=== PATIENT | female | born 1975 | race Caucasian/White ===

== ENCOUNTER 2021-12-26 15:14 | Emergency (ER) | payer OTHER, SELFPAY ==
--- NOTE | ~2021-12-26 | XR_ITS ---
EXAMINATION: XR CHEST CLINICAL INFORMATION: Cough/asthma. COMPARISON: None TECHNIQUE: Frontal view of the chest was obtained. FINDINGS: No significant abnormality is noted involving the heart, lungs, mediastinum, bony thorax or soft tissues. XR/XR chest 1V IMPRESSION: Unremarkable chest examination.
[2021-12-26 15:48] VITALS: BP 158/97; PULSE 112; RESP 20; TEMP 36.3; O2SAT 96; BMI 21.2
[2021-12-26 16:19] LABS: COVID-19 Test Negative (Negative); IDNOW Serial# 16C4AD1C
--- NOTE | 2021-12-26 17:12 | ED_ITS ---
HPI - Asthma General Chief Complaint: Asthma Stated Complaint: asthma Time Seen by Provider: 12/26/21 17:12 Source: patient Mode of arrival: ambulatory Limitations: no limitations History of Present Illness HPI Narrative: 46-year-old female presents to the emergency department with complaints of cough, shortness of breath times a week. Patient tells me that this feels like her typical asthma attack however it has been going on for much longer than her usual asthma. Patient tells me she is coughing up yellow sputum. She also reports shortness of breath worse with exertion better at rest. Patient tells me she was seen by her primary care provider who prescribed her special inhaler, Tessalon Perles with little to no relief. Patient tells me that she has not been feeling good over the past week. Denies any recent sick contacts. Denies chest pain, nausea, vomiting, abdominal pain, headache, vision changes, dizziness. MD complaint: asthma attack Onset (ago): week(s) (1) Severity: moderate Context: none known Associated symptoms: none Treatments Prior to Arrival: inhaled bronchodilator and inhaled steroid Related Data Previous Rx's Medication Instructions Recorded albuterol sulfate 90 mcg/actuation 2 inh INHALATION Q4-6H PRN #1 ea 12/26/21 breath activated powder inhaler azithromycin 250 mg tablet See Rx Instructions .ROUTE 12/26/21 .COMPLEX #6 tab prednisone 20 mg tablet 20 mg PO DAILY 5 Days #5 tab 12/26/21 Allergies Allergy/AdvReac Type Severity Reaction Status Date / Time No Known Allergies Allergy Verified 12/26/21 15:48 Review of Systems Review of Systems: Constitutional : No Weight loss, No Fever, No Chills, No Fatigue, No Malaise ENT/Mouth : No sore throat, No Rhinorrhea Eyes: No Eye Pain, No Swelling, No Redness Cardiovascular : No Chest Pain, + SOB, No Dyspnea on Exertion, No Orthopnea, No Edema, No Palpitations Respiratory : No Cough, No Sputum, + Wheezing Gastrointestinal : No Nausea, No Vomiting, No Diarrhea, No Constipation, No abdominal Pain, No Hematochezia, No Melena Genitourinary : No Dysuria, No Urinary Frequency, No Hematuria, Musculoskeletal : No joint pain, No Myalgias, No Joint Swelling Skin : No Skin Lesions, No rash Neuro : No Weakness, No Numbness, No Dizziness, No Headache Psych : No Anxiety/Panic, No Depression All other systems reviewed and are negative Yes all other systems are reviewed and are negative [facility] Past Medical History Attestation statement: The following information was validated with the patient. Source: old records reviewed and nursing notes reviewed Social History Social History Advance Directives: No Advance Directives Information Provided: No Physical Exam Vital Signs: Vital Signs: Last Vital Signs Temp 99.2 F 12/26/21 20:37 Pulse 112 H 12/26/21 20:37 Resp 16 12/26/21 20:37 BP 127/66 12/26/21 20:37 Pulse Ox 98 12/26/21 20:37 BMI result Body Mass Index 21.2 VSS slightly tachycardic likely secondary to albuterol treatments. Appearance: Alert.? Oriented X3.? No acute distress.? Head: Normocephalic, atraumatic, no step-offs or deformities Eyes: Pupils equal, round and reactive to light.? ENT: Pharynx normal.? Neck: Normal inspection.? Neck supple.? CVS: Normal heart rate and rhythm.? Pulses normal.? Respiratory: No respiratory distress.? Breath sounds normal.? Abdomen: Soft and nontender.? Skin: Skin warm and dry.? Normal skin color.? Normal skin turgor.? Extremities: No lower extremity edema.? No calf ttp. 5/5 strength to bilateral upper and lower extremities Back: No midline tenderness, no C-spine tenderness, full range of motion, no CVA tenderness bilaterally Neuro: Oriented X 3.? No motor deficit.? No sensory deficit. CN 2-12 intact Course Reevaluation(s) Reevaluation #1: CBC with a slight microcytic anemia, however patient not complaining of any bleeding at this time. Chemistry with no acute findings. D-dimer negative unlikely. COVID, flu, RSV negative. Upon re-evaluation after Solu-Medrol and magnesium patient sounds much better, moving air bilaterally, no wheezing appreciated. Patient is saturating well on room air, patient is slightly tachycardic likely secondary to albuterol treatments. Chest x-ray unremarkable. A DuoNeb has been ordered at this time which will be given to patient prior to her discharge. Patient will be discharged home on a Z-Bob, albuterol, predniso ne. Advised her to return with new or worsening symptoms. Patient's history and physical examination consistent with bronchitis. Unlikely PE. Comfortable with discharge home with PCP follow-up. Prior to patient discharge he was ambulating around the emergency department, post ambulatory O2 set and a 2 said during ambulation steadily 98% on room air. At this time patient will be discharged home Time: 21:06 MDM - Asthma MDM Narrative Medical decision making narrative: [id number] 46-year-old female presents with ?asthma attack ?x1 week. Patient also reports productive cough which has been bothering her. Physical examination with diminished breath sounds bilaterally, expiratory wheezing, regular rate and rhythm, negative Abdi bilaterally, abdomen soft nontender nondistended. Neuro exam nonfocal. PERC score of 1 due to tachycardia however tachycardia likely secondary to albuterol treatments at home. Plan at this time is imaging, albuterol treatment, re-evaluation afterwards. Medical Records Attestation: I reviewed the patient's medical records. Lab Data Attestation: I reviewed the patient's lab results. Result diagrams: 12/26/21 17:38 12/26/21 17:38 Labs: Lab Results 12/26/21 12/26/21 12/26/21 Range/Units 15:53 17:38 17:38 WBC 6.9 (4.8-10.8) X10*3/uL RBC 4.74 (4.20-5.50) X10*6/uL Hgb 10.9 L (12.0-16.0) g/dl Hct 35.1 L (37.0-47.0) % MCV 74.1 L (80.0-98.0) fL MCH 23.0 L (27.0-33.0) pg MCHC 31.1 (31.0-35.0) g/dl RDW 17.2 H (11.0-16.0) % Plt Count 345 (160-400) X10*3/uL MPV 8.8 L (9.4-12.3) fL Immature Gran % (Auto) 0.4 (0.0-0.4) % Neut % (Auto) 63.0 (45-73) % Lymph % (Auto) 23.2 (20-40) % [place] % (Auto) 11.1 H (2-11) % Eos % (Auto) 1.9 (0-4) % Baso % (Auto) 0.4 (0-2) % Lymph # (Auto) 1.6 (1.2-4.9) X10*3/uL [place] # (Auto) 0.8 (0.1-1.2) X10*3/uL Eos # (Auto) 0.1 (0.0-0.4) X10*3/uL Baso # (Auto) 0.0 (0.0-0.2) X10*3/uL Abs Immat Gran (auto) 0.03 (0.00-0.03) X10*3/uL Absolute Neuts (auto) 4.3 (2.0-8.3) x10*3/uL Absolute Nucleated RBC 0.000 (0.0-0.012) X10*3/uL Nucleated RBC % (auto) 0.0 (0.0-0.2) /100WBC D-Dimer High Sensitivty < 150 NG/ML Sodium (135-145) mmol/L Potassium (3.3-5.1) mmol/L Chloride (96-108) mmol/L Carbon Dioxide (22-29) mmol/L Anion Gap (12-20) BUN (9-16) mg/dL Creatinine (0.5-1.4) mg/dL Estim Creat Clear Calc Estimated GFR Random Glucose (60-115) mg/dL Calcium (8.4-10.2) mg/dL Magnesium (1.6-2.6) mg/dL Total Bilirubin (0.0-1.0) mg/dL AST (5-31) U/L ALT (0-31) U/L Alkaline Phosphatase (39-117) U/L Total Protein (6.5-8.0) g/dL Albumin (3.5-5.0) g/dL COVID-19 (CROW) Negative (Negative) COVID-19 Clin Com See Note Influenza Type A (PCR) (Negative) Influenza Type B (PCR) (Negative) RSV RNA Qual (PCR) (Negative) SARS-CoV-2 RNA (RT-PCR) (Negative) 12/26/21 12/26/21 Range/Units 17:38 19:19 WBC (4.8-10.8) X10*3/uL RBC (4.20-5.50) X10*6/uL Hgb (12.0-16.0) g/dl Hct (37.0-47.0) % MCV (80.0-98.0) fL MCH (27.0-33.0) pg MCHC (31.0-35.0) g/dl RDW (11.0-16.0) % Plt Count (160-400) X10*3/uL MPV (9.4-12.3) fL Immature Gran % (Auto) (0.0-0.4) % Neut % (Auto) (45-73) % Lymph % (Auto) (20-40) % [place] % (Auto) (2-11) % Eos % (Auto) (0-4) % Baso % (Auto) (0-2) % Lymph # (Auto) (1.2-4.9) X10*3/uL [place] # (Auto) (0.1-1.2) X10*3/uL Eos # (Auto) (0.0-0.4) X10*3/uL Baso # (Auto) (0.0-0.2) X10*3/uL Abs Immat Gran (auto) (0.00-0.03) X10*3/uL Absolute Neuts (auto) (2.0-8.3) x10*3/uL Absolute Nucleated RBC (0.0-0.012) X10*3/uL Nucleated RBC % (auto) (0.0-0.2) /100WBC D-Dimer High Sensitivty NG/ML Sodium 139 (135-145) mmol/L Potassium 4.0 (3.3-5.1) mmol/L Chloride 104 (96-108) mmol/L Carbon Dioxide 24 (22-29) mmol/L Anion Gap 15 (12-20) BUN 13 (9-16) mg/dL Creatinine 0.85 (0.5-1.4) mg/dL Estim Creat Clear Calc 69.8 Estimated GFR > 60 Random Glucose 143 H (60-115) mg/dL Calcium 9.4 (8.4-10.2) mg/dL Magnesium 2.0 (1.6-2.6) mg/dL Total Bilirubin < 0.2 (0.0-1.0) mg/dL AST 27 (5-31) U/L ALT 29 (0-31) U/L Alkaline Phosphatase 67 (39-117) U/L Total Protein 7.0 (6.5-8.0) g/dL Albumin 4.2 (3.5-5.0) g/dL COVID-19 (CROW) (Negative) COVID-19 Clin Com Influenza Type A (PCR) NEGATIVE (Negative) Influenza Type B (PCR) NEGATIVE (Negative) RSV RNA Qual (PCR) NEGATIVE (Negative) SARS-CoV-2 RNA (RT-PCR) NEGATIVE (Negative) Critical Care Time Critical Care Time Critical Care Time: No Discharge Plan Discharge Clinical Impression: Asthma with acute exacerbation, Acute bronchitis Patient Disposition: Home, Self-Care Instructions: Asthma (ED), Acute Bronchitis (ED) Additional Instructions: Take your medications as prescribed. If you were prescribed antibiotics today, it is important that you take your medication to their entirety, do not skip any doses, do not finish them early. Follow-up with your primary care provider this week. Return to the emergency department with new or worsening symptoms. Such as fevers, chills, chest pain, shortness of breath, nausea, vomiting, dizziness, headache, vision changes, lethargy, weakness, leg swelling or calf tenderness In case of emergency call 911 Prescriptions: New azithromycin 250 mg tablet See Rx Instructions .ROUTE .COMPLEX Qty: 6 0RF Rx Instructions: For 250 mg dose pack: take 500 mg today (day 1), then 250 mg for 4 days (days 2-5) albuterol sulfate 90 mcg/actuation aerosol powdr breath activated 2 inh inhalation Q4-6H PRN (Reason: shortness of breath or wheezing) Qty: 1 0RF prednisone 20 mg tablet 20 mg PO DAILY 5 Days Qty: 5 0RF Referrals: Physician,Unknown J [Primary Care Provider] - 2 days Stand Alone Forms: Work/School Release
[2021-12-26 17:18] VITALS: BP 143/59; PULSE 104; RESP 18; O2SAT 98
[2021-12-26 17:43] LABS: MANUAL DIFF FLAG NO
[2021-12-26 17:45] LABS: Basophils Percent Auto 0.4 % (0-2); Eosinophils Absolute Auto 0.1 X10*3/uL (0.0-0.4); Eosinophils Percent Auto 1.9 % (0-4); Hematocrit 35.1 % (37.0-47.0); Hemoglobin 10.9 g/dl (12.0-16.0); Imm Gran Abs Auto 0.03 X10*3/uL (0.00-0.03); Imm Gran Pct Auto 0.4 % (0.0-0.4); Lymphocytes Absolute Auto 1.6 X10*3/uL (1.2-4.9); Lymphocytes Percent Auto 23.2 % (20-40); Mean Corpuscular HGB Conc 31.1 g/dl (31.0-35.0); Mean Corpuscular Volume 74.1 fL (80.0-98.0); Mean Platelet Volume 8.8 fL (9.4-12.3); Monocytes Absolute Auto 0.8 X10*3/uL (0.1-1.2); Monocytes Percent Auto 11.1 % (2-11); Neutrophils Absolute Auto 4.3 x10*3/uL (2.0-8.3); Platelet Count 345 X10*3/uL (160-400); Red Blood Count 4.74 X10*6/uL (4.20-5.50); Red Cell Distribution Width 17.2 % (11.0-16.0); White Blood Count 6.9 X10*3/uL (4.8-10.8)
[2021-12-26 17:50] VITALS: PULSE 102; RESP 18; O2SAT 99
[2021-12-26] MEDS: Albuterol Sulfate (0.083%) 2.5 MG/3 ML VIAL.NEB 10 MG INHALE (17:50)
[2021-12-26 18:03] LABS: D Dimer High Sensitivity < 150 NG/ML
[2021-12-26 18:39] LABS: Alanine Aminotransferase 29 U/L (0-31); Albumin Level 4.2 g/dL (3.5-5.0); Alkaline Phosphatase 67 U/L (39-117); Anion Gap 15 (12-20); Aspartate Amino Transferase 27 U/L (5-31); Bilirubin Total < 0.2 mg/dL (0.0-1.0); Blood Urea Nitrogen 13 mg/dL (9-16); Calcium 9.4 mg/dL (8.4-10.2); Carbon Dioxide 24 mmol/L (22-29); Chloride 104 mmol/L (96-108); Creatinine Clr Calc Pharmacy 69.8; Estimated Glomerular Filt Rate > 60; Glucose Random 143 mg/dL (60-115); Sodium 139 mmol/L (135-145)
[2021-12-26] MEDS: Magnesium Sulfate/H2O 2 GM/50 ML PIGGYBACK IV (19:14)
[2021-12-26] MEDS: methylPREDNISolone Sod Succ 125 MG/2 ML VIAL IVPUSH (19:14)
[2021-12-26 20:05] LABS: Influenza A PCR NEGATIVE (Negative); Influenza B PCR NEGATIVE (Negative); Resp Syncy Virus RNA Qual PCR NEGATIVE (Negative); SARS COV2 PCR INHOUSE NEGATIVE (Negative)
[2021-12-26 20:37] VITALS: BP 127/66; PULSE 112; RESP 16; TEMP 37.3; O2SAT 98
[2021-12-26] MEDS: Ketorolac Tromethamine 15 MG/ML VIAL IVPUSH (21:23)
== END 2021-12-26 21:28 | disposition home or self-care (01) ==
PROVIDERS: Physician Assistant; Emergency Provider Internal Medicine
DX: J45.901 Unspecified asthma with (acute) exacerbation (principal); J20.9 Acute bronchitis, unspecified; Z20.822 Contact with and (suspected) exposure to COVID-19
CPT/HCPCS: 0241U; 36415; 71045; 80053; 83735; 85025; 85379; 87635; 94640; 94644; 96365; 96366; 96375; 99284; J1885; J2930; J3475

== ENCOUNTER 2022-07-18 22:29 | Emergency (ER) | payer OTHER, SELFPAY ==
[2022-07-18 22:34] VITALS: BP 146/92; PULSE 115; RESP 18; TEMP 37.1; O2SAT 96; BMI 45.4
--- NOTE | 2022-07-18 23:17 | ED.WOUNDLAC ---
HPI - Wound/Laceration General Chief Complaint: Wound/Laceration Stated Complaint: Finger lac Time Seen by Provider: 07/18/22 22:47 Source: patient Mode of arrival: ambulatory Limitations: no limitations History of Present Illness HPI narrative: 47-year-old female presents with a laceration to the left index finger. Patient cut her finger while making dinner. Unknown when her last Tdap was updated. Patient also reports upper respiratory symptoms for 3 days. Onset (ago): hour(s) Place: home Patient tetanus UTD: No Context: accidental Associated symptoms: pain Treatments prior to arrival: bandage Related Data Previous Rx's Medication Instructions Recorded albuterol sulfate 90 mcg/actuation 2 inh inhalation Q4-6H PRN 12/26/21 breath activated powder inhaler shortness of breath or wheezing #1 ea azithromycin 250 mg tablet See Rx Instructions PO .COMPLEX #6 12/26/21 tabs prednisone 20 mg tablet 20 mg PO DAILY 5 days #5 tabs 12/26/21 Allergies Allergy/AdvReac Type Severity Reaction Status Date / Time No Known Allergies Allergy Verified 12/26/21 15:48 Review of Systems Review of Systems: Constitutional: Phos Fever, pus Chills ENT/Mouth: No Ear Pain, No Hoarseness, positive sore throat Eyes: No Eye Pain, No Swelling, No Redness, No Foreign Body Cardiovascular: No Chest Pain, No SOB Respiratory: Phos Cough, No Dyspnea Gastrointestinal: No Nausea, No Vomiting, No Diarrhea, No abdominal Pain Genitourinary: No Dysuria, No Hematuria Musculoskeletal: positive left index finger pain, No Myalgias, No Joint Swelling Skin: Positive left index finger laceration, No rash Neuro: No Weakness, No Numbness, No Paresthesias, No Loss of Consciousness, No Dizziness, positive Headache Yes all other systems are reviewed and are negative ON LICENSE OF [facility] Past Medical History Attestation statement: The following information was validated with the patient. Source: old records reviewed Social History Social History Advance Directives: No Advance Directives Information Provided: No Physical Exam Vital Signs: Vital Signs: Last Vital Signs Temp 98.7 F 07/18/22 22:34 Pulse 115 H 07/18/22 22:34 Resp 18 07/18/22 22:34 BP 146/92 H 07/18/22 22:34 Pulse Ox 96 07/18/22 23:45 O2 Del Method 07/18/22 22:34 BMI result Body Mass Index 45.4 Appearance: Alert. Oriented X3. No acute distress. Eyes: Pupils equal, round and reactive to light. ENT: Pharynx normal. Positive rhinorrhea. Neck: Normal inspection. Neck supple. CVS: Tachycardic heart rate and rhythm. Pulses normal. Respiratory: No respiratory distress. Breath sounds normal. Abdomen: Soft and nontender. Skin: 0.5 cm laceration across the left index finger nail. Extremities: Gait well balanced well coordinated. Neuro: No motor deficit. No sensory deficit. Cranial nerves 2-12 intact. Course Course Course Narrative: 47-year-old female presents for multiple concerns. First concern is her upper respiratory symptoms that she has had for about 2-3 days. Has a dry scratchy throat, intermittent fevers and chills, and cough. She presents tachycardic at 115, I do suspect that this is viral syndrome. Second concern is the superficial laceration across her nailbed to the left index finger. Patient does have full range of motion. Nail is not avulsed from the tip of the finger. Plan is for Steri-Strips. Will update Tdap vaccine at this time. Patient understands viral syndrome and supportive measures, most likely the flu. Patient also understands wound care, verbalized understanding of and agrees to plan of care discharge home. I will call her with her results. 04:00 flu positive. I did call this patient to update on positive influenza results. Medications Administered Discontinued Medications Generic Name Dose Route Start Last Admin Trade Name Freq PRN Reason Stop Dose Admin Diphtheria/Tetanus/Acell Pertussis 0.5 ml 07/18/22 22:58 07/18/22 23:05 Diphth,Pertus(Acell),Tet Adult 0.5 Ml Syringe IM 07/18/22 22:59 0.5 ml .ONCE ONE Administration Medical Decision Making Differential Diagnosis Differential Diagnoses: The differential diagnosis associated with the presentation includes Laceration, influenza, COVID, RSV Lab Data [facility] Lab Attestation statement: I reviewed the patient's lab results. Labs: Lab Results 07/18/22 Range/Units 22:43 Influenza Type A (PCR) POSITIVE A (Negative) Influenza Type B (PCR) NEGATIVE (Negative) RSV RNA Qual (PCR) NEGATIVE (Negative) SARS-CoV-2 RNA (RT-PCR) NEGATIVE (Negative) External Record Review External record reviewed: Inpatient record Discharge Plan Discharge Clinical Impression: Laceration, Acute viral syndrome Patient Disposition: Home, Self-Care Instructions: Finger Laceration (ED), Viral Syndrome (ED), Skin Adhesive Care (ED) Additional Instructions: You were evaluated for laceration to the finger. I placed Steri-Strips. Please keep this clean and dry. You may wash her hands as needed. Do not soak the finger. Steri-Strips to fall off on own. We updated your Tdap vaccine today. For upper respiratory symptoms, this is a viral syndrome. Her influenza RSV COVID test is pending. I will call you with your results. Alternate Tylenol 650 mg every 6 hours as needed and Motrin 600 mg every 6 hours as needed for pain and fever management. Write down what time you give the medications to prevent accidental overdose. drink plenty of fluids. Thank you for choosing this emergency department for evaluation. Please follow-up with primary care physician as needed. Return to the emergency department for any new, concerning, or worsening symptoms. Prescriptions: No Action azithromycin 250 mg tablet See Rx Instructions .ROUTE .COMPLEX Qty: 6 0RF Rx Instructions: For 250 mg dose pack: take 500 mg today (day 1), then 250 mg for 4 days (days 2-5) albuterol sulfate 90 mcg/actuation aerosol powdr breath activated 2 inh inhalation Q4-6H PRN (Reason: shortness of breath or wheezing) Qty: 1 0RF prednisone 20 mg tablet 20 mg PO DAILY 5 Days Qty: 5 0RF Interventions: ED Discharge Assessment Last Done: 07/19/22 00:19 Discharge Date/Time: 07/19/22 00:23
[2022-07-18 23:27] LABS: Influenza A PCR POSITIVE (Negative); Influenza B PCR NEGATIVE (Negative); Resp Syncy Virus RNA Qual PCR NEGATIVE (Negative); SARS COV2 PCR INHOUSE NEGATIVE (Negative)
[2022-07-18 23:45] VITALS: O2SAT 96
== END 2022-07-19 00:23 | disposition home or self-care (01) ==
PROVIDERS: Emergency Provider Emergency Medicine; PCP Physician Assistant Medical
DX: J11.1 Influenza due to unidentified influenza virus with other respiratory manifestations (principal); R00.0 Tachycardia, unspecified; S61.211A Laceration without foreign body of left index finger without damage to nail, initial encounter; W45.8XXA Other foreign body or object entering through skin, initial encounter; Y93.G1 Activity, food preparation and clean up; Y92.030 Kitchen in apartment as the place of occurrence of the external cause; Y99.9 Unspecified external cause status; Z20.822 Contact with and (suspected) exposure to COVID-19
CPT/HCPCS: 0241U; 90471; 90715; 99282; 99284

== ENCOUNTER → 2023-04-13 12:48 | Outpatient (BNVA) | payer OTHER, SELFPAY | PROVIDERS: PCP Physician Assistant Medical; Visit Provider Physician Assistant ==

== ENCOUNTER 2023-05-04 12:21 | Outpatient (AMB) | payer OTHER, SELFPAY ==
--- NOTE | 2023-05-04 12:45 | MHC.OFFVISWM ---
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 SWL Relationship Executive Required: Yes Relationship Executive Name: cmi Allergies No Known Allergies Allergy (Verified 05/04/23 12:55) Medication List - Last Reconciled 05/04/23 by ANIL Russo albuterol sulfate 90 mcg/actuation 2 inhalations inhalation Q4-6H PRN amitriptyline 75 mg PO BEDTIME baclofen 20 mg PO BID bupropion HCl 150 mg PO QAM cetirizine 10 mg PO DAILY cyclobenzaprine 5 mg PO TID PRN fluocinonide 0.05% appl topical BID fluticasone propionate 50 mcg/actuation 2 sprays intranasal QAM metformin ER 750 mg PO QPM montelukast 10 mg PO DAILY pantoprazole 40 mg PO DAILY tizanidine 4 mg PO TID triamcinolone acetonide 0.025% topical BID HPI HPI Comments History of Present Illness Details Pt is here to start the [facility] surgical weight loss program. She was here about 3 years ago starting the SWL program w Dr Bocanegra but did not have surgery as she did not have the emotional support at home and she left the program. This issue has been resolved. Her goal is to lose weight and achieve a healthy lifestyle as well as to improve, if not resolve, obesity related medical conditions, including DM and MONICA. She reports first being concerned about her weight 8 years ago, highest weight to date was 268. Her initial presentation to the SWL clinic at [facility] was on 04/13/23 and her weight at that time was 246.2 pounds with a BMI of 42.3. She made the effort to reduce sugars and carbs in her diet. Current weight is 240.2 pounds with a BMI of 40.6. She has tried multiple methods of weight loss including fad diets and previous SWL program without permanent results. She lives with her kids. She does not currently work She states that she has a significant history of bilateral knee osteoarthritis. She is scheduled for a left total knee replacement at [facility] on 06/22/2023 and is planning to have her right total knee replacement done approximately 4-6 months later. She would like to have bariatric surgery between her knee replacement surgeries if possible and this was discussed with her that it is likely going to be possible if she is able to complete the pre-surgical requirements. She wakes at:?8 am, and goes to bed at?10 pm. Dinner is at 6 pm. Breakfast: coffee, eggs toast AM snack: skip or fruit Lunch: leftovers PM snack: fruit Dinner: pasta, rice, meat, salad After dinner: skip Other snacks: celebration time cakes Liquids: 64 oz water daily, no juice, no soda Alcohol/marijuana/tobacco intake: none Exercise: no gym membership, no cardio equipment at home. willing to join gym [employer] or [employer] or [facility]. GERD score: 16 LIONEL score: 4 ESS score: 18 QOL score: 124 [facility] Surgical History History of Ritchie colposuspension H/O knee surgery Family History Mother Diabetes Father Leukemia Daughter Asthma Son No problems noted. Son No problems noted. Daughter No problems noted. Social History Household Members: Children Housing: Apartment Alcohol intake: current Alcohol intake frequency: holidays/special occasions only Patient Tobacco Use Status: Never used Tobacco Current occupational status: unemployed Review of Systems Const All systems reviewed & are unremarkable except as noted in HPI and below Physical Exam Vital Signs: Last Vital Signs Temp 97.4 F 05/04/23 12:59 Pulse 96 05/04/23 12:59 BP 153/87 H 05/04/23 12:59 Pulse Ox 96 05/04/23 12:59 Oxygen Delivery Method Room Air 05/04/23 12:59 BMI result Body Mass Index 40.6 Const General: cooperative, healthy appearing and no acute distress Orientation/consciousness: patient oriented x3 HEENT Head: Yes normal to inspection Ears: hearing grossly normal bilaterally General nose exam: Normal external nose present Face and sinus: Yes normal facial exam Eyes General: appearance normal, both eyes and all related structures Resp Effort & Inspection: normal respiratory effort Auscultation: clear to auscultation bilaterally Cardio Rate: regular rate Rhythm: regular rhythm Heart sounds: S1 normal heart sound present and S2 normal heart sound present GI Inspection: Yes normal to inspection, No distended and Yes obesity Palpation (GI): Soft to palpation, nontender and no guarding Auscultation: normal bowel sounds Skin General skin exam: no rashes or lesions noted Neuro General: patient oriented x3 Extrem General: No edema Psych Appearance: grossly normal Mental Status: mental status grossly normal Speech and movement: Normal speech and movement present Affect: normal affect Attitude: cooperative Assessment & Plan Assessment & Plan (1) Morbid obesity: Code(s): E66.01 - Morbid (severe) obesity due to excess calories Plan: This is a?48 yo female who will start our SWL program to prepare for bariatric surgery.? Blood work, h pylori , CXR, ECG, Abd US and UGI have been ordered. She is being scheduled for RD and BH initial consultations. She will start SWL classes and watch the first three videos before her next appointment. ? Adequate sleep of 7-8 hours per night discussed, awakening at 8 am and going to bed at 10 pm ? Purchase body composition analyzer scale (Sachi lim or Raman recommended) and check weight weekly. The best time to do this is first thing in the morning after going to the bathroom. 1. Nutritional counseling: Be sure to careful read the number of scoops per shake Start with 2 Celebrate Rebuild shakes ([facility] [employer], [employer], [place]) First shake (1.5 scoops in 15 oz low fat unsweetened almond milk) at 9am-11am, Second shake (1.5 scoops in 15 oz low fat unsweetened almond milk) at 11am-1pm 1 protein bar ([employer] bars at [facility] [employer], [employer], [place]) at 1pm-3pm. Dinner at 5-6pm (8 forks of protein and 8 forks of salad/vegetables). Meal to include lean meat (beef, fish, pork, turkey, chicken), cooked vegetables or a salad with olive oil and/or fruits (berries, pears, apples, kiwi). Avoid salt, breads, potatoes, rice, pasta, desserts. Another protein bar at 7pm-9pm. Try to drink 64 oz of water daily and avoid soda and juices. ?2. Each shake would be drunk slowly, like coffee in a period of 2 hours. ?3. Cut each bar in 4 pieces and eat each piece in 30 min ?to make each bar last 2 hours. ?4. I emphasized the importance of measuring accurately the food portion and measure it carefully when serving the food on the plate ?5. The meal portions include 8 full-size forks of meat and 8 full-size forks of salad. You always eat the meat portion but you can replace up to half of the forks of salad/vegetables with rice, potatoes or pasta, or a fruit ?if you like. The less you do it the better weight loss will be. ?6. One full-size fork is what can be scooped on the fork without falling aside and not what can be bit with the fork. Use regular forks like those you find in a typical restaurant. ?7.? Please send me weight measurements as soon as possible and then once a week. Always include your diet and exercise plan. Alternatively come weekly at the office for weight checks and send me the measurements. ?8. Exercise counseling: Begin by watching a stretching for beginners video. Start slowly and begin to stretch your muscles. You should do this before and after each exercise session to prevent injury. Please join [employer] or [employer] or [employer] gym near your home. Ask the analytics senior manager or one of the trainers how to use the machines if you are unfamiliar with them. Start elliptical with a resistance of 2. Increase resistance by 1 every 3 min to your most comfortable resistance with a max resistance of 8. Reduce the resistance by 1 every 3 minutes back down to 2 and repeat cycles for 300 calories. Alternatively, start treadmill with a speed of 3.0 and incline of 0, increasing incline by 1 every 3 minutes to the highest comfortable level (max 6 for now) then decrease in the same fashion. Repeat process to a goal of 300 calories. Goal of 2000 calories burned or more weekly. You may also consider use of the stationary bike. The easiest would be to chose the fat-burn or interval training program on the machine and do this until you reach the 300 calorie goal. Alternatively, you can manually adjust the resistance in a similar fashion as mentioned above, (resistance of 2-8 with a goal speed of 12 mph). Tracking calories is essential. 9. Alternatively start walking outside daily, tracking calories with a goal of 300 calories per day, daily. You can download the breanne [employer] which can track your time, distance and calories while walking outside. You press start in the breanne when you start and then stop when you are finished. 10.? It is important to avoid for at least 18 months postoperatively and it has been discussed at the information session 11. Please get labs, EKG and chest X-Ray within 1 week. 12. Discussed and answered all questions regarding?obtained consent to participate in the [place] [facility]?Registry. 13. Please follow the diet plan exactly, without any change. If you do not like something about the plan or you feel hungry, you need to communicate with me so I can help you revise the plan. You should not change the plan yourself. Text me at [phone] 14. Goal is to lose at least 12 pounds in the first month 15. Goal is to lose 10% of your weight before surgery, which is about 24 lbs. Ultimate weight goal: 216 lbs before surgery Patient is morbidly obese and is not considered stable at this time.?I spent a total of 70 minutes reviewing/updating records, examining the patient and counseling the patient on weight management as detailed above. Orders: Orders Insulin Today E11.9 - Type 2 diabetes mellitus without complications, E66.01 - Morbid (severe) obesity due to excess calories Lipid Panel Today E11.9 - Type 2 diabetes mellitus without complications, E66.01 - Morbid (severe) obesity due to excess calories Vitamin B12 and Folate Today E11.9 - Type 2 diabetes mellitus without complications, E66.01 - Morbid (severe) obesity due to excess calories Vitamin A Today E11.9 - Type 2 diabetes mellitus without complications, E66.01 - Morbid (severe) obesity due to excess calories C Reactive Protein Today E11.9 - Type 2 diabetes mellitus without complications, E66.01 - Morbid (severe) obesity due to excess calories PTHI Today E11.9 - Type 2 diabetes mellitus without complications, E66.01 - Morbid (severe) obesity due to excess calories TSH reflex Free T4 Today E11.9 - Type 2 diabetes mellitus without complications, E66.01 - Morbid (severe) obesity due to excess calories H Pylori Breath Test Today E11.9 - Type 2 diabetes mellitus without complications, E66.01 - Morbid (severe) obesity due to excess calories Vitamin D 25-OH Total Today E11.9 - Type 2 diabetes mellitus without complications, E66.01 - Morbid (severe) obesity due to excess calories US abdomen comp w elastography Today E11.9 - Type 2 diabetes mellitus without complications, E66.01 - Morbid (severe) obesity due to excess calories ECG 12 lead EKG Today E11.9 - Type 2 diabetes mellitus without complications, E66.01 - Morbid (severe) obesity due to excess calories FL upper GI w air Today E11.9 - Type 2 diabetes mellitus without complications, E66.01 - Morbid (severe) obesity due to excess calories IRON PROFILE Today E11.9 - Type 2 diabetes mellitus without complications, E66.01 - Morbid (severe) obesity due to excess calories Complete Blood Count Auto Diff Today E11.9 - Type 2 diabetes mellitus without complications, E66.01 - Morbid (severe) obesity due to excess calories Zinc Today E11.9 - Type 2 diabetes mellitus without complications, E66.01 - Morbid (severe) obesity due to excess calories Comprehensive Met. Panel Today E11.9 - Type 2 diabetes mellitus without complications, E66.01 - Morbid (severe) obesity due to excess calories Vitamin B1 Today E11.9 - Type 2 diabetes mellitus without complications, E66.01 - Morbid (severe) obesity due to excess calories Ferritin Today E11.9 - Type 2 diabetes mellitus without complications, E66.01 - Morbid (severe) obesity due to excess calories Hemoglobin A1c Today E11.9 - Type 2 diabetes mellitus without complications, E66.01 - Morbid (severe) obesity due to excess calories XR chest 2V Today E11.9 - Type 2 diabetes mellitus without complications, E66.01 - Morbid (severe) obesity due to excess calories Referrals Nutrition/Dietitian Referral E11.9 - Type 2 diabetes mellitus without complications, E66.01 - Morbid (severe) obesity due to excess calories Behavioral Health Referral E11.9 - Type 2 diabetes mellitus without complications, E66.01 - Morbid (severe) obesity due to excess calories Coding Level of Care Code New Pt Level 5 (07701) Diagnoses Morbid obesity E66.01 Time Spent (min) 70
[2023-05-04 12:59] VITALS: BP 153/87; PULSE 96; TEMP 36.3; O2SAT 96; BMI 41.2
== END 2023-05-04 14:27 | disposition home or self-care (01) ==
PROVIDERS: PCP Physician Assistant Medical; Visit Provider Physician Assistant Surgical
DX: E66.01 Morbid (severe) obesity due to excess calories (principal); Z68.41 Body mass index [BMI] 40.0-44.9, adult
CPT/HCPCS: 99205

== ENCOUNTER → 2023-05-04 12:21 | Outpatient (BNVA) | payer OTHER, SELFPAY | PROVIDERS: PCP Physician Assistant Medical; Visit Provider Physician Assistant Surgical ==

== ENCOUNTER 2023-05-25 10:52 | Outpatient (REF) | payer OTHER, SELFPAY ==
--- NOTE | ~2023-05-25 | XR_ITS ---
EXAMINATION: XR CHEST CLINICAL INFORMATION: Morbid (severe) obesity due to excess calories COMPARISON: Chest 12/26/2021 TECHNIQUE: 2 views of the chest were obtained. FINDINGS: No significant abnormality is noted involving the heart, lungs, mediastinum, bony thorax or soft tissues. XR/XR chest 2V IMPRESSION: Unremarkable examination.
--- NOTE | 2023-05-25 10:57 | ECG_ITS ---
Test Reason : OBESITY Blood Pressure : / mmHG Vent. Rate : 103 BPM Atrial Rate : 103 BPM P-R Int : 124 ms QRS Dur : 078 ms QT Int : 322 ms P-R-T Axes : 039 046 024 degrees QTc Int : 421 ms Sinus tachycardia Otherwise normal ECG When compared with ECG of 17-JUN-2018 13:39, No significant change was found Referred By: Aleksey Darby Electronically Signed By:ATA CORBETT MD
[2023-05-25 11:19] LABS: MANUAL DIFF FLAG NO
[2023-05-25 11:46] LABS: Basophils Absolute Auto 0.1 X10*3/uL (0.0-0.2); Basophils Percent Auto 0.5 % (0-2); Eosinophils Absolute Auto 0.4 X10*3/uL (0.0-0.4); Hematocrit 35.5 % (37.0-47.0); Imm Gran Abs Auto 0.03 X10*3/uL (0.00-0.03); Imm Gran Pct Auto 0.3 % (0.0-0.4); Lymphocytes Absolute Auto 2.3 X10*3/uL (1.2-4.9); Lymphocytes Percent Auto 21.9 % (20-40); Mean Corpuscular Hemoglobin 21.7 pg (27.0-33.0); Mean Corpuscular Volume 69.9 fL (80.0-98.0); Mean Platelet Volume 8.8 fL (9.4-12.3); Monocytes Absolute Auto 0.7 X10*3/uL (0.1-1.2); Monocytes Percent Auto 6.8 % (2-11); Neutrophils Absolute Auto 6.9 x10*3/uL (2.0-8.3); Neutrophils Percent Auto 66.5 % (45-73); Platelet Count 462 X10*3/uL (160-400); Red Blood Count 5.08 X10*6/uL (4.20-5.50); Red Cell Distribution Width 17.3 % (11.0-16.0); White Blood Count 10.4 X10*3/uL (4.8-10.8)
[2023-05-25 11:50] LABS: Estimated Average Glucose 154 mg/dL
[2023-05-25 12:42] LABS: Alanine Aminotransferase 35 U/L (0-31); Albumin Level 4.3 g/dL (3.5-5.0); Alkaline Phosphatase 101 U/L (39-117); Anion Gap 12 (12-20); Aspartate Amino Transferase 31 U/L (5-31); Bilirubin Total 0.3 mg/dL (0.0-1.0); Blood Urea Nitrogen 11 mg/dL (9-16); C Reactive Protein 5.57 mg/dL (< or = 0.50); Calcium 9.9 mg/dL (8.4-10.2); Carbon Dioxide 28 mmol/L (22-29); Chloride 103 mmol/L (96-108); Cholesterol 207 mg/dL (<200); Estimated Glomerular Filt Rate > 60; Glucose Random 131 mg/dL (60-115); HDL Cholesterol 28 mg/dL (>40); Iron 18 mcg/dL (30-160); LDL Cholesterol Calculated 154 mg/dL (<100); Percent Iron Saturation 5 % (15-50); Potassium 3.9 mmol/L (3.3-5.1); Sodium 139 mmol/L (135-145); Total Iron Binding Capacity 362 mcg/dL (228-428); Total Protein 7.8 g/dL (6.5-8.0); Triglycerides 129 mg/dL (<150); Unsaturated Iron Binding 344 ug/dL
[2023-05-25 12:50] LABS: Ferritin 44 ng/mL (10-250); Insulin 17 uU/mL (2-29); TSH reflex Free T4 1.03 uIU/mL (0.32-4.0); Vitamin D 25-OH Total 26.7 ng/mL (>30)
[2023-05-25 13:07] LABS: Folate 13.8 ng/mL (> or = 4.0); Vitamin B12 975 pg/mL (200-900)
[2023-05-28 23:24] LABS: Zinc 66 mcg/dL (60-130)
[2023-05-30 00:48] LABS: Vitamin B1 19 nmol/L (8-30)
[2023-05-30 08:54] LABS: Vitamin A 27 mcg/dL (38-98)
[2023-06-01 09:54] LABS: Calcium (PTHI) 9.5 mg/dL (8.6-10.2); PTHI 54 pg/mL (16-77)
== END 2023-05-25 10:53 | disposition home or self-care (01) ==
LOC: HO.XRAY 10:52
PROVIDERS: Visit Provider Physician Assistant Surgical
DX: E66.01 Morbid (severe) obesity due to excess calories (principal); E11.9 Type 2 diabetes mellitus without complications
CPT/HCPCS: 36415; 71046; 80053; 80061; 82306; 82607; 82728; 82746; 83036; 83525; 83540; 83970; 84425; 84443; 84590; 84630; 85025; 86140; 93005

== ENCOUNTER 2023-05-26 10:12 | Outpatient (AMB) | payer OTHER, SELFPAY ==
--- NOTE | 2023-05-26 10:16 | MHC.OFFVISWM ---
Intake VS Expanded 05/26/23 10:26 BP 142/72 H Blood Pressure Location Lt brachial Blood Pressure Position Sitting Pulse 116 H Pulse Source Pulse Oximeter Temp 97.7 F Temperature Source Tympanic Pulse Oximetry 98 Oxygen Delivery Method Room Air Height 5 ft 4.5 in Weight 236 lb 3.2 oz BMI 39.9 Body Fat % 45.2 Body Fat Mass 106.8 Fat Free Mass 129.4 Visceral Fat Rating 13.0 Body Water % 39.1 Body Water Mass 92.4 Muscle Mass/Score 122.8 Basal Metabolic Rate/Score 1,819 Intake Visit Reasons: (OV) F/U SWL + H.Pylori Bar Examiner Required: Yes Bar Examiner Name: office cmi Allergies No Known Allergies Allergy (Verified 05/26/23 10:35) Medication List - Last Reconciled 05/26/23 by ANIL Russo albuterol sulfate 90 mcg/actuation 2 inhalations inhalation Q4-6H PRN amitriptyline 75 mg PO BEDTIME baclofen 20 mg PO BID bupropion HCl 150 mg PO QAM cetirizine 10 mg PO DAILY cholecalciferol (vitamin D3) 125 mcg PO DAILY 90 days cyclobenzaprine 5 mg PO TID PRN fluocinonide 0.05% appl topical BID fluticasone propionate 50 mcg/actuation 2 sprays intranasal QAM iron,carbonyl-vitamin C 65 mg iron- 125 mg (Vitron-C) 1 tab PO DAILY 90 days metformin ER 750 mg PO QPM montelukast 10 mg PO DAILY pantoprazole 40 mg PO DAILY tizanidine 4 mg PO TID triamcinolone acetonide 0.025% topical BID HPI HPI Comments History of Present Illness Details The patient is a pleasant 48 year old female who returns to the clinic for pre-operative surgical weight loss management. They were last seen in the office on 05/04/23, recorded weight at that time was 240.2 pounds, with a BMI of 41.2. Today's weight is 236.2 pounds and BMI is 40.6. There has been a weight loss of 10 pounds since initiating the surgical weight loss program on 04/13/23 with a total body weight loss of 4 %. Pre op work up completed as follows: SWL classes:? []/8 BH appts: 06/14/23 ? ? RD appts: 06/01/23 Labs: 05/25/23 A1c:7, mild anemia H. pylori: 05/26/23 CXR: not yet done EKG: not yet done ABD U/S: 06/19/23 UGI: 07/21/23 The patient reports she woke 2 days ago with significant low back pain. This is nonradiating, no significant bowel bladder changes. She saw a chiropractor yesterday although no manipulation was a double D done because of increased swelling. She has not sought any other medical care at this time. She is still scheduled for left total knee replacement on 06/22/2023. She states she is scheduled to go to [place] next week for approximately 2 weeks.. She is having coffee in the morning and having meal at lunch and dinner and apple for snack. She has not been able to purchase the protein products yet due to financial reasons. The patient does not have a body composition scale. They also have not been communicating weekly. Discussed the importance of following the plan, communicating and getting a scale. Current meal plan includes: 2 Celebrate Rebuild shakes ([facility] [employer], [employer], [employer]) First shake (1.5 scoops in 15 oz low fat unsweetened almond milk) at 9am-11am, Second shake (1.5 scoops in 15 oz low fat unsweetened almond milk) at 11am-1pm 1 protein bar ([employer] bars at [facility] [employer], [employer], [employer]) at 1pm-3pm. Dinner at 5-6pm (8 forks of protein and 8 forks of salad/vegetables). Meal to include lean meat (beef, fish, pork, turkey, chicken), cooked vegetables or a salad with olive oil and/or fruits (berries, pears, apples, kiwi). Avoid salt, breads, potatoes, rice, pasta, desserts. Another protein bar at 7pm-9pm. Drinking 64 oz of water Current exercise plan includes: cardio videos at home until back injury. [facility] Surgical History History of Ritchie colposuspension H/O knee surgery Family History Mother Diabetes Father Leukemia Daughter Asthma Son No problems noted. Son No problems noted. Daughter No problems noted. Social History Household Members: Children Housing: Apartment Alcohol intake: current Alcohol intake frequency: holidays/special occasions only Patient Tobacco Use Status: Never used Tobacco Current occupational status: unemployed Review of Systems Const All systems reviewed & are unremarkable except as noted in HPI and below Physical Exam Const General: healthy appearing and no acute distress Limitations: other limitations (back pain) Resp Effort & Inspection: normal respiratory effort Auscultation: clear to auscultation bilaterally Cardio Rate: regular rate Rhythm: regular rhythm GI Auscultation: normal bowel sounds Extrem General: Yes normal to inspection Assessment & Plan Assessment & Plan (1) Morbid obesity: Code(s): E66.01 - Morbid (severe) obesity due to excess calories Plan: She states that she will follow the meal plan, she will follow-up in the office after her left total knee replacement. She will text with any questions as well as her weekly weight. She will of attempt to get the body composition skill and protein products and start the meal plan. Coding Level of Care Code Est Pt Level 3 (91310) Diagnoses Morbid obesity E66.01
[2023-05-26 10:26] VITALS: BP 142/72; PULSE 116; TEMP 36.5; O2SAT 98; BMI 39.9
== END 2023-05-26 11:02 | disposition home or self-care (01) ==
PROVIDERS: PCP Physician Assistant Medical; Visit Provider Physician Assistant Surgical
DX: E66.01 Morbid (severe) obesity due to excess calories (principal); Z68.41 Body mass index [BMI] 40.0-44.9, adult
CPT/HCPCS: 99213

== ENCOUNTER → 2023-05-26 10:12 | Outpatient (BNVA) | payer OTHER, SELFPAY | PROVIDERS: PCP Physician Assistant Medical; Visit Provider Physician Assistant Surgical | DX: E66.01 Morbid (severe) obesity due to excess calories (principal); Z68.39 Body mass index [BMI] 39.0-39.9, adult | CPT/HCPCS: 99212 ==

== ENCOUNTER → 2023-06-20 13:06 | Outpatient (BNVA) | payer OTHER, SELFPAY | PROVIDERS: PCP Physician Assistant Medical; Visit Provider Dietitian, Registered | DX: E66.9 Obesity, unspecified (principal) | CPT/HCPCS: 97802 ==

== ENCOUNTER 2023-06-29 11:30 | Outpatient (AMB) | payer OTHER, SELFPAY ==
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
== END 2023-07-19 15:00 | disposition home or self-care (01) ==
LOC: HO.HBST 11:52
PROVIDERS: PCP Physician Assistant Medical; Visit Provider Counselor Mental Health
DX: F43.10 Post-traumatic stress disorder, unspecified (principal); F33.9 Major depressive disorder, recurrent, unspecified; F41.9 Anxiety disorder, unspecified
CPT/HCPCS: 90791

== ENCOUNTER → 2023-06-29 11:30 | Outpatient (BNVA) | payer OTHER, SELFPAY | PROVIDERS: PCP Physician Assistant Medical; Visit Provider Counselor Mental Health ==

== ENCOUNTER 2023-08-09 10:00 | Outpatient (AMB) | payer OTHER, SELFPAY ==
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
--- OUTSIDE RECORDS SUMMARY | 2023-08-09 10:39 | XMS_ITS | Continuity of Care Document ---
Author Name Unknown Organization [facility] Address Unknown Care Team Providers Care Physician Support Coordinator Name Role Phone Passer Regina MA Primary Care Physician Encounter [facility] Date(s): 02/11/21 - 03/14/21 [facility] Attending Physician: Kumar Mittal MD Admitting Physician: Kumar Mittal MD Allergies, Adverse Reactions, Alerts Substance Reaction Severity Status NKA Active Immunizations Given and Recorded Vaccine Date Status Refusal Reason SARS-CoV-2 (COVID-19) Ad26 vaccine 12/16/20 Given influenza virus vaccine, inactivated 05/28/20 Give n influenza virus vaccine, inactivated 06/22/18 Give n influenza virus vaccine, inactivated 06/26/17 Give n influenza virus vaccine, inactivated 08/30/16 Give n influenza virus vaccine, inactivated 05/20/15 Give n tetanus/diphtheria/pertussis, acel(Tdap) 10/17/18 Given pneumococcal 23-valent vaccine 10/17/18 Given Medications Advair HFA 115 mcg / 21 mcg 2 puffs, Inhalation, 2 times a day, for asthma rinse mouth and throat after use label in cuban, #60 each, 11 Refills, Maintenance, 12/05/19 11:01:00 EDT, Aerosol, [id number], 2 puffs Inhalation 2 times a day,Instr:for asthma; rinse mouth... Start Date: 12/05/19 Status: Ordered Aerochamber w/Mask (Large) See Instructions, # 1 each, Maintenance, dx asthma use as needed, 06/28/17 15:17:40, Compound Start Date: 06/28/17 Status: Ordered albuterol 0.083% inhalation solution 3 mL = 2.5 mg, Inhalation, Every 4 hours, PRN for wheezing, # 75 each, 4 Refills, Maintenance, 12/05/19 11:01:00 EDT, Solution, [facility]/pharmacy #[id number], 160.02, cm, 06/14/19 11:58:00 EST, Height, 107.2, kg, 06/14/19 11:02:00 EST, Dry Weight Start Date: 12/05/19 Status: Ordered albuterol CFC free 90 mcg/inh inhalation aerosol 2, puffs, Inhalation, 4 times a day, PRN, cuban label, # 25 Gm, Refills 11, Tot. Refills 11, Maintenance, 12/05/19 11:01:00 EDT, Aerosol, Route to Pharmacy Electronically, [id number], [facility]/pharmacy #[id number], 160.02, cm, ... Start Date: 12/05/19 Status: Ordered Back seat cushion for Manual wheel chair Back seat cushion for Manual wheel chair, See Instructions, # 1 each, Refills 0, Tot. Refills 0, Maintenance, Dx:Critical illness Myopathy, 09/29/20 14:26:00 EST, Supply Start Date: 09/29/20 Status: Ordered baclofen 20 mg oral tablet 1, tablet, By Mouth, 2 times a day, FOR MUSCLE PAIN., # 60 tablet, Refills 3, Tot. Refills 3, Maintenance, 11/13/20 13:57:00 EDT, Route to Pharmacy Electronically, [facility]/pharmacy #[id number], 160.02, cm, 11/13/20 13:37:00 EDT, Height, 113.18, kg, 04/20/20 14:... Start Date: 11/13/20 Status: Ordered Blood Pressure Monitor See Instructions, # 1 each, Maintenance, check daily dx elevated BP, 06/28/17 15:17:41, Compound Start Date: 06/28/17 Status: Ordered buPROPion 150 mg/24 hours (XL) oral tablet, extended release 1 tablet = 150 mg, By Mouth, Every 24 hours, # 30 tablet, 0 Refills, Maintenance, 10/17/18 8:37:45 EDT, ER Tablet Start Date: 10/17/18 Status: Ordered Cane See Instructions, # 1 each, Maintenance, dx knee pain, 08/19/15 16:38:57, Compound Start Date: 08/19/15 Status: Ordered cetirizine 10 mg oral tablet 1 tablet = 10 mg, By Mouth, Daily, for allergies cuban label, # 90 tablet, 1 Refills, Maintenance, 12/01/20 18:55:00 EDT, Tablet, [facility]/pharmacy #[id number], 160.02, cm, 11/13/20 13:37:00 EDT, Height, 113.18, kg, 04/20/20 14:58:00 EDT, Dry Weight Start Date: 12/01/20 Status: Ordered clonazePAM 1 mg oral tablet TOME BONIFACIO TABLETA DOS VECES AL D A CUANDO SEA NECESARIO Start Date: 12/05/19 Status: Ordered Compression Stockings See Instructions, # 1 pair, Maintenance, 15-20mmHg knee length wear daily dx varicose veins, 06/10/15 10:47:06, Compound Start Date: 06/10/15 Status: Ordered escitalopram 20 mg oral tablet 0 Refills, Maintenance, 10/17/18 8:58:12 EDT Start Date: 10/17/18 Status: Ordered Flonase 50 mcg/inh nasal spray 2 sprays, Nares, Both, Daily in AM, for allergies label in cuban, # 16 Gm, 5 Refills, Maintenance, 12/14/20 10:44:00 EDT, [place], [facility]/pharmacy #[id number], 2 sprays Nares, Both Daily in AM,Instr:for allergies; label in cuban, 160.02, cm, 11/13/20 13:37:... Start Date: 12/14/20 Status: Ordered Folding Front wheel Walker Folding Front wheel Walker, See Instructions, # 1 each, Refills 0, Tot. Refills 0, Maintenance, Dx:Critical Illness Myopathy, Fall risk, 10/23/20 12:30:00 EDT, Supply Start Date: 10/23/20 Status: Ordered gabapentin 600 mg oral tablet 0 Refills, Maintenance, 09/28/20 11:31:00 EST, Partial fill upon patient request if the prescription is for a schedule II opioid drug. Start Date: 09/28/20 Status: Ordered hydrochlorothiazide 25 mg oral tablet 25 mg, 1, tablet, By Mouth, Daily, for swelling in legs label in cuban, # 30 tablet, Refills 0, Tot. Refills 0, Maintenance, 10/29/20 17:53:00 EDT, Route to Pharmacy Electronically, [facility]/pharmacy #[id number], Partial fill upon patient request if the presc... Start Date: 10/29/20 Status: Ordered knee brace knee brace, See Instructions, # 1 pair, Refills 0, Tot. Refills 0, Maintenance, dx Osteoarthritis wear daily as needed, 12/20/17 11:19:05 EDT, Compound Start Date: 12/20/17 Status: Ordered knee brace knee brace, See Instructions, # 1 pair, Refills 0, Tot. Refills 0, Maintenance, wear daily dx knee pain b/l, 02/09/16 11:54:12, Compound Start Date: 02/09/16 Status: Ordered Manual wheel chair Manual wheel chair, See Instructions, # 1 each, Refills 0, Tot. Refills 0, Maintenance, Dx:Criticalillness Myopathy, 09/29/20 14:26:00 EST, Supply Start Date: 09/29/20 Status: Ordered metFORMIN 500 mg oral tablet, extended release 1 tablet = 500 mg, By Mouth, Daily, for blood sugar label in cuban with evening meal, # 30 tablet, 3 Refills, Maintenance, 12/16/20 18:22:00 EDT, ER Tablet, [facility]/pharmacy #[id number], Partial fill upon patient request if the prescription is for a schedul... Start Date: 12/16/20 Status: Ordered montelukast 10 mg oral tablet See Instructions, GINO FELIPE TODOS [place], # 90 tablet, Refills 1, Maintenance, Instructions Replace Required Details, Route to Pharmacy Electronically, [facility] STORE [id number], 160.02, cm, 01/27/21 17:35:00 EDT, Height, 113.18, kg, 04/20/20 14:58:00... Start Date: 01/28/21 Status: Ordered nabumetone 750 mg oral tablet 1 tablet = 750 mg, By Mouth, 2 times a day, for pain with food label in cuban, # 60 tablet, 3 Refills, Maintenance, 11/13/20 13:58:00 EDT, Tablet, [facility]/pharmacy #[id number], Partial fill upon patient request if the prescription is for a schedule II opioi... Start Date: 11/13/20 Status: Ordered Nebulizer/Compressor See Instructions, # 1 each, Maintenance, use as needed dx asthma, 06/06/17 17:41:21, Compound Start Date: 06/06/17 Status: Ordered norethindrone 5 mg oral tablet 15 mg, 3, tablet, By Mouth, Daily, # 90 tablet, Refills 11, Tot. Refills 11, Maintenance, 02/06/20 10:08:00 EDT, Route to Pharmacy Electronically, [facility]/pharmacy #[id number], 160.02, cm, 06/14/19 11:58:00 EST, Height, 107.2, kg, 06/14/19 11:02:00 EST, Dry Weight Start Date: 02/06/20 Stop Date: 01/31/21 Status: Ordered omeprazole 40 mg oral enteric coated capsule See Instructions, TOME BONIFACIO CAPSULA POR VIA ORAL TODOS [place], # 30 capsule, 11 Refills, 11/13/20 13:57:00 EDT, [facility]/pharmacy #[id number], 160.02, cm, 11/13/20 13:37:00 EDT, Height, 113.18, kg, 04/20/20 14:58:00 EDT, Dry Weight Start Date: 11/13/20 Status: Ordered propranolol 120 mg oral capsule, extended release TOME BONIFACIO C PSULA TODOS LOS D EN LA MA DAVID Start Date: 12/05/19 Status: Ordered Pulse Ox Pulse Ox, See Instructions, # 1 each, Refills 0, Tot. Refills 0, Maintenance, Dx: asthma Check O2 level daily and as needed., 10/07/20 13:29:00 EDT, Supply Start Date: 10/07/20 Status: Ordered Seat cushion for manual wheel chair Seat cushion for manual wheel chair, See Instructions, # 1 each, Refills 0, Tot. Refills 0, Maintenance, Dx:Critical illness Myopathy, 09/29/20 14:26:00 EST, Supply Start Date: 09/29/20 Status: Ordered Splint See Instructions, # 2 each, Maintenance, wear as needed dx CTS, 04/21/15 9:55:57, Compound Start Date: 04/21/15 Status: Ordered traZODone 100 mg oral tablet 100 mg, 1, tablet, By Mouth, 2 times a day, # 180 tablet, Refills 0, Maintenance, 10/17/18 8:38:05 EDT Start Date: 10/17/18 Status: Ordered visco heel cups visco heel cups, See Instructions, # 1 pair, Refills 0, Tot. Refills 0, Maintenance, cuban. wear daily in tennis shoes for plantar fasciitis, 12/13/18 13:20:31 EDT, Compound Start Date: 12/13/18 Status: Ordered zolpidem 10 mg oral tablet 1 tablet = 10 mg, By Mouth, Daily at bedtime, PRN as needed for insomnia, 0 Refills, Maintenance, 10/17/18 8:58:05 EDT, Tablet Start Date: 10/17/18 Status: Ordered Problem List Condition Effective Dates Status Health Status Inform ant Asthma(Confirmed) Active Binge eating disorder, mild, in partial remission(Confirmed) Active Obesity (BMI 30-39.9)(Confirmed) Active Depression(Confirmed) Active Nipple discharge in female(Confirmed) Active Glucose intolerance(Confirmed) Active Endometriosis(Confirmed) Active GERD (gastroesophageal reflu x disease)(Confirmed) Active H/O vaginal delivery(Confirmed) 1 Active History of ectopic (Confirmed) Active HLD (hyperlipidemia)(Confirmed) Active Hyperlipidemia(Confirmed) Active Knee pain(Confirmed) Active Low back pain(Confirmed) Active Migraines(Confirmed) Active MONICA on CPAP(Confirmed) 06/09/16 Active Breast pain, right(Confirmed) Active 08/01/95 - ANA MARÍA Santiago , 04/30/99 ANA MARÍA Almanzar , 07/16/2000, Cesar , 02/22/04 Ciera Social History Social History Type Response Smoking Status Never (less than 100 in lifetime);Never entered on: 04/20/20 Sex
--- OUTSIDE RECORDS SUMMARY | 2023-08-09 10:39 | XMS_ITS | Continuity of Care Document ---
Author Name Unknown Organization [facility] Address [address] [place] [address]- Care Team Providers Care Magician/Illusionist Name Role Phone Passer Regina MA Primary Care Physician [place] [facility] [place] 10/[place]/20 [facility]/[address] [address]- Allergies, Adverse Reactions, Alerts Substance Reaction Severity Status NKA Active Immunizations Given and Recorded Vaccine Date Status Refusal Reason influenza virus vaccine, inactivated 05/28/20 Give n [...] mouth and throat after use label in paraguayan, #60 each, 11 Refills, Maintenance, 12/05/19 11:01:00 EDT, [facility], [id number], 2 puffs Inhalation 2 times a day,Instr:for asthma; rinse mouth... Start Date: 12/05/19 Status: Ordered Aerochamber w/Mask (Large) See Instructions, # 1 each, Maintenance, dx asthma use as needed, 06/28/17 15:17:40, Compound Start Date: 06/28/17 Status: Ordered albuterol 0.083% inhalation solution 3 mL = 2.5 mg, Inhalation, Every 4 hours, PRN for wheezing, # 75 each, 4 Refills, Maintenance, 12/05/19 11:01:00 EDT, Solution, [facility]/pharmacy #[id number], 160.02, cm, 06/14/19 11:58:00 EST, Height, 107.2, kg, 06/14/19 11:02:00 EST, Dry Weight Start Date: 12/05/19 Status: Ordered albuterol CFC free 90 mcg/inh inhalation aerosol 2, puffs, Inhalation, 4 times a day, PRN, paraguayan label, # 25 Gm, Refills 11, Tot. Refills 11, Maintenance, 12/05/19 11:01:00 EDT, Aerosol, Route to Pharmacy Electronically, [id number], [facility]/pharmacy #[id number], 160.02, cm, ... Start Date: 12/05/19 [...] FOR MUSCLE PAIN., # 60 tablet, Refills 2, Tot. Refills 0, Maintenance, 08/31/20 8:49:00 EST, Route to Pharmacy Electronically, [facility] STORE [id number], 160.02, cm, 08/27/20 8:49:00 EST, Height, 113.18, kg, 04/20/20 14:58:00... Start Date: 08/31/20 Status: Ordered Blood Pressure Monitor See Instructions, [...] 16:38:57, Compound Start Date: 08/19/15 Status: Ordered CeleBREX 200 mg oral capsule 1 capsule = 200 mg, By Mouth, 2 times a day, for back and joint pains with food label in paraguayan, #60 capsule, 2 Refills, Maintenance, 05/28/20 11:58:00 EST, Capsule, [facility]/pharmacy #[id number], 160.02, cm,05/28/20 11:02:00 EST, Height, 113.18, kg, ... Start Date: 05/28/20 Status: Ordered cetirizine 10 mg oral tablet 1 tablet = 10 mg, By Mouth, Daily, for allergies paraguayan label, # 90 tablet, 1 Refills, Maintenance, 10/09/20 11:23:00 EDT, Tablet, [facility]/pharmacy #[id number], 160.02, cm, 09/21/20 14:20:00 EST, Height, 113.18, kg, 04/20/20 14:58:00 EDT, Dry Weight Start Date: 10/09/20 Status: Ordered clonazePAM 1 mg oral tablet [...] Daily in AM, for allergies label in paraguayan, # 16 Gm, 11 Refills, Maintenance, 12/05/19 11:01:00 EDT, [place], [facility]/pharmacy #[id number], 2 sprays Nares, Both Daily in AM,Instr:for allergies; label in paraguayan, 160.02, cm, 06/14/19 11:58... Start Date: 12/05/19 Status: Ordered gabapentin 600 mg oral tablet 0 Refills, Maintenance, 09/28/20 11:31:00 EST, Partial fill upon patient request if the prescription is for a schedule II opioid drug. Start Date: 09/28/20 Status: Ordered hydrochlorothiazide 25 mg oral tablet 25 mg, 1, tablet, By Mouth, Daily, for swelling in legs label in paraguayan, # 30 tablet, Refills 0, Tot. Refills 0, Maintenance, 10/09/20 14:23:00 EDT, Route to Pharmacy Electronically, [facility]/pharmacy #[id number], Partial fill upon patient request if the presc... Start Date: 10/09/20 Status: Ordered knee brace knee brace, See [...] EST, Supply Start Date: 09/29/20 Status: Ordered Nebulizer/Compressor See Instructions, # 1 each, Maintenance, use as needed dx asthma, 06/06/17 17:41:21, Compound Start Date: 06/06/17 Status: Ordered norethindrone 5 mg oral tablet 15 mg, 3, tablet, By Mouth, Daily, # 90 tablet, Refills 11, Tot. Refills 11, Maintenance, 02/06/20 10:08:00 EDT, Route to Pharmacy Electronically, [facility]/pharmacy #[id number], 160.02, cm, 06/14/19 11:58:00 EST, Height, 107.2, kg, 06/14/19 11:02:00 EST, Dry Weight Start Date: 02/06/20 Stop Date: 01/31/21 Status: Ordered omeprazole 40 mg oral enteric coated capsule See Instructions, TOME BONIFACIO CAPSULA POR VIA ORAL TODOS [place], # 30 capsule, 3 Refills, Maintenance, [facility] STORE [id number], 160.02, cm, 05/28/20 11:02:00 EST, Height, 113.18, kg, 04/20/20 14:58:00 EDT, Dry Weight Start Date: 07/23/20 Status: Ordered propranolol 120 mg oral capsule, extended release TOME BONIFACIO C PSULA TODOS LOS D EN LA [place] DAVID Start Date: 12/05/19 Status: Ordered Pulse [...] EST, Supply Start Date: 09/29/20 Status: Ordered Singulair 10 mg oral tablet 10 mg, 1, tablet, By Mouth, Daily, for allergy and asthma label in paraguayan, # 90 tablet, Refills 3,Tot. Refills 3, Maintenance, 12/05/19 11:01:00 EDT, Route to Pharmacy Electronically, [facility]/pharmacy #[id number], 160.02, cm, 06/14/19 11:58:00 EST, Height, 1... Start Date: 12/05/19 Status: Ordered Splint See Instructions, # 2 [...] pair, Refills 0, Tot. Refills 0, Maintenance, paraguayan. wear daily in tennis shoes for plantar [...] Depression(Confirmed) Active Nipple discharge in female(Confirmed) Active Endometriosis(Confirmed) Active GERD (gastroesophageal reflu x disease)(Confirmed) Active H/O vaginal delivery(Confirmed) 1 Active History of ectopic (Confirmed) Active HLD (hyperlipidemia)(Confirmed) Active Knee pain(Confirmed) Active Low back pain(Confirmed) Active Migraines(Confirmed) Active MONICA on CPAP(Confirmed) 06/09/16 Active Breast pain, right(Confirmed) Active 08/01/95 - ANA MARÍA Santiago , 04/30/99 David Almanzar , 07/16/2000, Cesar , 02/22/04 Ciera Social History Social History Type Response Smoking Status Never (less than 100 in lifetime);Never entered on: 04/20/20 Sex
--- OUTSIDE RECORDS SUMMARY | 2023-08-09 10:39 | XMS_ITS | Continuity of Care Document ---
Author Name Unknown Organization [facility] Address [address] [place] [id number]- Care Team Providers Care Adult Protective Caseworker Name Role Phone Passer Regina MA Primary Care Physician [place] [facility] [place] 12[place]/[address] [address] Attending Physician: AdmSara storm Admitting Physician: AdmtrSara Referring Physician: Admtr, Ar8 Allergies, Adverse Reactions, Alerts Substance Reaction Severity [...] mouth and throat after use label in somali, #60 each, 11 Refills, Maintenance, 12/05/19 11:01:00 EDT, [facility], [id number], 2 puffs Inhalation 2 times a day,Instr:for asthma; rinse mouth... Start Date: 12/05/19 Status: Ordered Aerochamber w/Mask (Large) See Instructions, # 1 each, Maintenance, dx asthma use as needed, 06/28/17 15:17:40, Compound Start Date: 06/28/17 Status: Ordered albuterol 0.083% inhalation solution 3 mL = 2.5 mg, Inhalation, Every 4 hours, PRN for wheezing, # 75 each, 4 Refills, Maintenance, 12/05/19 11:01:00 EDT, Solution, [facility]/pharmacy #[id number], 160.02, cm, 06/14/19 11:58:00 EST, Height, 107.2, kg, 06/14/19 11:02:00 EST, Dry Weight Start Date: 12/05/19 Status: Ordered albuterol CFC free 90 mcg/inh inhalation aerosol 2, puffs, Inhalation, 4 times a day, PRN, somali label, # 25 Gm, Refills 11, Tot. Refills 11, Maintenance, 12/05/19 11:01:00 EDT, Aerosol, Route to Pharmacy Electronically, [id number], [facility]/pharmacy #[id number], 160.02, cm, ... Start Date: 12/05/19 [...] 11/13/20 13:57:00 EDT, Route to Pharmacy Electronically, [facility]/pharmacy #[id number], 160.02, cm, 11/13/20 13:37:00 EDT, Height, [...] 10 mg, By Mouth, Daily, for allergies somali label, # 90 tablet, 1 Refills, Maintenance, 12/01/20 18:55:00 EDT, Tablet, [facility]/pharmacy #[id number], 160.02, cm, 11/13/20 13:37:00 EDT, Height, [...] Daily in AM, for allergies label in somali, # 16 Gm, 11 Refills, Maintenance, 12/05/19 11:01:00 EDT, [place], [facility]/pharmacy #[id number], 2 sprays Nares, Both Daily in AM,Instr:for allergies; label in somali, 160.02, cm, 06/14/19 11:58... Start Date: 12/05/19 Status: Ordered Folding Front wheel Walker Folding [...] Daily, for swelling in legs label in somali, # 30 tablet, Refills 0, Tot. Refills 0, Maintenance, 10/29/20 17:53:00 EDT, Route to Pharmacy Electronically, [facility]/pharmacy #[id number], Partial fill upon patient request if [...] EST, Supply Start Date: 09/29/20 Status: Ordered nabumetone 750 mg oral tablet 1 tablet = 750 mg, By Mouth, 2 times a day, for pain with food label in somali, # 60 tablet, 3 Refills, Maintenance, 11/13/20 13:58:00 EDT, Tablet, [facility]/pharmacy #[id number], Partial fill upon patient request if [...] 02/06/20 10:08:00 EDT, Route to Pharmacy Electronically, [facility]/pharmacy #[id number], 160.02, cm, 06/14/19 11:58:00 EST, Height, 107.2, kg, 06/14/19 11:02:00 EST, Dry Weight Start Date: 02/06/20 Stop Date: 01/31/21 Status: Ordered omeprazole 40 mg oral enteric coated capsule See Instructions, TOME BONIFACIO CAPSULA POR VIA ORAL TODOS [place], # 30 capsule, 11 Refills, 11/13/20 13:57:00 EDT, [facility]/pharmacy #[id number], 160.02, cm, 11/13/20 13:37:00 EDT, Height, [...] Daily, for allergy and asthma label in somali, # 90 tablet, Refills 3,Tot. Refills 3, Maintenance, 12/05/19 11:01:00 EDT, Route to Pharmacy Electronically, [facility]/pharmacy #[id number], 160.02, cm, 06/14/19 11:58:00 EST, Height, [...] pair, Refills 0, Tot. Refills 0, Maintenance, somali. wear daily in tennis shoes for plantar [...] Active Breast pain, right(Confirmed) Active 08/01/95 - Pamela , 04/30/99 David Almanzar , 07/16/2000, Cesar , 02/22/04 Ciera Social History Social History Type Response Smoking Status Never (less than 100 in lifetime);Never entered on: 04/20/20 Sex
--- OUTSIDE RECORDS SUMMARY | 2023-08-09 10:39 | XMS_ITS | Continuity of Care Document ---
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 Start Date: 12/05/19 Status: Ordered Aerochamber w/Mask (Large) See Instructions, # 1 each, Maintenance, dx asthma use as needed, 06/28/17 15:17:40, Compound Start Date: 06/28/17 Status: Ordered albuterol 0.083% inhalation solution 3 mL = 2.5 mg, Inhalation, Every 4 hours, PRN for wheezing, # 75 each, 4 Refills, Maintenance, 12/05/19 11:01:00 EDT, Solution, [facility]/pharmacy #[id number], 160.02, cm, 06/14/19 11:58:00 EST, Height, 107.2, kg, 06/14/19 11:02:00 EST, Dry Weight Start Date: 12/05/19 Status: Ordered albuterol CFC free 90 mcg/inh inhalation aerosol 2, puffs, Inhalation, 4 times a day, PRN, burundian label, # 25 Gm, Refills 11, Tot. Refills 11, Maintenance, 12/05/19 11:01:00 EDT, Aerosol, Route to Pharmacy Electronically, [id number], [facility]/pharmacy #[id number], 160.02, cm, ... Start Date: 12/05/19 Status: Ordered amitriptyline 25 mg oral tablet 25 mg, 1, tablet, By Mouth, Daily at bedtime, for FERRERA and Fibromyalgia label in burundian, # 90 tablet, Refills 0, Tot. Refills 0, Maintenance, 02/04/19 14:21:26 EDT, Route to Pharmacy Electronically, [id number], [facility]/pharmacy #... Start Date: 02/04/19 Status: Ordered baclofen 20 mg oral tablet 20 mg, 1, tablet, By Mouth, 2 times a day, for muscle pain label in burundian, # 60 tablet, Refills 2, Tot. Refills 2, Maintenance, 05/28/20 11:58:00 EST, Route to Pharmacy Electronically, [facility]/pharmacy#[id number], 160.02, cm, 05/28/20 11:02:00 EST, Height,... Start Date: 05/28/20 Status: Ordered Blood Pressure Monitor See Instructions, [...] and joint pains with food label in burundian, #60 capsule, 2 Refills, Maintenance, 05/28/20 11:58:00 EST, Capsule, [id number], 160.02, cm,05/28/20 11:02:00 EST, Height, 113.18, kg, 04/20/... Start Date: 05/28/20 Status: Ordered cetirizine 10 mg oral tablet 1 tablet = 10 mg, By Mouth, Daily, for allergies burundian label, # 90 tablet, 1 Refills, Maintenance, 03/23/20 9:46:00 EDT, Tablet, [id number], 160.02, cm, 06/14/19 11:58:00 EST, Height, 107.2, kg, 06/14/19 11:02:00 EST, Dry Weight Start Date: 03/23/20 Status: Ordered clonazePAM 1 mg oral tablet [...] Daily in AM, for allergies label in burundian, # 16 Gm, 11 Refills, Maintenance, 12/05/19 11:01:00 EDT, Mathis, [id number], 2 sprays Nares, Both Daily in AM,Instr:for allergies; label in burundian, 160.02, cm, 06/14/19 11:58... Start Date: 12/05/19 Status: Ordered ipratropium nasal 42 mcg/inh spray 2 sprays, Nares, Both, Daily at bedtime, AMERICAN., # 1 each, 5 Refills, Maintenance, 01/22/18 11:32:47 EDT, 2 sprays Nares, Both Daily at bedtime,x30 days,Instr:AMERICAN. Start Date: 01/22/18 Stop Date: 07/21/18 Status: Ordered ketoconazole 1% topical shampoo See Instructions, wash hair with 2-3 times per week label in burundian, # 125 mL, 6 Refills, Maintenance, 05/28/20 11:59:00 EST, [facility]/pharmacy #[id number], wash hair with 2-3 times per week; label in burundian,160.02, cm, 05/28/20 11:02:00 EST, Height, 113.18,... Start Date: 05/28/20 Status: Ordered knee brace knee brace, See Instructions, # 1 pair, Refills 0, Tot. Refills 0, Maintenance, dx Osteoarthritis wear daily as needed, 12/20/17 11:19:05 EDT, Compound Start Date: 12/20/17 Status: Ordered knee brace knee brace, See Instructions, # 1 pair, Refills 0, Tot. Refills 0, Maintenance, wear daily dx knee pain b/l, 02/09/16 11:54:12, Compound Start Date: 02/09/16 Status: Ordered lidocaine 5% topical ointment 1 applicator, Topically, 3 times a day, for shoulder and knee pain wash hands thoroughly after application label in burundian, # 50 Gm, 3 Refills, Maintenance, 10/17/18 8:56:11 EDT, 1 applicator Topically 3 times a day,Instr:for shoulder and knee pain... Start Date: 10/17/18 Status: Ordered Nebulizer/Compressor See Instructions, # 1 each, Maintenance, use as needed dx asthma, 06/06/17 17:41:21, Compound Start Date: 06/06/17 Status: Ordered norethindrone 5 mg oral tablet 15 mg, 3, tablet, By Mouth, Daily, # 90 tablet, Refills 11, Tot. Refills 11, Maintenance, 02/06/20 10:08:00 EDT, Route to Pharmacy Electronically, [facility]/pharmacy #[id number], 160.02, cm, 06/14/19 11:58:00 EST, Height, 107.2, kg, 06/14/19 11:02:00 EST, Dry Weight Start Date: 02/06/20 Stop Date: 01/31/21 Status: Ordered omeprazole 40 mg oral enteric coated capsule See Instructions, TOME BONIFACIO CAPSULA POR VIA ORAL TODOS [place], # 30 capsule, 3 Refills, Maintenance, [facility] STORE [id number], 160.02, cm, 05/28/20 11:02:00 EST, Height, 113.18, kg, 04/20/20 14:58:00 EDT, Dry Weight Start Date: 07/23/20 Status: Ordered pregabalin 100 mg oral capsule TOME BONIFACIO C PSULA TODOS LOS D AL ACOSTARSE Start Date: 12/05/19 Status: Ordered propranolol 120 mg oral capsule, extended release TOME BONIFACIO C PSULA TODOS LOS D EN LA MA DAVID Start Date: 12/05/19 Status: Ordered propranolol 80 mg oral capsule, extended release 80 mg, 1, capsule, By Mouth, Daily, # 30 capsule, Refills 0, Maintenance, 10/17/18 8:38:00 EDT Start Date: 10/17/18 Status: Ordered Singulair 10 mg oral tablet 10 mg, 1, tablet, By Mouth, Daily, for allergy and asthma label in burundian, # 90 tablet, Refills 3,Tot. Refills 3, Maintenance, 12/05/19 11:01:00 EDT, Route to Pharmacy Electronically, [facility]/pharmacy #[id number], 160.02, cm, 06/14/19 11:58:00 EST, Height, 1... Start Date: 12/05/19 Status: Ordered Splint See Instructions, # 2 each, Maintenance, wear as needed dx CTS, 04/21/15 9:55:57, Compound Start Date: 04/21/15 Status: Ordered traZODone 100 mg oral tablet 100 mg, 1, tablet, By Mouth, 2 times a day, # 180 tablet, Refills 0, Maintenance, 10/17/18 8:38:05 EDT Start Date: 10/17/18 Status: Ordered triamcinolone 0.025% topical cream 1 application, Topically, 3 times a day, apply a thin film to affected area label in burundian, # 60 Gm, 1 Refills, Maintenance, 05/28/20 11:59:00 EST, Cream, [facility]/pharmacy #[id number], 1 application Topically 3 times a day,Instr:apply a thin film; to affect... Start Date: 05/28/20 Status: Ordered triamcinolone 0.025% topical lotion 1 application, Topically, 2 times a day, for itchy scalp apply a thin film label in burundian, # 60 mL, 1 Refills, Maintenance, 12/05/19 11:03:00 EDT, Lotion, [facility]/pharmacy #[id number], 1 application Topically 2 times a day,Instr:for itchy scalp; apply a thi... Start Date: 12/05/19 Status: Ordered visco heel cups visco heel cups, See Instructions, # 1 pair, Refills 0, Tot. Refills 0, Maintenance, burundian. wear daily in tennis shoes for plantar [...] right(Confirmed) Active 08/01/95 - Pamela , 04/30/99 Yhoan , 07/16/2000, Cesar , 02/22/04 Ciera Social History Social History Type Response Smoking Status Never (less than 100 in lifetime);Never entered on: 04/20/20 Sex
--- OUTSIDE RECORDS SUMMARY | 2023-08-09 10:39 | XMS_ITS | Continuity of Care Document ---
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 Role Phone Passer Regina MA Primary Care Physician [place] [facility] [place] [facility] [id number] Date(s): 01/09/23 - 02/08/23 [facility]/[address] [address]- Attending Physician: Sara Zaldivar Admitting Physician: Sara Zaldivar Referring Physician: AdmtrSara Allergies, Adverse Reactions, Alerts No Known Allergies Immunizations Given and Recorded Vaccine Date Status Refusal Reason [id number] 12y+ bivalent booster vax 06/23/22 Given influenza virus vaccine, inactivated 05/27/22 Give n influenza virus vaccine, inactivated 05/28/20 Give n influenza virus vaccine, inactivated 06/22/18 Give n influenza virus vaccine, inactivated 06/26/17 Give n influenza virus vaccine, inactivated 08/30/16 Give n influenza virus vaccine, inactivated 05/20/15 Give n SARS-CoV-2 mRNA ([id number]) vax 11/02/21 Recorded SARS-CoV-2 (COVID-19) mRNA BNT-162b2 vac 07/10/21 Given SARS-CoV-2 (COVID-19) Ad26 vaccine 12/16/20 Given tetanus/diphtheria/pertussis, acel(Tdap) 10/17/18 Given pneumococcal 23-valent vaccine 10/17/18 Given Medications Aerochamber w/Mask (Large) See Instructions, # 1 each, Maintenance, dx asthma use as needed, 06/28/17 15:17:40, Compound Start Date: 06/28/17 Status: Ordered albuterol 0.083% inhalation solution 3 mL = 2.5 mg, Inhalation, Every 4 hours, PRN for wheezing, # 75 each, 6 Refills, Maintenance, 01/11/22 11:04:00 EDT, Solution, [facility]/pharmacy #[id number], 160.02, cm, 11/10/21 8:41:00 EDT, Height, 113.18, kg, 04/20/20 14:58:00 EDT, Dry Weight Start Date: 01/11/22 Status: Ordered albuterol CFC free 90 mcg/inh inhalation aerosol 2, puffs, Inhalation, 4 times a day, PRN, somali label, # 25 Gm, Refills 11, Tot. Refills 11, Maintenance, 12/23/21 12:20:00 EDT, Aerosol, Route to Pharmacy Electronically, [id number], [facility]/pharmacy #[id number], 160.02, cm, ... Start Date: 12/23/21 Status: Ordered Alcohol pads Alcohol pads, See Instructions, # 100 each, Refills 6, Tot. Refills 6, Maintenance, Dx: T2DM, checkBS 1-2 times daily, 08/11/22 15:47:00 EST, Supply, 160.02, cm, 08/09/22 10:52:00 EST, Height Start Date: 08/11/22 Status: Ordered atorvastatin 20 mg oral tablet 1 tablet = 20 mg, By Mouth, Daily, for cholesterol label in somali, # 90 tablet, 1 Refills, Maintenance, 10/07/22 8:45:00 EDT, Tablet, [facility]/pharmacy #[id number], Partial fill upon patient request if the prescription is for a schedule II opioid drug., 160.0... Start Date: 10/07/22 Status: Ordered Back seat cushion for Manual wheel chair Back seat cushion for Manual wheel chair, See Instructions, # 1 each, Refills 0, Tot. Refills 0, Maintenance, Dx:Critical illness Myopathy, 09/29/20 14:26:00 EST, Supply Start Date: 09/29/20 Status: Ordered benzonatate 100 mg oral capsule 2 capsule = 200 mg, By Mouth, 3 times a day, PRN as needed for cough, # 30 capsule, 0 Refills, Maintenance, 07/20/22 15:16:00 EST, Capsule, [facility]/pharmacy #[id number], Partial fill upon patient request if the prescription is for a schedule II opioid drug., 16... Start Date: 07/20/22 Status: Ordered Blood Pressure Monitor See Instructions, [...] Mouth, 2 times a day, for pain and inflammation with food label in somali, # 60 capsule, 3 Refills, Maintenance, 10/07/22 8:44:00 EDT, Capsule, [facility]/pharmacy #[id number], DiscontinueNabumetone, 160.02, cm, 10/07/22 8:16:00 EDT, Height Start Date: 10/07/22 Status: Ordered cetirizine 10 mg oral tablet 1 tablet, By Mouth, Daily, FOR ALLERGIES., # 30 tablet, 11 Refills, 04/14/22 14:32:00 EDT, [facility]/pharmacy #[id number], 160.02, cm, 04/14/22 14:24:00 EDT, Height, 113.18, kg, 04/20/20 14:58:00 EDT, Dry Weight Start Date: 04/14/22 Status: Ordered cloNIDine 0.1 mg oral tablet 0.1 mg, 1, tablet, By Mouth, 2 times a day, # 60 tablet, Refills 5, Tot. Refills 5, Maintenance, 01/05/23 10:05:00 EDT, Route to Pharmacy Electronically, [facility]/pharmacy #[id number], Partial fill upon patientrequest if the prescription is for a schedule II op... Start Date: 01/05/23 Status: Ordered Compression Stockings See Instructions, # 1 pair, Maintenance, 15-20mmHg knee length wear daily dx varicose veins, 06/10/15 10:47:06, Compound Start Date: 06/10/15 Status: Ordered cyclobenzaprine 5 mg oral tablet 1 tablet, By Mouth, 3 times a day, FOR MUSCLE PAIN., # 90 tablet, 2 Refills, Maintenance, 01/04/23 10:54:00 EDT, [id number], 160.02, cm, 10/14/22 11:16:00 EDT, Height Start Date: 01/04/23 Status: Ordered escitalopram 20 mg oral tablet 0 Refills, Maintenance, 10/17/18 8:58:12 EDT Start Date: 10/17/18 Status: Ordered ferrous sulfate 325 mg oral enteric coated tablet 325 mg, 1, tablet, By Mouth, Daily, with food for anemia label in somali, # 30 tablet, Refills 2, Tot. Refills 2, Maintenance, 08/11/22 15:48:00 EST, Route to Pharmacy Electronically, [facility]/pharmacy #[id number], Partial fill upon patient request if the pres... Start Date: 08/11/22 Status: Ordered Folding Front wheel Walker Folding Front wheel Walker, See Instructions, # 1 each, Refills 0, Tot. Refills 0, Maintenance, Dx:Critical Illness Myopathy, Fall risk, 10/23/20 12:30:00 EDT, Supply Start Date: 10/23/20 Status: Ordered Free Styl Lite Test Stips Free Styl Lite Test Stips, See Instructions, # 50 each, Refills 11, Tot. Refills 11, Maintenance, Dx: T2DM, check BS 1-2 times daily, 08/11/22 15:47:00 EST, Supply, 160.02, cm, 08/09/22 10:52:00 EST,Height Start Date: 08/11/22 Status: Ordered Free Style Lite Glucometer Free Style Lite Glucometer, See Instructions, # 1 each, Refills 0, Tot. Refills 0, Maintenance, Dx:T2DM, check BS 1-2 times daily, 08/11/22 15:47:00 EST, Supply, 160.02, cm, 08/09/22 10:52:00 EST, Height Start Date: 08/11/22 Status: Ordered Free Style Lite Lancets. Free Style Lite Lancets., See Instructions, # 50 each, Refills 11, Tot. Refills 11, Maintenance, Dx: T2DM, check BS 1-2 times daily, 08/11/22 15:47:00 EST, Supply, 160.02, cm, 08/09/22 10:52:00 EST, Height Start Date: 08/11/22 Status: Ordered gabapentin 600 mg oral tablet 1 tablet = 600 mg, By Mouth, Daily at bedtime, for nerve pain label in somali, # 90 tablet, 1 Refills, Maintenance, 10/07/22 8:48:00 EDT, Tablet, [facility]/pharmacy #[id number], Partial fill upon patient request if the prescription is for a schedule II opioid d... Start Date: 10/07/22 Status: Ordered knee brace knee brace, See Instructions, # 1 pair, Refills 0, Tot. Refills 0, Maintenance, dx Osteoarthritis wear daily as needed, 12/20/17 11:19:05 EDT, Compound Start Date: 12/20/17 Status: Ordered knee brace knee brace, See Instructions, # 1 pair, Refills 0, Tot. Refills 0, Maintenance, wear daily dx knee pain b/l, 02/09/16 11:54:12, Compound Start Date: 02/09/16 Status: Ordered Lupron Depot 3.75 mg intramuscular kit = 3.75 mg, Intramuscular, Every 28 days, # 1 each, 11 Refills, Maintenance, 10/13/22 11:43:00 EDT, [facility], Partial fill upon patient request if the prescription is for a schedule II opioid drug., 160.02, cm, 10/13/22 11:23:00 E... Start Date: 10/13/22 Status: Ordered Manual wheel chair Manual wheel chair, See Instructions, # 1 each, Refills 0, Tot. Refills 0, Maintenance, Dx:Criticalillness Myopathy, 09/29/20 14:26:00 EST, Supply Start Date: 09/29/20 Status: Ordered Maxalt 10 mg oral tablet 1 tablet = 10 mg, By Mouth, Once, PRN as needed for migraine headache, may repeat in 2 hours if response unsatisfactory label in somali, # 12 tablet, 2 Refills, Soft Stop, 05/27/22 17:10:00 EDT, Tablet, [facility]/pharmacy #[id number], Partial fill upon patient... Start Date: 05/27/22 Status: Ordered metFORMIN 750 mg oral tablet, extended release 1 tablet = 750 mg, By Mouth, Daily, for diabetes with evening meal label in somali dosage adjustment, # 90 tablet, 1 Refills, Maintenance, 10/07/22 8:44:00 EDT, ER Tablet, [facility]/pharmacy #[id number], Partial fill upon patient request if the prescription i... Start Date: 10/07/22 Status: Ordered Nebulizer/Compressor See Instructions, # 1 each, Maintenance, use as needed dx asthma, 06/06/17 17:41:21, Compound Start Date: 06/06/17 Status: Ordered pantoprazole 40 mg oral delayed release tablet See Instructions, [facility] GRAJ[facility] [place], # 90 tablet, 1 Refills, Maintenance, 02/05/23 23:55:00 EDT, 160.02, cm, 01/05/23 10:47:00 EDT, Height Start Date: 02/05/23 Status: Ordered Pulse Ox Pulse Ox, See [...] Date: 10/17/18 Status: Ordered triamcinolone 0.025% topical lotion 1 application, Topically, 2 times a day, for itchy scalp apply a thin film label in somali, # 60 mL, 1 Refills, Maintenance, 04/14/22 14:42:00 EDT, Lotion, [id number], 1 application Topically 2 times a day,Instr:for itchy scalp; apply a thi... Start Date: 04/14/22 Status: Ordered visco heel cups visco heel [...] Date: 10/17/18 Status: Ordered Problem List Condition Confirmation Course Effective Dates Status H ealth Status Informant DUB (dysfunctional uterine bleeding) Confirmed Active Asthma Confirmed Active Binge eating disorder, mild, in partial remission Confirmed Active Obesity (BMI 30-39.9) Confirmed Active Chronic neck pain Confirmed Active Depression Confirmed Active Diabetes Confirmed Active Nipple discharge in female Confirmed Active Glucose intolerance Confirmed Active Endometriosis Confirmed Active GERD (gastroesophageal reflux disease) Confirmed Active H/O vaginal delivery 1 Confirmed Active History of ectopic Confirmed Active HLD (hyperlipidemia) Confirmed Active Hyperlipidemia Confirmed Active Knee pain Confirmed Active Low back pain Confirmed Active Migraines Confirmed Active Multiple joint pain Confirmed Active MONICA on CPAP Confirmed 06/09/16 Active Breast pain, right Confirmed Active Severe obesity Confirmed Active 08/01/95 - Pamela , 04/30/99 Yohan , 07/16/2000, Cesar , 02/22/04 Ciera Social History Social History Type Response Smoking Status Never (less than 100 in lifetime);Never entered on: 04/20/20 Sex Laboratory * Event Display: Non BH Lab Results Authored Date: * Event Display: Non BH Lab Results Authored Date: * Event Display: Non BH Lab Results Authored Date: Patient Care team information Care Team Personnel Name: Regina Worrell Position: S PCO Associate Professional Member Role: PCP Address: Address: [address] [place] [address] Care Team Related Persons Name: PAMELA CHAVEZ Address: home [address] [address] Name: NIK PÉREZ Address: home [address] [address]
--- OUTSIDE RECORDS SUMMARY | 2023-08-09 10:39 | XMS_ITS | Continuity of Care Document ---
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 Name Role Phone Passer Regina MA Primary Care Physician Encounter [facility] [place] Date(s): 10/17/22 - 11/16/22 [facility]astro[facility] [address] [place] [address]- Allergies, Adverse Reactions, Alerts No Known Allergies Immunizations Given and Recorded Vaccine Date Status Refusal Reason [id number] 12y+ bivalent booster vax 06/23/22 Given influenza virus vaccine, inactivated 05/27/22 Give n influenza virus vaccine, inactivated 05/28/20 Give n influenza virus vaccine, inactivated 06/22/18 Give n influenza virus vaccine, inactivated 06/26/17 Give n influenza virus vaccine, inactivated 08/30/16 Give n influenza virus vaccine, inactivated 05/20/15 Give n SARS-CoV-2 mRNA ([id number]) vax 11/02/21 Recorded SARS-CoV-2 (COVID-19) mRNA BNT-162b2 [...] 6 Refills, Maintenance, 01/11/22 11:04:00 EDT, Solution, [id number], 160.02, cm, 11/10/21 8:41:00 EDT, Height, 113.18, kg, 04/20/20 14:58:00 EDT, Dry Weight Start Date: 01/11/22 Status: Ordered albuterol CFC free 90 mcg/inh inhalation aerosol 2, puffs, Inhalation, 4 times a day, PRN, v[place] citizen label, # 25 Gm, Refills 11, Tot. Refills 11, Maintenance, 12/23/21 12:20:00 EDT, Aerosol, Route to Pharmacy Electronically, [id number], [facility]/pharmacy #[id number], 160.02, cm, ... Start Date: 12/23/21 Status: Ordered Alcohol pads Alcohol pads, See Instructions, # 100 each, Refills 6, Tot. Refills 6, Maintenance, Dx: T2DM, checkBS 1-2 times daily, 08/11/22 15:47:00 EST, Supply, 160.02, cm, 08/09/22 10:52:00 EST, Height Start Date: 08/11/22 Status: Ordered atorvastatin 20 mg oral tablet 1 tablet = 20 mg, By Mouth, Daily, for cholesterol label in vatican citizen, # 90 tablet, 1 Refills, Maintenance, 10/07/22 8:45:00 EDT, Tablet, [id number], Partial fill upon patient request if [...] 0 Refills, Maintenance, 07/20/22 15:16:00 EST, Capsule, [id number], Partial fill upon patient request if [...] pain and inflammation with food label in vatican citizen, # 60 capsule, 3 Refills, Maintenance, 10/07/22 8:44:00 EDT, Capsule, [facility]/pharmacy #[id number], DiscontinueNabumetone, 160.02, cm, 10/07/22 8:16:00 EDT, Height Start Date: 10/07/22 Status: Ordered cetirizine 10 mg oral tablet 1 tablet, By Mouth, Daily, FOR ALLERGIES., # 30 tablet, 11 Refills, 04/14/22 14:32:00 EDT, [id number], 160.02, cm, 04/14/22 14:24:00 EDT, Height, 113.18, kg, 04/20/20 14:58:00 EDT, Dry Weight Start Date: 04/14/22 Status: Ordered Compression Stockings See Instructions, # 1 pair, Maintenance, 15-20mmHg knee length wear daily dx varicose veins, 06/10/15 10:47:06, Compound Start Date: 06/10/15 Status: Ordered cyclobenzaprine 5 mg oral tablet 1 tablet = 5 mg, By Mouth, 3 times a day, for muscle pain label in vatican citizen, # 90 tablet, 2 Refills,Maintenance, 10/07/22 8:45:00 EDT, [id number], Discontinue Tizanidine, 160.02, cm, 03/17/238:16:00 EDT, Height Start Date: 10/07/22 Status: Ordered escitalopram 20 mg oral tablet 0 Refills, Maintenance, 10/17/18 8:58:12 EDT Start Date: 10/17/18 Status: Ordered ferrous sulfate 325 mg oral enteric coated tablet 325 mg, 1, tablet, By Mouth, Daily, with food for anemia label in vatican citizen, # 30 tablet, Refills 2, Tot. Refills 2, Maintenance, 08/11/22 15:48:00 EST, Route to Pharmacy Electronically, [facility]/pharmacy #[id number], Partial fill upon patient request if the [...] at bedtime, for nerve pain label in vatican citizen, # 90 tablet, 1 Refills, Maintenance, 10/07/22 8:48:00 EDT, Tablet, [facility]/pharmacy #[id number], Partial fill upon patient request if [...] each, 11 Refills, Maintenance, 10/13/22 11:43:00 EDT, [facility], Partial fill upon patient request if [...] 2 hours if response unsatisfactory label in vatican citizen, # 12 tablet, 2 Refills, Soft Stop, 05/27/22 17:10:00 EDT, Tablet, [facility]/pharmacy #[id number], Partial fill upon patient... Start Date: 05/27/22 Status: Ordered metFORMIN 750 mg oral tablet, extended release 1 tablet = 750 mg, By Mouth, Daily, for diabetes with evening meal label in vatican citizen dosage adjustment, # 90 tablet, 1 Refills, Maintenance, 10/07/22 8:44:00 EDT, ER Tablet, [id number], Partial fill upon patient request if the prescription i... Start Date: 10/07/22 Status: Ordered Nebulizer/Compressor See Instructions, # 1 each, Maintenance, use as needed dx asthma, 06/06/17 17:41:21, Compound Start Date: 06/06/17 Status: Ordered pantoprazole 40 mg oral delayed release tablet See Instructions, GINO BONIFACIO TABLETA POR VIA ORAL TODOS [place], # 90 tablet, 0 Refills, Maintenance, 11/08/22 9:15:00 EDT, 160.02, cm, 10/14/22 11:16:00 EDT, Height Start Date: 11/08/22 Status: Ordered Pulse Ox Pulse Ox, See [...] scalp apply a thin film label in vatican citizen, # 60 mL, 1 Refills, Maintenance, 04/14/22 14:42:00 EDT, Lotion, [facility]/pharmacy #[id number], 1 application Topically 2 times a day,Instr:for itchy scalp; apply a thi... Start Date: 04/14/22 Status: Ordered visco heel cups visco heel cups, See Instructions, # 1 pair, Refills 0, Tot. Refills 0, Maintenance, v[place] citizen. wear daily in tennis shoes for plantar [...] Confirmed Active Obesity (BMI 30-39.9) Confirmed Active Depression Confirmed Active Nipple discharge in female Confirmed [...] Active Severe obesity Confirmed Active 08/01/95 - ANA MARÍA Santiago , 04/30/99 Yohan , 07/16/2000, Cesar , 02/22/04 Ciera Social History Social History Type Response Smoking Status Never (less than 100 in lifetime);Never entered on: 04/20/20 Sex Patient Care team information Care Team Personnel Name: Regina Worrell Position: S PCO Associate Professional Member Role: PCP Address: Address: [address] [place] [address]- Care Team Related Persons Name: SHARAD CHAVEZ Address: home [address] [address] Name: NIK PÉREZ Address: home [address] [place] [id number]
--- OUTSIDE RECORDS SUMMARY | 2023-08-09 10:39 | XMS_ITS | Continuity of Care Document ---
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 [place] Date(s): 06/30/21 - 07/30/21 [facility] Allergies, Adverse Reactions, Alerts Substance Reaction Severity Status NKA Active Immunizations Given and Recorded Vaccine Date Status Refusal Reason SARS-CoV-2 (COVID-19) mRNA BNT-162b2 vac 07/10/21 Given SARS-CoV-2 (COVID-19) Ad26 vaccine 12/16/20 Given influenza [...] mouth and throat after use label in mauritian, #60 each, 11 Refills, Maintenance, 12/05/19 11:01:00 EDT, [facility]erosol, [id number], 2 puffs Inhalation 2 times a day,Instr:for asthma; rinse mouth... Start Date: 12/05/19 Status: Ordered Aerochamber w/Mask (Large) See Instructions, # 1 each, Maintenance, dx asthma use as needed, 06/28/17 15:17:40, Compound Start Date: 06/28/17 Status: Ordered albuterol 0.083% inhalation solution 3 mL = 2.5 mg, Inhalation, Every 4 hours, PRN for wheezing, # 75 each, 4 Refills, Maintenance, 12/05/19 11:01:00 EDT, Solution, [facility]/pharmacy #[id number], 160.02, cm, 06/14/19 11:58:00 EST, Height, 107.2, kg, 06/14/19 11:02:00 EST, Dry Weight Start Date: 12/05/19 Status: Ordered albuterol CFC free 90 mcg/inh inhalation aerosol 2, puffs, Inhalation, 4 times a day, PRN, mauritian label, # 25 Gm, Refills 11, Tot. Refills 11, Maintenance, 12/05/19 11:01:00 EDT, Aerosol, Route to Pharmacy Electronically, [id number], [facility]/pharmacy #[id number], 160.02, cm, ... Start Date: [...] 11/13/20 13:57:00 EDT, Route to Pharmacy Electronically, [facility]/pharmacy #[id number], 160.02, cm, 11/13/20 13:37:00 EDT, Height, [...] Mouth, Daily, FOR ALLERGIES., # 30 tablet, 5 Refills, [id number], 160.02, cm, 01/27/21 17:35:00 EDT, Height, 113.18, kg, 04/20/20 14:58:00 EDT, Dry Weight Start Date: 05/26/21 Status: Ordered clonazePAM 1 mg oral tablet TOME BONIFACIO TABLETA DOS VECES AL D A CUANDO SEA NECESARIO Start Date: 12/05/19 Status: Ordered Compression Stockings See Instructions, # 1 pair, Maintenance, 15-20mmHg knee length wear daily dx varicose veins, 06/10/15 10:47:06, Compound Start Date: 06/10/15 Status: Ordered escitalopram 20 mg oral tablet 0 Refills, Maintenance, 10/17/18 8:58:12 EDT Start Date: 10/17/18 Status: Ordered fluticasone 50 mcg/inh nasal spray See Instructions, USE 2 SPRAYS IN EACH NOSTRIL IN THE MORNING FOR ALLERGIES, # 16 mL, 5 Refills, [id number] [id number], 30, USE 2 SPRAYS IN EACH NOSTRIL IN THE MORNING FOR ALLERGIES, 160.02, cm, 01/27/21 17:35:00 EDT, Height, 113.18, kg, 04/20/20 14:58:00 E... Start Date: 05/26/21 Status: Ordered Folding Front wheel Walker Folding [...] Daily, for swelling in legs label in mauritian, # 30 tablet, Refills 0, Tot. Refills 0, Maintenance, 10/29/20 17:53:00 EDT, Route to Pharmacy Electronically, [facility]/pharmacy #[id number], Partial fill upon patient request [...] EST, Supply Start Date: 09/29/20 Status: Ordered MetFORMIN (Eqv-Glucophage XR) 500 mg oral tablet, extended release See Instructions, TAKE 1 TABLET BY MOUTH EVERY EVENING WITH MEALS, # 30 tablet, 1 Refills, [facility] STORE [id number], 160.02, cm, 01/27/21 17:35:00 EDT, Height, 113.18, kg, 04/20/20 14:58:00 EDT, Dry Weight Start Date: 06/08/21 Status: Ordered montelukast 10 mg oral tablet See Instructions, GINO SOSAA TODOS [place], # 90 tablet, Refills 1, Instructions Replace Required Details, Route to Pharmacy Electronically, [facility] STORE [id number], 160.02, cm, 01/27/21 17:35:00 EDT,Height, 113.18, kg, 04/20/20 14:58:00 EDT, Dry Weight Start Date: 05/28/21 Status: Ordered nabumetone 750 mg oral tablet 1 tablet = 750 mg, By Mouth, 2 times a day, for pain with food label in mauritian, # 60 tablet, 3 Refills, Maintenance, 11/13/20 13:58:00 EDT, Tablet, [facility]/pharmacy #[id number], Partial fill upon patient request [...] 02/06/20 10:08:00 EDT, Route to Pharmacy Electronically, [facility]/pharmacy #[id number], 160.02, cm, 06/14/19 11:58:00 EST, Height, 107.2, kg, 06/14/19 11:02:00 EST, Dry Weight Start Date: 02/06/20 Stop Date: 01/31/21 Status: Ordered omeprazole 40 mg oral enteric coated capsule See Instructions, TOME BONIFACIO CAPSULA POR VIA ORAL TODOS [place], # 30 capsule, 11 Refills, 11/13/20 13:57:00 EDT, [facility]/pharmacy #[id number], 160.02, cm, 11/13/20 13:37:00 EDT, Height, [...] pair, Refills 0, Tot. Refills 0, Maintenance, mauritian. wear daily in tennis shoes for plantar [...] right(Confirmed) Active 08/01/95 - Pamela , 04/30/99 Yohan , 07/16/2000, Cesar , 02/22/04 Ciera Social History Social History Type Response Smoking Status Never (less than 100 in lifetime);Never entered on: 04/20/20 Sex
--- OUTSIDE RECORDS SUMMARY | 2023-08-09 10:39 | XMS_ITS | Continuity of Care Document ---
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 Name Role Phone Passer Regina MA Primary Care Physician [place] [facility](s[place] 09/11/19 - 11/13/19 [facility]/[address] [address]- [facility] Attending Physician: Not on Staff, Attending MD Admitting Physician: Chelsie Emanuel CNM Allergies, Adverse Reactions, Alerts Substance Reaction Severity Status NKA Active Immunizations Given and Recorded Vaccine Date Status Refusal Reason tetanus/diphtheria/pertussis, acel(Tdap) 10/17/18 Given pneumococcal 23-valent vaccine 10/17/18 Given influenza virus vaccine, inactivated 06/22/18 Give n influenza virus vaccine, inactivated 06/26/17 Give n influenza virus vaccine, inactivated 08/30/16 Give n influenza virus vaccine, inactivated 05/20/15 Give n Medications Advair HFA 115 mcg / 21 mcg 2 puffs, Inhalation, 2 times a day, for asthma rinse mouth and throat after use label in guatemalan, #60 each, 6 Refills, Maintenance, 10/17/18 8:50:36 EDT, Aerosol, 2 puffs Inhalation 2 times a day,Instr:for asthma; rinse mouth and throat after use;... Start Date: 10/17/18 Status: Ordered Aerochamber w/Mask (Large) See Instructions, # 1 each, Maintenance, dx asthma use as needed, 06/28/17 15:17:40, Compound Start Date: 06/28/17 Status: Ordered albuterol 0.083% inhalation solution 3 mL = 2.5 mg, Inhalation, Every 4 hours, PRN for wheezing, # 75 each, 1 Refills, Maintenance, 02/13/19 13:53:07 EDT, Solution Start Date: 02/13/19 Status: Ordered albuterol CFC free 90 mcg/inh inhalation aerosol 2, puffs, Inhalation, 4 times a day, PRN, guatemalan label, # 25 Gm, Refills 11, Tot. Refills 11, Maintenance, 10/17/18 8:52:13 EDT, Aerosol, Route to Pharmacy Electronically, [id number], [facility]/pharmacy #[id number], Compound Start Date: 10/17/18 Status: Ordered amitriptyline 25 mg oral tablet 25 mg, 1, tablet, By Mouth, Daily at bedtime, for FERRERA and Fibromyalgia label in guatemalan, # 90 tablet, Refills 0, Tot. Refills 0, Maintenance, 02/04/19 14:21:26 EDT, Route to Pharmacy Electronically, [id number], [facility] Start Date: 02/04/19 Status: Ordered baclofen 20 mg oral tablet 20 mg, 1, tablet, By Mouth, 2 times a day, for muscle tightness and FERRERA label in guatemalan, # 60 tablet, Refills 4, Tot. Refills 4, Maintenance, 10/17/18 8:52:12 EDT, Route to Pharmacy Electronically, [id number], [facility]/pharmacy #... Start Date: 10/17/18 Status: Ordered Blood Pressure Monitor See Instructions, [...] By Mouth, 2 times a day, for shoulder and knee pain label in guatem[place] labs needed, # 60 capsule, 0 Refills, Maintenance, 11/05/19 8:24:00 EDT, Capsule, [facility]/pharmacy #[id number], 160.02, cm, 06/14/19 11:58:00 EST, Height, 107.2, kg, 05/25... Start Date: 11/05/19 Status: Ordered cetirizine 10 mg oral tablet 1 tablet = 10 mg, By Mouth, Daily, for allergies guatemalan label, # 90 tablet, 0 Refills, Maintenance, 11/05/19 8:25:00 EDT, Tablet, [facility]/pharmacy #[id number], 160.02, cm, 06/14/19 11:58:00 EST, Height, 107.2, kg, 06/14/19 11:02:00 EST, Dry Weight Start Date: 11/05/19 Status: Ordered Compression Stockings See Instructions, # 1 pair, Maintenance, 15-20mmHg knee length wear daily dx varicose veins, 06/10/15 10:47:06, Compound Start Date: 06/10/15 Status: Ordered escitalopram 20 mg oral tablet 0 Refills, Maintenance, 10/17/18 8:58:12 EDT Start Date: 10/17/18 Status: Ordered Flonase 50 mcg/inh nasal spray 2 sprays, Nares, Both, Daily in AM, for allergies label in guatemalan, # 16 Gm, 11 Refills, Maintenance, 10/17/18 8:50:36 EDT, [place], 2 sprays Nares, Both Daily in AM,Instr:for allergies; label in guatemalan Start Date: 10/17/18 Status: Ordered ipratropium nasal 42 mcg/inh spray 2 sprays, Nares, Both, Daily at bedtime, MAC[place]ONIAN., # 1 each, 5 Refills, Maintenance, 01/22/18 11:32:47 EDT, 2 sprays Nares, Both Daily at bedtime,x30 days,Instr:MACEDONIAN. Start Date: 01/22/18 Stop Date: 07/21/18 Status: Ordered ketoconazole 2% topical shampoo 1 applicator, Topically, Every Monday, Monday and Monday, label in guatemalan, # 240 mL, 6 Refills,Soft Stop, 10/17/18 8:49:04 EDT, 1 applicator Topically Every Monday, Monday and Monday,Instr:label in guatemalan Start Date: 10/17/18 Status: Ordered knee brace knee brace, See [...] wash hands thoroughly after application label in guatemalan, # 50 Gm, 3 Refills, Maintenance, 10/17/18 8:56:11 EDT, 1 applicator Topically 3 times a day,Instr:for shoulder and knee pain... Start Date: 10/17/18 Status: Ordered Nebulizer/Compressor See Instructions, # 1 each, Maintenance, use as needed dx asthma, 06/06/17 17:41:21, Compound Start Date: 06/06/17 Status: Ordered norethindrone 5 mg oral tablet 10 mg, 2, tablet, By Mouth, Daily, # 60 tablet, Refills 8, Tot. Refills 8, Maintenance, 10/29/19 10:55:00 EDT, Route to Pharmacy Electronically, [facility]/pharmacy #[id number], 160.02, cm, 06/14/19 11:58:00 EST,Height, 107.2, kg, 06/14/19 11:02:00 EST, Dry Weight Start Date: 10/29/19 Stop Date: 07/25/20 Status: Ordered omeprazole 40 mg oral enteric coated capsule 1 capsule = 40 mg, By Mouth, Daily, for reflux label in guatemalan, # 90 capsule, 1 Refills, Maintenance, 10/17/18 8:49:03 EDT, EC Capsule Start Date: 10/17/18 Status: Ordered propranolol 80 mg oral capsule, extended release 80 mg, 1, capsule, By Mouth, Daily, # 30 capsule, Refills 0, Maintenance, 10/17/18 8:38:00 EDT Start Date: 10/17/18 Status: Ordered Singulair 10 mg oral tablet 10 mg, 1, tablet, By Mouth, Daily, for allergy and asthma label in guatemalan, # 90 tablet, Refills 0,Tot. Refills 0, Maintenance, 11/05/19 8:24:00 EDT, Route to Pharmacy Electronically, [facility]/pharmacy #[id number], 160.02, cm, 06/14/19 11:58:00 EST, Height, 10... Start Date: 11/05/19 Status: Ordered Splint See Instructions, # 2 [...] pair, Refills 0, Tot. Refills 0, Maintenance, guatemalan. wear daily in tennis shoes for plantar [...] Social History Type Response Smoking Status Never entered on: 12/13/18 Sex
--- OUTSIDE RECORDS SUMMARY | 2023-08-09 10:39 | XMS_ITS | Continuity of Care Document ---
Author Name Unknown Organization [facility] ter Address [address] [place] [id number]- Care Team Providers Care Paper Sorter Name Role Phone Passer Regina MA Primary Care Physician [place] [facility] [place] 07/[place]/23 [facility] [address] [place] [id number]- Attending Physician: Sara Zaldivar Admitting Physician: Sara Zaldivar Referring Physician: AdmtrSara Allergies, Adverse Reactions, Alerts No Known Allergies Immunizations Given and Recorded Vaccine Date Status Refusal Reason [id number] 12y+ bivalent booster vax 06/23/22 Given influenza virus vaccine, inactivated 05/27/22 Give n influenza virus vaccine, inactivated 05/28/20 Give n influenza virus vaccine, inactivated 06/22/18 Give n influenza virus vaccine, inactivated 06/26/17 Give n influenza virus vaccine, inactivated 08/30/16 Give n influenza virus vaccine, inactivated 05/20/15 Give n SARS-CoV-2 mRNA ([id number]) vax 11/02/21 Recorded SARS-CoV-2 (COVID-19) mRNA BNT-162b2 [...] wheezing, # 75 each, 6 Refills, Maintenance, 04/21/23 13:33:00 EDT, Solution, [facility]/pharmacy #[id number], 160.02, cm, 04/21/23 8:18:00 EDT, Height, 114.36, kg, 04/21/23 8:18:00 EDT, Dry Weight Start Date: 04/21/23 Status: Ordered albuterol CFC free 90 mcg/inh inhalation aerosol 2, puffs, Inhalation, 4 times a day, PRN, nigerien label, # 25 Gm, Refills 11, Tot. Refills 11, Maintenance, 04/21/23 13:33:00 EDT, Aerosol, Route to Pharmacy Electronically, [id number], [facility]/pharmacy #[id number], 160.02, cm, ... Start Date: 04/21/23 Status: Ordered Alcohol pads Alcohol pads, See Instructions, # 100 each, Refills 6, Tot. Refills 6, Maintenance, Dx: T2DM, checkBS 1-2 times daily, 08/11/22 15:47:00 EST, Supply, 160.02, cm, 08/09/22 10:52:00 EST, Height Start Date: 08/11/22 Status: Ordered amitriptyline 50 mg oral tablet 1 tablet = 50 mg, TOME BONIFACIO TABLETA TODOSelin LOS D AL ACOSTARSE Start Date: 02/10/23 Status: Ordered atorvastatin 20 mg oral tablet 1 tablet = 20 mg, By Mouth, Daily, for cholesterol label in nigerien, # 90 tablet, 1 Refills, Maintenance, 04/21/23 13:33:00 EDT, Tablet, [facility]/pharmacy #[id number], Partial fill upon patient request if the prescription is for a schedule II opioid drug., 160.... Start Date: 04/21/23 Status: Ordered Back seat cushion for Manual [...] 0 Refills, Maintenance, 07/20/22 15:16:00 EST, Capsule, [facility]/pharmacy #[id number], Partial fill upon patient request [...] FOR ALLERGIES., # 30 tablet, 11 Refills, 04/21/23 13:33:00 EDT, [facility]/pharmacy #[id number], 160.02, cm, 04/21/23 8:18:00 EDT, Height, 114.36, kg, 04/21/23 8:18:00 EDT, Dry Weight Start Date: 04/21/23 Status: Ordered cloNIDine 0.1 mg oral tablet 0.1 mg, 1, tablet, By Mouth, 2 times a day, # 60 tablet, Refills 5, Tot. Refills 5, Maintenance, 01/05/23 10:05:00 EDT, Route to Pharmacy Electronically, [facility]/pharmacy #[id number], Partial fill upon patientrequest if the [...] PAIN., # 90 tablet, 2 Refills, Maintenance, 04/21/23 13:33:00 EDT, [facility]/pharmacy #[id number], 160.02, cm, 04/21/23 8:18:00 EDT, Height, 114.36, kg, 04/21/23 8:18:00 EDT, Dry Weight Start Date: 04/21/23 Status: Ordered escitalopram 20 mg oral tablet 0 Refills, Maintenance, 10/17/18 8:58:12 EDT Start Date: 10/17/18 Status: Ordered ferrous sulfate 325 mg oral enteric coated tablet 325 mg, 1, tablet, By Mouth, Daily, with food for anemia label in nigerien, # 30 tablet, Refills 2, Tot. Refills 2, Maintenance, 08/11/22 15:48:00 EST, Route to Pharmacy Electronically, [facility]/pharmacy #[id number], Partial fill upon patient request if the pres... Start Date: 08/11/22 Status: Ordered Flovent HFA 110 mcg/inh inhalation aerosol 2 puffs, Inhalation, 2 times a day, for asthma control. rinse mouth and throat after use lable in nigerien, # 12 Gm, 11 Refills, Maintenance, 04/21/23 13:34:00 EDT, Aerosol, [facility]/pharmacy #[id number], Partial fill upon patient request if the prescription i... Start Date: 04/21/23 Status: Ordered Folding Front wheel Walker Folding [...] at bedtime, for nerve pain label in nigerien, # 90 tablet, 1 Refills, Maintenance, 04/21/23 13:33:00 EDT, Tablet, [facility]/pharmacy #[id number], Partial fill upon patient request if the prescription is for a schedule II opioid... Start Date: 04/21/23 Status: Ordered knee brace knee brace, See [...] each, 11 Refills, Maintenance, 10/13/22 11:43:00 EDT, [facility], Partial fill upon patient request if [...] 2 hours if response unsatisfactory label in nigerien, # 12 tablet, 2 Refills, Soft Stop, 04/21/23 13:33:00 EDT, Tablet, [facility]/pharmacy #[id number], Partial fill upon patient... Start Date: 04/21/23 Status: Ordered metFORMIN 500 mg oral tablet, extended release 2 tablet = 1,000 mg, By Mouth, 2 times a day, for blood sugar dosage adjustment label in nigerien, #360 tablet, 0 Refills, Maintenance, 05/09/23 22:48:00 EDT, ER Tablet, [facility]/pharmacy #[id number], Partial fill upon patient request if the prescription is fo... Start Date: 05/09/23 Status: Ordered nabumetone 750 mg oral tablet 1 tablet = 750 mg, By Mouth, 2 times a day, # 28 tablet, 0 Refills, Maintenance, 02/23/23 18:16:00 EDT, Tablet, [facility]/pharmacy #[id number], Partial fill upon patient request if the prescription is for a schedule II opioid drug., 160.02, cm, 01/05/23 10:47:00... Start Date: 02/23/23 Stop Date: 03/09/23 Status: Ordered Nebulizer/Compressor See Instructions, # 1 each, Maintenance, use as needed dx asthma, 06/06/17 17:41:21, Compound Start Date: 06/06/17 Status: Ordered pantoprazole 40 mg oral delayed release tablet See Instructions, GINO FELIPE TODOS [place], # 90 tablet, 1 Refills, Maintenance, 04/21/23 13:33:00 EDT, 160.02, cm, 04/21/23 8:18:00 EDT, Height, 114.36, kg, 04/21/23 8:18:00 EDT, Dry Weight Start Date: 04/21/23 Status: Ordered Pulse Ox Pulse Ox, See [...] scalp apply a thin film label in nigerien, # 60 mL, 1 Refills, Maintenance, 04/14/22 14:42:00 EDT, Lotion, [id number], 1 application Topically 2 times a day,Instr:for itchy scalp; apply a thi... Start Date: 04/14/22 Status: Ordered visco heel cups visco heel cups, See Instructions, # 1 pair, Refills 0, Tot. Refills 0, Maintenance, nigerien. wear daily in tennis shoes for plantar [...] 06/09/16 Active Breast pain, right Confirmed Active MDD (major depressive disorder), recurrent, in partial remission Confirmed Active Severe obesity Confirmed Active 08/01/95 - ANA MARÍA Santiago , 04/30/99 Yohan , 07/16/2000, Cesar , 02/22/04 Ciera Social History Social History Type Response Smoking Status Never (less than 100 in lifetime);Never entered on: 04/20/20 Sex Patient Care team information Care Team Personnel Name: Regina Worrell Position: [facility] PCO Associate Professional Member Role: PCP Address: Address: [address] [place] [address]- Care Team Related Persons Name: SHARAD CHAVEZ Address: home [address] [address] Name: NIK PÉREZ Address: home [address] [address]
--- OUTSIDE RECORDS SUMMARY | 2023-08-09 10:39 | XMS_ITS | Continuity of Care Document ---
Author Name Unknown Organization [facility] ter Address [address] [place] [address]- Care Team Providers Care Vp Lab Name Role Phone Regina Worrell Primary Care Physician Encounter [facility] [place] Date(s): 07/08/22 - 08/20/22 [facility] [address] [place] [id number]- Attending Physician: Jarad Odell MD Admitting Physician: Jarad Odell MD Referring Physician: Regina Worrell Allergies, Adverse Reactions, Alerts No Known Allergies Immunizations Given and Recorded Vaccine Date Status Refusal Reason [id number] 12y+ bivalent booster vax 06/23/22 Given influenza virus vaccine, inactivated 05/27/22 Give n influenza virus vaccine, inactivated 05/28/20 Give n influenza virus vaccine, inactivated 06/22/18 Give n influenza virus vaccine, inactivated 06/26/17 Give n influenza virus vaccine, inactivated 08/30/16 Give n influenza virus vaccine, inactivated 05/20/15 Give n SARS-CoV-2 mRNA ([id number]) vax 11/02/21 Recorded SARS-CoV-2 (COVID-19) mRNA BNT-162b2 vac 07/10/21 Given SARS-CoV-2 (COVID-19) Ad26 vaccine 12/16/20 Given tetanus/diphtheria/pertussis, acel(Tdap) 10/17/18 Given pneumococcal 23-valent vaccine 10/17/18 Given Medications Aerochamber w/Mask (Large) See Instructions, # 1 each, Maintenance, dx asthma use as needed, 06/28/17 15:17:40, Compound Start Date: 12/6/17 Status: Ordered albuterol 0.083% inhalation solution 3 mL = 2.5 mg, Inhalation, Every 4 hours, PRN for wheezing, # 75 each, 6 Refills, Maintenance, 01/11/22 11:04:00 EDT, Solution, [facility]/pharmacy #[id number], 160.02, cm, 11/10/21 8:41:00 EDT, Height, 113.18, kg, 04/20/20 14:58:00 EDT, Dry Weight Start Date: 01/11/22 Status: Ordered albuterol CFC free 90 mcg/inh inhalation aerosol 2, puffs, Inhalation, 4 times a day, PRN, estonian label, # 25 Gm, Refills 11, Tot. Refills 11, Maintenance, 12/23/21 12:20:00 EDT, Aerosol, Route to Pharmacy Electronically, [id number], [facility]/pharmacy #[id number], 160.02, cm, ... Start Date: 12/23/21 Status: Ordered Alcohol pads Alcohol pads, See Instructions, # 100 each, Refills 6, Tot. Refills 6, Maintenance, Dx: T2DM, checkBS 1-2 times daily, 08/11/22 15:47:00 EST, Supply, 160.02, cm, 08/09/22 10:52:00 EST, Height Start Date: 08/11/22 Status: Ordered Back seat cushion for Manual [...] 0 Refills, Maintenance, 07/20/22 15:16:00 EST, Capsule, [facility]/pharmacy #[id number], Partial fill upon patient request [...] 30 tablet, 11 Refills, 04/14/22 14:32:00 EDT, [facility]/pharmacy #[id number], 160.02, cm, 04/14/22 14:24:00 EDT, Height, [...] Daily, with food for anemia label in estonian, # 30 tablet, Refills 2, Tot. Refills 2, Maintenance, 08/11/22 15:48:00 EST, Route to Pharmacy Electronically, [facility]/pharmacy #[id number], Partial fill upon patient request [...] opioid drug. Start Date: 09/28/20 Status: Ordered knee brace knee brace, See [...] 2 hours if response unsatisfactory label in estonian, # 12 tablet, 2 Refills, Soft Stop, 05/27/22 17:10:00 EDT, Tablet, [facility]/pharmacy #[id number], Partial fill upon patient... Start Date: 05/27/22 Status: Ordered metFORMIN 500 mg oral tablet, extended release 1 tablet = 500 mg, By Mouth, Daily, for Diabetes with evening meal label in estonian, # 30 tablet, 2Refills, Maintenance, 08/11/22 15:47:00 EST, ER Tablet, [facility]/pharmacy #[id number], Partial fill upon patient request if the prescription is for a schedule I... Start Date: 08/11/22 Status: Ordered nabumetone 750 mg oral tablet 1 tablet = 750 mg, By Mouth, 2 times a day, for pain with food label in estonian, # 60 tablet, 6 Refills, Maintenance, 05/27/22 17:09:00 EDT, Tablet, [facility]/pharmacy #[id number], Partial fill upon patient request if the prescription is for a schedule II opioi... Start Date: 05/27/22 Status: Ordered Nebulizer/Compressor See Instructions, # 1 each, Maintenance, use as needed dx asthma, 06/06/17 17:41:21, Compound Start Date: 06/06/17 Status: Ordered pantoprazole 40 mg oral delayed release tablet See Instructions, GINO BONIFACIO TABLETA POR VIA ORAL TODOS [place], # 30 tablet, 2 Refills, Maintenance, 06/27/22 10:16:00 EST, 160.02, cm, 05/27/22 17:15:00 EDT, Height Start Date: 06/27/22 Status: Ordered Pulse Ox Pulse Ox, See [...] 9:55:57, Compound Start Date: 04/21/15 Status: Ordered tiZANidine 4 mg oral capsule See Instructions, TOME 1 CAPSULA POR VIA ORAL JHON VECES AL SHAREE PARA MUSCLE PAIN, # 90 capsule, 1 Refills, Maintenance, 06/27/22 10:16:00 EST, [id number], 160.02, cm, 05/27/22 17:15:00 EDT, Height Start Date: 06/27/22 Status: Ordered traZODone 100 mg oral tablet 100 mg, 1, tablet, By Mouth, 2 times a day, # 180 tablet, Refills 0, Maintenance, 10/17/18 8:38:05 EDT Start Date: 10/17/18 Status: Ordered triamcinolone 0.025% topical lotion 1 application, Topically, 2 times a day, for itchy scalp apply a thin film label in estonian, # 60 mL, 1 Refills, Maintenance, 04/14/22 14:42:00 EDT, Lotion, [facility]/pharmacy #[id number], 1 application Topically 2 times a day,Instr:for itchy scalp; apply a thi... Start Date: 04/14/22 Status: Ordered visco heel cups visco heel cups, See Instructions, # 1 pair, Refills 0, Tot. Refills 0, Maintenance, estonian. wear daily in tennis shoes for plantar [...] right Confirmed Active Severe obesity Confirmed Active 18/6/95 - Pamela , 04/30/99 Yohan , 07/16/2000, Cesar , 02/22/04 Ciera Social History Social History Type Response Smoking Status Never (less than 100 in lifetime);Never entered on: 04/20/20 Sex Patient Care team information Care Team Personnel Name: Regina Worrell Position: [facility] PCO Associate Professional Member Role: PCP Address: Address: [address] [place] [address] Care Team Related Persons Name: PAMELA CHAVEZ Address: home [address] [address] Name: NIK PÉREZ Address: home [address] [place] [address]
--- OUTSIDE RECORDS SUMMARY | 2023-08-09 10:39 | XMS_ITS | Continuity of Care Document ---
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 Refills 11, Maintenance, 10/17/18 8:52:13 EDT, Aerosol, Route to Pharmacy Electronically, [id number], [facility]/pharmacy #[id number], Compound Start Date: 10/17/18 Status: Ordered amitriptyline 25 mg oral tablet 25 mg, 1, tablet, By Mouth, Daily at bedtime, for FERRERA and Fibromyalgia label in emirati, # 90 tablet, Refills 0, Tot. Refills 0, Maintenance, 02/04/19 14:21:26 EDT, Route to Pharmacy Electronically, [id number], [facility]/pharmacy #... Start Date: 02/04/19 Status: Ordered baclofen 20 mg oral tablet 20 mg, 1, tablet, By Mouth, 2 times a day, for muscle tightness and FERRERA label in emirati, # 60 tablet, Refills 4, Tot. Refills 4, Maintenance, 10/17/18 8:52:12 EDT, Route to Pharmacy Electronically, [id number], [facility]/pharmacy #... Start Date: 10/17/18 Status: Ordered Blood [...] for shoulder and knee pain label in emirati, # 60 capsule, 5 Refills, Maintenance, 10/17/18 8:54:59 EDT, Capsule Start Date: 10/17/18 Status: Ordered cetirizine 10 mg oral tablet 1 tablet = 10 mg, By Mouth, Daily, for allergies emirati label, # 90 tablet, 3 Refills, Maintenance, 10/17/18 8:49:04 EDT, Tablet Start Date: 10/17/18 Status: Ordered Compression Stockings See Instructions, # 1 pair, Maintenance, 15-20mmHg knee length wear daily dx varicose veins, 06/10/15 10:47:06, Compound Start Date: 06/10/15 Status: Ordered escitalopram 20 mg oral tablet 0 Refills, Maintenance, 10/17/18 8:58:12 EDT Start Date: 10/17/18 Status: Ordered Flonase 50 mcg/inh nasal spray 2 sprays, Nares, Both, Daily in AM, for allergies label in emirati, # 16 Gm, 11 Refills, Maintenance, 10/17/18 8:50:36 EDT, [place], 2 sprays Nares, Both Daily in AM,Instr:for allergies; label in emirati Start Date: 10/17/18 Status: Ordered ipratropium nasal 42 mcg/inh spray 2 sprays, Nares, Both, Daily at bedtime, UPPER SORBIAN., # 1 each, 5 Refills, Maintenance, 01/22/18 11:32:47 EDT, 2 sprays Nares, Both Daily at bedtime,x30 days,Instr:UPPER SORBIAN. Start Date: 01/22/18 Stop Date: 07/21/18 Status: Ordered ketoconazole 2% topical shampoo 1 applicator, Topically, Every Monday, Monday and Monday, label in emirati, # 240 mL, 6 Refills,Soft Stop, 10/17/18 8:49:04 EDT, 1 applicator Topically Every Monday, Monday and Monday,Instr:label in emirati Start Date: 10/17/18 Status: Ordered knee brace [...] wash hands thoroughly after application label in emirati, # 50 Gm, 3 Refills, Maintenance, 10/17/18 8:56:11 EDT, 1 applicator Topically 3 times a day,Instr:for shoulder and knee pain... Start Date: 10/17/18 Status: Ordered Nebulizer/Compressor See Instructions, # 1 each, Maintenance, use as needed dx asthma, 06/06/17 17:41:21, Compound Start Date: 06/06/17 Status: Ordered omeprazole 40 mg oral enteric coated capsule 1 capsule = 40 mg, By Mouth, Daily, for reflux label in emirati, # 90 capsule, 1 Refills, Maintenance, 10/17/18 8:49:03 EDT, EC Capsule Start Date: 10/17/18 Status: Ordered propranolol 80 mg oral capsule, extended release 80 mg, 1, capsule, By Mouth, Daily, # 30 capsule, Refills 0, Maintenance, 10/17/18 8:38:00 EDT Start Date: 10/17/18 Status: Ordered Singulair 10 mg oral tablet 10 mg, 1, tablet, By Mouth, Daily, for allergy and asthma label in emirati, # 90 tablet, Refills 1,Tot. Refills 1, Maintenance, 10/17/18 8:50:35 EDT, Route to Pharmacy Electronically, [id number], [facility]/pharmacy #[id number] Start Date: 10/17/18 Status: Ordered Splint See Instructions, # 2 [...] pair, Refills 0, Tot. Refills 0, Maintenance, emirati. wear daily in tennis shoes for plantar [...] MARÍA Almanzar , 07/16/2000, Cesar , 02/22/04 David Vang Social History Social History Type Response Smoking Status Never entered on: 12/13/18 Sex
--- OUTSIDE RECORDS SUMMARY | 2023-08-09 10:39 | XMS_ITS | Continuity of Care Document ---
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 Start Date: 12/05/19 Status: Ordered Aerochamber w/Mask (Large) See Instructions, # 1 each, Maintenance, dx asthma use as needed, 06/28/17 15:17:40, Compound Start Date: 06/28/17 Status: Ordered albuterol 0.083% inhalation solution 3 mL = 2.5 mg, Inhalation, Every 4 hours, PRN for wheezing, # 75 each, 4 Refills, Maintenance, 12/05/19 11:01:00 EDT, Solution, [facility]/pharmacy #[id number], 160.02, cm, 06/14/19 11:58:00 EST, Height, 107.2, kg, 06/14/19 11:02:00 EST, Dry Weight Start Date: 12/05/19 Status: Ordered albuterol CFC free 90 mcg/inh inhalation aerosol 2, puffs, Inhalation, 4 times a day, PRN, yemeni label, # 25 Gm, Refills 11, Tot. Refills 11, Maintenance, 12/05/19 11:01:00 EDT, Aerosol, Route to Pharmacy Electronically, [id number], [facility]/pharmacy #[id number], 160.02, cm, ... Start Date: 12/05/19 Status: Ordered amitriptyline 25 mg oral tablet 25 mg, 1, tablet, By Mouth, Daily at bedtime, for FERRERA and Fibromyalgia label in yemeni, # 90 tablet, Refills 0, Tot. Refills 0, Maintenance, 02/04/19 14:21:26 EDT, Route to Pharmacy Electronically, [id number], [facility]/pharmacy #... Start Date: 02/04/19 Status: Ordered baclofen 20 mg oral tablet 20 mg, 1, tablet, By Mouth, 2 times a day, for muscle pain label in yemeni, # 60 tablet, Refills 2, Tot. Refills 2, Maintenance, 05/28/20 11:58:00 EST, Route to Pharmacy Electronically, [facility]/pharmacy#[id number], 160.02, cm, 05/28/20 11:02:00 EST, Height,... Start [...] and joint pains with food label in yemeni, #60 capsule, 2 Refills, Maintenance, 05/28/20 11:58:00 EST, Capsule, [facility]/pharmacy #[id number], 160.02, cm,05/28/20 11:02:00 EST, Height, 113.18, kg, ... Start Date: 05/28/20 Status: Ordered cetirizine 10 mg oral tablet 1 tablet = 10 mg, By Mouth, Daily, for allergies yemeni label, # 90 tablet, 1 Refills, Maintenance, 03/23/20 9:46:00 EDT, Tablet, [facility]/pharmacy #[id number], 160.02, cm, 06/14/19 11:58:00 EST, [...] Daily in AM, for allergies label in yemeni, # 16 Gm, 11 Refills, Maintenance, 12/05/19 11:01:00 EDT, [place], [facility]/pharmacy #[id number], 2 sprays Nares, Both Daily in AM,Instr:for allergies; label in yemeni, 160.02, cm, 06/14/19 11:58... Start Date: 12/05/19 Status: Ordered ipratropium nasal 42 mcg/inh spray 2 sprays, Nares, Both, Daily at bedtime, BOTSWANAN., # 1 each, 5 Refills, Maintenance, 01/22/18 11:32:47 EDT, 2 sprays Nares, Both Daily at bedtime,x30 days,Instr:BOTSWANAN. Start Date: 01/22/18 Stop Date: 07/21/18 Status: Ordered ketoconazole 1% topical shampoo See Instructions, wash hair with 2-3 times per week label in yemeni, # 125 mL, 6 Refills, Maintenance, 05/28/20 11:59:00 EST, [facility]/pharmacy #[id number], wash hair with 2-3 times per week; label in yemeni,160.02, cm, 05/28/20 11:02:00 EST, Height, 113.18,... Start [...] wash hands thoroughly after application label in yemeni, # 50 Gm, 3 Refills, Maintenance, 10/17/18 [...] 02/06/20 10:08:00 EDT, Route to Pharmacy Electronically, [facility]/pharmacy #[id number], 160.02, cm, 06/14/19 11:58:00 EST, Height, 107.2, kg, 06/14/19 11:02:00 EST, Dry Weight Start Date: 02/06/20 Stop Date: 01/31/21 Status: Ordered omeprazole 40 mg oral enteric coated capsule See Instructions, TOME BONIFACIO CAPSULA POR VIA ORAL TODOS [place], # 30 capsule, 3 Refills, Maintenance, [id number], 160.02, cm, 06/14/19 11:58:00 EST, Height, 107.2, kg, 06/14/19 11:02:00 EST, DryWeight Start Date: 11/18/19 Status: Ordered pregabalin 100 mg oral capsule [...] Daily, for allergy and asthma label in yemeni, # 90 tablet, Refills 3,Tot. Refills 3, Maintenance, 12/05/19 11:01:00 EDT, Route to Pharmacy Electronically, [facility]/pharmacy #[id number], 160.02, cm, 06/14/19 11:58:00 EST, [...] thin film to affected area label in yemeni, # 60 Gm, 1 Refills, Maintenance, 05/28/20 11:59:00 EST, Cream, [facility]/pharmacy #[id number], 1 application Topically 3 times a day,Instr:apply a thin film; to affect... Start Date: 05/28/20 Status: Ordered triamcinolone 0.025% topical lotion 1 application, Topically, 2 times a day, for itchy scalp apply a thin film label in yemeni, # 60 mL, 1 Refills, Maintenance, 12/05/19 11:03:00 EDT, Lotion, [facility]/pharmacy #[id number], 1 application Topically 2 times a day,Instr:for itchy scalp; apply a thi... Start Date: 12/05/19 Status: Ordered visco heel cups visco heel cups, See Instructions, # 1 pair, Refills 0, Tot. Refills 0, Maintenance, yemeni. wear daily in tennis shoes for plantar [...] 04/30/99 Yohan , 07/16/2000, Cesar , 02/22/04 Iscindy Social History Social History Type Response Smoking Status Never (less than 100 in lifetime);Never entered on: 04/20/20 Sex
--- OUTSIDE RECORDS SUMMARY | 2023-08-09 10:40 | XMS_ITS | Continuity of Care Document ---
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 Name Role Phone Passer Regina MA Primary Care Physician En[place] [facility] [place] [facility] [place](s): 05/23/23 - 07/07/23 [facility] [address] [place] [id number]- Attending Physician: Aleksey Vann MD Admitting Physician: Aleksey Vann MD Referring Physician: Aleksey Vann MD Allergies, Adverse Reactions, Alerts No Known Allergies Immunizations Given and Recorded Vaccine Date Status Refusal Reason [id number] 12y+ bivalent booster vax 06/23/22 Given influenza virus vaccine, inactivated 05/27/22 Give n influenza virus vaccine, inactivated 05/28/20 Give n influenza virus vaccine, inactivated 06/22/18 Give n influenza virus vaccine, inactivated 06/26/17 Give n influenza virus vaccine, inactivated 08/30/16 Give n influenza virus vaccine, inactivated 05/20/15 Give n SARS-CoV-2 mRNA ([id number]-[id number]-[id number]) vax 11/02/21 Recorded SARS-CoV-2 (COVID-19) mRNA BNT-162b2 [...] 6 Refills, Maintenance, 04/21/23 13:33:00 EDT, Solution, [facility]/pharmacy #[id number], 160.02, cm, 04/21/23 8:18:00 EDT, Height, 114.36, kg, 04/21/23 8:18:00 EDT, Dry Weight Start Date: 04/21/23 Status: Ordered albuterol CFC free 90 mcg/inh inhalation aerosol 2, puffs, Inhalation, 4 times a day, PRN, palauan label, # 25 Gm, Refills 11, Tot. Refills 11, Maintenance, 04/21/23 13:33:00 EDT, Aerosol, Route to Pharmacy Electronically, [id number], [facility]/pharmacy #[id number], 160.02, cm, 2... Start Date: 04/21/23 Status: Ordered Alcohol pads Alcohol pads, See Instructions, # 100 each, Refills 6, Tot. Refills 6, Maintenance, Dx: T2DM, checkBS 1-2 times daily, 08/11/22 15:47:00 EST, Supply, 160.02, cm, 08/09/22 10:52:00 EST, Height Start Date: 08/11/22 Status: Ordered amitriptyline 50 mg oral tablet 1 tablet = 50 mg, TOME BONIFACIO TABLETA TODOS LOS D AL ACOSTARSE Start Date: 02/10/23 Status: Ordered atorvastatin 20 mg oral tablet 1 tablet = 20 mg, By Mouth, Daily, for cholesterol label in palauan, # 90 tablet, 1 Refills, Maintenance, 04/21/23 13:33:00 EDT, Tablet, [facility]/pharmacy #[id number], Partial fill upon patient request if the prescription is for a schedule II opioid drug., 160.... Start Date: 04/21/23 Status: Ordered Back seat cushion for Manual wheel chair Back seat cushion for Manual wheel chair, See Instructions, # 1 each, Refills 0, Tot. Refills 0, Maintenance, Dx:Critical illness Myopathy, 09/29/20 14:26:00 EST, Supply Start Date: 3/9/21 Status: Ordered benzonatate 100 mg oral capsule 2 capsule = 200 mg, By Mouth, 3 times a day, PRN as needed for cough, # 30 capsule, 0 Refills, Maintenance, 07/20/22 15:16:00 EST, Capsule, [facility]/pharmacy #[id number], Partial fill upon patient [...] 30 tablet, 11 Refills, 04/21/23 13:33:00 EDT, [facility]/pharmacy #[id number], 160.02, cm, 04/21/23 8:18:00 EDT, Height, 114.36, kg, 04/21/23 8:18:00 EDT, Dry Weight Start Date: 04/21/23 Status: Ordered cloNIDine 0.1 mg oral tablet 0.1 mg, 1, tablet, By Mouth, 2 times a day, # 60 tablet, Refills 5, Tot. Refills 5, Maintenance, 01/05/23 10:05:00 EDT, Route to Pharmacy Electronically, [facility]/pharmacy #[id number], Partial fill upon patientrequest if the [...] tablet, 2 Refills, Maintenance, 04/21/23 13:33:00 EDT, [facility]/pharmacy #[id number], 160.02, cm, 04/21/23 8:18:00 EDT, Height, 114.36, kg, 04/21/23 8:18:00 EDT, Dry Weight Start Date: 04/21/23 Status: Ordered escitalopram 20 mg oral tablet 0 Refills, Maintenance, 10/17/18 8:58:12 EDT Start Date: 10/17/18 Status: Ordered ferrous sulfate 325 mg oral enteric coated tablet 325 mg, 1, tablet, By Mouth, Daily, with food for anemia label in palauan, # 30 tablet, Refills 2, Tot. Refills 2, Maintenance, 08/11/22 15:48:00 EST, Route to Pharmacy Electronically, [facility]/pharmacy #[id number], Partial fill upon patient request if the pres... Start Date: 08/11/22 Status: Ordered Flovent HFA 110 mcg/inh inhalation aerosol 2 puffs, Inhalation, 2 times a day, for asthma control. rinse mouth and throat after use lable in palauan, # 12 Gm, 11 Refills, Maintenance, 04/21/23 13:34:00 EDT, Aerosol, [facility]/pharmacy #[id number], Partial fill upon patient [...] at bedtime, for nerve pain label in palauan, # 90 tablet, 1 Refills, Maintenance, 04/21/23 13:33:00 EDT, Tablet, [facility]/pharmacy #[id number], Partial fill upon patient request if the [...] each, 11 Refills, Maintenance, 10/13/22 11:43:00 EDT, [facility], Partial fill upon patient request [...] 2 hours if response unsatisfactory label in palauan, # 12 tablet, 2 Refills, Soft Stop, 04/21/23 13:33:00 EDT, Tablet, [facility]/pharmacy #[id number], Partial fill upon patient... Start Date: 04/21/23 Status: Ordered metFORMIN 500 mg oral tablet, extended release 2 tablet = 1,000 mg, By Mouth, 2 times a day, for blood sugar dosage adjustment label in palauan, #360 tablet, 0 Refills, Maintenance, 05/09/23 22:48:00 EDT, ER Tablet, [facility]/pharmacy #[id number], Partial fill upon patient request if the prescription is fo... Start Date: 05/09/23 Status: Ordered nabumetone 750 mg oral tablet 1 tablet = 750 mg, By Mouth, 2 times a day, # 28 tablet, 0 Refills, Maintenance, 02/23/23 18:16:00 EDT, Tablet, [facility]/pharmacy #[id number], Partial fill upon patient [...] scalp apply a thin film label in palauan, # 60 mL, 1 Refills, Maintenance, 04/14/22 14:42:00 EDT, Lotion, [facility]/pharmacy #[id number], 1 application Topically 2 times a day,Instr:for itchy scalp; apply a thi... Start Date: 04/14/22 Status: Ordered visco heel cups visco heel cups, See Instructions, # 1 pair, Refills 0, Tot. Refills 0, Maintenance, palauan. wear daily in tennis shoes for plantar [...] Care Team Personnel Name: Regina Worrell Position: [facility] PCO Associate Professional Member Role: PCP Address: Address: [address] [place] [address]- Care Team Related Persons Name: PAMELA CHAVEZ Address: home [address] [address] Name: NIK PÉREZ Address: home [address] [address]
--- OUTSIDE RECORDS SUMMARY | 2023-08-09 10:40 | XMS_ITS | Continuity of Care Document ---
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 Name Role Phone Passer Regina MA Primary Care Physician Encounter [facility] Date(s): 06/30/20 - 07/30/20 [facility] [address] [place] [id number]- Attending Physician: Admdotty, Leonard8 Admitting Physician: AdmtrSara Referring Physician: Admtr, Ar8 [...] mouth and throat after use label in pakistani, #60 each, 11 Refills, Maintenance, 12/05/19 11:01:00 EDT, Aerosol, [id number], 2 puffs Inhalation 2 times a day,Instr:for [...] Refills, Maintenance, 12/05/19 11:01:00 EDT, Solution, [facility]/pharmacy #[id number], 160.02, cm, 06/14/19 11:58:00 EST, Height, 107.2, kg, 06/14/19 11:02:00 EST, Dry Weight Start Date: 12/05/19 Status: Ordered albuterol CFC free 90 mcg/inh inhalation aerosol 2, puffs, Inhalation, 4 times a day, PRN, pakistani label, # 25 Gm, Refills 11, Tot. Refills 11, Maintenance, 12/05/19 11:01:00 EDT, Aerosol, Route to Pharmacy Electronically, [id number], [facility]/pharmacy #[id number], 160.02, cm, ... Start Date: 12/05/19 Status: Ordered amitriptyline 25 mg oral tablet 25 mg, 1, tablet, By Mouth, Daily at bedtime, for FERRERA and Fibromyalgia label in pakistani, # 90 tablet, Refills 0, Tot. Refills 0, Maintenance, 02/04/19 14:21:26 EDT, Route to Pharmacy Electronically, [id number], [facility]/pharmacy #... Start Date: 02/04/19 Status: Ordered baclofen 20 mg oral tablet 20 mg, 1, tablet, By Mouth, 2 times a day, for muscle pain label in pakistani, # 60 tablet, Refills 2, Tot. Refills 2, Maintenance, 05/28/20 11:58:00 EST, Route to Pharmacy Electronically, [facility]/pharmacy#[id number], 160.02, cm, 05/28/20 11:02:00 EST, Height,... [...] and joint pains with food label in pakistani, #60 capsule, 2 Refills, Maintenance, 05/28/20 11:58:00 EST, Capsule, [id number], 160.02, cm,05/28/20 11:02:00 EST, Height, 113.18, kg, 04/20/... Start Date: 05/28/20 Status: Ordered cetirizine 10 mg oral tablet 1 tablet = 10 mg, By Mouth, Daily, for allergies pakistani label, # 90 tablet, 1 Refills, Maintenance, [...] Daily in AM, for allergies label in pakistani, # 16 Gm, 11 Refills, Maintenance, 12/05/19 11:01:00 EDT, [place], [id number], 2 sprays Nares, Both Daily in AM,Instr:for allergies; label in pakistani, 160.02, cm, 06/14/19 11:58... Start Date: 12/05/19 Status: Ordered ipratropium nasal 42 mcg/inh spray 2 sprays, Nares, Both, Daily at bedtime, ANGUILLAN., # 1 each, 5 Refills, Maintenance, 01/22/18 11:32:47 EDT, 2 sprays Nares, Both Daily at bedtime,x30 days,Instr:ANGUILLAN. Start Date: 01/22/18 Stop Date: 07/21/18 Status: Ordered ketoconazole 1% topical shampoo See Instructions, wash hair with 2-3 times per week label in pakistani, # 125 mL, 6 Refills, Maintenance, 05/28/20 11:59:00 EST, [facility]/pharmacy #[id number], wash hair with 2-3 times per week; label in pakistani,160.02, cm, 05/28/20 11:02:00 EST, Height, 113.18,... Start [...] wash hands thoroughly after application label in pakistani, # 50 Gm, 3 Refills, Maintenance, 10/17/18 [...] 10:08:00 EDT, Route to Pharmacy Electronically, [facility]/pharmacy #[id number], 160.02, cm, 06/14/19 11:58:00 EST, Height, 107.2, kg, 06/14/19 11:02:00 EST, Dry Weight Start Date: 02/06/20 Stop Date: 01/31/21 Status: Ordered omeprazole 40 mg oral enteric coated capsule See Instructions, TOME BONIFACIO CAPSULA POR VIA ORAL TODOS [place], # 30 capsule, 3 Refills, Maintenance, [facility] STORE [id number], 160.02, cm, 05/28/20 11:02:00 EST, Height, 113.18, [...] Daily, for allergy and asthma label in pakistani, # 90 tablet, Refills 3,Tot. Refills 3, Maintenance, 12/05/19 11:01:00 EDT, Route to Pharmacy Electronically, [facility]/pharmacy #[id number], 160.02, cm, 06/14/19 11:58:00 EST, [...] thin film to affected area label in pakistani, # 60 Gm, 1 Refills, Maintenance, 05/28/20 11:59:00 EST, Cream, [facility]/pharmacy #[id number], 1 application Topically 3 times a day,Instr:apply a thin film; to affect... Start Date: 05/28/20 Status: Ordered triamcinolone 0.025% topical lotion 1 application, Topically, 2 times a day, for itchy scalp apply a thin film label in pakistani, # 60 mL, 1 Refills, Maintenance, 12/05/19 11:03:00 EDT, Lotion, [id number], 1 application Topically 2 times a day,Instr:for itchy scalp; apply a thi... Start Date: 12/05/19 Status: Ordered visco heel cups visco heel cups, See Instructions, # 1 pair, Refills 0, Tot. Refills 0, Maintenance, pakistani. wear daily in tennis shoes for plantar [...]
--- OUTSIDE RECORDS SUMMARY | 2023-08-09 10:40 | XMS_ITS | Continuity of Care Document ---
Author Name Unknown Organization [facility] Address [address] [place] [id number]- Care Team Providers Care Triage Technician Name Role Phone Passer Regina MA Primary Care Physician [place] [facility] [place] 04/23/23 [facility]/[place] [address]- Attending Physician: Not on Staff, Attending MD Allergies, Adverse Reactions, Alerts No Known Allergies Immunizations Given and Recorded Vaccine Date Status Refusal Reason [id number] 12y+ bivalent booster vax 06/23/22 Given influenza virus vaccine, inactivated 05/27/22 Give n influenza virus vaccine, inactivated 05/28/20 Give n influenza virus vaccine, inactivated 06/22/18 Give n influenza virus vaccine, inactivated 06/26/17 Give n influenza virus vaccine, inactivated 08/30/16 Give n influenza virus vaccine, inactivated 05/20/15 Give n SARS-CoV-2 mRNA ([id number]-apho-[id number]) vax 11/02/21 Recorded SARS-CoV-2 (COVID-19) mRNA BNT-162b2 [...] 6 Refills, Maintenance, 04/21/23 13:33:00 EDT, Solution, [facility]/pharmacy #[id number], 160.02, cm, 04/21/23 8:18:00 EDT, Height, 114.36, kg, 04/21/23 8:18:00 EDT, Dry Weight Start Date: 04/21/23 Status: Ordered albuterol CFC free 90 mcg/inh inhalation aerosol 2, puffs, Inhalation, 4 times a day, PRN, bulgarian label, # 25 Gm, Refills 11, Tot. Refills 11, Maintenance, 04/21/23 13:33:00 EDT, Aerosol, Route to Pharmacy Electronically, [id number], [facility]/pharmacy #[id number], 160.02, cm, ... Start Date: 04/21/23 Status: Ordered Alcohol pads Alcohol pads, See Instructions, # 100 each, Refills 6, Tot. Refills 6, Maintenance, Dx: T2DM, checkBS 1-2 times daily, 08/11/22 15:47:00 EST, Supply, 160.02, cm, 08/09/22 10:52:00 EST, Height Start Date: 08/11/22 Status: Ordered amitriptyline 50 mg oral tablet 1 tablet = 50 mg, TOME BONIFACIO Hernandez AL ACOSTARSE Start Date: 02/10/23 Status: Ordered atorvastatin 20 mg oral tablet 1 tablet = 20 mg, By Mouth, Daily, for cholesterol label in bulgarian, # 90 tablet, 1 Refills, Maintenance, 04/21/23 13:33:00 EDT, Tablet, [facility]/pharmacy #[id number], Partial fill upon patient request [...] 0 Refills, Maintenance, 07/20/22 15:16:00 EST, Capsule, [facility]/pharmacy #[id number], Partial fill upon patient request [...] 30 tablet, 11 Refills, 04/21/23 13:33:00 EDT, [facility]/pharmacy #[id number], 160.02, cm, 04/21/23 8:18:00 EDT, Height, 114.36, kg, 04/21/23 8:18:00 EDT, Dry Weight Start Date: 04/21/23 Status: Ordered cloNIDine 0.1 mg oral tablet 0.1 mg, 1, tablet, By Mouth, 2 times a day, # 60 tablet, Refills 5, Tot. Refills 5, Maintenance, 01/05/23 10:05:00 EDT, Route to Pharmacy Electronically, [facility]/pharmacy #[id number], Partial fill upon patientrequest if [...] tablet, 2 Refills, Maintenance, 04/21/23 13:33:00 EDT, [facility]/pharmacy #[id number], 160.02, cm, 04/21/23 8:18:00 EDT, Height, 114.36, kg, 04/21/23 8:18:00 EDT, Dry Weight Start Date: 04/21/23 Status: Ordered escitalopram 20 mg oral tablet 0 Refills, Maintenance, 10/17/18 8:58:12 EDT Start Date: 10/17/18 Status: Ordered ferrous sulfate 325 mg oral enteric coated tablet 325 mg, 1, tablet, By Mouth, Daily, with food for anemia label in bulgarian, # 30 tablet, Refills 2, Tot. Refills 2, Maintenance, 08/11/22 15:48:00 EST, [id number] fill upon patient request if the pres... Start Date: 08/11/22 Status: Ordered Flovent HFA 110 mcg/inh inhalation aerosol 2 puffs, Inhalation, 2 times a day, for asthma control. rinse mouth and throat after use lable in bulgarian, # 12 Gm, 11 Refills, Maintenance, 04/21/23 13:34:00 EDT, Aerosol, [facility]/pharmacy #[id number], Partial fill upon patient request [...] at bedtime, for nerve pain label in bulgarian, # 90 tablet, 1 Refills, Maintenance, 04/21/23 13:33:00 EDT, Tablet, [facility]/pharmacy #[id number], Partial fill upon patient request if the [...] each, 11 Refills, Maintenance, 10/13/22 11:43:00 EDT, [facility], Partial fill upon patient request if the [...] 2 hours if response unsatisfactory label in bulgarian, # 12 tablet, 2 Refills, Soft Stop, 04/21/23 13:33:00 EDT, Tablet, [id number], Partial fill upon patient... Start Date: 04/21/23 Status: Ordered metFORMIN 750 mg oral tablet, extended release See Instructions, TAKE 1 TABLET BY MOUTH DAILY FOR DIABETES WITH EVENING MEAL, # 90 tablet, 1 Refills, Maintenance, 03/17/23 21:58:00 EDT, [id number], 160.02, cm, 01/05/23 10:47:00 EDT, Height Start Date: 03/17/23 Status: Ordered nabumetone 750 mg oral tablet 1 tablet = 750 mg, By Mouth, 2 times a day, # 28 tablet, 0 Refills, Maintenance, 02/23/23 18:16:00 EDT, Tablet, [facility]/pharmacy #[id number], Partial fill upon patient request if the prescription is for a schedule II opioid drug., 160.02, cm, 01/05/23 10:47:00... Start Date: 02/23/23 Stop Date: 03/09/23 Status: Ordered Nebulizer/Compressor See Instructions, # 1 each, Maintenance, use as needed dx asthma, 06/06/17 17:41:21, Compound Start Date: 06/06/17 Status: Ordered pantoprazole 40 mg oral delayed release tablet See Instructions, GINO SOSAA TODOS [place], # 90 tablet, 1 [...] scalp apply a thin film label in bulgarian, # 60 mL, 1 Refills, Maintenance, 04/14/22 14:42:00 EDT, Lotion, [id number], 1 application Topically 2 times a day,Instr:for itchy scalp; apply a thi... Start Date: 04/14/22 Status: Ordered visco heel cups visco heel cups, See Instructions, # 1 pair, Refills 0, Tot. Refills 0, Maintenance, bulgarian. wear daily in tennis shoes for plantar [...] Care Team Personnel Name: Regina Worrell Position: [facility] PCO Associate Professional Member Role: PCP Address: Address: [address] [place] [address] Care Team Related Persons Name: PAMELA CHAVEZ Address: home [address] [place] [phone] Name: NIK PÉREZ Address: home [address] [place] [address]
--- OUTSIDE RECORDS SUMMARY | 2023-08-09 10:40 | XMS_ITS | Continuity of Care Document ---
Author Name Unknown Organization [facility] Address [address] [place] [address]- Care Team Providers Care Dough Sheeter Name Role Phone Passer Regina MA Primary Care Physician Encounter [facility] [place] [facility] [id number] Date(s): 02/24/23 - 03/26/23 [facility]/[address] [address]- Attending Physician: Sara Zaldivar Admitting Physician: Sara Zaldivar Referring Physician: Sara Zaldivar Allergies, Adverse Reactions, Alerts No Known Allergies Immunizations Given and Recorded Vaccine Date Status Refusal Reason [id number] 12y+ bivalent booster vax 06/23/22 Given influenza virus vaccine, inactivated 05/27/22 Give n influenza virus vaccine, inactivated 05/28/20 Give n influenza virus vaccine, inactivated 06/22/18 Give n influenza virus vaccine, inactivated 06/26/17 Give n influenza virus vaccine, inactivated 08/30/16 Give n influenza virus vaccine, inactivated 05/20/15 Give n SARS-CoV-2 mRNA ([id number]-tral-[id number]) vax 11/02/21 Recorded SARS-CoV-2 (COVID-19) mRNA BNT-162b2 [...] 6 Refills, Maintenance, 01/11/22 11:04:00 EDT, Solution, [facility]/pharmacy #[id number], 160.02, cm, 11/10/21 8:41:00 EDT, Height, 113.18, kg, 04/20/20 14:58:00 EDT, Dry Weight Start Date: 01/11/22 Status: Ordered albuterol CFC free 90 mcg/inh inhalation aerosol 2, puffs, Inhalation, 4 times a day, PRN, mexican label, # 25 Gm, Refills 11, Tot. Refills 11, Maintenance, 12/23/21 12:20:00 EDT, Aerosol, Route to Pharmacy Electronically, [id number], [facility]/pharmacy #[id number], 160.02, cm, ... Start Date: 12/23/21 [...] By Mouth, Daily, for cholesterol label in mexican, # 90 tablet, 1 Refills, Maintenance, 10/07/22 8:45:00 EDT, Tablet, [facility]/pharmacy #[id number], Partial fill upon patient request if [...] 0 Refills, Maintenance, 07/20/22 15:16:00 EST, Capsule, [facility]/pharmacy #[id number], Partial fill upon patient request if [...] 30 tablet, 11 Refills, 04/14/22 14:32:00 EDT, [facility]/pharmacy #[id number], 160.02, cm, 04/14/22 14:24:00 EDT, Height, 113.18, kg, 04/20/20 14:58:00 EDT, Dry Weight Start Date: 04/14/22 Status: Ordered cloNIDine 0.1 mg oral tablet 0.1 mg, 1, tablet, By Mouth, 2 times a day, # 60 tablet, Refills 5, Tot. Refills 5, Maintenance, 01/05/23 10:05:00 EDT, Route to Pharmacy Electronically, [facility]/pharmacy #[id number], Partial fill upon patientrequest if the [...] tablet, 2 Refills, Maintenance, 01/04/23 10:54:00 EDT, [facility] STORE [id number], 160.02, cm, 10/14/22 11:16:00 EDT, Height Start Date: 01/04/23 Status: Ordered escitalopram 20 mg oral tablet 0 Refills, Maintenance, 10/17/18 8:58:12 EDT Start Date: 10/17/18 Status: Ordered ferrous sulfate 325 mg oral enteric coated tablet 325 mg, 1, tablet, By Mouth, Daily, with food for anemia label in mexican, # 30 tablet, Refills 2, Tot. Refills 2, Maintenance, 08/11/22 15:48:00 EST, Route to Pharmacy Electronically, [facility]/pharmacy #[id number], Partial fill upon patient request if the [...] at bedtime, for nerve pain label in mexican, # 90 tablet, 1 Refills, Maintenance, 10/07/22 8:48:00 EDT, Tablet, [facility]/pharmacy #[id number], Partial fill upon patient request if [...] each, 11 Refills, Maintenance, 10/13/22 11:43:00 EDT, [facility], Partial fill upon patient request if [...] 2 hours if response unsatisfactory label in mexican, # 12 tablet, 2 Refills, Soft Stop, 05/27/22 17:10:00 EDT, Tablet, [facility]/pharmacy #[id number], Partial fill upon patient... Start Date: 05/27/22 Status: Ordered metFORMIN 750 mg oral tablet, extended release See Instructions, TAKE 1 TABLET BY MOUTH DAILY FOR DIABETES WITH EVENING MEAL, # 90 tablet, 1 Refills, Maintenance, 03/17/23 21:58:00 EDT, [facility], 160.02, cm, 01/05/23 10:47:00 EDT, Height Start Date: 03/17/23 Status: Ordered nabumetone 750 mg oral tablet 1 tablet = 750 mg, By Mouth, 2 times a day, # 28 tablet, 0 Refills, Maintenance, 02/23/23 18:16:00 EDT, Tablet, [facility]/pharmacy #[id number], Partial fill upon patient request if the prescription is for a schedule II opioid drug., 160.02, cm, 01/05/23 10:47:00... Start Date: 02/23/23 Stop Date: 03/09/23 Status: Ordered Nebulizer/Compressor See Instructions, # 1 each, Maintenance, use as needed dx asthma, 06/06/17 17:41:21, Compound Start Date: 06/06/17 Status: Ordered pantoprazole 40 mg oral delayed release tablet See InstructionsGINODOSelin [place], # 90 tablet, 1 Refills, [...] scalp apply a thin film label in mexican, # 60 mL, 1 Refills, Maintenance, 04/14/22 14:42:00 EDT, Lotion, [id number], 1 application Topically 2 times a day,Instr:for itchy scalp; apply a thi... Start Date: 04/14/22 Status: Ordered visco heel cups visco heel cups, See Instructions, # 1 pair, Refills 0, Tot. Refills 0, Maintenance, mexican. wear daily in tennis shoes for plantar [...] Personnel Name: Regina Worrell Position: [facility] PCO Associate Professional Member Role: PCP Address: Address: [address] [place] [address] Care Team Related Persons Name: PAMELA CHAVEZ Address: home [address] [address] Name: NIK PÉREZ Address: home [address] [address]
--- OUTSIDE RECORDS SUMMARY | 2023-08-09 10:40 | XMS_ITS | Continuity of Care Document ---
Author Name Unknown Organization [facility] Address [address] [place] [address]- Care Team Providers Care Denture Contour Wire Specialist Name Role Phone Regina Worrell Primary Care Physician Encounter [facility] [place] Date(s): 12/05/19 - 12/12/19 [facility]/[address] [address]- [facility] Attending Physician: Regina Worrell Admitting Physician: Regina Worrell Allergies, Adverse Reactions, Alerts [...] mouth and throat after use label in american, #60 each, 11 Refills, Maintenance, 12/05/19 11:01:00 EDT, Aerosol, [id number], 2 puffs Inhalation 2 times a day,Instr:for asthma; rinse mouth... Start Date: 12/05/19 Status: Ordered Aerochamber w/Mask (Large) See Instructions, # 1 each, Maintenance, dx asthma use as needed, 06/28/17 15:17:40, Compound Start Date: 06/28/17 Status: Ordered albuterol 0.083% inhalation solution 3 mL = 2.5 mg, Inhalation, Every 4 hours, PRN for wheezing, # 75 each, 4 Refills, Maintenance, 12/05/19 11:01:00 EDT, Solution, [facility]/pharmacy #[id number], 160.02, cm, 06/14/19 11:58:00 EST, Height, 107.2, kg, 06/14/19 11:02:00 EST, Dry Weight Start Date: 12/05/19 Status: Ordered albuterol CFC free 90 mcg/inh inhalation aerosol 2, puffs, Inhalation, 4 times a day, PRN, american label, # 25 Gm, Refills 11, Tot. Refills 11, Maintenance, 12/05/19 11:01:00 EDT, Aerosol, Route to Pharmacy Electronically, [id number], [facility]/pharmacy #[id number], 160.02, cm, ... Start Date: 12/05/19 Status: Ordered amitriptyline 25 mg oral tablet 25 mg, 1, tablet, By Mouth, Daily at bedtime, for FERRERA and Fibromyalgia label in american, # 90 tablet, Refills 0, Tot. Refills 0, Maintenance, 02/04/19 14:21:26 EDT, Route to Pharmacy Electronically, [id number], [facility]/pharmacy #... Start Date: 02/04/19 Status: Ordered Blood Pressure Monitor See Instructions, [...] 10 mg, By Mouth, Daily, for allergies american label, # 90 tablet, 0 Refills, Maintenance, 11/05/19 8:25:00 EDT, Tablet, [facility]/pharmacy #[id number], 160.02, cm, 06/14/19 11:58:00 EST, Height, 107.2, kg, 06/14/19 11:02:00 EST, Dry Weight Start Date: 11/05/19 Status: Ordered clonazePAM 1 mg oral tablet [...] By Mouth, 3 times a day, for back, hip and knee pain take with food label in american, # 60 tablet, 2 Refills, Maintenance, 12/05/19 10:58:00 EDT, Tablet, [facility]/pharmacy #[id number], 160.02, cm, 06/14/19 11:58:00 EST, Height, 107.2, kg, 05/25... Start Date: 12/05/19 Status: Ordered escitalopram 20 mg oral tablet 0 Refills, Maintenance, 10/17/18 8:58:12 EDT Start Date: 10/17/18 Status: Ordered Flonase 50 mcg/inh nasal spray 2 sprays, Nares, Both, Daily in AM, for allergies label in american, # 16 Gm, 11 Refills, Maintenance, 12/05/19 11:01:00 EDT, [place], [facility]/pharmacy #[id number], 2 sprays Nares, Both Daily in AM,Instr:for allergies; label in american, 160.02, cm, 06/14/19 11:58... Start Date: 12/05/19 Status: Ordered hydrocortisone 1% topical cream 1 application, Topically, 2 times a day, for 14 days, for rash on neck label in american, # 30 Gm, 0Refills, Acute 12/19/19 11:02:00 EDT, 12/05/19 11:02:00 EDT, Cream, [facility]/pharmacy #[id number], 1 application Topically 2 times a day,x14 days,Instr:for rash... Start Date: 12/05/19 Stop Date: 12/19/19 Status: Ordered ipratropium nasal 42 mcg/inh spray 2 sprays, Nares, Both, Daily at bedtime, [place]UD[place]AB[place]., # 1 each, 5 Refills, Maintenance, 01/22/18 11:32:47 EDT, 2 sprays Nares, Both Daily at bedtime,x30 days,Instr:SAUD[place] ARABIAN. Start Date: 01/22/18 Stop Date: 07/21/18 Status: Ordered knee brace knee brace, See [...] wash hands thoroughly after application label in american, # 50 Gm, 3 Refills, Maintenance, 10/17/18 8:56:11 EDT, 1 applicator Topically 3 times a day,Instr:for shoulder and knee pain... Start Date: 10/17/18 Status: Ordered nabumetone 750 mg oral tablet 1 tablet = 750 mg, By Mouth, 2 times a day, for back, hip and knee pain take with food label in american, # 60 tablet, 2 Refills, Maintenance, 12/05/19 10:58:00 EDT, Tablet, [facility]/pharmacy #[id number], 160.02, cm, 06/14/19 11:58:00 EST, Height, 107.2, kg, 11... Start Date: 12/05/19 Status: Ordered Nebulizer/Compressor See Instructions, # 1 each, Maintenance, use as needed dx asthma, 06/06/17 17:41:21, Compound Start Date: 06/06/17 Status: Ordered norethindrone 5 mg oral tablet 10 mg, 2, tablet, By Mouth, Daily, # 60 tablet, Refills 8, Tot. Refills 8, Maintenance, 10/29/19 10:55:00 EDT, Route to Pharmacy Electronically, [facility]/pharmacy #[id number], 160.02, cm, 06/14/19 11:58:00 EST,Height, 107.2, kg, 06/14/19 11:02:00 EST, Dry Weight Start Date: 10/29/19 Stop Date: 07/25/20 Status: Ordered omeprazole 40 mg oral enteric coated capsule See Instructions, DEANNAE BONIFACIO CAPSULA POR VIA ORAL TODOS [place], # 30 capsule, 3 Refills, Maintenance, [facility] STORE [id number], 160.02, cm, 06/14/19 11:58:00 EST, Height, 107.2, kg, 06/14/19 11:02:00 EST, DryWeight Start Date: 11/18/19 Status: Ordered pregabalin 100 mg oral capsule TOME BONIFACIO C PSULA TOCHRISTINA D AL ACOSTARSE Start Date: 12/05/19 Status: Ordered propranolol 120 mg oral capsule, extended release TOME BONIFACIO C PSULA TODOS MEGHNA D EN LA MA DAVID Start Date: 12/05/19 Status: Ordered propranolol 80 mg oral capsule, extended release 80 mg, 1, capsule, By Mouth, Daily, # 30 capsule, Refills 0, Maintenance, 10/17/18 8:38:00 EDT Start Date: 10/17/18 Status: Ordered Singulair 10 mg oral tablet 10 mg, 1, tablet, By Mouth, Daily, for allergy and asthma label in american, # 90 tablet, Refills 3,Tot. Refills 3, Maintenance, 12/05/19 11:01:00 EDT, Route to Pharmacy Electronically, [facility]/pharmacy #[id number], 160.02, cm, 06/14/19 11:58:00 EST, Height, [...] scalp apply a thin film label in american, # 60 mL, 1 Refills, Maintenance, 12/05/19 11:03:00 EDT, Lotion, [id number], 1 application Topically 2 times a day,Instr:for itchy scalp; apply a thi... Start Date: 12/05/19 Status: Ordered visco heel cups visco heel cups, See Instructions, # 1 pair, Refills 0, Tot. Refills 0, Maintenance, american. wear daily in tennis shoes for plantar [...]
--- OUTSIDE RECORDS SUMMARY | 2023-08-09 10:40 | XMS_ITS | Continuity of Care Document ---
Author Name Unknown Organization [facility] Address [address] [place] [address]- Care Team Providers Care Evp Strategy Name Role Phone Passer Regina MA Primary Care Physician Encounter [facility] [place] [place] Date(s): 05/09/23 - 06/08/23 [facility]/[address] [address]- [place] Allergies, Adverse Reactions, Alerts No Known Allergies Immunizations Given and Recorded Vaccine Date Status Refusal Reason [id number] 12y+ bivalent booster vax 06/23/22 Given influenza virus vaccine, inactivated 05/27/22 Give n influenza virus vaccine, inactivated 05/28/20 Give n influenza virus vaccine, inactivated 06/22/18 Give n influenza virus vaccine, inactivated 06/26/17 Give n influenza virus vaccine, inactivated 08/30/16 Give n influenza virus vaccine, inactivated 05/20/15 Give n SARS-CoV-2 mRNA ([id number]) vax 11/02/21 Recorded SARS-CoV-2 (COVID-19) mRNA BNT-162b2 [...] 6 Refills, Maintenance, 04/21/23 13:33:00 EDT, Solution, [facility]/pharmacy #[id number], 160.02, cm, 04/21/23 8:18:00 EDT, Height, 114.36, kg, 04/21/23 8:18:00 EDT, Dry Weight Start Date: 04/21/23 Status: Ordered albuterol CFC free 90 mcg/inh inhalation aerosol 2, puffs, Inhalation, 4 times a day, PRN, citizen [place] label, # 25 Gm, Refills 11, Tot. Refills 11, Maintenance, 04/21/23 13:33:00 EDT, Aerosol, Route to Pharmacy Electronically, [id number], [facility]/pharmacy #[id number], 160.02, cm, ... Start Date: 04/21/23 Status: Ordered Alcohol pads Alcohol pads, See Instructions, # 100 each, Refills 6, Tot. Refills 6, Maintenance, Dx: T2DM, checkBS 1-2 times daily, 08/11/22 15:47:00 EST, Supply, 160.02, cm, 08/09/22 10:52:00 EST, Height Start Date: 08/11/22 Status: Ordered amitriptyline 50 mg oral tablet 1 tablet = 50 mg, TOME BONIFACIO DESTINEE Hernandez AL ACOSTARSE Start Date: 02/10/23 Status: Ordered atorvastatin 20 mg oral tablet 1 tablet = 20 mg, By Mouth, Daily, for cholesterol label in citizen of [place], # 90 tablet, 1 Refills, Maintenance, 04/21/23 13:33:00 EDT, Tablet, [facility]/pharmacy #[id number], Partial fill upon patient [...] 0 Refills, Maintenance, 07/20/22 15:16:00 EST, Capsule, [facility]/pharmacy #[id number], Partial fill upon patient [...] 30 tablet, 11 Refills, 04/21/23 13:33:00 EDT, [facility]/pharmacy #[id number], 160.02, cm, 04/21/23 8:18:00 EDT, Height, 114.36, kg, 04/21/23 8:18:00 EDT, Dry Weight Start Date: 04/21/23 Status: Ordered cloNIDine 0.1 mg oral tablet 0.1 mg, 1, tablet, By Mouth, 2 times a day, # 60 tablet, Refills 5, Tot. Refills 5, Maintenance, 01/05/23 10:05:00 EDT, Route to Pharmacy Electronically, [facility]/pharmacy #[id number], Partial fill upon patientrequest [...] tablet, 2 Refills, Maintenance, 04/21/23 13:33:00 EDT, [facility]/pharmacy #[id number], 160.02, cm, 04/21/23 8:18:00 EDT, Height, 114.36, kg, 04/21/23 8:18:00 EDT, Dry Weight Start Date: 04/21/23 Status: Ordered escitalopram 20 mg oral tablet 0 Refills, Maintenance, 10/17/18 8:58:12 EDT Start Date: 10/17/18 Status: Ordered ferrous sulfate 325 mg oral enteric coated tablet 325 mg, 1, tablet, By Mouth, Daily, with food for anemia label in citizen of [place], # 30 tablet, Refills 2, Tot. Refills 2, Maintenance, 08/11/22 15:48:00 EST, Route to Pharmacy Electronically, [facility]/pharmacy #[id number], Partial fill upon patient request if the pres... Start Date: 08/11/22 Status: Ordered Flovent HFA 110 mcg/inh inhalation aerosol 2 puffs, Inhalation, 2 times a day, for asthma control. rinse mouth and throat after use lable in citizen of [place], # 12 Gm, 11 Refills, Maintenance, 04/21/23 13:34:00 EDT, Aerosol, [facility]/pharmacy #[id number], Partial fill upon patient [...] at bedtime, for nerve pain label in citizen of [place], # 90 tablet, 1 Refills, Maintenance, 04/21/23 13:33:00 EDT, Tablet, [facility]/pharmacy #[id number], Partial fill upon patient request if the [...] each, 11 Refills, Maintenance, 10/13/22 11:43:00 EDT, [facility], Partial fill upon patient request if [...] 2 hours if response unsatisfactory label in citizen of [place], # 12 tablet, 2 Refills, Soft Stop, 04/21/23 13:33:00 EDT, Tablet, [facility]/pharmacy #[id number], Partial fill upon patient... Start Date: 04/21/23 Status: Ordered metFORMIN 500 mg oral tablet, extended release 2 tablet = 1,000 mg, By Mouth, 2 times a day, for blood sugar dosage adjustment label in citizen of [place], #360 tablet, 0 Refills, Maintenance, 05/09/23 22:48:00 EDT, ER Tablet, [facility]/pharmacy #[id number], Partial fill upon patient request if the prescription is fo... Start Date: 05/09/23 Status: Ordered nabumetone 750 mg oral tablet 1 tablet = 750 mg, By Mouth, 2 times a day, # 28 tablet, 0 Refills, Maintenance, 02/23/23 18:16:00 EDT, Tablet, [facility]/pharmacy #[id number], Partial fill upon patient [...] scalp apply a thin film label in citizen of [place], # 60 mL, 1 Refills, Maintenance, 04/14/22 14:42:00 EDT, Lotion, [id number], 1 application Topically 2 times a day,Instr:for itchy scalp; apply a thi... Start Date: 04/14/22 Status: Ordered visco heel cups visco heel cups, See Instructions, # 1 pair, Refills 0, Tot. Refills 0, Maintenance, citizen of [place]. wear daily in tennis shoes for plantar [...] Care Team Personnel Name: Regina Worrell Position: [facility] PCO Associate Professional Member Role: PCP Address: Address: [address] [place] [address] Care Team Related Persons Name: PAMELA CHAVEZ Address: home [address] [address] Name: NIK PÉREZ Address: home [address] [place] [id number]
--- OUTSIDE RECORDS SUMMARY | 2023-08-09 10:40 | XMS_ITS | Continuity of Care Document ---
Author Name Unknown Organization [facility] Address [address] [place] [address]- Care Team Providers Care Repairer Controller Tester Name Role Phone Passer Regina MA Primary Care Physician [place] [facility] [place] [facility] [place]s): 08/26/20 - 09/25/20 [facility]/[address] [address]- Allergies, Adverse Reactions, Alerts Substance Reaction Severity [...] mouth and throat after use label in qatari, #60 each, 11 Refills, Maintenance, 12/05/19 11:01:00 EDT, [facility]erosol, [id number], 2 puffs Inhalation 2 times a day,Instr:for asthma; rinse mouth... Start Date: 12/05/19 Status: Ordered Aerochamber w/Mask (Large) See Instructions, # 1 each, Maintenance, dx asthma use as needed, 06/28/17 15:17:40, Compound Start Date: 06/28/17 Status: Ordered albuterol 0.083% inhalation solution 3 mL = 2.5 mg, Inhalation, Every 4 hours, PRN for wheezing, # 75 each, 4 Refills, Maintenance, 12/05/19 11:01:00 EDT, Solution, [facility]/pharmacy #[id number], 160.02, cm, 06/14/19 11:58:00 EST, Height, 107.2, kg, 06/14/19 11:02:00 EST, Dry Weight Start Date: 12/05/19 Status: Ordered albuterol CFC free 90 mcg/inh inhalation aerosol 2, puffs, Inhalation, 4 times a day, PRN, qatari label, # 25 Gm, Refills 11, Tot. Refills 11, Maintenance, 12/05/19 11:01:00 EDT, Aerosol, Route to Pharmacy Electronically, [id number], [facility]/pharmacy #[id number], 160.02, cm, ... Start Date: 12/05/19 Status: Ordered amitriptyline 25 mg oral tablet 25 mg, 1, tablet, By Mouth, Daily at bedtime, for FERRERA and Fibromyalgia label in qatari, # 90 tablet, Refills 0, Tot. Refills 0, Maintenance, 02/04/19 14:21:26 EDT, Route to Pharmacy Electronically, [id number], [facility]/pharmacy #... Start Date: 02/04/19 Status: Ordered baclofen 20 mg oral tablet 1, tablet, By Mouth, 2 times a day, FOR MUSCLE PAIN., # 60 tablet, Refills 2, Tot. Refills 0, Maintenance, 08/31/20 8:49:00 EST, Route to Pharmacy Electronically, [id number], 160.02, cm, 08/27/20 8:49:00 EST, Height, 113.18, [...] and joint pains with food label in qatari, #60 capsule, 2 Refills, Maintenance, 05/28/20 11:58:00 EST, Capsule, [facility]/pharmacy #[id number], 160.02, cm,05/28/20 11:02:00 EST, Height, 113.18, kg, ... Start Date: 05/28/20 Status: Ordered cetirizine 10 mg oral tablet 1 tablet = 10 mg, By Mouth, Daily, for allergies qatari label, # 90 tablet, 1 Refills, Maintenance, 03/23/20 9:46:00 EDT, Tablet, [facility]/pharmacy #[id number], 160.02, cm, 06/14/19 11:58:00 EST, Height, [...] Daily in AM, for allergies label in qatari, # 16 Gm, 11 Refills, Maintenance, 12/05/19 11:01:00 EDT, [place], [facility]/pharmacy #[id number], 2 sprays Nares, Both Daily in AM,Instr:for allergies; label in qatari, 160.02, cm, 06/14/19 11:58... Start Date: 12/05/19 Status: Ordered ipratropium nasal 42 mcg/inh spray 2 sprays, Nares, Both, Daily at bedtime, [place]., # 1 each, 5 Refills, Maintenance, 01/22/18 11:32:47 EDT, 2 sprays Nares, Both Daily at bedtime,x30 days,Instr:[place]. Start Date: 01/22/18 Stop Date: 07/21/18 Status: Ordered ketoconazole 1% topical shampoo See Instructions, wash hair with 2-3 times per week label in qatari, # 125 mL, 6 Refills, Maintenance, 05/28/20 11:59:00 EST, [facility]/pharmacy #[id number], wash hair with 2-3 times per week; label in qatari,160.02, cm, 05/28/20 11:02:00 EST, Height, 113.18,... Start [...] wash hands thoroughly after application label in qatari, # 50 Gm, 3 Refills, Maintenance, 10/17/18 [...] 02/06/20 10:08:00 EDT, Route to Pharmacy Electronically, [facility]/pharmacy #[id number], 160.02, cm, 06/14/19 11:58:00 EST, Height, 107.2, kg, 06/14/19 11:02:00 EST, Dry Weight Start Date: 02/06/20 Stop Date: 01/31/21 Status: Ordered omeprazole 40 mg oral enteric coated capsule See Instructions, TOME BONIFACIO CAPSULA POR VIA ORAL [place], # 30 capsule, 3 Refills, Maintenance, [facility], 160.02, cm, 05/28/20 11:02:00 EST, Height, 113.18, kg, 04/20/20 14:58:00 EDT, Dry Weight Start Date: 07/23/20 Status: Ordered pregabalin 100 mg oral capsule TOME BONIFACIO C PSULA TODOS MEGHNA D AL ACOSTARSE Start Date: 12/05/19 Status: [...] Daily, for allergy and asthma label in qatari, # 90 tablet, Refills 3,Tot. Refills 3, Maintenance, 12/05/19 11:01:00 EDT, Route to Pharmacy Electronically, [facility]/pharmacy #[id number], 160.02, cm, 06/14/19 11:58:00 EST, Height, [...] thin film to affected area label in qatari, # 60 Gm, 1 Refills, Maintenance, 05/28/20 11:59:00 EST, Cream, [facility]/pharmacy #[id number], 1 application Topically 3 times a day,Instr:apply a thin film; to affect... Start Date: 05/28/20 Status: Ordered triamcinolone 0.025% topical lotion 1 application, Topically, 2 times a day, for itchy scalp apply a thin film label in qatari, # 60 mL, 1 Refills, Maintenance, 12/05/19 11:03:00 EDT, Lotion, [id number], 1 application Topically 2 times a day,Instr:for itchy scalp; apply a thi... Start Date: 12/05/19 Status: Ordered visco heel cups visco heel cups, See Instructions, # 1 pair, Refills 0, Tot. Refills 0, Maintenance, qatari. wear daily in tennis shoes for plantar [...] 04/30/99 Yohan , 07/16/1998, Cesar , [birth year] Isanieliz Social History Social History Type Response Smoking Status Never (less than 100 in lifetime);Never entered on: 04/20/20 Sex
--- OUTSIDE RECORDS SUMMARY | 2023-08-09 10:40 | XMS_ITS | Continuity of Care Document ---
Author Name Unknown Organization [facility] Address [address] [place] [address]- Care Team Providers Care Hearing Instrument Specialist Name Role Phone Regina Worrell Primary Care Physician Encounter [facility] [place] Date(s): 12/05/19 - 04/03/20 [facility] [address] [address]- [facility] Attending Physician: Regina Worrell Admitting Physician: Regina [...] mouth and throat after use label in irish, #60 each, 11 Refills, Maintenance, 12/05/19 11:01:00 EDT, [facility]erosol, [id number], 2 puffs Inhalation 2 times a day,Instr:for asthma; rinse mouth... Start Date: 12/05/19 Status: Ordered Aerochamber w/Mask (Large) See Instructions, # 1 each, Maintenance, dx asthma use as needed, 06/28/17 15:17:40, Compound Start Date: 06/28/17 Status: Ordered albuterol 0.083% inhalation solution 3 mL = 2.5 mg, Inhalation, Every 4 hours, PRN for wheezing, # 75 each, 4 Refills, Maintenance, 12/05/19 11:01:00 EDT, Solution, [facility]/pharmacy #[id number], 160.02, cm, 06/14/19 11:58:00 EST, Height, 107.2, kg, 06/14/19 11:02:00 EST, Dry Weight Start Date: 12/05/19 Status: Ordered albuterol CFC free 90 mcg/inh inhalation aerosol 2, puffs, Inhalation, 4 times a day, PRN, irish label, # 25 Gm, Refills 11, Tot. Refills 11, Maintenance, 12/05/19 11:01:00 EDT, Aerosol, Route to Pharmacy Electronically, [id number], [facility]/pharmacy #[id number], 160.02, cm, ... Start Date: 12/05/19 Status: Ordered amitriptyline 25 mg oral tablet 25 mg, 1, tablet, By Mouth, Daily at bedtime, for FERRERA and Fibromyalgia label in irish, # 90 tablet, Refills 0, Tot. Refills 0, Maintenance, 02/04/19 14:21:26 EDT, Route to Pharmacy Electronically, [id number], [facility]/pharmacy #... Start Date: 02/04/19 Status: Ordered Blood [...] 10 mg, By Mouth, Daily, for allergies irish label, # 90 tablet, 1 Refills, Maintenance, 03/23/20 9:46:00 EDT, Tablet, [facility]/pharmacy #[id number], 160.02, cm, 06/14/19 11:58:00 EST, [...] knee pain take with food label in irish, # 60 tablet, 2 Refills, Maintenance, 12/05/19 10:58:00 EDT, Tablet, [facility]/pharmacy #[id number], 160.02, cm, 06/14/19 11:58:00 EST, Height, 107.2, kg, 05/25... Start Date: 12/05/19 Status: Ordered escitalopram 20 mg oral tablet 0 Refills, Maintenance, 10/17/18 8:58:12 EDT Start Date: 10/17/18 Status: Ordered Flonase 50 mcg/inh nasal spray 2 sprays, Nares, Both, Daily in AM, for allergies label in irish, # 16 Gm, 11 Refills, Maintenance, 12/05/19 11:01:00 EDT, [place], [facility]/pharmacy #[id number], 2 sprays Nares, Both Daily in AM,Instr:for allergies; label in irish, 160.02, cm, 06/14/19 11:58... Start Date: 12/05/19 Status: Ordered ipratropium nasal 42 mcg/inh spray 2 sprays, Nares, Both, Daily at bedtime, [place]., # 1 each, 5 Refills, Maintenance, 01/22/18 11:32:47 EDT, 2 sprays Nares, Both Daily at bedtime,x30 days,Instr:[place]. Start Date: 01/22/18 Stop Date: 07/21/18 Status: [...] wash hands thoroughly after application label in irish, # 50 Gm, 3 Refills, Maintenance, 10/17/18 8:56:11 EDT, 1 applicator Topically 3 times a day,Instr:for shoulder and knee pain... Start Date: 10/17/18 Status: Ordered nabumetone 750 mg oral tablet 1 tablet = 750 mg, By Mouth, 2 times a day, for back, hip and knee pain take with food label in irish, # 60 tablet, 2 Refills, Maintenance, 12/05/19 10:58:00 EDT, Tablet, [facility]/pharmacy #[id number], 160.02, cm, 06/14/19 11:58:00 EST, [...] 02/06/20 10:08:00 EDT, Route to Pharmacy Electronically, [facility]/pharmacy #[id number], 160.02, cm, 06/14/19 11:58:00 EST, Height, 107.2, kg, 06/14/19 11:02:00 EST, Dry Weight Start Date: 02/06/20 Stop Date: 01/31/21 Status: Ordered omeprazole 40 mg oral enteric coated capsule See Instructions, TOME BONIFACIO CAPSULA POR VIA ORAL [place], # 30 capsule, 3 Refills, Maintenance, [facility] [id number], 160.02, cm, 06/14/19 11:58:00 EST, Height, 107.2, [...] Daily, for allergy and asthma label in irish, # 90 tablet, Refills 3,Tot. Refills 3, Maintenance, 12/05/19 11:01:00 EDT, Route to Pharmacy Electronically, [facility]/pharmacy #[id number], 160.02, cm, 06/14/19 11:58:00 EST, [...] scalp apply a thin film label in irish, # 60 mL, 1 Refills, Maintenance, 12/05/19 11:03:00 EDT, Lotion, [facility]/pharmacy #[id number], 1 application Topically 2 times a day,Instr:for itchy scalp; apply a thi... Start Date: 12/05/19 Status: Ordered visco heel cups visco heel cups, See Instructions, # 1 pair, Refills 0, Tot. Refills 0, Maintenance, irish. wear daily in tennis shoes for plantar [...] David Almanzar , 07/16/1998, Cesar , [birth year]04 David Vang Social History Social History Type Response Smoking Status Never entered on: 12/13/18 Sex
--- OUTSIDE RECORDS SUMMARY | 2023-08-09 10:40 | XMS_ITS | Continuity of Care Document ---
Author Name Unknown Organization [facility] Address [address] [place] [id number]- Care Team Providers Care Database Report Writer Name Role Phone Regina Worrell Primary Care Physician [place] [facility] [place] 11/02/20 - 12/25/[address] [address] Discharge Disposition: A-D/C Home Attending Physician: Regina Worrell Admitting Physician: Regina Worrell Referring Physician: Regina Worrell Allergies, Adverse Reactions, [...] mouth and throat after use label in haitian, #60 each, 11 Refills, Maintenance, 12/05/19 11:01:00 EDT, Aerosol, [id number], 2 puffs Inhalation 2 times a day,Instr:for asthma; rinse mouth... Start Date: 12/05/19 Status: Ordered Aerochamber w/Mask (Large) See Instructions, # 1 each, Maintenance, dx asthma use as needed, 06/28/17 15:17:40, Compound Start Date: 06/28/17 Status: Ordered albuterol 0.083% inhalation solution 3 mL = 2.5 mg, Inhalation, Every 4 hours, PRN for wheezing, # 75 each, 4 Refills, Maintenance, 12/05/19 11:01:00 EDT, Solution, [facility]/pharmacy #[id number], 160.02, cm, 06/14/19 11:58:00 EST, Height, 107.2, kg, 06/14/19 11:02:00 EST, Dry Weight Start Date: 12/05/19 Status: Ordered albuterol CFC free 90 mcg/inh inhalation aerosol 2, puffs, Inhalation, 4 times a day, PRN, haitian label, # 25 Gm, Refills 11, Tot. Refills 11, Maintenance, 12/05/19 11:01:00 EDT, Aerosol, Route to Pharmacy Electronically, [id number], [facility]/pharmacy #[id number], 160.02, cm, ... [...] 11/13/20 13:57:00 EDT, Route to Pharmacy Electronically, [facility]/pharmacy #[id number], 160.02, cm, 11/13/20 13:37:00 EDT, [...] 10 mg, By Mouth, Daily, for allergies haitian label, # 90 tablet, 1 Refills, Maintenance, 12/01/20 18:55:00 EDT, Tablet, [facility]/pharmacy #[id number], 160.02, cm, 11/13/20 13:37:00 EDT, [...] Daily in AM, for allergies label in haitian, # 16 Gm, 5 Refills, Maintenance, 12/14/20 10:44:00 EDT, [place], [facility]/pharmacy #[id number], 2 sprays Nares, Both Daily in AM,Instr:for allergies; label in haitian, 160.02, cm, 11/13/20 13:37:... Start Date: 12/14/20 [...] Daily, for swelling in legs label in haitian, # 30 tablet, Refills 0, Tot. Refills 0, Maintenance, 10/29/20 17:53:00 EDT, Route to Pharmacy Electronically, [facility]/pharmacy #[id number], Partial fill upon [...] Mouth, Daily, for blood sugar label in haitian with evening meal, # 30 tablet, 3 Refills, Maintenance, 12/16/20 18:22:00 EDT, ER Tablet, [id number], Partial fill upon patient request if the prescription is for a schedul... Start Date: 12/16/20 Status: Ordered nabumetone 750 mg oral tablet 1 tablet = 750 mg, By Mouth, 2 times a day, for pain with food label in haitian, # 60 tablet, 3 Refills, Maintenance, 11/13/20 13:58:00 EDT, Tablet, [id number], Partial fill upon [...] 02/06/20 10:08:00 EDT, Route to Pharmacy Electronically, [facility]/pharmacy #[id number], 160.02, cm, 06/14/19 11:58:00 EST, Height, 107.2, kg, 06/14/19 11:02:00 EST, Dry Weight Start Date: 02/06/20 Stop Date: 01/31/21 Status: Ordered omeprazole 40 mg oral enteric coated capsule See Instructions, TOME BONIFACIO CAPSULA POR VIA ORAL TODOS [place] HOOPER, # 30 capsule, 11 Refills, 11/13/20 13:57:00 EDT, [facility]/pharmacy #[id number], 160.02, cm, 11/13/20 13:37:00 EDT, [...] Daily, for allergy and asthma label in haitian, # 90 tablet, Refills 3,Tot. Refills 3, Maintenance, 12/05/19 11:01:00 EDT, Route to Pharmacy Electronically, [facility]/pharmacy #[id number], 160.02, cm, 06/14/19 [...] pair, Refills 0, Tot. Refills 0, Maintenance, haitian. wear daily in tennis shoes for plantar [...]
--- OUTSIDE RECORDS SUMMARY | 2023-08-09 10:40 | XMS_ITS | Continuity of Care Document ---
Author Name Unknown Organization [facility] Address [address] [place] [address]- Care Team Providers Care Loan Specialist Name Role Phone Regina Worrell Primary Care Physician [place] [facility] [id number] Date(s): 06/05/23 - 07/19/23 [facility] [address] [place] [address]- Attending Physician: Not on Staff, Attending MD Referring Physician: Regina Worrell Allergies, Adverse Reactions, Alerts No Known Allergies Immunizations Given and Recorded Vaccine Date Status Refusal Reason [id number] 12y+ bivalent booster vax 06/23/22 Given influenza virus vaccine, inactivated 05/27/22 Give n influenza virus vaccine, inactivated 05/28/20 Give n influenza virus vaccine, inactivated 06/22/18 Give n influenza virus vaccine, inactivated 06/26/17 Give n influenza virus vaccine, inactivated 08/30/16 Give n influenza virus vaccine, inactivated 05/20/15 Give n SARS-CoV-2 mRNA ([id number]) vax 11/02/21 Recorded SARS-CoV-2 (COVID-19) mRNA BNT-162b2 [...] Refills, Maintenance, 04/21/23 13:33:00 EDT, Solution, [facility]/pharmacy #[id number], 160.02, cm, 04/21/23 8:18:00 EDT, Height, 114.36, kg, 04/21/23 8:18:00 EDT, Dry Weight Start Date: 04/21/23 Status: Ordered albuterol CFC free 90 mcg/inh inhalation aerosol 2, puffs, Inhalation, 4 times a day, PRN, fijian label, # 25 Gm, Refills 11, Tot. Refills 11, Maintenance, 04/21/23 13:33:00 EDT, Aerosol, Route to Pharmacy Electronically, [id number], [facility]/pharmacy #[id number], [...] By Mouth, Daily, for cholesterol label in fijian, # 90 tablet, 1 Refills, Maintenance, 04/21/23 13:33:00 EDT, Tablet, [facility]/pharmacy #[id number], Partial fill upon patient request [...] Refills, Maintenance, 07/20/22 15:16:00 EST, Capsule, [facility]/pharmacy #[id number], Partial fill upon patient request [...] tablet, 11 Refills, 04/21/23 13:33:00 EDT, [facility]/pharmacy #[id number], 160.02, cm, 04/21/23 8:18:00 EDT, Height, 114.36, kg, 04/21/23 8:18:00 EDT, Dry Weight Start Date: 04/21/23 Status: Ordered cloNIDine 0.1 mg oral tablet 0.1 mg, 1, tablet, By Mouth, 2 times a day, # 60 tablet, Refills 5, Tot. Refills 5, Maintenance, 01/05/23 10:05:00 EDT, Route to Pharmacy Electronically, [facility]/pharmacy #[id number], Partial fill upon patientrequest if [...] 2 Refills, Maintenance, 04/21/23 13:33:00 EDT, [facility]/pharmacy #[id number], 160.02, cm, 04/21/23 8:18:00 EDT, Height, 114.36, kg, 04/21/23 8:18:00 EDT, Dry Weight Start Date: 04/21/23 Status: Ordered escitalopram 20 mg oral tablet 0 Refills, Maintenance, 10/17/18 8:58:12 EDT Start Date: 10/17/18 Status: Ordered ferrous sulfate 325 mg oral enteric coated tablet 325 mg, 1, tablet, By Mouth, Daily, with food for anemia label in fijian, # 30 tablet, Refills 2, Tot. Refills 2, Maintenance, 08/11/22 15:48:00 EST, Route to Pharmacy Electronically, [facility]/pharmacy #[id number], Partial fill upon patient request if the pres... Start Date: 08/11/22 Status: Ordered Flovent HFA 110 mcg/inh inhalation aerosol 2 puffs, Inhalation, 2 times a day, for asthma control. rinse mouth and throat after use lable in fijian, # 12 Gm, 11 Refills, Maintenance, 04/21/23 13:34:00 EDT, Aerosol, [facility]/pharmacy #[id number], Partial fill upon patient request [...] at bedtime, for nerve pain label in fijian, # 90 tablet, 1 Refills, Maintenance, 04/21/23 13:33:00 EDT, Tablet, [facility]/pharmacy #[id number], Partial fill upon patient request if the [...] each, 11 Refills, Maintenance, 10/13/22 11:43:00 EDT, [facility], Partial fill upon patient request if [...] 2 hours if response unsatisfactory label in fijian, # 12 tablet, 2 Refills, Soft Stop, 04/21/23 13:33:00 EDT, Tablet, [facility]/pharmacy #[id number], Partial fill upon patient... Start Date: 04/21/23 Status: Ordered metFORMIN 500 mg oral tablet, extended release 2 tablet = 1,000 mg, By Mouth, 2 times a day, for blood sugar dosage adjustment label in fijian, #360 tablet, 0 Refills, Maintenance, 05/09/23 22:48:00 EDT, ER Tablet, [facility]/pharmacy #[id number], Partial fill upon patient request if the prescription is fo... Start Date: 05/09/23 Status: Ordered nabumetone 750 mg oral tablet 1 tablet = 750 mg, By Mouth, 2 times a day, # 28 tablet, 0 Refills, Maintenance, 02/23/23 18:16:00 EDT, Tablet, [facility]/pharmacy #[id number], Partial fill upon patient request if the prescription is for a schedule II opioid drug., 160.02, cm, 01/05/23 10:47:00... Start Date: 02/23/23 Stop Date: 03/09/23 Status: Ordered Nebulizer/Compressor See Instructions, # 1 each, Maintenance, use as needed dx asthma, 06/06/17 17:41:21, Compound Start Date: 06/06/17 Status: Ordered pantoprazole 40 mg oral delayed release tablet See InstructionsGINO TODOS LOS HOOPER, # 90 tablet, 1 [...] scalp apply a thin film label in fijian, # 60 mL, 1 Refills, Maintenance, 04/14/22 14:42:00 EDT, Lotion, [id number], 1 application Topically 2 times a day,Instr:for itchy scalp; apply a thi... Start Date: 04/14/22 Status: Ordered visco heel cups visco heel cups, See Instructions, # 1 pair, Refills 0, Tot. Refills 0, Maintenance, fijian. wear daily in tennis shoes for plantar [...] Care Team Personnel Name: Regina Worrell Position: [facility] PCO Associate Professional Member Role: PCP Address: Address: [address] [place] [address] Care Team Related Persons Name: SHARAD CHAVEZ Address: home [address] [address] Name: NIK PÉREZ Address: home [address] [address]
--- OUTSIDE RECORDS SUMMARY | 2023-08-09 10:40 | XMS_ITS | Continuity of Care Document ---
Author Name Unknown Organization [facility] Address [address] [place] [address]- Care Team Providers Care Archaeology Professor Name Role Phone Passer Regina MA Primary Care Physician Encounter [facility] [place] Date(s): 10/29/19 - 11/05/19 [facility]/[address] [address]- [facility] Attending Physician: Marylou Regalado CNM Allergies, Adverse Reactions, Alerts Substance Reaction [...] mouth and throat after use label in nicaraguan, #60 each, 6 Refills, Maintenance, 10/17/18 8:50:36 [...] puffs, Inhalation, 4 times a day, PRN, nicaraguan label, # 25 Gm, Refills 11, Tot. Refills 11, Maintenance, 10/17/18 8:52:13 EDT, Aerosol, Route to Pharmacy Electronically, [id number], [facility]/pharmacy #[id number], Compound Start Date: 10/17/18 Status: Ordered amitriptyline 25 mg oral tablet 25 mg, 1, tablet, By Mouth, Daily at bedtime, for FERRERA and Fibromyalgia label in nicaraguan, # 90 tablet, Refills 0, Tot. Refills 0, Maintenance, 02/04/19 14:21:26 EDT, Route to Pharmacy Electronically, [id number], [facility]/pharmacy #... Start Date: 02/04/19 Status: Ordered baclofen 20 mg oral tablet 20 mg, 1, tablet, By Mouth, 2 times a day, for muscle tightness and FERRERA label in nicaraguan, # 60 tablet, Refills 4, Tot. Refills 4, Maintenance, 10/17/18 8:52:12 EDT, Route to Pharmacy Electronically, [id number], [facility]/pharmacy #... Start Date: 10/17/18 Status: Ordered [...] for shoulder and knee pain label in nicaraguan labs needed, # 60 capsule, 0 Refills, Maintenance, 11/05/19 8:24:00 EDT, Capsule, [facility]/pharmacy #[id number], 160.02, cm, 06/14/19 11:58:00 EST, Height, 107.2, kg, 05/25... Start Date: 11/05/19 Status: Ordered cetirizine 10 mg oral tablet 1 tablet = 10 mg, By Mouth, Daily, for allergies nicaraguan label, # 90 tablet, 0 Refills, Maintenance, 11/05/19 8:25:00 EDT, Tablet, [facility]/pharmacy #[id number], 160.02, cm, 06/14/19 11:58:00 [...] Daily in AM, for allergies label in nicaraguan, # 16 Gm, 11 Refills, Maintenance, 10/17/18 8:50:36 EDT, [place], 2 sprays Nares, Both Daily in AM,Instr:for allergies; label in nicaraguan Start Date: 10/17/18 Status: Ordered ipratropium nasal 42 mcg/inh spray 2 sprays, Nares, Both, Daily at bedtime, DANISH., # 1 each, 5 Refills, Maintenance, 01/22/18 11:32:47 EDT, 2 sprays Nares, Both Daily at bedtime,x30 days,Instr:DANISH. Start Date: 01/22/18 Stop Date: 07/21/18 Status: Ordered ketoconazole 2% topical shampoo 1 applicator, Topically, Every Monday, Monday and Monday, label in nicaraguan, # 240 mL, 6 Refills,Soft Stop, 10/17/18 8:49:04 EDT, 1 applicator Topically Every Monday, Monday and Monday,Instr:label in nicaraguan Start Date: 10/17/18 Status: Ordered knee brace [...] wash hands thoroughly after application label in nicaraguan, # 50 Gm, 3 Refills, Maintenance, 10/17/18 [...] 10/29/19 10:55:00 EDT, Route to Pharmacy Electronically, [facility]/pharmacy #[id number], 160.02, cm, 06/14/19 11:58:00 EST,Height, 107.2, kg, 06/14/19 11:02:00 EST, Dry Weight Start Date: 10/29/19 Stop Date: 07/25/20 Status: Ordered omeprazole 40 mg oral enteric coated capsule 1 capsule = 40 mg, By Mouth, Daily, for reflux label in nicaraguan, # 90 capsule, 1 Refills, Maintenance, 10/17/18 8:49:03 EDT, EC Capsule Start Date: 10/17/18 Status: Ordered propranolol 80 mg oral capsule, extended release 80 mg, 1, capsule, By Mouth, Daily, # 30 capsule, Refills 0, Maintenance, 10/17/18 8:38:00 EDT Start Date: 10/17/18 Status: Ordered Singulair 10 mg oral tablet 10 mg, 1, tablet, By Mouth, Daily, for allergy and asthma label in nicaraguan, # 90 tablet, Refills 0,Tot. Refills 0, Maintenance, 11/05/19 8:24:00 EDT, Route to Pharmacy Electronically, [facility]/pharmacy #[id number], 160.02, cm, 06/14/19 11:58:00 [...] pair, Refills 0, Tot. Refills 0, Maintenance, nicaraguan. wear daily in tennis shoes for plantar [...]
--- OUTSIDE RECORDS SUMMARY | 2023-08-09 10:40 | XMS_ITS | Continuity of Care Document ---
Author Name Unknown Organization [facility] ter Address [address] [place] [address]- Care Team Providers Care Repairer Kiln Car Name Role Phone Regina Worrell Primary Care Physician [place] [facility] [place] - 05/13/[address] [address] Attending Physician: Regina Worrell Admitting Physician: Regina [...] mouth and throat after use label in malawian, #60 each, 11 Refills, Maintenance, 12/05/19 11:01:00 EDT, [facility]erosol, [id number], 2 puffs Inhalation 2 times a day,Instr:for asthma; rinse mouth... Start Date: 12/05/19 Status: Ordered Aerochamber w/Mask (Large) See Instructions, # 1 each, Maintenance, dx asthma use as needed, 06/28/17 15:17:40, Compound Start Date: 06/28/17 Status: Ordered albuterol 0.083% inhalation solution 3 mL = 2.5 mg, Inhalation, Every 4 hours, PRN for wheezing, # 75 each, 4 Refills, Maintenance, 12/05/19 11:01:00 EDT, Solution, [facility]/pharmacy #[id number], 160.02, cm, 06/14/19 11:58:00 EST, Height, 107.2, kg, 06/14/19 11:02:00 EST, Dry Weight Start Date: 12/05/19 Status: Ordered albuterol CFC free 90 mcg/inh inhalation aerosol 2, puffs, Inhalation, 4 times a day, PRN, malawian label, # 25 Gm, Refills 11, Tot. Refills 11, Maintenance, 12/05/19 11:01:00 EDT, Aerosol, Route to Pharmacy Electronically, [id number], [facility]/pharmacy #[id number], 160.02, cm, ... Start Date: 12/05/19 [...] 11/13/20 13:57:00 EDT, Route to Pharmacy Electronically, [facility]/pharmacy #[id number], 160.02, cm, 11/13/20 13:37:00 EDT, Height, [...] 10 mg, By Mouth, Daily, for allergies malawian label, # 90 tablet, 1 Refills, Maintenance, 12/01/20 18:55:00 EDT, Tablet, [facility]/pharmacy #[id number], 160.02, cm, 11/13/20 13:37:00 EDT, Height, [...] Daily in AM, for allergies label in malawian, # 16 Gm, 5 Refills, Maintenance, 12/14/20 10:44:00 EDT, [place], [facility]/pharmacy #[id number], 2 sprays Nares, Both Daily in AM,Instr:for allergies; label in malawian, 160.02, cm, 11/13/20 13:37:... Start Date: 12/14/20 [...] Daily, for swelling in legs label in malawian, # 30 tablet, Refills 0, Tot. Refills 0, Maintenance, 10/29/20 17:53:00 EDT, Route to Pharmacy Electronically, [facility]/pharmacy #[id number], Partial fill upon patient request if [...] Mouth, Daily, for blood sugar label in malawian with evening meal, # 30 tablet, 1 Refills, Maintenance, 04/02/21 8:58:00 EDT, ER Tablet, [facility]/pharmacy #[id number], Partial fill upon patient request if the prescription is for a schedule... Start Date: 04/02/21 Status: Ordered montelukast 10 mg oral tablet See Instructions, GINO FELIPE TODOS [place], # 90 tablet, Refills 1, Maintenance, Instructions Replace Required Details, Route to Pharmacy Electronically, [facility] STORE [id number], 160.02, cm, 01/27/21 17:35:00 EDT, Height, 113.18, kg, 04/20/20 14:58:00... Start Date: 01/28/21 Status: Ordered nabumetone 750 mg oral tablet 1 tablet = 750 mg, By Mouth, 2 times a day, for pain with food label in malawian, # 60 tablet, 3 Refills, Maintenance, 11/13/20 13:58:00 EDT, Tablet, [facility]/pharmacy #[id number], Partial fill upon patient request if [...] 02/06/20 10:08:00 EDT, Route to Pharmacy Electronically, [facility]/pharmacy #[id number], 160.02, cm, 06/14/19 11:58:00 EST, Height, 107.2, kg, 06/14/19 11:02:00 EST, Dry Weight Start Date: 02/06/20 Stop Date: 01/31/21 Status: Ordered omeprazole 40 mg oral enteric coated capsule See Instructions, TOME BONIFACIO CAPSULA POR VIA ORAL TODOS [place] HOOPER, # 30 capsule, 11 Refills, 11/13/20 13:57:00 EDT, [facility]/pharmacy #[id number], 160.02, cm, 11/13/20 13:37:00 EDT, Height, [...] pair, Refills 0, Tot. Refills 0, Maintenance, malawian. wear daily in tennis shoes for plantar [...]
--- OUTSIDE RECORDS SUMMARY | 2023-08-09 10:40 | XMS_ITS | Continuity of Care Document ---
Author Name Unknown Organization [facility] ter Address [address] [place] [address]- Care Team Providers Care Supervisor Purification Name Role Phone Regina Worrell Primary Care Physician Encounter [facility] [place] Date(s): 10/20/22 - 12/07/[address] [address]- Attending Physician: Regina Worrell Admitting Physician: Regina Worrell Referring Physician: Regina Worrell Allergies, Adverse Reactions, Alerts No Known Allergies Immunizations Given and Recorded Vaccine Date Status Refusal Reason [id number] 12y+ bivalent booster vax 06/23/22 Given influenza virus vaccine, inactivated 05/27/22 Give n influenza virus vaccine, inactivated 05/28/20 Give n influenza virus vaccine, inactivated 06/22/18 Give n influenza virus vaccine, inactivated 06/26/17 Give n influenza virus vaccine, inactivated 08/30/16 Give n influenza virus vaccine, inactivated 05/20/15 Give n SARS-CoV-2 mRNA ([id number]) vax 11/02/21 Recorded SARS-CoV-2 (COVID-19) mRNA BNT-162b2 [...] 6 Refills, Maintenance, 01/11/22 11:04:00 EDT, Solution, [facility]/pharmacy #[id number], 160.02, cm, 11/10/21 8:41:00 EDT, Height, 113.18, kg, 04/20/20 14:58:00 EDT, Dry Weight Start Date: 01/11/22 Status: Ordered albuterol CFC free 90 mcg/inh inhalation aerosol 2, puffs, Inhalation, 4 times a day, PRN, zambian label, # 25 Gm, Refills 11, Tot. Refills 11, Maintenance, 12/23/21 12:20:00 EDT, Aerosol, Route to Pharmacy Electronically, [id number], [facility]/pharmacy #[id number], 160.02, cm, ... Start Date: 12/23/21 Status: Ordered Alcohol pads Alcohol pads, See Instructions, # 100 each, Refills 6, Tot. Refills 6, Maintenance, Dx: T2DM, checkBS 1-2 times daily, 08/11/22 15:47:00 EST, Supply, 160.02, cm, 08/09/22 10:52:00 EST, Height Start Date: 08/11/22 Status: Ordered atorvastatin 20 mg oral tablet 1 tablet = 20 mg, By Mouth, Daily, for cholesterol label in zambian, # 90 tablet, 1 Refills, Maintenance, 10/07/22 8:45:00 EDT, Tablet, [facility]/pharmacy #[id number], Partial fill upon patient request [...] 0 Refills, Maintenance, 07/20/22 15:16:00 EST, Capsule, [facility]/pharmacy #[id number], Partial fill upon patient request [...] pain and inflammation with food label in zambian, # 60 capsule, 3 Refills, Maintenance, 10/07/22 8:44:00 EDT, Capsule, [facility]/pharmacy #[id number], DiscontinueNabumetone, 160.02, cm, 10/07/22 8:16:00 EDT, Height Start Date: 10/07/22 Status: Ordered cetirizine 10 mg oral tablet 1 tablet, By Mouth, Daily, FOR ALLERGIES., # 30 tablet, 11 Refills, 04/14/22 14:32:00 EDT, [facility]/pharmacy #[id number], 160.02, cm, 04/14/22 14:24:00 EDT, [...] a day, for muscle pain label in zambian, # 90 tablet, 2 Refills,Maintenance, 10/07/22 8:45:00 EDT, [facility]/pharmacy #[id number], Discontinue Tizanidine, 160.02, cm, :16:00 EDT, Height Start Date: 10/07/22 Status: Ordered escitalopram 20 mg oral tablet 0 Refills, Maintenance, 10/17/18 8:58:12 EDT Start Date: 10/17/18 Status: Ordered ferrous sulfate 325 mg oral enteric coated tablet 325 mg, 1, tablet, By Mouth, Daily, with food for anemia label in zambian, # 30 tablet, Refills 2, Tot. Refills 2, Maintenance, 08/11/22 15:48:00 EST, Route to Pharmacy Electronically, [facility]/pharmacy #[id number], Partial fill upon patient request [...] at bedtime, for nerve pain label in zambian, # 90 tablet, 1 Refills, Maintenance, 10/07/22 8:48:00 EDT, Tablet, [facility]/pharmacy #[id number], Partial fill upon patient request [...] each, 11 Refills, Maintenance, 10/13/22 11:43:00 EDT, [facility], Partial fill upon patient request if [...] 2 hours if response unsatisfactory label in zambian, # 12 tablet, 2 Refills, Soft Stop, 05/27/22 17:10:00 EDT, Tablet, [facility]/pharmacy #[id number], Partial fill upon patient... Start Date: 05/27/22 Status: Ordered metFORMIN 750 mg oral tablet, extended release 1 tablet = 750 mg, By Mouth, Daily, for diabetes with evening meal label in zambian dosage adjustment, # 90 tablet, 1 Refills, Maintenance, 10/07/22 8:44:00 EDT, ER Tablet, [facility]/pharmacy #[id number], Partial fill upon patient request [...] scalp apply a thin film label in zambian, # 60 mL, 1 Refills, Maintenance, 04/14/22 14:42:00 EDT, Lotion, [facility]/pharmacy #[id number], 1 application Topically 2 times a day,Instr:for itchy scalp; apply a thi... Start Date: 04/14/22 Status: Ordered visco heel cups visco heel cups, See Instructions, # 1 pair, Refills 0, Tot. Refills 0, Maintenance, zambian. wear daily in tennis shoes for plantar [...] Associate Professional Member Role: PCP Address: Address: [address] [place] [id number] Care Team Related Persons Name: PAMELA CHAVEZ Address: home [address] [place] [id number] Name: NIK PÉREZ Address: home [address] [place] [id number]
--- OUTSIDE RECORDS SUMMARY | 2023-08-09 10:40 | XMS_ITS | Continuity of Care Document ---
Author Name Unknown Organization [facility] Address [address] [place] [address]- Care Team Providers Care Hardware Assembler Name Role Phone Passer Regina MA Primary Care Physician Encounter [facility] [place] [facility] [place] [id number] Date(s): 02/23/22 - 03/25/22 [facility]/[address] [address]- Attending Physician: Sara Zaldivar Admitting Physician: Sara [...] mouth and throat after use label in bahamian, #60 each, 11 Refills, Maintenance, 12/23/21 12:20:00 EDT, [facility]erosol, [id number], 2 puffs Inhalation 2 times a day,Instr:for asthma; rinse mouth... Start Date: 12/23/21 Status: Ordered Aerochamber w/Mask (Large) See Instructions, # 1 each, Maintenance, dx asthma use as needed, 06/28/17 15:17:40, Compound Start Date: 06/28/17 Status: Ordered albuterol 0.083% inhalation solution 3 mL = 2.5 mg, Inhalation, Every 4 hours, PRN for wheezing, # 75 each, 6 Refills, Maintenance, 01/11/22 11:04:00 EDT, Solution, [facility]/pharmacy #[id number], 160.02, cm, 11/10/21 8:41:00 EDT, Height, 113.18, kg, 04/20/20 14:58:00 EDT, Dry Weight Start Date: 01/11/22 Status: Ordered albuterol CFC free 90 mcg/inh inhalation aerosol 2, puffs, Inhalation, 4 times a day, PRN, bahamian label, # 25 Gm, Refills 11, Tot. Refills 11, Maintenance, 12/23/21 12:20:00 EDT, Aerosol, Route to Pharmacy Electronically, [id number], [facility]/pharmacy #[id number], 160.02, cm, ... Start Date: 12/23/21 Status: Ordered amitriptyline 100 mg oral tablet TAKE 1 TABLET BY MOUTH EVERYDAY AT BEDTIME Start Date: 11/10/21 Status: Ordered Back seat cushion for Manual [...] 11/13/20 13:57:00 EDT, Route to Pharmacy Electronically, [facility]/pharmacy #[id number], 160.02, cm, 11/13/20 13:37:00 EDT, [...] FOR ALLERGIES., # 30 tablet, 11 Refills, 12/23/21 12:20:00 EDT, [facility]/pharmacy #[id number], 160.02, cm, 11/10/21 8:41:00 EDT, Height, 113.18, kg, 04/20/20 14:58:00 EDT, Dry Weight Start Date: 12/23/21 Status: Ordered Compression Stockings See Instructions, # 1 pair, Maintenance, 15-20mmHg knee length wear daily dx varicose veins, 06/10/15 10:47:06, Compound Start Date: 06/10/15 Status: Ordered escitalopram 20 mg oral tablet 0 Refills, Maintenance, 10/17/18 8:58:12 EDT Start Date: 10/17/18 Status: Ordered fluticasone 50 mcg/inh nasal spray See Instructions, USE 2 SPRAYS IN EACH NOSTRIL IN THE MORNING FOR ALLERGIES, # 16 mL, 11 Refills, 12/23/21 12:20:00 EDT, [facility]/pharmacy #[id number], 30, USE 2 SPRAYS IN EACH NOSTRIL IN THE MORNING FOR ALLERGIES, 160.02, cm, 11/10/21 8:41:00 EDT, Height, 113.1... Start Date: 12/23/21 Status: Ordered Folding Front wheel Walker Folding [...] Daily, for swelling in legs label in bahamian, # 30 tablet, Refills 0, Tot. Refills 0, Maintenance, 10/29/20 17:53:00 EDT, Route to Pharmacy Electronically, [facility]/pharmacy #[id number], Partial fill upon patient [...] WITH MEALS, # 30 tablet, 1 Refills, [facility] STORE [id number], 160.02, cm, 01/27/21 17:35:00 EDT, Height, 113.18, kg, 04/20/20 14:58:00 EDT, Dry Weight Start Date: 06/08/21 Status: Ordered montelukast 10 mg oral tablet See Instructions, GINO FELIPE TODOS [place], # 90 tablet, Refills 1, Tot. Refills 1, 12/24/2211:20:00 EDT, Instructions Replace Required Details, Route to Pharmacy Electronically, [facility]/pharmacy#[id number], 160.02, cm, 11/10/21 8:41:00 EDT, Height, 11... Start Date: 12/23/21 Status: Ordered nabumetone 750 mg oral tablet 1 tablet = 750 mg, By Mouth, 2 times a day, for pain with food label in bahamian, # 60 tablet, 3 Refills, Maintenance, 11/13/20 13:58:00 EDT, Tablet, [facility]/pharmacy #[id number], Partial fill upon patient [...] 02/06/20 10:08:00 EDT, Route to Pharmacy Electronically, [facility]/pharmacy #[id number], 160.02, cm, 06/14/19 11:58:00 EST, Height, 107.2, kg, 06/14/19 11:02:00 EST, Dry Weight Start Date: 02/06/20 Stop Date: 01/31/21 Status: Ordered omeprazole 40 mg oral enteric coated capsule 1 capsule, By Mouth, Daily, # 30 capsule, 2 Refills, [facility] STORE [id number], 160.02, cm, 01/27/21 17:35:00EDT, Height, 113.18, kg, 04/20/20 14:58:00 EDT, Dry Weight Start Date: 10/05/21 Status: Ordered propranolol 120 mg oral capsule, extended release TOME BONIFACIO Cortney KASPER TODOS LOS D EN LA MITCHELL DAVID [...] 9:55:57, Compound Start Date: 04/21/15 Status: Ordered Tessalon Perles 100 mg oral capsule 2 capsule = 200 mg, By Mouth, 3 times a day, PRN Cough, label in bahamian, # 60 capsule, 0 Refills, Maintenance, 12/23/21 12:22:00 EDT, Capsule, [id number], Partial fill upon patient request if the prescription is for a schedule II opioid drug.... Start Date: 12/23/21 Status: Ordered traZODone 100 mg oral tablet 100 mg, 1, tablet, By Mouth, 2 times a day, # 180 tablet, Refills 0, Maintenance, 10/17/18 8:38:05 EDT Start Date: 10/17/18 Status: Ordered visco heel cups visco heel cups, See Instructions, # 1 pair, Refills 0, Tot. Refills 0, Maintenance, bahamian. wear daily in tennis shoes for plantar [...] 04/30/99 Yohan , 07/16/2000, Cesar , 02/22/04 ANA MARÍA Vang Social History Social History Type Response Smoking Status Never (less than 100 in lifetime);Never entered on: 04/20/20 Sex Care Team Personnel Name: Regina Worrell Address: [address] [place] [address]
--- OUTSIDE RECORDS SUMMARY | 2023-08-09 10:40 | XMS_ITS | Continuity of Care Document ---
Author Name Unknown Organization [facility] ter Address [address] [place] [address]- Care Team Providers Care Housekeeper Nanny Name Role Phone Passer Regina MA Primary Care Physician [place] [facility] [place]23 - 07/20/23 [facility] [address] [place] [id number]- Attending Physician: Aleksey Vann MD Admitting Physician: Aleksey Vann MD Allergies, Adverse Reactions, Alerts No Known Allergies Immunizations Given and Recorded Vaccine Date Status Refusal Reason [id number] 12y+ bivalent booster vax 06/23/22 Given influenza virus vaccine, inactivated 05/27/22 Give n influenza virus vaccine, inactivated 05/28/20 Give n influenza virus vaccine, inactivated 06/22/18 Give n influenza virus vaccine, inactivated 06/26/17 Give n influenza virus vaccine, inactivated 08/30/16 Give n influenza virus vaccine, inactivated 05/20/15 Give n SARS-CoV-2 mRNA ([id number]) vax 11/02/21 Recorded SARS-CoV-2 (COVID-19) mRNA BNT-162b2 [...] 6 Refills, Maintenance, 04/21/23 13:33:00 EDT, Solution, [facility]/pharmacy #[id number], 160.02, cm, 04/21/23 8:18:00 EDT, Height, 114.36, kg, 04/21/23 8:18:00 EDT, Dry Weight Start Date: 04/21/23 Status: Ordered albuterol CFC free 90 mcg/inh inhalation aerosol 2, puffs, Inhalation, 4 times a day, PRN, cook islander label, # 25 Gm, Refills 11, Tot. Refills 11, Maintenance, 04/21/23 13:33:00 EDT, Aerosol, Route to Pharmacy Electronically, [id number], [facility]/pharmacy #[id number], 160.02, cm, ... Start Date: 04/21/23 [...] By Mouth, Daily, for cholesterol label in cook islander, # 90 tablet, 1 Refills, Maintenance, 04/21/23 13:33:00 EDT, Tablet, [facility]/pharmacy #[id number], Partial fill upon patient request if [...] 0 Refills, Maintenance, 07/20/22 15:16:00 EST, Capsule, [facility]/pharmacy #[id number], Partial fill upon patient request if [...] 30 tablet, 11 Refills, 04/21/23 13:33:00 EDT, [facility]/pharmacy #[id number], 160.02, cm, 04/21/23 8:18:00 EDT, Height, 114.36, kg, 04/21/23 8:18:00 EDT, Dry Weight Start Date: 04/21/23 Status: Ordered cloNIDine 0.1 mg oral tablet 0.1 mg, 1, tablet, By Mouth, 2 times a day, # 60 tablet, Refills 5, Tot. Refills 5, Maintenance, 01/05/23 10:05:00 EDT, Route to Pharmacy Electronically, [facility]/pharmacy #[id number], Partial fill upon patientrequest if the [...] tablet, 2 Refills, Maintenance, 04/21/23 13:33:00 EDT, [facility]/pharmacy #[id number], 160.02, cm, 04/21/23 8:18:00 EDT, Height, 114.36, kg, 04/21/23 8:18:00 EDT, Dry Weight Start Date: 04/21/23 Status: Ordered escitalopram 20 mg oral tablet 0 Refills, Maintenance, 10/17/18 8:58:12 EDT Start Date: 10/17/18 Status: Ordered ferrous sulfate 325 mg oral enteric coated tablet 325 mg, 1, tablet, By Mouth, Daily, with food for anemia label in cook islander, # 30 tablet, Refills 2, Tot. Refills 2, Maintenance, 08/11/22 15:48:00 EST, Route to Pharmacy Electronically, [facility]/pharmacy #[id number], Partial fill upon patient request if the pres... Start Date: 08/11/22 Status: Ordered Flovent HFA 110 mcg/inh inhalation aerosol 2 puffs, Inhalation, 2 times a day, for asthma control. rinse mouth and throat after use lable in cook islander, # 12 Gm, 11 Refills, Maintenance, 04/21/23 13:34:00 EDT, Aerosol, [facility]/pharmacy #[id number], Partial fill upon patient request if [...] at bedtime, for nerve pain label in cook islander, # 90 tablet, 1 Refills, Maintenance, 04/21/23 13:33:00 EDT, Tablet, [facility]/pharmacy #[id number], Partial fill upon patient request if the [...] each, 11 Refills, Maintenance, 10/13/22 11:43:00 EDT, [facility], Partial fill upon patient request if [...] 2 hours if response unsatisfactory label in cook islander, # 12 tablet, 2 Refills, Soft Stop, 04/21/23 13:33:00 EDT, Tablet, [facility]/pharmacy #[id number], Partial fill upon patient... Start Date: 04/21/23 Status: Ordered metFORMIN 500 mg oral tablet, extended release 2 tablet = 1,000 mg, By Mouth, 2 times a day, for blood sugar dosage adjustment label in cook islander, #360 tablet, 0 Refills, Maintenance, 05/09/23 22:48:00 EDT, ER Tablet, [facility]/pharmacy #[id number], Partial fill upon patient request if the prescription is fo... Start Date: 05/09/23 Status: Ordered nabumetone 750 mg oral tablet 1 tablet = 750 mg, By Mouth, 2 times a day, # 28 tablet, 0 Refills, Maintenance, 02/23/23 18:16:00 EDT, Tablet, [facility]/pharmacy #[id number], Partial fill upon patient request if [...] scalp apply a thin film label in cook islander, # 60 mL, 1 Refills, Maintenance, 04/14/22 14:42:00 EDT, Lotion, [id number], 1 application Topically 2 times a day,Instr:for itchy scalp; apply a thi... Start Date: 04/14/22 Status: Ordered visco heel cups visco heel cups, See Instructions, # 1 pair, Refills 0, Tot. Refills 0, Maintenance, cook islander. wear daily in tennis shoes for plantar [...] Care Team Personnel Name: Regina Worrell Position: [facility] PCO Associate Professional Member Role: PCP Address: Address: [address] [place] [address] Care Team Related Persons Name: SHARAD CHAVEZ Address: home [address] [address] Name: NIK PÉREZ Address: home [address] [address]
--- OUTSIDE RECORDS SUMMARY | 2023-08-09 10:41 | XMS_ITS | Continuity of Care Document ---
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 Start Date: 12/05/19 Status: Ordered Aerochamber w/Mask (Large) See Instructions, # 1 each, Maintenance, dx asthma use as needed, 06/28/17 15:17:40, Compound Start Date: 06/28/17 Status: Ordered albuterol 0.083% inhalation solution 3 mL = 2.5 mg, Inhalation, Every 4 hours, PRN for wheezing, # 75 each, 4 Refills, Maintenance, 12/05/19 11:01:00 EDT, Solution, [facility]/pharmacy #[id number], 160.02, cm, 06/14/19 11:58:00 EST, Height, 107.2, kg, 06/14/19 11:02:00 EST, Dry Weight Start Date: 12/05/19 Status: Ordered albuterol CFC free 90 mcg/inh inhalation aerosol 2, puffs, Inhalation, 4 times a day, PRN, chadian label, # 25 Gm, Refills 11, Tot. Refills 11, Maintenance, 12/05/19 11:01:00 EDT, Aerosol, Route to Pharmacy Electronically, [id number], [facility]/pharmacy #[id number], 160.02, cm, ... Start Date: [...] 08/31/20 8:49:00 EST, Route to Pharmacy Electronically, [facility] STORE [id number], 160.02, cm, 08/27/20 8:49:00 EST, Height, 113.18, [...] and joint pains with food label in chadian, #60 capsule, 2 Refills, Maintenance, 05/28/20 11:58:00 EST, Capsule, [facility]/pharmacy #[id number], 160.02, cm,05/28/20 11:02:00 EST, Height, 113.18, kg, ... Start Date: 05/28/20 Status: Ordered cetirizine 10 mg oral tablet 1 tablet = 10 mg, By Mouth, Daily, for allergies chadian label, # 90 tablet, 1 Refills, Maintenance, 10/09/20 11:23:00 EDT, Tablet, [facility]/pharmacy #[id number], 160.02, cm, 09/21/20 14:20:00 EST, Height, [...] Daily in AM, for allergies label in chadian, # 16 Gm, 11 Refills, Maintenance, 12/05/19 11:01:00 EDT, [place], [facility]/pharmacy #[id number], 2 sprays Nares, Both Daily in AM,Instr:for allergies; label in chadian, 160.02, cm, 06/14/19 11:58... Start Date: 12/05/19 [...] Daily, for swelling in legs label in chadian, # 30 tablet, Refills 0, Tot. Refills 0, Maintenance, 10/29/20 17:53:00 EDT, Route to Pharmacy Electronically, [facility]/pharmacy #[id number], Partial fill upon patient request [...] 02/06/20 10:08:00 EDT, Route to Pharmacy Electronically, [facility]/pharmacy #[id number], 160.02, cm, 06/14/19 11:58:00 EST, Height, 107.2, kg, 06/14/19 11:02:00 EST, Dry Weight Start Date: 02/06/20 Stop Date: 01/31/21 Status: Ordered omeprazole 40 mg oral enteric coated capsule See Instructions, GINO BONIFACIO CAPSULA POR VIA ORAL TODOS [place], # 30 capsule, 3 Refills, Maintenance, [id number], 160.02, cm, 05/28/20 11:02:00 EST, Height, 113.18, [...] Daily, for allergy and asthma label in chadian, # 90 tablet, Refills 3,Tot. Refills 3, Maintenance, 12/05/19 11:01:00 EDT, Route to Pharmacy Electronically, [facility]/pharmacy #[id number], 160.02, cm, 06/14/19 11:58:00 EST, [...] pair, Refills 0, Tot. Refills 0, Maintenance, chadian. wear daily in tennis shoes for plantar [...]
--- OUTSIDE RECORDS SUMMARY | 2023-08-09 10:41 | XMS_ITS | Continuity of Care Document ---
Author Name Unknown Organization [facility] Address [address] [place] [address]- Care Team Providers Care Dough Sheeter Name Role Phone Passer Regina MA Primary Care Physician [place] [facility] [place] 06/07/23 - 07/07/23 [facility] [address]- [place] Allergies, Adverse Reactions, Alerts No Known Allergies Immunizations Given and Recorded Vaccine Date Status Refusal Reason [id number] 12y+ bivalent booster vax 06/23/22 Given influenza virus vaccine, inactivated 05/27/22 Give n influenza virus vaccine, inactivated 05/28/20 Give n influenza virus vaccine, inactivated 06/22/18 Give n influenza virus vaccine, inactivated 06/26/17 Give n influenza virus vaccine, inactivated 08/30/16 Give n influenza virus vaccine, inactivated 05/20/15 Give n SARS-CoV-2 mRNA ([id number]-brmn-[id number]) vax 11/02/21 Recorded SARS-CoV-2 (COVID-19) mRNA BNT-162b2 [...] 6 Refills, Maintenance, 04/21/23 13:33:00 EDT, Solution, [facility]/pharmacy #[id number], 160.02, cm, 04/21/23 8:18:00 EDT, Height, 114.36, kg, 04/21/23 8:18:00 EDT, Dry Weight Start Date: 04/21/23 Status: Ordered albuterol CFC free 90 mcg/inh inhalation aerosol 2, puffs, Inhalation, 4 times a day, PRN, sudanese label, # 25 Gm, Refills 11, Tot. Refills 11, Maintenance, 04/21/23 13:33:00 EDT, Aerosol, Route to Pharmacy Electronically, [id number], [facility]/pharmacy #[id number], 160.02, cm, ... Start Date: 04/21/23 Status: Ordered Alcohol pads Alcohol pads, See Instructions, # 100 each, Refills 6, Tot. Refills 6, Maintenance, Dx: T2DM, checkBS 1-2 times daily, 08/11/22 15:47:00 EST, Supply, 160.02, cm, 08/09/22 10:52:00 EST, Height Start Date: 08/11/22 Status: Ordered amitriptyline 50 mg oral tablet 1 tablet = 50 mg, TOME BONIFACIO [facility] Start Date: 02/10/23 Status: Ordered atorvastatin 20 mg oral tablet 1 tablet = 20 mg, By Mouth, Daily, for cholesterol label in sudanese, # 90 tablet, 1 Refills, Maintenance, 04/21/23 13:33:00 EDT, Tablet, [facility]/pharmacy #[id number], Partial [...] 0 Refills, Maintenance, 07/20/22 15:16:00 EST, Capsule, [facility]/pharmacy #[id number], Partial fill upon [...] 30 tablet, 11 Refills, 04/21/23 13:33:00 EDT, [facility]/pharmacy #[id number], 160.02, cm, 04/21/23 8:18:00 EDT, Height, 114.36, kg, 04/21/23 8:18:00 EDT, Dry Weight Start Date: 04/21/23 Status: Ordered cloNIDine 0.1 mg oral tablet 0.1 mg, 1, tablet, By Mouth, 2 times a day, # 60 tablet, Refills 5, Tot. Refills 5, Maintenance, 01/05/23 10:05:00 EDT, Route to Pharmacy Electronically, [facility]/pharmacy #[id number], Partial fill upon patientrequest if the [...] tablet, 2 Refills, Maintenance, 04/21/23 13:33:00 EDT, [facility]/pharmacy #[id number], 160.02, cm, 04/21/23 8:18:00 EDT, Height, 114.36, kg, 04/21/23 8:18:00 EDT, Dry Weight Start Date: 04/21/23 Status: Ordered escitalopram 20 mg oral tablet 0 Refills, Maintenance, 10/17/18 8:58:12 EDT Start Date: 10/17/18 Status: Ordered ferrous sulfate 325 mg oral enteric coated tablet 325 mg, 1, tablet, By Mouth, Daily, with food for anemia label in sudanese, # 30 tablet, Refills 2, Tot. Refills 2, Maintenance, 08/11/22 15:48:00 EST, Route to Pharmacy Electronically, [facility]/pharmacy #[id number], Partial fill upon patient request if the pres... Start Date: 08/11/22 Status: Ordered Flovent HFA 110 mcg/inh inhalation aerosol 2 puffs, Inhalation, 2 times a day, for asthma control. rinse mouth and throat after use lable in sudanese, # 12 Gm, 11 Refills, Maintenance, 04/21/23 13:34:00 EDT, Aerosol, [facility]/pharmacy #[id number], Partial fill upon [...] at bedtime, for nerve pain label in sudanese, # 90 tablet, 1 Refills, Maintenance, 04/21/23 13:33:00 EDT, Tablet, [facility]/pharmacy #[id number], Partial [...] each, 11 Refills, Maintenance, 10/13/22 11:43:00 EDT, [facility], Partial fill upon patient request if [...] 2 hours if response unsatisfactory label in sudanese, # 12 tablet, 2 Refills, Soft Stop, 04/21/23 13:33:00 EDT, Tablet, [facility]/pharmacy #[id number], Partial fill upon patient... Start Date: 04/21/23 Status: Ordered metFORMIN 500 mg oral tablet, extended release 2 tablet = 1,000 mg, By Mouth, 2 times a day, for blood sugar dosage adjustment label in sudanese, #360 tablet, 0 Refills, Maintenance, 05/09/23 22:48:00 EDT, ER Tablet, [facility]/pharmacy #[id number], Partial fill upon patient request if the prescription is fo... Start Date: 05/09/23 Status: Ordered nabumetone 750 mg oral tablet 1 tablet = 750 mg, By Mouth, 2 times a day, # 28 tablet, 0 Refills, Maintenance, 02/23/23 18:16:00 EDT, Tablet, [facility]/pharmacy #[id number], Partial [...] scalp apply a thin film label in sudanese, # 60 mL, 1 Refills, Maintenance, 04/14/22 14:42:00 EDT, Lotion, [id number], 1 application Topically 2 times a day,Instr:for itchy scalp; apply a thi... Start Date: 04/14/22 Status: Ordered visco heel cups visco heel cups, See Instructions, # 1 pair, Refills 0, Tot. Refills 0, Maintenance, sudanese. wear daily in tennis shoes for plantar [...] Associate Professional Member Role: PCP Address: Address: [address] [place] [address]- Care Team Related Persons Name: PAMELA CHAVEZ Address: home [address] [address] Name: NIK PÉREZ Address: home [address] [address]
--- OUTSIDE RECORDS SUMMARY | 2023-08-09 10:41 | XMS_ITS | Continuity of Care Document ---
Author Name Unknown Organization [facility] Address [address] [place] [id number]- Care Team Providers Care Fixture Maker Name Role Phone Regina Worrell Primary Care Physician Encounter [facility] [place] Date(s): 10/16/20 - 11/21/[address] [address] Attending Physician: Regina Worrell Admitting Physician: Regina [...] mouth and throat after use label in afghan, #60 each, 11 Refills, Maintenance, 12/05/19 11:01:00 EDT, [facility]erosol, [id number], 2 puffs Inhalation 2 times a day,Instr:for asthma; rinse mouth... Start Date: 12/05/19 Status: Ordered Aerochamber w/Mask (Large) See Instructions, # 1 each, Maintenance, dx asthma use as needed, 06/28/17 15:17:40, Compound Start Date: 06/28/17 Status: Ordered albuterol 0.083% inhalation solution 3 mL = 2.5 mg, Inhalation, Every 4 hours, PRN for wheezing, # 75 each, 4 Refills, Maintenance, 12/05/19 11:01:00 EDT, Solution, [facility]/pharmacy #[id number], 160.02, cm, 06/14/19 11:58:00 EST, Height, 107.2, kg, 06/14/19 11:02:00 EST, Dry Weight Start Date: 12/05/19 Status: Ordered albuterol CFC free 90 mcg/inh inhalation aerosol 2, puffs, Inhalation, 4 times a day, PRN, afghan label, # 25 Gm, Refills 11, Tot. Refills 11, Maintenance, 12/05/19 11:01:00 EDT, Aerosol, Route to Pharmacy Electronically, [id number], [facility]/pharmacy #[id number], 160.02, cm, ... [...] 11/13/20 13:57:00 EDT, Route to Pharmacy Electronically, [facility]/pharmacy #[id number], 160.02, cm, 11/13/20 [...] 10 mg, By Mouth, Daily, for allergies afghan label, # 90 tablet, 1 Refills, Maintenance, 10/09/20 11:23:00 EDT, Tablet, [facility]/pharmacy #[id number], 160.02, cm, 09/21/20 14:20:00 EST, Height, [...] Daily in AM, for allergies label in afghan, # 16 Gm, 11 Refills, Maintenance, 12/05/19 11:01:00 EDT, [place], [facility]/pharmacy #[id number], 2 sprays Nares, Both Daily in AM,Instr:for allergies; label in afghan, 160.02, cm, 06/14/19 11:58... Start Date: 12/05/19 [...] Daily, for swelling in legs label in afghan, # 30 tablet, Refills 0, Tot. Refills 0, Maintenance, 10/29/20 17:53:00 EDT, Route to Pharmacy Electronically, [facility]/pharmacy #[id number], Partial fill upon [...] day, for pain with food label in afghan, # 60 tablet, 3 Refills, Maintenance, 11/13/20 13:58:00 EDT, Tablet, [facility]/pharmacy #[id number], Partial fill upon [...] 02/06/20 10:08:00 EDT, Route to Pharmacy Electronically, [facility]/pharmacy #[id number], 160.02, cm, 06/14/19 11:58:00 EST, Height, 107.2, kg, 06/14/19 11:02:00 EST, Dry Weight Start Date: 02/06/20 Stop Date: 01/31/21 Status: Ordered omeprazole 40 mg oral enteric coated capsule See Instructions, TOME BONIFACIO CAPSULA POR VIA ORAL TODOS [place], # 30 capsule, 11 Refills, 11/13/20 13:57:00 EDT, [facility]/pharmacy #[id number], 160.02, cm, 11/13/20 [...] Daily, for allergy and asthma label in afghan, # 90 tablet, Refills 3,Tot. Refills 3, Maintenance, 12/05/19 11:01:00 EDT, Route to Pharmacy Electronically, [facility]/pharmacy #[id number], 160.02, cm, 06/14/19 [...] pair, Refills 0, Tot. Refills 0, Maintenance, afghan. wear daily in tennis shoes for plantar [...]
--- OUTSIDE RECORDS SUMMARY | 2023-08-09 10:41 | XMS_ITS | Continuity of Care Document ---
Author Name Unknown Organization 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/[address] [address]- Allergies, Adverse Reactions, Alerts Substance Reaction Severity [...] mouth and throat after use label in finnish, #60 each, 11 Refills, Maintenance, 12/05/19 11:01:00 EDT, [facility]erosol, [id number], 2 puffs Inhalation 2 times a day,Instr:for asthma; rinse mouth... Start Date: 12/05/19 Status: Ordered Aerochamber w/Mask (Large) See Instructions, # 1 each, Maintenance, dx asthma use as needed, 06/28/17 15:17:40, Compound Start Date: 06/28/17 Status: Ordered albuterol 0.083% inhalation solution 3 mL = 2.5 mg, Inhalation, Every 4 hours, PRN for wheezing, # 75 each, 4 Refills, Maintenance, 12/05/19 11:01:00 EDT, Solution, [facility]/pharmacy #[id number], 160.02, cm, 06/14/19 11:58:00 EST, Height, 107.2, kg, 06/14/19 11:02:00 EST, Dry Weight Start Date: 12/05/19 Status: Ordered albuterol CFC free 90 mcg/inh inhalation aerosol 2, puffs, Inhalation, 4 times a day, PRN, finnish label, # 25 Gm, Refills 11, Tot. Refills 11, Maintenance, 12/05/19 11:01:00 EDT, Aerosol, Route to Pharmacy Electronically, [id number], [facility]/pharmacy #[id number], 160.02, cm, ... Start Date: [...] 08/31/20 8:49:00 EST, Route to Pharmacy Electronically, [facility] STORE [id number], 160.02, cm, 08/27/20 8:49:00 EST, Height, 113.18, [...] and joint pains with food label in finnish, #60 capsule, 2 Refills, Maintenance, 05/28/20 11:58:00 EST, Capsule, [facility]/pharmacy #[id number], 160.02, cm,05/28/20 11:02:00 EST, Height, 113.18, kg, ... Start Date: 05/28/20 Status: Ordered cetirizine 10 mg oral tablet 1 tablet = 10 mg, By Mouth, Daily, for allergies finnish label, # 90 tablet, 1 Refills, Maintenance, 10/09/20 11:23:00 EDT, Tablet, [facility]/pharmacy #[id number], 160.02, cm, 09/21/20 14:20:00 EST, [...] Daily in AM, for allergies label in finnish, # 16 Gm, 11 Refills, Maintenance, 12/05/19 11:01:00 EDT, [place], [facility]/pharmacy #[id number], 2 sprays Nares, Both Daily in AM,Instr:for allergies; label in finnish, 160.02, cm, 06/14/19 11:58... Start Date: 12/05/19 [...] Daily, for swelling in legs label in finnish, # 30 tablet, Refills 0, Tot. Refills 0, Maintenance, 10/09/20 14:23:00 EDT, Route to Pharmacy Electronically, [facility]/pharmacy #[id number], Partial fill upon patient request [...] 02/06/20 10:08:00 EDT, Route to Pharmacy Electronically, [facility]/pharmacy #[id number], 160.02, cm, 06/14/19 11:58:00 EST, Height, 107.2, kg, 06/14/19 11:02:00 EST, Dry Weight Start Date: 02/06/20 Stop Date: 01/31/21 Status: Ordered omeprazole 40 mg oral enteric coated capsule See Instructions, GINO BONIFACIO CAPSULA POR VIA ORAL TODOS [place], # 30 capsule, 3 Refills, Maintenance, [facility], 160.02, cm, 05/28/20 11:02:00 EST, Height, 113.18, [...] Daily, for allergy and asthma label in finnish, # 90 tablet, Refills 3,Tot. Refills 3, Maintenance, 12/05/19 11:01:00 EDT, Route to Pharmacy Electronically, [facility]/pharmacy #[id number], 160.02, cm, 06/14/19 11:58:00 EST, [...] pair, Refills 0, Tot. Refills 0, Maintenance, finnish. wear daily in tennis shoes for plantar [...]
--- OUTSIDE RECORDS SUMMARY | 2023-08-09 10:41 | XMS_ITS | Continuity of Care Document ---
Author Name Unknown Organization [facility] Address [address] [place] [id number]- Care Team Providers Care Database Administration Manager Name Role Phone Regina Worrell Primary Care Physician Encounter [facility] [place] Date(s): 10/18/22 - 11/26/[address] [address] Attending Physician: Regina Worrell Admitting Physician: Regina Worrell Referring Physician: Regina Worrell Allergies, Adverse Reactions, Alerts No Known Allergies Immunizations Given and Recorded Vaccine Date Status Refusal Reason [id number] 12y+ bivalent booster vax 06/23/22 Given influenza virus vaccine, inactivated 05/27/22 Give n influenza virus vaccine, inactivated 05/28/20 Give n influenza virus vaccine, inactivated 06/22/18 Give n influenza virus vaccine, inactivated 06/26/17 Give n influenza virus vaccine, inactivated 08/30/16 Give n influenza virus vaccine, inactivated 05/20/15 Give n SARS-CoV-2 mRNA ([id number]) vax 11/02/21 Recorded SARS-CoV-2 (COVID-19) mRNA [id number] [...] 6 Refills, Maintenance, 01/11/22 11:04:00 EDT, Solution, [facility]/pharmacy #[id number], 160.02, cm, 11/10/21 8:41:00 EDT, Height, 113.18, kg, 04/20/20 14:58:00 EDT, Dry Weight Start Date: 01/11/22 Status: Ordered albuterol CFC free 90 mcg/inh inhalation aerosol 2, puffs, Inhalation, 4 times a day, PRN, gambian label, # 25 Gm, Refills 11, Tot. Refills 11, Maintenance, 12/23/21 12:20:00 EDT, Aerosol, Route to Pharmacy Electronically, [id number], [facility]/pharmacy #[id number], 160.02, cm, ... Start Date: 12/23/21 Status: Ordered Alcohol pads Alcohol pads, See Instructions, # 100 each, Refills 6, Tot. Refills 6, Maintenance, Dx: T2DM, checkBS 1-2 times daily, 08/11/22 15:47:00 EST, Supply, 160.02, cm, 08/09/22 10:52:00 EST, Height Start Date: 08/11/22 Status: Ordered atorvastatin 20 mg oral tablet 1 tablet = 20 mg, By Mouth, Daily, for cholesterol label in gambian, # 90 tablet, 1 Refills, Maintenance, 10/07/22 8:45:00 EDT, Tablet, [facility]/pharmacy #[id number], Partial fill upon patient request [...] 0 Refills, Maintenance, 07/20/22 15:16:00 EST, Capsule, [facility]/pharmacy #[id number], Partial fill upon patient request [...] pain and inflammation with food label in gambian, # 60 capsule, 3 Refills, Maintenance, 10/07/22 8:44:00 EDT, Capsule, [facility]/pharmacy #[id number], DiscontinueNabumetone, 160.02, cm, 10/07/22 8:16:00 EDT, Height Start Date: 10/07/22 Status: Ordered cetirizine 10 mg oral tablet 1 tablet, By Mouth, Daily, FOR ALLERGIES., # 30 tablet, 11 Refills, 04/14/22 14:32:00 EDT, [facility]/pharmacy #[id number], 160.02, cm, 04/14/22 14:24:00 EDT, Height, [...] a day, for muscle pain label in gambian, # 90 tablet, 2 Refills,Maintenance, 10/07/22 8:45:00 EDT, [facility]/pharmacy #[id number], Discontinue Tizanidine, 160.02, cm, 238:16:00 EDT, Height Start Date: 10/07/22 Status: Ordered escitalopram 20 mg oral tablet 0 Refills, Maintenance, 10/17/18 8:58:12 EDT Start Date: 10/17/18 Status: Ordered ferrous sulfate 325 mg oral enteric coated tablet 325 mg, 1, tablet, By Mouth, Daily, with food for anemia label in gambian, # 30 tablet, Refills 2, Tot. Refills 2, Maintenance, 08/11/22 15:48:00 EST, Route to Pharmacy Electronically, [facility]/pharmacy #[id number], Partial fill upon patient request [...] at bedtime, for nerve pain label in gambian, # 90 tablet, 1 Refills, Maintenance, 10/07/22 8:48:00 EDT, Tablet, [facility]/pharmacy #[id number], Partial fill upon patient request [...] each, 11 Refills, Maintenance, 10/13/22 11:43:00 EDT, [facility], Partial fill upon patient request if [...] 2 hours if response unsatisfactory label in gambian, # 12 tablet, 2 Refills, Soft Stop, 05/27/22 17:10:00 EDT, Tablet, [facility]/pharmacy #[id number], Partial fill upon patient... Start Date: 05/27/22 Status: Ordered metFORMIN 750 mg oral tablet, extended release 1 tablet = 750 mg, By Mouth, Daily, for diabetes with evening meal label in gambian dosage adjustment, # 90 tablet, 1 Refills, Maintenance, 10/07/22 8:44:00 EDT, ER Tablet, [facility]/pharmacy #[id number], Partial fill upon patient request [...] scalp apply a thin film label in gambian, # 60 mL, 1 Refills, Maintenance, 04/14/22 14:42:00 EDT, Lotion, [facility]/pharmacy #[id number], 1 application Topically 2 times a day,Instr:for itchy scalp; apply a thi... Start Date: 04/14/22 Status: Ordered visco heel cups visco heel cups, See Instructions, # 1 pair, Refills 0, Tot. Refills 0, Maintenance, gambian. wear daily in tennis shoes for plantar [...] Associate Professional Member Role: PCP Address: Address: [address] [place] [id number] Care Team Related Persons Name: PAMELA CHAVEZ Address: home [address] [place] [id number] Name: NIK PÉREZ Address: home [address] [place] [address]
--- OUTSIDE RECORDS SUMMARY | 2023-08-09 10:41 | XMS_ITS | Continuity of Care Document ---
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 Start Date: 12/05/19 Status: Ordered Aerochamber w/Mask (Large) See Instructions, # 1 each, Maintenance, dx asthma use as needed, 06/28/17 15:17:40, Compound Start Date: 06/28/17 Status: Ordered albuterol 0.083% inhalation solution 3 mL = 2.5 mg, Inhalation, Every 4 hours, PRN for wheezing, # 75 each, 4 Refills, Maintenance, 12/05/19 11:01:00 EDT, Solution, [facility]/pharmacy #[id number], 160.02, cm, 06/14/19 11:58:00 EST, Height, 107.2, kg, 06/14/19 11:02:00 EST, Dry Weight Start Date: 12/05/19 Status: Ordered albuterol CFC free 90 mcg/inh inhalation aerosol 2, puffs, Inhalation, 4 times a day, PRN, malaysian label, # 25 Gm, Refills 11, Tot. Refills 11, Maintenance, 12/05/19 11:01:00 EDT, Aerosol, Route to Pharmacy Electronically, [id number], [facility]/pharmacy #[id number], 160.02, cm, ... Start Date: 12/05/19 Status: Ordered amitriptyline 25 mg oral tablet 25 mg, 1, tablet, By Mouth, Daily at bedtime, for FERRERA and Fibromyalgia label in malaysian, # 90 tablet, Refills 0, Tot. Refills 0, Maintenance, 02/04/19 14:21:26 EDT, Route to Pharmacy Electronically, [id number], [facility]/pharmacy #... Start Date: 02/04/19 Status: Ordered [...] 10 mg, By Mouth, Daily, for allergies malaysian label, # 90 tablet, 1 Refills, Maintenance, 03/23/20 9:46:00 EDT, Tablet, [facility]/pharmacy #[id number], 160.02, cm, 06/14/19 11:58:00 EST, [...] knee pain take with food label in malaysian, # 60 tablet, 2 Refills, Maintenance, 12/05/19 10:58:00 EDT, Tablet, [facility]/pharmacy #[id number], 160.02, cm, 06/14/19 11:58:00 EST, Height, 107.2, kg, 05/25... Start Date: 12/05/19 Status: Ordered escitalopram 20 mg oral tablet 0 Refills, Maintenance, 10/17/18 8:58:12 EDT Start Date: 10/17/18 Status: Ordered Flonase 50 mcg/inh nasal spray 2 sprays, Nares, Both, Daily in AM, for allergies label in malaysian, # 16 Gm, 11 Refills, Maintenance, 12/05/19 11:01:00 EDT, [place], [facility]/pharmacy #[id number], 2 sprays Nares, Both Daily in AM,Instr:for allergies; label in malaysian, 160.02, cm, 06/14/19 11:58... Start Date: 12/05/19 Status: Ordered ipratropium nasal 42 mcg/inh spray 2 sprays, Nares, Both, Daily at bedtime, IVORIAN., # 1 each, 5 Refills, Maintenance, 01/22/18 11:32:47 EDT, 2 sprays Nares, Both Daily at bedtime,x30 days,Instr:IVORIAN. Start Date: 01/22/18 Stop Date: 07/21/18 Status: [...] wash hands thoroughly after application label in malaysian, # 50 Gm, 3 Refills, Maintenance, 10/17/18 8:56:11 EDT, 1 applicator Topically 3 times a day,Instr:for shoulder and knee pain... Start Date: 10/17/18 Status: Ordered nabumetone 750 mg oral tablet 1 tablet = 750 mg, By Mouth, 2 times a day, for back, hip and knee pain take with food label in malaysian, # 60 tablet, 2 Refills, Maintenance, 12/05/19 10:58:00 EDT, Tablet, [facility]/pharmacy #[id number], 160.02, cm, 06/14/19 11:58:00 EST, [...] 02/06/20 10:08:00 EDT, Route to Pharmacy Electronically, [facility]/pharmacy #[id number], 160.02, cm, 06/14/19 11:58:00 EST, Height, 107.2, kg, 06/14/19 11:02:00 EST, Dry Weight Start Date: 02/06/20 Stop Date: 01/31/21 Status: Ordered omeprazole 40 mg oral enteric coated capsule See Instructions, TOME BONIFACIO CAPSULA POR VIA ORAL TODOS [place], # 30 capsule, 3 Refills, Maintenance, [facility] ST[facility] [id number], 160.02, cm, 06/14/19 11:58:00 EST, Height, 107.2, kg, 06/14/19 11:02:00 EST, DryWeight Start Date: 11/18/19 Status: Ordered pregabalin 100 mg oral capsule TOME BONIFACIO C PSULA TOS LOS D AL ACOSTARSE Start Date: 12/05/19 [...] Daily, for allergy and asthma label in malaysian, # 90 tablet, Refills 3,Tot. Refills 3, Maintenance, 12/05/19 11:01:00 EDT, Route to Pharmacy Electronically, [facility]/pharmacy #[id number], 160.02, cm, 06/14/19 11:58:00 EST, [...] scalp apply a thin film label in malaysian, # 60 mL, 1 Refills, Maintenance, 12/05/19 11:03:00 EDT, Lotion, [facility]/pharmacy #[id number], 1 application Topically 2 times a day,Instr:for itchy scalp; apply a thi... Start Date: 12/05/19 Status: Ordered visco heel cups visco heel cups, See Instructions, # 1 pair, Refills 0, Tot. Refills 0, Maintenance, malaysian. wear daily in tennis shoes for plantar [...]
--- OUTSIDE RECORDS SUMMARY | 2023-08-09 10:41 | XMS_ITS | Continuity of Care Document ---
Author Name Unknown Organization [facility] Address Unknown Care Team Providers Care Environmental Professional Name Role Phone Regina Worrell Primary [facility] Phys[id number] - [facility]08[facility] Attending Physician: Regina Worrell Admitting [...] Refills, Maintenance, 12/05/19 11:01:00 EDT, [facility], [id number], 2 puffs Inhalation 2 times a day,Instr:for asthma; rinse mouth... Start Date: 12/05/19 Status: Ordered Aerochamber w/Mask (Large) See Instructions, # 1 each, Maintenance, dx asthma use as needed, 06/28/17 15:17:40, Compound Start Date: 06/28/17 Status: Ordered albuterol 0.083% inhalation solution 3 mL = 2.5 mg, Inhalation, Every 4 hours, PRN for wheezing, # 75 each, 4 Refills, Maintenance, 12/05/19 11:01:00 EDT, Solution, [facility]/pharmacy #[id number], 160.02, cm, 06/14/19 11:58:00 EST, Height, 107.2, kg, 06/14/19 11:02:00 EST, Dry Weight Start Date: 12/05/19 Status: Ordered albuterol CFC free 90 mcg/inh inhalation aerosol 2, puffs, Inhalation, 4 times a day, PRN, malawian label, # 25 Gm, Refills 11, Tot. Refills 11, Maintenance, 12/05/19 11:01:00 EDT, Aerosol, Route to Pharmacy Electronically, [id number], [facility]/pharmacy #[id number], 160.02, cm, ... Start [...] 11/13/20 13:57:00 EDT, Route to Pharmacy Electronically, [facility]/pharmacy #[id number], 160.02, cm, 11/13/20 13:37:00 [...] 10/17/18 8:37:45 EDT, ER Tablet Start Date: 3/27/19 Status: Ordered Cane See Instructions, # 1 each, Maintenance, dx knee pain, 08/19/15 16:38:57, Compound Start Date: 08/19/15 Status: Ordered cetirizine 10 mg oral tablet 1 tablet = 10 mg, By Mouth, Daily, for allergies malawian label, # 90 tablet, 1 Refills, Maintenance, 12/01/20 18:55:00 EDT, Tablet, [facility]/pharmacy #[id number], 160.02, cm, 11/13/20 13:37:00 [...] Gm, 5 Refills, Maintenance, 12/14/20 10:44:00 EDT, [place], [facility]/pharmacy #[id number], 2 sprays Nares, Both Daily [...] 10/29/20 17:53:00 EDT, Route to Pharmacy Electronically, [facility]/pharmacy #[id number], Partial fill upon patient [...] Refills, Maintenance, 04/02/21 8:58:00 EDT, ER Tablet, [facility]/pharmacy #[id number], Partial fill upon patient request if the prescription is for a schedule... Start Date: 04/02/21 Status: Ordered montelukast 10 mg oral tablet See Instructions, GINO FELIPE TODOS [place], # 90 tablet, Refills 1, Maintenance, Instructions Replace Required Details, Route to Pharmacy Electronically, [facility] STORE 22456, 160.02, cm, 01/27/21 17:35:00 EDT, Height, 113.18, kg, 04/20/20 14:58:00... Start Date: 01/28/21 Status: Ordered nabumetone 750 mg oral tablet 1 tablet = 750 mg, By Mouth, 2 times a day, for pain with food label in malawian, # 60 tablet, 3 Refills, Maintenance, 11/13/20 13:58:00 EDT, Tablet, [facility]/pharmacy #[id number], Partial fill upon patient [...] 02/06/20 10:08:00 EDT, Route to Pharmacy Electronically, [facility]/pharmacy #[id number], 160.02, cm, 06/14/19 11:58:00 EST, Height, 107.2, kg, 06/14/19 11:02:00 EST, Dry Weight Start Date: 02/06/20 Stop Date: 01/31/21 Status: Ordered omeprazole 40 mg oral enteric coated capsule See Instructions, TOME BONIFACIO CAPSULA POR VIA ORAL TODOS [place], # 30 capsule, 11 Refills, 11/13/20 13:57:00 EDT, [facility]/pharmacy #[id number], 160.02, cm, 11/13/20 13:37:00 [...]
--- OUTSIDE RECORDS SUMMARY | 2023-08-09 10:41 | XMS_ITS | Continuity of Care Document ---
Author Name Unknown Organization [facility] Address [address] [place] [address]- Care Team Providers Care Author Agent Name Role Phone Passer Rgeina MA Primary Care Physician [place] [facility] [place] 11[place]06/20 [facility]/[address] [address]- Allergies, Adverse Reactions, Alerts Substance Reaction Severity [...] mouth and throat after use label in bolivian, #60 each, 11 Refills, Maintenance, 12/05/19 11:01:00 EDT, [facility], [id number], 2 puffs Inhalation 2 times a day,Instr:for asthma; rinse mouth... Start Date: 12/05/19 Status: Ordered Aerochamber w/Mask (Large) See Instructions, # 1 each, Maintenance, dx asthma use as needed, 06/28/17 15:17:40, Compound Start Date: 06/28/17 Status: Ordered albuterol 0.083% inhalation solution 3 mL = 2.5 mg, Inhalation, Every 4 hours, PRN for wheezing, # 75 each, 4 Refills, Maintenance, 12/05/19 11:01:00 EDT, Solution, [facility]/pharmacy #[id number], 160.02, cm, 06/14/19 11:58:00 EST, Height, 107.2, kg, 06/14/19 11:02:00 EST, Dry Weight Start Date: 12/05/19 Status: Ordered albuterol CFC free 90 mcg/inh inhalation aerosol 2, puffs, Inhalation, 4 times a day, PRN, bolivian label, # 25 Gm, Refills 11, Tot. Refills 11, Maintenance, 12/05/19 11:01:00 EDT, Aerosol, Route to Pharmacy Electronically, [id number], [facility]/pharmacy #[id number], 160.02, cm, ... Start [...] 08/31/20 8:49:00 EST, Route to Pharmacy Electronically, [facility] STORE [id number], 160.02, cm, 08/27/20 8:49:00 EST, Height, 113.18, [...] and joint pains with food label in bolivian, #60 capsule, 2 Refills, Maintenance, 05/28/20 11:58:00 EST, Capsule, [facility]/pharmacy #[id number], 160.02, cm,05/28/20 11:02:00 EST, Height, 113.18, kg, ... Start Date: 05/28/20 Status: Ordered cetirizine 10 mg oral tablet 1 tablet = 10 mg, By Mouth, Daily, for allergies bolivian label, # 90 tablet, 1 Refills, Maintenance, 10/09/20 11:23:00 EDT, Tablet, [facility]/pharmacy #[id number], 160.02, cm, 09/21/20 14:20:00 EST, [...] Daily in AM, for allergies label in bolivian, # 16 Gm, 11 Refills, Maintenance, 12/05/19 11:01:00 EDT, [place], [facility]/pharmacy #[id number], 2 sprays Nares, Both Daily in AM,Instr:for allergies; label in bolivian, 160.02, cm, 06/14/19 11:58... Start Date: 12/05/19 [...] Daily, for swelling in legs label in bolivian, # 30 tablet, Refills 0, Tot. Refills 0, Maintenance, 10/29/20 17:53:00 EDT, Route to Pharmacy Electronically, [facility]/pharmacy #[id number], Partial fill upon patient [...] 02/06/20 10:08:00 EDT, Route to Pharmacy Electronically, [facility]/pharmacy #[id number], 160.02, cm, 06/14/19 11:58:00 EST, Height, 107.2, kg, 06/14/19 11:02:00 EST, Dry Weight Start Date: 02/06/20 Stop Date: 01/31/21 Status: Ordered omeprazole 40 mg oral enteric coated capsule See Instructions, GINO BONIFACIO CAPSULA POR VIA ORAL TODOS [place], # 30 capsule, 3 Refills, Maintenance, [facility], 160.02, cm, 05/28/20 11:02:00 EST, Height, 113.18, [...] Daily, for allergy and asthma label in bolivian, # 90 tablet, Refills 3,Tot. Refills 3, Maintenance, 12/05/19 11:01:00 EDT, Route to Pharmacy Electronically, [facility]/pharmacy #[id number], 160.02, cm, 06/14/19 11:58:00 [...] pair, Refills 0, Tot. Refills 0, Maintenance, bolivian. wear daily in tennis shoes for plantar [...]
--- OUTSIDE RECORDS SUMMARY | 2023-08-09 10:41 | XMS_ITS | Continuity of Care Document ---
Author Name Unknown Organization [facility] Address [address] [place] [address]- Care Team Providers Care Link Trainer Maintenance Worker Name Role Phone Passer Regina MA Primary Care Physician En[place] [facility] [place] Date(s): 09/17/20 - 10/17/20 [facility]/[address] [address]- Allergies, Adverse Reactions, Alerts Substance Reaction Severity [...] mouth and throat after use label in libyan, #60 each, 11 Refills, Maintenance, 12/05/19 11:01:00 EDT, [facility], [id number], 2 puffs Inhalation 2 times a day,Instr:for [...] puffs, Inhalation, 4 times a day, PRN, libyan label, # 25 Gm, Refills 11, Tot. Refills 11, Maintenance, 12/05/19 11:01:00 EDT, Aerosol, Route to Pharmacy Electronically, [id number], [facility]/pharmacy #[id number], 160.02, cm, ... [...] to Pharmacy Electronically, [facility] STORE [address], 160.02, cm, 08/27/20 8:49:00 EST, Height, 113.18, [...] and joint pains with food label in libyan, #60 capsule, 2 Refills, Maintenance, 05/28/20 11:58:00 EST, Capsule, [facility]/pharmacy #[id number], 160.02, cm,05/28/20 11:02:00 EST, Height, 113.18, kg, ... Start Date: 05/28/20 Status: Ordered cetirizine 10 mg oral tablet 1 tablet = 10 mg, By Mouth, Daily, for allergies libyan label, # 90 tablet, 1 Refills, Maintenance, [...] Daily in AM, for allergies label in libyan, # 16 Gm, 11 Refills, Maintenance, 12/05/19 11:01:00 EDT, [place], [facility]/pharmacy #[id number], 2 sprays Nares, Both Daily in AM,Instr:for allergies; label in libyan, 160.02, cm, 06/14/19 11:58... Start Date: 12/05/19 Status: Ordered gabapentin 600 mg oral tablet 0 Refills, Maintenance, 09/28/20 11:31:00 EST, Partial fill upon patient request if the prescription is for a schedule II opioid drug. Start Date: 09/28/20 Status: Ordered hydrochlorothiazide 25 mg oral tablet 25 mg, 1, tablet, By Mouth, Daily, for swelling in legs label in libyan, # 30 tablet, Refills 0, Tot. Refills [...] HOOPER, # 30 capsule, 3 Refills, Maintenance, [facility] 21556, 160.02, cm, 05/28/20 11:02:00 EST, Height, 113.18, [...] Daily, for allergy and asthma label in libyan, # 90 tablet, Refills 3,Tot. Refills 3, [...] pair, Refills 0, Tot. Refills 0, Maintenance, libyan. wear daily in tennis shoes for plantar [...]
--- OUTSIDE RECORDS SUMMARY | 2023-08-09 10:41 | XMS_ITS | Continuity of Care Document ---
Author Name Unknown Organization [facility] Address [address] [place] [address]- Care Team Providers Care Supervisor Cooler Service Name Role Phone Passer Regina MA Primary Care Physician Encounter [facility] [place] R [id number] Date(s): 08/12/22 - 09/21/22 [facility]/[place] [address]- Attending Physician: Not on Staff, Attending MD Allergies, Adverse Reactions, Alerts No Known Allergies Immunizations Given and Recorded Vaccine Date Status Refusal Reason [id number] 12y+ bivalent booster vax 06/23/22 Given influenza virus vaccine, inactivated 05/27/22 Give n influenza virus vaccine, inactivated 05/28/20 Give n influenza virus vaccine, inactivated 06/22/18 Give n influenza virus vaccine, inactivated 06/26/17 Give n influenza virus vaccine, inactivated 08/30/16 Give n influenza virus vaccine, inactivated 05/20/15 Give n SARS-CoV-2 mRNA ([id number]-[id number]-vqlkx) vax 11/02/21 Recorded SARS-CoV-2 (COVID-19) mRNA BNT-162b2 [...] 6 Refills, Maintenance, 01/11/22 11:04:00 EDT, Solution, [facility]/pharmacy #[id number], 160.02, cm, 11/10/21 8:41:00 EDT, Height, 113.18, kg, 04/20/20 14:58:00 EDT, Dry Weight Start Date: 01/11/22 Status: Ordered albuterol CFC free 90 mcg/inh inhalation aerosol 2, puffs, Inhalation, 4 times a day, PRN, central african label, # 25 Gm, Refills 11, Tot. Refills 11, Maintenance, 12/23/21 12:20:00 EDT, Aerosol, Route to Pharmacy Electronically, [id number], [facility]/pharmacy #[id number], 160.02, cm, ... Start Date: [...] 0 Refills, Maintenance, 07/20/22 15:16:00 EST, Capsule, [facility]/pharmacy #[id number], Partial fill upon patient request [...] 30 tablet, 11 Refills, 04/14/22 14:32:00 EDT, [facility]/pharmacy #[id number], 160.02, cm, 04/14/22 14:24:00 EDT, [...] Daily, with food for anemia label in central african, # 30 tablet, Refills 2, Tot. Refills 2, Maintenance, 08/11/22 15:48:00 EST, Route to Pharmacy Electronically, [facility]/pharmacy #[id number], Partial fill upon patient request [...] 2 hours if response unsatisfactory label in central african, # 12 tablet, 2 Refills, Soft Stop, 05/27/22 17:10:00 EDT, Tablet, [facility]/pharmacy #[id number], Partial fill upon patient... Start Date: 05/27/22 Status: Ordered metFORMIN 500 mg oral tablet, extended release 1 tablet = 500 mg, By Mouth, Daily, for Diabetes with evening meal label in central african, # 30 tablet, 2Refills, Maintenance, 08/11/22 15:47:00 EST, ER Tablet, [facility]/pharmacy #[id number], Partial fill upon patient request if the prescription is for a schedule I... Start Date: 08/11/22 Status: Ordered nabumetone 750 mg oral tablet 1 tablet = 750 mg, By Mouth, 2 times a day, for pain with food label in central african, # 60 tablet, 6 Refills, Maintenance, 05/27/22 17:09:00 EDT, Tablet, [facility]/pharmacy #[id number], Partial fill upon patient request if the prescription is for a schedule II opioi... Start Date: 05/27/22 Status: Ordered Nebulizer/Compressor See Instructions, # 1 each, Maintenance, use as needed dx asthma, 06/06/17 17:41:21, Compound Start Date: 06/06/17 Status: Ordered pantoprazole 40 mg oral delayed release tablet See Instructions, TOME BONIFACIO TABLETA POR VIA ORAL TODOS [place], # 30 tablet, 2 Refills, Maintenance, 09/13/22 14:05:00 EST, 160.02, cm, 08/09/22 10:52:00 EST, Height Start Date: 09/13/22 Status: Ordered Pulse Ox Pulse Ox, See [...] PAIN, # 90 capsule, 1 Refills, Maintenance, 08/30/22 9:01:00 EST, [id number], 160.02, cm, 08/09/22 10:52:00 EST, Height Start Date: 08/30/22 Status: Ordered traZODone 100 mg oral tablet 100 mg, 1, tablet, By Mouth, 2 times a day, # 180 tablet, Refills 0, Maintenance, 10/17/18 8:38:05 EDT Start Date: 10/17/18 Status: Ordered triamcinolone 0.025% topical lotion 1 application, Topically, 2 times a day, for itchy scalp apply a thin film label in central african, # 60 mL, 1 Refills, Maintenance, 04/14/22 14:42:00 EDT, Lotion, [facility]/pharmacy #[id number], 1 application Topically 2 times a day,Instr:for itchy scalp; apply a thi... Start Date: 04/14/22 Status: Ordered visco heel cups visco heel cups, See Instructions, # 1 pair, Refills 0, Tot. Refills 0, Maintenance, central african. wear daily in tennis shoes for plantar [...] Associate Professional Member Role: PCP Address: Address: [address] [place] [address]- Care Team Related Persons Name: SHARAD CHAVEZ Address: home [address] [place] [address] Name: NIK PÉREZ Address: home [address] [place] [address]
--- OUTSIDE RECORDS SUMMARY | 2023-08-09 10:41 | XMS_ITS | Continuity of Care Document ---
Author Name Unknown Organization [facility] Address [address] [place] [address]- Care Team Providers Care Divorce Mediator Name Role Phone Passer Regina MA Primary Care Physician [place] [facility] [facility] [id number] Date(s): 08/22/22 - 09/21/22 [facility]/[address] [address]- Attending Physician: Sara Zaldivar Admitting Physician: Sara Zaldivar Referring Physician: AdmSara storm Allergies, Adverse Reactions, Alerts No Known Allergies Immunizations Given and Recorded Vaccine Date Status Refusal Reason [id number] 12y+ bivalent booster vax 06/23/22 Given influenza virus vaccine, inactivated 05/27/22 Give n influenza virus vaccine, inactivated 05/28/20 Give n influenza virus vaccine, inactivated 06/22/18 Give n influenza virus vaccine, inactivated 06/26/17 Give n influenza virus vaccine, inactivated 08/30/16 Give n influenza virus vaccine, inactivated 05/20/15 Give n SARS-CoV-2 mRNA ([id number]-rzuf-ebcwr) vax 11/02/21 Recorded SARS-CoV-2 (COVID-19) mRNA BNT-162b2 [...] 6 Refills, Maintenance, 01/11/22 11:04:00 EDT, Solution, [facility]/pharmacy #[id number], 160.02, cm, 11/10/21 8:41:00 EDT, Height, 113.18, kg, 04/20/20 14:58:00 EDT, Dry Weight Start Date: 01/11/22 Status: Ordered albuterol CFC free 90 mcg/inh inhalation aerosol 2, puffs, Inhalation, 4 times a day, PRN, burmese label, # 25 Gm, Refills 11, Tot. Refills 11, Maintenance, 12/23/21 12:20:00 EDT, Aerosol, Route to Pharmacy Electronically, [id number], [facility]/pharmacy #[id number], 160.02, cm, ... Start Date: 12/23/21 [...] 0 Refills, Maintenance, 07/20/22 15:16:00 EST, Capsule, [facility]/pharmacy #[id number], Partial fill upon patient request if [...] 30 tablet, 11 Refills, 04/14/22 14:32:00 EDT, [facility]/pharmacy #[id number], 160.02, cm, 04/14/22 14:24:00 EDT, Height, [...] Daily, with food for anemia label in burmese, # 30 tablet, Refills 2, Tot. Refills 2, Maintenance, 08/11/22 15:48:00 EST, Route to Pharmacy Electronically, [facility]/pharmacy #[id number], Partial fill upon patient request if [...] 2 hours if response unsatisfactory label in burmese, # 12 tablet, 2 Refills, Soft Stop, 05/27/22 17:10:00 EDT, Tablet, [id number], Partial fill upon patient... Start Date: 05/27/22 Status: Ordered metFORMIN 500 mg oral tablet, extended release 1 tablet = 500 mg, By Mouth, Daily, for Diabetes with evening meal label in burmese, # 30 tablet, 2Refills, Maintenance, 08/11/22 15:47:00 EST, ER Tablet, [facility]/pharmacy #[id number], Partial fill upon patient request if the prescription is for a schedule I... Start Date: 08/11/22 Status: Ordered nabumetone 750 mg oral tablet 1 tablet = 750 mg, By Mouth, 2 times a day, for pain with food label in burmese, # 60 tablet, 6 Refills, Maintenance, 05/27/22 17:09:00 EDT, Tablet, [facility]/pharmacy #[id number], Partial fill upon patient request if the prescription is for a schedule II opioi... Start Date: 05/27/22 Status: Ordered Nebulizer/Compressor See Instructions, # 1 each, Maintenance, use as needed dx asthma, 06/06/17 17:41:21, Compound Start Date: 06/06/17 Status: Ordered pantoprazole 40 mg oral delayed release tablet See Instructions, GINO VALDOVINOS TABLETA POR VIA ORAL TOD[place], [...] Refills, Maintenance, 08/30/22 9:01:00 EST, [id number], 160.02, cm, 08/09/22 10:52:00 EST, Height Start Date: 08/30/22 Status: Ordered traZODone 100 mg oral tablet 100 mg, 1, tablet, By Mouth, 2 times a day, # 180 tablet, Refills 0, Maintenance, 10/17/18 8:38:05 EDT Start Date: 10/17/18 Status: Ordered triamcinolone 0.025% topical lotion 1 application, Topically, 2 times a day, for itchy scalp apply a thin film label in burmese, # 60 mL, 1 Refills, Maintenance, 04/14/22 14:42:00 EDT, Lotion, [facility]/pharmacy #[id number], 1 application Topically 2 times a day,Instr:for itchy scalp; apply a thi... Start Date: 04/14/22 Status: Ordered visco heel cups visco heel cups, See Instructions, # 1 pair, Refills 0, Tot. Refills 0, Maintenance, burmese. wear daily in tennis shoes for plantar [...] Severe obesity Confirmed Active 08/01/95 - Pamela 04/30/99 Yohan , 07/16/2000, Cesar , 02/22/04 Ciera Social History Social History Type Response Smoking Status Never (less than 100 in lifetime);Never entered on: 04/20/20 Sex Note * Event Display: Non BH Lab Results Authored Date: * Event Display: Non BH Lab Results Authored Date: * Event Display: Non BH Lab Results Authored Date: Patient Care team information Care Team Personnel Name: Regina Worrell Position: S PCO Associate Professional Member Role: PCP Address: Address: [address] [place] [address]- Care Team Related Persons Name: PAMELA CHAVEZ Address: home [address] [address] Name: NIK PÉREZ Address: home [address] [address]
--- OUTSIDE RECORDS SUMMARY | 2023-08-09 10:41 | XMS_ITS | Continuity of Care Document ---
Author Name Unknown Organization [facility] [place] [address] [facility] [place] [address]- Care Team Providers Care Virtual Assistant Name Role Phone Passer Regina MA Primary Care Physician Encounter 01/19/23 - 01/26/23 [facility] [address], [address] [place] [address]- Attending Physician: Cherelle Ponce DO Admitting Physician: Cherelle Ponce DO Referring Physician: Cherelle Ponce DO Allergies, Adverse Reactions, Alerts No Known Allergies Immunizations Given and Recorded Vaccine Date Status Refusal Reason [id number] 12y+ bivalent booster vax 06/23/22 Given influenza virus vaccine, inactivated 05/27/22 Give n influenza virus vaccine, inactivated 05/28/20 Give n influenza virus vaccine, inactivated 06/22/18 Give n influenza virus vaccine, inactivated 06/26/17 Give n influenza virus vaccine, inactivated 08/30/16 Give n influenza virus vaccine, inactivated 05/20/15 Give n SARS-CoV-2 mRNA (vrxeuto-qiex-fwwxd) vax 11/02/21 Recorded SARS-CoV-2 (COVID-19) mRNA BNT-162b2 vac 07/10/21 Given SARS-CoV-2 (COVID-19) Ad26 vaccine 12/16/20 Given tetanus/diphtheria/pertussis, acel(Tdap) 10/17/18 Given pneumococcal 23-valent vaccine 10/17/18 Given Medications acetaminophen 500 mg oral tablet 2 tablet = 1,000 mg, By Mouth, Every 6 hours, for 7 days, # 56 tablet, 3 Refills, Acute 02/02/23 10:21:00 EDT, 01/05/23 10:21:00 EDT, [facility]/pharmacy #[id number], Partial fill upon patient request if the prescription is for a schedule II opioid drug., 160.02,... Start Date: 01/05/23 Stop Date: 02/02/23 Status: Ordered Aerochamber w/Mask (Large) See Instructions, # 1 each, Maintenance, dx asthma use as needed, 06/28/17 15:17:40, Compound Start Date: 06/28/17 Status: Ordered albuterol 0.083% inhalation solution 3 mL = 2.5 mg, Inhalation, Every 4 hours, PRN for wheezing, # 75 each, 6 Refills, Maintenance, 01/11/22 11:04:00 EDT, Solution, [facility]/pharmacy #[id number], 160.02, cm, 11/10/21 8:41:00 EDT, Height, 113.18, kg, 04/20/20 14:58:00 EDT, Dry Weight Start Date: 01/11/22 Status: Ordered albuterol CFC free 90 mcg/inh inhalation aerosol 2, puffs, Inhalation, 4 times a day, PRN, wallisian label, # 25 Gm, Refills 11, Tot. Refills 11, Maintenance, 12/23/21 12:20:00 EDT, Aerosol, Route to Pharmacy Electronically, [id number], [facility]/pharmacy #[id number], 160.02, cm, ... [...] By Mouth, Daily, for cholesterol label in wallisian, # 90 tablet, 1 Refills, Maintenance, 10/07/22 8:45:00 EDT, Tablet, [facility]/pharmacy #[id number], Partial fill upon [...] 0 Refills, Maintenance, 07/20/22 15:16:00 EST, Capsule, [facility]/pharmacy #[id number], Partial fill upon [...] pain and inflammation with food label in wallisian, # 60 capsule, 3 Refills, Maintenance, 10/07/22 8:44:00 EDT, Capsule, [id number], DiscontinueNabumetone, 160.02, cm, 10/07/22 8:16:00 EDT, [...] 01/05/23 10:05:00 EDT, Route to Pharmacy Electronically, [facility]/pharmacy #[id number], Partial fill upon patientrequest [...] Refills, Maintenance, 01/04/23 10:54:00 EDT, [id number], 160.02, cm, 10/14/22 11:16:00 EDT, Height Start Date: 01/04/23 Status: Ordered escitalopram 20 mg oral tablet 0 Refills, Maintenance, 10/17/18 8:58:12 EDT Start Date: 10/17/18 Status: Ordered ferrous sulfate 325 mg oral enteric coated tablet 325 mg, 1, tablet, By Mouth, Daily, with food for anemia label in wallisian, # 30 tablet, Refills 2, Tot. Refills 2, Maintenance, 08/11/22 15:48:00 EST, Route to Pharmacy Electronically, [facility]/pharmacy #[id number], Partial fill upon [...] at bedtime, for nerve pain label in wallisian, # 90 tablet, 1 Refills, Maintenance, 10/07/22 8:48:00 EDT, Tablet, [facility]/pharmacy #[id number], Partial fill upon patient request if the [...] each, 11 Refills, Maintenance, 10/13/22 11:43:00 EDT, [facility], Partial fill upon patient request [...] 2 hours if response unsatisfactory label in wallisian, # 12 tablet, 2 Refills, Soft Stop, 05/27/22 17:10:00 EDT, Tablet, [facility]/pharmacy #[id number], Partial fill upon patient... Start Date: 05/27/22 Status: Ordered metFORMIN 750 mg oral tablet, extended release 1 tablet = 750 mg, By Mouth, Daily, for diabetes with evening meal label in wallisian dosage adjustment, # 90 tablet, 1 Refills, Maintenance, 10/07/22 8:44:00 EDT, ER Tablet, [facility]/pharmacy #[id number], Partial fill upon [...] scalp apply a thin film label in wallisian, # 60 mL, 1 Refills, Maintenance, 04/14/22 14:42:00 EDT, Lotion, [id number], 1 application Topically 2 times a day,Instr:for itchy scalp; apply a thi... Start Date: 04/14/22 Status: Ordered visco heel cups visco heel cups, See Instructions, # 1 pair, Refills 0, Tot. Refills 0, Maintenance, wallisian. wear daily in tennis shoes for plantar [...] Care Team Personnel Name: Regina Worrell Position: [facility] PCO Associate Professional Member Role: PCP Address: Address: [address] [place] [address] Care Team Related Persons Name: PAMELA CHAVEZ Address: home [address] [address] Name: NIK PÉREZ Address: home [address] [address]
--- OUTSIDE RECORDS SUMMARY | 2023-08-09 10:41 | XMS_ITS | Continuity of Care Document ---
Author Name Unknown Organization [facility] Address [address] [place] [address]- Care Team Providers Care Paper Box Cutter Name Role Phone Passer Regina MA Primary Care Physician Encounter [facility] Date(s): 11/03/22 - 12/03/22 [facility] [address]- [place] Allergies, Adverse Reactions, Alerts No Known Allergies Immunizations Given and Recorded Vaccine Date Status Refusal Reason [id number] 12y+ bivalent booster vax 06/23/22 Given influenza virus vaccine, inactivated 05/27/22 Give n influenza virus vaccine, inactivated 05/28/20 Give n influenza virus vaccine, inactivated 06/22/18 Give n influenza virus vaccine, inactivated 06/26/17 Give n influenza virus vaccine, inactivated 08/30/16 Give n influenza virus vaccine, inactivated 05/20/15 Give n SARS-CoV-2 mRNA (qbsflgf-abxo-lrexd) vax 11/02/21 Recorded SARS-CoV-2 (COVID-19) mRNA BNT-162b2 [...] 6 Refills, Maintenance, 01/11/22 11:04:00 EDT, Solution, [facility]/pharmacy #[id number], 160.02, cm, 11/10/21 8:41:00 EDT, Height, 113.18, kg, 04/20/20 14:58:00 EDT, Dry Weight Start Date: 01/11/22 Status: Ordered albuterol CFC free 90 mcg/inh inhalation aerosol 2, puffs, Inhalation, 4 times a day, PRN, cape verdean label, # 25 Gm, Refills 11, Tot. Refills 11, Maintenance, 12/23/21 12:20:00 EDT, Aerosol, Route to Pharmacy Electronically, [id number], [facility]/pharmacy #[id number], 160.02, cm, ... Start Date: 12/23/21 Status: Ordered Alcohol pads Alcohol pads, See Instructions, # 100 each, Refills 6, Tot. Refills 6, Maintenance, Dx: T2DM, checkBS 1-2 times daily, 08/11/22 15:47:00 EST, Supply, 160.02, cm, 08/09/22 10:52:00 EST, Height Start Date: 08/11/22 Status: Ordered atorvastatin 20 mg oral tablet 1 tablet = 20 mg, By Mouth, Daily, for cholesterol label in cape verde[place], # 90 tablet, 1 Refills, Maintenance, 10/07/22 8:45:00 EDT, Tablet, [facility]/pharmacy #[id number], Partial fill upon patient request [...] 0 Refills, Maintenance, 07/20/22 15:16:00 EST, Capsule, [facility]/pharmacy #[id number], Partial fill upon patient request [...] pain and inflammation with food label in cape verdean, # 60 capsule, 3 Refills, Maintenance, 10/07/22 [...] a day, for muscle pain label in cape verdean, # 90 tablet, 2 Refills,Maintenance, 10/07/22 8:45:00 EDT, [id number], Discontinue Tizanidine, 160.02, cm, :16:00 EDT, Height Start Date: 10/07/22 Status: Ordered escitalopram 20 mg oral tablet 0 Refills, Maintenance, 10/17/18 8:58:12 EDT Start Date: 10/17/18 Status: Ordered ferrous sulfate 325 mg oral enteric coated tablet 325 mg, 1, tablet, By Mouth, Daily, with food for anemia label in cape verdean, # 30 tablet, Refills 2, Tot. Refills 2, Maintenance, 08/11/22 15:48:00 EST, Route to Pharmacy Electronically, [facility]/pharmacy #[id number], Partial fill upon patient request if the [...] at bedtime, for nerve pain label in cape verdean, # 90 tablet, 1 Refills, Maintenance, 10/07/22 8:48:00 EDT, Tablet, [facility]/pharmacy #[id number], Partial fill upon patient request [...] each, 11 Refills, Maintenance, 10/13/22 11:43:00 EDT, [facility], Partial fill upon patient request if the [...] 2 hours if response unsatisfactory label in cape verdean, # 12 tablet, 2 Refills, Soft Stop, 05/27/22 17:10:00 EDT, Tablet, [facility]/pharmacy #[id number], Partial fill upon patient... Start Date: 05/27/22 Status: Ordered metFORMIN 750 mg oral tablet, extended release 1 tablet = 750 mg, By Mouth, Daily, for diabetes with evening meal label in cape verdean dosage adjustment, # 90 tablet, 1 Refills, Maintenance, 10/07/22 8:44:00 EDT, ER Tablet, [facility]/pharmacy #[id number], Partial fill upon patient request [...] scalp apply a thin film label in cape verdean, # 60 mL, 1 Refills, Maintenance, 04/14/22 14:42:00 EDT, Lotion, [id number], 1 application Topically 2 times a day,Instr:for itchy scalp; apply a thi... Start Date: 04/14/22 Status: Ordered visco heel cups visco heel cups, See Instructions, # 1 pair, Refills 0, Tot. Refills 0, Maintenance, cape verdean. wear daily in tennis shoes for plantar [...] Associate Professional Member Role: PCP Address: Address: [address] [place] [address]- Care Team Related Persons Name: SHARAD CHAVEZ Address: home [address] [address] Name: NIK PÉREZ Address: home [address] [place] [address]
--- OUTSIDE RECORDS SUMMARY | 2023-08-09 10:41 | XMS_ITS | Continuity of Care Document ---
Author Name Unknown Organization [facility] Address [address] [place] [address]- Care Team Providers Care Chief Projectionist Name Role Phone Passer Regina MA Primary Care Physician Encounter [facility] [place] Date(s): 12/13/22 - 01/12/23 [facility]/[address] [address]- [place] Allergies, Adverse Reactions, Alerts No Known Allergies Immunizations Given and Recorded Vaccine Date Status Refusal Reason [id number] 12y+ bivalent booster vax 06/23/22 Given influenza virus vaccine, inactivated 05/27/22 Give n influenza virus vaccine, inactivated 05/28/20 Give n influenza virus vaccine, inactivated 06/22/18 Give n influenza virus vaccine, inactivated 06/26/17 Give n influenza virus vaccine, inactivated 08/30/16 Give n influenza virus vaccine, inactivated 05/20/15 Give n SARS-CoV-2 mRNA ([id number]) vax 11/02/21 Recorded SARS-CoV-2 (COVID-19) mRNA BNT-162b2 vac 07/10/21 Given SARS-CoV-2 (COVID-19) Ad26 vaccine 12/16/20 Given tetanus/diphtheria/pertussis, acel(Tdap) 10/17/18 Given pneumococcal 23-valent vaccine 10/17/18 Given Medications acetaminophen 500 mg oral tablet 2 tablet = 1,000 mg, By Mouth, Every 6 hours, for 7 days, # 56 tablet, 3 Refills, Acute 02/02/23 10:21:00 EDT, 01/05/23 10:21:00 EDT, [facility]/pharmacy #[id number], Partial fill upon patient request if the [...] 6 Refills, Maintenance, 01/11/22 11:04:00 EDT, Solution, [facility]/pharmacy #[id number], 160.02, cm, 11/10/21 8:41:00 EDT, Height, 113.18, kg, 04/20/20 14:58:00 EDT, Dry Weight Start Date: 01/11/22 Status: Ordered albuterol CFC free 90 mcg/inh inhalation aerosol 2, puffs, Inhalation, 4 times a day, PRN, emirati label, # 25 Gm, Refills 11, Tot. Refills 11, Maintenance, 12/23/21 12:20:00 EDT, Aerosol, Route to Pharmacy Electronically, [id number], [facility]/pharmacy #[id number], 160.02, cm, ... Start Date: 12/23/21 Status: Ordered Alcohol pads Alcohol pads, See Instructions, # 100 each, Refills 6, Tot. Refills 6, Maintenance, Dx: T2DM, checkBS 1-2 times daily, 08/11/22 15:47:00 EST, Supply, 160.02, cm, 08/09/22 10:52:00 EST, Height Start Date: 08/11/22 Status: Ordered atorvastatin 20 mg oral tablet 1 tablet = 20 mg, By Mouth, Daily, for cholesterol label in emirati, # 90 tablet, 1 Refills, Maintenance, 10/07/22 8:45:00 EDT, Tablet, [facility]/pharmacy #[id number], Partial fill upon patient request [...] 0 Refills, Maintenance, 07/20/22 15:16:00 EST, Capsule, [facility]/pharmacy #[id number], Partial fill upon patient request [...] pain and inflammation with food label in emirati, # 60 capsule, 3 Refills, Maintenance, 10/07/22 [...] 01/05/23 10:05:00 EDT, Route to Pharmacy Electronically, [facility]/pharmacy #[id number], Partial fill upon patientrequest if [...] tablet, 2 Refills, Maintenance, 01/04/23 10:54:00 EDT, [facility] STORE 51830, 160.02, cm, 10/14/22 11:16:00 EDT, Height Start Date: 01/04/23 Status: Ordered escitalopram 20 mg oral tablet 0 Refills, Maintenance, 10/17/18 8:58:12 EDT Start Date: 10/17/18 Status: Ordered ferrous sulfate 325 mg oral enteric coated tablet 325 mg, 1, tablet, By Mouth, Daily, with food for anemia label in emirati, # 30 tablet, Refills 2, Tot. Refills 2, Maintenance, 08/11/22 15:48:00 EST, Route to Pharmacy Electronically, [facility]/pharmacy #[id number], Partial fill upon patient request [...] at bedtime, for nerve pain label in emirati, # 90 tablet, 1 Refills, Maintenance, 10/07/22 8:48:00 EDT, Tablet, [facility]/pharmacy #[id number], Partial fill upon patient request if the [...] each, 11 Refills, Maintenance, 10/13/22 11:43:00 EDT, [facility], Partial fill upon patient request [...] 2 hours if response unsatisfactory label in emirati, # 12 tablet, 2 Refills, Soft Stop, 05/27/22 17:10:00 EDT, Tablet, [facility]/pharmacy #[id number], Partial fill upon patient... Start Date: 05/27/22 Status: Ordered metFORMIN 750 mg oral tablet, extended release 1 tablet = 750 mg, By Mouth, Daily, for diabetes with evening meal label in emirati dosage adjustment, # 90 tablet, 1 Refills, Maintenance, 10/07/22 8:44:00 EDT, ER Tablet, [facility]/pharmacy #[id number], Partial fill upon patient request [...] scalp apply a thin film label in emirati, # 60 mL, 1 Refills, Maintenance, 04/14/22 [...] Care Team Personnel Name: Regina Worrell Position: [facility] PCO Associate Professional Member Role: PCP Address: Address: [address] [place] [address]- Care Team Related Persons Name: PAMELA CHAVEZ Address: home [address] [address] Name: NIK PÉREZ Address: home [address] [address]
--- OUTSIDE RECORDS SUMMARY | 2023-08-09 10:42 | XMS_ITS | Continuity of Care Document ---
Author Name Unknown Organization [facility] Address [address] [place] [address]- Care Team Providers Care Project Archivist Name Role Phone Passer Regina MA Primary Care Physician [place] [facility] [place] - 12/25/[address] [address]- Discharge Disposition: A-D/C Walkout Attending Physician: Not on Staff, Attending MD Admitting Physician: Not on Staff, Admitting MD Referring Physician: Not on Staff, Referring MD Allergies, Adverse Reactions, Alerts No Known [...] mouth and throat after use label in ecuadorean, #60 each, 11 Refills, Maintenance, 12/23/21 12:20:00 EDT, Aerosol, [id number], 2 puffs Inhalation 2 times a day,Instr:for asthma; rinse mouth... Start Date: 12/23/21 Status: Ordered Aerochamber w/Mask (Large) See Instructions, # 1 each, Maintenance, dx asthma use as needed, 06/28/17 15:17:40, Compound Start Date: 06/28/17 Status: Ordered albuterol 0.083% inhalation solution 3 mL = 2.5 mg, Inhalation, Every 4 hours, PRN for wheezing, # 75 each, 6 Refills, Maintenance, 12/23/21 12:20:00 EDT, Solution, [facility]/pharmacy #[id number], 160.02, cm, 11/10/21 8:41:00 EDT, Height, 113.18, kg, 04/20/20 14:58:00 EDT, Dry Weight Start Date: 12/23/21 Status: Ordered albuterol CFC free 90 mcg/inh inhalation aerosol 2, puffs, Inhalation, 4 times a day, PRN, ecuadorean label, # 25 Gm, Refills 11, Tot. Refills 11, Maintenance, 12/23/21 12:20:00 EDT, Aerosol, Route to Pharmacy Electronically, [id number], [facility]/pharmacy #[id number], 160.02, cm, ... Start Date: 12/23/21 [...] 11/13/20 13:57:00 EDT, Route to Pharmacy Electronically, [facility]/pharmacy #[id number], 160.02, cm, 11/13/20 13:37:00 EDT, Height, [...] 30 tablet, 11 Refills, 12/23/21 12:20:00 EDT, [facility]/pharmacy #[id number], 160.02, cm, 11/10/21 8:41:00 EDT, Height, [...] 16 mL, 11 Refills, 12/23/21 12:20:00 EDT, [facility]/pharmacy #[id number], 30, USE 2 SPRAYS IN EACH [...] Daily, for swelling in legs label in ecuadorean, # 30 tablet, Refills 0, Tot. Refills 0, Maintenance, 10/29/20 17:53:00 EDT, Route to Pharmacy Electronically, [facility]/pharmacy #[id number], Partial fill upon patient request if [...] WITH MEALS, # 30 tablet, 1 Refills, [facility] STORE [id number], 160.02, cm, 01/27/21 17:35:00 EDT, Height, 113.18, kg, 04/20/20 14:58:00 EDT, Dry Weight Start Date: 06/08/21 Status: Ordered montelukast 10 mg oral tablet See Instructions, GINO GRAJEDA LOS HOOPER, # 90 tablet, Refills 1, Tot. Refills 1, 12/24/2211:20:00 EDT, Instructions Replace Required Details, Route to Pharmacy Electronically, [facility]/pharmacy#[id number], 160.02, cm, 11/10/21 8:41:00 EDT, Height, 11... Start Date: 12/23/21 Status: Ordered nabumetone 750 mg oral tablet 1 tablet = 750 mg, By Mouth, 2 times a day, for pain with food label in ecuadorean, # 60 tablet, 3 Refills, Maintenance, 11/13/20 13:58:00 EDT, Tablet, [facility]/pharmacy #[id number], Partial fill upon patient request if [...] 02/06/20 10:08:00 EDT, Route to Pharmacy Electronically, [facility]/pharmacy #[id number], 160.02, cm, 06/14/19 11:58:00 EST, Height, 107.2, kg, 06/14/19 11:02:00 EST, Dry Weight Start Date: 02/06/20 Stop Date: 01/31/21 Status: Ordered omeprazole 40 mg oral enteric coated capsule 1 capsule, By Mouth, Daily, # 30 capsule, 2 Refills, [facility] STORE [id number], 160.02, cm, 01/27/21 17:35:00EDT, Height, 113.18, kg, 04/20/20 14:58:00 EDT, Dry Weight Start Date: 10/05/21 Status: Ordered propranolol 120 mg oral capsule, extended release GINO FUNKDOS LOS D EN LA MITCHELL HERNANDEZ Start Date: 12/05/19 Status: Ordered Pulse Ox [...] times a day, PRN Cough, label in ecuadorean, # 60 capsule, 0 Refills, Maintenance, 12/23/21 12:22:00 EDT, Capsule, [id number], Partial fill upon patient request if the [...] pair, Refills 0, Tot. Refills 0, Maintenance, ecuadorean. wear daily in tennis shoes for plantar [...]
--- OUTSIDE RECORDS SUMMARY | 2023-08-09 10:42 | XMS_ITS | Continuity of Care Document ---
Author Name Unknown Organization [facility] Address [address] [place] [address]- Care Team Providers Care Residential Installer Name Role Phone Regina Worrell Primary [id number]/[address] [address] Attending Physician: Regina Worrell Admitting Physician: [...] mouth and throat after use label in puerto rican, #60 each, 11 Refills, Maintenance, 12/05/19 11:01:00 EDT, [facility]erosol, [id number], 2 puffs Inhalation 2 times a day,Instr:for asthma; rinse mouth... Start Date: 12/05/19 Status: Ordered Aerochamber w/Mask (Large) See Instructions, # 1 each, Maintenance, dx asthma use as needed, 06/28/17 15:17:40, Compound Start Date: 06/28/17 Status: Ordered albuterol 0.083% inhalation solution 3 mL = 2.5 mg, Inhalation, Every 4 hours, PRN for wheezing, # 75 each, 4 Refills, Maintenance, 12/05/19 11:01:00 EDT, Solution, [facility]/pharmacy #[id number], 160.02, cm, 06/14/19 11:58:00 EST, Height, 107.2, kg, 06/14/19 11:02:00 EST, Dry Weight Start Date: 12/05/19 Status: Ordered albuterol CFC free 90 mcg/inh inhalation aerosol 2, puffs, Inhalation, 4 times a day, PRN, puerto rican label, # 25 Gm, Refills 11, Tot. Refills 11, Maintenance, 12/05/19 11:01:00 EDT, Aerosol, Route to Pharmacy Electronically, [id number], [facility]/pharmacy #[id number], 160.02, cm, ... Start Date: 12/05/19 [...] 11/13/20 13:57:00 EDT, Route to Pharmacy Electronically, [facility]/pharmacy #[id number], 160.02, cm, 11/13/20 13:37:00 EDT, Height, [...] 10 mg, By Mouth, Daily, for allergies puerto rican label, # 90 tablet, 1 Refills, Maintenance, 10/09/20 11:23:00 EDT, Tablet, [facility]/pharmacy #[id number], 160.02, cm, 09/21/20 14:20:00 EST, Height, [...] Daily in AM, for allergies label in puerto rican, # 16 Gm, 11 Refills, Maintenance, 12/05/19 11:01:00 EDT, [place], [facility]/pharmacy #[id number], 2 sprays Nares, Both Daily in AM,Instr:for allergies; label in puerto rican, 160.02, cm, 06/14/19 11:58... Start Date: 12/05/19 [...] Daily, for swelling in legs label in puerto rican, # 30 tablet, Refills 0, Tot. Refills 0, Maintenance, 10/29/20 17:53:00 EDT, Route to Pharmacy Electronically, [facility]/pharmacy #[id number], Partial fill upon patient request if [...] day, for pain with food label in puerto rican, # 60 tablet, 3 Refills, Maintenance, 11/13/20 13:58:00 EDT, Tablet, [facility]/pharmacy #[id number], Partial fill upon patient request if [...] 02/06/20 10:08:00 EDT, Route to Pharmacy Electronically, [facility]/pharmacy #[id number], 160.02, cm, 06/14/19 11:58:00 EST, Height, 107.2, kg, 06/14/19 11:02:00 EST, Dry Weight Start Date: 02/06/20 Stop Date: 01/31/21 Status: Ordered omeprazole 40 mg oral enteric coated capsule See Instructions, DEANNAE BONIFACIO CAPSULA POR VIA ORAL TODOS MEGHNA HOOPER, # 30 capsule, 11 Refills, 11/13/20 13:57:00 EDT, [facility]/pharmacy #[id number], 160.02, cm, 11/13/20 13:37:00 EDT, Height, [...] Daily, for allergy and asthma label in puerto rican, # 90 tablet, Refills 3,Tot. Refills 3, Maintenance, 12/05/19 11:01:00 EDT, Route to Pharmacy Electronically, [facility]/pharmacy #[id number], 160.02, cm, 06/14/19 11:58:00 EST, Height, [...] pair, Refills 0, Tot. Refills 0, Maintenance, puerto rican. wear daily in tennis shoes for plantar [...]
--- OUTSIDE RECORDS SUMMARY | 2023-08-09 10:42 | XMS_ITS | Continuity of Care Document ---
Author Name Unknown Organization [facility] Address [address] [place] [address]- Care Team Providers Care Regional Economic Liaison Name Role Phone Passer Regina MA Primary Care Physician Encounter [facility] [place] Date(s): 08/28/20 - 09/27/20 [facility]/[address] [address]- Allergies, Adverse Reactions, Alerts Substance Reaction Severity [...] mouth and throat after use label in hong konger, #60 each, 11 Refills, Maintenance, 12/05/19 11:01:00 EDT, [facility]erosol, [id number], 2 puffs Inhalation 2 times a day,Instr:for asthma; rinse mouth... Start Date: 12/05/19 Status: Ordered Aerochamber w/Mask (Large) See Instructions, # 1 each, Maintenance, dx asthma use as needed, 06/28/17 15:17:40, Compound Start Date: 06/28/17 Status: Ordered albuterol 0.083% inhalation solution 3 mL = 2.5 mg, Inhalation, Every 4 hours, PRN for wheezing, # 75 each, 4 Refills, Maintenance, 12/05/19 11:01:00 EDT, Solution, [facility]/pharmacy #[id number], 160.02, cm, 06/14/19 11:58:00 EST, Height, 107.2, kg, 06/14/19 11:02:00 EST, Dry Weight Start Date: 12/05/19 Status: Ordered albuterol CFC free 90 mcg/inh inhalation aerosol 2, puffs, Inhalation, 4 times a day, PRN, hong konger label, # 25 Gm, Refills 11, Tot. Refills 11, Maintenance, 12/05/19 11:01:00 EDT, Aerosol, Route to Pharmacy Electronically, [id number], [facility]/pharmacy #[id number], 160.02, cm, ... Start Date: 12/05/19 Status: Ordered amitriptyline 25 mg oral tablet 25 mg, 1, tablet, By Mouth, Daily at bedtime, for FERRERA and Fibromyalgia label in hong konger, # 90 tablet, Refills 0, Tot. Refills 0, Maintenance, 02/04/19 14:21:26 EDT, Route to Pharmacy Electronically, [id number], [facility]/pharmacy #... Start Date: 02/04/19 Status: Ordered baclofen 20 mg oral tablet 1, tablet, By Mouth, 2 times a day, FOR MUSCLE PAIN., # 60 tablet, Refills 2, Tot. Refills 0, Maintenance, 08/31/20 8:49:00 EST, Route to Pharmacy Electronically, [facility] STORE 89731, 160.02, cm, 08/27/20 8:49:00 EST, Height, 113.18, [...] and joint pains with food label in hong konger, #60 capsule, 2 Refills, Maintenance, 05/28/20 11:58:00 EST, Capsule, [facility]/pharmacy #[id number], 160.02, cm,05/28/20 11:02:00 EST, Height, 113.18, kg, ... Start Date: 05/28/20 Status: Ordered cetirizine 10 mg oral tablet 1 tablet = 10 mg, By Mouth, Daily, for allergies hong konger label, # 90 tablet, 1 Refills, Maintenance, 03/23/20 9:46:00 EDT, Tablet, [facility]/pharmacy #[id number], 160.02, cm, 06/14/19 [...] Daily in AM, for allergies label in hong konger, # 16 Gm, 11 Refills, Maintenance, 12/05/19 11:01:00 EDT, [place], [facility]/pharmacy #[id number], 2 sprays Nares, Both Daily in AM,Instr:for allergies; label in hong konger, 160.02, cm, 06/14/19 11:58... Start Date: 12/05/19 Status: Ordered ipratropium nasal 42 mcg/inh spray 2 sprays, Nares, Both, Daily at bedtime, FILIPINO., # 1 each, 5 Refills, Maintenance, 01/22/18 11:32:47 EDT, 2 sprays Nares, Both Daily at bedtime,x30 days,Instr:FILIPINO. Start Date: 01/22/18 Stop Date: 07/21/18 Status: Ordered ketoconazole 1% topical shampoo See Instructions, wash hair with 2-3 times per week label in hong konger, # 125 mL, 6 Refills, Maintenance, 05/28/20 11:59:00 EST, [facility]/pharmacy #[id number], wash hair with 2-3 times per week; label in hong konger,160.02, cm, 05/28/20 11:02:00 EST, Height, 113.18,... Start [...] wash hands thoroughly after application label in hong konger, # 50 Gm, 3 Refills, Maintenance, 10/17/18 [...] 02/06/20 10:08:00 EDT, Route to Pharmacy Electronically, [facility]/pharmacy #[id number], 160.02, cm, 06/14/19 11:58:00 EST, Height, 107.2, kg, 06/14/19 11:02:00 EST, Dry Weight Start Date: 02/06/20 Stop Date: 01/31/21 Status: Ordered omeprazole 40 mg oral enteric coated capsule See Instructions, TOME BONIFACIO CAPSULA POR VIA ORAL TODOS [place]OPER, # 30 capsule, 3 Refills, Maintenance, [facility] STORE 75966, 160.02, cm, 05/28/20 11:02:00 EST, Height, 113.18, [...] Daily, for allergy and asthma label in hong konger, # 90 tablet, Refills 3,Tot. Refills 3, Maintenance, 12/05/19 11:01:00 EDT, Route to Pharmacy Electronically, [facility]/pharmacy #[id number], 160.02, cm, 06/14/19 [...] thin film to affected area label in hong konger, # 60 Gm, 1 Refills, Maintenance, 05/28/20 11:59:00 EST, Cream, [facility]/pharmacy #[id number], 1 application Topically 3 times a day,Instr:apply a thin film; to affect... Start Date: 05/28/20 Status: Ordered triamcinolone 0.025% topical lotion 1 application, Topically, 2 times a day, for itchy scalp apply a thin film label in hong konger, # 60 mL, 1 Refills, Maintenance, 12/05/19 11:03:00 EDT, Lotion, [id number], 1 application Topically 2 times a day,Instr:for itchy scalp; apply a thi... Start Date: 12/05/19 Status: Ordered visco heel cups visco heel cups, See Instructions, # 1 pair, Refills 0, Tot. Refills 0, Maintenance, hong konger. wear daily in tennis shoes for plantar [...]
--- OUTSIDE RECORDS SUMMARY | 2023-08-09 10:42 | XMS_ITS | Continuity of Care Document ---
Author Name Unknown Organization [facility] Address [address] [place] [address]- Care Team Providers Care Training Lead Name Role Phone Passer Regina MA Primary Care Physician Encounter [facility] [place] [facility] [id number] Date(s): 07/02/20 - 08/01/20 [facility]/[address] [address]- Attending Physician: AdmSara storm Admitting Physician: AdmtrSara Referring Physician: Admtr, Leonard8 Allergies, Adverse Reactions, Alerts Substance Reaction Severity [...] mouth and throat after use label in martiniquais, #60 each, 11 Refills, Maintenance, 12/05/19 11:01:00 EDT, [facility], [id number], 2 puffs Inhalation 2 times a day,Instr:for [...] Refills, Maintenance, 12/05/19 11:01:00 EDT, Solution, [facility]/pharmacy #[id number], 160.02, cm, 06/14/19 11:58:00 EST, Height, 107.2, kg, 06/14/19 11:02:00 EST, Dry Weight Start Date: 12/05/19 Status: Ordered albuterol CFC free 90 mcg/inh inhalation aerosol 2, puffs, Inhalation, 4 times a day, PRN, martiniquais label, # 25 Gm, Refills 11, Tot. Refills 11, Maintenance, 12/05/19 11:01:00 EDT, Aerosol, Route to Pharmacy Electronically, [id number], [facility]/pharmacy #[id number], 160.02, cm, ... Start Date: 12/05/19 Status: Ordered amitriptyline 25 mg oral tablet 25 mg, 1, tablet, By Mouth, Daily at bedtime, for FERRERA and Fibromyalgia label in martiniquais, # 90 tablet, Refills 0, Tot. Refills 0, Maintenance, 02/04/19 14:21:26 EDT, Route to Pharmacy Electronically, [id number], [facility]/pharmacy #... Start Date: 02/04/19 Status: Ordered baclofen 20 mg oral tablet 20 mg, 1, tablet, By Mouth, 2 times a day, for muscle pain label in martiniquais, # 60 tablet, Refills 2, Tot. Refills 2, Maintenance, 05/28/20 11:58:00 EST, Route to Pharmacy Electronically, [facility]/pharmacy#4471, 160.02, cm, 05/28/20 11:02:00 EST, Height,... Start [...] and joint pains with food label in martiniquais, #60 capsule, 2 Refills, Maintenance, 05/28/20 11:58:00 EST, Capsule, [facility]/pharmacy #[id number], 160.02, cm,05/28/20 11:02:00 EST, Height, 113.18, kg, 04/20/... Start Date: 05/28/20 Status: Ordered cetirizine 10 mg oral tablet 1 tablet = 10 mg, By Mouth, Daily, for allergies martiniquais label, # 90 tablet, 1 Refills, Maintenance, 03/23/20 9:46:00 EDT, Tablet, [facility]/pharmacy #[id number], 160.02, cm, 06/14/19 11:58:00 EST, Height, [...] Daily in AM, for allergies label in martiniquais, # 16 Gm, 11 Refills, Maintenance, 12/05/19 11:01:00 EDT, [place], [facility]/pharmacy #[id number], 2 sprays Nares, Both Daily in AM,Instr:for allergies; label in martiniquais, 160.02, cm, 06/14/19 11:58... Start Date: 12/05/19 Status: Ordered ipratropium nasal 42 mcg/inh spray 2 sprays, Nares, Both, Daily at bedtime, EMIRATI., # 1 each, 5 Refills, Maintenance, 01/22/18 11:32:47 EDT, 2 sprays Nares, Both Daily at bedtime,x30 days,Instr:EMIRATI. Start Date: 01/22/18 Stop Date: 07/21/18 Status: Ordered ketoconazole 1% topical shampoo See Instructions, wash hair with 2-3 times per week label in martiniquais, # 125 mL, 6 Refills, Maintenance, 05/28/20 11:59:00 EST, [facility]/pharmacy #[id number], wash hair with 2-3 times per week; label in martiniquais,160.02, cm, 05/28/20 11:02:00 EST, Height, 113.18,... Start [...] wash hands thoroughly after application label in martiniquais, # 50 Gm, 3 Refills, Maintenance, 10/17/18 [...] 10:08:00 EDT, Route to Pharmacy Electronically, [facility]/pharmacy #[id number], 160.02, cm, 06/14/19 11:58:00 EST, Height, 107.2, kg, 06/14/19 11:02:00 EST, Dry Weight Start Date: 02/06/20 Stop Date: 01/31/21 Status: Ordered omeprazole 40 mg oral enteric coated capsule See Instructions, TOME BONIFACIO CAPSULA POR VIA ORAL TODOS LOS HOOPER, # 30 capsule, 3 Refills, Maintenance, [facility] STORE [address]91, 160.02, cm, 05/28/20 11:02:00 EST, Height, 113.18, [...] Daily, for allergy and asthma label in martiniquais, # 90 tablet, Refills 3,Tot. Refills 3, Maintenance, 12/05/19 11:01:00 EDT, Route to Pharmacy Electronically, [facility]/pharmacy #[id number], 160.02, cm, 06/14/19 11:58:00 EST, Height, [...] thin film to affected area label in martiniquais, # 60 Gm, 1 Refills, Maintenance, 05/28/20 11:59:00 EST, Cream, [facility]/pharmacy #[id number], 1 application Topically 3 times a day,Instr:apply a thin film; to affect... Start Date: 05/28/20 Status: Ordered triamcinolone 0.025% topical lotion 1 application, Topically, 2 times a day, for itchy scalp apply a thin film label in martiniquais, # 60 mL, 1 Refills, Maintenance, 12/05/19 11:03:00 EDT, Lotion, [facility]/pharmacy #[id number], 1 application Topically 2 times a day,Instr:for itchy scalp; apply a thi... Start Date: 12/05/19 Status: Ordered visco heel cups visco heel cups, See Instructions, # 1 pair, Refills 0, Tot. Refills 0, Maintenance, martiniquais. wear daily in tennis shoes for plantar [...]
--- OUTSIDE RECORDS SUMMARY | 2023-08-09 10:42 | XMS_ITS | Continuity of Care Document ---
Author Name Unknown Organization [facility] Address [address] [place] [address]- Care Team Providers Care Microbiology Technician Name Role Phone Passer Regina MA Primary Care Physician Encounter [facility] [place] Date(s): 10/05/20 - 11/04/20 [facility]/[address] [address]- Allergies, Adverse Reactions, Alerts Substance Reaction Severity [...] mouth and throat after use label in guyanese, #60 each, 11 Refills, Maintenance, 12/05/19 11:01:00 EDT, Aerosol, [id number], 2 puffs Inhalation 2 times a day,Instr:for asthma; rinse mouth... Start Date: 12/05/19 Status: Ordered Aerochamber w/Mask (Large) See Instructions, # 1 each, Maintenance, dx asthma use as needed, 06/28/17 15:17:40, Compound Start Date: 06/28/17 Status: Ordered albuterol 0.083% inhalation solution 3 mL = 2.5 mg, Inhalation, Every 4 hours, PRN for wheezing, # 75 each, 4 Refills, Maintenance, 12/05/19 11:01:00 EDT, Solution, [facility]/pharmacy #[id number], 160.02, cm, 06/14/19 11:58:00 EST, Height, 107.2, kg, 06/14/19 11:02:00 EST, Dry Weight Start Date: 12/05/19 Status: Ordered albuterol CFC free 90 mcg/inh inhalation aerosol 2, puffs, Inhalation, 4 times a day, PRN, guyanese label, # 25 Gm, Refills 11, Tot. Refills 11, Maintenance, 12/05/19 11:01:00 EDT, Aerosol, Route to Pharmacy Electronically, [id number], [facility]/pharmacy #[id number], 160.02, cm, ... [...] 08/31/20 8:49:00 EST, Route to Pharmacy Electronically, [facility] STORE [id number], 160.02, cm, 08/27/20 8:49:00 EST, Height, 113.18, [...] and joint pains with food label in guyanese, #60 capsule, 2 Refills, Maintenance, 05/28/20 11:58:00 EST, Capsule, [facility]/pharmacy #[id number], 160.02, cm,05/28/20 11:02:00 EST, Height, 113.18, kg, ... Start Date: 05/28/20 Status: Ordered cetirizine 10 mg oral tablet 1 tablet = 10 mg, By Mouth, Daily, for allergies guyanese label, # 90 tablet, 1 Refills, Maintenance, 10/09/20 11:23:00 EDT, Tablet, [facility]/pharmacy #[id number], 160.02, cm, 09/21/20 14:20:00 [...] Daily in AM, for allergies label in guyanese, # 16 Gm, 11 Refills, Maintenance, 12/05/19 11:01:00 EDT, [place], [facility]/pharmacy #[id number], 2 sprays Nares, Both Daily in AM,Instr:for allergies; label in guyanese, 160.02, cm, 06/14/19 11:58... Start Date: 12/05/19 [...] Daily, for swelling in legs label in guyanese, # 30 tablet, Refills 0, Tot. Refills 0, Maintenance, 10/29/20 17:53:00 EDT, Route to Pharmacy Electronically, [facility]/pharmacy #[id number], Partial fill upon patient [...] 02/06/20 10:08:00 EDT, Route to Pharmacy Electronically, [facility]/pharmacy #[id number], 160.02, cm, 06/14/19 11:58:00 EST, Height, 107.2, kg, 06/14/19 11:02:00 EST, Dry Weight Start Date: 02/06/20 Stop Date: 01/31/21 Status: Ordered omeprazole 40 mg oral enteric coated capsule See Instructions, GINO BONIFACIO CAPSULA POR VIA ORAL [place]OS [place], # 30 capsule, 3 Refills, Maintenance, [facility], 160.02, cm, 05/28/20 11:02:00 EST, Height, 113.18, [...] Daily, for allergy and asthma label in guyanese, # 90 tablet, Refills 3,Tot. Refills 3, Maintenance, 12/05/19 11:01:00 EDT, Route to Pharmacy Electronically, [facility]/pharmacy #[id number], 160.02, cm, 06/14/19 [...] pair, Refills 0, Tot. Refills 0, Maintenance, guyanese. wear daily in tennis shoes for plantar [...]
--- OUTSIDE RECORDS SUMMARY | 2023-08-09 10:42 | XMS_ITS | Continuity of Care Document ---
Author Name Unknown Organization [facility] Address [address] [place] [address]- Care Team Providers Care Risk Consulting Treasury Director Name Role Phone Passer Regina MA Primary Care Physician [place] [facility] [place]16[place] - 05/09/20 [facility] [address] [address]- [facility] Attending Physician: Cherelle Ponce DO Admitting Physician: Cherelle Ponce DO Allergies, Adverse Reactions, Alerts Substance Reaction Severity [...] mouth and throat after use label in macanese, #60 each, 11 Refills, Maintenance, 12/05/19 11:01:00 EDT, [facility]erosol, [id number], 2 puffs Inhalation 2 times a day,Instr:for asthma; rinse mouth... Start Date: 12/05/19 Status: Ordered Aerochamber w/Mask (Large) See Instructions, # 1 each, Maintenance, dx asthma use as needed, 06/28/17 15:17:40, Compound Start Date: 06/28/17 Status: Ordered albuterol 0.083% inhalation solution 3 mL = 2.5 mg, Inhalation, Every 4 hours, PRN for wheezing, # 75 each, 4 Refills, Maintenance, 12/05/19 11:01:00 EDT, Solution, [facility]/pharmacy #[id number], 160.02, cm, 06/14/19 11:58:00 EST, Height, 107.2, kg, 06/14/19 11:02:00 EST, Dry Weight Start Date: 12/05/19 Status: Ordered albuterol CFC free 90 mcg/inh inhalation aerosol 2, puffs, Inhalation, 4 times a day, PRN, macanese label, # 25 Gm, Refills 11, Tot. Refills 11, Maintenance, 12/05/19 11:01:00 EDT, Aerosol, Route to Pharmacy Electronically, [id number], [facility]/pharmacy #[id number], 160.02, cm, ... Start Date: 12/05/19 Status: Ordered amitriptyline 25 mg oral tablet 25 mg, 1, tablet, By Mouth, Daily at bedtime, for FERRERA and Fibromyalgia label in macanese, # 90 tablet, Refills 0, Tot. Refills 0, Maintenance, 02/04/19 14:21:26 EDT, Route to Pharmacy Electronically, [id number], [facility]/pharmacy #... Start Date: 02/04/19 [...] 10 mg, By Mouth, Daily, for allergies macanese label, # 90 tablet, 1 Refills, Maintenance, 03/23/20 9:46:00 EDT, Tablet, [facility]/pharmacy #[id number], 160.02, cm, 06/14/19 [...] knee pain take with food label in macanese, # 60 tablet, 2 Refills, Maintenance, 12/05/19 10:58:00 EDT, Tablet, [facility]/pharmacy #[id number], 160.02, cm, 06/14/19 11:58:00 EST, Height, 107.2, kg, 05/25... Start Date: 12/05/19 Status: Ordered escitalopram 20 mg oral tablet 0 Refills, Maintenance, 10/17/18 8:58:12 EDT Start Date: 10/17/18 Status: Ordered Flonase 50 mcg/inh nasal spray 2 sprays, Nares, Both, Daily in AM, for allergies label in macanese, # 16 Gm, 11 Refills, Maintenance, 12/05/19 11:01:00 EDT, [place], [facility]/pharmacy #[id number], 2 sprays Nares, Both Daily in AM,Instr:for allergies; label in macanese, 160.02, cm, 06/14/19 11:58... Start Date: 12/05/19 Status: Ordered ipratropium nasal 42 mcg/inh spray 2 sprays, Nares, Both, Daily at bedtime, POLISH., # 1 each, 5 Refills, Maintenance, 01/22/18 11:32:47 EDT, 2 sprays Nares, Both Daily at bedtime,x30 days,Instr:POLISH. Start Date: 01/22/18 Stop Date: 07/21/18 Status: [...] wash hands thoroughly after application label in macanese, # 50 Gm, 3 Refills, Maintenance, 10/17/18 8:56:11 EDT, 1 applicator Topically 3 times a day,Instr:for shoulder and knee pain... Start Date: 10/17/18 Status: Ordered nabumetone 750 mg oral tablet 1 tablet = 750 mg, By Mouth, 2 times a day, for back, hip and knee pain take with food label in macanese, # 60 tablet, 2 Refills, Maintenance, 12/05/19 10:58:00 EDT, Tablet, [facility]/pharmacy #[id number], 160.02, cm, 06/14/19 [...] 02/06/20 10:08:00 EDT, Route to Pharmacy Electronically, [facility]/pharmacy #[id number], 160.02, cm, 06/14/19 11:58:00 EST, Height, 107.2, kg, 06/14/19 11:02:00 EST, Dry Weight Start Date: 02/06/20 Stop Date: 01/31/21 Status: Ordered omeprazole 40 mg oral enteric coated capsule See Instructions, TOME BONIFACIO CAPSULA POR VIA ORAL TOD[place], # 30 capsule, 3 Refills, Maintenance, [facility] STORE 25050, 160.02, cm, 06/14/19 11:58:00 EST, Height, 107.2, [...] Daily, for allergy and asthma label in macanese, # 90 tablet, Refills 3,Tot. Refills 3, Maintenance, 12/05/19 11:01:00 EDT, Route to Pharmacy Electronically, [facility]/pharmacy #[id number], 160.02, cm, 06/14/19 [...] scalp apply a thin film label in macanese, # 60 mL, 1 Refills, Maintenance, 12/05/19 11:03:00 EDT, Lotion, [facility]/pharmacy #[id number], 1 application Topically 2 times a day,Instr:for itchy scalp; apply a thi... Start Date: 12/05/19 Status: Ordered visco heel cups visco heel cups, See Instructions, # 1 pair, Refills 0, Tot. Refills 0, Maintenance, macanese. wear daily in tennis shoes for plantar [...]
--- OUTSIDE RECORDS SUMMARY | 2023-08-09 10:42 | XMS_ITS | Continuity of Care Document ---
Author Name Unknown Organization [facility] Address [address] [place] [id number]- Care Team Providers Care Nurseryperson Name Role Phone Passer Regina MA Primary Care Physician Encounter [facility] [place] Date(s): 07/20/22 - 08/19/22 [facility]/[place] [address]- [place] Allergies, Adverse Reactions, Alerts No Known Allergies Immunizations Given and Recorded Vaccine Date Status Refusal Reason [id number] 12y+ bivalent booster vax 06/23/22 Given influenza virus vaccine, inactivated 05/27/22 Give n influenza virus vaccine, inactivated 05/28/20 Give n influenza virus vaccine, inactivated 06/22/18 Give n influenza virus vaccine, inactivated 06/26/17 Give n influenza virus vaccine, inactivated 08/30/16 Give n influenza virus vaccine, inactivated 05/20/15 Give n SARS-CoV-2 mRNA ([id number]) vax 11/02/21 Recorded SARS-CoV-2 (COVID-19) mRNA [id number] [...] 6 Refills, Maintenance, 01/11/22 11:04:00 EDT, Solution, [facility]/pharmacy #[id number], 160.02, cm, 11/10/21 8:41:00 EDT, Height, 113.18, kg, 04/20/20 14:58:00 EDT, Dry Weight Start Date: 01/11/22 Status: Ordered albuterol CFC free 90 mcg/inh inhalation aerosol 2, puffs, Inhalation, 4 times a day, PRN, azerbaijani label, # 25 Gm, Refills 11, Tot. Refills 11, Maintenance, 12/23/21 12:20:00 EDT, Aerosol, Route to Pharmacy Electronically, [id number], [facility]/pharmacy #[id number], 160.02, cm, ... Start Date: [...] 0 Refills, Maintenance, 07/20/22 15:16:00 EST, Capsule, [facility]/pharmacy #[id number], Partial fill upon patient request [...] 30 tablet, 11 Refills, 04/14/22 14:32:00 EDT, [facility]/pharmacy #[id number], 160.02, cm, 04/14/22 14:24:00 EDT, [...] Daily, with food for anemia label in azerbaijani, # 30 tablet, Refills 2, Tot. Refills 2, Maintenance, 08/11/22 15:48:00 EST, Route to Pharmacy Electronically, [facility]/pharmacy #[id number], Partial fill upon patient request [...] 2 hours if response unsatisfactory label in azerbaijani, # 12 tablet, 2 Refills, Soft Stop, 05/27/22 17:10:00 EDT, Tablet, [facility]/pharmacy #[id number], Partial fill upon patient... Start Date: 05/27/22 Status: Ordered metFORMIN 500 mg oral tablet, extended release 1 tablet = 500 mg, By Mouth, Daily, for Diabetes with evening meal label in azerbaijani, # 30 tablet, 2Refills, Maintenance, 08/11/22 15:47:00 EST, ER Tablet, [facility]/pharmacy #[id number], Partial fill upon patient request if the prescription is for a schedule I... Start Date: 08/11/22 Status: Ordered nabumetone 750 mg oral tablet 1 tablet = 750 mg, By Mouth, 2 times a day, for pain with food label in azerbaijani, # 60 tablet, 6 Refills, Maintenance, 05/27/22 17:09:00 EDT, Tablet, [facility]/pharmacy #[id number], Partial fill upon patient request [...] capsule, 1 Refills, Maintenance, 06/27/22 10:16:00 EST, [facility] STORE [id number], 160.02, cm, 05/27/22 17:15:00 EDT, Height Start Date: 06/27/22 Status: Ordered traZODone 100 mg oral tablet 100 mg, 1, tablet, By Mouth, 2 times a day, # 180 tablet, Refills 0, Maintenance, 10/17/18 8:38:05 EDT Start Date: 10/17/18 Status: Ordered triamcinolone 0.025% topical lotion 1 application, Topically, 2 times a day, for itchy scalp apply a thin film label in azerbaijani, # 60 mL, 1 Refills, Maintenance, 04/14/22 14:42:00 EDT, Lotion, [facility]/pharmacy #[id number], 1 application Topically 2 times a day,Instr:for itchy scalp; apply a thi... Start Date: 04/14/22 Status: Ordered visco heel cups visco heel cups, See Instructions, # 1 pair, Refills 0, Tot. Refills 0, Maintenance, azerbaijani. wear daily in tennis shoes for plantar [...] Confirmed Active 08/01/95 - Pamela , 04/30/99 David Almanzar , 07/16/2000Cesar , 02/22/04 Ciera Social History Social History Type Response Smoking Status Never (less than 100 in lifetime);Never entered on: 04/20/20 Sex Patient Care team information Care Team Personnel Name: Regina Worrell Position: [facility] PCO Associate Professional Member Role: PCP Address: Address: [address] [place] [address]- Care Team Related Persons Name: PAMELA CHAVEZ Address: home [address] [address] Name: NIK PÉREZ Address: home [address] [facility] [address] [place] [id number]
--- OUTSIDE RECORDS SUMMARY | 2023-08-09 10:42 | XMS_ITS | Continuity of Care Document ---
Author Name Unknown Organization [facility] Address [address] [place] [address]- Care Team Providers Care Bartender Name Role Phone Regina Worrell Primary Care Physician Encounter [facility] Date(s): 12/03/20 - 02/02/[address] [address] Attending Physician: Regina Worrell Admitting Physician: Regina [...] Refills, Maintenance, 12/05/19 11:01:00 EDT, [facility], [id number], 2 puffs Inhalation 2 times a day,Instr:for asthma; rinse mouth... Start Date: 12/05/19 Status: Ordered Aerochamber w/Mask (Large) See Instructions, # 1 each, Maintenance, dx asthma use as needed, 06/28/17 15:17:40, Compound Start Date: 06/28/17 Status: Ordered albuterol 0.083% inhalation solution 3 mL = 2.5 mg, Inhalation, Every 4 hours, PRN for wheezing, # 75 each, 4 Refills, Maintenance, 12/05/19 11:01:00 EDT, Solution, [facility]/pharmacy #[id number], 160.02, cm, 06/14/19 11:58:00 EST, Height, 107.2, kg, 06/14/19 11:02:00 EST, Dry Weight Start Date: 12/05/19 Status: Ordered albuterol CFC free 90 mcg/inh inhalation aerosol 2, puffs, Inhalation, 4 times a day, PRN, hong konger label, # 25 Gm, Refills 11, Tot. Refills 11, Maintenance, 12/05/19 11:01:00 EDT, Aerosol, Route to Pharmacy Electronically, [id number], [facility]/pharmacy #[id number], 160.02, cm, ... [...] 11/13/20 13:57:00 EDT, Route to Pharmacy Electronically, [facility]/pharmacy #[id number], 160.02, cm, 11/13/20 [...] 1 Refills, Maintenance, 12/01/20 18:55:00 EDT, Tablet, [facility]/pharmacy #[id number], 160.02, cm, 11/13/20 [...] label in hong konger, # 16 Gm, 5 Refills, Maintenance, 12/14/20 10:44:00 EDT, [place], [facility]/pharmacy #[id number], 2 sprays Nares, Both Daily in AM,Instr:for allergies; label in hong konger, 160.02, cm, 11/13/20 13:37:... Start Date: 12/14/20 [...] Daily, for swelling in legs label in hong konger, # 30 tablet, Refills 0, Tot. Refills 0, Maintenance, 10/29/20 17:53:00 EDT, Route to Pharmacy Electronically, [facility]/pharmacy #[id number], Partial fill upon [...] Mouth, Daily, for blood sugar label in hong konger with evening meal, # 30 tablet, 3 Refills, Maintenance, 12/16/20 18:22:00 EDT, ER Tablet, [facility]/pharmacy #[id number], Partial fill upon patient request if the prescription is for a schedul... Start Date: 12/16/20 Status: Ordered montelukast 10 mg oral tablet See Instructions, GINO SOSAA TODOS [place], # 90 tablet, Refills 1, Maintenance, Instructions Replace Required Details, Route to Pharmacy Electronically, [facility] STORE [id number], 160.02, cm, 01/27/21 17:35:00 EDT, Height, 113.18, kg, 04/20/20 14:58:00... Start Date: 01/28/21 Status: Ordered nabumetone 750 mg oral tablet 1 tablet = 750 mg, By Mouth, 2 times a day, for pain with food label in hong konger, # 60 tablet, 3 Refills, Maintenance, 11/13/20 13:58:00 EDT, Tablet, [facility]/pharmacy #[id number], Partial fill upon [...] 02/06/20 10:08:00 EDT, Route to Pharmacy Electronically, [facility]/pharmacy #[id number], 160.02, cm, 06/14/19 11:58:00 EST, Height, 107.2, kg, 06/14/19 11:02:00 EST, Dry Weight Start Date: 02/06/20 Stop Date: 01/31/21 Status: Ordered omeprazole 40 mg oral enteric coated capsule See Instructions, TOME BONIFACIO CAPSULA POR VIA ORAL TODOS [place], # 30 capsule, 11 Refills, 11/13/20 13:57:00 EDT, [facility]/pharmacy #[id number], 160.02, cm, 11/13/20 [...]
--- OUTSIDE RECORDS SUMMARY | 2023-08-09 10:42 | XMS_ITS | Continuity of Care Document ---
Author Name Unknown Organization [facility] Address [address] [place] [id number]- Care Team Providers Care Aircraft Launch And Recovery Technician Name Role Phone Regina Worrell Primary Care Physician Encounter [facility] [place] Date(s): 11/25/21 - 03/25/22 [facility]/[address] [address]- Attending Physician: Regina Worrell Admitting Physician: Regina [...] mouth and throat after use label in northern irish, #60 each, 11 Refills, Maintenance, 12/23/21 12:20:00 EDT, [facility], [id number], 2 puffs Inhalation 2 times a day,Instr:for [...] Refills, Maintenance, 01/11/22 11:04:00 EDT, Solution, [facility]/pharmacy #[id number], 160.02, cm, 11/10/21 8:41:00 EDT, Height, 113.18, kg, 04/20/20 14:58:00 EDT, Dry Weight Start Date: 01/11/22 Status: Ordered albuterol CFC free 90 mcg/inh inhalation aerosol 2, puffs, Inhalation, 4 times a day, PRN, northern irish label, # 25 Gm, Refills 11, Tot. Refills 11, Maintenance, 12/23/21 12:20:00 EDT, Aerosol, Route to Pharmacy Electronically, [id number], [facility]/pharmacy #[id number], 160.02, cm, ... Start Date: 12/23/21 [...] 11/13/20 13:57:00 EDT, Route to Pharmacy Electronically, [facility]/pharmacy #[id number], 160.02, cm, 11/13/20 13:37:00 EDT, Height, [...] 30 tablet, 11 Refills, 12/23/21 12:20:00 EDT, [facility]/pharmacy #[id number], 160.02, cm, 11/10/21 8:41:00 EDT, Height, [...] 16 mL, 11 Refills, 12/23/21 12:20:00 EDT, [facility]/pharmacy #[id number], 30, USE 2 SPRAYS IN EACH [...] Daily, for swelling in legs label in northern irish, # 30 tablet, Refills 0, Tot. Refills 0, Maintenance, 10/29/20 17:53:00 EDT, Route to Pharmacy Electronically, [facility]/pharmacy #[id number], Partial fill upon patient request if [...] WITH MEALS, # 30 tablet, 1 Refills, [facility] STORE 47715, 160.02, cm, 01/27/21 17:35:00 EDT, Height, 113.18, kg, 04/20/20 14:58:00 EDT, Dry Weight Start Date: 06/08/21 Status: Ordered montelukast 10 mg oral tablet See Instructions, GINO FELIPE TODOS [place], # 90 tablet, Refills 1, Tot. Refills 1, 12/24/2211:20:00 EDT, Instructions Replace Required Details, Route to Pharmacy Electronically, [facility]/pharmacy#[id number], 160.02, cm, 11/10/21 8:41:00 EDT, Height, 11... Start Date: 12/23/21 Status: Ordered nabumetone 750 mg oral tablet 1 tablet = 750 mg, By Mouth, 2 times a day, for pain with food label in northern irish, # 60 tablet, 3 Refills, Maintenance, 11/13/20 13:58:00 EDT, Tablet, [facility]/pharmacy #[id number], Partial fill upon patient request if [...] 10:08:00 EDT, Route to Pharmacy Electronically, [facility]/pharmacy #[id number], 160.02, cm, 06/14/19 11:58:00 EST, Height, 107.2, kg, 06/14/19 11:02:00 EST, Dry Weight Start Date: 02/06/20 Stop Date: 01/31/21 Status: Ordered omeprazole 40 mg oral enteric coated capsule 1 capsule, By Mouth, Daily, # 30 capsule, 2 Refills, [facility] STORE 66193, 160.02, cm, 01/27/21 17:35:00EDT, Height, 113.18, kg, 04/20/20 14:58:00 EDT, Dry Weight Start Date: 10/05/21 Status: Ordered propranolol 120 mg oral capsule, extended release GINO KASPER TODOS LOS D EN LA MITCHELL HERNANDEZ Start [...] times a day, PRN Cough, label in northern irish, # 60 capsule, 0 Refills, Maintenance, 12/23/21 12:22:00 EDT, Capsule, [id number], Partial fill upon patient request if the [...] pair, Refills 0, Tot. Refills 0, Maintenance, northern irish. wear daily in tennis shoes for [...] Care Team Personnel Name: Regina Worrell Address: [address] [place] [address]
--- OUTSIDE RECORDS SUMMARY | 2023-08-09 10:42 | XMS_ITS | Continuity of Care Document ---
Author Name Unknown Organization [facility] Address [address] [place] [phone]- Care Team Providers Care All Purpose Clerk Name Role Phone Passer Regina MA Primary Care Physician En[place] [facility] Date(s): 01/05/23 - 02/04/[address] [address] Attending Physician: Sara Zaldivar Admitting Physician: Sara Zaldivar Referring Physician: AdmtrSara Allergies, Adverse Reactions, Alerts No Known Allergies Immunizations Given and Recorded Vaccine Date Status Refusal Reason [id number] 12y+ bivalent booster vax 06/23/22 Given influenza virus vaccine, inactivated 05/27/22 Give n influenza virus vaccine, inactivated 05/28/20 Give n influenza virus vaccine, inactivated 06/22/18 Give n influenza virus vaccine, inactivated 06/26/17 Give n influenza virus vaccine, inactivated 08/30/16 Give n influenza virus vaccine, inactivated 05/20/15 Give n SARS-CoV-2 mRNA (kshjsam-snvn-aursp) vax 11/02/21 Recorded SARS-CoV-2 (COVID-19) mRNA BNT-162b2 [...] 6 Refills, Maintenance, 01/11/22 11:04:00 EDT, Solution, [facility]/pharmacy #[id number], 160.02, cm, 11/10/21 8:41:00 EDT, Height, 113.18, kg, 04/20/20 14:58:00 EDT, Dry Weight Start Date: 01/11/22 Status: Ordered albuterol CFC free 90 mcg/inh inhalation aerosol 2, puffs, Inhalation, 4 times a day, PRN, croatian label, # 25 Gm, Refills 11, Tot. Refills 11, Maintenance, 12/23/21 12:20:00 EDT, Aerosol, Route to Pharmacy Electronically, [id number], [facility]/pharmacy #[id number], [...] By Mouth, Daily, for cholesterol label in croatian, # 90 tablet, 1 Refills, Maintenance, 10/07/22 8:45:00 EDT, Tablet, [facility] [...] 0 Refills, Maintenance, 07/20/22 15:16:00 EST, Capsule, [facility]/pharmacy [...] pain and inflammation with food label in croatian, # 60 capsule, 3 Refills, Maintenance, 10/07/22 8:44:00 EDT, Capsule, [facility]/pharmacy #[id number], DiscontinueNabumetone, 160.02, cm, 10/07/22 8:16:00 EDT, Height Start Date: 10/07/22 Status: Ordered cetirizine 10 mg oral tablet 1 tablet, By Mouth, Daily, FOR ALLERGIES., # 30 tablet, 11 Refills, 04/14/22 14:32:00 EDT, [facility]/pharmacy #[id number], 160.02, cm, 04/14/22 14:24:00 EDT, Height, 113.18, kg, 04/20/20 14:58:00 EDT, Dry Weight Start Date: 04/14/22 Status: Ordered cloNIDine 0.1 mg oral tablet 0.1 mg, 1, tablet, By Mouth, 2 times a day, # 60 tablet, Refills 5, Tot. Refills 5, Maintenance, 01/05/23 10:05:00 EDT, Route to Pharmacy Electronically, [facility]/pharmacy #[id number], Partial fill upon patientrequest if the [...] Refills, Maintenance, 01/04/23 10:54:00 EDT, [id number], 160.02, cm, 10/14/22 11:16:00 EDT, Height Start Date: 01/04/23 Status: Ordered escitalopram 20 mg oral tablet 0 Refills, Maintenance, 10/17/18 8:58:12 EDT Start Date: 10/17/18 Status: Ordered ferrous sulfate 325 mg oral enteric coated tablet 325 mg, 1, tablet, By Mouth, Daily, with food for anemia label in croatian, # 30 tablet, Refills 2, Tot. Refills 2, Maintenance, 08/11/22 15:48:00 EST, Route to Pharmacy Electronically, [facility]/pharmacy #[id number], Partial fill upon patient request if the [...] at bedtime, for nerve pain label in croatian, # 90 tablet, 1 Refills, Maintenance, 10/07/22 8:48:00 EDT, Tablet, [facility]/pharmacy #[id number], Partial fill upon patient request if the [...] each, 11 Refills, Maintenance, 10/13/22 11:43:00 EDT, [facility], Partial fill upon patient request if the [...] 2 hours if response unsatisfactory label in croatian, # 12 tablet, 2 Refills, Soft Stop, 05/27/22 17:10:00 EDT, Tablet, [facility]/pharmacy #[id number], Partial fill upon patient... Start Date: 05/27/22 Status: Ordered metFORMIN 750 mg oral tablet, extended release 1 tablet = 750 mg, By Mouth, Daily, for diabetes with evening meal label in croatian dosage adjustment, # 90 tablet, 1 Refills, Maintenance, 10/07/22 8:44:00 EDT, ER Tablet, [facility]/pharmacy [...] scalp apply a thin film label in croatian, # 60 mL, 1 Refills, Maintenance, 04/14/22 14:42:00 EDT, Lotion, [id number], 1 application Topically 2 times a day,Instr:for itchy scalp; apply a thi... Start Date: 04/14/22 Status: Ordered visco heel cups visco heel cups, See Instructions, # 1 pair, Refills 0, Tot. Refills 0, Maintenance, croatian. wear daily in tennis shoes for plantar [...] Associate Professional Member Role: PCP Address: Address: [address] [place] [address]- Care Team Related Persons Name: PAMELA CHAVEZ Address: home [address] [place] [address] Name: NIK PÉREZ Address: home [address] [place] [address]
--- OUTSIDE RECORDS SUMMARY | 2023-08-09 10:42 | XMS_ITS | Continuity of Care Document ---
Author Name Unknown Organization [facility] Address [address] [place] [address]- Care Team Providers Care Fruit Grower Name Role Phone Regina Worrell Primary Care Physician Encounter [facility] R [id number] Date(s): 06/03/22 - 07/21/22 [facility] [address] [place] [address]- Attending Physician: Jarad Odell MD Admitting Physician: Jarad Odell MD Referring Physician: Regina Worrell Allergies, Adverse Reactions, Alerts No Known Allergies Immunizations Given and Recorded Vaccine Date Status Refusal Reason [id number] 12y+ bivalent booster vax 06/23/22 Given influenza virus vaccine, inactivated 05/27/22 Give n influenza virus vaccine, inactivated 05/28/20 Give n influenza virus vaccine, inactivated 06/22/18 Give n influenza virus vaccine, inactivated 06/26/17 Give n influenza virus vaccine, inactivated 08/30/16 Give n influenza virus vaccine, inactivated 05/20/15 Give n SARS-CoV-2 mRNA (jlkloxj-gbhg-bevol) vax 11/02/21 Recorded SARS-CoV-2 (COVID-19) mRNA BNT-162b2 [...] Refills, Maintenance, 01/11/22 11:04:00 EDT, Solution, [facility]/pharmacy #[id number], 160.02, cm, 11/10/21 8:41:00 EDT, Height, 113.18, kg, 04/20/20 14:58:00 EDT, Dry Weight Start Date: 01/11/22 Status: Ordered albuterol CFC free 90 mcg/inh inhalation aerosol 2, puffs, Inhalation, 4 times a day, PRN, danish label, # 25 Gm, Refills 11, Tot. Refills 11, Maintenance, 12/23/21 12:20:00 EDT, Aerosol, Route to Pharmacy Electronically, [id number], [facility]/pharmacy #[id number], 160.02, cm, ... Start Date: 12/23/21 Status: Ordered Back seat cushion for Manual [...] Refills, Maintenance, 07/20/22 15:16:00 EST, Capsule, [facility]/pharmacy #[id number], Partial fill upon patient request if [...] tablet, 11 Refills, 04/14/22 14:32:00 EDT, [facility]/pharmacy #[id number], 160.02, cm, 04/14/22 14:24:00 EDT, Height, 113.18, kg, 04/20/20 14:58:00 EDT, Dry Weight Start Date: 04/14/22 Status: Ordered Compression Stockings See Instructions, # 1 pair, Maintenance, 15-20mmHg knee length wear daily dx varicose veins, 06/10/15 10:47:06, Compound Start Date: 06/10/15 Status: Ordered escitalopram 20 mg oral tablet 0 Refills, Maintenance, 10/17/18 8:58:12 EDT Start Date: 10/17/18 Status: Ordered Folding Front wheel Walker Folding [...] opioid drug. Start Date: 09/28/20 Status: Ordered ibuprofen 800 mg oral tablet 800 mg, 1, tablet, By Mouth, 3 times a day, for 14 days, with food for headache and body pain do not take with Nabumetone label in danish, # 42 tablet, Refills 0, Tot. Refills 0, Acute 08/03/22 13:52:00 EST, 07/20/22 13:52:00 EST, Route to Pharmacy... Start Date: 07/20/22 Stop Date: 08/03/22 Status: Ordered knee brace knee brace, See [...] 2 hours if response unsatisfactory label in danish, # 12 tablet, 2 Refills, Soft Stop, 05/27/22 17:10:00 EDT, Tablet, [facility]/pharmacy #[id number], Partial fill upon patient... Start Date: 05/27/22 Status: Ordered nabumetone 750 mg oral tablet 1 tablet = 750 mg, By Mouth, 2 times a day, for pain with food label in danish, # 60 tablet, 6 Refills, Maintenance, 05/27/22 17:09:00 EDT, Tablet, [facility]/pharmacy #[id number], Partial fill upon patient request if [...] capsule, 1 Refills, Maintenance, 06/27/22 10:16:00 EST, [facility] ST[id number], 160.02, cm, 05/27/22 17:15:00 EDT, Height Start Date: 06/27/22 Status: Ordered traZODone 100 mg oral tablet 100 mg, 1, tablet, By Mouth, 2 times a day, # 180 tablet, Refills 0, Maintenance, 10/17/18 8:38:05 EDT Start Date: 10/17/18 Status: Ordered triamcinolone 0.025% topical lotion 1 application, Topically, 2 times a day, for itchy scalp apply a thin film label in danish, # 60 mL, 1 Refills, Maintenance, 04/14/22 14:42:00 EDT, Lotion, [facility]/pharmacy #[id number], 1 application Topically 2 times a day,Instr:for itchy scalp; apply a thi... Start Date: 04/14/22 Status: Ordered visco heel cups visco heel cups, See Instructions, # 1 pair, Refills 0, Tot. Refills 0, Maintenance, danish. wear daily in tennis shoes for plantar fasciitis, 12/13/18 13:20:31 EDT, Compound Start Date: 12/13/18 Status: Ordered zolpidem 10 mg oral tablet 1 tablet = 10 mg, By Mouth, Daily at bedtime, PRN as needed for insomnia, 0 Refills, Maintenance, 10/17/18 8:58:05 EDT, Tablet Start Date: 10/17/18 Status: Ordered Problem List Condition Confirmation Course Effective Dates Status H ealth Status Informant Asthma Confirmed Active Binge eating disorder, mild, [...] back pain Confirmed Active Migraines Confirmed Active MONICA on CPAP Confirmed 06/09/16 Active Breast pain, right Confirmed Active 08/01/95 - Pamela , 04/30/99 Yohan , 07/16/2000, Cesar , 02/22/04 Ciera Social History Social History Type Response Smoking Status Never (less than 100 in lifetime);Never entered on: 04/20/20 Sex Patient Care team information Care Team Personnel Name: Regina Worrell Position: [facility] PCO Associate Professional Member Role: PCP Address: Address: [address] [place] [address] Care Team Related Persons Name: PAMELA CHAVEZ Address: home [address] [address] Name: NIK PÉREZ Address: home [address] [address]
--- OUTSIDE RECORDS SUMMARY | 2023-08-09 10:42 | XMS_ITS | Continuity of Care Document ---
Author Name Unknown Organization [facility] Address [address] [place] [address]- Care Team Providers Care Communicable Disease Specialist Name Role Phone Passer Regina MA Primary Care Physician Encounter [facility] Date(s): 07/04/20 - 09/26/[address] [address] Attending Physician: Cherelle Ponce DO Admitting Physician: [...] mouth and throat after use label in cymro, #60 each, 11 Refills, Maintenance, 12/05/19 11:01:00 EDT, [facility], [id number], 2 puffs Inhalation 2 times a day,Instr:for [...] puffs, Inhalation, 4 times a day, PRN, cymro label, # 25 Gm, Refills 11, Tot. Refills 11, Maintenance, 12/05/19 11:01:00 EDT, Aerosol, Route to Pharmacy Electronically, [id number], [facility]/pharmacy #[id number], 160.02, cm, ... Start Date: 12/05/19 Status: Ordered amitriptyline 25 mg oral tablet 25 mg, 1, tablet, By Mouth, Daily at bedtime, for FERRERA and Fibromyalgia label in cymro, # 90 tablet, Refills 0, Tot. Refills 0, Maintenance, 02/04/19 14:21:26 EDT, Route to Pharmacy Electronically, [id number], [facility]/pharmacy #... Start Date: 02/04/19 Status: Ordered baclofen 20 mg oral tablet 1, tablet, By Mouth, 2 times a day, FOR MUSCLE PAIN., # 60 tablet, Refills 2, Tot. Refills 0, Maintenance, 08/31/20 8:49:00 EST, Route to Pharmacy Electronically, [facility] STORE [id number], 160.02, cm, 08/27/20 8:49:00 EST, Height, 113.18, [...] and joint pains with food label in cymro, #60 capsule, 2 Refills, Maintenance, 05/28/20 11:58:00 EST, [facility]apsule, [id number], 160.02, cm,05/28/20 11:02:00 EST, Height, 113.18, kg, 04/20/... Start Date: 05/28/20 Status: Ordered cetirizine 10 mg oral tablet 1 tablet = 10 mg, By Mouth, Daily, for allergies cymro label, # 90 tablet, 1 Refills, Maintenance, [...] Daily in AM, for allergies label in cymro, # 16 Gm, 11 Refills, Maintenance, 12/05/19 11:01:00 EDT, [place], [id number], 2 sprays Nares, Both Daily in AM,Instr:for allergies; label in cymro, 160.02, cm, 06/14/19 11:58... Start Date: 12/05/19 Status: Ordered ipratropium nasal 42 mcg/inh spray 2 sprays, Nares, Both, Daily at bedtime, SURINAMESE., # 1 each, 5 Refills, Maintenance, 01/22/18 11:32:47 EDT, 2 sprays Nares, Both Daily at bedtime,x30 days,Instr:SURINAMESE. Start Date: 01/22/18 Stop Date: 07/21/18 Status: Ordered ketoconazole 1% topical shampoo See Instructions, wash hair with 2-3 times per week label in cymro, # 125 mL, 6 Refills, Maintenance, 05/28/20 11:59:00 EST, [facility]/pharmacy #[id number], wash hair with 2-3 times per week; label in cymro,160.02, cm, 05/28/20 11:02:00 EST, Height, 113.18,... Start [...] wash hands thoroughly after application label in cymro, # 50 Gm, 3 Refills, Maintenance, 10/17/18 [...] Refills, Maintenance, [facility] STORE [id number], 160.02, cm, 05/28/20 11:02:00 EST, Height, 113.18, [...] Daily, for allergy and asthma label in cymro, # 90 tablet, Refills 3,Tot. Refills 3, [...] thin film to affected area label in cymro, # 60 Gm, 1 Refills, Maintenance, 05/28/20 11:59:00 EST, Cream, [facility]/pharmacy #[id number], 1 application Topically 3 times a day,Instr:apply a thin film; to affect... Start Date: 05/28/20 Status: Ordered triamcinolone 0.025% topical lotion 1 application, Topically, 2 times a day, for itchy scalp apply a thin film label in cymro, # 60 mL, 1 Refills, Maintenance, 12/05/19 11:03:00 EDT, Lotion, [facility]/pharmacy #[id number], 1 application Topically 2 times a day,Instr:for itchy scalp; apply a thi... Start Date: 12/05/19 Status: Ordered visco heel cups visco heel cups, See Instructions, # 1 pair, Refills 0, Tot. Refills 0, Maintenance, cymro. wear daily in tennis shoes for plantar [...]
--- OUTSIDE RECORDS SUMMARY | 2023-08-09 10:42 | XMS_ITS | Continuity of Care Document ---
Author Name Unknown Organization [facility] Address Unknown Care Team Providers Care Branch Coordinator Name Role Phone Regina Worrell Primary Care Physician Encounter [facility] [place] Date(s): 11/02/21 - 12/25/21 [facility] Attending Physician: Regina Worrell Admitting Physician: Regina [...] mouth and throat after use label in bahraini, #60 each, 11 Refills, Maintenance, 12/23/21 12:20:00 EDT, [facility], [id number], 2 puffs Inhalation 2 times a day,Instr:for asthma; rinse mouth... Start Date: 12/23/21 Status: Ordered Aerochamber w/Mask (Large) See Instructions, # 1 each, Maintenance, dx asthma use as needed, 06/28/17 15:17:40, Compound Start Date: 06/28/17 Status: Ordered albuterol 0.083% inhalation solution 3 mL = 2.5 mg, Inhalation, Every 4 hours, PRN for wheezing, # 75 each, 6 Refills, Maintenance, 12/23/21 12:20:00 EDT, Solution, [facility]/pharmacy #[id number], 160.02, cm, 11/10/21 8:41:00 EDT, Height, 113.18, kg, 04/20/20 14:58:00 EDT, Dry Weight Start Date: 12/23/21 Status: Ordered albuterol CFC free 90 mcg/inh inhalation aerosol 2, puffs, Inhalation, 4 times a day, PRN, bahraini label, # 25 Gm, Refills 11, Tot. Refills 11, Maintenance, 12/23/21 12:20:00 EDT, Aerosol, Route to Pharmacy Electronically, [id number], [facility]/pharmacy #[id number], 160.02, cm, ... Start Date: 12/23/21 [...] 11/13/20 13:57:00 EDT, Route to Pharmacy Electronically, [facility]/pharmacy #[id number], 160.02, cm, 11/13/20 13:37:00 EDT, Height, [...] 30 tablet, 11 Refills, 12/23/21 12:20:00 EDT, [facility]/pharmacy #[id number], 160.02, cm, 11/10/21 8:41:00 EDT, Height, [...] 16 mL, 11 Refills, 12/23/21 12:20:00 EDT, [facility]/pharmacy #[id number], 30, USE 2 SPRAYS IN EACH [...] Daily, for swelling in legs label in bahraini, # 30 tablet, Refills 0, Tot. Refills 0, Maintenance, 10/29/20 17:53:00 EDT, Route to Pharmacy Electronically, [facility]/pharmacy #[id number], Partial fill upon patient request if [...] WITH MEALS, # 30 tablet, 1 Refills, [facility] STORE [id number], 160.02, cm, 01/27/21 17:35:00 EDT, Height, 113.18, kg, 04/20/20 14:58:00 EDT, Dry Weight Start Date: 06/08/21 Status: Ordered montelukast 10 mg oral tablet See Instructions, [facility], # 90 tablet, Refills 1, Tot. Refills 1, 12/24/2211:20:00 EDT, Instructions Replace Required Details, Route to Pharmacy Electronically, [facility]/pharmacy#[id number], 160.02, cm, 11/10/21 8:41:00 EDT, Height, 11... Start Date: 12/23/21 Status: Ordered nabumetone 750 mg oral tablet 1 tablet = 750 mg, By Mouth, 2 times a day, for pain with food label in bahraini, # 60 tablet, 3 Refills, Maintenance, 11/13/20 13:58:00 EDT, Tablet, [facility]/pharmacy #[id number], Partial fill upon patient request if [...] 10:08:00 EDT, Route to Pharmacy Electronically, [facility]/pharmacy #[id number], 160.02, cm, 06/14/19 11:58:00 EST, Height, 107.2, kg, 06/14/19 11:02:00 EST, Dry Weight Start Date: 02/06/20 Stop Date: 01/31/21 Status: Ordered omeprazole 40 mg oral enteric coated capsule 1 capsule, By Mouth, Daily, # 30 capsule, 2 Refills, [facility] STORE [id number], 160.02, cm, 01/27/21 17:35:00EDT, Height, 113.18, kg, 04/20/20 14:58:00 EDT, Dry Weight Start Date: 10/05/21 Status: Ordered propranolol 120 mg oral capsule, extended release TOME BONIFACIO Cortney KASPER [facility]OS [facility] DAVID [...] times a day, PRN Cough, label in bahraini, # 60 capsule, 0 Refills, Maintenance, 12/23/21 12:22:00 EDT, Capsule, [id number], Partial fill upon patient request if the [...] pair, Refills 0, Tot. Refills 0, Maintenance, bahraini. wear daily in tennis shoes for plantar [...]
--- OUTSIDE RECORDS SUMMARY | 2023-08-09 10:42 | XMS_ITS | Continuity of Care Document ---
Author Name Unknown Organization [facility] Address [address] [place] [phone]- Care Team Providers Care Sanipractic Physician Name Role Phone Passer Regina MA Primary Care Physician Encounter [facility] Date(s): 04/14/22 - 06/12/22 [facility] [address]- Attending Physician: Not on Staff, Attending MD Allergies, Adverse Reactions, Alerts No Known Allergies Immunizations Given and Recorded Vaccine Date Status Refusal Reason influenza virus vaccine, inactivated 05/27/22 Give n influenza virus vaccine, inactivated 05/28/20 Give n influenza virus vaccine, inactivated 06/22/18 Give n influenza virus vaccine, inactivated 06/26/17 Give n influenza virus vaccine, inactivated 08/30/16 Give n influenza virus vaccine, inactivated 05/20/15 Give n SARS-CoV-2 mRNA (hybfilx-ksap-gnlht) vax 11/02/21 Recorded SARS-CoV-2 (COVID-19) mRNA BNT-162b2 [...] 6 Refills, Maintenance, 01/11/22 11:04:00 EDT, Solution, [facility]/pharmacy #[id number], 160.02, cm, 11/10/21 8:41:00 EDT, Height, 113.18, kg, 04/20/20 14:58:00 EDT, Dry Weight Start Date: 01/11/22 Status: Ordered albuterol CFC free 90 mcg/inh inhalation aerosol 2, puffs, Inhalation, 4 times a day, PRN, georgian label, # 25 Gm, Refills 11, Tot. Refills 11, Maintenance, 12/23/21 12:20:00 EDT, Aerosol, Route to Pharmacy Electronically, [id number], [facility]/pharmacy #[id number], 160.02, cm, ... Start Date: 12/23/21 Status: Ordered Back seat cushion for Manual wheel chair Back seat cushion for Manual wheel chair, See Instructions, # 1 each, Refills 0, Tot. Refills 0, Maintenance, Dx:Critical illness Myopathy, 09/29/20 14:26:00 EST, Supply Start Date: 09/29/20 Status: Ordered Blood Pressure Monitor See Instructions, [...] 30 tablet, 11 Refills, 04/14/22 14:32:00 EDT, [facility]/pharmacy #[id number], 160.02, cm, 04/14/22 14:24:00 EDT, [...] 2 hours if response unsatisfactory label in georgian, # 12 tablet, 2 Refills, Soft Stop, 05/27/22 17:10:00 EDT, Tablet, [facility]/pharmacy #[id number], Partial fill upon patient... Start Date: 05/27/22 Status: Ordered MetFORMIN (Eqv-Glucophage XR) 500 mg oral tablet, extended release See Instructions, TAKE 1 TABLET BY MOUTH EVERY EVENING WITH MEALS, # 30 tablet, 1 Refills, [facility] STORE 83566, 160.02, cm, 01/27/21 17:35:00 EDT, Height, 113.18, kg, 04/20/20 14:58:00 EDT, Dry Weight Start Date: 06/08/21 Status: Ordered nabumetone 750 mg oral tablet 1 tablet = 750 mg, By Mouth, 2 times a day, for pain with food label in georgian, # 60 tablet, 6 Refills, Maintenance, 05/27/22 17:09:00 EDT, Tablet, [facility]/pharmacy #[id number], Partial fill upon [...] 02/06/20 10:08:00 EDT, Route to Pharmacy Electronically, [facility]/pharmacy #[id number], 160.02, cm, 06/14/19 11:58:00 EST, Height, 107.2, kg, 06/14/19 11:02:00 EST, Dry Weight Start Date: 02/06/20 Stop Date: 01/31/21 Status: Ordered pantoprazole 40 mg oral delayed release tablet 1 tablet = 40 mg, By Mouth, Daily, for acid label in georgian, # 30 tablet, 0 Refills, Maintenance, 05/27/22 17:10:00 EDT, [facility] Tablet, 160.02, cm, 05/27/22 16:44:00 EDT, Height Start Date: 05/27/22 Status: Ordered Pulse Ox Pulse Ox, See [...] Status: Ordered tiZANidine 4 mg oral capsule 1 capsule = 4 mg, By Mouth, 3 times a day, for muscle pain label in georgian, # 90 capsule, 0 Refills, Maintenance, 05/27/22 17:09:00 EDT, [facility]apsule, [id number], Discontinue Baclofen, 160.02, cm, 05/27/22 16:44:00 EDT, Height Start Date: 05/27/22 Status: Ordered traZODone 100 mg oral tablet 100 mg, 1, tablet, By Mouth, 2 times a day, # 180 tablet, Refills 0, Maintenance, 10/17/18 8:38:05 EDT Start Date: 10/17/18 Status: Ordered triamcinolone 0.025% topical lotion 1 application, Topically, 2 times a day, for itchy scalp apply a thin film label in georgian, # 60 mL, 1 Refills, Maintenance, 04/14/22 14:42:00 EDT, Lotion, [id number], 1 application Topically 2 times a day,Instr:for itchy scalp; apply a thi... Start Date: 04/14/22 Status: Ordered visco heel cups visco heel cups, See Instructions, # 1 pair, Refills 0, Tot. Refills 0, Maintenance, georgian. wear daily in tennis shoes for plantar [...] Care Team Personnel Name: Regina Worrell Position: [facility] PCO Associate Professional Member Role: PCP Address: Address: [address] [place] [address]- Care Team Related Persons Name: PAMELA CHAVEZ Address: home [address] [address] Name: NIK PÉREZ Address: home [address] [address]
--- OUTSIDE RECORDS SUMMARY | 2023-08-09 10:42 | XMS_ITS | Continuity of Care Document ---
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 Name Role Phone Passer Regina MA Primary Care Physician Encounter [facility] [place] Date(s): 08/11/22 - 09/10/22 [facility] [address] [place] [address]- Allergies, Adverse Reactions, Alerts No Known Allergies Immunizations Given and Recorded Vaccine Date Status Refusal Reason [id number] 12y+ bivalent booster vax 06/23/22 Given influenza virus vaccine, inactivated 05/27/22 Give n influenza virus vaccine, inactivated 05/28/20 Give n influenza virus vaccine, inactivated 06/22/18 Give n influenza virus vaccine, inactivated 06/26/17 Give n influenza virus vaccine, inactivated 08/30/16 Give n influenza virus vaccine, inactivated 05/20/15 Give n SARS-CoV-2 mRNA ([id number]) vax 11/02/21 Recorded SARS-CoV-2 (COVID-19) mRNA BNT-[id number] [...] 6 Refills, Maintenance, 01/11/22 11:04:00 EDT, Solution, [facility]/pharmacy #[id number], 160.02, cm, 11/10/21 8:41:00 EDT, Height, 113.18, kg, 04/20/20 14:58:00 EDT, Dry Weight Start Date: 01/11/22 Status: Ordered albuterol CFC free 90 mcg/inh inhalation aerosol 2, puffs, Inhalation, 4 times a day, PRN, angolan label, # 25 Gm, Refills 11, Tot. Refills 11, Maintenance, 12/23/21 12:20:00 EDT, Aerosol, Route to Pharmacy Electronically, [id number], [facility]/pharmacy #[id number], 160.02, cm, ... Start Date: 12/23/21 [...] 30 tablet, 11 Refills, 04/14/22 14:32:00 EDT, [facility]/pharmacy #[id number], 160.02, cm, 04/14/22 14:24:00 EDT, Height, [...] Daily, with food for anemia label in angolan, # 30 tablet, Refills 2, Tot. Refills [...] 2 hours if response unsatisfactory label in angolan, # 12 tablet, 2 Refills, Soft Stop, 05/27/22 17:10:00 EDT, Tablet, [facility]/pharmacy #[id number], Partial fill upon patient... Start Date: 05/27/22 Status: Ordered metFORMIN 500 mg oral tablet, extended release 1 tablet = 500 mg, By Mouth, Daily, for Diabetes with evening meal label in angolan, # 30 tablet, 2Refills, Maintenance, 08/11/22 15:47:00 EST, ER Tablet, [facility]/pharmacy #[id number], Partial fill upon patient request if the prescription is for a schedule I... Start Date: 08/11/22 Status: Ordered nabumetone 750 mg oral tablet 1 tablet = 750 mg, By Mouth, 2 times a day, for pain with food label in angolan, # 60 tablet, 6 Refills, Maintenance, 05/27/22 17:09:00 EDT, Tablet, [facility]/pharmacy #[id number], Partial [...] Refills, Maintenance, 08/30/22 9:01:00 EST, [facility], 160.02, cm, 08/09/22 10:52:00 EST, Height Start Date: 08/30/22 Status: Ordered traZODone 100 mg oral tablet 100 mg, 1, tablet, By Mouth, 2 times a day, # 180 tablet, Refills 0, Maintenance, 10/17/18 8:38:05 EDT Start Date: 10/17/18 Status: Ordered triamcinolone 0.025% topical lotion 1 application, Topically, 2 times a day, for itchy scalp apply a thin film label in angolan, # 60 mL, 1 Refills, Maintenance, 04/14/22 14:42:00 EDT, Lotion, [facility]/pharmacy #[id number], 1 application Topically 2 times a day,Instr:for itchy scalp; apply a thi... Start Date: 04/14/22 Status: Ordered visco heel cups visco heel cups, See Instructions, # 1 pair, Refills 0, Tot. Refills 0, Maintenance, angolan. wear daily in tennis shoes for plantar [...] Associate Professional Member Role: PCP Address: Address: [address] [place] [address]- Care Team Related Persons Name: PAMELA CHAVEZ Address: home [address] [address] Name: NIK PÉREZ Address: home [address] [address]
--- OUTSIDE RECORDS SUMMARY | 2023-08-09 10:42 | XMS_ITS | Continuity of Care Document ---
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 Start Date: 12/23/21 Status: Ordered Aerochamber w/Mask (Large) See Instructions, # 1 each, Maintenance, dx asthma use as needed, 06/28/17 15:17:40, Compound Start Date: 06/28/17 Status: Ordered albuterol 0.083% inhalation solution 3 mL = 2.5 mg, Inhalation, Every 4 hours, PRN for wheezing, # 75 each, 6 Refills, Maintenance, 01/11/22 11:04:00 EDT, Solution, [facility]/pharmacy #[id number], 160.02, cm, 11/10/21 8:41:00 EDT, Height, 113.18, kg, 04/20/20 14:58:00 EDT, Dry Weight Start Date: 01/11/22 Status: Ordered albuterol CFC free 90 mcg/inh inhalation aerosol 2, puffs, Inhalation, 4 times a day, PRN, iraqi label, # 25 Gm, Refills 11, Tot. Refills 11, Maintenance, 12/23/21 12:20:00 EDT, Aerosol, Route to Pharmacy Electronically, [id number], [facility]/pharmacy #[id number], 160.02, cm, ... Start Date: [...] 11/13/20 13:57:00 EDT, Route to Pharmacy Electronically, [facility]/pharmacy #[id number], 160.02, cm, 11/13/20 13:37:00 EDT, [...] 30 tablet, 11 Refills, 12/23/21 12:20:00 EDT, [facility]/pharmacy #[id number], 160.02, cm, 11/10/21 8:41:00 EDT, [...] 16 mL, 11 Refills, 12/23/21 12:20:00 EDT, [facility]/pharmacy #[id number], 30, USE 2 SPRAYS IN [...] Daily, for swelling in legs label in iraqi, # 30 tablet, Refills 0, Tot. Refills 0, Maintenance, 10/29/20 17:53:00 EDT, Route to Pharmacy Electronically, [facility]/pharmacy #[id number], Partial fill upon patient request if the [...] WITH MEALS, # 30 tablet, 1 Refills, [id number], 160.02, cm, 01/27/21 17:35:00 EDT, Height, 113.18, kg, 04/20/20 14:58:00 EDT, Dry Weight Start Date: 06/08/21 Status: Ordered montelukast 10 mg oral tablet See Instructions, GINO SOSAA [facility], # 90 tablet, Refills 1, Tot. Refills 1, 12/24/2211:20:00 EDT, Instructions Replace Required Details, Route to Pharmacy Electronically, [facility]/pharmacy#[id number], 160.02, cm, 11/10/21 8:41:00 EDT, Height, 11... Start Date: 12/23/21 Status: Ordered nabumetone 750 mg oral tablet 1 tablet = 750 mg, By Mouth, 2 times a day, for pain with food label in iraqi, # 60 tablet, 3 Refills, Maintenance, 11/13/20 13:58:00 EDT, Tablet, [facility]/pharmacy #[id number], Partial fill upon patient request [...] 02/06/20 10:08:00 EDT, Route to Pharmacy Electronically, [facility]/pharmacy #[id number], 160.02, cm, 06/14/19 11:58:00 EST, Height, 107.2, kg, 06/14/19 11:02:00 EST, Dry Weight Start Date: 02/06/20 Stop Date: 01/31/21 Status: Ordered omeprazole 40 mg oral enteric coated capsule 1 capsule, By Mouth, Daily, # 30 capsule, 2 Refills, [facility] [id number], 160.02, cm, 01/27/21 17:35:00EDT, Height, 113.18, kg, 04/20/20 14:58:00 EDT, Dry Weight Start Date: 10/05/21 Status: Ordered propranolol 120 mg oral capsule, extended release TOME BONIFACIO Cortney FUNKDOS LOS D EN LA MITCHELL HERNANDEZ [...] times a day, PRN Cough, label in iraqi, # 60 capsule, 0 Refills, Maintenance, 12/23/21 12:22:00 EDT, Capsule, [facility]/pharmacy #[id number], Partial fill upon patient request if the [...] pair, Refills 0, Tot. Refills 0, Maintenance, iraqi. wear daily in tennis shoes for plantar [...]
--- OUTSIDE RECORDS SUMMARY | 2023-08-09 10:42 | XMS_ITS | Continuity of Care Document ---
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 Refills 11, Maintenance, 10/17/18 8:52:13 EDT, Aerosol, Route to Pharmacy Electronically, [id number], [facility]/pharmacy #[id number], Compound Start Date: 10/17/18 Status: Ordered amitriptyline 25 mg oral tablet 25 mg, 1, tablet, By Mouth, Daily at bedtime, for FERRERA and Fibromyalgia label in italian, # 90 tablet, Refills 0, Tot. Refills 0, Maintenance, 02/04/19 14:21:26 EDT, Route to Pharmacy Electronically, [id number], [facility]/pharmacy #... Start Date: 02/04/19 Status: Ordered baclofen 20 mg oral tablet 20 mg, 1, tablet, By Mouth, 2 times a day, for muscle tightness and FERRERA label in italian, # 60 tablet, Refills 4, Tot. Refills 4, Maintenance, 10/17/18 8:52:12 EDT, Route to Pharmacy Electronically, [id number], [facility]/pharmacy #... Start Date: 10/17/18 Status: Ordered [...] for shoulder and knee pain label in italian, # 60 capsule, 5 Refills, Maintenance, 10/17/18 8:54:59 EDT, Capsule Start Date: 10/17/18 Status: Ordered cetirizine 10 mg oral tablet 1 tablet = 10 mg, By Mouth, Daily, for allergies italian label, # 90 tablet, 3 Refills, Maintenance, [...] Daily in AM, for allergies label in italian, # 16 Gm, 11 Refills, Maintenance, 10/17/18 8:50:36 EDT, [place], 2 sprays Nares, Both Daily in AM,Instr:for allergies; label in italian Start Date: 10/17/18 Status: Ordered ipratropium nasal 42 mcg/inh spray 2 sprays, Nares, Both, Daily at bedtime, MALTESE., # 1 each, 5 Refills, Maintenance, 01/22/18 11:32:47 EDT, 2 sprays Nares, Both Daily at bedtime,x30 days,Instr:MALTESE. Start Date: 01/22/18 Stop Date: 07/21/18 Status: Ordered ketoconazole 2% topical shampoo 1 applicator, Topically, Every Monday, Monday and Monday, label in italian, # 240 mL, 6 Refills,Soft Stop, 10/17/18 8:49:04 EDT, 1 applicator Topically Every Monday, Monday and Monday,Instr:label in italian Start Date: 10/17/18 Status: Ordered knee brace [...] wash hands thoroughly after application label in italian, # 50 Gm, 3 Refills, Maintenance, 10/17/18 [...] 10/29/19 10:55:00 EDT, Route to Pharmacy Electronically, [facility]/pharmacy #[id number], 160.02, cm, 06/14/19 11:58:00 EST,Height, 107.2, kg, 06/14/19 11:02:00 EST, Dry Weight Start Date: 10/29/19 Stop Date: 07/25/20 Status: Ordered omeprazole 40 mg oral enteric coated capsule 1 capsule = 40 mg, By Mouth, Daily, for reflux label in italian, # 90 capsule, 1 Refills, Maintenance, 10/17/18 8:49:03 EDT, EC Capsule Start Date: 10/17/18 Status: Ordered propranolol 80 mg oral capsule, extended release 80 mg, 1, capsule, By Mouth, Daily, # 30 capsule, Refills 0, Maintenance, 10/17/18 8:38:00 EDT Start Date: 10/17/18 Status: Ordered Singulair 10 mg oral tablet 10 mg, 1, tablet, By Mouth, Daily, for allergy and asthma label in italian, # 90 tablet, Refills 1,Tot. Refills 1, Maintenance, 10/17/18 8:50:35 EDT, Route to Pharmacy Electronically, [id number], [facility]/pharmacy #[id number] Start Date: 10/17/18 Status: Ordered Splint See [...] pair, Refills 0, Tot. Refills 0, Maintenance, italian. wear daily in tennis shoes for plantar [...]
--- OUTSIDE RECORDS SUMMARY | 2023-08-09 10:43 | XMS_ITS | Continuity of Care Document ---
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 Start Date: 12/23/21 Status: Ordered Aerochamber w/Mask (Large) See Instructions, # 1 each, Maintenance, dx asthma use as needed, 06/28/17 15:17:40, Compound Start Date: 06/28/17 Status: Ordered albuterol 0.083% inhalation solution 3 mL = 2.5 mg, Inhalation, Every 4 hours, PRN for wheezing, # 75 each, 6 Refills, Maintenance, 01/11/22 11:04:00 EDT, Solution, [facility]/pharmacy #[id number], 160.02, cm, 11/10/21 8:41:00 EDT, Height, 113.18, kg, 04/20/20 14:58:00 EDT, Dry Weight Start Date: 01/11/22 Status: Ordered albuterol CFC free 90 mcg/inh inhalation aerosol 2, puffs, Inhalation, 4 times a day, PRN, armenian label, # 25 Gm, Refills 11, Tot. Refills 11, Maintenance, 12/23/21 12:20:00 EDT, Aerosol, Route to Pharmacy Electronically, [id number], [facility]/pharmacy #[id number], 160.02, [...] tablet, Refills 3, Tot. Refills 3, Maintenance, 04/14/22 14:32:00 EDT, Route to Pharmacy Electronically, [facility]/pharmacy #[id number], 160.02, cm, 04/14/22 14:24:00 EDT, Height, 113.18, kg, 04/20/20 14:... Start Date: 04/14/22 Status: Ordered Blood Pressure Monitor See Instructions, [...] 30 tablet, 11 Refills, 04/14/22 14:32:00 EDT, [facility]/pharmacy #[id number], 160.02, cm, 04/14/22 14:24:00 EDT, Height, 113.18, kg, 04/20/20 14:58:00 EDT, Dry Weight Start Date: 04/14/22 Status: Ordered Compression Stockings See Instructions, # 1 pair, Maintenance, 15-20mmHg knee length wear daily dx varicose veins, 06/10/15 10:47:06, Compound Start Date: 06/10/15 Status: Ordered escitalopram 20 mg oral tablet 0 Refills, Maintenance, 10/17/18 8:58:12 EDT Start Date: 10/17/18 Status: Ordered fluocinonide 0.05% topical cream 1 application, Topically, 2 times a day, # 120 Gm, 1 Refills, Acute 06/03/22 14:34:00 EST, 04/14/2214:33:00 EDT, Cream, [facility]/pharmacy #[id number], Partial fill upon patient request if the prescription is for a schedule II opioid drug., 1 application Topical... Start Date: 04/14/22 Stop Date: 06/03/22 Status: Ordered fluticasone 50 mcg/inh nasal spray See Instructions, USE 2 SPRAYS IN EACH NOSTRIL IN THE MORNING FOR ALLERGIES, # 16 mL, 11 Refills, 12/23/21 12:20:00 EDT, [id number], 30, USE 2 SPRAYS IN EACH [...] Daily, for swelling in legs label in armenian, # 30 tablet, Refills 0, Tot. Refills 0, Maintenance, 10/29/20 17:53:00 EDT, Route to Pharmacy Electronically, [facility]/pharmacy #[id number], Partial fill upon patient request if the [...] WITH MEALS, # 30 tablet, 1 Refills, [facility] ST[facility] 14253, 160.02, cm, 01/27/21 17:35:00 EDT, Height, 113.18, kg, 04/20/20 14:58:00 EDT, Dry Weight Start Date: 06/08/21 Status: Ordered montelukast 10 mg oral tablet See Instructions, GINO FELIPE TODOS [place] [facility], # 90 tablet, Refills 1, Tot. Refills 1, 12/24/2211:20:00 EDT, Instructions Replace Required Details, [id number] 160[facility], cm, 11/10/21 8:41:00 EDT, Height, 11... Start Date: 12/23/21 Status: Ordered nabumetone 750 mg oral tablet 1 tablet = 750 mg, By Mouth, 2 times a day, for pain with food label in armenian, # 60 tablet, 3 Refills, Maintenance, 11/13/20 13:58:00 EDT, Tablet, [facility]/pharmacy #[id number], Partial fill upon [...] EDT, [id number] 160.[facility], cm, 06/14/19 11:58:00 EST, Height, 107.2, kg, 06/14/19 11:02:00 EST, Dry Weight Start Date: 02/06/20 Stop Date: 01/31/21 Status: Ordered omeprazole 40 mg oral enteric coated capsule 1 capsule, By Mouth, Daily, # 30 capsule, 2 Refills, [facility] [id number], 160.02, cm, 01/27/21 17:35:00EDT, Height, 113.18, kg, 04/20/20 14:58:00 EDT, Dry Weight Start Date: 10/05/21 Status: Ordered propranolol 120 mg oral capsule, extended release TOME BONIFACIO Cortney GRAJEDA LOS David EN LA MITCHELL HERNANDEZ Start Date: 12/05/19 [...] times a day, PRN Cough, label in armenian, # 60 capsule, 0 Refills, Maintenance, 12/23/21 12:22:00 EDT, Capsule, [facility]/pharmacy #[id number], Partial fill upon patient request if the prescription is for a schedule II opioid drug.... Start Date: 12/23/21 Status: Ordered tiZANidine 2 mg oral tablet 2 mg, 1, tablet, By Mouth, 3 times a day, # 42 tablet, Refills 0, Tot. Refills 0, Maintenance, 04/14/22 14:37:00 EDT, Route to Pharmacy Electronically, [facility]/pharmacy #[id number], Partial fill upon patient request if the prescription is for a schedule II opio... Start Date: 04/14/22 Status: Ordered traZODone 100 mg oral tablet 100 mg, 1, tablet, By Mouth, 2 times a day, # 180 tablet, Refills 0, Maintenance, 10/17/18 8:38:05 EDT Start Date: 10/17/18 Status: Ordered triamcinolone 0.025% topical lotion 1 application, Topically, 2 times a day, for itchy scalp apply a thin film label in armenian, # 60 mL, 1 Refills, Maintenance, 04/14/22 14:42:00 EDT, Lotion, [facility]/pharmacy #[id number], 1 application Topically 2 times a day,Instr:for itchy scalp; apply a thi... Start Date: 04/14/22 Status: Ordered visco heel cups visco heel cups, See Instructions, # 1 pair, Refills 0, Tot. Refills 0, Maintenance, armenian. wear daily in tennis shoes for plantar [...] on: 04/20/20 Sex Patient Care team information Personnel Name: Regina Worrell Address: Address: [address] [place] [address]
--- OUTSIDE RECORDS SUMMARY | 2023-08-09 10:43 | XMS_ITS | Continuity of Care Document ---
Author Name Unknown Organization 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 Allergies, Adverse Reactions, Alerts No Known [...] mouth and throat after use label in austrian, #60 each, 11 Refills, Maintenance, 12/23/21 12:20:00 EDT, [facility]erosol, [id number], 2 puffs Inhalation 2 times a day,Instr:for asthma; rinse mouth... Start Date: 12/23/21 Status: Ordered Aerochamber w/Mask (Large) See Instructions, # 1 each, Maintenance, dx asthma use as needed, 06/28/17 15:17:40, Compound Start Date: 06/28/17 Status: Ordered albuterol 0.083% inhalation solution 3 mL = 2.5 mg, Inhalation, Every 4 hours, PRN for wheezing, # 75 each, 6 Refills, Maintenance, 01/11/22 11:04:00 EDT, Solution, [facility]/pharmacy #[id number], 160.02, cm, 11/10/21 8:41:00 EDT, Height, 113.18, kg, 04/20/20 14:58:00 EDT, Dry Weight Start Date: 01/11/22 Status: Ordered albuterol CFC free 90 mcg/inh inhalation aerosol 2, puffs, Inhalation, 4 times a day, PRN, austrian label, # 25 Gm, Refills 11, Tot. Refills 11, Maintenance, 12/23/21 12:20:00 EDT, Aerosol, Route to Pharmacy Electronically, [id number], [facility]/pharmacy #[id number], 160.02, cm, ... [...] 13:57:00 EDT, Route to Pharmacy Electronically, [facility]/pharmacy #[id number], 160.02, cm, 11/13/20 [...] tablet, 11 Refills, 12/23/21 12:20:00 EDT, [facility]/pharmacy #[id number], 160.02, cm, 11/10/21 [...] mL, 11 Refills, 12/23/21 12:20:00 EDT, [facility]/pharmacy #[id number], 30, USE 2 SPRAYS IN EACH [...] Daily, for swelling in legs label in austrian, # 30 tablet, Refills 0, Tot. Refills 0, Maintenance, 10/29/20 17:53:00 EDT, [id number] fill upon patient request if the [...] MEALS, # 30 tablet, 1 Refills, [facility] STORE [address]16, 160.02, cm, 01/27/21 17:35:00 EDT, Height, 113.18, kg, 04/20/20 14:58:00 EDT, Dry Weight Start Date: 06/08/21 Status: Ordered montelukast 10 mg oral tablet See Instructions, GINO SOSAA TODOS [place], # 90 tablet, Refills 1, Tot. Refills 1, 12/24/2211:20:00 EDT, Instructions Replace Required Details, Route to Pharmacy Electronically, [facility]/pharmacy#[id number], 160.02, cm, 11/10/21 8:41:00 EDT, Height, 11... Start Date: 12/23/21 Status: Ordered nabumetone 750 mg oral tablet 1 tablet = 750 mg, By Mouth, 2 times a day, for pain with food label in austrian, # 60 tablet, 3 Refills, Maintenance, 11/13/20 13:58:00 EDT, Tablet, [facility]/pharmacy #[id number], Partial fill upon [...] EDT, Route to Pharmacy Electronically, [facility]/pharmacy #[id number], 160.02, cm, 06/14/19 11:58:00 EST, Height, 107.2, kg, 06/14/19 11:02:00 EST, Dry Weight Start Date: 02/06/20 Stop Date: 01/31/21 Status: Ordered omeprazole 40 mg oral enteric coated capsule 1 capsule, By Mouth, Daily, # 30 capsule, 2 Refills, [facility] STORE 58024, 160.02, cm, 01/27/21 17:35:00EDT, Height, 113.18, kg, [...] times a day, PRN Cough, label in austrian, # 60 capsule, 0 Refills, Maintenance, 12/23/21 12:22:00 EDT, Capsule, [facility]/pharmacy #[id number], Partial fill upon patient request if the [...] pair, Refills 0, Tot. Refills 0, Maintenance, austrian. wear daily in tennis shoes for plantar [...]
--- OUTSIDE RECORDS SUMMARY | 2023-08-09 10:43 | XMS_ITS | Continuity of Care Document ---
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 Start Date: 12/05/19 Status: Ordered Aerochamber w/Mask (Large) See Instructions, # 1 each, Maintenance, dx asthma use as needed, 06/28/17 15:17:40, Compound Start Date: 06/28/17 Status: Ordered albuterol 0.083% inhalation solution 3 mL = 2.5 mg, Inhalation, Every 4 hours, PRN for wheezing, # 75 each, 4 Refills, Maintenance, 12/05/19 11:01:00 EDT, Solution, [facility]/pharmacy #[id number], 160.02, cm, 06/14/19 11:58:00 EST, Height, 107.2, kg, 06/14/19 11:02:00 EST, Dry Weight Start Date: 12/05/19 Status: Ordered albuterol CFC free 90 mcg/inh inhalation aerosol 2, puffs, Inhalation, 4 times a day, PRN, ukrainian label, # 25 Gm, Refills 11, Tot. Refills 11, Maintenance, 12/05/19 11:01:00 EDT, Aerosol, Route to Pharmacy Electronically, [id number], [facility]/pharmacy #[id number], 160.02, cm, ... Start [...] 11/13/20 13:57:00 EDT, Route to Pharmacy Electronically, [facility]/pharmacy #[id number], 160.02, cm, 11/13/20 13:37:00 [...] 10 mg, By Mouth, Daily, for allergies ukrainian label, # 90 tablet, 1 Refills, Maintenance, 12/01/20 18:55:00 EDT, Tablet, [facility]/pharmacy #[id number], 160.02, cm, 11/13/20 13:37:00 [...] Daily in AM, for allergies label in ukrainian, # 16 Gm, 5 Refills, Maintenance, 12/14/20 10:44:00 EDT, [place], [facility]/pharmacy #[id number], 2 sprays Nares, Both Daily in AM,Instr:for allergies; label in ukrainian, 160.02, cm, 11/13/20 13:37:... Start Date: 12/14/20 [...] Daily, for swelling in legs label in ukrainian, # 30 tablet, Refills 0, Tot. Refills 0, Maintenance, 10/29/20 17:53:00 EDT, Route to Pharmacy Electronically, [facility]/pharmacy #[id number], Partial fill upon patient [...] Mouth, Daily, for blood sugar label in ukrainian with evening meal, # 30 tablet, 1 Refills, Maintenance, 04/02/21 8:58:00 EDT, ER Tablet, [facility]/pharmacy #[id number], Partial fill upon patient request if the prescription is for a schedule... Start Date: 04/02/21 Status: Ordered montelukast 10 mg oral tablet See Instructions, GINO FELIPE TODOS [place]OPER, # 90 tablet, Refills 1, Maintenance, Instructions Replace Required Details, Route to Pharmacy Electronically, [facility] STORE 65099, 160.02, cm, 01/27/21 17:35:00 EDT, Height, 113.18, kg, 04/20/20 14:58:00... Start Date: 01/28/21 Status: Ordered nabumetone 750 mg oral tablet 1 tablet = 750 mg, By Mouth, 2 times a day, for pain with food label in ukrainian, # 60 tablet, 3 Refills, Maintenance, 11/13/20 13:58:00 EDT, Tablet, [facility]/pharmacy #[id number], Partial fill upon patient [...] 02/06/20 10:08:00 EDT, Route to Pharmacy Electronically, [facility]/pharmacy #[id number], 160.02, cm, 06/14/19 11:58:00 EST, Height, 107.2, kg, 06/14/19 11:02:00 EST, Dry Weight Start Date: 02/06/20 Stop Date: 01/31/21 Status: Ordered omeprazole 40 mg oral enteric coated capsule See Instructions, TOME BONIFACIO CAPSULA POR VIA ORAL TODOS [place] HOOPER, # 30 capsule, 11 Refills, 11/13/20 13:57:00 EDT, [facility]/pharmacy #[id number], 160.02, cm, 11/13/20 13:37:00 [...] pair, Refills 0, Tot. Refills 0, Maintenance, ukrainian. wear daily in tennis shoes for plantar [...]
--- OUTSIDE RECORDS SUMMARY | 2023-08-09 10:43 | XMS_ITS | Continuity of Care Document ---
Author Name Unknown Organization [facility] oenterology Address [address] [place] [address]- Care Team Providers Care Spike Machine Heater Name Role Phone Passer Regina MA Primary Care Physician Encounter [facility] Date(s): 08/19/22 - 09/18/22 [facility] [address] [place] [address]- Allergies, Adverse Reactions, Alerts No Known Allergies Immunizations Given and Recorded Vaccine Date Status Refusal Reason [id number] 12y+ bivalent booster vax 06/23/22 Given influenza virus vaccine, inactivated 05/27/22 Give n influenza virus vaccine, inactivated 05/28/20 Give n influenza virus vaccine, inactivated 06/22/18 Give n influenza virus vaccine, inactivated 06/26/17 Give n influenza virus vaccine, inactivated 08/30/16 Give n influenza virus vaccine, inactivated 05/20/15 Give n SARS-CoV-2 mRNA ([id number]) vax 11/02/21 Recorded SARS-CoV-2 (COVID-19) mRNA BNT-162b2 [...] Maintenance, 01/11/22 11:04:00 EDT, Solution, [facility]/pharmacy #[id number], 160.02, cm, 11/10/21 8:41:00 EDT, Height, 113.18, kg, 04/20/20 14:58:00 EDT, Dry Weight Start Date: 01/11/22 Status: Ordered albuterol CFC free 90 mcg/inh inhalation aerosol 2, puffs, Inhalation, 4 times a day, PRN, tunisian label, # 25 Gm, Refills 11, Tot. Refills 11, Maintenance, 12/23/21 12:20:00 EDT, Aerosol, Route to Pharmacy Electronically, [id number], [facility]/pharmacy #[id number], 160.02, cm, ... Start Date: 12/23/21 [...] Maintenance, 07/20/22 15:16:00 EST, Capsule, [facility]/pharmacy #[id number], Partial fill upon patient request if [...] 11 Refills, 04/14/22 14:32:00 EDT, [facility]/pharmacy #[id number], 160.02, cm, 04/14/22 14:24:00 EDT, Height, [...] Daily, with food for anemia label in tunisian, # 30 tablet, Refills 2, Tot. Refills 2, Maintenance, 08/11/22 15:48:00 EST, Route to Pharmacy Electronically, [facility]/pharmacy #[id number], Partial fill upon patient request if [...] 2 hours if response unsatisfactory label in tunisian, # 12 tablet, 2 Refills, Soft Stop, 05/27/22 17:10:00 EDT, Tablet, [facility]/pharmacy #[id number], Partial fill upon patient... Start Date: 05/27/22 Status: Ordered metFORMIN 500 mg oral tablet, extended release 1 tablet = 500 mg, By Mouth, Daily, for Diabetes with evening meal label in tunisian, # 30 tablet, 2Refills, Maintenance, 08/11/22 15:47:00 EST, ER Tablet, [facility]/pharmacy #[id number], Partial fill upon patient request if the prescription is for a schedule I... Start Date: 08/11/22 Status: Ordered nabumetone 750 mg oral tablet 1 tablet = 750 mg, By Mouth, 2 times a day, for pain with food label in tunisian, # 60 tablet, 6 Refills, Maintenance, 05/27/22 17:09:00 EDT, Tablet, [facility]/pharmacy #[id number], Partial fill upon patient request if [...] Refills, Maintenance, 08/30/22 9:01:00 EST, [id number], 160.02, cm, 08/09/22 10:52:00 EST, Height Start Date: 08/30/22 Status: Ordered traZODone 100 mg oral tablet 100 mg, 1, tablet, By Mouth, 2 times a day, # 180 tablet, Refills 0, Maintenance, 10/17/18 8:38:05 EDT Start Date: 10/17/18 Status: Ordered triamcinolone 0.025% topical lotion 1 application, Topically, 2 times a day, for itchy scalp apply a thin film label in tunisian, # 60 mL, 1 Refills, Maintenance, 04/14/22 14:42:00 EDT, Lotion, [facility]/pharmacy #[id number], 1 application Topically 2 times a day,Instr:for itchy scalp; apply a thi... Start Date: 04/14/22 Status: Ordered visco heel cups visco heel cups, See Instructions, # 1 pair, Refills 0, Tot. Refills 0, Maintenance, tunisian. wear daily in tennis shoes for plantar [...] Confirmed Active 08/01/95 - Pamela , 04/30/99 ANA MARÍA Almanzar , 07/16/2000, Cesar 02/22/04 [place] Social History Social History Type Response Smoking Status Never (less than 100 in lifetime);Never entered on: 04/20/20 Sex Patient Care team information Care Team Personnel Name: Regina Worrell Position: S PCO Associate Professional Member Role: PCP Address: Address: [address] [place] [address]- Care Team Related Persons Name: PAMELA CHAVEZ Address: home [address] [address] Name: NIK PÉREZ Address: home [address] [address]
--- OUTSIDE RECORDS SUMMARY | 2023-08-09 10:43 | XMS_ITS | Continuity of Care Document ---
Author Name Unknown Organization [facility] Address [address] [place] [address]- Care Team Providers Care Residential Recycle Driver Name Role Phone Passer Regina MA Primary Care Physician Encounter [facility] Date(s): 09/02/20 - 10/02/20 [facility]/[address] [address]- Allergies, Adverse Reactions, Alerts Substance Reaction Severity [...] 2 tablet = 1,000 mg, By Mouth, 3 times a day, PRN Pain , Severe, for 14 days, # 75 tablet, 0 Refills, Acute 10/12/20 12:26:00 EDT, 09/28/20 12:26:00 EST, [id number], [facility] fill upon patientrequest if the prescription is for a schedule II op... Start Date: 09/28/20 Stop Date: 10/12/20 Status: Ordered Advair HFA 115 mcg / 21 mcg 2 puffs, Inhalation, 2 times a day, for asthma rinse mouth and throat after use label in turks and caicos islander, #60 each, 11 Refills, Maintenance, 12/05/19 11:01:00 EDT, [facility]erosol, [id number], 2 puffs Inhalation 2 times a day,Instr:for [...] puffs, Inhalation, 4 times a day, PRN, turks and ca[place] islander label, # 25 Gm, Refills 11, Tot. Refills 11, Maintenance, 12/05/19 11:01:00 EDT, Aerosol, Route to Pharmacy Electronically, [id number], [facility]/pharmacy #[id number], 160.02, cm, [...] 08/31/20 8:49:00 EST, Route to Pharmacy Electronically, [facility] STORE [facility]91, 160.02, cm, 08/27/20 8:49:00 EST, Height, 113.18, [...] and joint pains with food label in turks and caicos islander, #60 capsule, 2 Refills, Maintenance, 05/28/20 11:58:00 EST, Capsule, [facility]/pharmacy #[id number], 160.02, cm,05/28/20 11:02:00 EST, Height, 113.18, kg, 04/20/... Start Date: 05/28/20 Status: Ordered cetirizine 10 mg oral tablet 1 tablet = 10 mg, By Mouth, Daily, for allergies turks and caicos islander label, # 90 tablet, 1 Refills, Maintenance, [...] Daily in AM, for allergies label in turks and caicos islander, # 16 Gm, 11 Refills, Maintenance, 12/05/19 11:01:00 EDT, [place], [facility]/pharmacy #[id number], 2 sprays Nares, Both Daily in AM,Instr:for allergies; label in turks and caicos islander, 160.02, cm, 06/14/19 11:58... Start Date: 12/05/19 [...] Refills, Maintenance, [facility] STORE 80397, 160.02, cm, 05/28/20 11:02:00 EST, Height, 113.18, kg, 04/20/20 14:58:00 EDT, Dry Weight Start Date: 07/23/20 Status: Ordered propranolol 120 mg oral capsule, extended release TOME BONIFACIO C PSULA TODOS LOS D EN LA MA DAVID Start Date: 12/05/19 Status: Ordered Seat cushion for manual wheel chair Seat cushion for manual wheel chair, See Instructions, # 1 each, Refills 0, Tot. Refills 0, Maintenance, Dx:Critical illness Myopathy, 09/29/20 14:26:00 EST, Supply Start Date: 09/29/20 Status: Ordered Singulair 10 mg oral tablet 10 mg, 1, tablet, By Mouth, Daily, for allergy and asthma label in turks and caicos islander, # 90 tablet, Refills 3,Tot. Refills 3, [...] pair, Refills 0, Tot. Refills 0, Maintenance, turks and ca[place] islander. wear daily in tennis shoes for [...]
--- OUTSIDE RECORDS SUMMARY | 2023-08-09 10:43 | XMS_ITS | Continuity of Care Document ---
Author Name Unknown Organization [facility] Address [address] [place] [address]- Care Team Providers Care Multi Spindle Operator Name Role Phone Regina Worrell [id number]/[address] [address] Attending Physician: Regina Worrell Admitting Physician: [...] mouth and throat after use label in gabonese, #60 each, 11 Refills, Maintenance, 12/05/19 11:01:00 EDT, [facility], [id number], 2 puffs Inhalation 2 times a day,Instr:for asthma; rinse mouth... Start Date: 12/05/19 Status: Ordered Aerochamber w/Mask (Large) See Instructions, # 1 each, Maintenance, dx asthma use as needed, 06/28/17 15:17:40, Compound Start Date: 06/28/17 Status: Ordered albuterol 0.083% inhalation solution 3 mL = 2.5 mg, Inhalation, Every 4 hours, PRN for wheezing, # 75 each, 4 Refills, Maintenance, 12/05/19 11:01:00 EDT, Solution, [facility]/pharmacy #[id number], 160.02, cm, 06/14/19 11:58:00 EST, Height, 107.2, kg, 06/14/19 11:02:00 EST, Dry Weight Start Date: 12/05/19 Status: Ordered albuterol CFC free 90 mcg/inh inhalation aerosol 2, puffs, Inhalation, 4 times a day, PRN, gabonese label, # 25 Gm, Refills 11, Tot. Refills 11, Maintenance, 12/05/19 11:01:00 EDT, Aerosol, Route to Pharmacy Electronically, [id number], [facility]/pharmacy #[id number], 160.02, cm, ... [...] 08/31/20 8:49:00 EST, Route to Pharmacy Electronically, [facility] STORE 54563, 160.02, cm, 08/27/20 8:49:00 EST, Height, 113.18, [...] and joint pains with food label in gabonese, #60 capsule, 2 Refills, Maintenance, 05/28/20 11:58:00 EST, Capsule, [facility]/pharmacy #[id number], 160.02, cm,05/28/20 11:02:00 EST, Height, 113.18, kg, ... Start Date: 05/28/20 Status: Ordered cetirizine 10 mg oral tablet 1 tablet = 10 mg, By Mouth, Daily, for allergies gabonese label, # 90 tablet, 1 Refills, Maintenance, 10/09/20 11:23:00 EDT, Tablet, [facility]/pharmacy #[id number], 160.02, cm, 09/21/20 14:20:00 EST, [...] Daily in AM, for allergies label in gabonese, # 16 Gm, 11 Refills, Maintenance, 12/05/19 11:01:00 EDT, [place], [facility]/pharmacy #[id number], 2 sprays Nares, Both Daily in AM,Instr:for allergies; label in gabonese, 160.02, cm, 06/14/19 11:58... Start Date: 5/14/20 Status: Ordered Folding Front wheel Walker Folding [...] Daily, for swelling in legs label in gabonese, # 30 tablet, Refills 0, Tot. Refills 0, Maintenance, 10/29/20 17:53:00 EDT, [facility] Electronically, [facility] [...] 02/06/20 10:08:00 EDT, Route to Pharmacy Electronically, [facility]/pharmacy #[id number], 160.02, cm, 06/14/19 11:58:00 EST, Height, 107.2, kg, 06/14/19 11:02:00 EST, Dry Weight Start Date: 02/06/20 Stop Date: 01/31/21 Status: Ordered omeprazole 40 mg oral enteric coated capsule See Instructions, GINO BONIFACIO CAPSULA POR VIA ORAL TODOS MEGHNA HOOPER, # 30 capsule, 3 Refills, Maintenance, [facility] STORE 28187, 160.02, cm, 05/28/20 11:02:00 EST, Height, 113.18, [...] Daily, for allergy and asthma label in gabonese, # 90 tablet, Refills 3,Tot. Refills 3, Maintenance, 12/05/19 11:01:00 EDT, [facility], [facility] pair, Refills 0, Tot. Refills 0, Maintenance, gabonese. wear daily in tennis shoes for plantar [...]
--- OUTSIDE RECORDS SUMMARY | 2023-08-09 10:43 | XMS_ITS | Continuity of Care Document ---
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 Name Role Phone Passer Regina MA Primary Care Physician Encounter [facility] [id number] Date(s): 06/23/22 - 07/23/22 [facility]/[address] [address]- Attending Physician: Sara Zaldivar Admitting Physician: Sara Zaldivar Referring Physician: AdmSara storm Allergies, Adverse Reactions, Alerts No Known Allergies Immunizations Given and Recorded Vaccine Date Status Refusal Reason [id number] 12y+ bivalent booster vax 06/23/22 Given influenza virus vaccine, inactivated 05/27/22 Give n influenza virus vaccine, inactivated 05/28/20 Give n influenza virus vaccine, inactivated 06/22/18 Give n influenza virus vaccine, inactivated 06/26/17 Give n influenza virus vaccine, inactivated 08/30/16 Give n influenza virus vaccine, inactivated 05/20/15 Give n SARS-CoV-2 mRNA (vzilili-lvri-xiofs) vax 11/02/21 Recorded SARS-CoV-2 (COVID-19) mRNA BNT-162b2 [...] Maintenance, 01/11/22 11:04:00 EDT, Solution, [facility]/pharmacy #[id number], 160.02, cm, 11/10/21 8:41:00 EDT, Height, 113.18, kg, 04/20/20 14:58:00 EDT, Dry Weight Start Date: 01/11/22 Status: Ordered albuterol CFC free 90 mcg/inh inhalation aerosol 2, puffs, Inhalation, 4 times a day, PRN, pakistani label, # 25 Gm, Refills 11, Tot. Refills 11, Maintenance, 12/23/21 12:20:00 EDT, Aerosol, Route to Pharmacy Electronically, [id number], [facility]/pharmacy #[id number], 160.02, cm, ... Start Date: [...] Maintenance, 07/20/22 15:16:00 EST, Capsule, [facility]/pharmacy #[id number], Partial fill upon patient request [...] 11 Refills, 04/14/22 14:32:00 EDT, [facility]/pharmacy #[id number], 160.02, cm, 04/14/22 14:24:00 EDT, [...] do not take with Nabumetone label in pakistani, # 42 tablet, Refills 0, Tot. Refills [...] 2 hours if response unsatisfactory label in pakistani, # 12 tablet, 2 Refills, Soft Stop, 05/27/22 17:10:00 EDT, Tablet, [facility]/pharmacy #[id number], Partial fill upon patient... Start Date: 05/27/22 Status: Ordered nabumetone 750 mg oral tablet 1 tablet = 750 mg, By Mouth, 2 times a day, for pain with food label in pakistani, # 60 tablet, 6 Refills, Maintenance, 05/27/22 17:09:00 EDT, Tablet, [facility]/pharmacy #[id number], Partial fill upon patient request [...] capsule, 1 Refills, Maintenance, 06/27/22 10:16:00 EST, [facility] STORE 433[facility], 160.02, cm, 05/27/22 17:15:00 EDT, Height Start [...] pakistani, # 60 mL, 1 Refills, Maintenance, 04/14/22 14:42:00 EDT, Lotion, [facility]/pharmacy #[id number], 1 application Topically 2 times [...] Associate Professional Member Role: PCP Address: Address: [address] [place] [address]- Care Team Related Persons Name: PAMELA CHAVEZ Address: home [address] [place] [id number] Name: NIK PÉREZ Address: home [address] [place] [id number]
--- OUTSIDE RECORDS SUMMARY | 2023-08-09 10:43 | XMS_ITS | Continuity of Care Document ---
Author Name Unknown Organization [facility] Address [address] [place] [address]- Care Team Providers Care Social Work Instructor Name Role Phone Passer Regina MA Primary Care Physician Encounter [facility] Date(s): 04/20/20 - 05/20/20 [facility]/[address] [address]- [facility] Allergies, Adverse Reactions, Alerts Substance Reaction [...] mouth and throat after use label in burkinan, #60 each, 11 Refills, Maintenance, 12/05/19 11:01:00 EDT, [facility], [facility], 2 puffs Inhalation 2 times a day,Instr:for asthma; rinse mouth... Start Date: 12/05/19 Status: Ordered Aerochamber w/Mask (Large) See Instructions, # 1 each, Maintenance, dx asthma use as needed, 06/28/17 15:17:40, Compound Start Date: 06/28/17 Status: Ordered albuterol 0.083% inhalation solution 3 mL = 2.5 mg, Inhalation, Every 4 hours, PRN for wheezing, # 75 each, 4 Refills, Maintenance, 05/14/20 11:01:00 EDT, Solution, [facility]/pharmacy #[id number], 160.02, cm, 06/14/19 11:58:00 EST, Height, 107.2, kg, 06/14/19 11:02:00 EST, Dry Weight Start Date: 12/05/19 Status: Ordered albuterol CFC free 90 mcg/inh inhalation aerosol 2, puffs, Inhalation, 4 times a day, PRN, burkinan label, # 25 Gm, Refills 11, Tot. Refills 11, Maintenance, 12/05/19 11:01:00 EDT, Aerosol, Route to Pharmacy Electronically, [id number], [facility]/pharmacy #[id number], 160.02, cm, ... Start Date: 12/05/19 Status: Ordered amitriptyline 25 mg oral tablet 25 mg, 1, tablet, By Mouth, Daily at bedtime, for FERRERA and Fibromyalgia label in burkinan, # 90 tablet, Refills 0, Tot. Refills 0, Maintenance, 02/04/19 14:21:26 EDT, Route to Pharmacy Electronically, [id number], [facility]/pharmacy #... Start Date: 02/04/19 Status: Ordered Blood [...] 10 mg, By Mouth, Daily, for allergies burkinan label, # 90 tablet, 1 Refills, Maintenance, 03/23/20 9:46:00 EDT, Tablet, [facility]/pharmacy #[id number], 160.02, cm, 06/14/19 11:58:00 EST, Height, [...] knee pain take with food label in burkinan, # 60 tablet, 2 Refills, Maintenance, 12/05/19 10:58:00 EDT, Tablet, [facility]/pharmacy #[id number], 160.02, cm, 06/14/19 11:58:00 EST, Height, 107.2, kg, 05/25... Start Date: 12/05/19 Status: Ordered escitalopram 20 mg oral tablet 0 Refills, Maintenance, 10/17/18 8:58:12 EDT Start Date: 10/17/18 Status: Ordered Flonase 50 mcg/inh nasal spray 2 sprays, Nares, Both, Daily in AM, for allergies label in burkinan, # 16 Gm, 11 Refills, Maintenance, 12/05/19 11:01:00 EDT, [place], [facility]/pharmacy #[id number], 2 sprays Nares, Both Daily in AM,Instr:for allergies; label in burkinan, 160.02, cm, 06/14/19 11:58... Start Date: 12/05/19 Status: Ordered ipratropium nasal 42 mcg/inh spray 2 sprays, Nares, Both, Daily at bedtime, SLOVENIAN., # 1 each, 5 Refills, Maintenance, 01/22/18 11:32:47 EDT, 2 sprays Nares, Both Daily at bedtime,x30 days,Instr:SLOVENIAN. Start Date: 01/22/18 Stop Date: 07/21/18 Status: [...] wash hands thoroughly after application label in burkinan, # 50 Gm, 3 Refills, Maintenance, 10/17/18 8:56:11 EDT, 1 applicator Topically 3 times a day,Instr:for shoulder and knee pain... Start Date: 10/17/18 Status: Ordered nabumetone 750 mg oral tablet 1 tablet = 750 mg, By Mouth, 2 times a day, for back, hip and knee pain take with food label in burkinan, # 60 tablet, 2 Refills, Maintenance, 12/05/19 10:58:00 EDT, Tablet, [facility]/pharmacy #[id number], 160.02, cm, 06/14/19 11:58:00 EST, Height, 107.2, kg, 11... Start Date: 12/05/19 Status: Ordered Nebulizer/Compressor See Instructions, # 1 each, Maintenance, use as needed dx asthma, 06/06/17 17:41:21, Compound Start Date: 06/06/17 Status: Ordered norethindrone 5 mg oral tablet 15 mg, 3, tablet, By Mouth, Daily, # 90 tablet, Refills 11, Tot. Refills 11, Maintenance, 02/06/20 10:08:00 EDT, Route to Pharmacy Electronically, [facility]/pharmacy #[id number], 160.02, cm, 06/14/19 11:58:00 EST, Height, 107.2, kg, 06/14/19 11:02:00 EST, Dry Weight Start Date: 02/06/20 Stop Date: 01/31/21 Status: Ordered omeprazole 40 mg oral enteric coated capsule See Instructions, TOME BONIFACIO CAPSULA POR VIA ORAL TODOS [place], # 30 capsule, 3 Refills, Maintenance, [facility] STORE [address]276, 160.02, cm, 06/14/19 11:58:00 EST, Height, 107.2, [...] Daily, for allergy and asthma label in burkinan, # 90 tablet, Refills 3,Tot. Refills 3, Maintenance, 12/05/19 11:01:00 EDT, Route to Pharmacy Electronically, [facility]/pharmacy #[id number], 160.02, cm, 06/14/19 11:58:00 EST, Height, [...] scalp apply a thin film label in burkinan, # 60 mL, 1 Refills, Maintenance, 12/05/19 11:03:00 EDT, Lotion, [facility]/pharmacy #[id number], 1 application Topically 2 times a day,Instr:for itchy scalp; apply a thi... Start Date: 12/05/19 Status: Ordered visco heel cups visco heel cups, See Instructions, # 1 pair, Refills 0, Tot. Refills 0, Maintenance, burkinan. wear daily in tennis shoes for plantar [...]
--- OUTSIDE RECORDS SUMMARY | 2023-08-09 10:43 | XMS_ITS | Continuity of Care Document ---
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 Role Phone Regina Worrell Primary Care Phys[place] [facility] [place] 02/04/[address] [address] Attending Physician: Regina Worrell Admitting Physician: Regina Worrell Referring Physician: Regina Worrell Allergies, Adverse Reactions, Alerts No Known Allergies Immunizations Given and Recorded Vaccine Date Status Refusal Reason [id number] 12y+ bivalent booster vax 06/23/22 Given influenza virus vaccine, inactivated 05/27/22 Give n influenza virus vaccine, inactivated 05/28/20 Give n influenza virus vaccine, inactivated 06/22/18 Give n influenza virus vaccine, inactivated 06/26/17 Give n influenza virus vaccine, inactivated 08/30/16 Give n influenza virus vaccine, inactivated 05/20/15 Give n SARS-CoV-2 mRNA (wwrxeyb-rhaj-ibylb) vax 11/02/21 Recorded SARS-CoV-2 (COVID-19) mRNA BNT-162b2 [...] puffs, Inhalation, 4 times a day, PRN, dutch label, # 25 Gm, Refills 11, Tot. Refills 11, Maintenance, 12/23/21 12:20:00 EDT, Aerosol, Route to Pharmacy Electronically, [id number], [facility]/pharmacy #[id number], 160.02, cm, ... Start [...] By Mouth, Daily, for cholesterol label in dutch, # 90 tablet, 1 Refills, Maintenance, 10/07/22 8:45:00 EDT, Tablet, [facility]/pharmacy #[id number], Partial fill [...] 0 Refills, Maintenance, 07/20/22 15:16:00 EST, Capsule, [facility]/pharmacy #[id number], Partial fill upon patient [...] pain and inflammation with food label in dutch, # 60 capsule, 3 Refills, Maintenance, 10/07/22 8:44:00 EDT, Capsule, [facility]/pharmacy #[id number], DiscontinueNabumetone, 160.02, cm, 10/07/22 8:16:00 EDT, Height Start Date: 10/07/22 Status: Ordered cetirizine 10 mg oral tablet 1 tablet, By Mouth, Daily, FOR ALLERGIES., # 30 tablet, 11 Refills, 04/14/22 14:32:00 EDT, [facility]/pharmacy #[id number], 160.02, cm, 04/14/22 14:24:00 EDT, Height, 113.18, kg, 04/20/20 14:58:00 EDT, Dry Weight Start Date: 04/14/22 Status: Ordered cloNIDine 0.1 mg oral tablet 0.1 mg, 1, tablet, By Mouth, 2 times a day, # 60 tablet, Refills 5, Tot. Refills 5, Maintenance, 01/05/23 10:05:00 EDT, Route to Pharmacy Electronically, [facility]/pharmacy #[id number], Partial fill upon patientrequest if [...] Refills, Maintenance, 01/04/23 10:54:00 EDT, [id number], 160.02, cm, 10/14/22 11:16:00 EDT, Height Start Date: 01/04/23 Status: Ordered escitalopram 20 mg oral tablet 0 Refills, Maintenance, 10/17/18 8:58:12 EDT Start Date: 10/17/18 Status: Ordered ferrous sulfate 325 mg oral enteric coated tablet 325 mg, 1, tablet, By Mouth, Daily, with food for anemia label in dutch, # 30 tablet, Refills 2, Tot. Refills 2, Maintenance, 08/11/22 15:48:00 EST, Route to Pharmacy Electronically, [facility]/pharmacy #[id number], Partial fill upon patient request if the [...] at bedtime, for nerve pain label in dutch, # 90 tablet, 1 Refills, Maintenance, 10/07/22 8:48:00 EDT, Tablet, [facility]/pharmacy #[id number], Partial fill [...] each, 11 Refills, Maintenance, 10/13/22 11:43:00 EDT, [facility], Partial fill upon patient request if [...] 2 hours if response unsatisfactory label in dutch, # 12 tablet, 2 Refills, Soft Stop, 05/27/22 17:10:00 EDT, Tablet, [facility]/pharmacy #[id number], Partial fill upon patient... Start Date: 05/27/22 Status: Ordered metFORMIN 750 mg oral tablet, extended release 1 tablet = 750 mg, By Mouth, Daily, for diabetes with evening meal label in dutch dosage adjustment, # 90 tablet, 1 Refills, Maintenance, 10/07/22 8:44:00 EDT, ER Tablet, [facility]/pharmacy #[id number], Partial fill upon [...] scalp apply a thin film label in dutch, # 60 mL, 1 Refills, Maintenance, 04/14/22 14:42:00 EDT, Lotion, [id number], 1 application Topically 2 times a day,Instr:for itchy scalp; apply a thi... Start Date: 04/14/22 Status: Ordered visco heel cups visco heel cups, See Instructions, # 1 pair, Refills 0, Tot. Refills 0, Maintenance, dutch. wear daily in tennis shoes for plantar [...] Associate Professional Member Role: PCP Address: Address: [address] [place] [address]- Care Team Related Persons Name: PAMELA CHAVEZ Address: home [address] [place] [id number] Name: NIK PÉREZ Address: home [address] [place] [address]
--- OUTSIDE RECORDS SUMMARY | 2023-08-09 10:43 | XMS_ITS | Continuity of Care Document ---
Author Name Unknown Organization [facility] Address [address] [place] [address]- Care Team Providers Care Extension Course Counselor Name Role Phone Passer Regina MA Primary Care Physician [place] [facility] [place] [facility] [id number] Date(s): 07/10/21 - 08/09/[address] [address]- Attending Physician: Sara Zaldivar Admitting Physician: Sara [...] Refills, Maintenance, 12/05/19 11:01:00 EDT, [facility]erosol, [id number], 2 puffs Inhalation 2 times a day,Instr:for asthma; rinse mouth... Start Date: 12/05/19 Status: Ordered Aerochamber w/Mask (Large) See Instructions, # 1 each, Maintenance, dx asthma use as needed, 06/28/17 15:17:40, Compound Start Date: 06/28/17 Status: Ordered albuterol 0.083% inhalation solution 3 mL = 2.5 mg, Inhalation, Every 4 hours, PRN for wheezing, # 75 each, 4 Refills, Maintenance, 12/05/19 11:01:00 EDT, Solution, [facility]/pharmacy #[id number], 160.02, cm, 06/14/19 11:58:00 EST, Height, 107.2, kg, 06/14/19 11:02:00 EST, Dry Weight Start Date: 12/05/19 Status: Ordered albuterol CFC free 90 mcg/inh inhalation aerosol 2, puffs, Inhalation, 4 times a day, PRN, american label, # 25 Gm, Refills 11, Tot. Refills 11, Maintenance, 12/05/19 11:01:00 EDT, Aerosol, Route to Pharmacy Electronically, [id number], [facility]/pharmacy #[id number], 160.02, cm, ... Start Date: 12/05/19 [...] 11/13/20 13:57:00 EDT, Route to Pharmacy Electronically, [facility]/pharmacy #[id number], 160.02, cm, 11/13/20 13:37:00 EDT, Height, [...] # 30 tablet, 5 Refills, [facility], 160.02, cm, 01/27/21 17:35:00 EDT, Height, 113.18, [...] FOR ALLERGIES, # 16 mL, 5 Refills, [id number], 30, USE 2 SPRAYS IN EACH NOSTRIL [...] Daily, for swelling in legs label in american, # 30 tablet, Refills 0, Tot. Refills 0, Maintenance, 10/29/20 17:53:00 EDT, Route to Pharmacy Electronically, [facility]/pharmacy #[id number], Partial fill upon patient request if the [...] WITH MEALS, # 30 tablet, 1 Refills, [facility], 160.02, cm, 01/27/21 17:35:00 EDT, Height, 113.18, kg, 04/20/20 14:58:00 EDT, Dry Weight Start Date: 06/08/21 Status: Ordered montelukast 10 mg oral tablet See Instructions, [facility], # 90 tablet, Refills 1, Instructions Replace Required Details, Route to Pharmacy Electronically, [facility], 160.02, cm, 01/27/21 17:35:00 EDT,Height, 113.18, kg, 04/20/20 14:58:00 EDT, Dry Weight Start Date: 05/28/21 Status: Ordered nabumetone 750 mg oral tablet 1 tablet = 750 mg, By Mouth, 2 times a day, for pain with food label in american, # 60 tablet, 3 Refills, Maintenance, 11/13/20 13:58:00 EDT, Tablet, [facility]/pharmacy #[id number], Partial fill upon patient request if [...] 02/06/20 10:08:00 EDT, [id number] 160.[facility], cm, 06/14/19 11:58:00 EST, Height, 107.2, kg, 06/14/19 11:02:00 EST, Dry Weight Start Date: 02/06/20 Stop Date: 01/31/21 Status: Ordered omeprazole 40 mg oral enteric coated capsule See Instructions, TOME BONIFACIO CAPSULA POR VIA ORAL [facility] [place], # 30 capsule, 11 Refills, 11/13/20 13:57:00 EDT, [facility]/pharmacy #[id number], 160.02, cm, 11/13/20 13:37:00 EDT, Height, [...]
--- OUTSIDE RECORDS SUMMARY | 2023-08-09 10:43 | XMS_ITS | Continuity of Care Document ---
Author Name Unknown Organization [facility] Address [address] [place] [address]- Care Team Providers Care Bell Cleaner Name Role Phone Passer Regina MA Primary Care Physician Encounter [facility] [place] Date(s): 10/16/20 - 11/15/20 [facility]/[address] [address]- Allergies, Adverse Reactions, Alerts Substance Reaction Severity [...] mouth and throat after use label in equatorial guinean, #60 each, 11 Refills, Maintenance, 12/05/19 11:01:00 EDT, [facility]erosol, [id number], 2 puffs Inhalation 2 times a day,Instr:for [...] puffs, Inhalation, 4 times a day, PRN, equatorial guinean label, # 25 Gm, Refills 11, Tot. Refills 11, Maintenance, 12/05/19 11:01:00 EDT, Aerosol, Route to Pharmacy Electronically, [id number], [facility]/pharmacy #[id number], 160.02, [...] 10 mg, By Mouth, Daily, for allergies equatorial guinean label, # 90 tablet, 1 Refills, Maintenance, 10/09/20 11:23:00 EDT, Tablet, [facility]/pharmacy #[id number], 160.02, cm, 09/21/20 14:20:00 [...] Daily in AM, for allergies label in equatorial guinean, # 16 Gm, 11 Refills, Maintenance, 12/05/19 11:01:00 EDT, [place], [facility]/pharmacy #[id number], 2 sprays Nares, Both Daily in AM,Instr:for allergies; label in equatorial guinean, 160.02, cm, 06/14/19 11:58... Start Date: 12/05/19 [...] Daily, for swelling in legs label in equatorial guinean, # 30 tablet, Refills 0, Tot. Refills [...] day, for pain with food label in equatorial guinean, # 60 tablet, 3 Refills, Maintenance, 11/13/20 [...] Daily, for allergy and asthma label in equatorial guinean, # 90 tablet, Refills 3,Tot. Refills 3, Maintenance, 12/05/19 11:01:00 EDT, [facility] Electronically, [facility] pair, Refills 0, Tot. Refills 0, Maintenance, equatorial guinean. wear daily in tennis shoes for plantar [...]
--- OUTSIDE RECORDS SUMMARY | 2023-08-09 10:43 | XMS_ITS | Continuity of Care Document ---
Author Name Unknown Organization [facility] Address [address] [place] [address]- Care Team Providers Care Custom Motorcycle Painter Name Role Phone Passer Regina MA Primary Care Physician En[place] [facility] [place] Date(s): 05/23/23 - 07/06/23 [facility] [address] [place] [address]- Attending Physician: Kobe Branham MD Referring Physician: Edwar PYLE, Aleksey Armenta Allergies, Adverse Reactions, Alerts No Known Allergies Immunizations Given and Recorded Vaccine Date Status Refusal Reason [id number] 12y+ bivalent booster vax 06/23/22 Given influenza virus vaccine, inactivated 05/27/22 Give n influenza virus vaccine, inactivated 05/28/20 Give n influenza virus vaccine, inactivated 06/22/18 Give n influenza virus vaccine, inactivated 06/26/17 Give n influenza virus vaccine, inactivated 08/30/16 Give n influenza virus vaccine, inactivated 05/20/15 Give n SARS-CoV-2 mRNA (vhripyr-bdda-eczuj) vax 11/02/21 Recorded SARS-CoV-2 (COVID-19) mRNA BNT-162b2 [...] 6 Refills, Maintenance, 04/21/23 13:33:00 EDT, Solution, [facility]/pharmacy #[id number], 160.02, cm, 04/21/23 8:18:00 EDT, Height, 114.36, kg, 04/21/23 8:18:00 EDT, Dry Weight Start Date: 04/21/23 Status: Ordered albuterol CFC free 90 mcg/inh inhalation aerosol 2, puffs, Inhalation, 4 times a day, PRN, tuvaluan label, # 25 Gm, Refills 11, Tot. Refills 11, Maintenance, 04/21/23 13:33:00 EDT, Aerosol, Route to Pharmacy Electronically, [id number], [facility]/pharmacy #[id number], 160.02, cm, [...] By Mouth, Daily, for cholesterol label in tuvaluan, # 90 tablet, 1 Refills, Maintenance, 04/21/23 13:33:00 EDT, Tablet, [facility]/pharmacy #[id number], Partial fill [...] 0 Refills, Maintenance, 07/20/22 15:16:00 EST, Capsule, [facility]/pharmacy #[id number], Partial fill [...] 30 tablet, 11 Refills, 04/21/23 13:33:00 EDT, [facility]/pharmacy #[id number], 160.02, cm, 04/21/23 8:18:00 EDT, Height, 114.36, kg, 04/21/23 8:18:00 EDT, Dry Weight Start Date: 04/21/23 Status: Ordered cloNIDine 0.1 mg oral tablet 0.1 mg, 1, tablet, By Mouth, 2 times a day, # 60 tablet, Refills 5, Tot. Refills 5, Maintenance, 01/05/23 10:05:00 EDT, Route to Pharmacy Electronically, [facility]/pharmacy #[id number], Partial fill upon patientrequest [...] tablet, 2 Refills, Maintenance, 04/21/23 13:33:00 EDT, [facility]/pharmacy #[id number], 160.02, cm, 04/21/23 8:18:00 EDT, Height, 114.36, kg, 04/21/23 8:18:00 EDT, Dry Weight Start Date: 04/21/23 Status: Ordered escitalopram 20 mg oral tablet 0 Refills, Maintenance, 10/17/18 8:58:12 EDT Start Date: 10/17/18 Status: Ordered ferrous sulfate 325 mg oral enteric coated tablet 325 mg, 1, tablet, By Mouth, Daily, with food for anemia label in tuvaluan, # 30 tablet, Refills 2, Tot. Refills 2, Maintenance, 08/11/22 15:48:00 EST, Route to Pharmacy Electronically, [facility]/pharmacy #[id number], Partial fill upon patient request if the pres... Start Date: 08/11/22 Status: Ordered Flovent HFA 110 mcg/inh inhalation aerosol 2 puffs, Inhalation, 2 times a day, for asthma control. rinse mouth and throat after use lable in tuvaluan, # 12 Gm, 11 Refills, Maintenance, 04/21/23 13:34:00 EDT, Aerosol, [facility]/pharmacy #[id number], Partial fill [...] at bedtime, for nerve pain label in tuvaluan, # 90 tablet, 1 Refills, Maintenance, 04/21/23 13:33:00 EDT, Tablet, [facility]/pharmacy #[id number], Partial fill upon patient request if the [...] each, 11 Refills, Maintenance, 10/13/22 11:43:00 EDT, [facility], Partial fill upon patient request if [...] 2 hours if response unsatisfactory label in tuvaluan, # 12 tablet, 2 Refills, Soft Stop, 04/21/23 13:33:00 EDT, Tablet, [facility]/pharmacy #[id number], Partial fill upon patient... Start Date: 04/21/23 Status: Ordered metFORMIN 500 mg oral tablet, extended release 2 tablet = 1,000 mg, By Mouth, 2 times a day, for blood sugar dosage adjustment label in tuvaluan, #360 tablet, 0 Refills, Maintenance, 05/09/23 22:48:00 EDT, ER Tablet, [facility]/pharmacy #[id number], Partial fill upon patient request if the prescription is fo... Start Date: 05/09/23 Status: Ordered nabumetone 750 mg oral tablet 1 tablet = 750 mg, By Mouth, 2 times a day, # 28 tablet, 0 Refills, Maintenance, 02/23/23 18:16:00 EDT, Tablet, [facility]/pharmacy #[id number], Partial fill [...] scalp apply a thin film label in tuvaluan, # 60 mL, 1 Refills, Maintenance, 04/14/22 14:42:00 EDT, Lotion, [id number], 1 application Topically 2 times a day,Instr:for itchy scalp; apply a thi... Start Date: 04/14/22 Status: Ordered visco heel cups visco heel cups, See Instructions, # 1 pair, Refills 0, Tot. Refills 0, Maintenance, tuvaluan. wear daily in tennis shoes for plantar [...] Care Team Personnel Name: Regina Worrell Position: [facility] PCO Associate Professional Member Role: PCP Address: Address: [address] [place] [address] Care Team Related Persons Name: SHARAD CHAVEZ Address: home [address] [address] Name: NIK PÉREZ Address: home [address] [address]
--- OUTSIDE RECORDS SUMMARY | 2023-08-09 10:43 | XMS_ITS | Continuity of Care Document ---
Author Name Unknown Organization [facility] Address [address] [place] [address]- Care Team Providers Care Certified Financial Planner Name Role Phone Passer Regina MA Primary Care Physician [place] [facility] [place] [facility] [place] [id number] Date(s): 05/02/23 - 05/02/23 [facility]/[place] [address]- Discharge Disposition: A-D/C Home Attending Physician: Not on Staff, Attending MD Admitting Physician: Not on Staff, Admitting MD Referring Physician: Not on Staff, Referring MD Allergies, Adverse Reactions, Alerts No Known Allergies Immunizations Given and Recorded Vaccine Date Status Refusal Reason [id number] 12y+ bivalent booster vax 06/23/22 Given influenza virus vaccine, inactivated 05/27/22 Give n influenza virus vaccine, inactivated 05/28/20 Give n influenza virus vaccine, inactivated 06/22/18 Give n influenza virus vaccine, inactivated 06/26/17 Give n influenza virus vaccine, inactivated 08/30/16 Give n influenza virus vaccine, inactivated 05/20/15 Give n SARS-CoV-2 mRNA (aupdsek-afvy-cmmdk) vax 11/02/21 Recorded SARS-CoV-2 (COVID-19) mRNA BNT-162b2 [...] 6 Refills, Maintenance, 04/21/23 13:33:00 EDT, Solution, [facility]/pharmacy #[id number], 160.02, cm, 04/21/23 8:18:00 EDT, Height, 114.36, kg, 04/21/23 8:18:00 EDT, Dry Weight Start Date: 04/21/23 Status: Ordered albuterol CFC free 90 mcg/inh inhalation aerosol 2, puffs, Inhalation, 4 times a day, PRN, icelandic label, # 25 Gm, Refills 11, Tot. Refills 11, Maintenance, 04/21/23 13:33:00 EDT, Aerosol, Route to Pharmacy Electronically, [id number], [facility]/pharmacy #[id number], 160.02, cm, 2... Start Date: 04/21/23 [...] By Mouth, Daily, for cholesterol label in icelandic, # 90 tablet, 1 Refills, Maintenance, 04/21/23 13:33:00 EDT, Tablet, [facility]/pharmacy #[id number], Partial fill upon patient request [...] Refills, Maintenance, 07/20/22 15:16:00 EST, Capsule, [facility]/pharmacy #[id number], Partial fill upon patient request [...] 30 tablet, 11 Refills, 04/21/23 13:33:00 EDT, [facility]/pharmacy #[id number], 160.02, cm, 04/21/23 8:18:00 EDT, Height, 114.36, kg, 04/21/23 8:18:00 EDT, Dry Weight Start Date: 04/21/23 Status: Ordered cloNIDine 0.1 mg oral tablet 0.1 mg, 1, tablet, By Mouth, 2 times a day, # 60 tablet, Refills 5, Tot. Refills 5, Maintenance, 01/05/23 10:05:00 EDT, Route to Pharmacy Electronically, [facility]/pharmacy #[id number], Partial fill upon patientrequest if [...] tablet, 2 Refills, Maintenance, 04/21/23 13:33:00 EDT, [facility]/pharmacy #[id number], 160.02, cm, 04/21/23 8:18:00 EDT, Height, 114.36, kg, 04/21/23 8:18:00 EDT, Dry Weight Start Date: 04/21/23 Status: Ordered escitalopram 20 mg oral tablet 0 Refills, Maintenance, 10/17/18 8:58:12 EDT Start Date: 10/17/18 Status: Ordered ferrous sulfate 325 mg oral enteric coated tablet 325 mg, 1, tablet, By Mouth, Daily, with food for anemia label in icelandic, # 30 tablet, Refills 2, Tot. Refills 2, Maintenance, 08/11/22 15:48:00 EST, Route to Pharmacy Electronically, [facility]/pharmacy #[id number], Partial fill upon patient request if the pres... Start Date: 08/11/22 Status: Ordered Flovent HFA 110 mcg/inh inhalation aerosol 2 puffs, Inhalation, 2 times a day, for asthma control. rinse mouth and throat after use lable in icelandic, # 12 Gm, 11 Refills, Maintenance, 04/21/23 13:34:00 EDT, Aerosol, [facility]/pharmacy #[id number], Partial fill upon patient request [...] at bedtime, for nerve pain label in icelandic, # 90 tablet, 1 Refills, Maintenance, 04/21/23 13:33:00 EDT, Tablet, [facility]/pharmacy #3451, Partial fill upon patient request if the [...] each, 11 Refills, Maintenance, 10/13/22 11:43:00 EDT, [facility], Partial fill upon patient request if [...] 2 hours if response unsatisfactory label in icelandic, # 12 tablet, 2 Refills, Soft Stop, 04/21/23 13:33:00 EDT, Tablet, [facility]/pharmacy #[id number], Partial fill upon patient... Start Date: 04/21/23 Status: Ordered metFORMIN 750 mg oral tablet, extended release See Instructions, TAKE 1 TABLET BY MOUTH DAILY FOR DIABETES WITH EVENING MEAL, # 90 tablet, 1 Refills, Maintenance, 03/17/23 21:58:00 EDT, [facility], 160.02, cm, 01/05/23 10:47:00 EDT, Height Start Date: 03/17/23 Status: Ordered nabumetone 750 mg oral tablet 1 tablet = 750 mg, By Mouth, 2 times a day, # 28 tablet, 0 Refills, Maintenance, 02/23/23 18:16:00 EDT, Tablet, [facility]/pharmacy #[id number], Partial fill upon patient request [...] scalp apply a thin film label in icelandic, # 60 mL, 1 Refills, Maintenance, 04/14/22 14:42:00 EDT, Lotion, [id number], 1 application Topically 2 times a day,Instr:for itchy scalp; apply a thi... Start Date: 04/14/22 Status: Ordered visco heel cups visco heel cups, See Instructions, # 1 pair, Refills 0, Tot. Refills 0, Maintenance, icelandic. wear daily in tennis shoes for plantar [...] Care Team Personnel Name: Regina Worrell Position: [facility] PCO Associate Professional Member Role: PCP Address: Address: [address] [place] [address]- Care Team Related Persons Name: SHARAD CHAVEZ Address: home [address] [address] Name: NIK PÉREZ Address: home [address] [address]
--- OUTSIDE RECORDS SUMMARY | 2023-08-09 10:43 | XMS_ITS | Continuity of Care Document ---
Author Name Unknown Organization [facility] ter Address [address] [place] [id number]- Care Team Providers Care Certified Prosthetist Name Role Phone Regina Worrell Primary Care Physician Encounter [facility] Date(s): 10/12/20 - 11/18/[address] [address] Attending Physician: Regina Worrell Admitting [...] mouth and throat after use label in portuguese, #60 each, 11 Refills, Maintenance, 12/05/19 11:01:00 EDT, [facility]erosol, [id number], 2 puffs Inhalation 2 times a day,Instr:for asthma; rinse mouth... Start Date: 12/05/19 Status: Ordered Aerochamber w/Mask (Large) See Instructions, # 1 each, Maintenance, dx asthma use as needed, 06/28/17 15:17:40, Compound Start Date: 06/28/17 Status: Ordered albuterol 0.083% inhalation solution 3 mL = 2.5 mg, Inhalation, Every 4 hours, PRN for wheezing, # 75 each, 4 Refills, Maintenance, 12/05/19 11:01:00 EDT, Solution, [facility]/pharmacy #[id number], 160.02, cm, 06/14/19 11:58:00 EST, Height, 107.2, kg, 06/14/19 11:02:00 EST, Dry Weight Start Date: 12/05/19 Status: Ordered albuterol CFC free 90 mcg/inh inhalation aerosol 2, puffs, Inhalation, 4 times a day, PRN, portuguese label, # 25 Gm, Refills 11, Tot. Refills 11, Maintenance, 12/05/19 11:01:00 EDT, Aerosol, Route to Pharmacy Electronically, [id number], [facility]/pharmacy #[id number], 160.02, cm, ... Start [...] 11/13/20 13:57:00 EDT, Route to Pharmacy Electronically, [facility]/pharmacy #[id number], 160.02, cm, 11/13/20 13:37:00 EDT, [...] 10 mg, By Mouth, Daily, for allergies portuguese label, # 90 tablet, 1 Refills, Maintenance, 10/09/20 11:23:00 EDT, Tablet, [facility]/pharmacy #[id number], 160.02, cm, 09/21/20 14:20:00 [...] Daily in AM, for allergies label in portuguese, # 16 Gm, 11 Refills, Maintenance, 12/05/19 11:01:00 EDT, [place], [facility]/pharmacy #[id number], 2 sprays Nares, Both Daily in AM,Instr:for allergies; label in portuguese, 160.02, cm, 06/14/19 11:58... Start Date: 12/05/19 [...] Daily, for swelling in legs label in portuguese, # 30 tablet, Refills 0, Tot. Refills 0, Maintenance, 10/29/20 17:53:00 EDT, Route to Pharmacy Electronically, [facility]/pharmacy #[id number], Partial fill upon patient [...] day, for pain with food label in portuguese, # 60 tablet, 3 Refills, Maintenance, 11/13/20 13:58:00 EDT, Tablet, [facility]/pharmacy #[id number], Partial fill upon patient [...] 02/06/20 10:08:00 EDT, Route to Pharmacy Electronically, [facility]/pharmacy #[id number], 160.02, cm, 06/14/19 11:58:00 EST, Height, 107.2, kg, 06/14/19 11:02:00 EST, Dry Weight Start Date: 02/06/20 Stop Date: 01/31/21 Status: Ordered omeprazole 40 mg oral enteric coated capsule See Instructions, TOME BONIFACIO CAPSULA POR VIA ORAL [place], # 30 capsule, 11 Refills, 11/13/20 13:57:00 EDT, [facility]/pharmacy #[id number], 160.02, cm, 11/13/20 13:37:00 EDT, [...] Daily, for allergy and asthma label in portuguese, # 90 tablet, Refills 3,Tot. Refills 3, Maintenance, 12/05/19 11:01:00 EDT, Route to Pharmacy Electronically, [facility]/pharmacy #[id number], 160.02, cm, 06/14/19 11:58:00 [...] pair, Refills 0, Tot. Refills 0, Maintenance, portuguese. wear daily in tennis shoes for plantar [...]
--- OUTSIDE RECORDS SUMMARY | 2023-08-09 10:43 | XMS_ITS | Continuity of Care Document ---
Author Name Unknown Organization [facility] ter Address [address] [place] [address]- Care Team Providers Care Axle Inspector Name Role Phone Passer Regina MA Primary Care Physician Encounter [place] Date(s): 08/24/22 - 09/23/[address] [address]- Allergies, Adverse Reactions, Alerts No Known Allergies Immunizations Given and Recorded Vaccine Date Status Refusal Reason [id number] 12y+ bivalent booster vax 06/23/22 Given influenza virus vaccine, inactivated 05/27/22 Give n influenza virus vaccine, inactivated 05/28/20 Give n influenza virus vaccine, inactivated 06/22/18 Give n influenza virus vaccine, inactivated 06/26/17 Give n influenza virus vaccine, inactivated 08/30/16 Give n influenza virus vaccine, inactivated 05/20/15 Give n SARS-CoV-2 mRNA ([id number]) vax 11/02/21 Recorded SARS-CoV-2 (COVID-19) mRNA BNT-162b2 [...] puffs, Inhalation, 4 times a day, PRN, saudi arabian label, # 25 Gm, Refills 11, Tot. Refills 11, Maintenance, 12/23/21 12:20:00 EDT, Aerosol, Route to Pharmacy Electronically, [id number], [facility]/pharmacy #[id number], 160.02, [...] 0 Refills, Maintenance, 07/20/22 15:16:00 EST, Capsule, [facility]/pharmacy #[id number], [...] Daily, with food for anemia label in saudi arabian, # 30 tablet, Refills 2, Tot. Refills 2, Maintenance, 08/11/22 15:48:00 EST, [facility], [facility] [...] 2 hours if response unsatisfactory label in saudi arabian, # 12 tablet, 2 Refills, Soft Stop, 05/27/22 17:10:00 EDT, Tablet, [facility]/pharmacy #[id number], Partial fill upon patient... Start Date: 05/27/22 Status: Ordered metFORMIN 500 mg oral tablet, extended release 1 tablet = 500 mg, By Mouth, Daily, for Diabetes with evening meal label in saudi arabian, # 30 tablet, 2Refills, Maintenance, 08/11/22 15:47:00 EST, ER Tablet, [facility]/pharmacy #[id number], Partial fill upon patient request if the prescription is for a schedule I... Start Date: 08/11/22 Status: Ordered nabumetone 750 mg oral tablet 1 tablet = 750 mg, By Mouth, 2 times a day, for pain with food label in saudi arabian, # 60 tablet, 6 Refills, Maintenance, 05/27/22 17:09:00 EDT, Tablet, [facility]/pharmacy [...] Refills, Maintenance, 08/30/22 9:01:00 EST, [id number], 160.02, cm, 08/09/22 10:52:00 EST, Height Start Date: 08/30/22 Status: Ordered traZODone 100 mg oral tablet 100 mg, 1, tablet, By Mouth, 2 times a day, # 180 tablet, Refills 0, Maintenance, 10/17/18 8:38:05 EDT Start Date: 10/17/18 Status: Ordered triamcinolone 0.025% topical lotion 1 application, Topically, 2 times a day, for itchy scalp apply a thin film label in saudi arabian, # 60 mL, 1 Refills, Maintenance, 04/14/22 14:42:00 EDT, Lotion, [facility]/pharmacy #[id number], 1 application Topically 2 times a day,Instr:for itchy scalp; apply a thi... Start Date: 04/14/22 Status: Ordered visco heel cups visco heel cups, See Instructions, # 1 pair, Refills 0, Tot. Refills 0, Maintenance, saudi arabian. wear daily in tennis shoes for plantar [...] Care Team Personnel Name: Regina Worrell Position: [facility] PCO Associate Professional Member Role: PCP Address: Address: [address] [place] [address]- Care Team Related Persons Name: PAMELA CHAVEZ Address: home [address] [address] Name: NIK PÉREZ Address: home [address] [place] [id number]
--- OUTSIDE RECORDS SUMMARY | 2023-08-09 10:43 | XMS_ITS | Continuity of Care Document ---
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 Name Role Phone Passer Regina MA Primary Care Physician Encounter [facility] Date(s): 12/26/19 - 03/05/20 [facility] [address] [address]- [facility] Attending Physician: Kaden Booker CNM Admitting Physician: Kaden Booker CNM Allergies, Adverse Reactions, Alerts Substance Reaction [...] mouth and throat after use label in marshallese, #60 each, 11 Refills, Maintenance, 12/05/19 11:01:00 EDT, [facility], [id number], 2 puffs Inhalation 2 times a day,Instr:for [...] puffs, Inhalation, 4 times a day, PRN, marshallese label, # 25 Gm, Refills 11, Tot. Refills 11, Maintenance, 12/05/19 11:01:00 EDT, Aerosol, Route to Pharmacy Electronically, [id number], [facility]/pharmacy #[id number], 160.02, cm, ... Start Date: 12/05/19 Status: Ordered amitriptyline 25 mg oral tablet 25 mg, 1, tablet, By Mouth, Daily at bedtime, for FERRERA and Fibromyalgia label in marshallese, # 90 tablet, Refills 0, Tot. Refills 0, Maintenance, 02/04/19 14:21:26 EDT, Route to Pharmacy Electronically, [id number], [facility]/pharmacy #... Start Date: 02/04/19 Status: Ordered Blood [...] 10 mg, By Mouth, Daily, for allergies marshallese label, # 90 tablet, 0 Refills, Maintenance, 11/05/19 8:25:00 EDT, Tablet, [facility]/pharmacy #[id number], 160.02, cm, [...] knee pain take with food label in marshallese, # 60 tablet, 2 Refills, Maintenance, 12/05/19 10:58:00 EDT, Tablet, [facility]/pharmacy #[id number], 160.02, cm, 06/14/19 11:58:00 EST, Height, 107.2, kg, 05/25... Start Date: 12/05/19 Status: Ordered escitalopram 20 mg oral tablet 0 Refills, Maintenance, 10/17/18 8:58:12 EDT Start Date: 10/17/18 Status: Ordered Flonase 50 mcg/inh nasal spray 2 sprays, Nares, Both, Daily in AM, for allergies label in marshallese, # 16 Gm, 11 Refills, Maintenance, 12/05/19 11:01:00 EDT, [place], [facility]/pharmacy #[id number], 2 sprays Nares, Both Daily in AM,Instr:for allergies; label in marshallese, 160.02, cm, 06/14/19 11:58... Start Date: 12/05/19 Status: Ordered ipratropium nasal 42 mcg/inh spray 2 sprays, Nares, Both, Daily at bedtime, [place]., # 1 each, 5 Refills, Maintenance, 01/22/18 11:32:47 EDT, 2 sprays Nares, Both Daily at bedtime,x30 days,Instr:[place]. Start Date: 7/2/18 Stop Date: 07/21/18 Status: Ordered knee brace [...] wash hands thoroughly after application label in marshallese, # 50 Gm, 3 Refills, Maintenance, 10/17/18 8:56:11 EDT, 1 applicator Topically 3 times a day,Instr:for shoulder and knee pain... Start Date: 10/17/18 Status: Ordered nabumetone 750 mg oral tablet 1 tablet = 750 mg, By Mouth, 2 times a day, for back, hip and knee pain take with food label in marshallese, # 60 tablet, 2 Refills, Maintenance, 12/05/19 10:58:00 EDT, Tablet, [facility]/pharmacy #[id number], 160.02, cm, [...] 30 capsule, 3 Refills, Maintenance, [facility], 160.02, cm, 06/14/19 11:58:00 EST, Height, 107.2, [...] Daily, for allergy and asthma label in marshallese, # 90 tablet, Refills 3,Tot. Refills 3, Maintenance, 12/05/19 11:01:00 EDT, [facility], [facility] scalp apply a thin film label in marshallese, # 60 mL, 1 Refills, Maintenance, 12/05/19 11:03:00 EDT, Lotion, [facility]/pharmacy #[id number], 1 application Topically 2 times a day,Instr:for itchy scalp; apply a thi... Start Date: 12/05/19 Status: Ordered visco heel cups visco heel cups, See Instructions, # 1 pair, Refills 0, Tot. Refills 0, Maintenance, marshallese. wear daily in tennis shoes for plantar [...] David Almanzar , 07/16/1998, Cesar , [birth year] ANA MARÍA Vang Social History Social History Type Response Smoking Status Never entered on: 12/13/18 Sex
--- OUTSIDE RECORDS SUMMARY | 2023-08-09 10:43 | XMS_ITS | Continuity of Care Document ---
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 Start Date: 12/05/19 Status: Ordered Aerochamber w/Mask (Large) See Instructions, # 1 each, Maintenance, dx asthma use as needed, 06/28/17 15:17:40, Compound Start Date: 06/28/17 Status: Ordered albuterol 0.083% inhalation solution 3 mL = 2.5 mg, Inhalation, Every 4 hours, PRN for wheezing, # 75 each, 4 Refills, Maintenance, 05/14/20 11:01:00 EDT, Solution, [facility]/pharmacy #[id number], 160.02, cm, 06/14/19 11:58:00 EST, Height, 107.2, kg, 06/14/19 11:02:00 EST, Dry Weight Start Date: 12/05/19 Status: Ordered albuterol CFC free 90 mcg/inh inhalation aerosol 2, puffs, Inhalation, 4 times a day, PRN, palauan label, # 25 Gm, Refills 11, Tot. Refills 11, Maintenance, 12/05/19 11:01:00 EDT, Aerosol, Route to Pharmacy Electronically, [id number], [facility]/pharmacy #[id number], 160.02, cm, ... Start Date: 12/05/19 [...] 11/13/20 13:57:00 EDT, Route to Pharmacy Electronically, [facility]/pharmacy #[id number], 160.02, cm, 11/13/20 13:37:00 EDT, Height, [...] 10 mg, By Mouth, Daily, for allergies palauan label, # 90 tablet, 1 Refills, Maintenance, 12/01/20 18:55:00 EDT, Tablet, [facility]/pharmacy #[id number], 160.02, cm, 11/13/20 13:37:00 EDT, Height, [...] Daily in AM, for allergies label in palauan, # 16 Gm, 5 Refills, Maintenance, 12/14/20 10:44:00 EDT, [place], [facility]/pharmacy #[id number], 2 sprays Nares, Both Daily in AM,Instr:for allergies; label in palauan, 160.02, cm, 11/13/20 13:37:... Start Date: 12/14/20 [...] Daily, for swelling in legs label in palauan, # 30 tablet, Refills 0, Tot. Refills 0, Maintenance, 10/29/20 17:53:00 EDT, Route to Pharmacy Electronically, [facility]/pharmacy #[id number], Partial fill upon patient request if [...] Mouth, Daily, for blood sugar label in palauan with evening meal, # 30 tablet, 1 Refills, Maintenance, 04/02/21 8:58:00 EDT, ER Tablet, [facility]/pharmacy #[id number], Partial fill upon patient request if the prescription is for a schedule... Start Date: 04/02/21 Status: Ordered montelukast 10 mg oral tablet See Instructions, GINO SOSAA [place], # 90 tablet, Refills 1, Maintenance, Instructions Replace Required Details, Route to Pharmacy Electronically, [facility]ORE [id number], 160.02, cm, 01/27/21 17:35:00 EDT, Height, 113.18, kg, 04/20/20 14:58:00... Start Date: 01/28/21 Status: Ordered nabumetone 750 mg oral tablet 1 tablet = 750 mg, By Mouth, 2 times a day, for pain with food label in palauan, # 60 tablet, 3 Refills, Maintenance, 11/13/20 13:58:00 EDT, Tablet, [facility]/pharmacy #[id number], Partial fill upon patient request if [...] 10:08:00 EDT, Route to Pharmacy Electronically, [facility]/pharmacy #[id number], 160.02, cm, 06/14/19 11:58:00 EST, Height, 107.2, kg, 06/14/19 11:02:00 EST, Dry Weight Start Date: 02/06/20 Stop Date: 01/31/21 Status: Ordered omeprazole 40 mg oral enteric coated capsule See Instructions, TOME BONIFACIO CAPSULA POR VIA ORAL [place], # 30 capsule, 11 Refills, 11/13/20 13:57:00 EDT, [facility]/pharmacy #[id number], 160.02, cm, 11/13/20 13:37:00 EDT, Height, [...]
--- OUTSIDE RECORDS SUMMARY | 2023-08-09 10:44 | XMS_ITS | Continuity of Care Document ---
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 D Tech Name Role Phone Regina Worrell Primary Care Physician Encounter [facility] [place] Date(s): 10/24/22 - 02/08/23 [facility] [address]- Attending Physician: Regina Worrell Admitting Physician: Regina Worrell Allergies, Adverse Reactions, Alerts No Known Allergies Immunizations Given and Recorded Vaccine Date Status Refusal Reason [id number] 12y+ bivalent booster vax 06/23/22 Given influenza virus vaccine, inactivated 05/27/22 Give n influenza virus vaccine, inactivated 05/28/20 Give n influenza virus vaccine, inactivated 06/22/18 Give n influenza virus vaccine, inactivated 06/26/17 Give n influenza virus vaccine, inactivated 08/30/16 Give n influenza virus vaccine, inactivated 05/20/15 Give n SARS-CoV-2 mRNA ([id number]) vax 11/02/21 Recorded SARS-CoV-2 (COVID-19) mRNA BNT-162b2 [...] 6 Refills, Maintenance, 01/11/22 11:04:00 EDT, Solution, [facility]/pharmacy #[id number], 160.02, cm, 11/10/21 8:41:00 EDT, Height, 113.18, kg, 04/20/20 14:58:00 EDT, Dry Weight Start Date: 01/11/22 Status: Ordered albuterol CFC free 90 mcg/inh inhalation aerosol 2, puffs, Inhalation, 4 times a day, PRN, ecuadorean label, # 25 Gm, Refills 11, Tot. Refills 11, Maintenance, 12/23/21 12:20:00 EDT, Aerosol, Route to Pharmacy Electronically, [id number], [facility]/pharmacy #[id number], 160.02, cm, ... Start Date: 12/23/21 Status: Ordered Alcohol pads Alcohol pads, See Instructions, # 100 each, Refills 6, Tot. Refills 6, Maintenance, Dx: T2DM, checkBS 1-2 times daily, 08/11/22 15:47:00 EST, Supply, 160.02, cm, 08/09/22 10:52:00 EST, Height Start Date: 08/11/22 Status: Ordered atorvastatin 20 mg oral tablet 1 tablet = 20 mg, By Mouth, Daily, for cholesterol label in ecuadorean, # 90 tablet, 1 Refills, Maintenance, 10/07/22 8:45:00 EDT, Tablet, [facility]/pharmacy #[id number], Partial fill upon patient request if [...] 0 Refills, Maintenance, 07/20/22 15:16:00 EST, Capsule, [facility]/pharmacy #[id number], Partial fill upon patient request if [...] pain and inflammation with food label in ecuadorean, # 60 capsule, 3 Refills, Maintenance, 10/07/22 8:44:00 EDT, Capsule, [facility]/pharmacy #[id number], DiscontinueNabumetone, 160.02, cm, 10/07/22 8:16:00 EDT, Height Start Date: 10/07/22 Status: Ordered cetirizine 10 mg oral tablet 1 tablet, By Mouth, Daily, FOR ALLERGIES., # 30 tablet, 11 Refills, 04/14/22 14:32:00 EDT, [facility]/pharmacy #[id number], 160.02, cm, 04/14/22 14:24:00 EDT, Height, 113.18, kg, 04/20/20 14:58:00 EDT, Dry Weight Start Date: 04/14/22 Status: Ordered cloNIDine 0.1 mg oral tablet 0.1 mg, 1, tablet, By Mouth, 2 times a day, # 60 tablet, Refills 5, Tot. Refills 5, Maintenance, 01/05/23 10:05:00 EDT, Route to Pharmacy Electronically, [facility]/pharmacy #[id number], Partial fill upon patientrequest if the [...] Refills, Maintenance, 01/04/23 10:54:00 EDT, [id number], 160.02, cm, 10/14/22 11:16:00 EDT, Height Start Date: 01/04/23 Status: Ordered escitalopram 20 mg oral tablet 0 Refills, Maintenance, 10/17/18 8:58:12 EDT Start Date: 10/17/18 Status: Ordered ferrous sulfate 325 mg oral enteric coated tablet 325 mg, 1, tablet, By Mouth, Daily, with food for anemia label in ecuadorean, # 30 tablet, Refills 2, Tot. Refills 2, Maintenance, 08/11/22 15:48:00 EST, Route to Pharmacy Electronically, [facility]/pharmacy #[id number], Partial fill upon patient request if the [...] at bedtime, for nerve pain label in ecuadorean, # 90 tablet, 1 Refills, Maintenance, 10/07/22 8:48:00 EDT, Tablet, [facility]/pharmacy #[id number], Partial fill upon patient request if [...] each, 11 Refills, Maintenance, 10/13/22 11:43:00 EDT, [facility], Partial fill upon patient request if the [...] 2 hours if response unsatisfactory label in ecuadorean, # 12 tablet, 2 Refills, Soft Stop, 05/27/22 17:10:00 EDT, Tablet, [facility]/pharmacy #[id number], Partial fill upon patient... Start Date: 05/27/22 Status: Ordered metFORMIN 750 mg oral tablet, extended release 1 tablet = 750 mg, By Mouth, Daily, for diabetes with evening meal label in ecuadorean dosage adjustment, # 90 tablet, 1 Refills, Maintenance, 10/07/22 8:44:00 EDT, ER Tablet, [facility]/pharmacy #[id number], Partial fill upon patient request if [...] scalp apply a thin film label in ecuadorean, # 60 mL, 1 Refills, Maintenance, 04/14/22 [...] Professional Member Role: PCP Address: Address: [address] [place] [address]- Care Team Related Persons Name: PAMELA CHAVEZ Address: home [address] [place] [id number] Name: NIK PÉREZ Address: home [address] [place] [id number]
== END 2023-08-09 10:45 | disposition home or self-care (01) ==
LOC: HO.HBST 10:38
PROVIDERS: PCP Physician Assistant Medical; Visit Provider Counselor Mental Health
DX: F43.10 Post-traumatic stress disorder, unspecified (principal); F32.A Depression, unspecified; F41.9 Anxiety disorder, unspecified
CPT/HCPCS: 90832

== ENCOUNTER → 2023-08-09 10:00 | Outpatient (BNVA) | payer OTHER, SELFPAY | PROVIDERS: PCP Physician Assistant Medical; Visit Provider Counselor Mental Health ==

== ENCOUNTER 2023-10-19 15:28 | Inpatient (IN) | payer MEDICAID, SELFPAY ==
[2023-10-19] VITALS (11 sets, daily range): BP systolic 87–114; BP diastolic 51–84; PULSE 104–142; RESP 12–26; TEMP 36.4–39; O2SAT 93–97; BMI 39.4
--- NOTE | ~2023-10-19 | XR_ITS ---
EXAMINATION: XR CHEST CLINICAL INFORMATION: Cough. COMPARISON: None available. TECHNIQUE: 2 views of the chest were obtained. FINDINGS: No significant abnormality is noted involving the heart, lungs, mediastinum, bony thorax or soft tissues. XR/XR chest 2V IMPRESSION: Unremarkable chest examination.
--- NOTE | ~2023-10-19 | CT_ITS ---
EXAMINATION: CT ABDOMEN AND PELVIS WITH CONTRAST CLINICAL INFORMATION: Right flank pain. COMPARISON: None available. TECHNIQUE: Multidetector volumetric images were obtained from the superior aspect of the liver through the pubic symphysis following administration 85 mL of Omnipaque 350 intravenous contrast. Sagittal and coronal reformatted images were obtained on the technologist's workstation. Oral contrast: No This CT examination was performed using dose optimization techniques as appropriate, variously including the following: *Automated exposure control *Adjustment of mA and/or kV according to patient size (this includes techniques or standardized protocols for targeted exams where dose is matched to indication/reason for exam; i.e. extremities or head) *Use of iterative reconstruction technique DLP: 888 mGy-cm FINDINGS: LUNG BASES: The heart size is normal. The lung bases are clear. LIVER, GALLBLADDER, AND BILIARY TREE: The liver is enlarged measuring 24 cm in cranial caudal length. Multilobulated infiltrating mass in the left hepatic lobe extending into medial segment. No intrahepatic ductal dilatation seen. The gallbladder is contracted. No radiopaque gallstone seen. PANCREAS: Unremarkable. SPLEEN: Unremarkable. ADRENAL GLANDS: Unremarkable. KIDNEYS AND URETERS: The kidneys are normal in size, shape, and attenuation. No hydronephrosis, hydroureter, or calculi seen. No perinephric stranding. There is a cortical scar in the midpole right kidney with adjacent 1.5 cm hypodensity cyst versus calyceal diverticulum. BLADDER: Unremarkable. GASTROINTESTINAL TRACT: There is scattered stool, diverticuli and gas seen throughout the colon without significant distention. There is mild mural thickening involving the sigmoid colon axial slice 71/3. Lesion is suspected. The small bowel loops are normal caliber. Appendix is normal caliber. No free air or free fluid seen. ABDOMINAL WALL: No significant hernia is appreciated. LYMPH NODES: There is abnormal right internal iliac lymph node measuring 1.7 cm on axial slice 75/3. VASCULAR: Unremarkable. PELVIC VISCERA: The uterus is anteverted and appears unremarkable. No free fluid. No pelvic or inguinal lymph nodes seen. Scattered phleboliths seen in pelvis. OSSEOUS STRUCTURES: There is bilateral L5 pars defect. No aggressive lytic or sclerotic process seen. CT/CT abdomen pelvis w IV con IMPRESSION: Hepatomegaly with multi lobulated infiltrating mass/nodules throughout the left hepatic lobe and caudate lobe. Primary versus metastatic lesion. There is diffuse mural thickening involving a short segment of sigmoid colon suspicious for a primary sigmoid lesion. Recommend colonoscopy. There is abnormal 1.7 cm right internal iliac lymph node on axial slice 75/3. Fleischner guidelines were followed.
--- NOTE | ~2023-10-19 | CT_ITS ---
EXAMINATION: CTA CHEST PE STUDY CLINICAL INFORMATION: elevated ddimer COMPARISON: 10/19/2023 chest x-ray and 10/11/[address] scan TECHNIQUE: Prior to contrast administration, noncontrast localization images were obtained. After the administration of 65 mL of Omnipaque nonionic IV contrast, contiguous thin slice helical images were obtained through the thorax. Reformatted MIP images in the coronal and sagittal planes were obtained at the acquisition workstation. This CT examination was performed using dose optimization techniques as appropriate, variously including the following: *Automated exposure control *Adjustment of mA and/or kV according to patient size (this includes techniques or standardized protocols for targeted exams where dose is matched to indication/reason for exam; i.e. extremities or head) *Use of iterative reconstruction technique DLP: 405 mGy-cm. FINDINGS: There is suboptimal opacification of the pulmonary arterial tree. There are however no central intraluminal pulmonary arterial filling defects present to suggest central pulmonary embolism. The peripheral branch vessels are less well delineated on this examination Minimal dependent basilar atelectasis right greater than left. No abnormal pulmonary nodules or masses are appreciated. No significant hilar or mediastinal adenopathy. There is no evidence of pleural effusion or pneumothorax. The heart is normal in size. No evidence of ventricular septal bowing or right heart strain. Great vessels are normal. Otherwise the mediastinum is unremarkable. There is no pericardial effusion or pericardial thickening. Limited evaluation of the upper abdominal viscera demonstrates the abnormal mass lesions within the visualized liver better delineated on the recent dedicated abdominal CT scan. CT/CT angio chest PE protocol IMPRESSION: 1. Suboptimal opacification of the pulmonary arterial tree. There is however no evidence for central pulmonary emboli. The peripheral branch vessels are less well delineated on this examination. 2. VTE: Negative.
--- NOTE | 2023-10-19 15:58 | ED_ITS ---
HPI - General Adult General Chief complaint: Fever Stated complaint: loss of blood, dehydrated Time Seen by Provider: 10/19/23 16:39 Source: patient, RN notes reviewed and old records reviewed Mode of arrival: ambulatory Limitations: language barrier (Patient declined interpreting services) History of Present Illness HPI narrative: 48-year-old female with past medical history significant for type 2 diabetes, obesity, sleep apnea, arthritis, fibromyalgia presents for evaluation of general malaise. She reports subjective fevers for last few days She reports increasing fatigue for about 1 month She reports that she has seen her primary doctor and was told that her hemoglobin is around 9.2 and usually low. She has since started iron supplementation Patient endorses burning with urination, right flank pain that has also been present last few days She has a dry cough Denies any sick contacts She reports subjective fevers and chills Patient was brought back to room 20 after she was triaged with her heart rate being found to be 142 and a temp of a 100.9?. Related Data Home Medications Medication Instructions Recorded Confirmed bupropion HCl 150 mg 24 hr tablet, 150 mg PO QAM 04/13/23 10/19/23 extended release cetirizine 10 mg tablet 10 mg PO DAILY allergies 04/13/23 10/19/23 cyclobenzaprine 5 mg tablet 5 mg PO BID@0900,1300 PRN Muscle 04/13/23 10/19/23 Spasm fluticasone propionate 50 2 spray intranasal BEDTIME 04/13/23 10/19/23 mcg/actuation nasal spray,suspension montelukast 10 mg tablet 10 mg PO DAILY 04/13/23 10/19/23 pantoprazole 40 mg tablet,delayed 40 mg PO DAILY 04/13/23 10/19/23 release triamcinolone acetonide 0.025 % 1 appl topical BID PRN itch 04/13/23 10/19/23 lotion albuterol sulfate 2.5 mg/3 mL 3 mg inhalation Q4H PRN breathing 10/19/23 10/19/23 (0.083 %) solution for nebulization amitriptyline 50 mg tablet 50 mg PO BEDTIME 10/19/23 10/19/23 atorvastatin 40 mg tablet 40 mg PO DAILY 10/19/23 10/19/23 bupropion HCl 300 mg 24 hr tablet, 300 mg PO QAM 10/19/23 10/19/23 extended release buspirone 10 mg tablet 10 mg PO BID PRN Anxiety 10/19/23 10/19/23 cyclobenzaprine 5 mg tablet 5 mg PO BEDTIME muscle pain 10/19/23 10/19/23 ferrous sulfate 325 mg (65 mg 325 mg PO DAILY 10/19/23 10/19/23 iron) tablet,delayed release gabapentin 600 mg tablet 600 mg PO BEDTIME neuropathic pain 10/19/23 10/19/23 metformin 500 mg tablet,extended 1,000 mg PO BID diabetes mellitus 10/19/23 10/19/23 release 24 hr rizatriptan 10 mg tablet 10 mg PO DAILY [id number] PRN migraine 10/19/23 10/19/23 Previous Rx's Medication Instructions Recorded albuterol sulfate 90 mcg/actuation 2 inh inhalation Q4-6H PRN 12/26/21 breath activated powder inhaler shortness of breath or wheezing #1 ea cholecalciferol (vitamin D3) 125 125 mcg PO DAILY 90 days #90 caps 05/25/23 mcg (5,000 unit) capsule iron,carbonyl 65 mg-vitamin C 125 1 tab PO DAILY 90 days #90 tabs 05/25/23 mg tablet,delayed release (Vitron-C) Allergies Allergy/AdvReac Type Severity Reaction Status Date / Time No Known Allergies Allergy Verified 10/19/23 15:57 Review of Systems 2 Constitutional: Constitutional: Reports body ache(s), Reports chills, Reports fever(s), Denies headache(s), Reports lethargy, Reports malaise and Reports weakness ENT: Denies headache(s) and Denies sore throat Cardiovascular: Cardiovascular: Denies chest pain and Denies dyspnea Respiratory: Respiratory: Reports cough and Denies dyspnea Gastrointestinal: Gastrointestinal: Reports abdominal pain, Denies nausea and Denies vomiting Genitourinary: Genitourinary: Reports flank pain Comments: Reports burning with urination Musculoskeletal: Musculoskeletal: Denies back pain Integumentary/Breasts: Skin/Breast: Denies rash Neurologic: Denies headache(s) and Reports weakness PMFSH Past Medical History Medical History (Updated 10/19/23 @ 21:12 by Ramos Vigil) Non-insulin dependent type 2 diabetes mellitus Migraines Fibromyalgia Mild intermittent asthma HLD (hyperlipidemia) Surgical History History of Ritchie colposuspension H/O knee surgery Family History Family History Mother Diabetes Father Leukemia Daughter Asthma Son No problems noted. Son No problems noted. Daughter No problems noted. Social History Social History Household Members: Children Housing: Apartment Alcohol intake: current Alcohol intake frequency: holidays/special occasions only Patient Tobacco Use Status: Never used Tobacco Smoked in Last 30 Days: No Use of substances other than those prescribed or required for medical reasons: No Advance Directives: No Advance Directives Information Provided: No Current occupational status: unemployed Physical Exam ED Vital Signs: Vital Signs - 24 hr 10/19/23 15:57 10/19/23 16:50 10/19/23 17:20 Temperature 100.9 F H 102.2 F H 102.2 F H Pulse Rate 142 H 138 H Respiratory Rate 18 20 Blood Pressure 105/73 103/84 Pulse Oximetry 94 97 Oxygen Delivery Method Room Air Room Air 10/19/23 17:49 10/19/23 18:05 10/19/23 18:20 Temperature 98.7 F 98.3 F Pulse Rate 114 H 110 H 107 H Respiratory Rate 20 19 23 H Blood Pressure 93/54 L 95/57 L 96/58 L Pulse Oximetry 95 93 93 Oxygen Delivery Method Room Air Room Air Room Air 10/19/23 18:35 10/19/23 19:05 Temperature 98.3 F Pulse Rate 106 H 104 H Respiratory Rate 19 12 Blood Pressure 87/66 L 97/51 L Pulse Oximetry 94 93 Oxygen Delivery Method Room Air Room Air BMI result Body Mass Index 39.4 Const General: healthy appearing, comfortable, no acute distress, alert and awake Nutritional Appearance: well nourished Orientation/consciousness: patient oriented x3 HENMT Head: Yes normocephalic and Yes atraumatic Eyes Eyelids: Yes eyelids normal Conjunctivae: conjunctivae normal Sclerae: sclerae normal Corneas: corneas normal Pupils: Equal, round and reactive pupils present EOM: EOMs intact bilaterally Neck Neck: Yes full ROM Resp Effort & Inspection: normal respiratory effort, able to speak in complete sentences, no audible wheezes and not labored Auscultation: clear to auscultation bilaterally Cardio Rhythm: regular rhythm GI Other: Soft, obese abdomen Inspection: No distended Palpation (GI): Soft to palpation, not firm, Tenderness to palpation present (GI) in the RLQ and in the RUQ, no guarding and not rigid Auscultation: normoactive bowel sounds Skin General skin exam: elasticity normal Neuro General: patient oriented x3 Cranial nerves: Yes CN's II-XII intact bilaterally, Yes Equal, round and reactive pupils present and Yes Bilaterally intact EOM present Cognition (Neuro): normal cognition Extrem Other: Moving all extremities well without any obvious deformities Course Course Course Narrative: RME:?48 yo female w/ history of anemia, MONICA, DM, obesity presents to the ED today for eval of subjective fevers, dysuria, and right flank pain radiating to groin. taking tylenol at home- last dose 2 days ago. no hx of renal stones. no sick contacts. denies cough, n/v/d, abd pain. labs, viral serology, UA ordered. tylenol given. Full HPI, ROS and PE to be performed by the primary ED provider. Reevaluation(s) Reevaluation #1: Patient is febrile with a leukocytosis of 19.8 K, a left shift, she is tachycardic, hypotensive, she meets sepsis criteria in a sepsis alert was called at this point. She appears to have a UTI so she was given ceftriaxone. Plan for CT scan of the abdomen pelvis to further evaluate. The patient was noted to be anemic with a hemoglobin 7.7 hematocrit 25.3. She denies any black or bloody stool or active bleeding. Time: 17:50 Reevaluation #2: Patient's CT scan finally resulted, this shows a likely primary sigmoid lesion with Mets to the liver. The patient was admitted at the time. I discussed with the admitting team, karen who discussed CT results with the patient and informed her of her cancer diagnosis Time: 21:07 Medications Administered Discontinued Medications Generic Name Dose Route Start Last Admin Trade Name Freq PRN Reason Stop Dose Admin Acetaminophen 975 mg 10/19/23 16:01 10/19/23 16:05 Acetaminophen 325 Mg Tablet PO 10/19/23 16:02 975 mg ONCE ONE Administration Sodium Chloride 1,000 mls @ 999 mls/hr 10/19/23 17:00 10/19/23 18:38 Ns IV 10/19/23 18:00 Infused .Q1H1M ROXIE Infusion Ceftriaxone Sodium 1 gm/ 50 mls @ 100 mls/hr 10/19/23 17:34 10/19/23 18:14 Sodium Chloride IV 10/19/23 18:03 Infused ONCE ONE Infusion Sodium Chloride 1,000 mls @ 999 mls/hr 10/19/23 18:00 10/19/23 20:25 Ns IV 10/19/23 19:00 Infused .Q1H1M ROXIE Infusion Sodium Chloride 3,027 mls @ 3,027 mls/hr 10/19/23 18:12 10/19/23 20:25 Ns 30 ml/kg infuse over 1 hr (3027 ml) 10/19/23 19:11 Infused IV Infusion .Q1H STA Iohexol 85 ml 10/19/23 19:18 10/19/23 19:18 Iohexol 350 Mg/Ml 100 Ml Infus..Btl IV 10/19/23 19:19 85 ml ONCE ONE Administration Medical Decision Making Medical Decision Making [facility] Narrative: 48-year-old female presents for evaluation of multiple complaints including fevers, body aches, cough, abdominal pain, burning with urination. Plan for broad workup including blood cultures, labs, chest x-ray, urinalysis. Chest x- ray will be ordered. Will have low suspicion to order CT scan of the abdomen pelvis. Given the burning with urination, right flank pain and fevers, pyelonephritis is favored to be most likely diagnosis at this time. We will treat with IV fluids, acetaminophen. Differential Diagnosis Differential Diagnoses: The differential diagnosis associated with the presentation includes Pyelonephritis Obstructive uropathy Acute appendicitis Cholecystitis Pancreatitis UTI Sepsis Consult Healthcare Provider Management of the patient was discussed with: Hospitalist Lab Data [facility] Lab Attestation statement: I reviewed the patient's lab results. Leukocytosis 19.8 K. The patient was anemic at 7.7 hemoglobin and hematocrit 25.3. Guaiac was negative. Patient has a thrombocytosis with a platelet count of 838 K. patient's lactic acid is elevated to 3.5 it with mild elevation of AST to 52, alk-phos to 347. 10/19/23 16:28 10/19/23 16:28 Labs: Lab Results 10/19/23 10/19/23 10/19/23 Range/Units 16:28 17:27 18:25 WBC 19.8 H (4.8-10.8) X10*3/uL RBC 3.87 L D (4.20-5.50) X10*6/uL Hgb 7.7 L D (12.0-16.0) g/dl Hct 25.3 L D (37.0-47.0) % MCV 65.4 L (80.0-98.0) fL MCH 19.9 L (27.0-33.0) pg MCHC 30.4 L (31.0-35.0) g/dl RDW 19.3 H (11.0-16.0) % Plt Count 838 H D (160-400) X10*3/uL MPV 8.5 L (9.4-12.3) fL Immature Gran % (Auto) 0.7 H (0.0-0.4) % Neut % (Auto) 77.9 H (45-73) % Lymph % (Auto) 14.4 L (20-40) % [place] % (Auto) 6.5 (2-11) % Eos % (Auto) 0.2 (0-4) % Baso % (Auto) 0.3 (0-2) % Lymph # (Auto) 2.8 (1.2-4.9) X10*3/uL [place] # (Auto) 1.3 H (0.1-1.2) X10*3/uL Eos # (Auto) 0.0 (0.0-0.4) X10*3/uL Baso # (Auto) 0.1 (0.0-0.2) X10*3/uL Abs Immat Gran (auto) 0.14 H (0.00-0.03) X10*3/uL Absolute Neuts (auto) 15.4 H (2.0-8.3) x10*3/uL Absolute Nucleated RBC 0.000 (0.0-0.012) X10*3/uL Nucleated RBC % (auto) 0.0 (0.0-0.2) /100WBC Sodium 136 (135-145) mmol/L Potassium 3.4 (3.3-5.1) mmol/L Chloride 97 (96-108) mmol/L Carbon Dioxide 27 (22-29) mmol/L Anion Gap 15 (12-20) BUN 6 L (9-16) mg/dL Creatinine 0.74 (0.5-1.4) mg/dL Estim Creat Clear Calc 107.6 Estimated GFR > 60 Random Glucose 114 (60-115) mg/dL Lactic Acid 3.5 H* (0.5-2.0) mmol/L Calcium 9.0 D (8.4-10.2) mg/dL Magnesium 1.9 (1.6-2.6) mg/dL Total Bilirubin 0.7 (0.0-1.0) mg/dL Direct Bilirubin 0.5 (0.0-0.5) mg/dL AST 52 H (5-31) U/L ALT 27 (0-31) U/L Alkaline Phosphatase 347 H (39-117) U/L Total Protein 6.9 (6.5-8.0) g/dL Albumin 2.9 L (3.5-5.0) g/dL Lipase 8 (8-78) U/L Urine Color Yellow Urine Appearance Cloudy Urine pH 6.0 (5.0-9.0) Ur Specific [place] 1.015 (1.005-1.025) Urine Protein 30 (1+) H (Neg-Trace) mg/dL Urine Glucose (UA) Negative (Negative) mg/dL Urine Ketones Negative (Negative) mg/dL Urine Blood Negative (Negative) Urine Nitrite Negative (Negative) Ur Leukocyte Esterase Moderate (2+) H (Negative) Urine RBC 0-2 (0-2) /HPF Urine WBC 21-50 H (0-5) /HPF Ur Squamous Epith Cells 11-20 (0-2) /HPF Urine Bacteria 4+ (None Seen) Hyaline Casts 3-5 (0-2) /LPF Urine Test NEGATIVE (NEGATIVE) Stool Occult Blood NEGATIVE (NEGATIVE) Influenza Type A (PCR) NEGATIVE (Negative) Influenza Type B (PCR) NEGATIVE (Negative) RSV RNA Qual (PCR) NEGATIVE (Negative) SARS-CoV-2 RNA (RT-PCR) NEGATIVE (Negative) Blood Type Antibody Screen 10/19/23 Range/Units 18:43 WBC (4.8-10.8) X10*3/uL RBC (4.20-5.50) X10*6/uL Hgb (12.0-16.0) g/dl Hct (37.0-47.0) % MCV (80.0-98.0) fL MCH (27.0-33.0) pg MCHC (31.0-35.0) g/dl RDW (11.0-16.0) % Plt Count (160-400) X10*3/uL MPV (9.4-12.3) fL Immature Gran % (Auto) (0.0-0.4) % Neut % (Auto) (45-73) % Lymph % (Auto) (20-40) % [place] % (Auto) (2-11) % Eos % (Auto) (0-4) % Baso % (Auto) (0-2) % Lymph # (Auto) (1.2-4.9) X10*3/uL [place] # (Auto) (0.1-1.2) X10*3/uL Eos # (Auto) (0.0-0.4) X10*3/uL Baso # (Auto) (0.0-0.2) X10*3/uL Abs Immat Gran (auto) (0.00-0.03) X10*3/uL Absolute Neuts (auto) (2.0-8.3) x10*3/uL Absolute Nucleated RBC (0.0-0.012) X10*3/uL Nucleated RBC % (auto) (0.0-0.2) /100WBC Sodium (135-145) mmol/L Potassium (3.3-5.1) mmol/L Chloride (96-108) mmol/L Carbon Dioxide (22-29) mmol/L Anion Gap (12-20) BUN (9-16) mg/dL Creatinine (0.5-1.4) mg/dL Estim Creat Clear Calc Estimated GFR Random Glucose (60-115) mg/dL Lactic Acid (0.5-2.0) mmol/L Calcium (8.4-10.2) mg/dL Magnesium (1.6-2.6) mg/dL Total Bilirubin (0.0-1.0) mg/dL Direct Bilirubin (0.0-0.5) mg/dL AST (5-31) U/L ALT (0-31) U/L Alkaline Phosphatase (39-117) U/L Total Protein (6.5-8.0) g/dL Albumin (3.5-5.0) g/dL Lipase (8-78) U/L Urine Color Urine Appearance Urine pH (5.0-9.0) Ur Specific [place] (1.005-1.025) Urine Protein (Neg-Trace) mg/dL Urine Glucose (UA) (Negative) mg/dL Urine Ketones (Negative) mg/dL Urine Blood (Negative) Urine Nitrite (Negative) Ur Leukocyte Esterase (Negative) Urine RBC (0-2) /HPF Urine WBC (0-5) /HPF Ur Squamous Epith Cells (0-2) /HPF Urine Bacteria (None Seen) Hyaline Casts (0-2) /LPF Urine Test (NEGATIVE) Stool Occult Blood (NEGATIVE) Influenza Type A (PCR) (Negative) Influenza Type B (PCR) (Negative) RSV RNA Qual (PCR) (Negative) SARS-CoV-2 RNA (RT-PCR) (Negative) Blood Type A Positive Antibody Screen NEGATIVE Independent Interpretation I performed an independent interpretation of an: Plain X-Ray (No focal infiltrates) Radiology Impression Discussion of test interpretation with radiology: I have reviewed the radiologist's reading. Radiologist Impression: Unremarkable chest examination IMPRESSION: Hepatomegaly with multi lobulated infiltrating mass/nodules throughout the left hepatic lobe and caudate lobe. Primary versus metastatic lesion. There is diffuse mural thickening involving a short segment of sigmoid colon suspicious for a primary sigmoid lesion. Recommend colonoscopy. There is abnormal 1.7 cm right internal iliac lymph node on axial slice 75/3. Discharge Plan Discharge Clinical Impression: Sepsis, Urinary tract infection, Anemia, Colonic mass Patient Disposition: Admitted As Inpatient
--- NOTE | 2023-10-19 15:59 | ECG_ITS ---
Test Reason : CHEST PAIN Blood Pressure : / mmHG Vent. Rate : 137 BPM Atrial Rate : 137 BPM P-R Int : 118 ms QRS Dur : 080 ms QT Int : 288 ms P-R-T Axes : 038 027 024 degrees QTc Int : 434 ms Sinus tachycardia Otherwise normal ECG When compared with ECG of 25-MAY-2023 10:56, T wave amplitude has decreased in Anterior leads Referred By: Uyen Minaya Electronically Signed By:Lincoln Holt
[2023-10-19] MEDS: Acetaminophen 325 MG TABLET 975 MG PO (16:05)
[2023-10-19 16:33] LABS: MANUAL DIFF FLAG NO
[2023-10-19 16:39] LABS: Basophils Absolute Auto 0.1 X10*3/uL (0.0-0.2); Basophils Percent Auto 0.3 % (0-2); Eosinophils Percent Auto 0.2 % (0-4); Hematocrit 25.3 % (37.0-47.0); Hemoglobin 7.7 g/dl (12.0-16.0); Imm Gran Abs Auto 0.14 X10*3/uL (0.00-0.03); Imm Gran Pct Auto 0.7 % (0.0-0.4); Lymphocytes Absolute Auto 2.8 X10*3/uL (1.2-4.9); Lymphocytes Percent Auto 14.4 % (20-40); Mean Corpuscular HGB Conc 30.4 g/dl (31.0-35.0); Mean Corpuscular Hemoglobin 19.9 pg (27.0-33.0); Mean Corpuscular Volume 65.4 fL (80.0-98.0); Mean Platelet Volume 8.5 fL (9.4-12.3); Monocytes Absolute Auto 1.3 X10*3/uL (0.1-1.2); Monocytes Percent Auto 6.5 % (2-11); Neutrophils Absolute Auto 15.4 x10*3/uL (2.0-8.3); Neutrophils Percent Auto 77.9 % (45-73); Platelet Count 838 X10*3/uL (160-400); Red Blood Count 3.87 X10*6/uL (4.20-5.50); Red Cell Distribution Width 19.3 % (11.0-16.0); White Blood Count 19.8 X10*3/uL (4.8-10.8)
[2023-10-19 16:42] LABS: Appearance Urine Cloudy; Glucose Urine UA Negative (Negative); Leukocyte Esterase Urine Moderate (2+) (Negative); Nitrite Urine Negative (Negative); Specific Gravity - Urine 1.015 (1.005-1.025); UMIC TRIGGER UACC YES; UPreg QC Valid YES; Urine Blood Negative (Negative); Urine Ketones Negative (Negative); Urine Pregnancy NEGATIVE (NEGATIVE); Urine Protein 30 (1+) mg/dL (Neg-Trace)
[2023-10-19 16:52] LABS: Alanine Aminotransferase 27 U/L (0-31); Albumin Level 2.9 g/dL (3.5-5.0); Alkaline Phosphatase 347 U/L (39-117); Anion Gap 15 (12-20); Aspartate Amino Transferase 52 U/L (5-31); Bilirubin Total 0.7 mg/dL (0.0-1.0); Blood Urea Nitrogen 6 mg/dL (9-16); Carbon Dioxide 27 mmol/L (22-29); Chloride 97 mmol/L (96-108); Creatinine Clr Calc Pharmacy 107.6; Estimated Glomerular Filt Rate > 60; Glucose Random 114 mg/dL (60-115); Lipase 8 U/L (8-78); Magnesium 1.9 mg/dL (1.6-2.6); Potassium 3.4 mmol/L (3.3-5.1); Sodium 136 mmol/L (135-145); Total Protein 6.9 g/dL (6.5-8.0)
[2023-10-19 16:55] LABS: Color Urine Yellow
--- NOTE | 2023-10-19 17:00 | PC.NURSE ---
Pt is coming from home, family member at bedside translating for pt per pt request. Pt reports feeling unwell X1 month, malaise, weakness and fatigue. Pt reports fever X1 week, all symptoms worsening. Pt denied any vomiting, diarrhea, CP, SOB, cough. Pt is alert and oriented, breathing slightly elevated. Skin clammy and hot. Rectal temp assessed and is 102.2 F. Pt noted to be tachycardic, placed on bedside monitoring coordinator and is sinus tachycardia 120-130s. Provider at bedside.
[2023-10-19] MEDS: 0.9 % Sodium Chloride 1,000 ML 999 ML IV ×2 (17:10→18:03)
[2023-10-19 17:15] LABS: Influenza A PCR NEGATIVE (Negative); Influenza B PCR NEGATIVE (Negative); Resp Syncy Virus RNA Qual PCR NEGATIVE (Negative); SARS COV2 PCR INHOUSE NEGATIVE (Negative)
[2023-10-19 17:22] LABS: Bilirubin Direct 0.5 mg/dL (0.0-0.5)
[2023-10-19 17:30] LABS: Bacteria Urine 4+ (None Seen); RBC Urine 0-2 /HPF (0-2); UACC Culture Trigger YES; WBC Urine 21-50 /HPF (0-5)
[2023-10-19] MEDS: cefTRIAXone sodium 1 GM in 0.9 % Sodium Chloride 50 ML IV (17:47)
[2023-10-19 18:12] LABS: Lactic Acid 3.5 mmol/L (0.5-2.0)
[2023-10-19 18:41] LABS: OBS Int Ctl Valid YES; OBS1 NEGATIVE (NEGATIVE)
--- NOTE | 2023-10-19 18:43 | PC.NURSE ---
Pts BP noted to be soft, 80s systolic. Pt remains alert and oriented, reports she overall feels better. Provider aware of BP, no changes at this time.
[2023-10-19] MEDS: iohexoL 350 MG/ML 100 ML INFUS..BTL 85 ML IV (19:18)
--- NOTE | 2023-10-19 19:32 | P.HPHOSP_ITS ---
History of Present Illness Date of Service: 10/19/23 <ANIL Painter - Last Filed: 10/19/23 21:29> Attending physician on admission: Cara Terrazas <ANIL Painter - Last Filed: 10/19/23 21:29> Chief Complaint: Generalized weakness <ANIL Painter - Last Filed: 10/19/23 21:29> Pt is a 48-year-old female with a PMH significant for?mild intermittent asthma, HLD, crp-snyrhon-ualzpkieu diabetes type 2, iron-deficiency anemia, and fibromyalgia who presents to the ED with?generalized weakness, anorexia, and lightheadedness and dizziness x2 weeks. Patient reports that over the past couple of days patient has felt much more weak than normal, and she felt her ?legs could not support? her. He has been having with difficulty walking and standing. Has experienced dizziness and lightheadedness with positional changes. Family is at bedside who also reports she has been pale looking for the past 2+ weeks. Has been to see her PCP for microcytic anemia and started on iron supplementation 1-2 months ago. Also notes approximately 1-2 months ago she noticed some bright red blood in the toilet and with wiping, though resolved after starting iron supplementation. Has had no rectal pain. Denies melena or dark colored stool. Does report burning with urination x1 week as well as subjective fever and chills. Also notes right lower flank pain. Has not been eating or drinking normally well for the past week. Denies chest pain/pressure, palpitations. No shortness of breath. Denies headache. In the ED pt was febrile up to 102.2, tachycardic up to 142, tachypneic up to 23, and soft BP as low as 87/66. Labs were significant for leukocytosis of 19.8, microcytic anemia of H&H 7.7/25.3 with MCV 65.4 (down from 11.0/35.5 on 05/25/2023), lactic acid 3.5, AST 52, alk-phos 347, and albumin 2.9. No significant electrolyte abnormalities. Renal function WNL. UA showing moderate leukocyte esterase with wbc's 25-50, and bacteria 4+. Stool negative for occult blood. Tested negative for influenza type a and B, RSV, and COVID. CXR showed unremarkable chest examination. CT?of abdomen and pelvis showing hepatomegaly with multi lobulated infiltrating mass/nodules throughout the left hepatic lobe and caudate lobe concerning for primary versus metastatic lesion. Also showed diffuse mural thickening involving a short segment of sigmoid colon suspicious for a primary sigmoid lesion; and an abnormal 1.7 cm right internal iliac lymph node. EKG demonstrated sinus tachycardia with no evidence of ST elevations or depressions. Pt was treated with acetaminophen, IVF, and ceftriaxone. Pt will be admitted to the hospital for treatment and further evaluation of UTI with sepsis and microcytic anemia likely secondary to sigmoid colon and liver lesions concerning for malignancy. <ANIL Painter - Last Filed: 10/19/23 21:29> Review of Systems 2 Review of Systems: Generalized weakness, difficulty walking and supporting herself Lightheadedness and dizziness Pallor Right lower abdominal and flank pain Burning with urination Fever and chills Denies nausea, vomiting, diarrhea No chest pain/pressure, palpitations No shortness of breath <ANIL Painter - Last Filed: 10/19/23 21:29> [facility] Medical History: Medical History (Updated 10/19/23 @ 21:12 by Ramos Vigil) Non-insulin dependent type 2 diabetes mellitus Migraines Fibromyalgia Mild intermittent asthma HLD (hyperlipidemia) <ANIL Painter - Last Filed: 10/19/23 21:29> Family History: Family History Mother Diabetes Father Leukemia Daughter Asthma Son No problems noted. Son No problems noted. Daughter No problems noted. <ANIL Painter - Last Filed: 10/19/23 21:29> Surgical History: Surgical History History of Ritchie colposuspension H/O knee surgery <ANIL Painter - Last Filed: 10/19/23 21:29> Social History: Social History Household Members: Children Housing: Apartment Alcohol intake: current Alcohol intake frequency: holidays/special occasions only Patient Tobacco Use Status: Never used Tobacco Smoked in Last 30 Days: No Use of substances other than those prescribed or required for medical reasons: No Advance Directives: No Advance Directives Information Provided: No Current occupational status: unemployed <ANIL Painter - Last Filed: 10/19/23 21:29> Meds Allergies/Adverse reactions: Allergies Allergy/AdvReac Type Severity Reaction Status Date / Time No Known Allergies Allergy Verified 10/19/23 15:57 <ANIL Painter - Last Filed: 10/19/23 21:29> Active Medications: Current Medications Acetaminophen (Acetaminophen 325 Mg Tablet) 650 mg PO Q6H PRN PRN Reason: Pain, Mild (Pain Scale 1-3) Dextrose (Dextrose 50 % 25 Gm/50 Ml Syringe) 25 gm IVPUSH Q15M PRN; Protocol PRN Reason: per Hypoglycemia Standing Ord. Glucose (Glucose Gel 15 Gm Gel..Gram.) 15 gm PO Q15M PRN; Protocol PRN Reason: per Hypoglycemia Standing Ord. Ceftriaxone Sodium 1 gm/ (Sodium Chloride) 50 mls @ 100 mls/hr IV Q24H [facility] Insulin Human Lispro (Insulin Lispro 100 Unit/Ml 3 Ml Vial) 0 unit SUBCUT QIDACHS [facility]; Protocol Melatonin (Melatonin 3 Mg Tablet) 6 mg PO BEDTIME PRN PRN Reason: Insomnia Ondansetron HCl (Ondansetron Hcl 4 Mg/2 Ml Vial) 4 mg IVPUSH Q8H PRN PRN Reason: Nausea and Vomiting Sodium Chloride (0.9 % Sodium Chloride Flush 3 Ml Syringe) 3 ml IVFLUSH [facility] <ANIL Painter - Last Filed: 10/19/23 21:29> Home medications: Home Medications Medication Instructions Recorded Confirmed Last Taken Type bupropion HCl 150 mg 24 hr tablet, 150 mg PO QAM 04/13/23 10/19/23 10/18/23 History extended release cetirizine 10 mg tablet 10 mg PO DAILY allergies 04/13/23 10/19/23 10/18/23 History cyclobenzaprine 5 mg tablet 5 mg PO BID@0900,1300 PRN Muscle 04/13/23 10/19/23 10/18/23 History Spasm fluticasone propionate 50 2 spray intranasal BEDTIME 04/13/23 10/19/23 10/18/23 History mcg/actuation nasal spray,suspension montelukast 10 mg tablet 10 mg PO DAILY 04/13/23 10/19/2310/17/24 History pantoprazole 40 mg tablet,delayed 40 mg PO DAILY 04/13/23 10/19/23 10/18/23 History release triamcinolone acetonide 0.025 % 1 appl topical BID PRN itch 04/13/23 10/19/23 Unknown History lotion albuterol sulfate 2.5 mg/3 mL 3 mg inhalation Q4H PRN breathing 10/19/23 10/19/23 Unknown History (0.083 %) solution for nebulization amitriptyline 50 mg tablet 50 mg PO BEDTIME 10/19/23 10/19/23 10/18/23 History atorvastatin 40 mg tablet 40 mg PO DAILY 10/19/23 10/19/23 10/18/23 History bupropion HCl 300 mg 24 hr tablet, 300 mg PO QAM 10/19/23 10/19/23 10/18/23 History extended release buspirone 10 mg tablet 10 mg PO BID PRN Anxiety 10/19/23 10/19/23 10/18/23 History cyclobenzaprine 5 mg tablet 5 mg PO BEDTIME muscle pain 10/19/23 10/19/23 10/18/23 History ferrous sulfate 325 mg (65 mg 325 mg PO DAILY 10/19/23 10/19/23 10/18/23 History iron) tablet,delayed release gabapentin 600 mg tablet 600 mg PO BEDTIME neuropathic pain 10/19/23 10/19/23 10/18/23 History metformin 500 mg tablet,extended 1,000 mg PO BID diabetes mellitus 10/19/23 10/19/23 10/18/23 History release 24 hr rizatriptan 10 mg tablet 10 mg PO DAILY MRX1 PRN migraine 10/19/23 10/19/23 10/18/23 History <ANIL Painter - Last Filed: 10/19/23 21:29> Physical Exam 2 Vital Signs and Narrative: Vital Signs: Last Vital Signs Temp 98.3 F 10/19/23 19:05 Pulse 104 H 10/19/23 19:05 Resp 12 10/19/23 19:05 BP 97/51 L 10/19/23 19:05 Pulse Ox 93 10/19/23 19:05 O2 Del Method Room Air 10/19/23 19:05 BMI result Body Mass Index 39.4 <ANIL Painter - Last Filed: 10/19/23 21:29> Constitutional: Alert, in no acute distress. Pale-looking. Mental Status: Oriented to person, place and time. Eyes: Pupils are equal, round, and reactive to light. Ear, Nose, and Throat: Oropharynx clear, mucous membranes moist. Ears and nose without deformities. Trachea midline. Respiratory: Clear to auscultation bilaterally. No wheezing, rales, or rhonchi. Cardiovascular: S1, S2, fast. No murmurs, rubs, or gallops. Gastrointestinal: Abdomen soft, non-distended, with RUQ and right flank tenderness. Normal bowel sounds. Back: No CVA tenderness. Neurologic: Cranial nerves II-XII are grossly intact bilaterally. No focal neurological deficits. Moves all extremities spontaneously. Skin: Warm, dry. Musculoskeletal: No cyanosis or clubbing. Extremities: No edema. Psychiatric: Normal mood and affect. <ANIL Painter - Last Filed: 10/19/23 21:29> Results Labs CBC and Chem 7: 10/19/23 16:28 10/19/23 16:28 <ANIL Painter - Last Filed: 10/19/23 21:29> Labs: Laboratory Results - last 24 hr 10/19/23 10/19/23 10/19/23 16:28 17:27 18:25 MCV 65.4 L MCH 19.9 L MCHC 30.4 L RDW 19.3 H Plt Count 838 H D MPV 8.5 L Immature Gran % (Auto) 0.7 H Neut % (Auto) 77.9 H Lymph % (Auto) 14.4 L Garza % (Auto) 6.5 Eos % (Auto) 0.2 Baso % (Auto) 0.3 Lymph # (Auto) 2.8 Garza # (Auto) 1.3 H Eos # (Auto) 0.0 Baso # (Auto) 0.1 Abs Immat Gran (auto) 0.14 H Absolute Neuts (auto) 15.4 H Absolute Nucleated RBC 0.000 Nucleated RBC % (auto) 0.0 Anion Gap 15 Estim Creat Clear Calc 107.6 Estimated GFR > 60 Random Glucose 114 Lactic Acid 3.5 H* Calcium 9.0 D Magnesium 1.9 Total Bilirubin 0.7 Direct Bilirubin 0.5 AST 52 H ALT 27 Alkaline Phosphatase 347 H Total Protein 6.9 Albumin 2.9 L Lipase 8 Urine Color Yellow Urine Appearance Cloudy Urine pH 6.0 Ur Specific Brilliant 1.015 Urine Protein 30 (1+) H Urine Glucose (UA) Negative Urine Ketones Negative Urine Blood Negative Urine Nitrite Negative Ur Leukocyte Esterase Moderate (2+) H Urine RBC 0-2 Urine WBC 21-50 H Ur Squamous Epith Cells 11-20 Urine Bacteria 4+ Hyaline Casts 3-5 Urine Test NEGATIVE Stool Occult Blood NEGATIVE Influenza Type A (PCR) NEGATIVE Influenza Type B (PCR) NEGATIVE RSV RNA Qual (PCR) NEGATIVE SARS-CoV-2 RNA (RT-PCR) NEGATIVE <ANIL Painter - Last Filed: 10/19/23 21:29> Imaging Radiologist's Impressions: Impressions Chest X-Ray 10/19/23 17:05 IMPRESSION: Unremarkable chest examination. <ANIL Painter - Last Filed: 10/19/23 21:29> Assessment and Plan (1) Urinary tract infection: Status: Acute <ANIL Painter - Last Filed: 10/19/23 21:29> (2) Anemia: Status: Acute <ANIL Painter - Last Filed: 10/19/23 21:29> Pt is a 48-year-old female with a PMH significant for?mild intermittent asthma, HLD, qpf-vfitmzm-oihjnwzuh diabetes type 2, iron-deficiency anemia, and fibromyalgia who presents to the ED with?generalized weakness, anorexia, and lightheadedness and dizziness x2 weeks. Pt will be admitted to the hospital for treatment and further evaluation of UTI with sepsis and microcytic anemia likely secondary to sigmoid colon and liver lesions concerning for malignancy. Acute UTI with sepsis UA positive for moderate leukocyte esterase, wbc's 21 through 50, 4+ bacteria; patient with burning with urination x1 week; no CVA tenderness Patient meets sepsis criteria: Fever, tachycardia, tachypnea, leukocytosis; lactic acid 3.5 Patient given IVF and started on broad-spectrum antibiotics in the ED Will treat with ceftriaxone, started 10/19/2023 Follow cultures Microcytic anemia H&H 7.7/25.3 with MCV 65.4, down from 11 0.0/35.5 on 05/25/2023 Patient is started on iron supplementation by PCP two months ago Likely secondary to suspicion for malignancy CT of abdomen and pelvis showing infiltrating mass/nodules throughout left hepatic and lobes, as well as suspicious lesion on sigmoid colon NPO for likely colonoscopy tomorrow GI consult Heme-Onc consult Follow CBC Mild intermittent asthma Not in acute exacerbation Continue home inhalers HLD Continue statin Fibromyalgia Continue amitriptyline, gabapentin Gav-dcabwqn-qonubkcgv diabetes type 2 Hold metformin SSI, diabetic diet once no longer NPO GERD PPI Migraines Rizatriptan Full Code Attending:?Dr. Terrazas DVT Prophylaxis: Pneumatic boots due to anemia close to transfusion threshold Pt will require a hospitalization of at least two nights for treatment of?UTI with sepsis and microcytic anemia likely secondary to sigmoid and liver lesions concerning for malignancy. Patient will require hospitalization for treatment with IV antibiotics, close monitoring of blood levels, transfusion as necessary, and specialist consultation with GI and heme Onc. <ANIL Painter - Last Filed: 10/19/23 21:29> Pt is a 48-year-old female with a PMH significant for?mild intermittent asthma, HLD, svc-revitcd-lzlzfuzlc diabetes type 2, iron-deficiency anemia, and fibromyalgia who presents to the ED with?generalized weakness, anorexia, and lightheadedness and dizziness x2 weeks. Pt will be admitted to the hospital for treatment and further evaluation of UTI with sepsis and microcytic anemia likely secondary to sigmoid colon and liver lesions concerning for malignancy. Acute UTI with sepsis UA positive for moderate leukocyte esterase, wbc's 21 through 50, 4+ bacteria; patient with burning with urination x1 week; no CVA tenderness Patient meets sepsis criteria: Fever, tachycardia, tachypnea, leukocytosis; lactic acid 3.5 Patient given IVF and started on broad-spectrum antibiotics in the ED Will treat with ceftriaxone, started 10/19/2023 Follow cultures Microcytic anemia H&H 7.7/25.3 with MCV 65.4, down from 11 0.0/35.5 on 05/25/2023 Patient is started on iron supplementation by PCP two months ago Likely secondary to suspicion for malignancy CT of abdomen and pelvis showing infiltrating mass/nodules throughout left hepatic and lobes, as well as suspicious lesion on sigmoid colon NPO for likely colonoscopy tomorrow [facility] ordered GI consult Heme-Onc consult Follow CBC Mild intermittent asthma Not in acute exacerbation Continue home inhalers HLD Continue statin Fibromyalgia Continue amitriptyline, gabapentin Kmv-plpaofu-pymhyykgr diabetes type 2 Hold metformin SSI, diabetic diet once no longer NPO GERD PPI Migraines Rizatriptan Full Code Attending:?Dr. Terrazas DVT Prophylaxis: Pneumatic boots due to anemia close to transfusion threshold Pt will require a hospitalization of at least two nights for treatment of?UTI with sepsis and microcytic anemia likely secondary to sigmoid and liver lesions concerning for malignancy. Patient will require hospitalization for treatment with IV antibiotics, close monitoring of blood levels, transfusion as necessary, and specialist consultation with GI and heme Onc. <Cara Terrazas MD - Last Filed: 10/19/23 21:38> Quality Stroke Does the patient have a stroke diagnosis?: No <ANIL Painter - Last Filed: 10/19/23 21:29> VTE Prior VTE?: No <ANIL Painter - Last Filed: 10/19/23 21:29> VTE Risk Level:: Medical - moderate - high <ANIL Painter - Last Filed: 10/19/23 21:29> VTE Device Contraindication: N/A - Device Ordered <ANIL Painter - Last Filed: 10/19/23 21:29> VTE Drug Contraindication: Treatment Not Indicated <ANIL Painter - Last Filed: 10/19/23 21:29>
[2023-10-19 19:34] LABS: Reflex Lactate? Lactic Acid Added
--- NOTE | 2023-10-19 20:40 | PHA.MEDREC ---
Pharmacy Consult ? Medication Reconciliation Pharmacy has completed the medication reconciliation. 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
--- NOTE | 2023-10-19 20:54 | PC.NURSE ---
this rn assumed care of pt @ 1900. pt family at bedside pt admitted regular diet order in place pt provided with sandwich admitting md changed diet order to npo. this rn mad aware that pt was given food to eat. per okay just remain npo going forward
[2023-10-19 21:18] LABS: ~Lactic Acid-LAB USE ONLY 2.9 mmol/L (0.5-2.0)
[2023-10-19 21:36] LABS: Glucose, Whole Blood 113 mg/dL (60-115)
[2023-10-19 21:43] LABS: Cancel Lactic Acid Canceled
[2023-10-19] MEDS: Amitriptyline HCl 50 MG TABLET PO (22:10)
[2023-10-19] MEDS: Fluticasone Propionate Nasal 16 GM SPRAY 2 SPRAY NOSTRIL-B (22:10)
[2023-10-19] MEDS: Gabapentin 600 MG TABLET PO (22:11)
[2023-10-19] MEDS: Cyclobenzaprine HCl 5 MG TABLET PO (22:11)
[2023-10-20] VITALS (13 sets, daily range): BP systolic 110–127; BP diastolic 56–79; PULSE 113–135; RESP 16–20; TEMP 35.8–37.6; O2SAT 92–99; BMI 40.9
[2023-10-20] MEDS: Acetaminophen 325 MG TABLET 650 MG PO ×2 (03:02→10:29)
[2023-10-20] MEDS: 0.9 % Sodium Chloride Flush 3 ML SYRINGE IVFLUSH (03:02)
[2023-10-20] MEDS: Omeprazole 20 MG CAPSULE.DR PO (05:48)
--- NOTE | 2023-10-20 06:25 | PC.NURSE ---
called respiratory therapy for CPAP x2.
[2023-10-20 06:33] LABS: MANUAL DIFF FLAG NO
[2023-10-20 06:56] LABS: Anion Gap 13 (12-20); Blood Urea Nitrogen 6 mg/dL (9-16); Calcium 8.4 mg/dL (8.4-10.2); Carbon Dioxide 27 mmol/L (22-29); Chloride 104 mmol/L (96-108); Creatinine Clr Calc Pharmacy 113.1; Estimated Glomerular Filt Rate > 60; Glucose Random 81 mg/dL (60-115); Iron 26 mcg/dL (30-160); Percent Iron Saturation 15 % (15-50); Potassium 3.3 mmol/L (3.3-5.1); Sodium 141 mmol/L (135-145); Total Iron Binding Capacity 174 mcg/dL (228-428); Unsaturated Iron Binding 148 ug/dL
[2023-10-20 07:05] LABS: Basophils Absolute Auto 0.1 X10*3/uL (0.0-0.2); Basophils Percent Auto 0.3 % (0-2); Eosinophils Absolute Auto 0.1 X10*3/uL (0.0-0.4); Eosinophils Percent Auto 0.7 % (0-4); Hematocrit 22.7 % (37.0-47.0); Imm Gran Abs Auto 0.14 X10*3/uL (0.00-0.03); Imm Gran Pct Auto 0.8 % (0.0-0.4); Lymphocytes Absolute Auto 2.6 X10*3/uL (1.2-4.9); Lymphocytes Percent Auto 14.2 % (20-40); Mean Corpuscular HGB Conc 29.5 g/dl (31.0-35.0); Mean Corpuscular Hemoglobin 19.9 pg (27.0-33.0); Mean Corpuscular Volume 67.6 fL (80.0-98.0); Mean Platelet Volume 8.8 fL (9.4-12.3); Monocytes Absolute Auto 1.4 X10*3/uL (0.1-1.2); Monocytes Percent Auto 7.7 % (2-11); Neutrophils Absolute Auto 13.7 x10*3/uL (2.0-8.3); Neutrophils Percent Auto 76.3 % (45-73); Platelet Count 717 X10*3/uL (160-400); Red Blood Count 3.36 X10*6/uL (4.20-5.50); Red Cell Distribution Width 19.6 % (11.0-16.0); White Blood Count 17.9 X10*3/uL (4.8-10.8)
[2023-10-20 07:05] LABS: Glucose, Whole Blood 80 mg/dL (60-115)
--- NOTE | 2023-10-20 07:53 | PM.GICN ---
History of Present Illness Data of Consult Service Date: 10/20/23 <Jose David Smith MD - Last Filed: 11/11/23 15:41> Requesting physician: Cara Terrazas <Jose David Smith MD - Last Filed: 11/11/23 15:41> Primary Care Provider: ANIL Vega <Jose David Smith MD - Last Filed: 11/11/23 15:41> HPI Reason for consult: anemia, sigmoid mass <Jose David Smith MD - Last Filed: 11/11/23 15:41> 48 year old Telugu-speaking with mild intermittent asthma, HLD, [id number] diabetes type 2, iron-deficiency anemia, and fibromyalgia seen at [facility] ED on 10/19/23 with?generalized weakness, anorexia, and lightheadedness and dizziness x 2 weeks. History obtain with the help of patient's daughter who was at the bedside. Patient reported worsening fatigue over the past few days, felt her ?legs could not support? her and has been having difficulty walking and standing. She complained of dizziness and lightheadedness with positional changes. Family reported pt has been looking pale for the past 2+ weeks. Pt was seen by her PCP for microcytic anemia and was started on iron supplementation 1-2 months ago. Pt notes painless bright red blood in the toilet and with wiping 1-2 months ago, lasted for a month and resolved after starting iron supplementation. She reports intermittent heartburn and denied abdominal pain, melena or dark colored stool and reported rt lower flank pain and burning with urination x1 week as well as subjective fever and chills. Has not been eating or drinking normally well for the past week and has lost 10 lbs Pt denied chest pain/pressure, palpitations, shortness of breath or headaches. Pt denies cardiac or pulmonary problems and uses a CPAP machine for sleep apnea. She denies smoking or ETOH abuse. Daughter reports pt was hospitalized for 2 months at [facility] in with a severe COVID infection. She was intubated for 3 weeks. 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 Patient's dad with leukemia at age 37 years. In the ED pt was febrile up to 102.2, tachycardic up to 142, tachypneic up to 23, and soft BP as low as 87/66. Labs showed leukocytosis of 19.8, microcytic anemia of H&H 7.7/25.3 with MCV 65.4 (down from 11.0/35.5 on 05/25/2023), lactic acid 3.5, AST 52, alk-phos 347, and albumin 2.9. No significant electrolyte abnormalities. Renal function WNL. UA showing moderate leukocyte esterase with wbc's 25-50, and bacteria 4+. Stool negative for occult blood. She tested negative for influenza type a and B, RSV, and COVID. CXR showed unremarkable chest examination. EKG demonstrated sinus tachycardia with no evidence of ST elevations or depressions. Pt was treated with acetaminophen, IVF, and ceftriaxone. She was admitted to [facility] for treatment and further evaluation of UTI with sepsis and microcytic anemia likely secondary to sigmoid colon and liver lesions concerning for malignancy 10/19/[address] SCAN SHOWED: Hepatomegaly with multi lobulated infiltrating mass/nodules throughout the left hepatic lobe and caudate lobe. Primary versus metastatic lesion. There is diffuse mural thickening involving a short segment of sigmoid colon suspicious for a primary sigmoid lesion. Recommend colonoscopy. There is abnormal 1.7 cm right internal iliac lymph node on axial slice 75/3. <Jose David Smith MD - Last Filed: 11/11/23 15:41> Review of Systems Review of Systems: Generalized weakness, difficulty walking and supporting herself Lightheadedness and dizziness Pallor Right lower abdominal and flank pain Burning with urination Fever and chills Denies nausea, vomiting, diarrhea No chest pain/pressure, palpitations No shortness of breath <Jose David Smith MD - Last Filed: 11/11/23 15:41> [facility] Past Medical History Medical History: Medical History Anemia Non-insulin dependent type 2 diabetes mellitus Migraines Fibromyalgia Mild intermittent asthma HLD (hyperlipidemia) <Jose David Smith MD - Last Filed: 11/11/23 15:41> Family History Family History: Family History Mother Diabetes Father Leukemia Daughter Asthma Son No problems noted. Son No problems noted. Daughter No problems noted. Paternal Grandfather Colon cancer Paternal Aunt Breast cancer <Jose David Smith MD - Last Filed: 11/11/23 15:41> Surgical History Surgical History: Surgical History Hx of tubal ligation History of Ritchie colposuspension H/O knee surgery <Jose David Smith MD - Last Filed: 11/11/23 15:41> Social History Social History: Social History Household Members: Family and Children Household Members Other:: 4 Housing: Apartment Do you presently have visiting nurse or other home services: Yes Alcohol intake: current Alcohol intake frequency: does not drink Patient Tobacco Use Status: Never used Tobacco Use of substances other than those prescribed or required for medical reasons: No Do you feel safe in your current relationship?: Yes Do you have a plan to hurt others: No Plan Patient : No service: No Current occupational status: unemployed <Jose David Smith MD - Last Filed: 11/11/23 15:41> Meds Allergies/Adverse reactions: Allergies Allergy/AdvReac Type Severity Reaction Status Date / Time No Known Allergies Allergy Verified 11/10/23 14:21 <Jose David Smith MD - Last Filed: 11/11/23 15:41> Active Medications: Current Medications Acetaminophen (Acetaminophen 325 Mg Tablet) 650 mg PO Q6H PRN PRN Reason: Pain, Mild (Pain Scale 1-3) Last Admin: 10/20/23 03:02 Dose: 650 mg Albuterol Sulfate (Albuterol Sulfate (0.083%) 2.5 Mg/3 Ml Vial.Neb) 3 mg INHALE Q4H PRN PRN Reason: Shortness of Breath/Wheezing Albuterol Sulfate (Albuterol Sulfate 90 Mcg 8 Gm Inhaler) 2 puff INHALE Q4H PRN PRN Reason: shortness of breath or wheezing Amitriptyline HCl (Amitriptyline Hcl 50 Mg Tablet) 50 mg PO BEDTIME [facility] Last Admin: 10/19/23 22:10 Dose: 50 mg Atorvastatin Calcium (Atorvastatin Calcium 40 Mg Tablet) 40 mg PO DAILY [facility] Bupropion HCl (Bupropion Hcl Xl 150 Mg Tab.Er.24h) 150 mg PO DAILY [facility] Bupropion HCl (Bupropion Hcl Xl 300 Mg Tab.Er.24h) 300 mg PO DAILY [facility] Buspirone HCl (Buspirone Hcl 10 Mg Tablet) 10 mg PO BID PRN PRN Reason: Anxiety Cyclobenzaprine HCl (Cyclobenzaprine Hcl 5 Mg Tablet) 5 mg PO BEDTIME [facility] Last Admin: 10/19/23 22:11 Dose: 5 mg Cyclobenzaprine HCl (Cyclobenzaprine Hcl 5 Mg Tablet) 5 mg PO BID@0900,1300 PRN PRN Reason: Muscle Spasm Dextrose (Dextrose 50 % 25 Gm/50 Ml Syringe) 25 gm IVPUSH Q15M PRN; Protocol PRN Reason: per Hypoglycemia Standing Ord. Ferrous Sulfate (Ferrous Sulfate 324 Mg Tablet.) 324 mg PO DAILY [facility] Fluticasone Propionate (Fluticasone Propionate Nasal 16 Gm [place]) 2 spray NOSTRIL-B BEDTIME [facility] Last Admin: 10/19/23 22:10 Dose: 2 spray Gabapentin (Gabapentin 600 Mg Tablet) 600 mg PO BEDTIME [facility] Last Admin: 10/19/23 22:11 Dose: 600 mg Glucose (Glucose Gel 15 Gm Gel..Gram.) 15 gm PO Q15M PRN; Protocol PRN Reason: per Hypoglycemia Standing Ord. Ceftriaxone Sodium 1 gm/ (Sodium Chloride) 50 mls @ 100 mls/hr IV Q24H [facility] Sodium Chloride (Ns) 100 mls @ 100 mls/hr IV ONCE ONE Stop: 10/20/23 08:51 Sodium Chloride (Ns) 100 mls @ 100 mls/hr IV ONCE ONE Stop: 10/20/23 08:51 Insulin Human Lispro (Insulin Lispro 100 Unit/Ml 3 Ml Vial) 0 unit SUBCUT Q6H [facility]; Protocol Last Admin: 10/20/23 04:15 Dose: Not Given Loratadine (Loratadine 10 Mg Tablet) 10 mg PO DAILY [facility] Melatonin (Melatonin 3 Mg Tablet) 6 mg PO BEDTIME PRN PRN Reason: Insomnia Montelukast Sodium (Montelukast Sodium 10 Mg Tablet) 10 mg PO DAILY [facility] Omeprazole (Omeprazole 20 Mg Capsule.) 20 mg PO DAILY@0630 [facility] Last Admin: 10/20/23 05:48 Dose: 20 mg Ondansetron HCl (Ondansetron Hcl 4 Mg/2 Ml Vial) 4 mg IVPUSH Q8H PRN PRN Reason: Nausea and Vomiting Sodium Chloride (0.9 % Sodium Chloride Flush 3 Ml Syringe) 3 ml IVFLUSH QSHIFT [facility] Last Admin: 10/20/23 07:37 Dose: Not Given Vitamin D (Cholecalciferol (Vitamin D3) 25 Mcg Tablet) 125 mcg PO DAILY [facility] <Jose David Smith MD - Last Filed: 11/11/23 15:41> Home medications: Home Medications ?Medication ?Instructions ?Recorded ?Confirmed ?Last Taken ?Type bupropion HCl 150 mg 24 hr tablet, 150 mg PO QAM 04/13/23 11/10/23 10/18/23 History extended release cetirizine 10 mg tablet 10 mg PO DAILY allergies 04/13/23 11/10/23 10/18/23 History cyclobenzaprine 5 mg tablet 5 mg PO BID@0900,1300 PRN Muscle 04/13/23 11/10/23 10/18/23 History Spasm fluticasone propionate 50 2 spray intranasal BEDTIME 04/13/23 11/10/23 10/18/23 History mcg/actuation nasal spray,suspension montelukast 10 mg tablet 10 mg PO DAILY 04/13/23 11/10/23 10/18/23 History pantoprazole 40 mg tablet,delayed 40 mg PO DAILY 04/13/23 11/10/23 10/18/23 History release triamcinolone acetonide 0.025 % 1 appl topical BID PRN itch 04/13/23 11/10/23 Unknown History lotion albuterol sulfate 2.5 mg/3 mL 3 mg inhalation Q4H PRN breathing 10/19/23 11/10/23 Unknown History (0.083 %) solution for nebulization amitriptyline 50 mg tablet 50 mg PO BEDTIME 10/19/23 11/10/23 10/18/23 History atorvastatin 40 mg tablet 40 mg PO DAILY 10/19/23 11/10/23 10/18/23 History bupropion HCl 300 mg 24 hr tablet, 300 mg PO QAM 10/19/23 11/10/23 10/18/23 History extended release buspirone 10 mg tablet 10 mg PO BID PRN Anxiety 10/19/23 11/10/23 10/18/23 History gabapentin 600 mg tablet 600 mg PO BEDTIME neuropathic pain 10/19/23 11/10/23 10/18/23 History metformin 500 mg tablet,extended 1,000 mg PO BID diabetes mellitus 10/19/23 11/10/23 10/18/23 History release 24 hr rizatriptan 10 mg tablet 10 mg PO DAILY MRX1 PRN migraine 10/19/23 11/10/23 10/18/23 History <Jose David Smith MD - Last Filed: 11/11/23 15:41> Physical Exam Vital Signs: Vital Signs: Last Vital Signs Temp 98.7 F 10/20/23 07:39 Pulse 118 H 10/20/23 07:39 Resp 20 10/20/23 07:39 BP 125/63 10/20/23 07:39 Pulse Ox 99 10/20/23 07:39 O2 Del Method CPAP 10/20/23 07:39 BMI result Body Mass Index 40.9 <Jose David Smith MD - Last Filed: 11/11/23 15:41> Const: General: cooperative, comfortable, awake and Physically active <Jose David Smith MD - Last Filed: 11/11/23 15:41> Nutritional Appearance: obese <Jose David Smith MD - Last Filed: 11/11/23 15:41> Orientation/consciousness: patient oriented x3 <Jose David Smith MD - Last Filed: 11/11/23 15:41> Resp: Effort & Inspection: normal respiratory effort, able to speak in complete sentences, no respiratory distress and no use of accessory muscles <Jose David Smith MD - Last Filed: 11/11/23 15:41> Cardio: Rate: tachycardic <Jose David Smith MD - Last Filed: 11/11/23 15:41> GI: Inspection: No distended <Jose David Smith MD - Last Filed: 11/11/23 15:41> Palpation (GI): Soft to palpation, nontender and Hepatomegaly present (Liver palpable in RLQ - firm to hard) <Jose David Smith MD - Last Filed: 11/11/23 15:41> Neuro: General: patient oriented x3, moves all extremities and CN's II-XI intact bilaterally <Jose David Smith MD - Last Filed: 11/11/23 15:41> Extrem: General: Yes no pedal edema <Jose David Smith MD - Last Filed: 11/11/23 15:41> Results Labs CBC & Chem 7: 10/22/23 07:14 10/22/23 07:14 <Jose David Smith MD - Last Filed: 11/11/23 15:41> Labs: Short CBC 10/19/23 Range/Units 16:28 WBC 19.8 H (4.8-10.8) X10*3/uL Hgb 7.7 L D (12.0-16.0) g/dl Hct 25.3 L D (37.0-47.0) % Plt Count 838 H D (160-400) X10*3/uL BMP 10/19/23 10/20/23 16:28 06:24 Sodium 136 141 Potassium 3.4 3.3 Chloride 97 104 Carbon Dioxide 27 27 BUN 6 L 6 L Creatinine 0.74 0.72 Calcium 9.0 D 8.4 D Liver Function 10/19/23 Range/Units 16:28 Total Bilirubin 0.7 (0.0-1.0) mg/dL Direct Bilirubin 0.5 (0.0-0.5) mg/dL AST 52 H (5-31) U/L ALT 27 (0-31) U/L Alkaline Phosphatase 347 H (39-117) U/L Albumin 2.9 L (3.5-5.0) g/dL Urine 10/19/23 Range/Units 16:28 Urine Color Yellow Urine Appearance Cloudy Urine pH 6.0 (5.0-9.0) Ur Specific [place] 1.015 (1.005-1.025) Urine Protein 30 (1+) H (Neg-Trace) mg/dL Urine Glucose (UA) Negative (Negative) mg/dL <Jose David Smith MD - Last Filed: 11/11/23 15:41> Assessment and Plan (1) Colonic mass: Status: Acute <Jose David Smith MD - Last Filed: 11/11/23 15:41> (2) Anemia: Status: Inactive <Jose David Smith MD - Last Filed: 11/11/23 15:41> (3) Abnormal CT scan, liver: Status: Acute <Jose David Smith MD - Last Filed: 11/11/23 15:41> 48 year old Telugu-speaking female admitted to [facility] with?generalized weakness, anorexia, and lightheadedness, dizziness due to anemia and urosepsis. Abd CT scan showed hepatomegaly with multi lobulated infiltrating mass/nodules throughout the left hepatic lobe and caudate lobe. Primary versus metastatic lesion. There is diffuse mural thickening involving a short segment of sigmoid colon suspicious for a primary sigmoid lesion. CEA > 3000 suggestive of primary GI malignancy with multiple liver mets Pt uses a CPAP machine for sleep apnea. RECOMMENDATIONS: 1. Agree with transfusion of 2 units of packed red blood cells, IV antibiotic and antiemetics. 2. Pt scheduled for colonoscopy on 10/23/23 (if urosepsis is controlled) Colonoscopy procedure and potential complications including bleeding, perforation, reaction to medication were reviewed with the patient with the help of her daughter. If fever and leucocytosis resolves, pt can be started on a clear liquid diet and given GoLYTELY prep on 10/22/23 <Jose David Smith MD - Last Filed: 11/11/23 15:41> Procedures Date of Service Date of Service: 11/11/23 <Jose David Smith MD - Last Filed: 11/11/23 15:41> 10/23/23 <Soraida Suh MD - Last Filed: 10/23/23 12:36>
[2023-10-20 07:56] LABS: Hemoglobin 6.7 g/dl (12.0-16.0)
[2023-10-20] MEDS: Loratadine 10 MG TABLET PO (09:20)
[2023-10-20] MEDS: Ferrous Sulfate 324 MG TABLET.DR PO (09:20)
[2023-10-20] MEDS: Cholecalciferol (Vitamin D3) 25 MCG TABLET 125 MCG PO (09:20)
[2023-10-20] MEDS: buPROPion HCl XL 300 MG TAB.ER.24H PO (09:20)
[2023-10-20] MEDS: Atorvastatin Calcium 40 MG TABLET PO (09:21)
[2023-10-20] MEDS: buPROPion HCl XL 150 MG TAB.ER.24H PO (09:21)
[2023-10-20] MEDS: Montelukast Sodium 10 MG TABLET PO (09:21)
[2023-10-20] MEDS: Cyclobenzaprine HCl 5 MG TABLET PO ×2 (09:49→20:18)
--- NOTE | 2023-10-20 10:24 | PM.HEMONCCN ---
Subjective - Subjective Chief complaint: Consult for: Colon carcinoma. Patient: new to practice Consult date: 10/20/23 Requesting Physician: Carole. Primary Care Provider: ANIL Vega Family Provider: Regina Barr. Medical Summary: DIAGNOSIS: COLON CARCINOMA. HPI - Consult Narrative Reason for consult: Consult for: Colon carcinoma. Narrative: Crista Sanchez is a 48 year old lady who presented to the ED with?generalized weakness, anorexia, and lightheadedness and dizziness x 2 1/2 weeks. Over the past couple of days she has felt much more weak than normal, and she felt her ?legs could not support? her. She has been having trouble walking and even standing. Has experienced dizziness and lightheadedness with positional changes. Family is at bedside who also reports she has been pale looking for the past 2+ weeks. Also notes approximately 1-2 months ago she noticed some bright red blood in the toilet and with wiping, though resolved after starting iron supplementation. Has had no rectal pain. Denies melena or dark colored stool. Has was seen by her PCP for microcytic anemia and started on iron supplementation 1 month ago. Does report burning with urination x1 week as well as subjective fever and chills. Also notes right lower flank pain. Has not been eating or drinking normally well for the past week. Denies chest pain/pressure, palpitations. No shortness of breath. Denies headache. Here she was febrile up to 102.2, tachycardic up to 142, tachypneic up to 23, and soft BP as low as 87/66. LABS: Leukocytosis of 19.8, microcytic anemia of H&H 7.7/25.3 with MCV 65.4 (down from 11.0/35.5 on 05/25/2023), lactic acid 3.5, AST 52, alk-phos 347, and albumin 2.9. No significant electrolyte abnormalities. Renal function WNL. UA showing moderate leukocyte esterase with wbc's 25-50, and bacteria 4+. Stool negative for occult blood. Tested negative for influenza type a and B, RSV, and COVID. CXR showed unremarkable chest examination. CT?of abdomen and pelvis showing hepatomegaly with multi lobulated infiltrating mass/nodules throughout the left hepatic lobe and caudate lobe concerning for primary versus metastatic lesion. Also showed diffuse mural thickening involving a short segment of sigmoid colon suspicious for a primary sigmoid lesion; and an abnormal 1.7 cm right internal iliac lymph node. EKG demonstrated sinus tachycardia with no evidence of ST elevations or depressions. Pt was treated with acetaminophen, IVF, and ceftriaxone. Pt was admitted to the hospital for treatment and further evaluation of UTI with sepsis. Microcytic anemia likely secondary to sigmoid colon and liver lesions concerning for malignancy. Review of Systems Review of Systems: Generalized weakness, difficulty walking & standing by herself Lightheadedness and dizziness Fever and chills Pallor Right lower abdominal and flank pain Burning with urination Denies nausea, vomiting, diarrhea No chest pain/pressure, palpitations No shortness of breath [facility] Medical History: Mild intermittent asthma, HLD, [id number] diabetes type 2, iron-deficiency anemia, and fibromyalgia. Non-insulin dependent type 2 diabetes mellitus Migraines Fibromyalgia Mild intermittent asthma HLD (hyperlipidemia) Family History: Mother Diabetes Father Leukemia Daughter Review of Systems - Constitutional Reports system reviewed and no additional complaints, except as documented, Reports anorexia, Reports fatigue, Reports lack of energy, Reports malaise, Reports poor appetite, Reports weakness, Reports weight loss - Eyes Reports system reviewed and no additional complaints, except as documented - ENT Reports system reviewed and no additional complaints, except as documented - Cardiovascular Reports system reviewed and no additional complaints, except as documented - Respiratory Reports no additional respiratory complaints - Gastrointestinal Reports system reviewed and no additional complaints, except as documented - Genitourinary Reports no additional female genitourinary complaints - Musculoskeletal Reports system reviewed and no additional complaints, except as documented - Integumentary/Breasts Skin/Breast: Reports no additional skin complaints - Neurologic Reports weakness, Denies headache(s) - Psychiatric Reports system reviewed and no additional complaints, except as documented - Endocrine Reports no additional endocrine complaints - Hematologic/Lymphatic Reports system reviewed and no additional complaints, except as documented - Allergic/Immunologic Reports system reviewed and no additional complaints, except as documented Oncology Screenings - ECOG Performance Status ECOG Performance Status: 2 [facility] Medical History: Medical History (Last Reviewed 10/23/23 @ 13:16 by Soraida Suh MD) Fibromyalgia HLD (hyperlipidemia) Migraines Mild intermittent asthma Non-insulin dependent type 2 diabetes mellitus Functional capacity: wheelchair bound Patient : No Family History: Family History (Last Reviewed 10/23/23 @ 13:16 by Soraida Suh MD) Mother Diabetes Father Leukemia Daughter Asthma Son No problems noted. Son No problems noted. Daughter No problems noted. Surgical History: Surgical History (Last Reviewed 10/23/23 @ 13:16 by Soraida Suh MD) H/O knee surgery History of Ritchie colposuspension Social History: Social History (Last Reviewed 10/23/23 @ 13:16 by Soraida Suh MD) Living Situation History: Household Members: Children Household Members Other:: 4 Housing: Apartment Do you presently have visiting nurse or other home services: Yes Tobacco History: Patient Tobacco Use Status: Never used Tobacco Occupation Assessmet: service: No Current occupational status: unemployed Home Medications and Allergies Current Medications: Current Medications Acetaminophen (Acetaminophen 325 Mg Tablet) 650 mg PO Q6H PRN PRN Reason: Pain, Mild (Pain Scale 1-3) Last Admin: 10/20/23 03:02 Dose: 650 mg Albuterol Sulfate (Albuterol Sulfate (0.083%) 2.5 Mg/3 Ml Vial.Neb) 3 mg INHALE Q4H PRN PRN Reason: Shortness of Breath/Wheezing Albuterol Sulfate (Albuterol Sulfate 90 Mcg 8 Gm Inhaler) 2 puff INHALE Q4H PRN PRN Reason: shortness of breath or wheezing Amitriptyline HCl (Amitriptyline Hcl 50 Mg Tablet) 50 mg PO BEDTIME [facility] Last Admin: 10/19/23 22:10 Dose: 50 mg Atorvastatin Calcium (Atorvastatin Calcium 40 Mg Tablet) 40 mg PO DAILY [facility] Last Admin: 10/20/23 09:21 Dose: 40 mg Bupropion HCl (Bupropion Hcl Xl 150 Mg Tab.Er.24h) 150 mg PO DAILY [facility] Last Admin: 10/20/23 09:21 Dose: 150 mg Bupropion HCl (Bupropion Hcl Xl 300 Mg Tab.Er.24h) 300 mg PO DAILY [facility] Last Admin: 10/20/23 09:20 Dose: 300 mg Buspirone HCl (Buspirone Hcl 10 Mg Tablet) 10 mg PO BID PRN PRN Reason: Anxiety Cyclobenzaprine HCl (Cyclobenzaprine Hcl 5 Mg Tablet) 5 mg PO BEDTIME [facility] Last Admin: 10/19/23 22:11 Dose: 5 mg Cyclobenzaprine HCl (Cyclobenzaprine Hcl 5 Mg Tablet) 5 mg PO BID@0900,1300 PRN PRN Reason: Muscle Spasm Last Admin: 10/20/23 09:49 Dose: 5 mg Dextrose (Dextrose 50 % 25 Gm/50 Ml Syringe) 25 gm IVPUSH Q15M PRN; Protocol PRN Reason: per Hypoglycemia Standing Ord. Ferrous Sulfate (Ferrous Sulfate 324 Mg Tablet.) 324 mg PO DAILY [facility] Last Admin: 10/20/23 09:20 Dose: 324 mg Fluticasone Propionate (Fluticasone Propionate Nasal 16 Gm Round O) 2 spray NOSTRIL-B BEDTIME [facility] Last Admin: 10/19/23 22:10 Dose: 2 spray Gabapentin (Gabapentin 600 Mg Tablet) 600 mg PO BEDTIME [facility] Last Admin: 10/19/23 22:11 Dose: 600 mg Glucose (Glucose Gel 15 Gm Gel..Gram.) 15 gm PO Q15M PRN; Protocol PRN Reason: per Hypoglycemia Standing Ord. Ceftriaxone Sodium 1 gm/ (Sodium Chloride) 50 mls @ 100 mls/hr IV Q24H [facility] Loratadine (Loratadine 10 Mg Tablet) 10 mg PO DAILY [facility] Last Admin: 10/20/23 09:20 Dose: 10 mg Melatonin (Melatonin 3 Mg Tablet) 6 mg PO BEDTIME PRN PRN Reason: Insomnia Montelukast Sodium (Montelukast Sodium 10 Mg Tablet) 10 mg PO DAILY [facility] Last Admin: 10/20/23 09:21 Dose: 10 mg Omeprazole (Omeprazole 20 Mg Capsule.) 20 mg PO DAILY@0630 [facility] Last Admin: 10/20/23 05:48 Dose: 20 mg Ondansetron HCl (Ondansetron Hcl 4 Mg/2 Ml Vial) 4 mg IVPUSH Q8H PRN PRN Reason: Nausea and Vomiting Sodium Chloride (0.9 % Sodium Chloride Flush 3 Ml Syringe) 3 ml IVFLUSH QSHIFT [facility] Last Admin: 10/20/23 07:37 Dose: Not Given Vitamin D (Cholecalciferol (Vitamin D3) 25 Mcg Tablet) 125 mcg PO DAILY [facility] Last Admin: 10/20/23 09:20 Dose: 125 mcg Home Medications ?Medication ?Instructions ?Recorded ?Confirmed ?Type bupropion HCl 150 mg 24 hr tablet, 150 mg PO QAM 04/13/23 10/19/23 History extended release cetirizine 10 mg tablet 10 mg PO DAILY allergies 04/13/23 10/19/23 History cyclobenzaprine 5 mg tablet 5 mg PO BID@0900,1300 PRN Muscle 04/13/23 10/19/23 History Spasm fluticasone propionate 50 2 spray intranasal BEDTIME 04/13/23 10/19/23 History mcg/actuation nasal spray,suspension montelukast 10 mg tablet 10 mg PO DAILY 04/13/23 10/19/23 History pantoprazole 40 mg tablet,delayed 40 mg PO DAILY 04/13/23 10/19/23 History release triamcinolone acetonide 0.025 % 1 appl topical BID PRN itch 04/13/23 10/19/23 History lotion albuterol sulfate 2.5 mg/3 mL 3 mg inhalation Q4H PRN breathing 10/19/23 10/19/23 History (0.083 %) solution for nebulization amitriptyline 50 mg tablet 50 mg PO BEDTIME 10/19/23 10/19/23 History atorvastatin 40 mg tablet 40 mg PO DAILY 10/19/23 10/19/23 History bupropion HCl 300 mg 24 hr tablet, 300 mg PO QAM 10/19/23 10/19/23 History extended release buspirone 10 mg tablet 10 mg PO BID PRN Anxiety 10/19/23 10/19/23 History cyclobenzaprine 5 mg tablet 5 mg PO BEDTIME muscle pain 10/19/23 10/19/23 History ferrous sulfate 325 mg (65 mg 325 mg PO DAILY 10/19/23 10/19/23 History iron) tablet,delayed release gabapentin 600 mg tablet 600 mg PO BEDTIME neuropathic pain 10/19/23 10/19/23 History metformin 500 mg tablet,extended 1,000 mg PO BID diabetes mellitus 10/19/23 10/19/23 History release 24 hr rizatriptan 10 mg tablet 10 mg PO DAILY MRX1 PRN migraine 10/19/23 10/19/23 History Allergies Allergy/AdvReac Type Severity Reaction Status Date / Time No Known Allergies Allergy Verified 10/19/23 15:57 Physical Exam Vital signs: Vital Signs Temp 97.8 F 10/20/23 10:22 Pulse 126 H 10/20/23 10:22 Resp 20 10/20/23 10:22 BP 123/70 10/20/23 10:22 Pulse Ox 99 10/20/23 07:39 O2 Del Method CPAP 10/20/23 07:39 Intake & Output 10/19/23 10/20/23 10/20/23 18:59 06:59 18:59 Intake Total 1050 / 5077 4027 / 5077 0 / 0 Balance 1050 / 5077 4027 / 5077 0 / 0 Intake: Intake (Blood Product) Amount 0 / 0 Red Blood Cells (E0382) Unit 0 / 0 [id number] Intake, IV Amount 1050 / 5077 4027 / 5077 0.9 % Sodium Chloride 3,027 ml 1000 / 5027 4027 / 5027 @ 3027 mls/hr IV .Q1H STA Rx#: [id number] cefTRIAXone sodium 1 gm In 0.9 50 / 50 % Sodium Chloride 50 ml @ 100 mls/hr IV ONCE ONE Rx#: [id number] Other: NPO Yes Last Bowel Movement 10/18/23 Weight 100.9 kg 104.8 kg [place] Weight in Grams [id number] Weight 104.8 kg - Constitutional Present: mild distress - Routine HEENT Exam Head: Present: normal inspection, normocephalic Eye: Present: normal appearance ENT: Present: mucous membranes moist - Routine Neck Exam Present: supple - Routine Respiratory Exam Present: CTAB - Routine Cardiovascular Exam Cardiovascular: Present: RRR, S1, S2 - Routine Abdominal Exam Present: normal bowel sounds, soft, tenderness - Routine Skin Exam Present: intact, normal turgor - Routine Neurological Exam Present: alert, oriented X3 - Detailed Neurological Exam: Coma Scale Eye Opening: Spontaneous (4) Verbal Response: Oriented (5) Motor Response: Obeys commands (6) Jarrell Coma Scale Total: 15 - Routine Psychiatric Exam Present: depressed Hem/Onc Consult Result - Labs CBC & Chem 7: 10/22/23 07:14 10/22/23 07:14 Labs: Short CBC 10/19/23 10/20/23 Range/Units 16:28 06:24 WBC 19.8 H 17.9 H (4.8-10.8) X10*3/uL Hgb 7.7 L D 6.7 L* (12.0-16.0) g/dl Hct 25.3 L D 22.7 L (37.0-47.0) % Plt Count 838 H D 717 H (160-400) X10*3/uL BMP 10/19/23 10/20/23 16:28 06:24 Sodium 136 141 Potassium 3.4 3.3 Chloride 97 104 Carbon Dioxide 27 27 BUN 6 L 6 L Creatinine 0.74 0.72 Calcium 9.0 D 8.4 D Liver Function 10/19/23 Range/Units 16:28 Total Bilirubin 0.7 (0.0-1.0) mg/dL Direct Bilirubin 0.5 (0.0-0.5) mg/dL AST 52 H (5-31) U/L ALT 27 (0-31) U/L Alkaline Phosphatase 347 H (39-117) U/L Albumin 2.9 L (3.5-5.0) g/dL Urine 10/19/23 Range/Units 16:28 Urine Color Yellow Urine Appearance Cloudy Urine pH 6.0 (5.0-9.0) Ur Specific [place] 1.015 (1.005-1.025) Urine Protein 30 (1+) H (Neg-Trace) mg/dL Urine Glucose (UA) Negative (Negative) mg/dL Assessment and Plan Patient Active problem list reviewed?: Yes (1) Colonic mass Status: Acute Assessment and plan: 48-year-old lady presents with?generalized weakness, anorexia, and lightheadedness and dizziness x2 weeks. Noted to have a leukocytosis and significant anemia. CBC from 10/18 revealed: WBC 19.8, HGB 7.7, HCT 25.3, MCV 65.4, PLT 838. Iron studies: 26/174/15/356. CEA level:3134. CAT scan of the abdomen pelvis from 09/20 revealed: Hepatomegaly with multi lobulated infiltrating mass/nodules throughout the left hepatic lobe and caudate lobe. Primary versus metastatic lesion. There is diffuse mural thickening involving a short segment of sigmoid colon suspicious for a primary sigmoid lesion. Recommend colonoscopy. There is abnormal 1.7 cm right internal iliac lymph node on axial slice 75/3. She has been admitted for further evaluation of microcytic anemia likely secondary to sigmoid colon and liver lesions concerning for malignancy. She needs tissue diagnosis. PLAN: She will be undergoing a colonoscopy, on Monday, for histological diagnosis. The other option is to proceed with biopsy of one of the liver lesions by Interventional Radiology. In the meantime patient is being transfused to help improve oxygen carrying capacity. Will make further plans based upon the biopsy results. She would be a candidate for systemic chemotherapy, FOLFOX plus bevacizumab. She will need a Port-A-Cath to facilitate that however will wait for the urosepsis to clear. Thank you for the consult, I will follow along with you, CC: Momo. Addendum: 10/23/23 Colonoscopy revealed: Sigmoid Colon: A polypoidal, ulcerated circumferential mass at 20 cms with luminal narrowing and partial obstruction. Pediatric colonoscope could not be advanced through the mass. A mid-size upper endoscope was used to traverse the mass into the distal transverse colon. Mass extended from 20 to 25 cms. Multiple biopsies were obtained and uli ink was injected at the proximal marginof the mass. 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 Further molecular testing is in progress. - Time Spent With Patient Time Spent with Patient (in minutes): 30
--- NOTE | 2023-10-20 10:29 | PC.NURSE ---
Addendum entered by Costa Donaldson RN 10/20/23 11:24: pt temp re-checked. Addendum entered by Costa Donaldson RN 10/20/23 10:48: informed MD of pt's increase in temp during blood tx and pt's increased HR since this AM Original Note: per MD administered tylenol d/t blood administratio
[2023-10-20 11:02] LABS: Vitamin B12 1378 pg/mL (200-900)
[2023-10-20 11:10] LABS: Glucose, Whole Blood 111 mg/dL (60-115)
[2023-10-20 11:37] LABS: Ferritin 356 ng/mL (10-250)
--- NOTE | 2023-10-20 12:23 | HO.PM.IMPN ---
Subjective Subjective Date of Service: 10/20/23 Interval History: seen and examined this morning follow up for anemia, colon/liver mass History obtained with the assistance of a language interpreter palpitations and weakness a little better no abdominal pain. She denies any rectal bleeding, hematuria, hematemesis Review of Systems Review of Systems: Yes all other systems are reviewed and are negative Constitutional Constitutional: Denies chills and Denies fever(s) Cardiovascular Cardiovascular: Denies chest pain, Denies palpitations and Denies dyspnea Respiratory Respiratory: Denies cough and Denies dyspnea Gastrointestinal Gastrointestinal: Denies abdominal pain, Denies diarrhea, Denies nausea and Denies vomiting Endocrine Endocrine: Denies palpitations Physical Exam Vital Signs: Vital Signs: Last Vital Signs Temp 98.1 F 10/20/23 11:56 Pulse 128 H 10/20/23 11:56 Resp 20 10/20/23 11:56 BP 119/56 L 10/20/23 11:56 Pulse Ox 93 10/20/23 11:56 O2 Del Method Room Air 10/20/23 11:56 BMI result Body Mass Index 40.9 Const: General: cooperative, comfortable, awake and Physically active Nutritional Appearance: obese Orientation/consciousness: patient oriented x3 Resp: Effort & Inspection: normal respiratory effort, able to speak in complete sentences, no respiratory distress and no use of accessory muscles Cardio: Rate: tachycardic GI: Inspection: No distended Palpation (GI): Soft to palpation and nontender Neuro: General: patient oriented x3, moves all extremities and CN's II-XI intact bilaterally Extrem: General: Yes no pedal edema Objective Data Active Medications Acetaminophen (Acetaminophen 325 Mg Tablet) 650 mg PO Q6H PRN PRN Reason: Pain, Mild (Pain Scale 1-3) Last Admin: 10/20/23 10:29 Dose: 650 mg Documented By: LAYA Albuterol Sulfate (Albuterol Sulfate (0.083%) 2.5 Mg/3 Ml Vial.Neb) 3 mg INHALE Q4H PRN PRN Reason: Shortness of Breath/Wheezing Albuterol Sulfate (Albuterol Sulfate 90 Mcg 8 Gm Inhaler) 2 puff INHALE Q4H PRN PRN Reason: shortness of breath or wheezing Amitriptyline HCl (Amitriptyline Hcl 50 Mg Tablet) 50 mg PO BEDTIME [facility] Last Admin: 10/19/23 22:10 Dose: 50 mg Documented By: MARAL Atorvastatin Calcium (Atorvastatin Calcium 40 Mg Tablet) 40 mg PO DAILY [facility] Last Admin: 10/20/23 09:21 Dose: 40 mg Documented By: LAYA Bupropion HCl (Bupropion Hcl Xl 150 Mg Tab.Er.24h) 150 mg PO DAILY [facility] Last Admin: 10/20/23 09:21 Dose: 150 mg Documented By: LAYA Bupropion HCl (Bupropion Hcl Xl 300 Mg Tab.Er.24h) 300 mg PO DAILY [facility] Last Admin: 10/20/23 09:20 Dose: 300 mg Documented By: LAYA Buspirone HCl (Buspirone Hcl 10 Mg Tablet) 10 mg PO BID PRN PRN Reason: Anxiety Cyclobenzaprine HCl (Cyclobenzaprine Hcl 5 Mg Tablet) 5 mg PO BEDTIME [facility] Last Admin: 10/19/23 22:11 Dose: 5 mg Documented By: MARAL Cyclobenzaprine HCl (Cyclobenzaprine Hcl 5 Mg Tablet) 5 mg PO BID@0900,1300 PRN PRN Reason: Muscle Spasm Last Admin: 10/20/23 09:49 Dose: 5 mg Documented By: LAYA Dextrose (Dextrose 50 % 25 Gm/50 Ml Syringe) 25 gm IVPUSH Q15M PRN; Protocol PRN Reason: per Hypoglycemia Standing Ord. Ferrous Sulfate (Ferrous Sulfate 324 Mg Tablet.) 324 mg PO DAILY [facility] Last Admin: 10/20/23 09:20 Dose: 324 mg Documented By: LAYA Fluticasone Propionate (Fluticasone Propionate Nasal 16 Gm [place]) 2 spray NOSTRIL-B BEDTIME [facility] Last Admin: 10/19/23 22:10 Dose: 2 spray Documented By: MARAL Gabapentin (Gabapentin 600 Mg Tablet) 600 mg PO BEDTIME [facility] Last Admin: 10/19/23 22:11 Dose: 600 mg Documented By: MARAL Glucose (Glucose Gel 15 Gm Gel..Gram.) 15 gm PO Q15M PRN; Protocol PRN Reason: per Hypoglycemia Standing Ord. Ceftriaxone Sodium 1 gm/ (Sodium Chloride) 50 mls @ 100 mls/hr IV Q24H [facility] Insulin Human Lispro (Insulin Lispro 100 Unit/Ml 3 Ml Vial) 0 unit SUBCUT QIDACHS [facility]; Protocol Last Admin: 10/20/23 10:50 Dose: Not Given Documented By: LAYA Non-Admin Reason: See Note Loratadine (Loratadine 10 Mg Tablet) 10 mg PO DAILY [facility] Last Admin: 10/20/23 09:20 Dose: 10 mg Documented By: LAYA Melatonin (Melatonin 3 Mg Tablet) 6 mg PO BEDTIME PRN PRN Reason: Insomnia Montelukast Sodium (Montelukast Sodium 10 Mg Tablet) 10 mg PO DAILY [facility] Last Admin: 10/20/23 09:21 Dose: 10 mg Documented By: LAYA Omeprazole (Omeprazole 20 Mg Capsule.Dr) 20 mg PO DAILY@0630 [facility] Last Admin: 10/20/23 05:48 Dose: 20 mg Documented By: NATA Ondansetron HCl (Ondansetron Hcl 4 Mg/2 Ml Vial) 4 mg IVPUSH Q8H PRN PRN Reason: Nausea and Vomiting Sodium Chloride (0.9 % Sodium Chloride Flush 3 Ml Syringe) 3 ml IVFLUSH QSHIFT [facility] Last Admin: 10/20/23 07:37 Dose: Not Given Documented By: LAYA Non-Admin Reason: See Note Vitamin D (Cholecalciferol (Vitamin D3) 25 Mcg Tablet) 125 mcg PO DAILY [facility] Last Admin: 10/20/23 09:20 Dose: 125 mcg Documented By: LAYA Labs 10/20/23 06:24 10/20/23 06:24 Labs: Laboratory Results - last 24 hr 10/19/23 10/19/23 10/19/23 16:28 17:27 18:25 MCV 65.4 L MCH 19.9 L MCHC 30.4 L RDW 19.3 H Plt Count 838 H D MPV 8.5 L Immature Gran % (Auto) 0.7 H Neut % (Auto) 77.9 H Lymph % (Auto) 14.4 L Coal % (Auto) 6.5 Eos % (Auto) 0.2 Baso % (Auto) 0.3 Lymph # (Auto) 2.8 Coal # (Auto) 1.3 H Eos # (Auto) 0.0 Baso # (Auto) 0.1 Abs Immat Gran (auto) 0.14 H Absolute Neuts (auto) 15.4 H Absolute Nucleated RBC 0.000 Nucleated RBC % (auto) 0.0 Smear Path Review Anion Gap 15 Estim Creat Clear Calc 107.6 Estimated GFR > 60 POC Glucose Random Glucose 114 Lactic Acid 3.5 H* Lactic Acid F/U @ 2Hr Calcium 9.0 D Magnesium 1.9 Iron TIBC % Saturation Unsat Iron Binding Ferritin 356 H Total Bilirubin 0.7 Direct Bilirubin 0.5 AST 52 H ALT 27 Alkaline Phosphatase 347 H Total Protein 6.9 Albumin 2.9 L Lipase 8 Carcinoembryonic Ag 3324.60 Vitamin B12 Urine Color Yellow Urine Appearance Cloudy Urine pH 6.0 Ur Specific [place] 1.015 Urine Protein 30 (1+) H Urine Glucose (UA) Negative Urine Ketones Negative Urine Blood Negative Urine Nitrite Negative Ur Leukocyte Esterase Moderate (2+) H Urine RBC 0-2 Urine WBC 21-50 H Ur Squamous Epith Cells 11-20 Urine Bacteria 4+ Hyaline Casts 3-5 Urine Test NEGATIVE Stool Occult Blood NEGATIVE Influenza Type A (PCR) NEGATIVE Influenza Type B (PCR) NEGATIVE RSV RNA Qual (PCR) NEGATIVE SARS-CoV-2 RNA (RT-PCR) NEGATIVE Blood Type Antibody Screen Crossmatch 10/19/23 10/19/23 10/19/23 18:43 20:55 21:31 MCV MCH MCHC RDW Plt Count MPV Immature Gran % (Auto) Neut % (Auto) Lymph % (Auto) Coal % (Auto) Eos % (Auto) Baso % (Auto) Lymph # (Auto) Coal # (Auto) Eos # (Auto) Baso # (Auto) Abs Immat Gran (auto) Absolute Neuts (auto) Absolute Nucleated RBC Nucleated RBC % (auto) Smear Path Review Anion Gap Estim Creat Clear Calc Estimated GFR POC Glucose 113 Random Glucose Lactic Acid Lactic Acid F/U @ 2Hr 2.9 H* Calcium Magnesium Iron TIBC % Saturation Unsat Iron Binding Ferritin Total Bilirubin Direct Bilirubin AST ALT Alkaline Phosphatase Total Protein Albumin Lipase Carcinoembryonic Ag Vitamin B12 Urine Color Urine Appearance Urine pH Ur Specific [place] Urine Protein Urine Glucose (UA) Urine Ketones Urine Blood Urine Nitrite Ur Leukocyte Esterase Urine RBC Urine WBC Ur Squamous Epith Cells Urine Bacteria Hyaline Casts Urine Test Stool Occult Blood Influenza Type A (PCR) Influenza Type B (PCR) RSV RNA Qual (PCR) SARS-CoV-2 RNA (RT-PCR) Blood Type A Positive Antibody Screen NEGATIVE Crossmatch See Detail 10/20/23 10/20/23 10/20/23 06:24 07:02 09:05 MCV 67.6 L MCH 19.9 L MCHC 29.5 L RDW 19.6 H Plt Count 717 H MPV 8.8 L Immature Gran % (Auto) 0.8 H Neut % (Auto) 76.3 H Lymph % (Auto) 14.2 L Coal % (Auto) 7.7 Eos % (Auto) 0.7 Baso % (Auto) 0.3 Lymph # (Auto) 2.6 Coal # (Auto) 1.4 H Eos # (Auto) 0.1 Baso # (Auto) 0.1 Abs Immat Gran (auto) 0.14 H Absolute Neuts (auto) 13.7 H Absolute Nucleated RBC 0.000 Nucleated RBC % (auto) 0.0 Smear Path Review SEE NOTE Anion Gap 13 Estim Creat Clear Calc 113.1 Estimated GFR > 60 POC Glucose 80 Random Glucose 81 Lactic Acid Lactic Acid F/U @ 2Hr Calcium 8.4 D Magnesium Iron 26 L TIBC 174 L % Saturation 15 Unsat Iron Binding 148 Ferritin Total Bilirubin Direct Bilirubin AST ALT Alkaline Phosphatase Total Protein Albumin Lipase Carcinoembryonic Ag 3134.00 Vitamin B12 1378 H Urine Color Urine Appearance Urine pH Ur Specific [place] Urine Protein Urine Glucose (UA) Urine Ketones Urine Blood Urine Nitrite Ur Leukocyte Esterase Urine RBC Urine WBC Ur Squamous Epith Cells Urine Bacteria Hyaline Casts Urine Test Stool Occult Blood Influenza Type A (PCR) Influenza Type B (PCR) RSV RNA Qual (PCR) SARS-CoV-2 RNA (RT-PCR) Blood Type Antibody Screen Crossmatch 10/20/23 10:42 MCV MCH MCHC RDW Plt Count MPV Immature Gran % (Auto) Neut % (Auto) Lymph % (Auto) Coal % (Auto) Eos % (Auto) Baso % (Auto) Lymph # (Auto) Coal # (Auto) Eos # (Auto) Baso # (Auto) Abs Immat Gran (auto) Absolute Neuts (auto) Absolute Nucleated RBC Nucleated RBC % (auto) Smear Path Review Anion Gap Estim Creat Clear Calc Estimated GFR POC Glucose 111 Random Glucose Lactic Acid Lactic Acid F/U @ 2Hr Calcium Magnesium Iron TIBC % Saturation Unsat Iron Binding Ferritin Total Bilirubin Direct Bilirubin AST ALT Alkaline Phosphatase Total Protein Albumin Lipase Carcinoembryonic Ag Vitamin B12 Urine Color Urine Appearance Urine pH Ur Specific [place] Urine Protein Urine Glucose (UA) Urine Ketones Urine Blood Urine Nitrite Ur Leukocyte Esterase Urine RBC Urine WBC Ur Squamous Epith Cells Urine Bacteria Hyaline Casts Urine Test Stool Occult Blood Influenza Type A (PCR) Influenza Type B (PCR) RSV RNA Qual (PCR) SARS-CoV-2 RNA (RT-PCR) Blood Type Antibody Screen Crossmatch Assessment and Plan (1) Colonic mass: Status: Acute (2) Anemia: Status: Acute Plan This is a 48-year-old female with a PMH significant for?mild intermittent asthma, HLD, add-uygukms-eqaznsezi diabetes type 2, iron-deficiency anemia, and fibromyalgia who presents to the ED with?generalized weakness, anorexia, and lightheadedness and dizziness found to have concern for UTI with sepsis and microcytic anemia likely secondary to sigmoid colon and liver lesions concerning for malignancy. sepsis due to UTI improving, white count trending down, afebrile, tachypnea resolved, remains tachycardic received 33/kg bolus + 2 additional L in ED. BP stable. urine culture growing GNR - follow final culture results continue IV ceftriaxone, started 10/19/2023 Blood cultures pending acute on chronic Microcytic anemia H/H trending down, will transfuse 2U RBC due to probable underlying malignancy CT of abdomen and pelvis showing infiltrating mass/nodules throughout left hepatic and lobes, as well as suspicious lesion on sigmoid colon CEA [id number] GI consult - plan for colonoscopy on Monday Heme-Onc consult pending follow CBC tachycardia, sinus likely due to anemia as fever has resolved ddimer negative, no hypoxia to suspect PE Mild intermittent asthma Not in acute exacerbation Continue home inhalers HLD Continue statin Fibromyalgia/mood Continue amitriptyline, wellbutrin, buspar, gabapentin Pov-[id number] diabetes type 2 Hold metformin ADA diet, SSI, follow POCs GERD PPI migraine rizatriptan is NF Full Code Attending:?Dr. Feliciano DVT Prophylaxis: Pneumatic boots due to anemia close to transfusion threshold Requires ongoing inpatient stay for treatment of?UTI with sepsis and microcytic anemia likely secondary to sigmoid and liver lesions concerning for malignancy. Patient will require hospitalization for treatment with IV antibiotics, close monitoring of blood levels, transfusion as necessary, and specialist consultation with GI and heme Onc. Quality Stroke Does the patient have a stroke diagnosis?: No VTE Prior VTE?: No VTE Risk Level:: Medical - moderate - high VTE Device Contraindication: N/A - Device Ordered VTE Drug Contraindication: Treatment Not Indicated
--- NOTE | 2023-10-20 13:22 | P.CDIM_ITS ---
PROVIDER RESPONSE TEXT: To clarify, the appropriate diagnosis supported by the clinical indicators: Morbid obesity QUERY TEXT: PHYSICIAN'S DOCUMENTATION REQUEST Date of Query: 10/20/2023 12:59 PM EDT Patient Name: Crista Kennedy Admit Date: 10/19/2023 Dear Jyoti Peters, A review of the medical record indicates additional documentation may be needed. Please review below and update the documentation accordingly. Clinical Indicators: Nursing assessment notes for Height and Weight 10/20/23 - Extreme obesity class III BMI 40.9 5ft 3in 104.8 kg If possible, please provide an associated diagnosis related to the abnormal BMI, such as: Morbid obesity Obesity Due to other cause Specify the other cause Severe or Morbid Obesity With alveolar hypoventilation Severe or Morbid Obesity Without alveolar hypoventilation Other (explain) Clinically unable to determine (explain) Thank you, Kayley Blackburn, CCS, CDIS Use of terms such as suspected, likely, concern for, or probable (associated with a specific diagnosi s that is being evaluated, monitored, or treated as if it exists) are acceptable and can be coded in the inpatient se tting, when documented at the time of discharge. Please use your independent medical judgment in providing your response. THIS QUERY IS PART OF THE PERMANENT MEDICAL RECORD
--- NOTE | 2023-10-20 14:50 | MHC.CM.PN ---
Met with pt and city director to complete CM intake assessment. Pt lives at home with her 3 adult children (24, 23, 19), they will transport her home. Pt states she has [facility] services 13/02, and also has [facility] but does not know which agency, pts daughter to verify and will let us know. HCP completed, now on file. PCP: Regina MA
[2023-10-20 16:35] LABS: Glucose, Whole Blood 105 mg/dL (60-115)
[2023-10-20] MEDS: cefTRIAXone sodium 1 GM in 0.9 % Sodium Chloride 50 ML IV (19:18)
[2023-10-20] MEDS: Amitriptyline HCl 50 MG TABLET PO (20:19)
[2023-10-20] MEDS: Gabapentin 600 MG TABLET PO (20:19)
[2023-10-20 20:52] LABS: Glucose, Whole Blood 182 mg/dL (60-115)
[2023-10-20] MEDS: Insulin Lispro 100 UNIT/ML 3 ML VIAL SUBCUT (20:52)
--- NOTE | 2023-10-20 22:51 | PC.NURSE ---
HR 120's 130's at rest and 140's with ambulation . pt denied sob , no cp no palpitation, DR Terrazas was notified .
[2023-10-21] VITALS (7 sets, daily range): BP systolic 102–137; BP diastolic 57–78; PULSE 117–133; RESP 17–20; TEMP 36.1–36.8; O2SAT 92–98
[2023-10-21] MEDS: 0.9 % Sodium Chloride Flush 3 ML SYRINGE IVFLUSH ×3 (00:48→21:00)
[2023-10-21] MEDS: Omeprazole 20 MG CAPSULE.DR PO (05:40)
[2023-10-21 06:32] LABS: MANUAL DIFF FLAG NO
[2023-10-21 06:53] LABS: Basophils Absolute Auto 0.1 X10*3/uL (0.0-0.2); Basophils Percent Auto 0.3 % (0-2); Eosinophils Absolute Auto 0.2 X10*3/uL (0.0-0.4); Eosinophils Percent Auto 1.2 % (0-4); Hematocrit 25.6 % (37.0-47.0); Imm Gran Abs Auto 0.12 X10*3/uL (0.00-0.03); Imm Gran Pct Auto 0.7 % (0.0-0.4); Lymphocytes Absolute Auto 2.5 X10*3/uL (1.2-4.9); Mean Corpuscular HGB Conc 31.3 g/dl (31.0-35.0); Mean Corpuscular Hemoglobin 21.3 pg (27.0-33.0); Mean Corpuscular Volume 68.1 fL (80.0-98.0); Mean Platelet Volume 8.6 fL (9.4-12.3); Monocytes Absolute Auto 0.9 X10*3/uL (0.1-1.2); Monocytes Percent Auto 5.6 % (2-11); Neutrophils Absolute Auto 12.7 x10*3/uL (2.0-8.3); Neutrophils Percent Auto 77.2 % (45-73); Platelet Count 672 X10*3/uL (160-400); Red Blood Count 3.76 X10*6/uL (4.20-5.50); Red Cell Distribution Width 21.2 % (11.0-16.0); White Blood Count 16.5 X10*3/uL (4.8-10.8)
[2023-10-21 06:57] LABS: Anion Gap 13 (12-20); Blood Urea Nitrogen 5 mg/dL (9-16); Calcium 8.4 mg/dL (8.4-10.2); Carbon Dioxide 27 mmol/L (22-29); Chloride 101 mmol/L (96-108); Creatinine Clr Calc Pharmacy 133.5; Estimated Glomerular Filt Rate > 60; Glucose Random 79 mg/dL (60-115); Potassium 3.2 mmol/L (3.3-5.1); Sodium 138 mmol/L (135-145)
[2023-10-21 07:17] LABS: Glucose, Whole Blood 80 mg/dL (60-115)
[2023-10-21 08:15] LABS: D Dimer High Sensitivity 2355 NG/ML
[2023-10-21] MEDS: Montelukast Sodium 10 MG TABLET PO (09:17)
[2023-10-21] MEDS: Cholecalciferol (Vitamin D3) 25 MCG TABLET 125 MCG PO (09:17)
[2023-10-21] MEDS: Ferrous Sulfate 324 MG TABLET.DR PO (09:17)
[2023-10-21] MEDS: buPROPion HCl XL 150 MG TAB.ER.24H PO (09:17)
[2023-10-21] MEDS: buPROPion HCl XL 300 MG TAB.ER.24H PO (09:17)
[2023-10-21] MEDS: Loratadine 10 MG TABLET PO (09:17)
[2023-10-21] MEDS: Potassium Chloride ER 20 MEQ TAB.ER.PRT 40 MEQ PO ×2 (09:17→21:00)
[2023-10-21] MEDS: 0.9 % Sodium Chloride 1,000 ML 125 ML IVCONT (09:18)
[2023-10-21] MEDS: Atorvastatin Calcium 40 MG TABLET PO (09:19)
--- NOTE | 2023-10-21 10:53 | HO.PM.IMPN ---
Subjective Subjective Date of Service: 10/21/23 Interval History: seen and examined this morning follow up for anemia, colon/liver mass no abdominal pain. She denies any rectal bleeding, hematuria, hematemesis Review of Systems Review of Systems: Yes all other systems are reviewed and are negative Constitutional Constitutional: Denies chills and Denies fever(s) Cardiovascular Cardiovascular: Denies chest pain, Denies palpitations and Denies dyspnea Respiratory Respiratory: Denies cough and Denies dyspnea Gastrointestinal Gastrointestinal: Denies abdominal pain, Denies diarrhea, Denies nausea and Denies vomiting Endocrine Endocrine: Denies palpitations Physical Exam Vital Signs: Vital Signs: Last Vital Signs Temp 97.9 F 10/21/23 08:00 Pulse 121 H 10/21/23 08:00 Resp 20 10/21/23 08:00 BP 107/66 10/21/23 08:00 Pulse Ox 92 10/21/23 08:00 O2 Del Method Room Air 10/21/23 08:00 BMI result Body Mass Index 40.9 Appearing in no acute distress lung sounds are clear to auscultation heart regular rate rhythm, clear S1, S2 positive bowel sounds, abdomen is soft, nontender neuro patient is alert x3, no focal deficits Objective Data Active Medications Acetaminophen (Acetaminophen 325 Mg Tablet) 650 mg PO Q6H PRN PRN Reason: Pain, Mild (Pain Scale 1-3) Last Admin: 10/20/23 10:29 Dose: 650 mg Documented By: LAYA Albuterol Sulfate (Albuterol Sulfate (0.083%) 2.5 Mg/3 Ml Vial.Neb) 3 mg INHALE Q4H PRN PRN Reason: Shortness of Breath/Wheezing Albuterol Sulfate (Albuterol Sulfate 90 Mcg 8 Gm Inhaler) 2 puff INHALE Q4H PRN PRN Reason: shortness of breath or wheezing Amitriptyline HCl (Amitriptyline Hcl 50 Mg Tablet) 50 mg PO BEDTIME [facility] Last Admin: 10/20/23 20:19 Dose: 50 mg Documented By: HITESH Atorvastatin Calcium (Atorvastatin Calcium 40 Mg Tablet) 40 mg PO DAILY [facility] Last Admin: 10/21/23 09:19 Dose: 40 mg Documented By: FLORECITA Bupropion HCl (Bupropion Hcl Xl 150 Mg Tab.Er.24h) 150 mg PO DAILY [facility] Last Admin: 10/21/23 09:17 Dose: 150 mg Documented By: FLORECITA Bupropion HCl (Bupropion Hcl Xl 300 Mg Tab.Er.24h) 300 mg PO DAILY [facility] Last Admin: 10/21/23 09:17 Dose: 300 mg Documented By: FLORECITA Buspirone HCl (Buspirone Hcl 10 Mg Tablet) 10 mg PO BID PRN PRN Reason: Anxiety Cyclobenzaprine HCl (Cyclobenzaprine Hcl 5 Mg Tablet) 5 mg PO BEDTIME [facility] Last Admin: 10/20/23 20:18 Dose: 5 mg Documented By: HITESH Cyclobenzaprine HCl (Cyclobenzaprine Hcl 5 Mg Tablet) 5 mg PO BID@0900,1300 PRN PRN Reason: Muscle Spasm Last Admin: 10/20/23 09:49 Dose: 5 mg Documented By: LAYA Dextrose (Dextrose 50 % 25 Gm/50 Ml Syringe) 25 gm IVPUSH Q15M PRN; Protocol PRN Reason: per Hypoglycemia Standing Ord. Ferrous Sulfate (Ferrous Sulfate 324 Mg Tablet.Dr) 324 mg PO DAILY [facility] Last Admin: 10/21/23 09:17 Dose: 324 mg Documented By: FLORECITA Fluticasone Propionate (Fluticasone Propionate Nasal 16 Gm [place]) 2 spray NOSTRIL-B BEDTIME [facility] Last Admin: 10/20/23 20:21 Dose: Not Given Documented By: HITESH Non-Admin Reason: Med Not Available Gabapentin (Gabapentin 600 Mg Tablet) 600 mg PO BEDTIME [facility] Last Admin: 10/20/23 20:19 Dose: 600 mg Documented By: HITESH Glucose (Glucose Gel 15 Gm Gel..Gram.) 15 gm PO Q15M PRN; Protocol PRN Reason: per Hypoglycemia Standing Ord. Ceftriaxone Sodium 1 gm/ (Sodium Chloride) 50 mls @ 100 mls/hr IV Q24H [facility] Last Infusion: 10/20/23 20:18 Dose: Infused Documented By: HITESH Sodium Chloride (Ns) 1,000 mls @ 125 mls/hr IVCONT .Q8H [facility] Stop: 10/21/23 15:44 Last Admin: 10/21/23 09:18 Dose: 125 mls/hr Documented By: FLORECITA Insulin Human Lispro (Insulin Lispro 100 Unit/Ml 3 Ml Vial) 0 unit SUBCUT QIDACHS [facility]; Protocol Last Admin: 10/21/23 08:41 Dose: Not Given Documented By: FLORECITA Non-Admin Reason: No Insulin Coverage Loratadine (Loratadine 10 Mg Tablet) 10 mg PO DAILY [facility] Last Admin: 10/21/23 09:17 Dose: 10 mg Documented By: FLORECITA Melatonin (Melatonin 3 Mg Tablet) 6 mg PO BEDTIME PRN PRN Reason: Insomnia Montelukast Sodium (Montelukast Sodium 10 Mg Tablet) 10 mg PO DAILY [facility] Last Admin: 10/21/23 09:17 Dose: 10 mg Documented By: FLORECITA Omeprazole (Omeprazole 20 Mg Capsule.Dr) 20 mg PO DAILY@0630 [facility] Last Admin: 10/21/23 05:40 Dose: 20 mg Documented By: ERIN Ondansetron HCl (Ondansetron Hcl 4 Mg/2 Ml Vial) 4 mg IVPUSH Q8H PRN PRN Reason: Nausea and Vomiting Potassium Chloride (Potassium Chloride Er 20 Meq Tab.Er.Prt) 40 meq PO BID [facility] Last Admin: 10/21/23 09:17 Dose: 40 meq Documented By: FLORECITA Sodium Chloride (0.9 % Sodium Chloride Flush 3 Ml Syringe) 3 ml IVFLUSH QSHIFT [facility] Last Admin: 10/21/23 09:17 Dose: 3 ml Documented By: FLORECITA Vitamin D (Cholecalciferol (Vitamin D3) 25 Mcg Tablet) 125 mcg PO DAILY [facility] Last Admin: 10/21/23 09:17 Dose: 125 mcg Documented By: FLORECITA Labs 10/21/23 06:27 10/21/23 06:27 Labs: Laboratory Results - last 24 hr 10/19/23 10/19/23 10/20/23 16:28 18:43 06:24 MCV MCH MCHC RDW Plt Count MPV Immature Gran % (Auto) Neut % (Auto) Lymph % (Auto) [place] % (Auto) Eos % (Auto) Baso % (Auto) Lymph # (Auto) [place] # (Auto) Eos # (Auto) Baso # (Auto) Abs Immat Gran (auto) Absolute Neuts (auto) Absolute Nucleated RBC Nucleated RBC % (auto) Smear Path Review SEE NOTE D-Dimer High Sensitivty Anion Gap Estim Creat Clear Calc Estimated GFR POC Glucose Random Glucose Calcium Ferritin 356 H Vitamin B12 Blood Type A Positive Antibody Screen NEGATIVE Crossmatch See Detail 10/20/23 10/20/23 10/20/23 09:05 10:42 16:32 MCV MCH MCHC RDW Plt Count MPV Immature Gran % (Auto) Neut % (Auto) Lymph % (Auto) [place] % (Auto) Eos % (Auto) Baso % (Auto) Lymph # (Auto) [place] # (Auto) Eos # (Auto) Baso # (Auto) Abs Immat Gran (auto) Absolute Neuts (auto) Absolute Nucleated RBC Nucleated RBC % (auto) Smear Path Review D-Dimer High Sensitivty Anion Gap Estim Creat Clear Calc Estimated GFR POC Glucose 111 105 Random Glucose Calcium Ferritin Vitamin B12 1378 H Blood Type Antibody Screen Crossmatch 10/20/23 10/21/23 10/21/23 20:47 06:27 07:09 MCV 68.1 L MCH 21.3 L MCHC 31.3 RDW 21.2 H Plt Count 672 H MPV 8.6 L Immature Gran % (Auto) 0.7 H Neut % (Auto) 77.2 H Lymph % (Auto) 15.0 L [place] % (Auto) 5.6 Eos % (Auto) 1.2 Baso % (Auto) 0.3 Lymph # (Auto) 2.5 [place] # (Auto) 0.9 Eos # (Auto) 0.2 Baso # (Auto) 0.1 Abs Immat Gran (auto) 0.12 H Absolute Neuts (auto) 12.7 H Absolute Nucleated RBC 0.000 Nucleated RBC % (auto) 0.0 Smear Path Review D-Dimer High Sensitivty Anion Gap 13 Estim Creat Clear Calc 133.5 Estimated GFR > 60 POC Glucose 182 H 80 Random Glucose 79 Calcium 8.4 Ferritin Vitamin B12 Blood Type Antibody Screen Crossmatch 10/21/23 07:46 MCV MCH MCHC RDW Plt Count MPV Immature Gran % (Auto) Neut % (Auto) Lymph % (Auto) [place] % (Auto) Eos % (Auto) Baso % (Auto) Lymph # (Auto) [place] # (Auto) Eos # (Auto) Baso # (Auto) Abs Immat Gran (auto) Absolute Neuts (auto) Absolute Nucleated RBC Nucleated RBC % (auto) Smear Path Review D-Dimer High Sensitivty 2355 Anion Gap Estim Creat Clear Calc Estimated GFR POC Glucose Random Glucose Calcium Ferritin Vitamin B12 Blood Type Antibody Screen Crossmatch Microbiology Microbiology Results: Microbiology 10/19/23 16:28 Urine Culture - Final Urine clean catch - Urine tinajero top Escherichia coli 10/19/23 17:27 Blood Culture - Preliminary Blood - Venous No growth after 24 hours. 10/19/23 17:09 Blood Culture - Preliminary Blood - Venous No growth after 24 hours. Assessment and Plan (1) Colonic mass: Status: Acute (2) Anemia: Status: Acute Plan This is a 48-year-old female with a PMH significant for?mild intermittent asthma, HLD, [id number] diabetes type 2, iron-deficiency anemia, and fibromyalgia who presents to the ED with?generalized weakness, anorexia, and lightheadedness and dizziness found to have concern for UTI with sepsis and microcytic anemia likely secondary to sigmoid colon and liver lesions concerning for malignancy. Tachycardia, sinus likely due to anemia as fever has resolved DDimer 2354 chest CTA neg for PE Sepsis due to ecoli UTI improving, white count trending down, afebrile, tachypnea resolved, remains tachycardic received 33/kg bolus + 2 additional L in ED. BP stable. continue IV ceftriaxone, started 10/19/2023 Blood cultures negative Acute on chronic Microcytic anemia s/p 2 units PRBC due to probable underlying malignancy CT of abdomen and pelvis showing infiltrating mass/nodules throughout left hepatic and lobes, as well as suspicious lesion on sigmoid colon CEA 4 GI consult - plan for colonoscopy on Monday Dbbn-Pns-apnn workup done, follow up o/p follow CBC Mild intermittent asthma Not in acute exacerbation Continue home inhalers HLD Continue statin Fibromyalgia/mood Continue amitriptyline, wellbutrin, buspar, gabapentin [id number] diabetes type 2 Hold metformin ADA diet, SSI, follow POCs GERD PPI migraine rizatriptan is NF Full Code Attending:?Dr. Jin DVT Prophylaxis: Pneumatic boots due to anemia close to transfusion threshold Requires ongoing inpatient stay for treatment of?UTI with sepsis and microcytic anemia likely secondary to sigmoid and liver lesions concerning for malignancy. Patient will require hospitalization for treatment with IV antibiotics, close monitoring of blood levels, transfusion as necessary, and specialist consultation with GI and heme Onc. Quality Stroke Does the patient have a stroke diagnosis?: No VTE Prior VTE?: No VTE Risk Level:: Medical - moderate - high VTE Device Contraindication: N/A - Device Ordered VTE Drug Contraindication: Treatment Not Indicated
[2023-10-21 12:13] LABS: Glucose, Whole Blood 96 mg/dL (60-115)
[2023-10-21] MEDS: iohexoL 350 MG/ML 100 ML INFUS..BTL IV (13:06)
[2023-10-21 16:13] LABS: Glucose, Whole Blood 176 mg/dL (60-115)
[2023-10-21] MEDS: Insulin Lispro 100 UNIT/ML 3 ML VIAL SUBCUT (16:44)
[2023-10-21] MEDS: cefTRIAXone sodium 1 GM in 0.9 % Sodium Chloride 50 ML IV (18:24)
[2023-10-21 20:31] LABS: Glucose, Whole Blood 121 mg/dL (60-115)
[2023-10-21] MEDS: Amitriptyline HCl 50 MG TABLET PO (21:00)
[2023-10-21] MEDS: Cyclobenzaprine HCl 5 MG TABLET PO (21:00)
[2023-10-21] MEDS: Gabapentin 600 MG TABLET PO (21:00)
[2023-10-22 03:21] VITALS: BP 90/55; PULSE 120; RESP 20; TEMP 36.4; O2SAT 93
[2023-10-22] MEDS: Omeprazole 20 MG CAPSULE.DR PO (05:32)
[2023-10-22 07:21] LABS: Hematocrit 25.8 % (37.0-47.0); Mean Corpuscular Hemoglobin 21.2 pg (27.0-33.0); Mean Corpuscular Volume 68.3 fL (80.0-98.0); Mean Platelet Volume 8.4 fL (9.4-12.3); Platelet Count 652 X10*3/uL (160-400); Red Blood Count 3.78 X10*6/uL (4.20-5.50); Red Cell Distribution Width 22.3 % (11.0-16.0); White Blood Count 14.4 X10*3/uL (4.8-10.8)
[2023-10-22 07:54] VITALS: BP 121/62; PULSE 111; RESP 18; TEMP 36.6; O2SAT 96
[2023-10-22 08:03] LABS: Glucose, Whole Blood 74 mg/dL (60-115)
--- NOTE | 2023-10-22 09:29 | HO.PM.IMPN ---
Subjective Subjective Date of Service: 10/22/23 Interval History: seen and examined this morning follow up for anemia, colon/liver mass no abdominal pain. She denies any rectal bleeding, hematuria, hematemesis Review of Systems Review of Systems: Yes all other systems are reviewed and are negative Constitutional Constitutional: Denies chills and Denies fever(s) Cardiovascular Cardiovascular: Denies chest pain, Denies palpitations and Denies dyspnea Respiratory Respiratory: Denies cough and Denies dyspnea Gastrointestinal Gastrointestinal: Denies abdominal pain, Denies diarrhea, Denies nausea and Denies vomiting Endocrine Endocrine: Denies palpitations Physical Exam Vital Signs: Vital Signs: Last Vital Signs Temp 97.9 F 10/22/23 07:54 Pulse 111 H 10/22/23 07:54 Resp 18 10/22/23 07:54 BP 121/62 10/22/23 07:54 Pulse Ox 96 10/22/23 07:54 O2 Del Method Room Air 10/22/23 07:54 BMI result Body Mass Index 40.9 Appearing in no acute distress lung sounds are clear to auscultation heart regular rate rhythm, clear S1, S2 positive bowel sounds, abdomen is soft, nontender neuro patient is alert x3, no focal deficits Objective Data Active Medications Acetaminophen (Acetaminophen 325 Mg Tablet) 650 mg PO Q6H PRN PRN Reason: Pain, Mild (Pain Scale 1-3) Last Admin: 10/20/23 10:29 Dose: 650 mg Documented By: LAYA Albuterol Sulfate (Albuterol Sulfate (0.083%) 2.5 Mg/3 Ml Vial.Neb) 3 mg INHALE Q4H PRN PRN Reason: Shortness of Breath/Wheezing Albuterol Sulfate (Albuterol Sulfate 90 Mcg 8 Gm Inhaler) 2 puff INHALE Q4H PRN PRN Reason: shortness of breath or wheezing Amitriptyline HCl (Amitriptyline Hcl 50 Mg Tablet) 50 mg PO BEDTIME [facility] Last Admin: 10/21/23 21:00 Dose: 50 mg Documented By: CARRI Atorvastatin Calcium (Atorvastatin Calcium 40 Mg Tablet) 40 mg PO DAILY [facility] Last Admin: 10/21/23 09:19 Dose: 40 mg Documented By: FLORECITA Bupropion HCl (Bupropion Hcl Xl 150 Mg Tab.Er.24h) 150 mg PO DAILY [facility] Last Admin: 10/21/23 09:17 Dose: 150 mg Documented By: FLORECITA Bupropion HCl (Bupropion Hcl Xl 300 Mg Tab.Er.24h) 300 mg PO DAILY [facility] Last Admin: 10/21/23 09:17 Dose: 300 mg Documented By: FLORECITA Buspirone HCl (Buspirone Hcl 10 Mg Tablet) 10 mg PO BID PRN PRN Reason: Anxiety Cyclobenzaprine HCl (Cyclobenzaprine Hcl 5 Mg Tablet) 5 mg PO BEDTIME [facility] Last Admin: 10/21/23 21:00 Dose: 5 mg Documented By: CARRI Cyclobenzaprine HCl (Cyclobenzaprine Hcl 5 Mg Tablet) 5 mg PO BID@0900,1300 PRN PRN Reason: Muscle Spasm Last Admin: 10/20/23 09:49 Dose: 5 mg Documented By: LAYA Dextrose (Dextrose 50 % 25 Gm/50 Ml Syringe) 25 gm IVPUSH Q15M PRN; Protocol PRN Reason: per Hypoglycemia Standing Ord. Ferrous Sulfate (Ferrous Sulfate 324 Mg Tablet.Dr) 324 mg PO DAILY [facility] Last Admin: 10/21/23 09:17 Dose: 324 mg Documented By: FLORECITA Fluticasone Propionate (Fluticasone Propionate Nasal 16 Gm [place]) 2 spray NOSTRIL-B BEDTIME [facility] Last Admin: 10/21/23 21:05 Dose: Not Given Documented By: CARRI Non-Admin Reason: Med Not Available Gabapentin (Gabapentin 600 Mg Tablet) 600 mg PO BEDTIME [facility] Last Admin: 10/21/23 21:00 Dose: 600 mg Documented By: CARRI Glucose (Glucose Gel 15 Gm Gel..Gram.) 15 gm PO Q15M PRN; Protocol PRN Reason: per Hypoglycemia Standing Ord. Ceftriaxone Sodium 1 gm/ (Sodium Chloride) 50 mls @ 100 mls/hr IV Q24H [facility] Last Infusion: 10/21/23 19:00 Dose: Infused Documented By: CARRI Insulin Human Lispro (Insulin Lispro 100 Unit/Ml 3 Ml Vial) 0 unit SUBCUT QIDACHS [facility]; Protocol Last Admin: 10/22/23 08:24 Dose: Not Given Documented By: DOBROB Non-Admin Reason: No Insulin Coverage Loratadine (Loratadine 10 Mg Tablet) 10 mg PO DAILY [facility] Last Admin: 10/21/23 09:17 Dose: 10 mg Documented By: FLORECITA Melatonin (Melatonin 3 Mg Tablet) 6 mg PO BEDTIME PRN PRN Reason: Insomnia Montelukast Sodium (Montelukast Sodium 10 Mg Tablet) 10 mg PO DAILY [facility] Last Admin: 10/21/23 09:17 Dose: 10 mg Documented By: FLORECITA Omeprazole (Omeprazole 20 Mg Capsule.Dr) 20 mg PO DAILY@0630 [facility] Last Admin: 10/22/23 05:32 Dose: 20 mg Documented By: CARRI Ondansetron HCl (Ondansetron Hcl 4 Mg/2 Ml Vial) 4 mg IVPUSH Q8H PRN PRN Reason: Nausea and Vomiting Polyethylene Glycol/Electrolytes (Peg 3350/Na Sulf,Bicarb,Cl/Kcl 4,000 Ml Soln.Recon) 240 ml PO Q10M [facility] Stop: 10/22/23 16:41 Potassium Chloride (Potassium Chloride Er 20 Meq Tab.Er.Prt) 40 meq PO BID [facility] Last Admin: 10/21/23 21:00 Dose: 40 meq Documented By: CARRI Sodium Chloride (0.9 % Sodium Chloride Flush 3 Ml Syringe) 3 ml IVFLUSH QSHIFT [facility] Last Admin: 10/21/23 21:00 Dose: 3 ml Documented By: CARRI Vitamin D (Cholecalciferol (Vitamin D3) 25 Mcg Tablet) 125 mcg PO DAILY [facility] Last Admin: 10/21/23 09:17 Dose: 125 mcg Documented By: FLORECITA Labs 10/22/23 07:14 10/21/23 06:27 Labs: Laboratory Results - last 24 hr 10/21/23 10/21/23 10/21/23 12:09 16:04 20:21 MCV MCH MCHC RDW Plt Count MPV Absolute Nucleated RBC Nucleated RBC % (auto) POC Glucose 96 176 H 121 H 10/22/23 10/22/23 07:14 07:57 MCV 68.3 L MCH 21.2 L MCHC 31.0 RDW 22.3 H Plt Count 652 H MPV 8.4 L Absolute Nucleated RBC 0.000 Nucleated RBC % (auto) 0.0 POC Glucose 74 Microbiology Microbiology Results: Microbiology 10/19/23 17:27 Blood Culture - Preliminary Blood - Venous No growth after 48 hours. 10/19/23 17:09 Blood Culture - Preliminary Blood - Venous No growth after 48 hours. 10/19/23 16:28 Urine Culture - Final Urine clean catch - Urine tinajero top Escherichia coli Assessment and Plan (1) Colonic mass: Status: Acute (2) Anemia: Status: Acute Plan This is a 48-year-old female with a PMH significant for?mild intermittent asthma, HLD, [id number]-vrzskvgwr diabetes type 2, iron-deficiency anemia, and fibromyalgia who presents to the ED with?generalized weakness, anorexia, and lightheadedness and dizziness found to have concern for UTI with sepsis and microcytic anemia likely secondary to sigmoid colon and liver lesions concerning for malignancy. Acute on chronic Microcytic anemia s/p 2 units PRBC due to probable underlying malignancy CT of abdomen and pelvis showing infiltrating mass/nodules throughout left hepatic and lobes, as well as suspicious lesion on sigmoid colon CEA 3134 Cyor-Rja-rqat workup done, follow up o/p follow CBC GI consult - plan for colonoscopy on Monday, prep today, clear diet Tachycardia, sinus likely due to anemia as fever has resolved DDimer 2354 chest CTA neg for PE Sepsis due to ecoli UTI sepsis resolved s/p received 33/kg bolus + 2 additional L in ED. BP stable. continue IV ceftriaxone, started 10/19/2023 Blood cultures negative Mild intermittent asthma Not in acute exacerbation Continue home inhalers HLD Continue statin Fibromyalgia/mood Continue amitriptyline, wellbutrin, buspar, gabapentin [id number] diabetes type 2 Hold metformin ADA diet, SSI, follow POCs GERD PPI migraine rizatriptan is NF Full Code Attending:?Dr. Jin DVT Prophylaxis: Pneumatic boots due to anemia close to transfusion threshold Requires ongoing inpatient stay for treatment of?UTI with sepsis and microcytic anemia likely secondary to sigmoid and liver lesions concerning for malignancy. Patient will require hospitalization for treatment with IV antibiotics, close monitoring of blood levels, transfusion as necessary, and specialist consultation with GI and heme Onc. Quality Stroke Does the patient have a stroke diagnosis?: No VTE Prior VTE?: No VTE Risk Level:: Medical - moderate - high VTE Device Contraindication: N/A - Device Ordered VTE Drug Contraindication: Treatment Not Indicated
[2023-10-22] MEDS: buPROPion HCl XL 300 MG TAB.ER.24H PO (09:41)
[2023-10-22] MEDS: Atorvastatin Calcium 40 MG TABLET PO (09:41)
[2023-10-22] MEDS: Montelukast Sodium 10 MG TABLET PO (09:41)
[2023-10-22] MEDS: Cholecalciferol (Vitamin D3) 25 MCG TABLET 125 MCG PO (09:42)
[2023-10-22] MEDS: Potassium Chloride ER 20 MEQ TAB.ER.PRT 40 MEQ PO ×2 (09:42→20:45)
[2023-10-22] MEDS: buPROPion HCl XL 150 MG TAB.ER.24H PO (09:42)
[2023-10-22] MEDS: Loratadine 10 MG TABLET PO (09:42)
[2023-10-22] MEDS: Ferrous Sulfate 324 MG TABLET.DR PO (09:42)
[2023-10-22] MEDS: 0.9 % Sodium Chloride Flush 3 ML SYRINGE IVFLUSH ×2 (09:49→17:32)
[2023-10-22 11:16] LABS: Glucose, Whole Blood 96 mg/dL (60-115)
[2023-10-22 11:56] VITALS: BP 125/75; PULSE 115; RESP 20; TEMP 36.4; O2SAT 96
[2023-10-22 12:24] LABS: Anion Gap 15 (12-20); Blood Urea Nitrogen 5 mg/dL (9-16); Calcium 8.1 mg/dL (8.4-10.2); Carbon Dioxide 24 mmol/L (22-29); Chloride 103 mmol/L (96-108); Creatinine Clr Calc Pharmacy 145.4; Estimated Glomerular Filt Rate > 60; Glucose Random 73 mg/dL (60-115); Potassium 4.2 mmol/L (3.3-5.1); Sodium 138 mmol/L (135-145)
[2023-10-22] MEDS: PEG 3350/Na Sulf,Bicarb,Cl/KCL 4,000 ML SOLN.RECON 4000 ML PO (14:53)
[2023-10-22 15:29] VITALS: BP 108/69; PULSE 111; RESP 20; TEMP 36.7; O2SAT 96
[2023-10-22 16:04] LABS: Glucose, Whole Blood 108 mg/dL (60-115)
[2023-10-22 19:01] VITALS: BP 105/69; PULSE 112; RESP 20; TEMP 36.9; O2SAT 96
[2023-10-22 19:45] LABS: Glucose, Whole Blood 72 mg/dL (60-115)
[2023-10-22] MEDS: cefTRIAXone sodium 1 GM in 0.9 % Sodium Chloride 50 ML IV (19:55)
[2023-10-22] MEDS: Gabapentin 600 MG TABLET PO (20:45)
[2023-10-22] MEDS: Amitriptyline HCl 50 MG TABLET PO (20:46)
[2023-10-22] MEDS: Cyclobenzaprine HCl 5 MG TABLET PO (20:46)
[2023-10-22 23:44] VITALS: BP 122/73; PULSE 128; RESP 19; TEMP 37.1; O2SAT 96
[2023-10-23] VITALS (9 sets, daily range): BP systolic 99–131; BP diastolic 55–81; PULSE 100–112; RESP 18–20; TEMP 36–37.1; O2SAT 91–99
[2023-10-23] MEDS: 0.9 % Sodium Chloride Flush 3 ML SYRINGE IVFLUSH ×4 (00:21→21:49)
--- NOTE | 2023-10-23 05:10 | PC.NURSE ---
0000 [facility] [place] procedures rnBarbara utilized when assessing the patient. Pt reports she develops nausea when drinking Gavilyte colon prep, total intake approx 1000mL of 4 liter bottle. Pt does not want to continue to drink even if provided with antiemetic. Dr. Terrazas notified and ok to stop Gavilyte a no alternative to give to the patient. Pt in aggreeance with not drinking the prep. Pt is passing watery diarrhea, brown in color.
[2023-10-23 07:49] LABS: Glucose, Whole Blood 67 mg/dL (60-115)
[2023-10-23 08:22] LABS: Glucose, Whole Blood 94 mg/dL (60-115)
[2023-10-23] MEDS: Atorvastatin Calcium 40 MG TABLET PO (08:40)
[2023-10-23] MEDS: buPROPion HCl XL 300 MG TAB.ER.24H PO (08:40)
[2023-10-23] MEDS: Cholecalciferol (Vitamin D3) 25 MCG TABLET 125 MCG PO (08:40)
[2023-10-23] MEDS: buPROPion HCl XL 150 MG TAB.ER.24H PO (08:40)
[2023-10-23] MEDS: Loratadine 10 MG TABLET PO (08:41)
[2023-10-23] MEDS: Potassium Chloride ER 20 MEQ TAB.ER.PRT 40 MEQ PO ×2 (08:41→21:48)
[2023-10-23] MEDS: Ferrous Sulfate 324 MG TABLET.DR PO (08:41)
[2023-10-23] MEDS: Montelukast Sodium 10 MG TABLET PO (08:41)
[2023-10-23] MEDS: bisacodyL 5 MG TABLET.DR 10 MG PO (09:35)
--- NOTE | 2023-10-23 09:49 | HO.PM.IMPN ---
Subjective Subjective Date of Service: 10/23/23 Interval History: seen and examined this morning follow up for anemia, colon/liver mass no abdominal pain. She denies any rectal bleeding, hematuria, hematemesis Review of Systems Review of Systems: Yes all other systems are reviewed and are negative Constitutional Constitutional: Denies chills and Denies fever(s) Cardiovascular Cardiovascular: Denies chest pain, Denies palpitations and Denies dyspnea Respiratory Respiratory: Denies cough and Denies dyspnea Gastrointestinal Gastrointestinal: Denies abdominal pain, Denies diarrhea, Denies nausea and Denies vomiting Endocrine Endocrine: Denies palpitations Physical Exam Vital Signs: Vital Signs: Last Vital Signs Temp 98.8 F 10/23/23 08:00 Pulse 111 H 10/23/23 08:00 Resp 18 10/23/23 08:00 BP 126/80 10/23/23 08:00 Pulse Ox 95 10/23/23 08:00 O2 Del Method Room Air 10/23/23 08:00 BMI result Body Mass Index 40.9 Appearing in no acute distress lung sounds are clear to auscultation heart regular rate rhythm, clear S1, S2 positive bowel sounds, abdomen is soft, nontender neuro patient is alert x3, no focal deficits Objective Data Active Medications Acetaminophen (Acetaminophen 325 Mg Tablet) 650 mg PO Q6H PRN PRN Reason: Pain, Mild (Pain Scale 1-3) Last Admin: 10/20/23 10:29 Dose: 650 mg Documented By: LAYA Albuterol Sulfate (Albuterol Sulfate (0.083%) 2.5 Mg/3 Ml Vial.Neb) 3 mg INHALE Q4H PRN PRN Reason: Shortness of Breath/Wheezing Albuterol Sulfate (Albuterol Sulfate 90 Mcg 8 Gm Inhaler) 2 puff INHALE Q4H PRN PRN Reason: shortness of breath or wheezing Amitriptyline HCl (Amitriptyline Hcl 50 Mg Tablet) 50 mg PO BEDTIME [facility] Last Admin: 10/22/23 20:46 Dose: 50 mg Documented By: ONIEL Atorvastatin Calcium (Atorvastatin Calcium 40 Mg Tablet) 40 mg PO DAILY [facility] Last Admin: 10/23/23 08:40 Dose: 40 mg Documented By: BECCA Bupropion HCl (Bupropion Hcl Xl 150 Mg Tab.Er.24h) 150 mg PO DAILY [facility] Last Admin: 10/23/23 08:40 Dose: 150 mg Documented By: BECCA Bupropion HCl (Bupropion Hcl Xl 300 Mg Tab.Er.24h) 300 mg PO DAILY [facility] Last Admin: 10/23/23 08:40 Dose: 300 mg Documented By: BECCA Buspirone HCl (Buspirone Hcl 10 Mg Tablet) 10 mg PO BID PRN PRN Reason: Anxiety Cyclobenzaprine HCl (Cyclobenzaprine Hcl 5 Mg Tablet) 5 mg PO BEDTIME [facility] Last Admin: 10/22/23 20:46 Dose: 5 mg Documented By: ONIEL Cyclobenzaprine HCl (Cyclobenzaprine Hcl 5 Mg Tablet) 5 mg PO BID@0900,1300 PRN PRN Reason: Muscle Spasm Last Admin: 10/20/23 09:49 Dose: 5 mg Documented By: LAYA Dextrose (Dextrose 50 % 25 Gm/50 Ml Syringe) 25 gm IVPUSH Q15M PRN; Protocol PRN Reason: per Hypoglycemia Standing Ord. Ferrous Sulfate (Ferrous Sulfate 324 Mg Tablet.Dr) 324 mg PO DAILY [facility] Last Admin: 10/23/23 08:41 Dose: 324 mg Documented By: BECCA Fluticasone Propionate (Fluticasone Propionate Nasal 16 Gm [place]) 2 spray NOSTRIL-B BEDTIME [facility] Last Admin: 10/22/23 20:48 Dose: Not Given Documented By: ONIEL Non-Admin Reason: Med Not Available Gabapentin (Gabapentin 600 Mg Tablet) 600 mg PO BEDTIME [facility] Last Admin: 10/22/23 20:45 Dose: 600 mg Documented By: ONIEL Glucose (Glucose Gel 15 Gm Gel..Gram.) 15 gm PO Q15M PRN; Protocol PRN Reason: per Hypoglycemia Standing Ord. Ceftriaxone Sodium 1 gm/ (Sodium Chloride) 50 mls @ 100 mls/hr IV Q24H [facility] Last Infusion: 10/22/23 20:26 Dose: Infused Documented By: ONIEL Insulin Human Lispro (Insulin Lispro 100 Unit/Ml 3 Ml Vial) 0 unit SUBCUT QIDACHS [facility]; Protocol Last Admin: 10/23/23 07:55 Dose: Not Given Documented By: BECCA Non-Admin Reason: No Insulin Coverage Loratadine (Loratadine 10 Mg Tablet) 10 mg PO DAILY [facility] Last Admin: 10/23/23 08:41 Dose: 10 mg Documented By: BECCA Melatonin (Melatonin 3 Mg Tablet) 6 mg PO BEDTIME PRN PRN Reason: Insomnia Montelukast Sodium (Montelukast Sodium 10 Mg Tablet) 10 mg PO DAILY [facility] Last Admin: 10/23/23 08:41 Dose: 10 mg Documented By: BECCA Omeprazole (Omeprazole 20 Mg Capsule.Dr) 20 mg PO DAILY@0630 [facility] Last Admin: 10/23/23 05:38 Dose: Not Given Documented By: GERMAN Non-Admin Reason: NPO Ondansetron HCl (Ondansetron Hcl 4 Mg/2 Ml Vial) 4 mg IVPUSH Q8H PRN PRN Reason: Nausea and Vomiting Potassium Chloride (Potassium Chloride Er 20 Meq Tab.Er.Prt) 40 meq PO BID [facility] Last Admin: 10/23/23 08:41 Dose: 40 meq Documented By: BECCA Sodium Biphosphate/Sodium Phosphate (Sodium Phosphate,[place]-Dibasic 133 Ml Enema) 133 ml TN ONCE PRN PRN Reason: Poor Colonoscopy Prep Results Sodium Chloride (0.9 % Sodium Chloride Flush 3 Ml Syringe) 3 ml IVFLUSH QSHIFT [facility] Last Admin: 10/23/23 08:39 Dose: 3 ml Documented By: BECCA Vitamin D (Cholecalciferol (Vitamin D3) 25 Mcg Tablet) 125 mcg PO DAILY [facility] Last Admin: 10/23/23 08:40 Dose: 125 mcg Documented By: BECCA Labs 10/22/23 07:14 10/22/23 07:14 Labs: Laboratory Results - last 24 hr 10/22/23 10/22/23 10/22/23 07:14 11:13 16:00 Anion Gap 15 Estim Creat Clear Calc 145.4 Estimated GFR > 60 POC Glucose 96 108 Random Glucose 73 Calcium 8.1 L 10/22/23 10/23/23 10/23/23 19:41 07:33 08:19 Anion Gap Estim Creat Clear Calc Estimated GFR POC Glucose 72 67 94 Random Glucose Calcium Assessment and Plan (1) Colonic mass: Status: Acute (2) Anemia: Status: Acute Plan This is a 48-year-old female with a PMH significant for?mild intermittent asthma, HLD, [id number] diabetes type 2, iron-deficiency anemia, and fibromyalgia who presents to the ED with?generalized weakness, anorexia, and lightheadedness and dizziness found to have concern for UTI with sepsis and microcytic anemia likely secondary to sigmoid colon and liver lesions concerning for malignancy. Acute on chronic Microcytic anemia s/p 2 units PRBC due to probable underlying malignancy CT of abdomen and pelvis showing infiltrating mass/nodules throughout left hepatic and lobes, as well as suspicious lesion on sigmoid colon CEA [id number] [id number] workup done, follow up o/p follow CBC GI consult - plan for colonoscopy today Tachycardia, sinus chronic DDimer 2359 chest CTA neg for PE Sepsis due to ecoli UTI sepsis resolved s/p received 33/kg bolus + 2 additional L in ED. BP stable. continue IV ceftriaxone, started 10/19/2023 Blood cultures negative Mild intermittent asthma Not in acute exacerbation Continue home inhalers HLD Continue statin Fibromyalgia/mood Continue amitriptyline, wellbutrin, buspar, gabapentin Qng-kxscdzz-lizydtego diabetes type 2 Hold metformin ADA diet, SSI GERD PPI migraine rizatriptan is NF Full Code Attending:?Dr. Feliciano DVT Prophylaxis: Pneumatic boots due to anemia close to transfusion threshold Requires ongoing inpatient stay for treatment of?UTI with sepsis and microcytic anemia likely secondary to sigmoid and liver lesions concerning for malignancy. Patient will require hospitalization for treatment with IV antibiotics, close monitoring of blood levels, transfusion as necessary, and specialist consultation with GI and heme Onc. Quality Stroke Does the patient have a stroke diagnosis?: No VTE Prior VTE?: No VTE Risk Level:: Medical - moderate - high VTE Device Contraindication: N/A - Device Ordered VTE Drug Contraindication: Treatment Not Indicated
[2023-10-23] MEDS: Sodium Phosphate,Mono-Dibasic 133 ML ENEMA PR (10:50)
[2023-10-23 11:19] LABS: Glucose, Whole Blood 77 mg/dL (60-115)
--- NOTE | 2023-10-23 12:37 | HO.ANESPROP2 ---
[facility] Active Problems Active Problems: All Active Problems Abnormal CT scan, liver (Acute) Colonic mass (Acute) Anemia (Acute) Urinary tract infection (Acute) Sepsis (Acute) Arthritis (Acute) MONICA (obstructive sleep apnea) (Acute) Diabetes (Acute) Morbid obesity (Acute) Past Medical History Medical History Non-insulin dependent type 2 diabetes mellitus Migraines Fibromyalgia Mild intermittent asthma HLD (hyperlipidemia) Functional capacity: wheelchair bound Family History Family History Mother Diabetes Father Leukemia Daughter Asthma Son No problems noted. Son No problems noted. Daughter No problems noted. Surgical History Surgical History History of Ritchie colposuspension H/O knee surgery History of Problems with Anesthesia: No Social History Social History Household Members: Children Household Members Other:: 4 Housing: Apartment Do you presently have visiting nurse or other home services: Yes Alcohol intake: current Alcohol intake frequency: does not drink Patient Tobacco Use Status: Never used Tobacco service: No Current occupational status: unemployed Meds Allergies Allergy/AdvReac Type Severity Reaction Status Date / Time No Known Allergies Allergy Verified 10/19/23 15:57 Active Medications: Current Medications Acetaminophen (Acetaminophen 325 Mg Tablet) 650 mg PO Q6H PRN PRN Reason: Pain, Mild (Pain Scale 1-3) Last Admin: 10/20/23 10:29 Dose: 650 mg Albuterol Sulfate (Albuterol Sulfate (0.083%) 2.5 Mg/3 Ml Vial.Neb) 3 mg INHALE Q4H PRN PRN Reason: Shortness of Breath/Wheezing Albuterol Sulfate (Albuterol Sulfate 90 Mcg 8 Gm Inhaler) 2 puff INHALE Q4H PRN PRN Reason: shortness of breath or wheezing Amitriptyline HCl (Amitriptyline Hcl 50 Mg Tablet) 50 mg PO BEDTIME [facility]IE Last Admin: 10/22/23 20:46 Dose: 50 mg Atorvastatin Calcium (Atorvastatin Calcium 40 Mg Tablet) 40 mg PO DAILY [facility]IE Last Admin: 10/23/23 08:40 Dose: 40 mg Bupropion HCl (Bupropion Hcl Xl 150 Mg Tab.Er.24h) 150 mg PO DAILY [facility] Last Admin: 10/23/23 08:40 Dose: 150 mg Bupropion HCl (Bupropion Hcl Xl 300 Mg Tab.Er.24h) 300 mg PO DAILY [facility] Last Admin: 10/23/23 08:40 Dose: 300 mg Buspirone HCl (Buspirone Hcl 10 Mg Tablet) 10 mg PO BID PRN PRN Reason: Anxiety Cyclobenzaprine HCl (Cyclobenzaprine Hcl 5 Mg Tablet) 5 mg PO BEDTIME [facility] Last Admin: 10/22/23 20:46 Dose: 5 mg Cyclobenzaprine HCl (Cyclobenzaprine Hcl 5 Mg Tablet) 5 mg PO BID@0900,1300 PRN PRN Reason: Muscle Spasm Last Admin: 10/20/23 09:49 Dose: 5 mg Dextrose (Dextrose 50 % 25 Gm/50 Ml Syringe) 25 gm IVPUSH Q15M PRN; Protocol PRN Reason: per Hypoglycemia Standing Ord. Ferrous Sulfate (Ferrous Sulfate 324 Mg Tablet.Dr) 324 mg PO DAILY [facility] Last Admin: 10/23/23 08:41 Dose: 324 mg Fluticasone Propionate (Fluticasone Propionate Nasal 16 Gm [place]) 2 spray NOSTRIL-B BEDTIME [facility] Last Admin: 10/22/23 20:48 Dose: Not Given Gabapentin (Gabapentin 600 Mg Tablet) 600 mg PO BEDTIME [facility] Last Admin: 10/22/23 20:45 Dose: 600 mg Glucose (Glucose Gel 15 Gm Gel..Gram.) 15 gm PO Q15M PRN; Protocol PRN Reason: per Hypoglycemia Standing Ord. Ceftriaxone Sodium 1 gm/ (Sodium Chloride) 50 mls @ 100 mls/hr IV Q24H [facility] Last Infusion: 10/22/23 20:26 Dose: Infused Insulin Human Lispro (Insulin Lispro 100 Unit/Ml 3 Ml Vial) 0 unit SUBCUT QIDACHS [facility]; Protocol Last Admin: 10/23/23 11:31 Dose: Not Given Loratadine (Loratadine 10 Mg Tablet) 10 mg PO DAILY [facility] Last Admin: 10/23/23 08:41 Dose: 10 mg Melatonin (Melatonin 3 Mg Tablet) 6 mg PO BEDTIME PRN PRN Reason: Insomnia Montelukast Sodium (Montelukast Sodium 10 Mg Tablet) 10 mg PO DAILY [facility] Last Admin: 10/23/23 08:41 Dose: 10 mg Omeprazole (Omeprazole 20 Mg Capsule.Dr) 20 mg PO DAILY@0630 [facility] Last Admin: 10/23/23 05:38 Dose: Not Given Ondansetron HCl (Ondansetron Hcl 4 Mg/2 Ml Vial) 4 mg IVPUSH Q8H PRN PRN Reason: Nausea and Vomiting Potassium Chloride (Potassium Chloride Er 20 Meq Tab.Er.Prt) 40 meq PO BID [facility] Last Admin: 10/23/23 08:41 Dose: 40 meq Sodium Biphosphate/Sodium Phosphate (Sodium Phosphate,Edgar-Dibasic 133 Ml Enema) 133 ml [place] ONCE PRN PRN Reason: Poor Colonoscopy Prep Results Last Admin: 10/23/23 10:50 Dose: 133 ml Sodium Chloride (0.9 % Sodium Chloride Flush 3 Ml Syringe) 3 ml IVFLUSH QSHIFT [facility] Last Admin: 10/23/23 08:39 Dose: 3 ml Vitamin D (Cholecalciferol (Vitamin D3) 25 Mcg Tablet) 125 mcg PO DAILY [facility] Last Admin: 10/23/23 08:40 Dose: 125 mcg Home Medications Medication Instructions Recorded Confirmed Last Taken Type bupropion HCl 150 mg 24 hr tablet, 150 mg PO QAM 04/13/23 10/19/23 10/18/23 History extended release cetirizine 10 mg tablet 10 mg PO DAILY allergies 04/13/23 10/19/23 10/18/23 History cyclobenzaprine 5 mg tablet 5 mg PO BID@0900,1300 PRN Muscle 04/13/23 10/19/23 10/18/23 History Spasm fluticasone propionate 50 2 spray intranasal BEDTIME 04/13/23 10/19/23 10/18/23 History mcg/actuation nasal spray,suspension montelukast 10 mg tablet 10 mg PO DAILY 04/13/23 10/19/23 10/18/23 History pantoprazole 40 mg tablet,delayed 40 mg PO DAILY 04/13/23 10/19/23 10/18/23 History release triamcinolone acetonide 0.025 % 1 appl topical BID PRN itch 04/13/23 10/19/23 Unknown History lotion albuterol sulfate 2.5 mg/3 mL 3 mg inhalation Q4H PRN breathing 10/19/23 10/19/23 Unknown History (0.083 %) solution for nebulization amitriptyline 50 mg tablet 50 mg PO BEDTIME 10/19/23 10/19/23 10/18/23 History atorvastatin 40 mg tablet 40 mg PO DAILY 10/19/23 10/19/23 10/18/23 History bupropion HCl 300 mg 24 hr tablet, 300 mg PO QAM 10/19/23 10/19/23 10/18/23 History extended release buspirone 10 mg tablet 10 mg PO BID PRN Anxiety 10/19/23 10/19/23 10/18/23 History cyclobenzaprine 5 mg tablet 5 mg PO BEDTIME muscle pain 10/19/23 10/19/23 10/18/23 History ferrous sulfate 325 mg (65 mg 325 mg PO DAILY 10/19/23 10/19/23 10/18/23 History iron) tablet,delayed release gabapentin 600 mg tablet 600 mg PO BEDTIME neuropathic pain 10/19/23 10/19/23 10/18/23 History metformin 500 mg tablet,extended 1,000 mg PO BID diabetes mellitus 10/19/23 10/19/23 10/18/23 History release 24 hr rizatriptan 10 mg tablet 10 mg PO DAILY MRX1 PRN migraine 10/19/23 10/19/23 10/18/23 History Exam Height,Weight and Vital Signs: Height 5 ft 3 in Weight 104.8 kg Last Vital Signs Temp 97 F 10/23/23 12:24 Pulse 112 H 10/23/23 12:24 Resp 19 10/23/23 12:24 BP 120/79 10/23/23 12:24 Pulse Ox 92 10/23/23 12:24 O2 Del Method Room Air 10/23/23 12:24 Pertinent Lab Results Pertinent Lab Results: Laboratory Tests 10/19/23 10/19/23 10/19/23 16:28 17:27 18:25 WBC 19.8 H RBC 3.87 L D Hgb 7.7 L D Hct 25.3 L D MCV 65.4 L MCH 19.9 L MCHC 30.4 L RDW 19.3 H Plt Count 838 H D MPV 8.5 L Immature Gran % (Auto) 0.7 H Neut % (Auto) 77.9 H Lymph % (Auto) 14.4 L Edgar % (Auto) 6.5 Eos % (Auto) 0.2 Baso % (Auto) 0.3 Lymph # (Auto) 2.8 Edgar # (Auto) 1.3 H Eos # (Auto) 0.0 Baso # (Auto) 0.1 Abs Immat Gran (auto) 0.14 H Absolute Neuts (auto) 15.4 H Absolute Nucleated RBC 0.000 Nucleated RBC % (auto) 0.0 Smear Path Review D-Dimer High Sensitivty Sodium 136 Potassium 3.4 Chloride 97 Carbon Dioxide 27 Anion Gap 15 BUN 6 L Creatinine 0.74 Estim Creat Clear Calc 107.6 Estimated GFR > 60 POC Glucose Random Glucose 114 Lactic Acid 3.5 H* Lactic Acid F/U @ 2Hr Calcium 9.0 D Magnesium 1.9 Iron TIBC % Saturation Unsat Iron Binding Ferritin 356 H Total Bilirubin 0.7 Direct Bilirubin 0.5 AST 52 H ALT 27 Alkaline Phosphatase 347 H Total Protein 6.9 Albumin 2.9 L Lipase 8 Carcinoembryonic Ag 3324.60 Vitamin B12 Urine Color Yellow Urine Appearance Cloudy Urine pH 6.0 Ur Specific [place] 1.015 Urine Protein 30 (1+) H Urine Glucose (UA) Negative Urine Ketones Negative Urine Blood Negative Urine Nitrite Negative Ur Leukocyte Esterase Moderate (2+) H Urine RBC 0-2 Urine WBC 21-50 H Ur Squamous Epith Cells 11-20 Urine Bacteria 4+ Hyaline Casts 3-5 Urine Test NEGATIVE Stool Occult Blood NEGATIVE Influenza Type A (PCR) NEGATIVE Influenza Type B (PCR) NEGATIVE RSV RNA Qual (PCR) NEGATIVE SARS-CoV-2 RNA (RT-PCR) NEGATIVE Blood Type Antibody Screen Crossmatch 10/19/23 10/19/23 10/19/23 18:43 20:55 21:31 WBC RBC Hgb Hct MCV MCH MCHC RDW Plt Count MPV Immature Gran % (Auto) Neut % (Auto) Lymph % (Auto) Edgar % (Auto) Eos % (Auto) Baso % (Auto) Lymph # (Auto) Edgar # (Auto) Eos # (Auto) Baso # (Auto) Abs Immat Gran (auto) Absolute Neuts (auto) Absolute Nucleated RBC Nucleated RBC % (auto) Smear Path Review D-Dimer High Sensitivty Sodium Potassium Chloride Carbon Dioxide Anion Gap BUN Creatinine Estim Creat Clear Calc Estimated GFR POC Glucose 113 Random Glucose Lactic Acid Lactic Acid F/U @ 2Hr 2.9 H* Calcium Magnesium Iron TIBC % Saturation Unsat Iron Binding Ferritin Total Bilirubin Direct Bilirubin AST ALT Alkaline Phosphatase Total Protein Albumin Lipase Carcinoembryonic Ag Vitamin B12 Urine Color Urine Appearance Urine pH Ur Specific [place] Urine Protein Urine Glucose (UA) Urine Ketones Urine Blood Urine Nitrite Ur Leukocyte Esterase Urine RBC Urine WBC Ur Squamous Epith Cells Urine Bacteria Hyaline Casts Urine Test Stool Occult Blood Influenza Type A (PCR) Influenza Type B (PCR) RSV RNA Qual (PCR) SARS-CoV-2 RNA (RT-PCR) Blood Type A Positive Antibody Screen NEGATIVE Crossmatch See Detail 10/20/23 10/20/23 10/20/23 06:24 07:02 09:05 WBC 17.9 H RBC 3.36 L Hgb 6.7 L* Hct 22.7 L MCV 67.6 L MCH 19.9 L MCHC 29.5 L RDW 19.6 H Plt Count 717 H MPV 8.8 L Immature Gran % (Auto) 0.8 H Neut % (Auto) 76.3 H Lymph % (Auto) 14.2 L Edgar % (Auto) 7.7 Eos % (Auto) 0.7 Baso % (Auto) 0.3 Lymph # (Auto) 2.6 Edgar # (Auto) 1.4 H Eos # (Auto) 0.1 Baso # (Auto) 0.1 Abs Immat Gran (auto) 0.14 H Absolute Neuts (auto) 13.7 H Absolute Nucleated RBC 0.000 Nucleated RBC % (auto) 0.0 Smear Path Review SEE NOTE D-Dimer High Sensitivty Sodium 141 Potassium 3.3 Chloride 104 Carbon Dioxide 27 Anion Gap 13 BUN 6 L Creatinine 0.72 Estim Creat Clear Calc 113.1 Estimated GFR > 60 POC Glucose 80 Random Glucose 81 Lactic Acid Lactic Acid F/U @ 2Hr Calcium 8.4 D Magnesium Iron 26 L TIBC 174 L % Saturation 15 Unsat Iron Binding 148 Ferritin Total Bilirubin Direct Bilirubin AST ALT Alkaline Phosphatase Total Protein Albumin Lipase Carcinoembryonic Ag 3134.00 Vitamin B12 1378 H Urine Color Urine Appearance Urine pH Ur Specific [place] Urine Protein Urine Glucose (UA) Urine Ketones Urine Blood Urine Nitrite Ur Leukocyte Esterase Urine RBC Urine WBC Ur Squamous Epith Cells Urine Bacteria Hyaline Casts Urine Test Stool Occult Blood Influenza Type A (PCR) Influenza Type B (PCR) RSV RNA Qual (PCR) SARS-CoV-2 RNA (RT-PCR) Blood Type Antibody Screen Crossmatch 10/20/23 10/20/23 10/20/23 10:42 16:32 20:47 WBC RBC Hgb Hct MCV MCH MCHC RDW Plt Count MPV Immature Gran % (Auto) Neut % (Auto) Lymph % (Auto) Edgar % (Auto) Eos % (Auto) Baso % (Auto) Lymph # (Auto) Edgar # (Auto) Eos # (Auto) Baso # (Auto) Abs Immat Gran (auto) Absolute Neuts (auto) Absolute Nucleated RBC Nucleated RBC % (auto) Smear Path Review D-Dimer High Sensitivty Sodium Potassium Chloride Carbon Dioxide Anion Gap BUN Creatinine Estim Creat Clear Calc Estimated GFR POC Glucose 111 105 182 H Random Glucose Lactic Acid Lactic Acid F/U @ 2Hr Calcium Magnesium Iron TIBC % Saturation Unsat Iron Binding Ferritin Total Bilirubin Direct Bilirubin AST ALT Alkaline Phosphatase Total Protein Albumin Lipase Carcinoembryonic Ag Vitamin B12 Urine Color Urine Appearance Urine pH Ur Specific [place] Urine Protein Urine Glucose (UA) Urine Ketones Urine Blood Urine Nitrite Ur Leukocyte Esterase Urine RBC Urine WBC Ur Squamous Epith Cells Urine Bacteria Hyaline Casts Urine Test Stool Occult Blood Influenza Type A (PCR) Influenza Type B (PCR) RSV RNA Qual (PCR) SARS-CoV-2 RNA (RT-PCR) Blood Type Antibody Screen Crossmatch 10/21/23 10/21/23 10/21/23 06:27 07:09 07:46 WBC 16.5 H RBC 3.76 L Hgb 8.0 L Hct 25.6 L MCV 68.1 L MCH 21.3 L MCHC 31.3 RDW 21.2 H Plt Count 672 H MPV 8.6 L Immature Gran % (Auto) 0.7 H Neut % (Auto) 77.2 H Lymph % (Auto) 15.0 L Edgar % (Auto) 5.6 Eos % (Auto) 1.2 Baso % (Auto) 0.3 Lymph # (Auto) 2.5 Edgar # (Auto) 0.9 Eos # (Auto) 0.2 Baso # (Auto) 0.1 Abs Immat Gran (auto) 0.12 H Absolute Neuts (auto) 12.7 H Absolute Nucleated RBC 0.000 Nucleated RBC % (auto) 0.0 Smear Path Review D-Dimer High Sensitivty 2355 Sodium 138 Potassium 3.2 L Chloride 101 Carbon Dioxide 27 Anion Gap 13 BUN 5 L Creatinine 0.61 Estim Creat Clear Calc 133.5 Estimated GFR > 60 POC Glucose 80 Random Glucose 79 Lactic Acid Lactic Acid F/U @ 2Hr Calcium 8.4 Magnesium Iron TIBC % Saturation Unsat Iron Binding Ferritin Total Bilirubin Direct Bilirubin AST ALT Alkaline Phosphatase Total Protein Albumin Lipase Carcinoembryonic Ag Vitamin B12 Urine Color Urine Appearance Urine pH Ur Specific [place] Urine Protein Urine Glucose (UA) Urine Ketones Urine Blood Urine Nitrite Ur Leukocyte Esterase Urine RBC Urine WBC Ur Squamous Epith Cells Urine Bacteria Hyaline Casts Urine Test Stool Occult Blood Influenza Type A (PCR) Influenza Type B (PCR) RSV RNA Qual (PCR) SARS-CoV-2 RNA (RT-PCR) Blood Type Antibody Screen Crossmatch 10/21/23 10/21/23 10/21/23 12:09 16:04 20:21 WBC RBC Hgb Hct MCV MCH MCHC RDW Plt Count MPV Immature Gran % (Auto) Neut % (Auto) Lymph % (Auto) Edgar % (Auto) Eos % (Auto) Baso % (Auto) Lymph # (Auto) Edgar # (Auto) Eos # (Auto) Baso # (Auto) Abs Immat Gran (auto) Absolute Neuts (auto) Absolute Nucleated RBC Nucleated RBC % (auto) Smear Path Review D-Dimer High Sensitivty Sodium Potassium Chloride Carbon Dioxide Anion Gap BUN Creatinine Estim Creat Clear Calc Estimated GFR POC Glucose 96 176 H 121 H Random Glucose Lactic Acid Lactic Acid F/U @ 2Hr Calcium Magnesium Iron TIBC % Saturation Unsat Iron Binding Ferritin Total Bilirubin Direct Bilirubin AST ALT Alkaline Phosphatase Total Protein Albumin Lipase Carcinoembryonic Ag Vitamin B12 Urine Color Urine Appearance Urine pH Ur Specific [place] Urine Protein Urine Glucose (UA) Urine Ketones Urine Blood Urine Nitrite Ur Leukocyte Esterase Urine RBC Urine WBC Ur Squamous Epith Cells Urine Bacteria Hyaline Casts Urine Test Stool Occult Blood Influenza Type A (PCR) Influenza Type B (PCR) RSV RNA Qual (PCR) SARS-CoV-2 RNA (RT-PCR) Blood Type Antibody Screen Crossmatch 10/22/23 10/22/23 10/22/23 07:14 07:57 11:13 WBC 14.4 H RBC 3.78 L Hgb 8.0 L Hct 25.8 L MCV 68.3 L MCH 21.2 L MCHC 31.0 RDW 22.3 H Plt Count 652 H MPV 8.4 L Immature Gran % (Auto) Neut % (Auto) Lymph % (Auto) Edgar % (Auto) Eos % (Auto) Baso % (Auto) Lymph # (Auto) Edgar # (Auto) Eos # (Auto) Baso # (Auto) Abs Immat Gran (auto) Absolute Neuts (auto) Absolute Nucleated RBC 0.000 Nucleated RBC % (auto) 0.0 Smear Path Review D-Dimer High Sensitivty Sodium 138 Potassium 4.2 D Chloride 103 Carbon Dioxide 24 Anion Gap 15 BUN 5 L Creatinine 0.56 Estim Creat Clear Calc 145.4 Estimated GFR > 60 POC Glucose 74 96 Random Glucose 73 Lactic Acid Lactic Acid F/U @ 2Hr Calcium 8.1 L Magnesium Iron TIBC % Saturation Unsat Iron Binding Ferritin Total Bilirubin Direct Bilirubin AST ALT Alkaline Phosphatase Total Protein Albumin Lipase Carcinoembryonic Ag Vitamin B12 Urine Color Urine Appearance Urine pH Ur Specific [place] Urine Protein Urine Glucose (UA) Urine Ketones Urine Blood Urine Nitrite Ur Leukocyte Esterase Urine RBC Urine WBC Ur Squamous Epith Cells Urine Bacteria Hyaline Casts Urine Test Stool Occult Blood Influenza Type A (PCR) Influenza Type B (PCR) RSV RNA Qual (PCR) SARS-CoV-2 RNA (RT-PCR) Blood Type Antibody Screen Crossmatch 10/22/23 10/22/23 10/23/23 16:00 19:41 07:33 WBC RBC Hgb Hct MCV MCH MCHC RDW Plt Count MPV Immature Gran % (Auto) Neut % (Auto) Lymph % (Auto) Edgar % (Auto) Eos % (Auto) Baso % (Auto) Lymph # (Auto) Edgar # (Auto) Eos # (Auto) Baso # (Auto) Abs Immat Gran (auto) Absolute Neuts (auto) Absolute Nucleated RBC Nucleated RBC % (auto) Smear Path Review D-Dimer High Sensitivty Sodium Potassium Chloride Carbon Dioxide Anion Gap BUN Creatinine Estim Creat Clear Calc Estimated GFR POC Glucose 108 72 67 Random Glucose Lactic Acid Lactic Acid F/U @ 2Hr Calcium Magnesium Iron TIBC % Saturation Unsat Iron Binding Ferritin Total Bilirubin Direct Bilirubin AST ALT Alkaline Phosphatase Total Protein Albumin Lipase Carcinoembryonic Ag Vitamin B12 Urine Color Urine Appearance Urine pH Ur Specific [place] Urine Protein Urine Glucose (UA) Urine Ketones Urine Blood Urine Nitrite Ur Leukocyte Esterase Urine RBC Urine WBC Ur Squamous Epith Cells Urine Bacteria Hyaline Casts Urine Test Stool Occult Blood Influenza Type A (PCR) Influenza Type B (PCR) RSV RNA Qual (PCR) SARS-CoV-2 RNA (RT-PCR) Blood Type Antibody Screen Crossmatch 10/23/23 10/23/23 08:19 11:14 WBC RBC Hgb Hct MCV MCH MCHC RDW Plt Count MPV Immature Gran % (Auto) Neut % (Auto) Lymph % (Auto) Edgar % (Auto) Eos % (Auto) Baso % (Auto) Lymph # (Auto) Edgar # (Auto) Eos # (Auto) Baso # (Auto) Abs Immat Gran (auto) Absolute Neuts (auto) Absolute Nucleated RBC Nucleated RBC % (auto) Smear Path Review D-Dimer High Sensitivty Sodium Potassium Chloride Carbon Dioxide Anion Gap BUN Creatinine Estim Creat Clear Calc Estimated GFR POC Glucose 94 77 Random Glucose Lactic Acid Lactic Acid F/U @ 2Hr Calcium Magnesium Iron TIBC % Saturation Unsat Iron Binding Ferritin Total Bilirubin Direct Bilirubin AST ALT Alkaline Phosphatase Total Protein Albumin Lipase Carcinoembryonic Ag Vitamin B12 Urine Color Urine Appearance Urine pH Ur Specific [place] Urine Protein Urine Glucose (UA) Urine Ketones Urine Blood Urine Nitrite Ur Leukocyte Esterase Urine RBC Urine WBC Ur Squamous Epith Cells Urine Bacteria Hyaline Casts Urine Test Stool Occult Blood Influenza Type A (PCR) Influenza Type B (PCR) RSV RNA Qual (PCR) SARS-CoV-2 RNA (RT-PCR) Blood Type Antibody Screen Crossmatch Airway Mallampati Class: III TM Dist: >3cm Neck ROM: Full Loose/Missing/Broken Teeth: Yes and No Heart: RRR Lungs: CTA Assessment and Plan Assessment Anesthesia Assessment: Anesthesia Plan Discussed and Chart Reviewed Final Anesthetic Review History of Problems with Anesthesia: No NPO: Yes ASA Class: III Final Preanesthetic Review: Meds/Allgs Chart Reviewed, Consent Obtained/Reviewed and Anes Risks/Benef Reviewed Patient Risk: Intermediate Procedure Risk: Intermediate Anesthetic Plan Anesthetic Plan: MAC: Disposition: Standard PACU
[2023-10-23 12:46] LABS: Glucose, Whole Blood 68 mg/dL (60-115)
[2023-10-23] MEDS: Dextrose 5 % 100 ML IVCONT (12:51)
--- NOTE | 2023-10-23 13:03 | P.HPSUR_ITS ---
Pre-Procedural Eval Section A - 24 Hr Update-Section A only Date of Service: 10/23/23 The patient is an INPATIENT: Yes Changes since office visit: Yes New Medical Problems, Yes Changes in Medication and Yes Patient answered all questions; No Cold of Flu in the past 2 weeks The patient has been examined within 24 hours of the surgical procedure. The History & Physical has been completed within 30 days and I have reviewed it.: Yes Section B - Complete if H&P > 30 days Chief Complaint: Fever Allergies: Allergies Allergy/AdvReac Type Severity Reaction Status Date / Time No Known Allergies Allergy Verified 10/19/23 15:57 Plan Diagnosis/Plan: Change (proceed with colonoscopy, may need EGD if colon is neg ative) I have reviewed the history and physical and performed a pertinent physical examination on my patient. No changes have occurred unless specified. Time Spent With Patient Time: Total time managing care of this patient today ____ minutes.
--- NOTE | 2023-10-23 13:05 | P.OP_ITS ---
Operative Note Operative Note Date of Service: 10/23/23 Narrative: FLEXIBLE TRANSORAL UPPER GASTROINTESTINAL ENDOSCOPY WITH BIOPSIES AND COLONOSCOPY TILL CECUM WITH BIOPSIES AND SNARE POLYPECTOMY Pre-op diagnosis: Colon cancer screening, GERD Post-op diagnosis: Esophagitis, Gastritis, Gastric polyp, Colon Polyps, Diverticulosis, hemorrhoids Endoscopist:? Jose David Smith MD Anesthesia:?MAC COLONOSCOPY PROCEDURE NOTE Instrument: Olympus [PCF H 190 L] [CF H 190 L] variable stiffness [adult] [pediatric] colonoscope Monitoring: Vital signs and clinical assessment, intermittent blood pressure monitoring, continuous EKG monitoring, Pulse oximetry and Carbon Dioxide monitoring were done throughout the procedure. Please see anesthesia flowsheet. Colon withdrawl time was [ ] minutes. Procedure: The patient was placed in the left lateral decubitis position and pre-procedure medications were administered. After a digital rectal examination of the ano-rectum, the video colonoscope was inserted into the rectum and advanced through the colon to the cecum. The colonoscope was slowly withdrawn in a retrograde panoramic fashion and the colon mucosa was carefully examined including a retroflexed view of the rectum. Findings and interventions are described below. Procedure Difficulty: [without difficulty] [LLQ pressure was applied to intubate the cecum/ascending colon] Findings: Terminal Ileum: Not evaluated Cecum: Normal Ascending Colon: Normal Transverse Colon: Normal Descending Colon: Normal Sigmoid Colon: Moderate diverticulosis Rectum: Normal Ano-rectum: Moderate internal hemorrhoids Colon preparation: [Excellent], [Good] [Fair] [Poor] after [some] [copious] irrigation. [place] Bowel Preparation Scale Right colon; [ ] Transverse colon: [ ] Left colon; [ ] (0 = Unprepared colon segment with mucosa not seen due to solid stool that cannot be cleared. 1 = Portion of mucosa of the colon segment seen, but other areas of the colon segment not well seen due to staining, residual stool and/or opaque liquid. 2 = Minor amount of residual staining, small fragments of stool and/or opaque liquid, but mucosa of colon segment seen well. 3 = Entire mucosa of colon segment seen well with no residual staining, small fragments of stool or opaque liquid) UPPER ENDOSCOPY Consent: Indications for the procedure and potential complications of bleeding, perforation, reaction to medications and missed diagnosis were discussed with the patient and informed consent was obtained. Instrument: Olympus GIF H 190 mid size upper endoscope Monitoring: Vital signs and clinical assessment, continuous EKG monitoring, Pulse oximetry, Carbon Dioxide monitoring and blood pressure monitoring were done throughout the procedure. Procedure: The patient was placed in the left lateral decubitis position and pre-procedure medications were administered and a bite block was placed. The endoscope was inserted into the mouth and advanced under direct vision to the third part of duodenum. A careful inspection was made as the upper endoscope was withdrawn including a retroflexed examination of the proximal stomach; Findings and interventions are described below. Findings: Larynx: Normal Esophagus: GE junction at 40 cms. A single 1 cms healing erosion ar GE junction. No Do's. Stomach: Multiple 1-2 cms benign appearing polyps in the gastric fundus - biopsied. Moderate diffuse gastric erythema - biopsies were obtained from the antrum. Grade 2 flap valve on retroflexed examination of the cardia. Duodenum: Normal bulb and descending duodenum Biopsies were obtained from descending duodenum to check for celiac sprue Intervention: Biopsies as noted above Impression and Post Procedure Diagnosis: Endoscopy Findings: ESOPHAGUS: STOMACH: DUODENUM: Colonoscopy Findings: [ ] polyp[s] were [detected] [removed] Moderate diverticulosis seen in the [sigmoid] [left] [entire] colon [Moderate] [small] [large] hemorrhoids on retroflexed exam. Plan: Pt has a FU appointment on [ ] with [Ophelia Barajas NP], [ANIL Edwards], [Denise Nassar], [Dr Smith] Repeat Colonoscopy in 3-5 years if polyps are adenomatous and 10 year if polyps are hyperplastic. Above findings were reviewed with the patient and relevant handouts were given and the discharge area.
--- NOTE | 2023-10-23 13:52 | W.PM.OPN ---
Operative Note Operative Note Date of Service: 10/23/23 Narrative: COLONOSCOPY TILL DISTAL TRANSVERSE COLON WITH BIOPSIES AND SUBMUCOSAL INJECTION Pre-op diagnosis: Abnormal CT scan of the sigmoid, multiple liver lesion (suspected metatsatic disease). Post-op diagnosis:? partially obstructing sigmoid colon mass, hemorrhoids Endoscopist:? Jose David Smith MD Anesthesia:?MAC Consent: Indications for the procedure and potential complications of bleeding, perforation, reaction to medications and missed diagnosis were discussed with the patient and informed consent was obtained. Instrument: Olympus PCF H 190 L variable stiffness pediatric colonoscope and GIF H190 medsize upper endoscope Monitoring: Vital signs and clinical assessment, intermittent blood pressure monitoring, continuous EKG monitoring, Pulse oximetry and Carbon Dioxide monitoring were done throughout the procedure. Please see anesthesia flowsheet. Procedure: The patient was placed in the left lateral decubitis position and pre-procedure medications were administered. After a digital rectal examination of the ano-rectum, the video colonoscope was inserted into the rectum and advanced through the colon to 20 cms into the distal sigmoid colon. It was not possible to advance further due to a circumferential, polypoid and ulcerated mass. The pediatric colonoscope was removed and a mid-size upper endoscope was introduced into the rectum and advanced through the mass to 100 cm into the distal transverse colon. The colonoscope was slowly withdrawn in a retrograde panoramic fashion and the colon mucosa was carefully examined including a retroflexed view of the rectum. Findings and interventions are described below. Procedure Difficulty: The upper endoscope was passed through the mass with some difficulty due to narrowing with partial obstruction. Findings: Terminal Ileum: Not evaluated Cecum: Not evaluated Ascending Colon: Not evaluated Transverse Colon: Partially evaluated due to suboptimal prep Descending Colon: Partially evaluated due to suboptimal prep Sigmoid Colon: A polypoidal, ulcerated circumferential mass at 20 cms with luminal narrowing and partial obstruction. Pediatric colonoscope could not be advanced through the mass. A mid-size upper endoscope was used to traverse the mass into the distal transverse colon. Mass extended from 20 to 25 cms. Multiple biopsies were obtained and uli ink was injected at the proximal margin of the mass Rectum: Normal Ano-rectum: Small non-bleeding internal hemorrhoids Colon preparation: Fair with liquid and semisolid stools despite copious irrigation. [place] Bowel Preparation Scale Right colon; 1 Transverse colon: 1 Left colon; 1 (0 = Unprepared colon segment with mucosa not seen due to solid stool that cannot be cleared. 1 = Portion of mucosa of the colon segment seen, but other areas of the colon segment not well seen due to staining, residual stool and/or opaque liquid. 2 = Minor amount of residual staining, small fragments of stool and/or opaque liquid, but mucosa of colon segment seen well. 3 = Entire mucosa of colon segment seen well with no residual staining, small fragments of stool or opaque liquid) Impression and Post Procedure Diagnosis: Colonoscopy Findings: A polypoidal, ulcerated circumferential mass at 20 cms with luminal narrowing and partial obstruction. Pediatric colonoscope could not be advanced through the mass. A mid-size upper endoscope was used to traverse the mass into the distal transverse colon. Mass extended from 20 to 25 cms. Multiple biopsies were obtained and uli ink was injected at the proximal marginof the mass Small hemorrhoids on retroflexed exam. Plan: Await pathology results If pt develops obstructive symptoms in the future, she would be a candidate for palliative stent placement Resume oral iron and start Miralax daily to prevent constipation - order placed Above findings were reviewed with the hospitalist and patient's daughter, Pamela. Pt is being followed by Oncology. BIOPSIES SHOWED: Addendum #1 CDX2 immunostain is positive consistent with colonic origin. Control stains appropriately. Colon, sigmoid mass, biopsy: Intramucosal adenocarcinoma, at least. Comment: The fragments are superficial and a submucosal or deeper invasive lesion cannot be evaluated on these biopsies.
[2023-10-23 14:04] LABS: Glucose, Whole Blood 83 mg/dL (60-115)
--- NOTE | 2023-10-23 14:45 | MHC.CM.PN ---
EMR reviewed and per MD rounds, pt is not medically cleared for D/C today due to getting a colonoscopy today, anticipating pt will D/C home tomorrow.
[2023-10-23 16:02] LABS: Glucose, Whole Blood 74 mg/dL (60-115)
[2023-10-23] MEDS: cefTRIAXone sodium 1 GM in 0.9 % Sodium Chloride 50 ML IV (19:01)
[2023-10-23 20:54] LABS: Glucose, Whole Blood 145 mg/dL (60-115)
[2023-10-23] MEDS: Cyclobenzaprine HCl 5 MG TABLET PO (21:47)
[2023-10-23] MEDS: Amitriptyline HCl 50 MG TABLET PO (21:47)
[2023-10-23] MEDS: Gabapentin 600 MG TABLET PO (21:48)
[2023-10-24] MEDS: Omeprazole 20 MG CAPSULE.DR PO (05:21)
[2023-10-24 07:05] LABS: Glucose, Whole Blood 76 mg/dL (60-115)
--- NOTE | 2023-10-24 07:25 | PM.DS ---
DS: Providers Provider Date of Service: 10/24/23 Date of admission: 10/19/23 19:11 Primary care physician: ANIL Vega Consults: 10/19/23 20:32 Consult to Gastroenterology Routine Consulting Provider: Jose David Smith Reason for consultation: anemia, sigmoid mass Consult to Hematology / Oncology Routine Consulting Provider: Jese Rasmussen Reason for consultation: ?metastatic sigmoid ca DS: Diagnosis Discharge Diagnosis (1) Colonic mass: Status: Acute (2) Anemia: Status: Acute (3) Abnormal CT scan, liver: Status: Acute DS: Summary Hospital Course Hospital Course: History and physical as per admitting provider. Pt is a 48-year-old female with a PMH significant for?mild intermittent asthma, HLD, [id number]-mumwtwzzk diabetes type 2, iron-deficiency anemia, and fibromyalgia who presents to the ED with?generalized weakness, anorexia, and lightheadedness and dizziness x2 weeks. Patient reports that over the past couple of days patient has felt much more weak than normal, and she felt her ?legs could not support? her. He has been having with difficulty walking and standing. Has experienced dizziness and lightheadedness with positional changes. Family is at bedside who also reports she has been pale looking for the past 2+ weeks. Has been to see her PCP for microcytic anemia and started on iron supplementation 1-2 months ago. Also notes approximately 1-2 months ago she noticed some bright red blood in the toilet and with wiping, though resolved after starting iron supplementation. Has had no rectal pain. Denies melena or dark colored stool. Does report burning with urination x1 week as well as subjective fever and chills. Also notes right lower flank pain. Has not been eating or drinking normally well for the past week. Denies chest pain/pressure, palpitations. No shortness of breath. Denies headache. In the ED pt was febrile up to 102.2, tachycardic up to 142, tachypneic up to 23, and soft BP as low as 87/66. Labs were significant for leukocytosis of 19.8, microcytic anemia of H&H 7.7/25.3 with MCV 65.4 (down from 11.0/35.5 on 05/25/2023), lactic acid 3.5, AST 52, alk-phos 347, and albumin 2.9. No significant electrolyte abnormalities. Renal function WNL. UA showing moderate leukocyte esterase with wbc's 25-50, and bacteria 4+. Stool negative for occult blood. Tested negative for influenza type a and B, RSV, and COVID. CXR showed unremarkable chest examination. CT?of abdomen and pelvis showing hepatomegaly with multi lobulated infiltrating mass/nodules throughout the left hepatic lobe and caudate lobe concerning for primary versus metastatic lesion. Also showed diffuse mural thickening involving a short segment of sigmoid colon suspicious for a primary sigmoid lesion; and an abnormal 1.7 cm right internal iliac lymph node. EKG demonstrated sinus tachycardia with no evidence of ST elevations or depressions. Pt was treated with acetaminophen, IVF, and ceftriaxone. Pt will be admitted to the hospital for treatment and further evaluation of UTI with sepsis and microcytic anemia likely secondary to sigmoid colon and liver lesions concerning for malignancy. 48-year-old woman treated for acute on chronic microcytic anemia. She is status post 2 units packed red blood cells. Abdominal CT showed infiltrating mass throughout the left hepatic lobes as well as suspicious lesion on sigmoid colon. CEA was 3134. She was seen and evaluated by Hematology and will follow-up outpatient see results. She did have colonoscopy to be 10/23/2023. She has a history of sinus tachycardia but due to possible malignancy chest CTA was completed which was negative for PE, her heart rate throughout the admission has improved some. She was also treated for sepsis secondary to E coli UTI. She was treated with IV ceftriaxone and will complete a few more doses at home. Blood cultures have remained negative. Depending on biopsy results, if positive patient will require a Port-A-Cath initiation of chemotherapy treatment as per oncology. Patient will be discharged home in the meantime and she is agreeable with this. Mild intermittent asthma. No exacerbation during hospitalization. Continue home medications Hyperlipidemia. Continue statin History of fibromyalgia. Continue amitriptyline, Wellbutrin, BuSpar and gabapentin Diabetes mellitus type 2. Continue metformin GERD. Continue PPI History of migraine headache continue home medication Time Attestation Discharge Coordination Time (in mins): 45 Quality: Safe Use of Opioids Does Pt have an Active Cancer Diagnosis on the Problem List?: No Quality: Stroke Does the patient have a stroke diagnosis?: No Physical Exam Vital Signs: Vital Signs: Last Vital Signs Temp 97.4 F 10/23/23 20:47 Pulse 100 10/23/23 20:47 Resp 20 10/23/23 20:47 BP 119/66 10/23/23 20:47 Pulse Ox 96 10/23/23 20:47 O2 Del Method Room Air 10/23/23 20:47 BMI result Body Mass Index 40.9 Appearing in no acute distress head is normocephalic atraumatic eyes pupils are PERRLA sclera is anicteric mouth throat mucous membranes are intact and moist neck is supple no lymphadenopathy, no JVD noted lung sounds are clear to auscultation heart regular rate rhythm, clear S1, S2 positive bowel sounds, abdomen is soft, nontender neuro patient is alert x3, no focal deficits DS: Data Data Completed and Pending Pending studies at discharge: Pending at discharge 10/23/23 13:39 Surgical [PTH] Routine Labs on day of discharge: Laboratory Results - last 24 hr 10/23/23 10/23/23 10/23/23 07:33 08:19 11:14 POC Glucose 67 94 77 10/23/23 10/23/23 10/23/23 12:42 14:00 15:57 POC Glucose 68 83 74 10/23/23 10/24/23 20:48 07:01 POC Glucose 145 H 76 Preliminary micro results at discharge 10/19/23 17:27 Blood Culture - Preliminary Blood - Venous No growth after 48 hours. 10/19/23 17:09 Blood Culture - Preliminary Blood - Venous No growth after 48 hours. Discharge Plan Discharge Anticipated Discharge Date/Time: 10/24/23 07:18 Patient Disposition: Home, Self-Care Discharge Diagnosis: Sepsis secondary to E coli UTI Acute on chronic microcytic anemia Chronic sinus tachycardia Liver nodules Referrals: Jese Rasmussen MD [Physician] - None Regina Barr PA [Primary Care Provider] - 1 Week Discharge Medications: New cefuroxime axetil 500 mg tablet 500 mg PO BID Qty: 6 0RF Continued Vitron-C 65 mg iron- 125 mg tablet,delayed release (DR/EC) 1 tab PO DAILY 90 Days Qty: 90 0RF Rx Instructions: swallow whole; do not chew/break/dissolve/open cholecalciferol (vitamin D3) 125 mcg (5,000 unit) capsule 125 mcg PO DAILY 90 Days Qty: 90 0RF albuterol sulfate 90 mcg/actuation aerosol powdr breath activated 2 inh inhalation Q4-6H PRN (Reason: shortness of breath or wheezing) Qty: 1 0RF atorvastatin 40 mg tablet 40 mg PO DAILY gabapentin 600 mg tablet 600 mg PO BEDTIME rizatriptan 10 mg tablet 10 mg PO DAILY MRX1 PRN (Reason: migraine) amitriptyline 50 mg tablet 50 mg PO BEDTIME buspirone 10 mg tablet 10 mg PO BID PRN (Reason: Anxiety) metformin 500 mg tablet extended release 24 hr 1,000 mg PO BID bupropion HCl 300 mg tablet extended release 24 hr 300 mg PO QAM ferrous sulfate 325 mg (65 mg iron) tablet,delayed release (DR/EC) 325 mg PO DAILY albuterol sulfate 2.5 mg /3 mL (0.083 %) solution for nebulization 3 mg inhalation Q4H PRN (Reason: breathing) cyclobenzaprine 5 mg tablet 5 mg PO BEDTIME cetirizine 10 mg tablet 10 mg PO DAILY pantoprazole 40 mg tablet,delayed release (DR/EC) 40 mg PO DAILY bupropion HCl 150 mg tablet extended release 24 hr 150 mg PO QAM fluticasone propionate 50 mcg/actuation spray,suspension 2 spray intranasal BEDTIME montelukast 10 mg tablet 10 mg PO DAILY triamcinolone acetonide 0.025 % lotion 1 appl topical BID PRN (Reason: itch) cyclobenzaprine 5 mg tablet 5 mg PO BID@0900,1300 PRN (Reason: Muscle Spasm) Discharge Orders: Discharge Order (Routine); Ordered 10/24/23 Ordered By: Davina Shannon Diet: Advance to usual diet Activity on Discharge: As tolerated Stand Alone Forms: Patient Portal Discharge page Care Plan Goals: Biopsy results will be followed up by oncology Health Concerns: Sepsis secondary to E coli UTI Acute on chronic microcytic anemia Chronic sinus tachycardia Liver nodules Plan of Treatment: Follow up with oncology for biopsy results Take all medications as prescribed Assessment: See discharge summary
[2023-10-24 08:16] VITALS: BP 101/62; PULSE 115; RESP 20; TEMP 37.7; O2SAT 100
--- NOTE | 2023-10-24 09:12 | MHC.CM.PN ---
Pt has been medically cleared for DC. She will go home via private transport and resume her prior [facility] and [facility] services.
[2023-10-24] MEDS: polyethylene glycoL 3350 17 GM POWD.PACK PO (09:14)
[2023-10-24] MEDS: buPROPion HCl XL 300 MG TAB.ER.24H PO (09:15)
[2023-10-24] MEDS: 0.9 % Sodium Chloride Flush 3 ML SYRINGE IVFLUSH (09:15)
[2023-10-24] MEDS: Potassium Chloride ER 20 MEQ TAB.ER.PRT 40 MEQ PO (09:15)
[2023-10-24] MEDS: Cholecalciferol (Vitamin D3) 25 MCG TABLET 125 MCG PO (09:15)
[2023-10-24] MEDS: Montelukast Sodium 10 MG TABLET PO (09:15)
[2023-10-24] MEDS: Atorvastatin Calcium 40 MG TABLET PO (09:15)
[2023-10-24] MEDS: buPROPion HCl XL 150 MG TAB.ER.24H PO (09:15)
[2023-10-24] MEDS: Loratadine 10 MG TABLET PO (09:15)
--- NOTE | 2023-10-24 11:40 | HO.POSTANES ---
Post Anesthesia Evaluation Post Anesthesia Evaluation Date of Service: 10/24/23 Vital Signs: Vital Signs Temp Pulse Resp BP Pulse Ox O2 Del Method 10/24/23 08:16 99.9 F 115 H 20 101/62 100 Room Air Anesthesia: Monitored Mental Status: Awake Pain Control: Satisfactory Nausea/Vomiting: None Hydration: Adequate Anesthesia-Related Issues: No Anes. Related Issues
== END 2023-10-24 10:30 | disposition home or self-care (01) | DRG 720 ==
LOC: HO.ED 17:01 → HO.EDOVER 20:05 → HO.IMC 10-20 00:28
PROVIDERS: Internal Medicine Gastroenterology; Internal Medicine Medical Oncology; Physician Assistant; Physician Assistant Medical; Student in an Organized Health Care Education/Training Program; Admitting Provider Student in an Organized Health Care Education/Training Program; Emergency Provider Emergency Medicine; PCP Physician Assistant Medical; Visit Provider Nurse Practitioner Acute Care
PROC: 0DJD8ZZ Inspection of Lower Intestinal Tract, Via Natural or Artificial Opening Endoscopic (ICD-10-PCS; CPT 45378; principal; 2023-10-23 12:30)
DX: A41.9 Sepsis, unspecified organism (principal); C22.9 Malignant neoplasm of liver, not specified as primary or secondary; N39.0 Urinary tract infection, site not specified; C18.7 Malignant neoplasm of sigmoid colon; D63.0 Anemia in neoplastic disease; B96.20 Unspecified Escherichia coli [E. coli] as the cause of diseases classified elsewhere; E66.01 Morbid (severe) obesity due to excess calories; E78.5 Hyperlipidemia, unspecified; J45.20 Mild intermittent asthma, uncomplicated; G43.909 Migraine, unspecified, not intractable, without status migrainosus; K64.8 Other hemorrhoids; Z68.41 Body mass index [BMI] 40.0-44.9, adult; E86.0 Dehydration; M79.7 Fibromyalgia; Z20.822 Contact with and (suspected) exposure to COVID-19; Z79.51 Long term (current) use of inhaled steroids; Z79.84 Long term (current) use of oral hypoglycemic drugs; Z79.899 Other long term (current) drug therapy
CPT/HCPCS: 0241U; 36415; 71046; 71275; 74177; 80048; 80053; 81001; 81025; 82248; 82272; 82378; 82607; 82728; 82947; 83540; 83605; 83690; 83735; 85025; 85027; 85379; 86850; 86900; 86901; 86923; 87040; 87086; 87088; 87186; 88304; 88305; 88342; 93005; 94660; 99285; J0696; J2704; P9016; Q9967

== ENCOUNTER → 2023-10-19 15:59 | Outpatient (BNV) | payer MEDICAID, SELFPAY | PROVIDERS: Admitting Provider Student in an Organized Health Care Education/Training Program; Emergency Provider Emergency Medicine; PCP Physician Assistant Medical; Visit Provider Internal Medicine Cardiovascular Disease | DX: R00.0 Tachycardia, unspecified (principal) | CPT/HCPCS: 93010 ==

== ENCOUNTER → 2023-10-19 19:11 | Outpatient (BNV) | payer OTHER, SELFPAY | PROVIDERS: Admitting Provider Student in an Organized Health Care Education/Training Program; Emergency Provider Emergency Medicine; PCP Physician Assistant Medical; Visit Provider Internal Medicine Gastroenterology | DX: R93.3 Abnormal findings on diagnostic imaging of other parts of digestive tract (principal); D12.5 Benign neoplasm of sigmoid colon | CPT/HCPCS: 45380; 45381 ==

== ENCOUNTER → 2023-10-19 19:11 | Outpatient (BNV) | payer OTHER, SELFPAY | PROVIDERS: Admitting Provider Student in an Organized Health Care Education/Training Program; Emergency Provider Emergency Medicine; PCP Physician Assistant Medical; Visit Provider Internal Medicine Medical Oncology | DX: C18.7 Malignant neoplasm of sigmoid colon (principal) | CPT/HCPCS: 99222 ==

== ENCOUNTER → 2023-10-19 19:11 | Outpatient (BNV) | payer MEDICAID, SELFPAY | PROVIDERS: Admitting Provider Student in an Organized Health Care Education/Training Program; Emergency Provider Emergency Medicine; PCP Physician Assistant Medical; Visit Provider Student in an Organized Health Care Education/Training Program | DX: K63.89 Other specified diseases of intestine (principal); D64.9 Anemia, unspecified; R93.2 Abnormal findings on diagnostic imaging of liver and biliary tract | CPT/HCPCS: 99223; 99232; 99233; 99239 ==

== ENCOUNTER → 2023-10-19 19:11 | Outpatient (BNV) | payer MEDICAID, SELFPAY | PROVIDERS: Admitting Provider Student in an Organized Health Care Education/Training Program; Emergency Provider Emergency Medicine; PCP Physician Assistant Medical; Visit Provider Internal Medicine Gastroenterology | DX: K63.89 Other specified diseases of intestine (principal); D64.9 Anemia, unspecified; R93.2 Abnormal findings on diagnostic imaging of liver and biliary tract | CPT/HCPCS: 99499 ==

== ENCOUNTER → 2023-10-31 14:00 | Outpatient (BNV) | payer OTHER, SELFPAY | PROVIDERS: PCP Physician Assistant Medical; Visit Provider Internal Medicine Medical Oncology | DX: C18.7 Malignant neoplasm of sigmoid colon (principal); C78.7 Secondary malignant neoplasm of liver and intrahepatic bile duct | CPT/HCPCS: 99213; 99214 ==

== ENCOUNTER → 2023-11-01 10:01 | Day surgery (SDC) | payer OTHER, SELFPAY ==
[2023-11-01 10:31] VITALS: BMI 38.3
[2023-11-01 10:41] LABS: Glucose, Whole Blood 112 mg/dL (60-115)
[2023-11-01 10:58] LABS: INTERNATIONAL NORM RATIO 1.5 (0.9-1.1); Prothrombin Time 17.9 SEC (11.1-13.3)
--- NOTE | 2023-11-01 11:25 | PM.EVENT ---
Event Note Date of Service: 11/01/23 Event Note: Patient presents [facility] for a percutaneous liver biopsy to confirm metastatic colon cancer. On arrival patient is noted to have a HR of >140, SBP 115, and O2 sat low 90s on RA. [place] was [place] [facility] [place] was treated for sepsis for a UTI and underwent a colonoscopy. She had a CTA of the chest during that admission, however, the exam was very limited. Discussed case with covering oncologist, Dr. Pope. Patient will need evaluation in the ED and likely a repeat CTA to rule in a PE, which would require anticoagulation. This would be a contraindication if a liver biopsy was performed prior to this examination. Discussed case with accepting ED physcian Dr. Kent. SSS and patient updated on plan. Ramos MA Interventional Radiology Time Spent With Patient Time: Total time managing care of this patient today ____ minutes.
--- NOTE | 2023-11-01 11:42 | PC.NURSE ---
pt in for liver bx and hooked up to monitor. hr 140's and o2 sat 90-9% room air. rr=24. feels winded, fatigue. virgilio correia pa alerted and came to eval pt. pt states hr has been up like this a long time even before her cancer dx and no tx. hasn't been sick with any resp issues recently. virgilio correia came back after evaluating pt and spoke with dr senior. concern for P.E. raised with last admission to hospital having a poor ct scan study. pt informed in [place] that she had to be evaluated in er to have another ct done and liver bx cancelled for time being. told if has pe will have to start anticoag's and bx can't be done with those on board. she understands. offered to call her dtr but declined until after eval in er. rn in er told to inform dtr after eval done only. 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
== END ==
PROVIDERS: Physician Assistant Surgical; PCP Physician Assistant Medical; Visit Provider Internal Medicine Medical Oncology
DX: C18.9 Malignant neoplasm of colon, unspecified (principal); Z53.8 Procedure and treatment not carried out for other reasons; R00.9 Unspecified abnormalities of heart beat
CPT/HCPCS: 36415; 82947; 85610; 85730; 86850; 86870; 86900; 86901; J2250; J2310; J3010

== ENCOUNTER 2023-11-01 11:38 | Inpatient (IN) | payer OTHER, SELFPAY ==
--- NOTE | ~2023-11-01 | XR_ITS ---
EXAMINATION: XR CHEST CLINICAL INFORMATION: Hypoxia. COMPARISON: 10/19/2023 TECHNIQUE: Frontal view of the chest was obtained. FINDINGS: Low lung volumes. No focal consolidation. No pleural effusion. Cardiac silhouette is unchanged. XR/XR chest 1V IMPRESSION: No acute abnormality.
--- NOTE | ~2023-11-01 | CT_ITS ---
EXAMINATION: CT ANGIOGRAM OF THE CHEST WITH AND WITHOUT CONTRAST (CT PULMONARY ANGIOGRAM FOR PE) CLINICAL INFORMATION: Reason for Exam metastatic disease with tachycardia and hypoxia COMPARISON: CT pulmonary angiogram on 10/21/2023 TECHNIQUE: Prior to contrast administration, noncontrast localization images were obtained. Subsequently, multidetector volumetric imaging was performed from the thoracic inlet to below the diaphragms following the administration of 65 mL Omnipaque 350 intravenous contrast. No contrast reaction reported Sagittal, coronal, and MIP oblique sagittal reformatted images were obtained on the CT workstation, uploaded to PACS, and reviewed. This CT examination was performed using dose optimization techniques as appropriate, variously including the following: *Automated exposure control *Adjustment of mA and/or kV according to patient size (this includes techniques or standardized protocols for targeted exams where dose is matched to indication/reason for exam; i.e. extremities or head) *Use of iterative reconstruction technique DLP: 1011.29 mGy-cm FINDINGS: PULMONARY ARTERIES: The main pulmonary arteries, lobar and segmental arterial branches show very poor enhancement without filling defects. Main pulmonary trunk measures 84 Hounsfield units in mean attenuation. LUNGS: Oblique platelike atelectasis is seen along the lateral border of right lower lobe. PLEURA: No pleural effusion or pneumothorax is seen. PERICARDIUM: No pericardial effusion is seen. MEDIASTINUM AND HENNY: No abnormally enlarged mediastinal or hilar lymph nodes are seen. TRACHEOBRONCHIAL TREE: Trachea and bilateral mainstem bronchi are patent. THORACIC AORTA: The thoracic aorta is normal in size and smoothly patent. CORONARY ARTERY CALCIFICATIONS: None CHEST WALL AND LOWER NECK: The subcutaneous and muscular chest wall are intact with no focal lesion. No abnormal mass lesion could be seen in the visualized lower neck. BONES: No fracture or dislocation. No focal bone lesion diagnostic of metastatic disease could be seen in the thorax. VISUALIZED UPPER ABDOMEN: Extensive poorly demarcated hypoenhancing metastatic liver tumors are present. There is borderline splenomegaly, measuring 13.8 [address] in AP length. CT/CT angio chest PE protocol IMPRESSION: 1. Even worse contrast filling of the pulmonary arteries than on previous suboptimal examination, rendering the current CT angiogram nondiagnostic for pulmonary embolism. 2. Persistent oblique platelike atelectasis along the lateral border of right lower lobe. 3. Unchanged, No thoracic aortic aneurysm or dissection is seen. 4. Persistent extensive hepatic metastatic tumor infiltration. Fleischner guidelines were followed. VTE: indeterminate
--- NOTE | ~2023-11-01 | US_ITS ---
EXAMINATION: US VENOUS ULTRASOUND WITH DOPPLER LOWER EXTREMITY, BILATERAL CLINICAL INFORMATION: Hypoxia. Nondiagnostic CT angiogram of the chest COMPARISON: None available. TECHNIQUE: Ultrasound of the deep veins is performed from the hip to the calf with compression sonography and color and pulse Doppler assessment. Spectral analysis with color-flow imaging is performed. FINDINGS: RIGHT: There is normal venous compression and respiratory variation and augmented flow. The visualized common femoral vein, superficial femoral vein, profunda femoral vein, popliteal vein, and the trifurcation region shows no evidence of deep venous thrombosis. There is no significant popliteal fossa cyst. LEFT: There is normal venous compression and respiratory variation and augmented flow. The visualized common femoral vein, superficial femoral vein, profunda femoral vein, popliteal vein, and the trifurcation region shows no evidence of deep venous thrombosis. There is no significant popliteal fossa cyst. If the patient's symptoms persist, followup ultrasound in 5 days 7 days might be of value to exclude proximal propagation from a non-visualized calf vein. US/US venous duplex LE BI IMPRESSION: No DVT demonstrated in the bilateral lower extremity.
--- NOTE | ~2023-11-01 | CT_ITS ---
EXAMINATION: CT HEAD WITHOUT CONTRAST CLINICAL INFORMATION: Metastases. COMPARISON: None available. TECHNIQUE: Contiguous axial imaging was performed from the skull base to vertex without intravenous administration of contrast. This CT examination was performed using dose optimization techniques as appropriate, variously including the following: *Automated exposure control. *Adjustment of mA and/or kV according to patient size (this includes techniques or standardized protocols for targeted exams where dose is matched to indication/reason for exam; i.e. extremities or head). *Use of iterative reconstruction technique. DLP: 1011 mGy-cm FINDINGS: Chronic lacunar infarct within the left cerebellar hemisphere with associated volume loss. No additional loss of tinajero-white matter differentiation. No evidence of acute intracranial hemorrhage. No additional parenchymal attenuation abnormalities. The ventricles are normal in morphology and size. No evidence for obstructive hydrocephalus. No abnormal mass effect or midline shift. No extra-axial fluid collections. No acute soft tissue or osseous abnormalities. Mild mucosal thickening of the paranasal sinuses. The mastoid air cells and middle ear cavities are clear. CT/CT head/brain wo IV con IMPRESSION: 1. No evidence of acute intracranial hemorrhage or edematous territorial infarction. 2. Chronic lacunar infarct of the left cerebellar hemisphere. 3. No demonstrated abnormal mass effect on the noncontrast evaluation.
--- NOTE | ~2023-11-01 | NM_ITS ---
PULMONARY PERFUSION ONLY STUDY: CLINICAL INDICATION: Nondiagnostic CTA. Known metastatic disease with tachycardia and hypoxia. PROCEDURE: Following the intravenous administration of 4.0 millicuries technetium 99m MAA, images of the chest were obtained in multiple projections using a gamma scintiphotographic camera. COMPARISON: Nondiagnostic CTA done on 11/01/2023 and chest radiograph also done on 11/01/2023. PERFUSION IMAGES: No large or significant segmental perfusion defects are noted on either side. NM/NM pul perfusion IMPRESSION: Based on perfusion only modified PIOPED 2 criteria, pulmonary thromboembolism is considered absent.
[2023-11-01 11:51] VITALS: BP 104/57; PULSE 135; RESP 24; TEMP 37.6; O2SAT 94; BMI 38.3
--- NOTE | 2023-11-01 12:19 | ECG_ITS ---
Test Reason : TACHYCARDIA Blood Pressure : / mmHG Vent. Rate : 130 BPM Atrial Rate : 130 BPM P-R Int : 146 ms QRS Dur : 084 ms QT Int : 296 ms P-R-T Axes : 045 051 043 degrees QTc Int : 435 ms Sinus tachycardia Otherwise normal ECG When compared with ECG of 19-OCT-2023 16:07, No significant change was found Referred By: Soraida Kent Electronically Signed By:Lincoln Holt
--- NOTE | 2023-11-01 12:29 | ED_ITS ---
HPI - General Adult General Chief complaint: Dyspnea Stated complaint: tachy Time Seen by Provider: 11/01/23 12:19 History of Present Illness HPI narrative: 48 y/o F patient; PMH T2DM, obesity, MONICA, arthritis, fibromyalgia, colon cancer with metastasis to liver; presents from out-patient area here for liver biopsy with report of low oxygen saturation and tachycardia. The patient was noted to have abnormal vitals prior to performance of the examination. Patient last seen in this ED on 10/19/2023 and diagnosed with likely primary colon cancer as well as E. Coli UTI, admitted until 10/24/2023. Discharged to home with further three day course of Cefuroxime which she has completed. Patient states since she has been home she has had a fever on Monday/Monday. She has also had increased lightheadedness, generalized weakness, and fatigue. Associated with minimal PO intake and nausea. Related Data Home Medications ?Medication ?Instructions ?Recorded ?Confirmed bupropion HCl 150 mg 24 hr tablet, 150 mg PO QAM 04/13/23 11/01/23 extended release cetirizine 10 mg tablet 10 mg PO DAILY allergies 04/13/23 11/01/23 cyclobenzaprine 5 mg tablet 5 mg PO BID@0900,1300 PRN Muscle 04/13/23 11/01/23 Spasm fluticasone propionate 50 2 spray intranasal BEDTIME 04/13/23 11/01/23 mcg/actuation nasal spray,suspension montelukast 10 mg tablet 10 mg PO DAILY 04/13/23 11/01/23 pantoprazole 40 mg tablet,delayed 40 mg PO DAILY 04/13/23 11/01/23 release triamcinolone acetonide 0.025 % 1 appl topical BID PRN itch 04/13/23 11/01/23 lotion albuterol sulfate 2.5 mg/3 mL 3 mg inhalation Q4H PRN breathing 10/19/23 11/01/23 (0.083 %) solution for nebulization amitriptyline 50 mg tablet 50 mg PO BEDTIME 10/19/23 11/01/23 atorvastatin 40 mg tablet 40 mg PO DAILY 10/19/23 11/01/23 bupropion HCl 300 mg 24 hr tablet, 300 mg PO QAM 10/19/23 11/01/23 extended release buspirone 10 mg tablet 10 mg PO BID PRN Anxiety 10/19/23 11/01/23 ferrous sulfate 325 mg (65 mg 325 mg PO DAILY 10/19/23 11/01/23 iron) tablet,delayed release gabapentin 600 mg tablet 600 mg PO BEDTIME neuropathic pain 10/19/23 11/01/23 metformin 500 mg tablet,extended 1,000 mg PO BID diabetes mellitus 10/19/23 11/01/23 release 24 hr rizatriptan 10 mg tablet 10 mg PO DAILY MRX1 PRN migraine 10/19/23 11/01/23 Previous Rx's ?Medication ?Instructions ?Recorded albuterol sulfate 90 mcg/actuation 2 inh inhalation Q4-6H PRN 12/26/21 breath activated powder inhaler shortness of breath or wheezing #1 ea cholecalciferol (vitamin D3) 125 125 mcg PO DAILY 90 days #90 caps 05/25/23 mcg (5,000 unit) capsule iron,carbonyl 65 mg-vitamin C 125 1 tab PO DAILY 90 days #90 tabs 05/25/23 mg tablet,delayed release (Vitron-C) Allergies Allergy/AdvReac Type Severity Reaction Status Date / Time No Known Allergies Allergy Verified 11/01/23 11:53 Review of Systems 2 Review of Systems: Yes all other systems are reviewed and are negative Neurologic: Denies Sensory deficit (Neuro) PMFSH Past Medical History Attestation statement: The following information was validated with the patient. Source: old records reviewed Medical History Anemia Non-insulin dependent type 2 diabetes mellitus Migraines Fibromyalgia Mild intermittent asthma HLD (hyperlipidemia) Surgical History Hx of tubal ligation History of Ritchie colposuspension H/O knee surgery Family History Family History Mother Diabetes Father Leukemia Daughter Asthma Son No problems noted. Son No problems noted. Daughter No problems noted. Paternal Grandfather Colon cancer Paternal Aunt Breast cancer Social History Social History Household Members: Children Household Members Other:: 4 Housing: Apartment Do you presently have visiting nurse or other home services: Yes Alcohol intake: current Alcohol intake frequency: does not drink Patient Tobacco Use Status: Never used Tobacco Smoked in Last 30 Days: No Use of substances other than those prescribed or required for medical reasons: No Advance Directives: No Advance Directives Information Provided: Yes Patient : No service: No Current occupational status: unemployed Physical Exam ED Vital Signs: Vital Signs - 24 hr 11/01/23 11:51 11/01/23 14:04 11/01/23 17:26 Temperature 99.6 F 98.5 F 97.8 F Pulse Rate 135 H 128 H 129 H Respiratory Rate 24 H 22 H 18 Blood Pressure 104/57 L 103/49 L 101/53 L Pulse Oximetry 94 95 99 Oxygen Delivery Method Nasal Cannula Room Air Room Air BMI result Body Mass Index 38.3 Patient is tachycardic, with tachypnea, requiring 2L NC for SpO2 94%. Normotensive. Temp 99.6F. Const General: alert and awake Orientation/consciousness: patient oriented x3 HENMT Head: Yes normal to inspection and Yes atraumatic Eyes General: appearance normal, both eyes and all related structures Pupils: Equal, round and reactive pupils present EOM: EOMs intact bilaterally Neck Neck: Yes normal visual inspection and Yes full ROM Chest Chest palpation & inspection: normal inspection of the chest and normal palpation of entire chest wall Resp Effort & Inspection: normal respiratory effort, able to speak in complete sentences, no cough and no use of accessory muscles Auscultation: clear to auscultation bilaterally Cardio Rate: tachycardic Rhythm: regular rhythm Peripheral pulses: Peripheral pulses 2+ throughout GI Palpation (GI): Soft to palpation, nontender, no guarding, not rigid and Other GI palpation findings present (obese) Auscultation: normal bowel sounds Neuro General: patient oriented x3 Cranial nerves: Yes CN's II-XII intact bilaterally and Yes Equal, round and reactive pupils present Motor exam (neuro): 5/5 motor strength present throughout Sensory Exam: No Sensory deficit (Neuro) Course Course Course Narrative: Patient presents from out-patient procedure for liver biopsy with noted tachycardia, hypoxia, and temp 99.6F. Concern for possible infectious etiology in immunocompromised individual with metastatic malignancy. Will obtain CT Head (given dizziness and generalized weakness) as well as CTA Chest (given tachycardia, hypoxia, known metastatic malignancy). Had CTA Chest on 10/21/2023 with suboptimal opacification of the pulmonary arterial tree. Appropriate to repeat at this time given patient's oxygen requirement. Providing 1L IVF. Reevaluation(s) Reevaluation #1: Laboratory studies reviewed. Leukocytosis 18.9. Hgb 7.7 (known anemia). LA 3.1. AST and alk phos elevated. UA negative. Unclear source of infection - reported fever, hypoxic, tachycardia with lactic acidosis and leukocytosis. Recent IV antibiotics - will start Cefepime (as patient has recently been treated with IV Ceftriaxone) and plan for admission to hospitalist. Reevaluation #2: CTA with poor contrast timing - nondiagnostic for pulmonary embolism. CT Head unremarkable for acute abnormalities. Plan: Admit to hospitalist for hypoxia requiring 2L NC, tachycardia, leukocytosis, and lactic acidosis Condition: Stable Medications Administered Discontinued Medications Generic Name Dose Route Start Last Admin Trade Name Freq PRN Reason Stop Dose Admin Sodium Chloride 1,000 mls @ 999 mls/hr 11/01/23 12:30 11/01/23 14:52 Ns IV 11/01/23 13:30 Infused .Q1H1M ROXIE Infusion Cefepime HCl 1 gm/ Sodium 50 mls @ 100 mls/hr 11/01/23 13:40 11/01/23 14:52 Chloride IV 11/01/23 14:09 Infused ONCE ONE Infusion Iohexol 65 ml 11/01/23 15:20 11/01/23 15:20 Iohexol 350 Mg/Ml 100 Ml Infus..Btl IV 11/01/23 15:21 65 ml ONCE ONE Administration Medical Decision Making Lab Data 11/01/23 13:09 11/01/23 13:09 Labs: Lab Results 11/01/23 11/01/23 11/01/23 Range/Units 10:44 13:09 13:15 WBC 18.9 H (4.8-10.8) X10*3/uL RBC 3.68 L (4.20-5.50) X10*6/uL Hgb 7.7 L (12.0-16.0) g/dl Hct 25.5 L (37.0-47.0) % MCV 69.3 L (80.0-98.0) fL MCH 20.9 L (27.0-33.0) pg MCHC 30.2 L (31.0-35.0) g/dl RDW 25.6 H (11.0-16.0) % Plt Count 752 H (160-400) X10*3/uL MPV 8.3 L (9.4-12.3) fL Immature Gran % (Auto) 0.9 H (0.0-0.4) % Neut % (Auto) 80.4 H (45-73) % Lymph % (Auto) 11.6 L (20-40) % [place] % (Auto) 6.8 (2-11) % Eos % (Auto) 0.1 (0-4) % Baso % (Auto) 0.2 (0-2) % Lymph # (Auto) 2.2 (1.2-4.9) X10*3/uL [place] # (Auto) 1.3 H (0.1-1.2) X10*3/uL Eos # (Auto) 0.0 (0.0-0.4) X10*3/uL Baso # (Auto) 0.0 (0.0-0.2) X10*3/uL Abs Immat Gran (auto) 0.17 H (0.00-0.03) X10*3/uL Absolute Neuts (auto) 15.2 H (2.0-8.3) x10*3/uL Absolute Nucleated RBC 0.000 (0.0-0.012) X10*3/uL Nucleated RBC % (auto) 0.0 (0.0-0.2) /100WBC PT 17.9 H (11.1-13.3) SEC INR 1.5 H (0.9-1.1) D-Dimer High Sensitivty 3400 NG/ML VBG pH 7.49 H (7.32-7.43) VBG pCO2 33 mmHg VBG pO2 60 mmHg VBG HCO3 25 (22-26) mmol/L VBG O2 Saturation 88.0 % VBG Base Excess 3.1 mmol/L Sodium 134 L (135-145) mmol/L Potassium 3.2 L (3.3-5.1) mmol/L Chloride 97 (96-108) mmol/L Carbon Dioxide 23 (22-29) mmol/L Anion Gap 17 (12-20) BUN 9 (9-16) mg/dL Creatinine 0.66 (0.5-1.4) mg/dL Estim Creat Clear Calc 118.7 Estimated GFR > 60 Random Glucose 112 (60-115) mg/dL Lactic Acid 3.1 H* (0.5-2.0) mmol/L Lactic Acid F/U @ 2Hr (0.5-2.0) mmol/L Lactic Acid F/U @ 4Hr (0.5-2.0) mmol/L Calcium 8.4 D (8.4-10.2) mg/dL Total Bilirubin 0.9 (0.0-1.0) mg/dL AST 76 H (5-31) U/L ALT 25 (0-31) U/L Alkaline Phosphatase 348 H (39-117) U/L Total Protein 7.7 (6.5-8.0) g/dL Albumin 2.8 L (3.5-5.0) g/dL Lipase 10 (8-78) U/L Beta HCG, Quant < 2 mIU/mL Urine Color Urine Appearance Urine pH (5.0-9.0) Ur Specific [place] (1.005-1.025) Urine Protein (Neg-Trace) mg/dL Urine Glucose (UA) (Negative) mg/dL Urine Ketones (Negative) mg/dL Urine Blood (Negative) Urine Nitrite (Negative) Ur Leukocyte Esterase (Negative) Urine RBC (0-2) /HPF Urine WBC (0-5) /HPF Ur Squamous Epith Cells (0-2) /HPF Urine Bacteria (None Seen) Hyaline Casts (0-2) /LPF Influenza Type A (PCR) NEGATIVE (Negative) Influenza Type B (PCR) NEGATIVE (Negative) RSV RNA Qual (PCR) NEGATIVE (Negative) SARS-CoV-2 RNA (RT-PCR) NEGATIVE (Negative) Blood Type A Positive Antibody Screen POSITIVE Antibody Identification Negative 11/01/23 11/01/23 Range/Units 15:22 17:41 WBC (4.8-10.8) X10*3/uL RBC (4.20-5.50) X10*6/uL Hgb (12.0-16.0) g/dl Hct (37.0-47.0) % MCV (80.0-98.0) fL MCH (27.0-33.0) pg MCHC (31.0-35.0) g/dl RDW (11.0-16.0) % Plt Count (160-400) X10*3/uL MPV (9.4-12.3) fL Immature Gran % (Auto) (0.0-0.4) % Neut % (Auto) (45-73) % Lymph % (Auto) (20-40) % [place]barger % (Auto) (2-11) % Eos % (Auto) (0-4) % Baso % (Auto) (0-2) % Lymph # (Auto) (1.2-4.9) X10*3/uL [place] # (Auto) (0.1-1.2) X10*3/uL Eos # (Auto) (0.0-0.4) X10*3/uL Baso # (Auto) (0.0-0.2) X10*3/uL Abs Immat Gran (auto) (0.00-0.03) X10*3/uL Absolute Neuts (auto) (2.0-8.3) x10*3/uL Absolute Nucleated RBC (0.0-0.012) X10*3/uL Nucleated RBC % (auto) (0.0-0.2) /100WBC PT (11.1-13.3) SEC INR (0.9-1.1) D-Dimer High Sensitivty NG/ML VBG pH (7.32-7.43) VBG pCO2 mmHg VBG pO2 mmHg VBG HCO3 (22-26) mmol/L VBG O2 Saturation % VBG Base Excess mmol/L Sodium (135-145) mmol/L Potassium (3.3-5.1) mmol/L Chloride (96-108) mmol/L Carbon Dioxide (22-29) mmol/L Anion Gap (12-20) BUN (9-16) mg/dL Creatinine (0.5-1.4) mg/dL Estim Creat Clear Calc Estimated GFR Random Glucose (60-115) mg/dL Lactic Acid (0.5-2.0) mmol/L Lactic Acid F/U @ 2Hr 2.5 H* (0.5-2.0) mmol/L Lactic Acid F/U @ 4Hr 2.1 H* (0.5-2.0) mmol/L Calcium (8.4-10.2) mg/dL Total Bilirubin (0.0-1.0) mg/dL AST (5-31) U/L ALT (0-31) U/L Alkaline Phosphatase (39-117) U/L Total Protein (6.5-8.0) g/dL Albumin (3.5-5.0) g/dL Lipase (8-78) U/L Beta HCG, Quant mIU/mL Urine Color Dark Yellow Urine Appearance Cloudy Urine pH 5.5 (5.0-9.0) Ur Specific [place] 1.015 (1.005-1.025) Urine Protein 30 (1+) H (Neg-Trace) mg/dL Urine Glucose (UA) Negative (Negative) mg/dL Urine Ketones Negative (Negative) mg/dL Urine Blood Negative (Negative) Urine Nitrite Negative (Negative) Ur Leukocyte Esterase Trace H (Negative) Urine RBC 0-2 (0-2) /HPF Urine WBC 0-5 (0-5) /HPF Ur Squamous Epith Cells >20 (0-2) /HPF Urine Bacteria 3+ (None Seen) Hyaline Casts >20 (0-2) /LPF Influenza Type A (PCR) (Negative) Influenza Type B (PCR) (Negative) RSV RNA Qual (PCR) (Negative) SARS-CoV-2 RNA (RT-PCR) (Negative) Blood Type Antibody Screen Antibody Identification Radiology Impression Discussion of test interpretation with radiology: I have reviewed the radiologist's reading. Radiologist Impression: EXAMINATION: CT ANGIOGRAM OF THE CHEST WITH AND WITHOUT CONTRAST (CT PULMONARY ANGIOGRAM FOR PE) CLINICAL INFORMATION: Reason for Exam metastatic disease with tachycardia and hypoxia COMPARISON: CT pulmonary angiogram on 10/21/2023 TECHNIQUE: Prior to contrast administration, noncontrast localization images were obtained. Subsequently, multidetector volumetric imaging was performed from the thoracic inlet to below the diaphragms following the administration of 65 mL Omnipaque 350 intravenous contrast. No contrast reaction reported Sagittal, coronal, and MIP oblique sagittal reformatted images were obtained on the CT workstation, uploaded to PACS, and reviewed. This CT examination was performed using dose optimization techniques as appropriate, variously including the following: *Automated exposure control *Adjustment of mA and/or kV according to patient size (this includes techniques or standardized protocols for targeted exams where dose is matched to indication/reason for exam; i.e. extremities or head) *Use of iterative reconstruction technique DLP: 1011.29 mGy-cm FINDINGS: PULMONARY ARTERIES: The main pulmonary arteries, lobar and segmental arterial branches show very poor enhancement without filling defects. Main pulmonary trunk measures 84 Hounsfield units in mean attenuation. LUNGS: Oblique platelike atelectasis is seen along the lateral border of right lower lobe. PLEURA: No pleural effusion or pneumothorax is seen. PERICARDIUM: No pericardial effusion is seen. MEDIASTINUM AND HENNY: No abnormally enlarged mediastinal or hilar lymph nodes are seen. TRACHEOBRONCHIAL TREE: Trachea and bilateral mainstem bronchi are patent. THORACIC AORTA: The thoracic aorta is normal in size and smoothly patent. CORONARY ARTERY CALCIFICATIONS: None CHEST WALL AND LOWER NECK: The subcutaneous and muscular chest wall are intact with no focal lesion. No abnormal mass lesion could be seen in the visualized lower neck. BONES: No fracture or dislocation. No focal bone lesion diagnostic of metastatic disease could be seen in the thorax. VISUALIZED UPPER ABDOMEN: Extensive poorly demarcated hypoenhancing metastatic liver tumors are present. There is borderline splenomegaly, measuring 13.[address] length[address] CT/CT angio chest PE protocol IMPRESSION: 1. Even worse contrast filling of the pulmonary arteries than on previous suboptimal examination, rendering the current CT angiogram nondiagnostic for pulmonary embolism. 2. Persistent oblique platelike atelectasis along the lateral border of right lower lobe. 3. Unchanged, No thoracic aortic aneurysm or dissection is seen. 4. Persistent extensive hepatic metastatic tumor infiltration. Fleischner guidelines were followed. VTE: indeterminate EXAMINATION: CT HEAD WITHOUT CONTRAST CLINICAL INFORMATION: Metastases. COMPARISON: None available. TECHNIQUE: Contiguous axial imaging was performed from the skull base to vertex without intravenous administration of contrast. This CT examination was performed using dose optimization techniques as appropriate, variously including the following: *Automated exposure control. *Adjustment of mA and/or kV according to patient size (this includes techniques or standardized protocols for targeted exams where dose is matched to indication/reason for exam; i.e. extremities or head). *Use of iterative reconstruction technique. DLP: 1011 mGy-cm FINDINGS: Chronic lacunar infarct within the left cerebellar hemisphere with associated volume loss. No additional loss of tinajero-white matter differentiation. No evidence of acute intracranial hemorrhage. No additional parenchymal attenuation abnormalities. The ventricles are normal in morphology and size. No evidence for obstructive hydrocephalus. No abnormal mass effect or midline shift. No extra-axial fluid collections. No acute soft tissue or osseous abnormalities. Mild mucosal thickening of the paranasal sinuses. The mastoid air cells and middle ear cavities are clear. CT/CT head/brain wo IV con IMPRESSION: 1. No evidence of acute intracranial hemorrhage or edematous territorial infarction. 2. Chronic lacunar infarct of the left cerebellar hemisphere. 3. No demonstrated abnormal mass effect on the noncontrast evaluation. Discharge Plan Discharge Clinical Impression: Hypoxia, Leukocytosis, Acidosis, lactic, Tachycardia, Colon cancer Patient Disposition: Admitted As Inpatient
[2023-11-01] MEDS: 0.9 % Sodium Chloride 1,000 ML 999 ML IV (12:33)
--- NOTE | 2023-11-01 12:35 | PC.NURSE ---
20gIV placed in the right hand by short stay - access patent/intact. IVF administered per provider order.
[2023-11-01 13:17] LABS: MANUAL DIFF FLAG NO
[2023-11-01 13:18] LABS: Basophils Percent Auto 0.2 % (0-2); Eosinophils Percent Auto 0.1 % (0-4); Hematocrit 25.5 % (37.0-47.0); Hemoglobin 7.7 g/dl (12.0-16.0); Imm Gran Abs Auto 0.17 X10*3/uL (0.00-0.03); Imm Gran Pct Auto 0.9 % (0.0-0.4); Lymphocytes Absolute Auto 2.2 X10*3/uL (1.2-4.9); Lymphocytes Percent Auto 11.6 % (20-40); Mean Corpuscular HGB Conc 30.2 g/dl (31.0-35.0); Mean Corpuscular Hemoglobin 20.9 pg (27.0-33.0); Mean Corpuscular Volume 69.3 fL (80.0-98.0); Mean Platelet Volume 8.3 fL (9.4-12.3); Monocytes Absolute Auto 1.3 X10*3/uL (0.1-1.2); Monocytes Percent Auto 6.8 % (2-11); Neutrophils Absolute Auto 15.2 x10*3/uL (2.0-8.3); Neutrophils Percent Auto 80.4 % (45-73); Platelet Count 752 X10*3/uL (160-400); Red Blood Count 3.68 X10*6/uL (4.20-5.50); Red Cell Distribution Width 25.6 % (11.0-16.0); White Blood Count 18.9 X10*3/uL (4.8-10.8)
[2023-11-01 13:20] LABS: Venous Blood Gas Refer to POC result
[2023-11-01 13:20] LABS: VBG Base Excess 3.1 mmol/L; VBG HCO3 25 mmol/L (22-26); VBG pCO2 33 mmHg; VBG pH 7.49 (7.32-7.43); VBG pO2 60 mmHg
[2023-11-01 13:30] LABS: INTERNATIONAL NORM RATIO 1.5 (0.9-1.1); Prothrombin Time 17.9 SEC (11.1-13.3)
[2023-11-01 13:32] LABS: D Dimer High Sensitivity 3400 NG/ML
[2023-11-01 13:38] LABS: Alanine Aminotransferase 25 U/L (0-31); Albumin Level 2.8 g/dL (3.5-5.0); Alkaline Phosphatase 348 U/L (39-117); Anion Gap 17 (12-20); Aspartate Amino Transferase 76 U/L (5-31); Bilirubin Total 0.9 mg/dL (0.0-1.0); Blood Urea Nitrogen 9 mg/dL (9-16); Calcium 8.4 mg/dL (8.4-10.2); Carbon Dioxide 23 mmol/L (22-29); Chloride 97 mmol/L (96-108); Creatinine Clr Calc Pharmacy 118.7; Estimated Glomerular Filt Rate > 60; Glucose Random 112 mg/dL (60-115); Lactic Acid 3.1 mmol/L (0.5-2.0); Potassium 3.2 mmol/L (3.3-5.1); Sodium 134 mmol/L (135-145); Total Protein 7.7 g/dL (6.5-8.0)
--- NOTE | 2023-11-01 13:41 | PC.NURSE ---
labs obtained/sent to lab. ekg performed by tech. pt waiting for results of chest xray at this time. no sob/wob noted. respirations even and unlabored. plan of care ongoing at this time.
[2023-11-01 13:44] LABS: Lipase 10 U/L (8-78)
[2023-11-01 13:53] LABS: HCG Quantitative < 2 mIU/mL
[2023-11-01 13:57] LABS: Influenza A PCR NEGATIVE (Negative); Influenza B PCR NEGATIVE (Negative); Resp Syncy Virus RNA Qual PCR NEGATIVE (Negative); SARS COV2 PCR INHOUSE NEGATIVE (Negative)
[2023-11-01 14:04] VITALS: BP 103/49; PULSE 128; RESP 22; TEMP 36.9; O2SAT 95
--- NOTE | 2023-11-01 14:04 | PC.NURSE ---
pt moved from 6H to 7 at this time so continuous cardiac monitoring can be displayed. pt sinus tachy on the lithopone charger - HR between 125-135bpm. pt hypotensive. otherwise vss and up to date. 95% on RA - no difficulty while conversating. pt able to speak in full/clear sentences w/o difficulty. no sob/wob noted. respirations even and unlabored. IVF continues to infuse at this time. pt family member bedside for support. plan of care ongoing. call bernard placed within reach.
[2023-11-01] MEDS: cefEPime HCl 1 GM in 0.9 % Sodium Chloride 50 ML IV (14:22)
--- NOTE | 2023-11-01 14:23 | PC.NURSE ---
abx administered per provider order.
[2023-11-01 15:15] LABS: Reflex Lactate? Lactic Acid Added
[2023-11-01] MEDS: iohexoL 350 MG/ML 100 ML INFUS..BTL 65 ML IV (15:20)
--- NOTE | 2023-11-01 15:25 | PC.NURSE ---
pt returned from CT at this time. repeat lactic/urine obtained and sent to lab. plan of care ongoing. family bedside. call bernard placed within reach.
[2023-11-01 15:35] LABS: Appearance Urine Cloudy; Color Urine Dark Yellow; Glucose Urine UA Negative (Negative); Leukocyte Esterase Urine Trace (Negative); Nitrite Urine Negative (Negative); PH 5.5 (5.0-9.0); Specific Gravity - Urine 1.015 (1.005-1.025); UMIC TRIGGER UACC YES; Urine Blood Negative (Negative); Urine Ketones Negative (Negative); Urine Protein 30 (1+) mg/dL (Neg-Trace)
[2023-11-01 15:46] LABS: Bacteria Urine 3+ (None Seen); Hyaline Casts Urine >20 /LPF (0-2); Squamous Epithelial Cell Urine >20 /HPF (0-2); WBC Urine 0-5 /HPF (0-5)
[2023-11-01 15:47] LABS: RBC Urine 0-2 /HPF (0-2)
[2023-11-01 15:53] LABS: ~Lactic Acid-LAB USE ONLY 2.5 mmol/L (0.5-2.0)
[2023-11-01 17:26] VITALS: BP 101/53; PULSE 129; RESP 18; TEMP 36.6; O2SAT 99
--- NOTE | 2023-11-01 17:27 | PC.NURSE ---
pt remains hypotensive/sinus tachy on the wardrobe specialist. pt denies pain. pt resting comfortably in no apparent distress. no sob/wob noted. respirations even and unlabored. pt requesting food since she has been NPO since 1999 last night. at this time - CTA results are still pending - pt educated on importance of not consuming PO intake until results are finalized. pt ok w/ p0lan of car eat this time. family bedside. plan of care ongoing. call bernard placed within reach.
[2023-11-01 17:29] LABS: Reflex Lactate? 2 Y
--- NOTE | 2023-11-01 17:53 | PHA.MEDREC ---
Pharmacy Consult ? Medication Reconciliation Pharmacy has completed the medication reconciliation. Patient just discharged 10/24/23
--- NOTE | 2023-11-01 17:56 | PM.IMHP ---
History of Present Illness Date of Service: 11/01/23 Attending physician on admission: Saran Ware Chief Complaint: Fever, tachycardia Pt is a 48-year-old female with a PMH significant for?mild intermittent asthma, HLD, [id number] diabetes type 2, iron-deficiency anemia, fibromyalgia, and recently diagnosed colon cancer metastasized to liver who presents to the ED from short stay surgery for evaluation of hypoxia and tachycardia. Patient was recently admitted to the hospital on 10/18-10/23 where imaging was concerning for colon cancer metastasized to liver. Patient was treated for acute UTI with sepsis and treated with ceftriaxone while in the hospital and discharged on cefuroxime which was finished on 10/27/2023. Pt presented to [facility] for percutaneous liver biopsy to confirm metastatic colon cancer but patient was noted to have a HR of >140, SBP 115, and O2 sat low 90s on RA. Due to concern for possible PE pt was sent to the ED for further evaluation. Patient reports increased fatigue and weakness especially with walking since discharge. Measured fever at home up to 101.4 yesterday and on Monday. Reports chronic tachycardia that has been ongoing ?for years?. Denies shortness of breath, cough, or any swelling or pain in lower extremities. No nausea, vomiting, abdominal pain. No dysuria or polyuria. No hematochezia, melena. In the ED pt with elevated temperature 99.6 degrees, tachycardia of 135, tachypnea up to 24, and soft BP as low as 103/49. Patient currently satting 9% on RA. Labs were significant for leukocytosis 18.9, H&H 7.7/25.5, sodium 134, potassium 3.2, lactic acid 3.1 with repeat 2.5 and 2.1, AST 76, alk-phos 348, albumin 2.8. UA negative for UTI. Tested negative for flu, RSV, COVID. CXR showed no acute abnormality. CTA of chest nondiagnostic for PE, but showed persistent oblique platelike atelectasis in right lower lobe. CT of head showed no evidence of acute intracranial hemorrhage or edematous territorial infarction, but showed chronic lacunar infarct in left cerebral hemisphere. EKG demonstrated sinus tachycardia of 130 with no evidence of significant ST elevations or depressions. Pt was treated with IVF and cefepime. Pt will be admitted to the hospital for treatment and further evaluation of patient meeting SIRS criteria but with unclear infectious source: Differential includes UTI versus GI infection versus PE versus secondary to malignancy. Review of Systems Review of Systems: Increased fatigue/weakness Fever measured at home Chronic tachycardia Chronic shortness of breath, at baseline Denies SOB, cough No increased LLE Denies nausea, vomiting, diarrhea, abdominal pain Denies chest pain/pressure, palpitations [facility] Medical History Anemia Non-insulin dependent type 2 diabetes mellitus Migraines Fibromyalgia Mild intermittent asthma HLD (hyperlipidemia) Family History Mother Diabetes Father Leukemia Daughter Asthma Son No problems noted. Son No problems noted. Daughter No problems noted. Paternal Grandfather Colon cancer Paternal Aunt Breast cancer Surgical History Hx of tubal ligation History of Ritchie colposuspension H/O knee surgery Social History Household Members: Children Household Members Other:: 4 Housing: Apartment Do you presently have visiting nurse or other home services: Yes Alcohol intake: current Alcohol intake frequency: does not drink Patient Tobacco Use Status: Never used Tobacco service: No Current occupational status: unemployed Meds Allergies Allergy/AdvReac Type Severity Reaction Status Date / Time No Known Allergies Allergy Verified 11/01/23 11:53 Home Medications ?Medication ?Instructions ?Recorded ?Confirmed ?Last Taken ?Type bupropion HCl 150 mg 24 hr tablet, 150 mg PO QAM 04/13/23 11/01/23 10/18/23 History extended release cetirizine 10 mg tablet 10 mg PO DAILY allergies 04/13/23 11/01/23 10/18/23 History cyclobenzaprine 5 mg tablet 5 mg PO BID@0900,1300 PRN Muscle 04/13/23 11/01/23 10/18/23 History Spasm fluticasone propionate 50 2 spray intranasal BEDTIME 04/13/23 11/01/23 10/18/23 History mcg/actuation nasal spray,suspension montelukast 10 mg tablet 10 mg PO DAILY 04/13/23 11/01/23 10/18/23 History pantoprazole 40 mg tablet,delayed 40 mg PO DAILY 04/13/23 11/01/23 10/18/23 History release triamcinolone acetonide 0.025 % 1 appl topical BID PRN itch 04/13/23 11/01/23 Unknown History lotion albuterol sulfate 2.5 mg/3 mL 3 mg inhalation Q4H PRN breathing 10/19/23 11/01/23 Unknown History (0.083 %) solution for nebulization amitriptyline 50 mg tablet 50 mg PO BEDTIME 10/19/23 11/01/23 10/18/23 History atorvastatin 40 mg tablet 40 mg PO DAILY 10/19/23 11/01/23 10/18/23 History bupropion HCl 300 mg 24 hr tablet, 300 mg PO QAM 10/19/23 11/01/23 10/18/23 History extended release buspirone 10 mg tablet 10 mg PO BID PRN Anxiety 10/19/23 11/01/23 10/18/23 History ferrous sulfate 325 mg (65 mg 325 mg PO DAILY 10/19/23 11/01/23 10/18/23 History iron) tablet,delayed release gabapentin 600 mg tablet 600 mg PO BEDTIME neuropathic pain 10/19/23 11/01/23 10/18/23 History metformin 500 mg tablet,extended 1,000 mg PO BID diabetes mellitus 10/19/23 11/01/23 10/18/23 History release 24 hr rizatriptan 10 mg tablet 10 mg PO DAILY MRX1 PRN migraine 10/19/23 11/01/23 10/18/23 History Physical Exam Vital Signs and Narrative: Vital Signs: Last Vital Signs Temp 97.8 F 11/01/23 17:26 Pulse 129 H 11/01/23 17:26 Resp 18 11/01/23 17:26 BP 101/53 L 11/01/23 17:26 Pulse Ox 99 11/01/23 17:26 O2 Del Method Room Air 11/01/23 17:26 Oxygen Flow Rate 2 11/01/23 11:51 BMI result Body Mass Index 38.3 Constitutional: Alert, in no acute distress. Mental Status: Oriented to person, place and time. Eyes: Pupils are equal, round, and reactive to light. Ear, Nose, and Throat: Oropharynx clear, mucous membranes moist. Ears and nose without deformities. Trachea midline. Respiratory: Clear to auscultation bilaterally. No wheezing, rales, or rhonchi. Cardiovascular: S1, S2, tachy. No murmurs, rubs, or gallops. Gastrointestinal: Abdomen soft, non-tender, non-distended. Normal bowel sounds. Neurologic: Cranial nerves II-XII are grossly intact bilaterally. No focal neurological deficits. Moves all extremities spontaneously. Skin: Warm, dry. Extremities: No edema. Psychiatric: Normal mood and affect. Results Labs 11/01/23 13:09 11/01/23 13:09 Labs: Laboratory Results - last 24 hr 11/01/23 11/01/23 11/01/23 10:44 13:09 13:15 MCV 69.3 L MCH 20.9 L MCHC 30.2 L RDW 25.6 H Plt Count 752 H MPV 8.3 L Immature Gran % (Auto) 0.9 H Neut % (Auto) 80.4 H Lymph % (Auto) 11.6 L [place] % (Auto) 6.8 Eos % (Auto) 0.1 Baso % (Auto) 0.2 Lymph # (Auto) 2.2 [place] # (Auto) 1.3 H Eos # (Auto) 0.0 Baso # (Auto) 0.0 Abs Immat Gran (auto) 0.17 H Absolute Neuts (auto) 15.2 H Absolute Nucleated RBC 0.000 Nucleated RBC % (auto) 0.0 PT 17.9 H INR 1.5 H D-Dimer High Sensitivty 3400 VBG pH 7.49 H VBG pCO2 33 VBG pO2 60 VBG HCO3 25 VBG O2 Saturation 88.0 VBG Base Excess 3.1 Anion Gap 17 Estim Creat Clear Calc 118.7 Estimated GFR > 60 Random Glucose 112 Lactic Acid 3.1 H* Lactic Acid F/U @ 2Hr Calcium 8.4 D Total Bilirubin 0.9 AST 76 H ALT 25 Alkaline Phosphatase 348 H Total Protein 7.7 Albumin 2.8 L Lipase 10 Beta HCG, Quant < 2 Urine Color Urine Appearance Urine pH Ur Specific [place] Urine Protein Urine Glucose (UA) Urine Ketones Urine Blood Urine Nitrite Ur Leukocyte Esterase Urine RBC Urine WBC Ur Squamous Epith Cells Urine Bacteria Hyaline Casts Influenza Type A (PCR) NEGATIVE Influenza Type B (PCR) NEGATIVE RSV RNA Qual (PCR) NEGATIVE SARS-CoV-2 RNA (RT-PCR) NEGATIVE Blood Type A Positive Antibody Screen POSITIVE Antibody Identification Negative 11/01/23 15:22 MCV MCH MCHC RDW Plt Count MPV Immature Gran % (Auto) Neut % (Auto) Lymph % (Auto) [place] % (Auto) Eos % (Auto) Baso % (Auto) Lymph # (Auto) [place] # (Auto) Eos # (Auto) Baso # (Auto) Abs Immat Gran (auto) Absolute Neuts (auto) Absolute Nucleated RBC Nucleated RBC % (auto) PT INR D-Dimer High Sensitivty VBG pH VBG pCO2 VBG pO2 VBG HCO3 VBG O2 Saturation VBG Base Excess Anion Gap Estim Creat Clear Calc Estimated GFR Random Glucose Lactic Acid Lactic Acid F/U @ 2Hr 2.5 H* Calcium Total Bilirubin AST ALT Alkaline Phosphatase Total Protein Albumin Lipase Beta HCG, Quant Urine Color Dark Yellow Urine Appearance Cloudy Urine pH 5.5 Ur Specific [place] 1.015 Urine Protein 30 (1+) H Urine Glucose (UA) Negative Urine Ketones Negative Urine Blood Negative Urine Nitrite Negative Ur Leukocyte Esterase Trace H Urine RBC 0-2 Urine WBC 0-5 Ur Squamous Epith Cells >20 Urine Bacteria 3+ Hyaline Casts >20 Influenza Type A (PCR) Influenza Type B (PCR) RSV RNA Qual (PCR) SARS-CoV-2 RNA (RT-PCR) Blood Type Antibody Screen Antibody Identification Imaging Radiologist's Impressions: Impressions Chest X-Ray 11/01/23 12:30 IMPRESSION: No acute abnormality. Chest CTA 11/01/23 15:33 IMPRESSION: 1. Even worse contrast filling of the pulmonary arteries than on previous suboptimal examination, rendering the current CT angiogram nondiagnostic for pulmonary embolism. 2. Persistent oblique platelike atelectasis along the lateral border of right lower lobe. 3. Unchanged, No thoracic aortic aneurysm or dissection is seen. 4. Persistent extensive hepatic metastatic tumor infiltration. Fleischner guidelines were followed. VTE: indeterminate Assessment and Plan (1) Leukocytosis: Status: Acute Plan Pt is a 48-year-old female with a PMH significant for?mild intermittent asthma, HLD, [id number] diabetes type 2, iron-deficiency anemia, fibromyalgia, and recently diagnosed colon cancer metastasized to liver who presents to the ED with?from outpatient clinic for evaluation of hypoxia and tachycardia. Pt will be admitted to the hospital for treatment and further evaluation of patient meeting SIRS criteria but with unclear infectious source: Differential includes UTI versus GI infection versus PE versus secondary to malignancy. SIRS Pt with tachycardia, tachypnea, leukocytosis; lactic acid 3.1 with repeat 2.5 and 2.1 Unclear etiology: Differential includes UTI, GI infection, PE, or secondary to malignancy Pt received IVF and started on broad-spectrum antibiotics in the ED Will treat with ceftriaxone, started 11/01/2023 Follow cultures Question of PE Patient with tachypnea, satting in low 90s on RA in SSS CTA nondiagnostic for pulmonary embolism Will check V/Q scan, ultrasound of bilateral lower extremities Lactic acidosis Likely secondary to metformin use Patient received IVF and started broad-spectrum antibiotics in the ED Treat as above Colonic and liver masses Suspicious for malignancy with metastisis Liver biopsy postponed earlier today Oncology consult Microcytic anemia H&H 7.7/25.5 with MCV 69.3 Likely secondary to suspicion for malignancy Pt required transfusion on last admission Continue iron supplementation Follow CBC, transfuse as necessary Mild intermittent asthma Not in acute exacerbation Continue home inhalers HLD Continue statin Fibromyalgia Continue amitriptyline, gabapentin Bxp-umzubxv-farmikchu diabetes type 2 Hold metformin SSI, diabetic diet GERD PPI Migraines Rizatriptan Full Code Attending:?Dr. Ware DVT Prophylaxis: Pneumatic boots due to anemia close to transfusion threshold Quality Stroke Does the patient have a stroke diagnosis?: No VTE Prior VTE?: No VTE Risk Level:: Medical - moderate - high VTE Device Contraindication: N/A - Device Ordered VTE Drug Contraindication: Treatment Not Indicated
[2023-11-01 18:02] LABS: ~Lactic Acid-LAB USE ONLY 2.1 mmol/L (0.5-2.0)
[2023-11-01 19:11] LABS: Cancel Lactic Acid Canceled
[2023-11-01 19:34] VITALS: BP 104/68; PULSE 130; RESP 20; TEMP 36.8; O2SAT 98
--- NOTE | 2023-11-01 19:35 | MHC.EDTECH ---
This tech took over care of patient at 1900,hourly rounds and vitals completed,HR is elevated at 130,RN made aware. Patient ambulated to bathroom with a steady gait. Call bernard in reach
[2023-11-01] MEDS: buPROPion HCl XL 300 MG TAB.ER.24H PO (20:02)
[2023-11-01] MEDS: Gabapentin 600 MG TABLET PO (20:02)
[2023-11-01] MEDS: buPROPion HCl XL 150 MG TAB.ER.24H PO (20:02)
--- NOTE | 2023-11-01 20:12 | MHC.EDTECH ---
Belongings list completed and copy placed in chart, family brought fast food in for patient,patient is sitting up eating, patient's HR is elevated at 145 RN made aware
--- NOTE | 2023-11-01 20:27 | PC.NURSE ---
PT tachycardic, hanging at 145 for the last 15 minutes however completely asymptomatic. ANIL Acosta made aware. NO further orders @ this time.
[2023-11-01] MEDS: cefTRIAXone sodium 1 GM in 0.9 % Sodium Chloride 50 ML IV (21:09)
--- NOTE | 2023-11-01 21:17 | MHC.EDTECH ---
POC taken and is 127,RN is aware,hourly rounds and vitals completed,patient's HR is 138 RN aware.
[2023-11-01 21:18] VITALS: BP 120/63; PULSE 138; RESP 18; TEMP 36.7; O2SAT 98
[2023-11-01 21:20] LABS: Glucose, Whole Blood 127 mg/dL (60-115)
[2023-11-01] MEDS: Amitriptyline HCl 50 MG TABLET PO (21:43)
[2023-11-01] MEDS: Fluticasone Propionate Nasal 16 GM SPRAY 2 SPRAY NOSTRIL-B (21:43)
[2023-11-01 23:25] VITALS: BP 126/63; PULSE 147; RESP 30; TEMP 38.1; O2SAT 93
--- NOTE | 2023-11-01 23:28 | MHC.EDTECH ---
Hourly rounds and vitals completed,HR is 147,oral temp 100.5,resp.30 RN is aware.
[2023-11-01] MEDS: Potassium Chloride Packet 20 MEQ PACKET PO (23:35)
[2023-11-02] VITALS (12 sets, daily range): BP systolic 92–116; BP diastolic 46–84; PULSE 103–142; RESP 16–24; TEMP 36.3–38.1; O2SAT 93–98; BMI 38.3
[2023-11-02] MEDS: Acetaminophen 1,000 MG/100 ML PIGGYBACK 400 MG IV (01:27)
[2023-11-02] MEDS: Albumin Human 25 % 100 ML IV ×2 (01:51→03:07)
[2023-11-02] MEDS: 0.9 % Sodium Chloride Flush 3 ML SYRINGE IVFLUSH ×2 (01:54→21:05)
--- NOTE | 2023-11-02 02:15 | MHC.EDTECH ---
Hourly rounds and vitals completed,HR 132,BP 98/46,oral temp 100.6 RN is aware. Patient is resting comfortably call bernard in reach
--- NOTE | 2023-11-02 03:18 | PC.NURSE ---
Assumed care of pt at 2200. Updated on pts 2315 vitals. IV acetaminophen and Albumin ordered;administered but delayed d/t care of other emergent pt. Pt assisted OOB to use the bathroom independently. Pt denies any pain, in bed resting, Call bernard within reach and pt verbalized understanding of use.
--- NOTE | 2023-11-02 04:03 | MHC.EDTECH ---
Hourly rounds and vitals completed,patient is resting at this time,call bernard in reach
[2023-11-02 05:12] LABS: Hematocrit 21.9 % (37.0-47.0); Mean Corpuscular HGB Conc 30.1 g/dl (31.0-35.0); Mean Corpuscular Volume 69.7 fL (80.0-98.0); Mean Platelet Volume 8.4 fL (9.4-12.3); Platelet Count 630 X10*3/uL (160-400); Red Blood Count 3.14 X10*6/uL (4.20-5.50); Red Cell Distribution Width 25.3 % (11.0-16.0); White Blood Count 15.9 X10*3/uL (4.8-10.8)
[2023-11-02 05:20] LABS: Hemoglobin 6.6 g/dl (12.0-16.0)
[2023-11-02 05:22] LABS: Anion Gap 16 (12-20); Blood Urea Nitrogen 11 mg/dL (9-16); Calcium 8.4 mg/dL (8.4-10.2); Carbon Dioxide 22 mmol/L (22-29); Chloride 101 mmol/L (96-108); Creatinine Clr Calc Pharmacy 111.9; Estimated Glomerular Filt Rate > 60; Glucose Random 98 mg/dL (60-115); Potassium 3.3 mmol/L (3.3-5.1); Sodium 136 mmol/L (135-145)
--- NOTE | 2023-11-02 06:18 | MHC.EDTECH ---
Patient ambulated to bathroom,hourly rounds and vitals completed,call bernard in reach
[2023-11-02] MEDS: Ferrous Sulfate 324 MG TABLET.DR PO (07:24)
[2023-11-02] MEDS: Atorvastatin Calcium 40 MG TABLET PO (07:24)
[2023-11-02] MEDS: Loratadine 10 MG TABLET PO (07:24)
[2023-11-02] MEDS: buPROPion HCl XL 300 MG TAB.ER.24H PO (07:24)
[2023-11-02] MEDS: Omeprazole 20 MG CAPSULE.DR PO (07:24)
[2023-11-02] MEDS: Montelukast Sodium 10 MG TABLET PO (07:24)
[2023-11-02] MEDS: buPROPion HCl XL 150 MG TAB.ER.24H PO (07:24)
[2023-11-02 07:34] LABS: Glucose, Whole Blood 113 mg/dL (60-115)
--- NOTE | 2023-11-02 07:45 | PC.NURSE ---
patient resting quietly in bed, respirations equal and unlabored, skin dry and intact. patient VSS, medicated per SEP, .
--- NOTE | 2023-11-02 08:35 | MHC.CM.PN ---
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 Home/resume said services is the goal and CM has initiated and will follow for dc planning. Patient required no DME [employer] and her PCP/PA is Regina Barr.
--- NOTE | 2023-11-02 10:51 | P.PNIM_ITS ---
Subjective Subjective Date of Service: 11/02/23 Interval History: no sob, no further fevers Physical Exam 2 Vital Signs: Vital Signs: Last Vital Signs Temp 97.9 F 11/02/23 10:24 Pulse 112 H 11/02/23 10:24 Resp 20 11/02/23 10:24 BP 106/57 L 11/02/23 10:24 Pulse Ox 95 11/02/23 09:21 O2 Del Method Room Air 11/02/23 09:21 Oxygen Flow Rate 2 11/01/23 11:51 BMI result Body Mass Index 38.3 General: AO X 3, no acute distress Resp: CTA bilateral, no accessory muscles used CVS: S1,S2,RRR GI: soft, non tender, non distended Neuro: motor grossly intact, alert Psych: appropriate affect, appropriate insight Objective Data Active Medications Acetaminophen (Acetaminophen 325 Mg Tablet) 650 mg PO Q6H PRN PRN Reason: Pain, Mild (Pain Scale 1-3) Albuterol Sulfate (Albuterol Sulfate (0.083%) 2.5 Mg/3 Ml Vial.Neb) 3 mg INHALE Q4H PRN PRN Reason: breathing Albuterol Sulfate (Albuterol Sulfate 90 Mcg 8 Gm Inhaler) 2 puff INHALE Q4H PRN PRN Reason: shortness of breath or wheezing Amitriptyline HCl (Amitriptyline Hcl 50 Mg Tablet) 50 mg PO BEDTIME [facility] Last Admin: 11/01/23 21:43 Dose: 50 mg Documented By: SHAKIRA Atorvastatin Calcium (Atorvastatin Calcium 40 Mg Tablet) 40 mg PO DAILY [facility] Last Admin: 11/02/23 07:24 Dose: 40 mg Documented By: RELL Benzonatate (Benzonatate 100 Mg Capsule) 100 mg PO TID PRN PRN Reason: Cough Bupropion HCl (Bupropion Hcl Xl 150 Mg Tab.Er.24h) 150 mg PO DAILY@0900 [facility] Last Admin: 11/02/23 07:24 Dose: 150 mg Documented By: RELL Bupropion HCl (Bupropion Hcl Xl 300 Mg Tab.Er.24h) 300 mg PO DAILY@0900 [facility] Last Admin: 11/02/23 07:24 Dose: 300 mg Documented By: RELL Buspirone HCl (Buspirone Hcl 10 Mg Tablet) 10 mg PO BID PRN PRN Reason: Anxiety Cyclobenzaprine HCl (Cyclobenzaprine Hcl 5 Mg Tablet) 5 mg PO BID@0900,1300 PRN PRN Reason: Muscle Spasm Docusate Sodium (Docusate Sodium 100 Mg Capsule) 100 mg PO DAILY PRN PRN Reason: Constipation Ferrous Sulfate (Ferrous Sulfate 324 Mg Tablet.) 324 mg PO DAILY [facility] Last Admin: 11/02/23 07:24 Dose: 324 mg Documented By: RELL Fluticasone Propionate (Fluticasone Propionate Nasal 16 Gm [place]) 2 spray NOSTRIL-B BEDTIME [facility] Last Admin: 11/01/23 21:43 Dose: 2 spray Documented By: SHAKIRA Gabapentin (Gabapentin 600 Mg Tablet) 600 mg PO BEDTIME [facility] Last Admin: 11/01/23 20:02 Dose: 600 mg Documented By: BENYINJ Glucose (Glucose Gel 15 Gm Gel..Gram.) 15 gm PO Q15M PRN; Protocol PRN Reason: per Hypoglycemia Standing Ord. Ceftriaxone Sodium 1 gm/ (Sodium Chloride) 50 mls @ 100 mls/hr IV Q24H [facility] Last Infusion: 11/01/23 21:42 Dose: Infused Documented By: SHAKIRA Dextrose (D10) 250 mls @ 750 mls/hr IV Q15M PRN; Protocol PRN Reason: per Hypoglycemia Standing Ord. Insulin Human Lispro (Insulin Lispro 100 Unit/Ml 3 Ml Vial) 0 unit SUBCUT QIDACHS [facility]; Protocol Last Admin: 11/02/23 08:06 Dose: Not Given Documented By: RELL Non-Admin Reason: No Insulin Coverage Loratadine (Loratadine 10 Mg Tablet) 10 mg PO DAILY [facility] Last Admin: 11/02/23 07:24 Dose: 10 mg Documented By: RELL Melatonin (Melatonin 3 Mg Tablet) 6 mg PO BEDTIME PRN PRN Reason: Insomnia Montelukast Sodium (Montelukast Sodium 10 Mg Tablet) 10 mg PO DAILY [facility] Last Admin: 11/02/23 07:24 Dose: 10 mg Documented By: RELL Non-Formulary Medication (Rizatriptan) 10 mg PO DAILY MRX1 PRN PRN Reason: migraine Omeprazole (Omeprazole 20 Mg Capsule.) 20 mg PO DAILY@0630 [facility] Last Admin: 11/02/23 07:24 Dose: 20 mg Documented By: RELL Ondansetron HCl (Ondansetron Hcl 4 Mg/2 Ml Vial) 4 mg IVPUSH Q8H PRN PRN Reason: Nausea and Vomiting Sodium Chloride (0.9 % Sodium Chloride Flush 3 Ml Syringe) 3 ml IVFLUSH QSHIFT [facility] Last Admin: 11/02/23 08:06 Dose: Not Given Documented By: RELL Non-Admin Reason: See Note Labs 11/02/23 04:33 11/02/23 04:33 Labs: Laboratory Results - last 24 hr 11/01/23 11/01/23 11/01/23 10:44 13:09 13:15 MCV 69.3 L MCH 20.9 L MCHC 30.2 L RDW 25.6 H Plt Count 752 H MPV 8.3 L Immature Gran % (Auto) 0.9 H Neut % (Auto) 80.4 H Lymph % (Auto) 11.6 L [place] % (Auto) 6.8 Eos % (Auto) 0.1 Baso % (Auto) 0.2 Lymph # (Auto) 2.2 [place] # (Auto) 1.3 H Eos # (Auto) 0.0 Baso # (Auto) 0.0 Abs Immat Gran (auto) 0.17 H Absolute Neuts (auto) 15.2 H Absolute Nucleated RBC 0.000 Nucleated RBC % (auto) 0.0 PT 17.9 H INR 1.5 H D-Dimer High Sensitivty 3400 VBG pH 7.49 H VBG pCO2 33 VBG pO2 60 VBG HCO3 25 VBG O2 Saturation 88.0 VBG Base Excess 3.1 Anion Gap 17 Estim Creat Clear Calc 118.7 Estimated GFR > 60 POC Glucose Random Glucose 112 Lactic Acid 3.1 H* Lactic Acid F/U @ 2Hr Lactic Acid F/U @ 4Hr Calcium 8.4 D Total Bilirubin 0.9 AST 76 H ALT 25 Alkaline Phosphatase 348 H Total Protein 7.7 Albumin 2.8 L Lipase 10 Beta HCG, Quant < 2 Urine Color Urine Appearance Urine pH Ur Specific [place] Urine Protein Urine Glucose (UA) Urine Ketones Urine Blood Urine Nitrite Ur Leukocyte Esterase Urine RBC Urine WBC Ur Squamous Epith Cells Urine Bacteria Hyaline Casts Influenza Type A (PCR) NEGATIVE Influenza Type B (PCR) NEGATIVE RSV RNA Qual (PCR) NEGATIVE SARS-CoV-2 RNA (RT-PCR) NEGATIVE Blood Type A Positive Antibody Screen POSITIVE Antibody Identification Negative Crossmatch (AHG) See Detail 11/01/23 11/01/23 11/01/23 15:22 17:41 21:16 MCV MCH MCHC RDW Plt Count MPV Immature Gran % (Auto) Neut % (Auto) Lymph % (Auto) [place] % (Auto) Eos % (Auto) Baso % (Auto) Lymph # (Auto) [place] # (Auto) Eos # (Auto) Baso # (Auto) Abs Immat Gran (auto) Absolute Neuts (auto) Absolute Nucleated RBC Nucleated RBC % (auto) PT INR D-Dimer High Sensitivty VBG pH VBG pCO2 VBG pO2 VBG HCO3 VBG O2 Saturation VBG Base Excess Anion Gap Estim Creat Clear Calc Estimated GFR POC Glucose 127 H Random Glucose Lactic Acid Lactic Acid F/U @ 2Hr 2.5 H* Lactic Acid F/U @ 4Hr 2.1 H* Calcium Total Bilirubin AST ALT Alkaline Phosphatase Total Protein Albumin Lipase Beta HCG, Quant Urine Color Dark Yellow Urine Appearance Cloudy Urine pH 5.5 Ur Specific [place] 1.015 Urine Protein 30 (1+) H Urine Glucose (UA) Negative Urine Ketones Negative Urine Blood Negative Urine Nitrite Negative Ur Leukocyte Esterase Trace H Urine RBC 0-2 Urine WBC 0-5 Ur Squamous Epith Cells >20 Urine Bacteria 3+ Hyaline Casts >20 Influenza Type A (PCR) Influenza Type B (PCR) RSV RNA Qual (PCR) SARS-CoV-2 RNA (RT-PCR) Blood Type Antibody Screen Antibody Identification Crossmatch (AHG) 11/02/23 11/02/23 04:33 07:30 MCV 69.7 L MCH 21.0 L MCHC 30.1 L RDW 25.3 H Plt Count 630 H MPV 8.4 L Immature Gran % (Auto) Neut % (Auto) Lymph % (Auto) [place] % (Auto) Eos % (Auto) Baso % (Auto) Lymph # (Auto) [place] # (Auto) Eos # (Auto) Baso # (Auto) Abs Immat Gran (auto) Absolute Neuts (auto) Absolute Nucleated RBC 0.000 Nucleated RBC % (auto) 0.0 PT INR D-Dimer High Sensitivty VBG pH VBG pCO2 VBG pO2 VBG HCO3 VBG O2 Saturation VBG Base Excess Anion Gap 16 Estim Creat Clear Calc 111.9 Estimated GFR > 60 POC Glucose 113 Random Glucose 98 Lactic Acid Lactic Acid F/U @ 2Hr Lactic Acid F/U @ 4Hr Calcium 8.4 Total Bilirubin AST ALT Alkaline Phosphatase Total Protein Albumin Lipase Beta HCG, Quant Urine Color Urine Appearance Urine pH Ur Specific [place] Urine Protein Urine Glucose (UA) Urine Ketones Urine Blood Urine Nitrite Ur Leukocyte Esterase Urine RBC Urine WBC Ur Squamous Epith Cells Urine Bacteria Hyaline Casts Influenza Type A (PCR) Influenza Type B (PCR) RSV RNA Qual (PCR) SARS-CoV-2 RNA (RT-PCR) Blood Type Antibody Screen Antibody Identification Crossmatch (AHG) Assessment and Plan (1) Colon cancer: Status: Acute Plan 48F PMH colon ca with liver meds, mild intermitnt asthma, hld, dm, presented with SIRS sirs Differential includes sepsis due to possible UTI, GI infection - continue empiric ceftriaxone, follow-up cultures Versus VTE - lower extremity duplex negative, CTA poor study, follow-up V/Q scan Versus tumor fever - Tylenol, monitor colon ca with liver mts plan for biopsy, oncology eval anemia of inlfammation and chronic blood loss/ iron deficiency acute on chronic transfuse 1 unit prb, monitor mild intermittent asthma stable dm insulin hld statin gerd ppi dvt prophylaxis - [facility], due to chronic blood loss anemia full code reason for continued hospitalization:trasnfusing Quality Stroke Does the patient have a stroke diagnosis?: No VTE Prior VTE?: No VTE Risk Level:: Medical - moderate - high VTE Device Contraindication: N/A - Device Ordered VTE Drug Contraindication: Treatment Not Indicated
[2023-11-02 11:24] LABS: Glucose, Whole Blood 105 mg/dL (60-115)
[2023-11-02] MEDS: Potassium Chloride ER 20 MEQ TAB.ER.PRT 40 MEQ PO (12:56)
[2023-11-02 16:30] LABS: Glucose, Whole Blood 116 mg/dL (60-115)
--- NOTE | 2023-11-02 17:23 | P.CNHO_ITS ---
Subjective - Subjective Chief complaint: Consult for: Colon cancer with liver metastases. Patient: known to practice within the last 3 years Consult date: 11/02/23 Requesting Physician: Akua Primary Care Provider: ANIL Vega Family Provider: Momo. Medical Summary: DIAGNOSIS: Colon carcinoma with liver metastases. HPI - Consult Narrative Reason for consult: Consult for: Colon carcinoma with liver metastases. Narrative: Crista Sanchez is a 48 year old lady with recently diagnosed colon cancer metastasized to liver. She presented to the ED from short stay surgery for evaluation of hypoxia and tachycardia. Patient was recently admitted to the hospital on 10/18-10/23 where imaging was concerning for colon cancer metastasized to liver. Colonoscopy confirmed colon cancer: At least intramucosal. She was treated for acute UTI with sepsis and treated with ceftriaxone while in the hospital and discharged on cefuroxime which was finished on 10/27/2023. She had presented to [facility] for percutaneous liver biopsy to confirm metastatic colon cancer. However she was noted to have a HR of >140, SBP 115, and O2 sat low 90s on RA. Patient reported increased fatigue and weakness especially with walking since discharge. Had a fever at home up to 101.4 yesterday and on Monday. Has had chronic tachycardia that has been ongoing ?for years?. Due to concern for possible PE pt was sent to the ER for further evaluation. Denies shortness of breath, cough, or any swelling or pain in lower extremities. No nausea, vomiting, abdominal pain. No dysuria or polyuria. No hematochezia, melena. In the ED pt with elevated temperature 99.6 degrees, tachycardia of 135, tachypnea up to 24, and soft BP as low as 103/49. Pt satting 9% on RA. Labs were significant for leukocytosis 18.9, H&H 7.7/25.5. Sodium 134, potassium 3.2, lactic acid 3.1 with repeat 2.5 and 2.1, AST 76, alk- phos 348, albumin 2.8. UA negative for UTI. Tested negative for flu, RSV, COVID. CXR showed no acute abnormality. CTA of chest nondiagnostic for PE, but showed persistent oblique platelike atelectasis in right lower lobe. CT of head showed no evidence of acute intracranial hemorrhage or edematous territorial infarction, but showed chronic lacunar infarct in left cerebral hemisphere. EKG demonstrated sinus tachycardia of 130 with no evidence of significant ST elevations or depressions. Pt was treated with IVF and cefepime. She was admitted for treatment and further evaluation. She was meeting SIRS criteria but with unclear infectious source: Differential: UTI versus GI infection versus PE versus secondary to malignancy. Review of Systems 2 Review of Systems: Increased fatigue/weakness Fever measured at home Chronic tachycardia Chronic shortness of breath, at baseline Denies SOB, cough No increased LLE Denies nausea, vomiting, diarrhea, abdominal pain Denies chest pain/pressure, palpitations [facility] Medical History: PMH significant for?mild intermittent asthma, HLD, [id number] diabetes type 2, iron-deficiency anemia, fibromyalgia. Anemia Non-insulin dependent type 2 diabetes mellitus Migraines Fibromyalgia Mild intermittent asthma HLD (hyperlipidemia) Family History: Mother Diabetes Father Leukemia Daughter Asthma Son No problems noted. Review of Systems - Constitutional Reports system reviewed and no additional complaints, except as documented, Reports anorexia, Reports body ache(s), Reports fever(s), Reports headache(s), Reports lack of energy, Reports malaise, Reports weakness, Reports weight loss - Eyes Reports system reviewed and no additional complaints, except as documented - ENT Reports system reviewed and no additional complaints, except as documented - Cardiovascular Reports system reviewed and no additional complaints, except as documented - Respiratory Reports no additional respiratory complaints - Gastrointestinal Reports system reviewed and no additional complaints, except as documented - Genitourinary Reports no additional female genitourinary complaints - Musculoskeletal Reports system reviewed and no additional complaints, except as documented - Integumentary/Breasts Skin/Breast: Reports no additional skin complaints - Neurologic Denies sensory deficit - Psychiatric Reports system reviewed and no additional complaints, except as documented - Endocrine Reports no additional endocrine complaints - Hematologic/Lymphatic Reports system reviewed and no additional complaints, except as documented - Allergic/Immunologic Reports system reviewed and no additional complaints, except as documented Oncology Screenings - ECOG Performance Status ECOG Performance Status: 2 [facility] Medical History: Medical History (Last Reviewed 11/02/23 @ 09:12 by Toña Moffett RN) Anemia Fibromyalgia HLD (hyperlipidemia) Migraines Mild intermittent asthma Non-insulin dependent type 2 diabetes mellitus Functional capacity: wheelchair bound Patient : No Family History: Family History (Last Reviewed 11/01/23 @ 19:13 by ANIL Painter) Mother Diabetes Father Leukemia Daughter Asthma Son No problems noted. Son No problems noted. Daughter No problems noted. Paternal Grandfather Colon cancer Paternal Aunt Breast cancer Surgical History: Surgical History (Last Reviewed 11/02/23 @ 09:12 by Toña Moffett RN) H/O knee surgery History of Ritchie colposuspension Hx of tubal ligation Social History: Social History (Last Reviewed 11/01/23 @ 19:13 by ANIL Painter) Living Situation History: Household Members: Family Household Members: Children Household Members Other:: 4 Housing: Apartment Do you presently have visiting nurse or other home services: Yes Tobacco History: Patient Tobacco Use Status: Never used Tobacco Occupation Assessmet: service: No Current occupational status: unemployed Home Medications and Allergies Current Medications: Current Medications Acetaminophen (Acetaminophen 325 Mg Tablet) 650 mg PO Q6H PRN PRN Reason: Pain, Mild (Pain Scale 1-3) Albuterol Sulfate (Albuterol Sulfate (0.083%) 2.5 Mg/3 Ml Vial.Neb) 3 mg INHALE Q4H PRN PRN Reason: breathing Albuterol Sulfate (Albuterol Sulfate 90 Mcg 8 Gm Inhaler) 2 puff INHALE Q4H PRN PRN Reason: shortness of breath or wheezing Amitriptyline HCl (Amitriptyline Hcl 50 Mg Tablet) 50 mg PO BEDTIME [facility] Last Admin: 11/01/23 21:43 Dose: 50 mg Atorvastatin Calcium (Atorvastatin Calcium 40 Mg Tablet) 40 mg PO DAILY [facility] Last Admin: 11/02/23 07:24 Dose: 40 mg Benzonatate (Benzonatate 100 Mg Capsule) 100 mg PO TID PRN PRN Reason: Cough Bupropion HCl (Bupropion Hcl Xl 150 Mg Tab.Er.24h) 150 mg PO DAILY@0900 [facility] Last Admin: 11/02/23 07:24 Dose: 150 mg Bupropion HCl (Bupropion Hcl Xl 300 Mg Tab.Er.24h) 300 mg PO DAILY@0900 [facility] Last Admin: 11/02/23 07:24 Dose: 300 mg Buspirone HCl (Buspirone Hcl 10 Mg Tablet) 10 mg PO BID PRN PRN Reason: Anxiety Cyclobenzaprine HCl (Cyclobenzaprine Hcl 5 Mg Tablet) 5 mg PO BID@0900,1300 PRN PRN Reason: Muscle Spasm Docusate Sodium (Docusate Sodium 100 Mg Capsule) 100 mg PO DAILY PRN PRN Reason: Constipation Ferrous Sulfate (Ferrous Sulfate 324 Mg Tablet.) 324 mg PO DAILY [facility] Last Admin: 11/02/23 07:24 Dose: 324 mg Fluticasone Propionate (Fluticasone Propionate Nasal 16 Gm [place]) 2 spray NOSTRIL-B BEDTIME [facility] Last Admin: 11/01/23 21:43 Dose: 2 spray Gabapentin (Gabapentin 600 Mg Tablet) 600 mg PO BEDTIME [facility] Last Admin: 11/01/23 20:02 Dose: 600 mg Glucose (Glucose Gel 15 Gm Gel..Gram.) 15 gm PO Q15M PRN; Protocol PRN Reason: per Hypoglycemia Standing Ord. Ceftriaxone Sodium 1 gm/ (Sodium Chloride) 50 mls @ 100 mls/hr IV Q24H [facility] Last Infusion: 11/01/23 21:42 Dose: Infused Dextrose (D10) 250 mls @ 750 mls/hr IV Q15M PRN; Protocol PRN Reason: per Hypoglycemia Standing Ord. Insulin Human Lispro (Insulin Lispro 100 Unit/Ml 3 Ml Vial) 0 unit SUBCUT QIDACHS [facility]; Protocol Last Admin: 11/02/23 16:36 Dose: Not Given Loratadine (Loratadine 10 Mg Tablet) 10 mg PO DAILY [facility] Last Admin: 11/02/23 07:24 Dose: 10 mg Melatonin (Melatonin 3 Mg Tablet) 6 mg PO BEDTIME PRN PRN Reason: Insomnia Montelukast Sodium (Montelukast Sodium 10 Mg Tablet) 10 mg PO DAILY [facility] Last Admin: 11/02/23 07:24 Dose: 10 mg Non-Formulary Medication (Rizatriptan) 10 mg PO DAILY MRX1 PRN PRN Reason: migraine Omeprazole (Omeprazole 20 Mg Capsule.) 20 mg PO DAILY@0630 [facility] Last Admin: 11/02/23 07:24 Dose: 20 mg Ondansetron HCl (Ondansetron Hcl 4 Mg/2 Ml Vial) 4 mg IVPUSH Q8H PRN PRN Reason: Nausea and Vomiting Sodium Chloride (0.9 % Sodium Chloride Flush 3 Ml Syringe) 3 ml IVFLUSH QSHIFT [facility] Last Admin: 11/02/23 08:06 Dose: Not Given Home Medications ?Medication ?Instructions ?Recorded ?Confirmed ?Type bupropion HCl 150 mg 24 hr tablet, 150 mg PO QAM 04/13/23 11/01/23 History extended release cetirizine 10 mg tablet 10 mg PO DAILY allergies 04/13/23 11/01/23 History cyclobenzaprine 5 mg tablet 5 mg PO BID@0900,1300 PRN Muscle 04/13/23 11/01/23 History Spasm fluticasone propionate 50 2 spray intranasal BEDTIME 04/13/23 11/01/23 History mcg/actuation nasal spray,suspension montelukast 10 mg tablet 10 mg PO DAILY 04/13/23 11/01/23 History pantoprazole 40 mg tablet,delayed 40 mg PO DAILY 04/13/23 11/01/23 History release triamcinolone acetonide 0.025 % 1 appl topical BID PRN itch 04/13/23 11/01/23 History lotion albuterol sulfate 2.5 mg/3 mL 3 mg inhalation Q4H PRN breathing 10/19/23 11/01/23 History (0.083 %) solution for nebulization amitriptyline 50 mg tablet 50 mg PO BEDTIME 10/19/23 11/01/23 History atorvastatin 40 mg tablet 40 mg PO DAILY 10/19/23 11/01/23 History bupropion HCl 300 mg 24 hr tablet, 300 mg PO QAM 10/19/23 11/01/23 History extended release buspirone 10 mg tablet 10 mg PO BID PRN Anxiety 10/19/23 11/01/23 History ferrous sulfate 325 mg (65 mg 325 mg PO DAILY 10/19/23 11/01/23 History iron) tablet,delayed release gabapentin 600 mg tablet 600 mg PO BEDTIME neuropathic pain 10/19/23 11/01/23 History metformin 500 mg tablet,extended 1,000 mg PO BID diabetes mellitus 10/19/23 11/01/23 History release 24 hr rizatriptan 10 mg tablet 10 mg PO DAILY MRX1 PRN migraine 10/19/23 11/01/23 History Allergies Allergy/AdvReac Type Severity Reaction Status Date / Time No Known Allergies Allergy Verified 11/01/23 11:53 Physical Exam Vital signs: Vital Signs Temp 98.9 F 11/02/23 15:45 Pulse 126 H 11/02/23 15:45 Resp 20 11/02/23 15:45 BP 102/79 11/02/23 15:45 Pulse Ox 93 11/02/23 15:45 O2 Del Method Room Air 11/02/23 15:45 Intake & Output 11/01/23 11/02/23 11/02/23 18:59 06:59 18:59 Intake Total 1050 / 1300 250 / 1300 1150 / 1150 Balance 1050 / 1300 250 / 1300 1150 / 1150 Intake: Intake, Oral Amount 600 / 600 Intake (Blood Product) Amount 350 / 350 Red Blood Cells (E0336) Unit 350 / 350 [id number] Intake, IV Amount 1050 / 1300 250 / 1300 200 / 200 0.9 % Sodium Chloride 1,000 ml 1000 / 1000 @ 999 mls/hr IV .Q1H1M [facility] Rx#: [id number] 0.9 % Sodium Chloride 100 ml @ 100 / 100 100 mls/hr IV ONCE ONE Rx#: [id number] Acetaminophen 1,000 mg In 100 100 / 100 ml @ 400 mls/hr IV ONCE ONE Rx# :[id number] Albumin Human 25 % 100 ml @ 100 100 / 100 100 / 100 mls/hr IV Q1H [facility] Rx#: [id number] cefEPime HCl 1 gm In 0.9 % 50 / 50 Sodium Chloride 50 ml @ 100 mls /hr IV ONCE ONE Rx#:[id number] cefTRIAXone sodium 1 gm In 0.9 50 / 50 % Sodium Chloride 50 ml @ 100 mls/hr IV Q24H [facility] Rx#: [id number] Other: Lunch % Eaten 100% Number of Unmeasured Voids 1 1 Last Bowel Movement 11/01/23 Weight 97.976 kg 97.98 kg Weight in Grams 05804 Weight 97.98 kg - Constitutional Present: moderate distress - Routine HEENT Exam Head: Present: normal inspection, normocephalic Eye: Present: normal appearance ENT: Present: mucous membranes moist - Routine Neck Exam Present: supple - Routine Respiratory Exam Present: decreased breath sounds - Routine Cardiovascular Exam Cardiovascular: Present: RRR, S1, S2 - Routine Abdominal Exam Present: tenderness - Routine Extremities Exam Present: nontender Hem/Onc Consult Result - Labs CBC & Chem 7: 11/04/23 05:12 11/04/23 05:12 Labs: Short CBC 11/02/23 Range/Units 04:33 WBC 15.9 H (4.8-10.8) X10*3/uL Hgb 6.6 L* (12.0-16.0) g/dl Hct 21.9 L (37.0-47.0) % Plt Count 630 H (160-400) X10*3/uL [facility] 11/02/23 04:33 Sodium 136 Potassium 3.3 Chloride 101 Carbon Dioxide 22 BUN 11 Creatinine 0.70 Calcium 8.4 Assessment and Plan Patient Active problem list reviewed?: Yes (1) Colon cancer metastasized to liver Status: Acute Assessment and plan: 48-year-old lady presents with?generalized weakness, anorexia, and lightheadedness and dizziness x2 weeks. Noted to have a leukocytosis and significant anemia. CBC from 10/18 revealed: WBC 19.8, HGB 7.7, HCT 25.3, MCV 65.4, PLT 838. Iron studies: 26/174/15/356. CEA level:3134. CAT scan of the abdomen pelvis from 09/20 revealed: Hepatomegaly with multi lobulated infiltrating mass/nodules throughout the left hepatic lobe and caudate lobe. Primary versus metastatic lesion. There is diffuse mural thickening involving a short segment of sigmoid colon suspicious for a primary sigmoid lesion. Recommend colonoscopy. There is abnormal 1.7 cm right internal iliac lymph node on axial slice 75/3. She was admitted for further evaluation of microcytic anemia likely secondary to sigmoid colon and liver lesions concerning for malignancy. She had a colonoscopy, on which revealed: 10/23/23 Colonoscopy revealed: Sigmoid Colon: A polypoidal, ulcerated circumferential mass at 20 cms with luminal narrowing and partial obstruction. Pediatric colonoscope could not be advanced through the mass. A mid-size upper endoscope was used to traverse the mass into the distal transverse colon. Mass extended from 20 to 25 cms. Multiple biopsies were obtained and uli ink was injected at the proximal marginof the mass. Pathology revealed: Intramucosal adenocarcinoma. She was seen on 10/30 in the office. I shared the above results with her and her daughter. Unfortunately, molecular testing could not be completed on colonoscopies specimen. CEA level: 2463. My plan was to proceed with biopsy of one of the liver lesions by Interventional Radiology. This was scheduled for 10/31. Unfortunately the patient had a fever and tachycardia with hypoxia. Concern is SIRS. She had to be transferred to the ED and admitted to the hospital for further evaluation. She is currently receiving IV hydration and antibiotics, cover for possible urosepsis. PLAN: Will wait for her to defervesce. Will then arrange for the biopsy of the liver lesions. She needs to have the molecular testing to decide about further treatment, and choice of chemo/immunotherapy. l will make further plans based upon the biopsy results. She would be a candidate for systemic chemotherapy, FOLFOX plus bevacizumab. She has been scheduled for a Port-A-Cath to facilitate the chemotherapy, on 11/12. Thank you for this consult, I will follow along with you, CC: Momo. - Time Spent With Patient Time Spent with Patient (in minutes): 30
[2023-11-02] MEDS: Benzonatate 100 MG CAPSULE PO (18:06)
[2023-11-02] MEDS: levalbuterol HCL 1.25 MG/3 ML VIAL.NEB INHALE (19:53)
[2023-11-02 20:07] LABS: Glucose, Whole Blood 98 mg/dL (60-115)
[2023-11-02] MEDS: cefTRIAXone sodium 1 GM in 0.9 % Sodium Chloride 50 ML IV (20:59)
[2023-11-02] MEDS: Gabapentin 600 MG TABLET PO (21:00)
[2023-11-02] MEDS: Amitriptyline HCl 50 MG TABLET PO (21:00)
[2023-11-02] MEDS: Cyclobenzaprine HCl 5 MG TABLET PO (21:04)
[2023-11-02] MEDS: Acetaminophen 325 MG TABLET 650 MG PO (22:20)
[2023-11-03 03:44] VITALS: BP 104/58; PULSE 116; RESP 21; TEMP 36.3; O2SAT 98
[2023-11-03 07:31] LABS: Anion Gap 15 (12-20); Blood Urea Nitrogen 8 mg/dL (9-16); Calcium 8.7 mg/dL (8.4-10.2); Carbon Dioxide 24 mmol/L (22-29); Chloride 102 mmol/L (96-108); Creatinine Clr Calc Pharmacy 137.4; Estimated Glomerular Filt Rate > 60; Glucose Fasting 81 mg/dL (60-99); Glucose Random 81 mg/dL (60-115); Magnesium 2.5 mg/dL (1.6-2.6); Potassium 3.9 mmol/L (3.3-5.1); Sodium 137 mmol/L (135-145)
[2023-11-03 07:36] LABS: Hematocrit 23.4 % (37.0-47.0); Hemoglobin 7.2 g/dl (12.0-16.0); Mean Corpuscular HGB Conc 30.8 g/dl (31.0-35.0); Mean Corpuscular Hemoglobin 22.2 pg (27.0-33.0); Mean Corpuscular Volume 72.2 fL (80.0-98.0); Mean Platelet Volume 9.2 fL (9.4-12.3); Platelet Count 611 X10*3/uL (160-400); Red Blood Count 3.24 X10*6/uL (4.20-5.50); Red Cell Distribution Width 26.3 % (11.0-16.0); White Blood Count 14.4 X10*3/uL (4.8-10.8)
[2023-11-03 07:53] VITALS: BP 110/66; PULSE 111; RESP 20; TEMP 36.2; O2SAT 90
[2023-11-03 08:09] LABS: Glucose, Whole Blood 81 mg/dL (60-115)
--- NOTE | 2023-11-03 08:54 | HO.PM.IMPN ---
Subjective Subjective Date of Service: 11/03/23 Interval History: ruq abd pain, no further fevers, no sob Physical Exam Vital Signs: Vital Signs: Last Vital Signs Temp 97.2 F 11/03/23 07:53 Pulse 111 H 11/03/23 07:53 Resp 20 11/03/23 07:53 BP 110/66 11/03/23 07:53 Pulse Ox 90 L 11/03/23 07:53 O2 Del Method Room Air 11/03/23 07:53 Oxygen Flow Rate 2 11/01/23 11:51 BMI result Body Mass Index 38.3 General: AO X 3, no acute distress Resp: CTA bilateral, no accessory muscles used CVS: S1,S2,RRR GI: soft, non tender, non distended Neuro: motor grossly intact, alert Psych: appropriate affect, appropriate insight Objective Data Active Medications Acetaminophen (Acetaminophen 325 Mg Tablet) 650 mg PO Q6H PRN PRN Reason: Pain, Mild (Pain Scale 1-3) Last Admin: 11/02/23 22:20 Dose: 650 mg Documented By: RYLEE Albuterol Sulfate (Albuterol Sulfate (0.083%) 2.5 Mg/3 Ml Vial.Neb) 3 mg INHALE Q4H PRN PRN Reason: breathing Albuterol Sulfate (Albuterol Sulfate 90 Mcg 8 Gm Inhaler) 2 puff INHALE Q4H PRN PRN Reason: shortness of breath or wheezing Amitriptyline HCl (Amitriptyline Hcl 50 Mg Tablet) 50 mg PO BEDTIME [facility] Last Admin: 11/02/23 21:00 Dose: 50 mg Documented By: RYLEE Atorvastatin Calcium (Atorvastatin Calcium 40 Mg Tablet) 40 mg PO DAILY [facility] Last Admin: 11/02/23 07:24 Dose: 40 mg Documented By: RELL Benzonatate (Benzonatate 100 Mg Capsule) 100 mg PO TID PRN PRN Reason: Cough Last Admin: 11/02/23 18:06 Dose: 100 mg Documented By: MORGAN Bupropion HCl (Bupropion Hcl Xl 150 Mg Tab.Er.24h) 150 mg PO DAILY@0900 [facility] Last Admin: 11/02/23 07:24 Dose: 150 mg Documented By: RELL Bupropion HCl (Bupropion Hcl Xl 300 Mg Tab.Er.24h) 300 mg PO DAILY@0900 [facility] Last Admin: 11/02/23 07:24 Dose: 300 mg Documented By: RELL Buspirone HCl (Buspirone Hcl 10 Mg Tablet) 10 mg PO BID PRN PRN Reason: Anxiety Cyclobenzaprine HCl (Cyclobenzaprine Hcl 5 Mg Tablet) 5 mg PO BID@0900,1300 PRN PRN Reason: Muscle Spasm Last Admin: 11/02/23 21:04 Dose: 5 mg Documented By: RYLEE Docusate Sodium (Docusate Sodium 100 Mg Capsule) 100 mg PO DAILY PRN PRN Reason: Constipation Ferrous Sulfate (Ferrous Sulfate 324 Mg Tablet.) 324 mg PO DAILY [facility] Last Admin: 11/02/23 07:24 Dose: 324 mg Documented By: RELL Fluticasone Propionate (Fluticasone Propionate Nasal 16 Gm [place]) 2 spray NOSTRIL-B BEDTIME [facility] Last Admin: 11/02/23 21:00 Dose: Not Given Documented By: RYLEE Non-Admin Reason: Patient Refused Gabapentin (Gabapentin 600 Mg Tablet) 600 mg PO BEDTIME [facility] Last Admin: 11/02/23 21:00 Dose: 600 mg Documented By: RYLEE Glucose (Glucose Gel 15 Gm Gel..Gram.) 15 gm PO Q15M PRN; Protocol PRN Reason: per Hypoglycemia Standing Ord. Ceftriaxone Sodium 1 gm/ (Sodium Chloride) 50 mls @ 100 mls/hr IV Q24H [facility] Last Infusion: 11/02/23 21:29 Dose: Infused Documented By: RYLEE Dextrose (D10) 250 mls @ 750 mls/hr IV Q15M PRN; Protocol PRN Reason: per Hypoglycemia Standing Ord. Insulin Human Lispro (Insulin Lispro 100 Unit/Ml 3 Ml Vial) 0 unit SUBCUT QIDACHS [facility]; Protocol Last Admin: 11/03/23 08:49 Dose: Not Given Documented By: ALIYA Non-Admin Reason: No Insulin Coverage Levalbuterol HCl (Levalbuterol Hcl 1.25 Mg/3 Ml Vial.Neb) 1.25 mg INHALE RQ4H PRN PRN Reason: Wheezing Last Admin: 11/02/23 19:53 Dose: 1.25 mg Documented By: AKVON Loratadine (Loratadine 10 Mg Tablet) 10 mg PO DAILY [facility] Last Admin: 11/02/23 07:24 Dose: 10 mg Documented By: RELL Melatonin (Melatonin 3 Mg Tablet) 6 mg PO BEDTIME PRN PRN Reason: Insomnia Montelukast Sodium (Montelukast Sodium 10 Mg Tablet) 10 mg PO DAILY [facility] Last Admin: 11/02/23 07:24 Dose: 10 mg Documented By: RELL Non-Formulary Medication (Rizatriptan) 10 mg PO DAILY MRX1 PRN PRN Reason: migraine Omeprazole (Omeprazole 20 Mg Capsule.Dr) 20 mg PO DAILY@0630 [facility] Last Admin: 11/03/23 07:34 Dose: Not Given Documented By: RYLEE Non-Admin Reason: Patient Asleep Ondansetron HCl (Ondansetron Hcl 4 Mg/2 Ml Vial) 4 mg IVPUSH Q8H PRN PRN Reason: Nausea and Vomiting Sodium Chloride (0.9 % Sodium Chloride Flush 3 Ml Syringe) 3 ml IVFLUSH QSHIFT [facility] Last Admin: 11/02/23 21:05 Dose: 3 ml Documented By: RYLEE Labs 11/03/23 06:07 11/03/23 06:07 Labs: Laboratory Results - last 24 hr 11/01/23 11/02/23 11/02/23 10:44 11:04 16:03 MCV MCH MCHC RDW Plt Count MPV Absolute Nucleated RBC Nucleated RBC % (auto) Anion Gap Estim Creat Clear Calc Estimated GFR POC Glucose 105 116 H Random Glucose Fasting Glucose Calcium Magnesium Blood Type A Positive Antibody Screen POSITIVE Antibody Identification Negative Crossmatch ([facility]) See Detail 11/02/23 11/03/23 11/03/23 19:59 06:07 07:56 MCV 72.2 L MCH 22.2 L MCHC 30.8 L RDW 26.3 H Plt Count 611 H MPV 9.2 L Absolute Nucleated RBC 0.000 Nucleated RBC % (auto) 0.0 Anion Gap 15 Estim Creat Clear Calc 137.4 Estimated GFR > 60 POC Glucose 98 81 Random Glucose 81 Fasting Glucose 81 Calcium 8.7 Magnesium 2.5 Blood Type Antibody Screen Antibody Identification Crossmatch ([facility]) Microbiology Microbiology Results: Microbiology 11/01/23 13:26 Blood Culture - Preliminary Blood - Venous No growth after 24 hours. 11/01/23 13:09 Blood Culture - Preliminary Blood - Venous No growth after 24 hours. Assessment and Plan (1) Colon cancer: Status: Acute Plan 48F PMH colon ca with liver meds, mild intermitnt asthma, hld, dm, presented with SIRS sirs Differential includes sepsis due to possible UTI, GI infection - with negative cultures will dc ceftriaxone and monitor VTE ruled out - lower extremity duplex negative, CTA poor study, negative V/Q scan Versus tumor fever - Tylenol colon ca with liver mts plan for biopsy, oncology eval anemia of inlfammation and chronic blood loss/ iron deficiency acute on chronic transfused 1 unit prbc 11/02/23, monitor mild intermittent asthma stable dm insulin hld statin gerd ppi dvt prophylaxis - scp, due to chronic blood loss anemia full code reason for continued hospitalization: monitoring off abx Quality Stroke Does the patient have a stroke diagnosis?: No VTE Prior VTE?: No VTE Risk Level:: Medical - moderate - high VTE Device Contraindication: N/A - Device Ordered VTE Drug Contraindication: Treatment Not Indicated
[2023-11-03] MEDS: Montelukast Sodium 10 MG TABLET PO (09:46)
[2023-11-03] MEDS: buPROPion HCl XL 150 MG TAB.ER.24H PO (09:46)
[2023-11-03] MEDS: Atorvastatin Calcium 40 MG TABLET PO (09:46)
[2023-11-03] MEDS: buPROPion HCl XL 300 MG TAB.ER.24H PO (09:46)
[2023-11-03] MEDS: Loratadine 10 MG TABLET PO (09:46)
[2023-11-03] MEDS: Ferrous Sulfate 324 MG TABLET.DR PO (09:46)
[2023-11-03] MEDS: 0.9 % Sodium Chloride Flush 3 ML SYRINGE IVFLUSH ×3 (09:47→20:46)
[2023-11-03] MEDS: Morphine Sulfate 2 MG/ML CARTRIDGE IVPUSH ×2 (09:59→20:35)
--- NOTE | 2023-11-03 10:11 | MHC.CM.PN ---
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
--- NOTE | 2023-11-03 10:16 | MHC.CM.PN ---
Per ROUNDS discussion, goal is a biopsy today; Patient is not yet medically cleared for dc. Home/resume services is the goal; CM will follow.
[2023-11-03 10:59] VITALS: O2SAT 96
[2023-11-03 11:05] VITALS: BP 110/61; PULSE 112; RESP 20; TEMP 36.3; O2SAT 92
[2023-11-03 11:34] LABS: Glucose, Whole Blood 73 mg/dL (60-115)
[2023-11-03] MEDS: Benzonatate 100 MG CAPSULE PO ×2 (14:55→20:45)
[2023-11-03 16:00] VITALS: BP 106/71; PULSE 126; RESP 20; TEMP 36.7; O2SAT 90
[2023-11-03 16:04] LABS: Glucose, Whole Blood 170 mg/dL (60-115)
[2023-11-03] MEDS: Insulin Lispro 100 UNIT/ML 3 ML VIAL SUBCUT (17:18)
[2023-11-03 20:00] VITALS: BP 113/54; PULSE 131; RESP 19; TEMP 36.6; O2SAT 91
[2023-11-03 20:08] LABS: Glucose, Whole Blood 115 mg/dL (60-115)
[2023-11-03] MEDS: Gabapentin 600 MG TABLET PO (20:34)
[2023-11-03] MEDS: Amitriptyline HCl 50 MG TABLET PO (20:34)
[2023-11-03] MEDS: Fluticasone Propionate Nasal 16 GM SPRAY 2 SPRAY NOSTRIL-B (21:53)
[2023-11-03] MEDS: Cyclobenzaprine HCl 5 MG TABLET PO (23:31)
[2023-11-03] MEDS: guaiFENesin 100 MG/5 ML LIQUID PO (23:32)
[2023-11-04] VITALS: BP 99/77; PULSE 128; RESP 16; TEMP 37.1; O2SAT 92
[2023-11-04 04:00] VITALS: BP 121/40; PULSE 123; RESP 17; TEMP 36.7; O2SAT 96
[2023-11-04 05:53] LABS: Hematocrit 26.4 % (37.0-47.0); Hemoglobin 7.9 g/dl (12.0-16.0); Mean Corpuscular HGB Conc 29.9 g/dl (31.0-35.0); Mean Corpuscular Hemoglobin 21.6 pg (27.0-33.0); Mean Corpuscular Volume 72.1 fL (80.0-98.0); Mean Platelet Volume 8.4 fL (9.4-12.3); Platelet Count 620 X10*3/uL (160-400); Red Blood Count 3.66 X10*6/uL (4.20-5.50); Red Cell Distribution Width 26.4 % (11.0-16.0); White Blood Count 13.8 X10*3/uL (4.8-10.8)
[2023-11-04 06:10] LABS: Anion Gap 15 (12-20); Blood Urea Nitrogen 6 mg/dL (9-16); Calcium 8.5 mg/dL (8.4-10.2); Carbon Dioxide 23 mmol/L (22-29); Chloride 102 mmol/L (96-108); Creatinine Clr Calc Pharmacy 147.8; Estimated Glomerular Filt Rate > 60; Glucose Fasting 82 mg/dL (60-99); Potassium 3.9 mmol/L (3.3-5.1); Sodium 136 mmol/L (135-145)
[2023-11-04] MEDS: Omeprazole 20 MG CAPSULE.DR PO (06:24)
[2023-11-04 07:34] VITALS: BP 124/53; PULSE 111; RESP 16; TEMP 36.3; O2SAT 91
[2023-11-04 07:42] LABS: Glucose, Whole Blood 87 mg/dL (60-115)
[2023-11-04] MEDS: Morphine Sulfate 2 MG/ML CARTRIDGE IVPUSH (08:50)
[2023-11-04] MEDS: buPROPion HCl XL 150 MG TAB.ER.24H PO (08:51)
[2023-11-04] MEDS: Cyclobenzaprine HCl 5 MG TABLET PO (08:51)
[2023-11-04] MEDS: Montelukast Sodium 10 MG TABLET PO (08:51)
[2023-11-04] MEDS: buPROPion HCl XL 300 MG TAB.ER.24H PO (08:51)
[2023-11-04] MEDS: guaiFENesin 100 MG/5 ML LIQUID PO (08:51)
[2023-11-04] MEDS: 0.9 % Sodium Chloride Flush 3 ML SYRINGE IVFLUSH (08:51)
[2023-11-04] MEDS: Loratadine 10 MG TABLET PO (08:51)
[2023-11-04] MEDS: Atorvastatin Calcium 40 MG TABLET PO (08:51)
[2023-11-04] MEDS: Ferrous Sulfate 324 MG TABLET.DR PO (08:51)
--- NOTE | 2023-11-04 09:27 | PM.DS ---
DS: Providers Provider Date of Service: 11/04/23 Date of admission: 11/01/23 18:43 Primary care physician: ANIL Vega Consults: 11/01/23 18:58 Consult to Hematology / Oncology Routine Consulting Provider: Jese Rasmussen Reason for consultation: Liver biopsy postponed due to SIRS DS: Diagnosis Discharge Diagnosis (1) Colon cancer: Status: Acute DS: Summary Hospital Course Hospital Course: from initial hpi: 48-year-old female with a PMH significant for?mild intermittent asthma, HLD, [id number] diabetes type 2, iron-deficiency anemia, fibromyalgia, and recently diagnosed colon cancer metastasized to liver who presents to the ED from short stay surgery for evaluation of hypoxia and tachycardia. Patient was recently admitted to the hospital on 10/18-10/23 where imaging was concerning for colon cancer metastasized to liver. Patient was treated for acute UTI with sepsis and treated with ceftriaxone while in the hospital and discharged on cefuroxime which was finished on 10/27/2023. Pt presented to [facility] for percutaneous liver biopsy to confirm metastatic colon cancer but patient was noted to have a HR of >140, SBP 115, and O2 sat low 90s on RA. Due to concern for possible PE pt was sent to the ED for further evaluation. Patient reports increased fatigue and weakness especially with walking since discharge. Measured fever at home up to 101.4 yesterday and on Monday. Reports chronic tachycardia that has been ongoing ?for years?. Denies shortness of breath, cough, or any swelling or pain in lower extremities. No nausea, vomiting, abdominal pain. No dysuria or polyuria. No hematochezia, melena. In the ED pt with elevated temperature 99.6 degrees, tachycardia of 135, tachypnea up to 24, and soft BP as low as 103/49. Patient currently satting 9% on RA. Labs were significant for leukocytosis 18.9, H&H 7.7/25.5, sodium 134, potassium 3.2, lactic acid 3.1 with repeat 2.5 and 2.1, AST 76, alk-phos 348, albumin 2.8. UA negative for UTI. Tested negative for flu, RSV, COVID. CXR showed no acute abnormality. CTA of chest nondiagnostic for PE, but showed persistent oblique platelike atelectasis in right lower lobe. CT of head showed no evidence of acute intracranial hemorrhage or edematous territorial infarction, but showed chronic lacunar infarct in left cerebral hemisphere. EKG demonstrated sinus tachycardia of 130 with no evidence of significant ST elevations or depressions. Pt was treated with IVF and cefepime. Pt will be admitted to the hospital for treatment and further evaluation of patient meeting SIRS criteria but with unclear infectious source: Differential includes UTI versus GI infection versus PE versus secondary to malignancy. hospital course: Patient was admitted for SIRS, initially differential included sepsis due to UTI or GI infection, however cultures were negative and patient did not have further fevers so antibiotics were discontinued. Initial concern for VTE E was ruled out with negative lower extremity Doppler, and V/Q negative study which was pursued after CTA was poor quality. Most likely this is tumor fever and can be treated with Tylenol. For colon CA with liver Mets, patient will follow up with IR to complete biopsy. For anemia of inflammation chronic blood loss/iron deficiency-acute on chronic was transfused 1 unit of PRBC and hemoglobin improved appropriately. For mild intermittent asthma she remained stable. For diabetes was continue insulin. For hyperlipidemia was continue on statin. For GERD was continued on PPI. Patient is having right-sided abdominal pain due to her liver Mets. She will be discharged home on morphine 15mg q8h p.o. p.r.n moderate pain. She should continue follow with Oncology as outpatient. Time Attestation Discharge Coordination Time (in mins): 35 Quality: Safe Use of Opioids Does Pt have an Active Cancer Diagnosis on the Problem List?: Yes Opioid Measure Date for [facility] Report: 10/05/23 Opioid Measure Time for [facility] Report: 09:27 Quality: Stroke Does the patient have a stroke diagnosis?: No Physical Exam Vital Signs: Vital Signs: Last Vital Signs Temp 97.4 F 11/04/23 07:34 Pulse 111 H 11/04/23 07:34 Resp 16 11/04/23 07:34 BP 124/53 L 11/04/23 07:34 Pulse Ox 91 L 11/04/23 07:34 O2 Del Method Room Air 11/04/23 07:34 Oxygen Flow Rate 2 11/01/23 11:51 BMI result Body Mass Index 38.3 General: AO X 3, no acute distress Resp: CTA bilateral, no accessory muscles used CVS: S1,S2,RRR GI: soft, non tender, non distended Neuro: motor grossly intact, alert Psych: appropriate affect, appropriate insight DS: Data Data Completed and Pending Completed studies during hospitalization [Text1]: Procedures Excision of Sigmoid Colon, Via Natural or Artificial Opening Endoscopic, Diagnostic (10/19/23) Transfusion of Nonautologous Red Blood Cells into Peripheral Vein, Percutaneous Approach (10/19/23) Labs on day of discharge: Laboratory Results - last 24 hr 11/01/23 11/03/23 11/03/23 10:44 11:09 16:00 WBC RBC Hgb Hct MCV MCH MCHC RDW Plt Count MPV Absolute Nucleated RBC Nucleated RBC % (auto) Sodium Potassium Chloride Carbon Dioxide Anion Gap BUN Creatinine Estim Creat Clear Calc Estimated GFR POC Glucose 73 170 H Fasting Glucose Calcium Antibody Identification Inconclusive Crossmatch ([facility]) See Detail 11/03/23 11/04/23 11/04/23 19:46 05:12 07:38 WBC 13.8 H RBC 3.66 L Hgb 7.9 L Hct 26.4 L MCV 72.1 L MCH 21.6 L MCHC 29.9 L RDW 26.4 H Plt Count 620 H MPV 8.4 L Absolute Nucleated RBC 0.000 Nucleated RBC % (auto) 0.0 Sodium 136 Potassium 3.9 Chloride 102 Carbon Dioxide 23 Anion Gap 15 BUN 6 L Creatinine 0.53 Estim Creat Clear Calc 147.8 Estimated GFR > 60 POC Glucose 115 87 Fasting Glucose 82 Calcium 8.5 Antibody Identification Crossmatch ([facility]) Preliminary micro results at discharge 11/01/23 13:26 Blood Culture - Preliminary Blood - Venous No growth after 48 hours. 11/01/23 13:09 Blood Culture - Preliminary Blood - Venous No growth after 48 hours. Discharge Plan Discharge Anticipated Discharge Date/Time: 11/04/23 09:19 Patient Disposition: Home, Self-Care Discharge Diagnosis: sirs Referrals: Regina Barr PA [Primary Care Provider] - 11/10/23 1:30 pm (You have a follow up appointment scheduled. If you can not make this appointment please call the office to reschedule.) Discharge Medications: New guaifenesin 100 mg/5 mL Liquid 100 mg PO Q6H PRN (Reason: Cough) Qty: 473 0RF benzonatate 100 mg Capsule 100 mg PO TID PRN (Reason: Cough) Qty: 30 0RF morphine 15 mg tablet 15 mg PO Q8H PRN (Reason: moderate pain (scale score 5-6)) Qty: 30 0RF Rx Instructions: Partial Fill upon patient request. Continued Vitron-C 65 mg iron- 125 mg tablet,delayed release (DR/EC) 1 tab PO DAILY 90 Days Qty: 90 0RF Rx Instructions: swallow whole; do not chew/break/dissolve/open cholecalciferol (vitamin D3) 125 mcg (5,000 unit) capsule 125 mcg PO DAILY 90 Days Qty: 90 0RF albuterol sulfate 90 mcg/actuation aerosol powdr breath activated 2 inh inhalation Q4-6H PRN (Reason: shortness of breath or wheezing) Qty: 1 0RF atorvastatin 40 mg tablet 40 mg PO DAILY gabapentin 600 mg tablet 600 mg PO BEDTIME rizatriptan 10 mg tablet 10 mg PO DAILY MRX1 PRN (Reason: migraine) amitriptyline 50 mg tablet 50 mg PO BEDTIME buspirone 10 mg tablet 10 mg PO BID PRN (Reason: Anxiety) metformin 500 mg tablet extended release 24 hr 1,000 mg PO BID bupropion HCl 300 mg tablet extended release 24 hr 300 mg PO QAM ferrous sulfate 325 mg (65 mg iron) tablet,delayed release (DR/EC) 325 mg PO DAILY albuterol sulfate 2.5 mg /3 mL (0.083 %) solution for nebulization 3 mg inhalation Q4H PRN (Reason: breathing) cetirizine 10 mg tablet 10 mg PO DAILY pantoprazole 40 mg tablet,delayed release (DR/EC) 40 mg PO DAILY bupropion HCl 150 mg tablet extended release 24 hr 150 mg PO QAM fluticasone propionate 50 mcg/actuation spray,suspension 2 spray intranasal BEDTIME montelukast 10 mg tablet 10 mg PO DAILY triamcinolone acetonide 0.025 % lotion 1 appl topical BID PRN (Reason: itch) cyclobenzaprine 5 mg tablet 5 mg PO BID@0900,1300 PRN (Reason: Muscle Spasm) Discharge Orders: Discharge Order (Routine); Ordered 11/04/23 Ordered By: Saran Ware Diet: Advance to usual diet Activity on Discharge: As tolerated Stand Alone Forms: Patient Portal Discharge page Print Language: Turkish Other Ambulatory Orders: CT biopsy liver (Routine) Timeframe: 1 Week Facility: [facility] - Location: CT Scan Ordered By: Saran Ware Care Plan Goals: manage colon cancer Health Concerns: colon cancer Plan of Treatment: morphine for pain control, follow up with IR for biopsy, follow up with oncology Assessment: see above
--- NOTE | 2023-11-04 11:23 | MHC.CM.PN ---
Pt is medically cleared for D/C home with resumption of previous [facility] services, pts daughter to transport her home.
== END 2023-11-04 11:21 | disposition home or self-care (01) | DRG 240 ==
LOC: HO.ED 17:31 → HO.EDOVER 19:06 → HO.IMC 11-02 07:29
PROVIDERS: Student in an Organized Health Care Education/Training Program; Admitting Provider Student in an Organized Health Care Education/Training Program; Emergency Provider Emergency Medicine; PCP Physician Assistant Medical; Visit Provider Internal Medicine
DX: C18.7 Malignant neoplasm of sigmoid colon (principal); C78.7 Secondary malignant neoplasm of liver and intrahepatic bile duct; D63.0 Anemia in neoplastic disease; E11.9 Type 2 diabetes mellitus without complications; D50.0 Iron deficiency anemia secondary to blood loss (chronic); G89.3 Neoplasm related pain (acute) (chronic); E78.5 Hyperlipidemia, unspecified; G47.33 Obstructive sleep apnea (adult) (pediatric); R50.81 Fever presenting with conditions classified elsewhere; K21.9 Gastro-esophageal reflux disease without esophagitis; M79.7 Fibromyalgia; J45.20 Mild intermittent asthma, uncomplicated; Z20.822 Contact with and (suspected) exposure to COVID-19; Z79.51 Long term (current) use of inhaled steroids; Z79.84 Long term (current) use of oral hypoglycemic drugs; Z79.899 Other long term (current) drug therapy
CPT/HCPCS: 0241U; 36415; 70450; 71045; 71275; 78580; 80048; 80053; 81001; 82803; 82947; 83605; 83690; 83735; 84702; 85025; 85027; 85379; 85610; 86850; 86870; 86885; 86900; 86901; 86920; 86922; 87040; 93005; 93970; 94640; 99285; A9540; J0131; J0692; J0696; J2270; P9016; P9047; Q9967

== ENCOUNTER → 2023-11-01 12:19 | Outpatient (BNV) | payer OTHER, SELFPAY | PROVIDERS: Admitting Provider Student in an Organized Health Care Education/Training Program; Emergency Provider Emergency Medicine; PCP Physician Assistant Medical; Visit Provider Internal Medicine Cardiovascular Disease | DX: R00.0 Tachycardia, unspecified (principal) | CPT/HCPCS: 93010 ==

== ENCOUNTER → 2023-11-01 18:43 | Outpatient (BNV) | payer OTHER, SELFPAY | PROVIDERS: Admitting Provider Student in an Organized Health Care Education/Training Program; Emergency Provider Emergency Medicine; PCP Physician Assistant Medical; Visit Provider Student in an Organized Health Care Education/Training Program | DX: C18.9 Malignant neoplasm of colon, unspecified (principal) | CPT/HCPCS: 99223; 99232; 99239 ==

== ENCOUNTER → 2023-11-01 18:43 | Outpatient (BNV) | payer OTHER, SELFPAY | PROVIDERS: Admitting Provider Student in an Organized Health Care Education/Training Program; Emergency Provider Emergency Medicine; PCP Physician Assistant Medical; Visit Provider Internal Medicine Medical Oncology | DX: C18.7 Malignant neoplasm of sigmoid colon (principal); C78.7 Secondary malignant neoplasm of liver and intrahepatic bile duct | CPT/HCPCS: 99222 ==

== ENCOUNTER 2023-11-13 09:11 | Day surgery (SDC) | payer OTHER, SELFPAY ==
--- NOTE | ~2023-11-13 | IR_ITS ---
CLINICAL HISTORY: Metastatic colon cancer. The patient presents to interventional radiology for placement of a port for chemotherapy. PROCEDURES: 1. Real-time ultrasound-guided access into the right internal jugular vein after documentation of selected vessel patency, and permanent image storing in the patient records. 2. Placement of a 6.6 [place] single-lumen power port. CLINICIAN: Ramos Domínguez PA-C MEDICATIONS: - Versed 1.5 mg, Fentanyl 75 mcg, Lidocaine 1% 10 mL SQ -Antibiotics: Ancef 2g -For additional details, please see nursing flowsheet. Complications: None. Estimated blood loss: <5 ml Specimens: None. Contrast: None. Fluoroscopy time: 1.5 min MODERATE SEDATION TIME: 40 min PROCEDURE NOTE: The procedure, risks, benefits, and alternatives were carefully explained to the patient and written informed consent was obtained. The patient was placed supine on the fluoroscopy table. A timeout was performed. The right neck and chest was prepped and draped in usual sterile fashion. Maximum barrier technique was utilized. Local anesthesia was administered to the access site with 1% lidocaine. Under ultrasound guidance, the right internal jugular vein was accessed with a 5 fr micropuncture set. A 0.035 in wire was advanced into the IVC. A peel-away sheath was advanced over the wire and into the SVC, and the wire was removed. Next, subcutaneous lidocaine was administered to the chest. The port pocket was created after the skin incision, utilizing blunt dissection. Using blunt dissection, a subcutaneous tunnel was created that connects from the port pocket to the venotomy site. Through the peel-away sheath, the 6.6 [place] port catheter was placed. The catheter position was verified with fluoroscopy to be at the superior vena cava/right atrial junction. The port was connected to the catheter and was placed in the pocket. The venotomy site was closed with a 3-0 Vicryl subcutaneous suture. The port incision site was closed with interrupted 3-0 Vicryl subcutaneous sutures and surgical glue. Prior to closing the skin, 1 g of Ancef solution was placed in the pocket. The port was tested, flushed, and packed with heparin per routine protocol. The patient tolerated the procedure well. The patient was stable after the procedure and was transferred to the PACU. The procedure was performed under moderate sedation and with a dedicated nurse with continuous monitoring of vital signs. A permanent image of the ultrasound the neck and fluoroscopic image of the chest was saved and sent to PACS. FINDINGS: 1. Patent right internal jugular vein 2. Placement of a 6.6 [place] single lumen power port. 3. Port flushes and aspirates very well with a 10 mL syringe. No pneumothorax. IR/IR cvc insert tunnel w prt/liberal arts dean IMPRESSION: Placement of a 6.6 [place] single-lumen power port. PLAN: - The patient will be discharged home when stable by sedation protocol. - Port may be used immediately. This procedure was performed by Ramos Domínguez PA-C, and directly supervised by Dr. Pierson
[2023-11-13 09:37] LABS: UPreg QC Valid YES; Urine Pregnancy NEGATIVE (NEGATIVE)
[2023-11-13 10:15] VITALS: BMI 39.9
[2023-11-13 10:20] VITALS: BP 129/77; PULSE 129; RESP 18; TEMP 36.6; O2SAT 94
[2023-11-13 10:22] LABS: Glucose, Whole Blood 84 mg/dL (60-115)
--- NOTE | 2023-11-13 12:01 | MHC.SHP ---
Pre-Procedural Eval Section A - 24 Hr Update-Section A only Date of Service: 11/13/23 Section B - Complete if H&P > 30 days Chief Complaint: COLON CARCINOMA WITH LIVER METS Details of Present Illness: colon cance. needs access for chemotherapy Relevant Family History (Specify if Yes): No Relevant Social History: None Present Medications: see Short Stay Collaborative assessment Medical History: Significant History History of Previous Operations: No relevant previous surgery Allergies: Allergies Allergy/AdvReac Type Severity Reaction Status Date / Time No Known Allergies Allergy Verified 11/13/23 10:21 Review of Systems Sugical H&P ROS: Negative: Constitution, Cardiovascular, Respiratory and Integumentary Exam Surgical H&P Exam: Normal: Lungs, Normal: Skin and Normal: Neurological, Not Evaluated: HEENT and Significant Findings: Heart (tachycardia, regular) Plan Diagnosis/Plan: Unchanged I have reviewed the history and physical and performed a pertinent physical examination on my patient. No changes have occurred unless specified. Time Spent With Patient Time: Total time managing care of this patient today ____ minutes.
== END 2023-11-13 12:40 | disposition home or self-care (01) ==
PROVIDERS: Physician Assistant Surgical; Radiology Vascular & Interventional Radiology; PCP Physician Assistant Medical; Visit Provider Internal Medicine Medical Oncology
DX: Z45.2 Encounter for adjustment and management of vascular access device (principal); C18.9 Malignant neoplasm of colon, unspecified; C78.7 Secondary malignant neoplasm of liver and intrahepatic bile duct; Z80.0 Family history of malignant neoplasm of digestive organs; D50.9 Iron deficiency anemia, unspecified; E11.9 Type 2 diabetes mellitus without complications; E78.5 Hyperlipidemia, unspecified; J45.20 Mild intermittent asthma, uncomplicated; M79.7 Fibromyalgia; Z79.51 Long term (current) use of inhaled steroids; Z79.899 Other long term (current) drug therapy; Z79.84 Long term (current) use of oral hypoglycemic drugs; Z98.890 Other specified postprocedural states
CPT/HCPCS: 36561; 76937; 81025; 82947; 99152; 99153; C1769; C1788; J0690; J1642; J1644; J2250; J2310; J3010

== ENCOUNTER → 2023-11-13 10:27 | Outpatient (BNV) | payer OTHER, SELFPAY | PROVIDERS: PCP Physician Assistant Medical; Visit Provider Physician Assistant Surgical | DX: C18.9 Malignant neoplasm of colon, unspecified (principal) | CPT/HCPCS: 36561; 76937; 77001 ==

== ENCOUNTER 2024-03-05 08:39 | Observation (INO) | payer OTHER, SELFPAY ==
[2024-03-05] VITALS (11 sets, daily range): BP systolic 118–151; BP diastolic 70–99; PULSE 85–127; RESP 14–20; TEMP 36.4–37.2; O2SAT 96–99; BMI 39.2
--- NOTE | ~2024-03-05 | XR_ITS ---
EXAMINATION: XR CHEST CLINICAL INFORMATION: Syncope COMPARISON: 11/01/2023 TECHNIQUE: Frontal view of the chest was obtained. FINDINGS: Right internal jugular tunneled and accessed chest port with internal tip in the superior vena cava. Heart, mediastinum, pulmonary vessels and lung spivey within normal limits. Bony structures are intact. XR/XR chest 1V IMPRESSION: No acute cardiopulmonary disease.
--- NOTE | ~2024-03-05 | XR_ITS ---
EXAMINATION: XR KNEE, LEFT CLINICAL INFORMATION: Pain after fall COMPARISON: 05/16/2018 TECHNIQUE: Two views of the left knee. FINDINGS: Interval total knee replacement. Prosthetic components appear appropriate in position. Alignment is maintained. No fracture, dislocation or joint effusion.. XR/XR knee LT 2V IMPRESSION: Left total knee replacement. No acute bony pathology recognized.
--- NOTE | ~2024-03-05 | CT_ITS ---
EXAMINATION: Unenhanced CT of the head and cervical spine INDICATION: Syncopal fall and neck pain COMPARISON: None TECHNIQUE: Continuous helical imaging obtained through the head and cervical spine without IV contrast. Reconstructed images performed in the coronal and sagittal planes. This CT examination was performed using dose optimization techniques as appropriate, variously including the following: *Automated exposure control *Adjustment of mA and/or kV according to patient size (this includes techniques or standardized protocols for targeted exams where dose is matched to indication/reason for exam; i.e. extremities or head) *Use of iterative reconstruction technique TOTAL EXAM DLP: 670 and 660 mGy-cm, head and cervical spine respectively FINDINGS: Head: No intracranial hemorrhage, extra-axial fluid collections, fractures or significant soft tissue hematomas identified following fall. No evolving infarct, mass lesion, mass effect or midline shift seen. Intraorbital structures are unremarkable. Bilateral air-fluid levels identified in the maxillary sinuses, left greater than right. Bilateral ethmoid sinus disease. The frontal sinuses are underdeveloped. Mastoids are clear. Cervical spine: Cervical lordotic straightening/mild reversal. No fracture or traumatic subluxation. Odontoid is intact. Posterior elements are aligned and no prevertebral soft tissue swelling identified. Enlarged heterogeneous thyroid. Nonspecific bilateral cervical lymph nodes. Lung apices are clear. CT/CT cervical spine wo IV con IMPRESSION: No acute intracranial or cervical spine pathology. Cervical lordotic straightening/slight reversal, question spasm Sinus disease. Enlarged heterogeneous thyroid. Thyroid ultrasound recommended.
--- NOTE | ~2024-03-05 | CT_ITS ---
EXAMINATION: Unenhanced CT of the head and cervical spine INDICATION: Syncopal fall and neck pain COMPARISON: None TECHNIQUE: Continuous helical imaging obtained through the head and cervical spine without IV contrast. Reconstructed images performed in the coronal and sagittal planes. This CT examination was performed using dose optimization techniques as appropriate, variously including the following: *Automated exposure control *Adjustment of mA and/or kV according to patient size (this includes techniques or standardized protocols for targeted exams where dose is matched to indication/reason for exam; i.e. extremities or head) *Use of iterative reconstruction technique TOTAL EXAM DLP: 670 and 660 mGy-cm, head and cervical spine respectively FINDINGS: Head: No intracranial hemorrhage, extra-axial fluid collections, fractures or significant soft tissue hematomas identified following fall. No evolving infarct, mass lesion, mass effect or midline shift seen. Intraorbital structures are unremarkable. Bilateral air-fluid levels identified in the maxillary sinuses, left greater than right. Bilateral ethmoid sinus disease. The frontal sinuses are underdeveloped. Mastoids are clear. Cervical spine: Cervical lordotic straightening/mild reversal. No fracture or traumatic subluxation. Odontoid is intact. Posterior elements are aligned and no prevertebral soft tissue swelling identified. Enlarged heterogeneous thyroid. Nonspecific bilateral cervical lymph nodes. Lung apices are clear. CT/CT head/brain wo IV con IMPRESSION: No acute intracranial or cervical spine pathology. Cervical lordotic straightening/slight reversal, question spasm Sinus disease. Enlarged heterogeneous thyroid. Thyroid ultrasound recommended.
--- NOTE | 2024-03-05 10:13 | ECG_ITS ---
Test Reason : SYNCOPE Blood Pressure : / mmHG Vent. Rate : 084 BPM Atrial Rate : 084 BPM P-R Int : 120 ms QRS Dur : 084 ms QT Int : 358 ms P-R-T Axes : 044 024 012 degrees QTc Int : 423 ms Normal sinus rhythm Normal ECG When compared with ECG of 01-NOV-2023 13:17, Vent. rate has decreased BY 46 BPM T wave amplitude has increased in Lateral leads Referred By: Brandon Calloway Electronically Signed By:JAY MAYA
--- NOTE | 2024-03-05 10:14 | ED.GENADULT ---
HPI - General Adult General Chief complaint: Fall Stated complaint: outpatient response Time Seen by Provider: 03/05/24 09:59 Source: patient and family Mode of arrival: other (Wheelchair from outpatient chemotherapy.) Limitations: no limitations History of Present Illness ED Provider: DR. Calloway HPI narrative: 49-year-old female with pertinent history asthma, HLD, dm 2, iron deficiency, fibromyalgia, stage IV colon cancer that she is receiving chemotherapy for. Patient was going for her chemotherapy session when she felt lightheaded then syncopized falling face down on the floor face down, patient do not recall the fall itself. Patient was transported to the ED for further evaluation. No CP, no SOB, no headache. Complaining of neck pain and left knee pain. Related Data Home Medications ?Medication ?Instructions ?Recorded ?Confirmed bupropion HCl 150 mg 24 hr tablet, 150 mg PO QAM 04/13/23 11/10/23 extended release cetirizine 10 mg tablet 10 mg PO DAILY allergies 04/13/23 11/10/23 cyclobenzaprine 5 mg tablet 5 mg PO BID@0900,1300 PRN Muscle 04/13/23 11/10/23 Spasm fluticasone propionate 50 2 spray intranasal BEDTIME 04/13/23 11/10/23 mcg/actuation nasal spray,suspension montelukast 10 mg tablet 10 mg PO DAILY 04/13/23 11/10/23 pantoprazole 40 mg tablet,delayed 40 mg PO DAILY 04/13/23 11/10/23 release triamcinolone acetonide 0.025 % 1 appl topical BID PRN itch 04/13/23 11/10/23 lotion albuterol sulfate 2.5 mg/3 mL 3 mg inhalation Q4H PRN breathing 10/19/23 11/10/23 (0.083 %) solution for nebulization amitriptyline 50 mg tablet 50 mg PO BEDTIME 10/19/23 11/10/23 atorvastatin 40 mg tablet 40 mg PO DAILY 10/19/23 11/10/23 bupropion HCl 300 mg 24 hr tablet, 300 mg PO QAM 10/19/23 11/10/23 extended release buspirone 10 mg tablet 10 mg PO BID PRN Anxiety 10/19/23 11/10/23 gabapentin 600 mg tablet 600 mg PO BEDTIME neuropathic pain 10/19/23 11/10/23 metformin 500 mg tablet,extended 1,000 mg PO BID diabetes mellitus 10/19/23 11/10/23 release 24 hr rizatriptan 10 mg tablet 10 mg PO DAILY MRX1 PRN migraine 10/19/23 11/10/23 Previous Rx's ?Medication ?Instructions ?Recorded albuterol sulfate 90 mcg/actuation 2 inh inhalation Q4-6H PRN 12/26/21 breath activated powder inhaler shortness of breath or wheezing #1 ea cholecalciferol (vitamin D3) 125 125 mcg PO DAILY 90 days #90 caps 05/25/23 mcg (5,000 unit) capsule iron,carbonyl 65 mg-vitamin C 125 1 tab PO DAILY 90 days #90 tabs 05/25/23 mg tablet,delayed release (Vitron-C) benzonatate 100 mg capsule 100 mg PO TID PRN Cough #30 caps 11/04/23 guaifenesin 100 mg/5 mL oral liquid 100 mg (5 mL) PO Q6H PRN Cough 11/04/23 #473 mL cholecalciferol (vitamin D3) 125 125 mcg PO DAILY #90 caps 11/10/23 mcg (5,000 unit) capsule dexamethasone 4 mg tablet 4 mg PO BID #60 tabs 11/10/23 ondansetron 8 mg disintegrating 8 mg PO Q8H #60 tabs 11/10/23 tablet sennosides 8.6 mg tablet (Senokot) 8.6 mg PO BID #60 tabs 11/10/23 morphine 15 mg immediate release 15 mg PO Q8H PRN moderate pain 12/12/23 tablet (scale score 5-6) #30 tabs minocycline 100 mg capsule 100 mg PO Q12H #20 caps 01/22/24 morphine 30 mg tablet,extended 30 mg PO Q12H #60 tabs 01/22/24 release (MS Contin) nitrofurantoin 100 mg PO Q12H #14 caps 01/22/24 monohydrate/macrocrystals 100 mg capsule (Macrobid) lidocaine 4 % topical cream 1 appl topical BID #45 grams 02/09/24 minocycline 100 mg capsule 100 mg PO Q12H #60 caps 02/18/24 Magic Mouthwash 10 ml PO QID #240 mL 02/20/24 Diphen/Lido/Antacid 1:1:1 240 mL suspension Allergies Allergy/AdvReac Type Severity Reaction Status Date / Time No Known Allergies Allergy Verified 03/05/24 08:47 Review of Systems Review of Systems: All other systems are reviewed and are negative Constitutional: Reports as per HPI and Reports no additional constitutional complaints Eyes: Reports as per HPI and Reports no additional eye complaints Reports system reviewed and no additional complaints, except as documented Cardiovascular: Reports as per HPI and Reports no additional cardiovascular complaints Respiratory: Reports as per HPI and Reports no additional respiratory complaints Gastrointestinal: Reports as per HPI and Reports no additional gastrointestinal complaints Genitourinary: Reports no additional female genitourinary complaints Musculoskeletal: Reports no additional musculoskeletal complaints Skin/Breast: Reports system reviewed and no additional complaints, except as docu Psychiatric: Reports no additional psychiatric complaints Endocrine: Reports no additional endocrine complaints Hematologic/Lymphatic: Reports no additional hematologic/lymphatic complaints Allergic/Immunologic: Reports no additional allergic/immunologic complaints Reports system reviewed and no additional complaints, except as documented and Reports Abnormal speech present [facility] Past Medical History Medical History Anemia Non-insulin dependent type 2 diabetes mellitus Migraines Fibromyalgia Mild intermittent asthma HLD (hyperlipidemia) Surgical History Hx of tubal ligation History of Ritchie colposuspension H/O knee surgery Family History Family History Mother Diabetes Father Leukemia Daughter Asthma Son No problems noted. Son No problems noted. Daughter No problems noted. Paternal Grandfather Colon cancer Paternal Aunt Breast cancer Social History Social History Household Members: Family and Children Household Members Other:: 4 Housing: Apartment Do you presently have visiting nurse or other home services: Yes Alcohol intake: current Alcohol intake frequency: does not drink Patient Tobacco Use Status: Never used Tobacco Advance Directives: No Advance Directives Information Provided: Yes Do you have a plan to hurt others: No Plan service: No Current occupational status: unemployed Physical Exam ED Vital Signs: Vital Signs - 24 hr 03/05/24 08:46 03/05/24 10:00 03/05/24 11:45 Temperature 97.7 F 97.9 F Pulse Rate 112 H 89 85 Respiratory Rate 20 14 Blood Pressure 135/92 H 127/93 H 122/70 Pulse Oximetry 98 98 Oxygen Delivery Method Room Air Room Air 03/05/24 11:54 03/05/24 11:55 Temperature Pulse Rate 106 H 110 H Respiratory Rate Blood Pressure 121/78 118/83 Pulse Oximetry Oxygen Delivery Method BMI result Body Mass Index 39.2 Vital signs have been reviewed and appear to be correct. Blood pressure elevated. Heart rate normal. Respiratory rate normal. Temperature normal. Oxygen saturation normal. Appearance: Alert. Oriented X3. No acute distress. Head: Normal external exam. Normocephalic. Atraumatic. No Godoy signs noted. No raccoon eyes noted Eyes: PERRLA. EOMI. Conjunctiva and sclera normal. Eyelids normal. ENT: TM's Normal. Pharynx normal. Uvula midline. Moist mucous membranes. No trismus noted. No drooling noted. No muffled voice noted. Neck: Normal inspection. Neck supple. Midline cervical spine tenderness, no step-off, no deformity, No adenopathy. Thyroid Normal. No meningeal signs. No neck mass noted. CVS: Normal heart rate and rhythm. Heart sound normal. No murmurs noted. Pulses normal throughout. Respiratory: No respiratory distress. Painless inspiration. Breath sounds normal. No wheezes/rales/rhonchi noted. Chest nontender. No accessory muscle usage noted or decreased air movement noted. Abdomen: Soft and nontender. Bowel sounds normal in all 4 quadrants. No distention noted. No organomegaly noted. No visible injury noted. Back: No CVA tenderness. Full range of motion noted. Skin: Skin warm and dry. Normal skin color. Normal skin turgor. No rashes/lesions/lacerations noted. Extremities: Left knee exam: S/p remote total knee replacement, mild tenderness, no deformity, no step-off. Neuro: Oriented X 3. Cranial nerve exam: II-XII are grossly intact No motor deficit. No sensory deficit. Reflexes normal. Course Reevaluation(s) Reevaluation #1: S/p syncope. 1. Head and neck injury with unremarkable CT for acute intracranial pathology or neck fracture, GCS of 15. 2. Syncopal episode unremarkable cardiac workup in the emergency department, orthostatic unremarkable. Patient found to be orthostatic will hydrate. 3. Left knee pain, x-ray unremarkable for fracture. 4. Positive for COVID. Admit for further syncopal workup. Time: 11:45 Medications Administered Discontinued Medications Generic Name Dose Route Start Last Admin Trade Name Susanne PRN Reason Stop Dose Admin Sodium Chloride 1,000 mls @ 999 mls/hr 03/05/24 10:13 03/05/24 11:09 Ns IV 03/05/24 11:13 999 mls/hr .Q1H1M ONE Administration Medical Decision Making Differential Diagnosis Differential Diagnoses: The differential diagnosis associated with the presentation includes (Mechanical fall, syncope, ACS, intracranial bleed, cervical spine fracture, left knee fracture, electrolyte derangement, dehydration, orthostatic hypotension, severe anemia, viral infection.) Admission/Observation Consideration of admission/observation: Escalation of care including admission/observation considered Consult Healthcare Provider Management of the patient was discussed with: Hospitalist (Dr. Betancourt) Lab Data MDM Lab Attestation statement: I reviewed the patient's lab results. 03/05/24 10:46 03/05/24 10:46 Labs: Lab Results 03/05/24 03/05/24 Range/Units 10:46 11:08 WBC 4.5 L (4.8-10.8) X10*3/uL RBC 4.75 (4.20-5.50) X10*6/uL Hgb 14.2 (12.0-16.0) g/dl Hct 42.0 (37.0-47.0) % MCV 88.4 (80.0-98.0) fL MCH 29.9 (27.0-33.0) pg MCHC 33.8 (31.0-35.0) g/dl RDW 14.6 (11.0-16.0) % Plt Count 138 L (160-400) X10*3/uL MPV 9.8 (9.4-12.3) fL Immature Gran % (Auto) 0.0 (0.0-0.4) % Neut % (Auto) 45.9 (45-73) % Lymph % (Auto) 34.1 (20-40) % [place] % (Auto) 15.1 H (2-11) % Eos % (Auto) 4.5 H (0-4) % Baso % (Auto) 0.4 (0-2) % Lymph # (Auto) 1.5 (1.2-4.9) X10*3/uL [place] # (Auto) 0.7 (0.1-1.2) X10*3/uL Eos # (Auto) 0.2 (0.0-0.4) X10*3/uL Baso # (Auto) 0.0 (0.0-0.2) X10*3/uL Abs Immat Gran (auto) 0.00 (0.00-0.03) X10*3/uL Absolute Neuts (auto) 2.1 (2.0-8.3) x10*3/uL Absolute Nucleated RBC 0.000 (0.0-0.012) X10*3/uL Nucleated RBC % (auto) 0.0 (0.0-0.2) /100WBC Sodium 140 (135-145) mmol/L Potassium 3.3 (3.3-5.1) mmol/L Chloride 107 (96-108) mmol/L Carbon Dioxide 28 (22-29) mmol/L Anion Gap 8 L (12-20) BUN 7 L (9-16) mg/dL Creatinine 0.65 (0.5-1.4) mg/dL Estim Creat Clear Calc 120.9 Estimated GFR > 60 Random Glucose 159 H (60-115) mg/dL Calcium 9.5 (8.4-10.2) mg/dL Total Bilirubin 0.4 (0.0-1.0) mg/dL Direct Bilirubin 0.1 (0.0-0.5) mg/dL AST 38 H (5-31) U/L ALT 38 H (0-31) U/L Alkaline Phosphatase 113 (39-117) U/L Troponin I High Sens < 2.7 (<3.5-17.0) ng/L B-Natriuretic Peptide 12 (<100) pg/mL Total Protein 6.5 (6.5-8.0) g/dL Albumin 3.6 (3.5-5.0) g/dL Lipase 86 H (8-78) U/L Urine Color Yellow Urine Appearance Clear Urine pH 6.5 (5.0-9.0) Ur Specific [place] 1.010 (1.005-1.025) Urine Protein Negative (Neg-Trace) mg/dL Urine Glucose (UA) 100 H (Negative) mg/dL Urine Ketones Negative (Negative) mg/dL Urine Blood Negative (Negative) Urine Nitrite Negative (Negative) Ur Leukocyte Esterase Negative (Negative) Influenza Type A (PCR) NEGATIVE (Negative) Influenza Type B (PCR) NEGATIVE (Negative) RSV RNA Qual (PCR) NEGATIVE (Negative) SARS-CoV-2 RNA (RT-PCR) POSITIVE A (Negative) Independent Interpretation I performed an independent interpretation of an: EKG (Normal sinus rhythm at 84 beats per minutes, normal intervals, no ST-T changes, no change from previous EKG.), Plain X-Ray (Left knee/chest x-ray: No acute pathology.) and CT Scan (Head/cervical spine: No acute intracranial or cervical spine pathology. Cervical lordotic straightening/slight reversal, question spasm Sinus disease. Enlarged heterogeneous thyroid. Thyroid ultrasound recommended.) Radiology Impression Discussion of test interpretation with radiology: I have reviewed the radiologist's reading. Discharge Plan Discharge Clinical Impression: Syncope and collapse Patient Disposition: Admitted As Inpatient Print Language: Khmer
[2024-03-05 10:53] LABS: MANUAL DIFF FLAG NO
--- NOTE | 2024-03-05 10:53 | PC.NURSE ---
patient power port accessed by this RN, labs drawn and sent to lab.
[2024-03-05 10:59] LABS: Basophils Percent Auto 0.4 % (0-2); Eosinophils Absolute Auto 0.2 X10*3/uL (0.0-0.4); Eosinophils Percent Auto 4.5 % (0-4); Hemoglobin 14.2 g/dl (12.0-16.0); Lymphocytes Absolute Auto 1.5 X10*3/uL (1.2-4.9); Lymphocytes Percent Auto 34.1 % (20-40); Mean Corpuscular HGB Conc 33.8 g/dl (31.0-35.0); Mean Corpuscular Hemoglobin 29.9 pg (27.0-33.0); Mean Corpuscular Volume 88.4 fL (80.0-98.0); Mean Platelet Volume 9.8 fL (9.4-12.3); Monocytes Absolute Auto 0.7 X10*3/uL (0.1-1.2); Monocytes Percent Auto 15.1 % (2-11); Neutrophils Absolute Auto 2.1 x10*3/uL (2.0-8.3); Neutrophils Percent Auto 45.9 % (45-73); Platelet Count 138 X10*3/uL (160-400); Red Blood Count 4.75 X10*6/uL (4.20-5.50); Red Cell Distribution Width 14.6 % (11.0-16.0); White Blood Count 4.5 X10*3/uL (4.8-10.8)
[2024-03-05] MEDS: 0.9 % Sodium Chloride 1,000 ML 999 ML IV (11:09)
[2024-03-05 11:12] LABS: Alanine Aminotransferase 38 U/L (0-31); Albumin Level 3.6 g/dL (3.5-5.0); Alkaline Phosphatase 113 U/L (39-117); Anion Gap 8 (12-20); Aspartate Amino Transferase 38 U/L (5-31); Bilirubin Direct 0.1 mg/dL (0.0-0.5); Bilirubin Total 0.4 mg/dL (0.0-1.0); Blood Urea Nitrogen 7 mg/dL (9-16); Calcium 9.5 mg/dL (8.4-10.2); Carbon Dioxide 28 mmol/L (22-29); Chloride 107 mmol/L (96-108); Creatinine Clr Calc Pharmacy 120.9; Estimated Glomerular Filt Rate > 60; Glucose Random 159 mg/dL (60-115); Lipase 86 U/L (8-78); Potassium 3.3 mmol/L (3.3-5.1); Sodium 140 mmol/L (135-145); Total Protein 6.5 g/dL (6.5-8.0)
[2024-03-05 11:14] LABS: B Type Natriuretic Peptide 12 pg/mL (<100)
[2024-03-05 11:15] LABS: Appearance Urine Clear; Color Urine Yellow; Glucose Urine UA 100 mg/dL (Negative); Leukocyte Esterase Urine Negative (Negative); Nitrite Urine Negative (Negative); PH 6.5 (5.0-9.0); Urine Blood Negative (Negative); Urine Ketones Negative (Negative); Urine Protein Negative (Neg-Trace)
[2024-03-05 11:18] LABS: Troponin-I High Sensitivity < 2.7 ng/L (<3.5-17.0)
[2024-03-05 12:15] LABS: Influenza A PCR NEGATIVE (Negative); Influenza B PCR NEGATIVE (Negative); Resp Syncy Virus RNA Qual PCR NEGATIVE (Negative); SARS COV2 PCR INHOUSE POSITIVE (Negative)
--- NOTE | 2024-03-05 14:37 | PHA.MEDREC ---
Pharmacy Consult ? Medication Reconciliation Pharmacy has completed the medication reconciliation. Spoke to patient via diplomatic interpreter/translator and confirmed medication list. Patient verified she takes both 150 mg and 300 mg bupropion XL. She last took her medications at home last night.
--- NOTE | 2024-03-05 15:37 | P.HPHOSP_ITS ---
History of Present Illness Date of Service: 03/05/24 Chief Complaint: Syncope 49 year old women presented to the ED after a fall at her oncology office. She stated that she was walking in but walking fast and she felt her left leg suddenly stiffened up and she grabbed for the side rail on the wall but could not get it and lost her balance and fell. She denied any loss of consciousness. She reported that she was able to roll over and was helped up from other people around. She denied any chest pain, headache, visual changes, shortness to breath, head trauma. She reported that she had not been feeling well recently and she did have a positive COVID test. She was also on chemotherapy currently. Overall, all diagnostic imaging studies were negative including head CT, cervical spine CT, knee and chest x-rays. All her labs were within acceptable limits. Blood pressure stable. Patient reports that she has been eating and drinking okay but again just feeling under the weather recently. EKG showed normal sinus rhythm with no ischemic changes noted. Patient was given Tylenol, melatonin, Tums, magnesium hydroxide, 1 L of IV fluid in the ER. She will be placed on observation for management of syncope/fall Review of Systems 2 Review of Systems: Denies any recent fever chills or decrease in appetite respiratory denied sob or cough cardiovascular denied chest pain gastrointestinal denies any dysphagia abdominal pain nausea vomiting or diarrhea genitourinary denies any dysuria frequency or hematuria musculoskeletal denies any joint pain or swelling neuropsych denies any weakness or seizures all other systems reviewed are negative [facility] Medical History Anemia Non-insulin dependent type 2 diabetes mellitus Migraines Fibromyalgia Mild intermittent asthma HLD (hyperlipidemia) Family History Mother Diabetes Father Leukemia Daughter Asthma Son No problems noted. Son No problems noted. Daughter No problems noted. Paternal Grandfather Colon cancer Paternal Aunt Breast cancer Surgical History Hx of tubal ligation History of Ritchie colposuspension H/O knee surgery Social History Household Members: Family and Children Household Members Other:: 4 Housing: Apartment Do you presently have visiting nurse or other home services: Yes Alcohol intake: current Alcohol intake frequency: does not drink Patient Tobacco Use Status: Never used Tobacco Advance Directives: No Advance Directives Information Provided: Yes Do you have a plan to hurt others: No Plan service: No Current occupational status: unemployed Meds Allergies Allergy/AdvReac Type Severity Reaction Status Date / Time No Known Allergies Allergy Verified 03/05/24 08:47 Active Medications: Current Medications Acetaminophen (Acetaminophen 325 Mg Tablet) 650 mg PO Q6H PRN PRN Reason: Pain, Mild (Pain Scale 1-3), fever or headache Calcium Carbonate (Calcium Carbonate 750 Mg Tab.Chew) 750 mg PO Q4H PRN PRN Reason: Heartburn Enoxaparin Sodium (Enoxaparin Sodium 40 Mg/0.4 Ml Syringe) 40 mg SUBCUT Q24H ROXIE Glucose (Glucose Gel 15 Gm Gel..Gram.) 15 gm PO Q15M PRN; Protocol PRN Reason: per Hypoglycemia Standing Ord. Dextrose (D10) 250 mls @ 750 mls/hr IV Q15M PRN; Protocol PRN Reason: per Hypoglycemia Standing Ord. Sodium Chloride (Ns) 1,000 mls @ 100 mls/hr IVCONT .Q10H ROXIE Insulin Human Lispro (Insulin Lispro 100 Unit/Ml 3 Ml Vial) 0 unit SUBCUT QIDACHS ROXIE; Protocol Magnesium Hydroxide (Milk Of Magnesia 30 Ml Oral.Susp) 30 ml PO DAILY PRN PRN Reason: Constipation Melatonin (Melatonin 3 Mg Tablet) 6 mg PO BEDTIME PRN PRN Reason: Insomnia Sodium Chloride (0.9 % Sodium Chloride Flush 3 Ml Syringe) 3 ml IVFLUSH QSHIFT [facility] Home Medications ?Medication ?Instructions ?Recorded ?Confirmed ?Last Taken ?Type bupropion HCl 150 mg 24 hr tablet, 150 mg PO DAILY 04/13/23 03/05/24 03/04/24 History extended release cetirizine 10 mg tablet 10 mg PO DAILY allergies 04/13/23 03/05/24 03/04/24 History cyclobenzaprine 5 mg tablet 5 mg PO TID Muscle Spasm 04/13/23 03/05/24 03/04/24 History fluticasone propionate 50 2 spray intranasal BEDTIME 04/13/23 03/05/24 03/04/24 History mcg/actuation nasal spray,suspension montelukast 10 mg tablet 10 mg PO DAILY 04/13/23 03/05/24 03/04/24 History pantoprazole 40 mg tablet,delayed 40 mg PO DAILY 04/13/23 03/05/24 03/04/24 History release triamcinolone acetonide 0.025 % 1 appl topical BID PRN itch 04/13/23 03/05/24 Unknown History lotion albuterol sulfate 2.5 mg/3 mL 3 mg inhalation Q4H PRN breathing 10/19/23 03/05/24 Unknown History (0.083 %) solution for nebulization amitriptyline 50 mg tablet 50 mg PO BEDTIME 10/19/23 03/05/24 03/04/24 History atorvastatin 40 mg tablet 40 mg PO DAILY 10/19/23 03/05/24 03/04/24 History bupropion HCl 300 mg 24 hr tablet, 300 mg PO DAILY 10/19/23 03/05/24 03/04/24 History extended release buspirone 10 mg tablet 10 mg PO BID PRN Anxiety 10/19/23 03/05/24 03/04/24 History gabapentin 600 mg tablet 600 mg PO BEDTIME neuropathic pain 10/19/23 03/05/24 03/04/24 History metformin 500 mg tablet,extended 1,000 mg PO BID diabetes mellitus 10/19/23 03/05/24 03/04/24 History release 24 hr rizatriptan 10 mg tablet 10 mg PO DAILY MRX1 PRN migraine 10/19/23 03/05/24 10/18/23 History albuterol sulfate 90 mcg/actuation 2 inh inhalation Q6H PRN shortness 03/05/24 03/05/24 Unknown History breath activated powder inhaler of breath or wheezing ondansetron 8 mg disintegrating 8 mg PO Q8H PRN Nausea And Vomiting 03/05/24 03/05/24 Unknown History tablet Physical Exam 2 Vital Signs and Narrative: Vital Signs: Last Vital Signs Temp 97.6 F 03/05/24 12:25 Pulse 107 H 03/05/24 12:25 Resp 18 03/05/24 12:25 BP 121/73 03/05/24 12:25 Pulse Ox 96 03/05/24 12:25 O2 Del Method Room Air 03/05/24 12:25 BMI result Body Mass Index 39.2 Appearing in no acute distress head is normocephalic atraumatic eyes pupils are PERRLA sclera is anicteric mouth throat mucous membranes are intact and moist neck is supple no lymphadenopathy, no JVD noted lung sounds are clear to auscultation heart regular rate rhythm, clear S1, S2 positive bowel sounds, abdomen is soft, nontender neuro patient is alert x3, no focal deficits Results Labs 03/05/24 10:46 03/05/24 10:46 Labs: Laboratory Results - last 24 hr 03/05/24 03/05/24 10:46 11:08 MCV 88.4 MCH 29.9 MCHC 33.8 RDW 14.6 Plt Count 138 L MPV 9.8 Immature Gran % (Auto) 0.0 Neut % (Auto) 45.9 Lymph % (Auto) 34.1 [place] % (Auto) 15.1 H Eos % (Auto) 4.5 H Baso % (Auto) 0.4 Lymph # (Auto) 1.5 [place] # (Auto) 0.7 Eos # (Auto) 0.2 Baso # (Auto) 0.0 Abs Immat Gran (auto) 0.00 Absolute Neuts (auto) 2.1 Absolute Nucleated RBC 0.000 Nucleated RBC % (auto) 0.0 Anion Gap 8 L Estim Creat Clear Calc 120.9 Estimated GFR > 60 Random Glucose 159 H Calcium 9.5 Total Bilirubin 0.4 Direct Bilirubin 0.1 AST 38 H ALT 38 H Alkaline Phosphatase 113 Troponin I High Sens < 2.7 B-Natriuretic Peptide 12 Total Protein 6.5 Albumin 3.6 Lipase 86 H Urine Color Yellow Urine Appearance Clear Urine pH 6.5 Ur Specific [place] 1.010 Urine Protein Negative Urine Glucose (UA) 100 H Urine Ketones Negative Urine Blood Negative Urine Nitrite Negative Ur Leukocyte Esterase Negative Influenza Type A (PCR) NEGATIVE Influenza Type B (PCR) NEGATIVE RSV RNA Qual (PCR) NEGATIVE SARS-CoV-2 RNA (RT-PCR) POSITIVE A Imaging Radiologist's Impressions: Impressions Chest X-Ray 03/05/24 10:59 IMPRESSION: No acute cardiopulmonary disease. Knee X-Ray 03/05/24 10:59 IMPRESSION: Left total knee replacement. No acute bony pathology recognized. Cervical Spine CT 03/05/24 11:06 IMPRESSION: No acute intracranial or cervical spine pathology. Cervical lordotic straightening/slight reversal, question spasm Sinus disease. Enlarged heterogeneous thyroid. Thyroid ultrasound recommended. Head CT 03/05/24 11:06 IMPRESSION: No acute intracranial or cervical spine pathology. Cervical lordotic straightening/slight reversal, question spasm Sinus disease. Enlarged heterogeneous thyroid. Thyroid ultrasound recommended. Assessment and Plan (1) COVID-19: Status: Acute (2) Syncope and collapse: Status: Acute Plan 49 year old women placed on observation for syncope while at chemotherapy with probable mechanical fall Syncope /fall Likely mechanical fall placed on obs cardiac monitoring check orthostatics Q shift IV fluids Covid pos no hypoxia monitor isolation DM2 ss, ada diet Asthma albuterol as needed Mental health continue home medications DVT prophylaxis with Lovenox full code Quality Stroke Does the patient have a stroke diagnosis?: No VTE Prior VTE?: No VTE Risk Level:: Medical - moderate - high VTE Device Contraindication: Treatment Not Indicated VTE Drug Contraindication: N/A - Med Ordered
[2024-03-05] MEDS: 0.9 % Sodium Chloride 1,000 ML 100 ML IVCONT (16:13)
[2024-03-05] MEDS: Enoxaparin Sodium 40 MG/0.4 ML SYRINGE SUBCUT (16:22)
--- NOTE | 2024-03-05 16:42 | PC.NURSE ---
patient ambulates to and from bathroom with no assistance, gait steady. patient has 100ml/hr normal saline running via port. patient is alert and oriented x4, VSS
[2024-03-05 16:46] LABS: Glucose, Whole Blood 161 mg/dL (60-115)
[2024-03-05] MEDS: Insulin Lispro 100 UNIT/ML 3 ML VIAL SUBCUT ×2 (19:04→22:03)
[2024-03-05] MEDS: Fluticasone Propionate Nasal 16 GM SPRAY 2 SPRAY NOSTRIL-B (20:19)
[2024-03-05] MEDS: Cyclobenzaprine HCl 5 MG TABLET PO (20:19)
[2024-03-05] MEDS: Amitriptyline HCl 50 MG TABLET PO (20:19)
[2024-03-05] MEDS: metFORMIN HCl ER 500 MG TAB.ER.24H 1000 MG PO (20:19)
[2024-03-05] MEDS: Morphine Sulfate ER 30 MG TABLET.ER PO (20:20)
[2024-03-05] MEDS: dexAMETHasone 4 MG TABLET PO (20:20)
--- NOTE | 2024-03-05 20:46 | PC.NURSE ---
staff electronic warfare officer at bedside; pt medicated per sep. tolerated po intake. pt resting comfortably at this time, vitals as documented. pt refused gabapentin as states makes her feel weird when also taking flexeril and morphine. pt ambulatory with steady gait denies dizziness at this time. sinus tachy on monitor and pt states this is baseline for her. ivf infusing via powerport. call bernard within reach.
[2024-03-05 21:50] LABS: Glucose, Whole Blood 258 mg/dL (60-115)
--- NOTE | 2024-03-05 22:12 | PC.NURSE ---
poc 268, pt medicated per sep. hospital bed provided for comfort. pt coloring in bed. call bernard within reach.
[2024-03-06] MEDS: 0.9 % Sodium Chloride 1,000 ML 100 ML IVCONT (02:10)
[2024-03-06 05:17] VITALS: BP 126/81; PULSE 91; RESP 18; TEMP 36.5; O2SAT 96
[2024-03-06 06:04] LABS: MANUAL DIFF FLAG NO
[2024-03-06 06:08] LABS: Basophils Percent Auto 0.4 % (0-2); Hematocrit 40.9 % (37.0-47.0); Hemoglobin 13.6 g/dl (12.0-16.0); Lymphocytes Percent Auto 38.3 % (20-40); Mean Corpuscular HGB Conc 33.3 g/dl (31.0-35.0); Mean Corpuscular Hemoglobin 29.5 pg (27.0-33.0); Mean Corpuscular Volume 88.7 fL (80.0-98.0); Mean Platelet Volume 9.7 fL (9.4-12.3); Monocytes Absolute Auto 0.2 X10*3/uL (0.1-1.2); Monocytes Percent Auto 7.5 % (2-11); Neutrophils Absolute Auto 1.4 x10*3/uL (2.0-8.3); Neutrophils Percent Auto 53.8 % (45-73); Platelet Count 142 X10*3/uL (160-400); Red Blood Count 4.61 X10*6/uL (4.20-5.50); Red Cell Distribution Width 14.8 % (11.0-16.0)
[2024-03-06 06:09] LABS: White Blood Count 2.5 X10*3/uL (4.8-10.8)
[2024-03-06 06:23] LABS: Alanine Aminotransferase 37 U/L (0-31); Albumin Level 3.6 g/dL (3.5-5.0); Alkaline Phosphatase 108 U/L (39-117); Anion Gap 13 (12-20); Aspartate Amino Transferase 33 U/L (5-31); Bilirubin Total 0.2 mg/dL (0.0-1.0); Blood Urea Nitrogen 6 mg/dL (9-16); Calcium 9.3 mg/dL (8.4-10.2); Carbon Dioxide 24 mmol/L (22-29); Chloride 108 mmol/L (96-108); Creatinine Clr Calc Pharmacy 115.5; Estimated Glomerular Filt Rate > 60; Glucose Random 196 mg/dL (60-115); Potassium 4.1 mmol/L (3.3-5.1); Sodium 141 mmol/L (135-145); Total Protein 6.5 g/dL (6.5-8.0)
[2024-03-06] MEDS: Omeprazole 20 MG CAPSULE.DR PO (06:43)
[2024-03-06 07:28] LABS: Glucose, Whole Blood 147 mg/dL (60-115)
--- NOTE | 2024-03-06 07:46 | P.DS_ITS ---
DS: Providers Provider Date of Service: 03/06/24 Date of admission: 03/05/24 15:33 Primary care physician: ANIL Vega DS: Diagnosis Discharge Diagnosis (1) COVID-19: Status: Acute (2) Syncope and collapse: Status: Acute DS: Summary Hospital Course Hospital Course: 49 year old women presented to the ED after a fall at her oncology office. She stated that she was walking in but walking fast and she felt her left leg suddenly stiffened up and she grabbed for the side rail on the wall but could not get it and lost her balance and fell. She denied any loss of consciousness. She reported that she was able to roll over and was helped up from other people around. She denied any chest pain, headache, visual changes, shortness to breath, head trauma. She reported that she had not been feeling well recently and she did have a positive COVID test. She was also on chemotherapy currently. Overall, all diagnostic imaging studies were negative including head CT, cervical spine CT, knee and chest x-rays. All her labs were within acceptable limits. Blood pressure stable. Patient reports that she has been eating and drinking okay but again just feeling under the weather recently. EKG showed normal sinus rhythm with no ischemic changes noted. Patient was given Tylenol, melatonin, Tums, magnesium hydroxide, 1 L of IV fluid in the ER. She will be placed on observation for management of syncope/fall 49-year-old woman placed on observation after mechanical fall on her way to an appointment. Overnight there was no arrhythmia noted on telemetry, EKG showed normal sinus rhythm. Patient had no complaints of chest pain, shortness breath, headache, visual changes. She has been ambulating. All diagnostic imaging were negative. Appetite has been good. Labs all within acceptable limits. Plan is to discharge patient home to follow up with her primary care provider outpatient and follow up with her next scheduled chemotherapy appointments. COVID positive. She has had no hypoxia during hospitalization. Patient should follow CDC guidelines for COVID-19 Diabetes mellitus type 2. Continue home medications Asthma. No exacerbation during hospitalizations. Continue albuterol Mental health. Continue home medications Time Attestation Discharge Coordination Time (in mins): 30 Quality: Safe Use of Opioids Does Pt have an Active Cancer Diagnosis on the Problem List?: No Quality: Stroke Does the patient have a stroke diagnosis?: No Physical Exam Vital Signs: Vital Signs: Last Vital Signs Temp 97.7 F 03/06/24 05:17 Pulse 91 03/06/24 05:17 Resp 18 03/06/24 05:17 BP 126/81 03/06/24 05:17 Pulse Ox 96 03/06/24 05:17 O2 Del Method Room Air 03/06/24 05:17 BMI result Body Mass Index 39.2 Appearing in no acute distress head is normocephalic atraumatic eyes pupils are PERRLA sclera is anicteric mouth throat mucous membranes are intact and moist neck is supple no lymphadenopathy, no JVD noted lung sounds are clear to auscultation heart regular rate rhythm, clear S1, S2 positive bowel sounds, abdomen is soft, nontender neuro patient is alert x3, no focal deficits DS: Data Data Completed and Pending Completed studies during hospitalization [Text1]: Procedures Excision of Sigmoid Colon, Via Natural or Artificial Opening Endoscopic, Diagnostic (10/19/23) Transfusion of Nonautologous Red Blood Cells into Peripheral Vein, Percutaneous Approach (11/01/23) Labs on day of discharge: Laboratory Results - last 24 hr 03/05/24 03/05/24 03/05/24 10:46 11:08 16:42 WBC 4.5 L RBC 4.75 Hgb 14.2 Hct 42.0 MCV 88.4 MCH 29.9 MCHC 33.8 RDW 14.6 Plt Count 138 L MPV 9.8 Immature Gran % (Auto) 0.0 Neut % (Auto) 45.9 Lymph % (Auto) 34.1 Leslie % (Auto) 15.1 H Eos % (Auto) 4.5 H Baso % (Auto) 0.4 Lymph # (Auto) 1.5 Leslie # (Auto) 0.7 Eos # (Auto) 0.2 Baso # (Auto) 0.0 Abs Immat Gran (auto) 0.00 Absolute Neuts (auto) 2.1 Absolute Nucleated RBC 0.000 Nucleated RBC % (auto) 0.0 Sodium 140 Potassium 3.3 Chloride 107 Carbon Dioxide 28 Anion Gap 8 L BUN 7 L Creatinine 0.65 Estim Creat Clear Calc 120.9 Estimated GFR > 60 POC Glucose 161 H Random Glucose 159 H Calcium 9.5 Total Bilirubin 0.4 Direct Bilirubin 0.1 AST 38 H ALT 38 H Alkaline Phosphatase 113 Troponin I High Sens < 2.7 B-Natriuretic Peptide 12 Total Protein 6.5 Albumin 3.6 Lipase 86 H Urine Color Yellow Urine Appearance Clear Urine pH 6.5 Ur Specific [place] 1.010 Urine Protein Negative Urine Glucose (UA) 100 H Urine Ketones Negative Urine Blood Negative Urine Nitrite Negative Ur Leukocyte Esterase Negative Influenza Type A (PCR) NEGATIVE Influenza Type B (PCR) NEGATIVE RSV RNA Qual (PCR) NEGATIVE SARS-CoV-2 RNA (RT-PCR) POSITIVE A 03/05/24 03/06/24 03/06/24 21:38 05:16 07:23 WBC 2.5 L RBC 4.61 Hgb 13.6 Hct 40.9 MCV 88.7 MCH 29.5 MCHC 33.3 RDW 14.8 Plt Count 142 L MPV 9.7 Immature Gran % (Auto) 0.0 Neut % (Auto) 53.8 Lymph % (Auto) 38.3 Leslie % (Auto) 7.5 Eos % (Auto) 0.0 Baso % (Auto) 0.4 Lymph # (Auto) 1.0 L Leslie # (Auto) 0.2 Eos # (Auto) 0.0 Baso # (Auto) 0.0 Abs Immat Gran (auto) 0.00 Absolute Neuts (auto) 1.4 L Absolute Nucleated RBC 0.000 Nucleated RBC % (auto) 0.0 Sodium 141 Potassium 4.1 D Chloride 108 Carbon Dioxide 24 Anion Gap 13 BUN 6 L Creatinine 0.68 Estim Creat Clear Calc 115.5 Estimated GFR > 60 POC Glucose 258 H 147 H Random Glucose 196 H Calcium 9.3 Total Bilirubin 0.2 Direct Bilirubin AST 33 H ALT 37 H Alkaline Phosphatase 108 Troponin I High Sens B-Natriuretic Peptide Total Protein 6.5 Albumin 3.6 Lipase Urine Color Urine Appearance Urine pH Ur Specific [place] Urine Protein Urine Glucose (UA) Urine Ketones Urine Blood Urine Nitrite Ur Leukocyte Esterase Influenza Type A (PCR) Influenza Type B (PCR) RSV RNA Qual (PCR) SARS-CoV-2 RNA (RT-PCR) Discharge Plan Discharge Anticipated Discharge Date/Time: 03/06/24 07:38 Patient Disposition: Left Against Medical Advice Discharge Diagnosis: Mechanical fall COVID-19 Referrals: Regina Barr PA [Primary Care Provider] - 1 Week Discharge Medications: Continued Vitron-C 65 mg iron- 125 mg tablet,delayed release (DR/EC) 1 tab PO DAILY 90 Days Qty: 90 0RF Rx Instructions: swallow whole; do not chew/break/dissolve/open minocycline 100 mg Capsule 100 mg PO Q12H Qty: 60 0RF atorvastatin 40 mg tablet 40 mg PO DAILY gabapentin 600 mg tablet 600 mg PO BEDTIME rizatriptan 10 mg tablet 10 mg PO DAILY MRX1 PRN (Reason: migraine) amitriptyline 50 mg tablet 50 mg PO BEDTIME buspirone 10 mg tablet 10 mg PO BID PRN (Reason: Anxiety) metformin 500 mg tablet extended release 24 hr 1,000 mg PO BID bupropion HCl 300 mg tablet extended release 24 hr 300 mg PO DAILY albuterol sulfate 2.5 mg /3 mL (0.083 %) solution for nebulization 3 mg inhalation Q4H PRN (Reason: breathing) dexamethasone 4 mg Tablet 4 mg PO BID Qty: 60 3RF Rx Instructions: Take 4 mg p.o. b.i.d. for 2 days following chemotherapy with each cycle Q 2 weekly cholecalciferol (vitamin D3) 125 mcg (5,000 unit) Capsule 125 mcg PO DAILY Qty: 90 3RF morphine 15 mg tablet 15 mg PO Q8H PRN (Reason: moderate pain (scale score 5-6)) Qty: 30 0RF Rx Instructions: Partial Fill upon patient request. morphine [MS Contin] 30 mg Tablet Extended Release 30 mg PO Q12H Qty: 60 0RF Rx Instructions: Partial Fill upon patient request. ondansetron 8 mg tablet,disintegrating 8 mg PO Q8H PRN (Reason: Nausea And Vomiting) albuterol sulfate 90 mcg/actuation aerosol powdr breath activated 2 inh inhalation Q6H PRN (Reason: shortness of breath or wheezing) cetirizine 10 mg tablet 10 mg PO DAILY pantoprazole 40 mg tablet,delayed release (DR/EC) 40 mg PO DAILY bupropion HCl 150 mg tablet extended release 24 hr 150 mg PO DAILY fluticasone propionate 50 mcg/actuation spray,suspension 2 spray intranasal BEDTIME montelukast 10 mg tablet 10 mg PO DAILY triamcinolone acetonide 0.025 % lotion 1 appl topical BID PRN (Reason: itch) cyclobenzaprine 5 mg tablet 5 mg PO TID Discharge Orders: Discharge Order (Routine); Ordered 03/06/24 Ordered By: Davina Shannon Diet: Advance to usual diet Activity on Discharge: As tolerated Print Language: Luxembourgish Care Plan Goals: Please follow CDC guidelines for covid 19 Health Concerns: Mechanical fall COVID-19 Plan of Treatment: Follow-up with primary care provider as needed Follow up with next scheduled chemotherapy Take all medications as prescribed Assessment: See discharge summary
--- NOTE | 2024-03-06 08:24 | MHC.CM.PN ---
Patient left AMA before being seen by case management.
[2024-03-06] MEDS: Morphine Sulfate ER 30 MG TABLET.ER PO (08:31)
[2024-03-06] MEDS: buPROPion HCl XL 300 MG TAB.ER.24H PO (08:31)
[2024-03-06] MEDS: metFORMIN HCl ER 500 MG TAB.ER.24H 1000 MG PO (08:31)
[2024-03-06] MEDS: buPROPion HCl XL 150 MG TAB.ER.24H PO (08:31)
[2024-03-06] MEDS: Cyclobenzaprine HCl 5 MG TABLET PO (08:32)
[2024-03-06] MEDS: Atorvastatin Calcium 40 MG TABLET PO (08:32)
[2024-03-06] MEDS: Loratadine 10 MG TABLET PO (08:32)
[2024-03-06] MEDS: Montelukast Sodium 10 MG TABLET PO (08:32)
[2024-03-06] MEDS: dexAMETHasone 4 MG TABLET PO (08:32)
[2024-03-06] MEDS: Cholecalciferol (Vitamin D3) 25 MCG TABLET 125 MCG PO (08:32)
--- NOTE | 2024-03-06 08:35 | MHC.CM.PN ---
Patient has left AMA.
[2024-03-06] MEDS: 0.9 % Sodium Chloride Flush 3 ML SYRINGE IVFLUSH (09:52)
[2024-03-06 10:17] VITALS: BP 126/85; PULSE 85; RESP 18; TEMP 36.8; O2SAT 98
--- NOTE | 2024-03-06 10:43 | PC.NURSE ---
the pt did not get a heparin flush of her port on discharge. I contacted Alida from oncology and she stated that it was not necessary to call the pt back to do so.
== END 2024-03-06 10:15 | disposition home or self-care (01) ==
LOC: HO.ED 11:50 → HO.EDOVER 15:36
PROVIDERS: Admitting Provider Nurse Practitioner Acute Care; Emergency Provider Emergency Medicine; PCP Physician Assistant Medical; Visit Provider Nurse Practitioner Acute Care
DX: U07.1 COVID-19 (principal); R55 Syncope and collapse; S09.93XA Unspecified injury of face, initial encounter; S19.9XXA Unspecified injury of neck, initial encounter; W19.XXXA Unspecified fall, initial encounter; Y93.9 Activity, unspecified; Y92.9 Unspecified place or not applicable; Y99.9 Unspecified external cause status; M54.2 Cervicalgia; M25.562 Pain in left knee; E11.9 Type 2 diabetes mellitus without complications; D64.9 Anemia, unspecified; E78.5 Hyperlipidemia, unspecified; J45.20 Mild intermittent asthma, uncomplicated; Z53.29 Procedure and treatment not carried out because of patient's decision for other reasons
CPT/HCPCS: 0241U; 36415; 70450; 71045; 72125; 73560; 80048; 80053; 80076; 81003; 82947; 83690; 83880; 84484; 85025; 93005; 96360; 96361; 96372; 99222; 99285; J1650; J8540

== ENCOUNTER → 2024-03-05 10:13 | Outpatient (BNV) | payer OTHER, SELFPAY | PROVIDERS: Admitting Provider Nurse Practitioner Acute Care; Emergency Provider Emergency Medicine; PCP Physician Assistant Medical; Visit Provider Internal Medicine | DX: R55 Syncope and collapse (principal) | CPT/HCPCS: 93010 ==

== ENCOUNTER → 2024-03-05 15:33 | Outpatient (BNV) | payer OTHER, SELFPAY | PROVIDERS: Admitting Provider Nurse Practitioner Acute Care; Emergency Provider Emergency Medicine; PCP Physician Assistant Medical; Visit Provider Nurse Practitioner Acute Care | DX: U07.1 COVID-19 (principal); R55 Syncope and collapse | CPT/HCPCS: 99223; 99238 ==

== ENCOUNTER 2024-03-14 07:37 | Outpatient (REF) | payer OTHER, SELFPAY ==
--- NOTE | ~2024-03-14 | CT_ITS ---
EXAMINATION: CT ABDOMEN AND PELVIS WITH CONTRAST CLINICAL INFORMATION: Rectal cancer with liver metastasis, follow-up COMPARISON: CT abdomen and pelvis from 10/19/2023 TECHNIQUE: Multidetector volumetric images were obtained from the superior aspect of the liver through the pubic symphysis following administration 85 mL of Omnipaque 350 intravenous contrast. Sagittal and coronal reformatted images were obtained on the technologist's workstation. Oral contrast: Yes This CT examination was performed using dose optimization techniques as appropriate, variously including the following: *Automated exposure control *Adjustment of mA and/or kV according to patient size (this includes techniques or standardized protocols for targeted exams where dose is matched to indication/reason for exam; i.e. extremities or head) *Use of iterative reconstruction technique DLP: 679 mGy-cm FINDINGS: LUNG BASES: The visualized lung bases are unremarkable. LIVER, GALLBLADDER, AND BILIARY TREE: Previously seen hypodense masses, previously occupying nearly the entire left hepatic lobe have markedly decreased in size and overall density. There are in numerable hypodense nodules still seen throughout the left lobe of the liver. The largest area seen within segment 2 measuring 5.1 x 4.3 cm, previously measuring approximately 10.1 x 9.2 cm. There are a few scattered smaller subcentimeter hypodensities are also seen within the right lobe of the liver which have also decreased in size. The gallbladder is unremarkable with no evidence of radiopaque gallstones, gallbladder wall thickening, or obvious pericholecystic inflammatory changes. PANCREAS: Unremarkable. SPLEEN: Unremarkable. ADRENAL GLANDS: Unremarkable. KIDNEYS AND URETERS: Focal scarring is again seen within the right mid kidney. The kidneys are otherwise normal in size, shape, and attenuation. No hydronephrosis, hydroureter, or calculi seen. No perinephric stranding. BLADDER: Unremarkable. GASTROINTESTINAL TRACT: The small bowel are unremarkable. The appendix is unremarkable. Previously seen circumferential wall thickening in the sigmoid colon has markedly improved. There is some mild residual mucosal wall thickening. ABDOMINAL WALL: No significant hernia is appreciated. LYMPH NODES: Right internal iliac lymph node along the pelvic sidewall measures 1.7 x 0.9 cm, previously measuring 1.7 x 1.2 cm VASCULAR: Unremarkable. PELVIC VISCERA: The uterus and adnexa are unremarkable. OSSEOUS STRUCTURES: Unremarkable. CT/CT abdomen pelvis w IV con IMPRESSION: 1. Marked interval improvement in the hepatic metastatic disease. 2. Marked interval improvement in the circumferential wall thickening of the sigmoid colon. 3. Right iliac lymph node minimally decreased in size Fleischner guidelines were followed. Electronically signed by: Medardo Michael MD 03/19/2024 09:25 PM EDT RP
[2024-03-14] MEDS: iohexoL 350 MG/ML 75 ML INFUS..BTL 85 ML IV (11:15)
[2024-03-14] MEDS: Barium Sulfate Oral (Vanilla) 450 ML ORAL.SUSP 900 ML PO (11:15)
== END 2024-03-14 07:38 | disposition home or self-care (01) ==
LOC: HO.CT 07:37
PROVIDERS: PCP Physician Assistant Medical; Visit Provider Internal Medicine Medical Oncology
DX: C18.9 Malignant neoplasm of colon, unspecified (principal); C78.7 Secondary malignant neoplasm of liver and intrahepatic bile duct
CPT/HCPCS: 74177; Q9967

== ENCOUNTER 2024-06-11 12:34 | Outpatient (REF) | payer OTHER, SELFPAY ==
--- NOTE | ~2024-06-11 | CT_ITS ---
EXAMINATION: CT CHEST WITH CONTRAST CLINICAL INFORMATION: Colon cancer on chemotherapy. COMPARISON: CT angiogram chest dated November 01, 2023. TECHNIQUE: Multidetector volumetric CT imaging of the chest was obtained after the administration of 85 mL of Omnipaque 350 intravenous contrast without immediate adverse reactions. Axial MIP volume rendering provided. Sagittal and coronal reformatted images were obtained. This CT examination was performed using dose optimization techniques as appropriate, variously including the following: *Automated exposure control *Adjustment of mA and/or kV according to patient size (this includes techniques or standardized protocols for targeted exams where dose is matched to indication/reason for exam; i.e. extremities or head) *Use of iterative reconstruction technique DLP: 182.8 mGy-cm FINDINGS: [employer]: No gross pulmonary nodules. No gross acute airspace disease. No bronchiectasis. No honeycombing. Respiratory where is patent. No pleural effusion. No pneumothorax. No lymphadenopathy, mediastinum, pulmonary hilum or axillary. No aneurysm or dissection, thoracic aorta. No pericardial effusion. Heterogeneous nodular thyroid gland. Metallic reservoir in the anterior medial right upper chest wall, fat planes likely a Port-A-Cath and the tip ends in the SVC. There is a focal decreased enhancement sloughed low density in the dome of the left hepatic lobe without distortion of the hepatic/portal vein vessels. No acute fracture or listhesis in the axial skeleton. No lytic or blastic lesions. . CT/CT chest w IV con IMPRESSION: No metastatic disease, intrathoracic. No acute airspace disease. Probable focal fatty infiltration, left hepatic lobe. Consider multinodular goiter. Fleischner guidelines were followed. Electronically signed by: Walter Boles MD 06/12/2024 11:39 AM [facility]
--- NOTE | ~2024-06-11 | CT_ITS ---
EXAMINATION: CT ABDOMEN AND PELVIS WITH CONTRAST CLINICAL INFORMATION: Follow-up colon cancer, on chemotherapy. COMPARISON: 03/14/2024. TECHNIQUE: Multidetector volumetric images were obtained from the superior aspect of the liver through the pubic symphysis following administration 85 mL of Omnipaque 350 intravenous contrast. Sagittal and coronal reformatted images were obtained on the technologist's workstation. Oral contrast: No This CT examination was performed using dose optimization techniques as appropriate, variously including the following: *Automated exposure control *Adjustment of mA and/or kV according to patient size (this includes techniques or standardized protocols for targeted exams where dose is matched to indication/reason for exam; i.e. extremities or head) *Use of iterative reconstruction technique DLP: mGy-cm FINDINGS: LUNG BASES: Mild respiratory motion artifact , otherwise clear. No effusions or nodules. Normal heart size. LIVER, GALLBLADDER, AND BILIARY TREE: -A confluent mass immediately inferior to the falciform ligament spanning segment III/4b (series 3, image 30) has undergone mild retraction and is slightly smaller. -Otherwise, There has been no change in the appearance of numerous hypoattenuating nodules/masses seen throughout the left lobe of the liver. The largest area seen within segment 2 again measures approximately 5.1 x 4.3 cm, previously the same. There are a few scattered smaller subcentimeter hypodensities also seen within the right lobe of the liver which have also remained unchanged. -The gallbladder is unremarkable with no evidence of radiopaque gallstones, gallbladder wall thickening, or obvious pericholecystic inflammatory changes. -There is no biliary dilatation or obstruction. -Patent portal vein. PANCREAS: Unremarkable. SPLEEN: Unremarkable. ADRENAL GLANDS: Unremarkable. KIDNEYS AND URETERS: -Focal scarring again seen right mid kidney. Kidneys otherwise normal in size, shape, and attenuation. No hydronephrosis, hydroureter, or calculi. -Ureters are normal in caliber. BLADDER: Unremarkable. GASTROINTESTINAL TRACT: -There is a small hiatus hernia at the GE junction, type I. Mild thickening of the fundus of the stomach may be artifactual from contrast admixing. -Normal duodenal sweep, with a few small segment 4 diverticulum present. -Normal small bowel. -Colon has a normal course and caliber and opacifies with oral contrast normally. No new masses evident. -Previously seen segmental thickening in the region of the mid sigmoid persists but only a minimal amount of residual wall thickening present (series 3, image 52). -No rectal abnormality. ABDOMINAL WALL: No significant hernia is appreciated. LYMPH NODES: -No significant interval change in a partially necrotic appearing 1.7 x 1.0 cm right pelvic sidewall lymph node (series 3, image 67). -No new lymph nodes identified. VASCULAR: Unremarkable. PELVIC VISCERA: -No adnexal masses. -Small 0.9 cm fibroid is suspected in the uterine fundus. OSSEOUS STRUCTURES: No lytic or blastic bone lesions. No change. CT/CT abdomen pelvis w IV con IMPRESSION: 1. Hepatic hypodense metastases are either minimally improved or unchanged. There are no new or enlarging metastases. 2. Stable enlarged partially necrotic lymph node right pelvic sidewall measuring 1.7 x 1.0 cm. No new lymphadenopathy. 3. Minimal persistent short segment wall thickening in the mid sigmoid. 4. Otherwise stable examination. Ancillary findings as discussed. Electronically signed by: Sergio Irby MD 06/14/2024 05:00 PM [facility]
[2024-06-11] MEDS: Barium Sulfate Oral (Vanilla) 450 ML ORAL.SUSP 900 ML PO (15:38)
[2024-06-11] MEDS: iohexoL 350 MG/ML 100 ML INFUS..BTL 85 ML IV (15:38)
== END 2024-06-11 12:35 | disposition home or self-care (01) ==
LOC: HO.CT 12:34
PROVIDERS: PCP Physician Assistant Medical; Visit Provider Internal Medicine Medical Oncology
DX: C18.9 Malignant neoplasm of colon, unspecified (principal); R06.00 Dyspnea, unspecified
CPT/HCPCS: 71260; 74177; Q9967

== ENCOUNTER → 2024-06-11 12:36 | Outpatient (BNV) | payer OTHER, SELFPAY | PROVIDERS: PCP Physician Assistant Medical; Visit Provider Radiology Diagnostic Radiology | DX: C18.9 Malignant neoplasm of colon, unspecified (principal) | CPT/HCPCS: 71260; 74177 ==

== ENCOUNTER 2024-09-02 12:26 | Outpatient (REF) ==
[2024-09-02] MEDS: iohexoL 350 MG/ML 75 ML INFUS..BTL 85 ML IV (15:01)
[2024-09-02] MEDS: Barium Sulfate Oral (Mocha) 450 ML ORAL.SUSP 900 ML PO (15:02)
== END 2024-09-02 12:27 | disposition home or self-care (01) ==
LOC: HO.CT 12:26
PROVIDERS: PCP Physician Assistant Medical; Visit Provider Internal Medicine Medical Oncology
DX: C18.9 Malignant neoplasm of colon, unspecified (principal); C78.7 Secondary malignant neoplasm of liver and intrahepatic bile duct
CPT/HCPCS: 71260; 74177; Q9967

== ENCOUNTER → 2024-09-02 12:29 | Outpatient (BNV) | payer OTHER, SELFPAY | PROVIDERS: PCP Physician Assistant Medical; Visit Provider Radiology Diagnostic Radiology | DX: C18.9 Malignant neoplasm of colon, unspecified (principal); C78.7 Secondary malignant neoplasm of liver and intrahepatic bile duct | CPT/HCPCS: 71260; 74177 ==

== ENCOUNTER 2024-10-09 10:39 | Outpatient (AMB) | payer OTHER, SELFPAY ==
--- NOTE | 2024-10-09 10:40 | MHC.OFFVIS ---
Vital Signs 10/09/24 10:54 Height 5 ft 3 in Weight 231 lb BMI 40.9 Intake Visit Reasons: Colon Cancer Intake Note: This patient was referred by for colon cancer. Pt c/o; reports she has been doing chemo for 1 year, reports overall she is doing well. Certified Medical Biller Required: Yes Certified Medical Biller Language: Office Administration Services: Certified Medical Biller Present Certified Medical Biller Name: Julia Information Interpreted: non-clinical & clinical Accompanied by: Self / Same As Patient Allergies No Known Allergies Allergy (Verified 10/09/24 10:55) Medication List - Last Reconciled 10/09/24 by Severo Tim MD albuterol sulfate 3 mg inhalation Q4H PRN albuterol sulfate 90 mcg/actuation 2 inhalations inhalation Q6H PRN amitriptyline 50 mg PO BEDTIME atorvastatin 40 mg PO DAILY bupropion HCl XL 300 mg PO DAILY bupropion HCl XL 150 mg PO DAILY buspirone 10 mg PO BID PRN butenafine 1% (Lotrimin Ultra) 1 appl topical BID cetirizine 10 mg PO DAILY cholecalciferol (vitamin D3) 125 mcg PO DAILY cyclobenzaprine 5 mg PO TID dexamethasone 4 mg PO BID fluconazole 150 mg PO Q3D fluticasone propionate 50 mcg/actuation 2 sprays intranasal BEDTIME gabapentin 600 mg PO BEDTIME iron,carbonyl-vitamin C 65 mg iron- 125 mg (Vitron-C) 1 tab PO DAILY 90 days metformin ER 1,000 mg PO BID minocycline 100 mg PO Q12H montelukast 10 mg PO DAILY morphine 15 mg PO Q6H PRN morphine ER (MS Contin) 30 mg PO Q8H ondansetron 8 mg PO Q8H PRN pantoprazole 40 mg PO DAILY phenazopyridine (Pyridium) 200 mg PO TID rizatriptan 10 mg PO DAILY MRX1 PRN sulfamethoxazole-trimethoprim 800-160 mg (Bactrim DS) 1 tab PO Q12H sulfamethoxazole-trimethoprim 800-160 mg (Bactrim DS) 1 tab PO Q12H triamcinolone acetonide 0.1% 1 appl topical DAILY triamcinolone acetonide 0.025% 1 appl topical BID PRN HPI HPI Colon Cancer: Details: [age] year old female referred for colon cancer. She was diagnosed to have metastatic colon cancer last October,. She had been admitted for anemia around that time he had a colonoscopy showed a tumor from level 2225 cm in the sigmoid colon. She had multiple metastatic liver lesions as well as that time She has been undergoing chemotherapy with Dr. Rasmussen since then. She has been on FOLFOX and panitumumab therapy. Follow-up CT scan of shown decreased in the size and number of these liver lesions. She denies any significant GI complaints. She does state that she gets tired for several days after her chemotherapy. She denies weight loss. She has good oral intake. She denies abdominal pain. She does have morbid obesity, diabetes, obstructive sleep apnea and depression. [facility] Medical History Anemia Non-insulin dependent type 2 diabetes mellitus Migraines Fibromyalgia Mild intermittent asthma HLD (hyperlipidemia) Surgical History Hx of tubal ligation History of Ritchie colposuspension H/O knee surgery Family History Mother Diabetes Father Leukemia Daughter Asthma Son No problems noted. Son No problems noted. Daughter No problems noted. Paternal Grandfather Colon cancer Paternal Aunt Breast cancer Social History Household Members: Family and Children Household Members Other:: 4 Housing: Apartment Do you presently have visiting nurse or other home services: Yes Alcohol intake: current Alcohol intake frequency: does not drink Patient Tobacco Use Status: Never used Tobacco service: No Current occupational status: unemployed Review of Systems Const Denies chills and Denies fever(s) Card Denies chest pain, Reports dyspnea and Reports dyspnea on exertion Resp Denies cough, Reports dyspnea and Reports dyspnea on exertion GI Denies hematochezia and Denies change in bowel habits Denies hematuria Musc Denies back pain and Denies limited range of motion Neuro Denies focal weakness and Denies convulsions Psych Reports depression and Denies mood swings Physical Exam Const Other: Morbidly obese General: comfortable and no acute distress Orientation/consciousness: patient oriented x3 Neck Neck: Yes no lymphadenopathy Resp Auscultation: clear to auscultation bilaterally Cardio Rhythm: regular rhythm GI Other: Obese abdomen with pannus Palpation (GI): Soft to palpation, nontender and no guarding Neuro General: patient oriented x3 Assessment & Plan Assessment & Plan (1) Colon cancer metastasized to liver: Code(s): C18.9 - Malignant neoplasm of colon, unspecified; C78.7 - Secondary malignant neoplasm of liver and intrahepatic bile duct Category: Medical Plan: She has known sigmoid cancer with metastasis to the liver. She has been undergoing chemotherapy with FOLFOX and panitumumab since last year . She had a follow-up CT scan last month and this does show the presence of multiple liver lesions on both the left and the right hepatic lobes, although smaller in size and number. She does not present with obstructing symptoms At this time therefore, I am uncertain there any significant benefit to her prognosis with resection of her sigmoid for the colon cancer. She metastatic disease and these lesions are still present although improved. I therefore told her that I probably would not recommend proceeding with resection at this time. I would however follow her with serial CT scans. She says she is being arranged for opinion with a liver surgeon as well for possible treatment of her metastatic disease. I will see her again in about 2-3 months to see how she is doing and review all of her studies I will discuss the above with Dr. Rasmussen as well. I had a long discussion with the patient about the above. I have reviewed her multiple imaging studies and records from last year as well Coding Level of Care Code New Pt Level 4 (36588) Diagnoses Colon cancer metastasized to liver C18.9; C78.7
[2024-10-09 10:54] VITALS: BMI 40.9
--- OUTSIDE RECORDS SUMMARY | 2024-10-09 12:40 | XMS_ITS | Clinical Summary ---
Author Organization [facility] ity Address [address] [place] [address] Care Team Providers Care Binder And Wrapper Packer Name Role Phone Unavailable Primary Care Provider Unavailabl e Social History Tobacco Use Types Packs/Day Years Used Date Smoking Tobacco: Never Assessed Comments Unknown Sex and Gender Information Value Date Recorded Sex Assigned at Not on file Legal Sex Female 7:05 AM EST Gender Identity Not on file Sexual Orientation Not on file Plan of Treatment Health Maintenance Due Date Last Done Comments Breast Cancer Screening 1977 DTaP,Tdap,and Td Vaccines (1 - Tdap) 01/21/1996 Hepatitis B Vaccines (1 of 3 - 19+ 3-dose series) 01/21/1996 Cervical Cancer Screening: P ap Smear 1998 COVID-19 Vaccine (2023-2 5 season) 2024 Influenza Vaccine (#1) 2024 HIB Vaccines Aged Out No longer eligi ble based on patient's age to complete this topic HPV Vaccines Aged Out No longer eligi ble based on patient's age to complete this topic Hepatitis A Vaccines Aged Out No long er eligible based on patient's age to complete this topic IPV Vaccines Aged Out No longer eligi ble based on patient's age to complete this topic MMR Vaccines Aged Out No longer eligi ble based on patient's age to complete this topic Meningococcal ACWY Vaccine Aged Out N o longer eligible based on patient's age to complete this topic Meningococcal B Vacine Aged Out No lo nger eligible based on patient's age to complete this topic Pneumococcal Vaccine: Pediat rics (0 to 5 Years) and At-Risk Patients (6 to 64 Years) Aged Out No longer eligible b ased on patient's age to complete this topic RSV Immunization Patients Un clau 20 months Aged Out No longer eligible b ased on patient's age to complete this topic Varicella Vaccines Aged Out No longer eligible based on patient's age to complete this topic Advance Directives Documents on File Type Date Recorded 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
== END 2024-10-09 10:57 | disposition home or self-care (01) ==
LOC: HO.HGS 10:40
PROVIDERS: PCP Physician Assistant Medical; Visit Provider Surgery
DX: C18.9 Malignant neoplasm of colon, unspecified (principal); C78.7 Secondary malignant neoplasm of liver and intrahepatic bile duct
CPT/HCPCS: 99204

== ENCOUNTER → 2024-10-09 10:39 | Outpatient (BNVA) | payer OTHER, SELFPAY | PROVIDERS: PCP Physician Assistant Medical; Visit Provider Surgery | DX: C18.9 Malignant neoplasm of colon, unspecified (principal); C78.7 Secondary malignant neoplasm of liver and intrahepatic bile duct | CPT/HCPCS: 99202 ==

== ENCOUNTER 2024-11-07 09:02 | Outpatient (AMB) | payer OTHER, SELFPAY ==
[2024-11-07 09:07] VITALS: BP 121/65; PULSE 125; BMI 40.9
--- NOTE | 2024-11-07 09:07 | A.OFFVIS_ITS ---
Vital Signs 11/07/24 09:07 Height 5 ft 3 in Weight 231 lb BMI 40.9 BP 121/65 Blood Pressure Location Rt brachial Position Sitting Pulse 125 H Intake Visit Reasons: discuss surgery, possible resection Intake Note: Patient referred by Dr. Rasmussen for possible resection. Reports sigmoidoscopy needed to confirm tumor. Patient c/o: diarrhea with chemo therapy. Sas Programmer Remote Required: No Accompanied by: Self / Same As Patient Allergies No Known Allergies Allergy (Verified 11/07/24 09:14) HPI HPI discuss surgery, possible resection: Details: [age] year old female referred for flexible sigmoidoscopy. She was diagnosed to have metastatic colon cancer last October,. She had been admitted for anemia around that time and her colonoscopy showed a tumor from level 20-25 cm in the sigmoid colon. She had multiple metastatic liver lesions as well as that time. She has been therefore undergoing chemotherapy with Dr. Rasmussen since then. She has been on FOLFOX and panitumumab therapy. I have been requested by Dr. Rasmussen to do a follow up a flexible sigmoidoscopy to check on response to chemotherapy. She denies any significant GI complaints. She has good oral intake. She admits that chemotherapy ?wears her out?. She denies weight loss. She has good oral intake. She denies abdominal pain. She does have morbid obesity, diabetes, obstructive sleep apnea and depression. [facility] Medical History Anemia Non-insulin dependent type 2 diabetes mellitus Migraines Fibromyalgia Mild intermittent asthma HLD (hyperlipidemia) Surgical History Hx of tubal ligation History of Ritchie colposuspension H/O knee surgery Family History Mother Diabetes Father Leukemia Daughter Asthma Son No problems noted. Son No problems noted. Daughter No problems noted. Paternal Grandfather Colon cancer Paternal Aunt Breast cancer Social History Household Members: Family and Children Household Members Other:: 4 Housing: Apartment Do you presently have visiting nurse or other home services: Yes Alcohol intake: current Alcohol intake frequency: does not drink Patient Tobacco Use Status: Never used Tobacco Use of substances other than those prescribed or required for medical reasons: No Do you feel safe in your current relationship?: Yes Do you have a plan to hurt others: No Plan Patient : No service: No Current occupational status: unemployed Review of Systems Const Denies chills, Reports fatigue and Denies fever(s) Card Denies chest pain, Denies dyspnea and Reports dyspnea on exertion Resp Denies cough, Denies dyspnea and Reports dyspnea on exertion GI Denies hematochezia and Denies change in bowel habits Denies hematuria Musc Denies back pain and Denies limited range of motion Neuro Denies focal weakness and Denies convulsions Psych Denies depression and Denies mood swings Endo Reports fatigue Physical Exam Vital Signs: Last Vital Signs Pulse 125 H 11/07/24 09:07 BP 121/65 11/07/24 09:07 BMI result Body Mass Index 40.9 Const Other: Morbidly obese General: comfortable and no acute distress Orientation/consciousness: patient oriented x3 Neck Neck: Yes no lymphadenopathy Resp Auscultation: clear to auscultation bilaterally Cardio Rhythm: regular rhythm GI Palpation (GI): Soft to palpation, nontender and no guarding Neuro General: patient oriented x3 Assessment & Plan Assessment & Plan (1) Colon cancer metastasized to liver: Code(s): C18.9 - Malignant neoplasm of colon, unspecified; C78.7 - Secondary malignant neoplasm of liver and intrahepatic bile duct Category: Medical Plan: She has been undergoing chemotherapy with Dr. Rasmussen and have been asked to do a flexible sigmoidoscopy to check on response to treatment I reviewed with the technique of this procedure. I explained the risks including but not limited to bleeding and perforation, as well as the benefits and alternatives. She says she understands I also explained to her that she may be a candidate for resection down the line depending on her response to chemotherapy especially with regards to her liver metastatic disease. I therefore had a long discussion with her about this. I advised her of the benefits of weight loss to decrease her perioperative risks . Coding Level of Care Code Est Pt Level 3 (28911) Diagnoses Colon cancer metastasized to liver C18.9; C78.7
--- OUTSIDE RECORDS SUMMARY | 2024-11-07 09:53 | XMS_ITS | Clinical Summary ---
Author Organization 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
== END 2024-11-07 10:14 | disposition home or self-care (01) ==
LOC: HO.HGS 09:02
PROVIDERS: PCP Physician Assistant Medical; Visit Provider Surgery
DX: C18.9 Malignant neoplasm of colon, unspecified (principal); C78.7 Secondary malignant neoplasm of liver and intrahepatic bile duct
CPT/HCPCS: 99213

== ENCOUNTER → 2024-11-07 09:02 | Outpatient (BNVA) | payer OTHER, SELFPAY | PROVIDERS: PCP Physician Assistant Medical; Visit Provider Surgery | DX: C18.9 Malignant neoplasm of colon, unspecified (principal); C78.7 Secondary malignant neoplasm of liver and intrahepatic bile duct | CPT/HCPCS: 99212 ==

== ENCOUNTER 2024-11-26 10:40 | Outpatient (REF) | payer OTHER, SELFPAY ==
--- NOTE | ~2024-11-26 | PE_ITS ---
EXAMINATION: FLUORINE-18 FDG PET/CT SCAN CLINICAL INFORMATION: Colon cancer with metastatic cyst liver TECHNIQUE: 63 minutes following the intravenous administration of 19.3 mCi of fluorine 18 FDG, images from the skull base to proximal thighs were obtained using a combined PET/CT scanner with CT scan based attenuation correction. No oral or intravenous contrast was administered. Transverse, coronal, sagittal, and volume reconstruction projections were obtained. The patient's blood glucose as determined by a finger stick, was 185 mg/dL immediately prior to injection. The radiotracer was injected intravenously through left hand, without any complications. Total CT exam dose-length product 1239 mGy-cm. * These CT images were obtained using dose optimization techniques as appropriate, variously including the following: Automated exposure control * Adjustment of mA and/or kV according to patient size (this includes techniques or standardized protocols for targeted exams where dose is matched to indication/reason for exam; i.e. extremities or head) * Use of iterative reconstruction technique COMPARISON: None available. FINDINGS: HEAD AND NECK: No abnormal radiotracer uptake. No large intracranial hemorrhage, acute territorial infarct or significant shift of midline structures. CHEST: Ports and Devices: None Lungs: No abnormal radiotracer uptake. Pleura: No significant pleural effusion. Lymph Nodes: No tracer-avid mediastinal, hilar or internal mammary or axillary lymphadenopathy. Mediastinum: There is no significant pericardial effusion/thickening. There is a right port catheter with its tip in distal SVC. Breasts/Chest Wall: No abnormal radiotracer uptake. ABDOMEN/PELVIS: Liver/Biliary System: There is a solitary radiotracer activity seen along the medial aspect of segment 5 right hepatic lobe. The lesion is not visualized on the present on the previous CT. Previously seen hypodensities in the central liver right hepatic lobe and left hepatic lobe are not metabolically active Pancreas: Normal.Unremarkable. Spleen: No abnormal radiotracer uptake. No evidence of splenomegaly. Adrenal Glands: No abnormal radiotracer uptake. Kidneys: No hydronephrosis, hydroureter or renal calculi bilaterally. Bowel: There is no significant bowel dilatation to suggest obstruction. Lymph Nodes: No tracer avid retroperitoneal, mesenteric or pelvic and/or groin lymphadenopathy. Pelvic Organs: The urinary bladder is underdistended. MUSCULOSKELETAL: No abnormal metabolic activity seen. VASCULAR: Unremarkable THE SITE(S) OF MOST INTENSE FDG AVIDITY AND SUV MAX: PET/PET CT fusion skull to thigh IMPRESSION: Focal metabolic activity right hepatic lobe segment 5 medially. It is not visualized on the previous exam. The present CT it appears hyperdense. Previously seen lesions in the left and right hepatic lobe do not show FDG activity at this time. No additional areas of FDG activity seen in the liver: No evidence additional FDG activity seen on whole body PET scan. Electronically signed by: Jai Mckeon MD 11/27/2024 07:37 AM EDT
--- OUTSIDE RECORDS SUMMARY | 2024-11-26 12:16 | XMS_ITS | Clinical Summary ---
[facility] Organization [facility] Address [address] [place] [address] Care Team Providers Care Internal Medicine Physician Assistant Name Role Phone Unavailable Primary Care Provider [...] Documents on File Type Date Recorded Patient Rand Sewer Expl anation Health Care Decision (hx) 09/17/2020 AD ROMERO DIRECTIVE Health Care Decision (hx) 09/17/2020 AD ROMERO DIRECTIVE Health Care Decision (hx) 09/11/2020 AD ROMERO DIRECTIVE
== END 2024-11-26 10:41 | disposition home or self-care (01) ==
LOC: HO.PET 10:40
PROVIDERS: PCP Physician Assistant Medical; Visit Provider Internal Medicine Medical Oncology
DX: Z13.89 Encounter for screening for other disorder (principal)

== ENCOUNTER 2024-12-11 13:03 | Day surgery (SDC) | payer OTHER, SELFPAY ==
[2024-11-27 11:49] VITALS: BMI 40.9
--- NOTE | 2024-11-28 10:23 | P.CONAN_ITS ---
Documented by User: Belen Schuster NP 12/09/24 15:56 HPI - Anesthesia Eval Consult details Narrative: 49yo F for EUA, Sigmoidoscopy Flexible Colon ca with liver mets - dx'd 10/2023 with chemo since then. Following with [facility] oncology [facility] Active Problems Active Problems: All Active Problems COVID-19 (Acute) Colon cancer (Acute) Tachycardia (Acute) Leukocytosis (Acute) Colon cancer metastasized to liver (Acute) Abnormal CT scan, liver (Acute) Colonic mass (Acute) Urinary tract infection (Acute) Arthritis (Acute) MONICA (obstructive sleep apnea) (Acute) Diabetes (Acute) Morbid obesity (Acute) Past Medical History Medical History Colon cancer Anemia Non-insulin dependent type 2 diabetes mellitus Migraines Fibromyalgia Mild intermittent asthma HLD (hyperlipidemia) Family History Family History Mother Diabetes Father Leukemia Daughter Asthma Son No problems noted. Son No problems noted. Daughter No problems noted. Paternal Grandfather Colon cancer Paternal Aunt Breast cancer Surgical History Surgical History Hx of tubal ligation History of Ritchie colposuspension H/O knee surgery History of Problems with Anesthesia: No Social History Social History Household Members: Family and Children Household Members Other:: 4 Housing: Apartment Are you a primary residential care facility manager to a significant other at home: No Do you presently have visiting nurse or other home services: No Alcohol intake: current Alcohol intake frequency: does not drink Patient Tobacco Use Status: Never used Tobacco Have you been hit, kicked, punched, or otherwise hurt by someone within the past year? If so, by whom?: No Are you DNR?: No Advance Directives: No Advance Directives Information Provided: Yes Poor oral hygiene: No service: No Current occupational status: unemployed Meds Allergies Allergy/AdvReac Type Severity Reaction Status Date / Time No Known Allergies Allergy Verified 12/11/24 13:14 Home Medications ?Medication ?Instructions ?Recorded ?Confirmed ?Last Taken ?Type bupropion HCl 150 mg 24 hr tablet, 150 mg PO DAILY 09/2112/11/24 03/04/24 History extended release cetirizine 10 mg tablet 10 mg PO DAILY allergies 04/13/23 12/11/24 03/04/24 History cyclobenzaprine 5 mg tablet 5 mg PO TID Muscle Spasm 04/13/23 12/11/24 03/04/24 History fluticasone propionate 50 2 spray intranasal BEDTIME 04/13/23 12/11/24 03/04/24 History mcg/actuation nasal spray,suspension montelukast 10 mg tablet 10 mg PO DAILY 04/13/23 12/11/24 03/04/24 History pantoprazole 40 mg tablet,delayed 40 mg PO DAILY 04/13/23 12/11/24 03/04/24 History release triamcinolone acetonide 0.025 % 1 appl topical BID PRN itch 04/13/23 12/11/24 Unknown History lotion albuterol sulfate 2.5 mg/3 mL 3 mg inhalation Q4H PRN breathing 10/19/23 12/11/24 Unknown History (0.083 %) solution for nebulization atorvastatin 40 mg tablet 40 mg PO DAILY 10/19/23 12/11/24 03/04/24 History bupropion HCl 300 mg 24 hr tablet, 300 mg PO DAILY 10/19/23 12/11/24 03/04/24 History extended release metformin 500 mg tablet,extended 1,000 mg PO BID diabetes mellitus 10/19/23 12/11/24 12/11/24 History release 24 hr rizatriptan 10 mg tablet 10 mg PO DAILY MRX1 PRN migraine 10/19/23 12/11/24 10/18/23 History albuterol sulfate 90 mcg/actuation 2 inh inhalation Q6H PRN shortness 03/05/24 12/11/24 Unknown History breath activated powder inhaler of breath or wheezing Exam Height,Weight and Vital Signs: Height 5 ft 3 in Weight 104.78 kg Pertinent Lab Results Pertinent Lab Results: Laboratory Tests 12/03/24 08:28 WBC 4.7 L Hgb 12.2 Hct 37.1 Plt Count 123 L Sodium 140 Potassium 3.7 Chloride 100 Carbon Dioxide 28 BUN 11 Creatinine 0.76 Narrative Narrative: EKG 2023 Vent. Rate : 084 BPM Atrial Rate : 084 BPM P-R Int : 120 ms QRS Dur : 084 ms QT Int : 358 ms P-R-T Axes : 044 024 012 degrees QTc Int : 423 ms Normal sinus rhythm Normal ECG When compared with ECG of 01-NOV-2023 13:17, Vent. rate has decreased BY 46 BPM T wave amplitude has increased in Lateral leads Assessment and Plan Assessment Anesthesia Assessment: Chart Reviewed Final Anesthetic Review History of Problems with Anesthesia: No Documented by User: Lucinda Ibarra MD 12/11/24 14:09 [facility] Past Medical History Medical History Colon cancer Anemia Non-insulin dependent type 2 diabetes mellitus Migraines Fibromyalgia Mild intermittent asthma HLD (hyperlipidemia) Family History Family History Mother Diabetes Father Leukemia Daughter Asthma Son No problems noted. Son No problems noted. Daughter No problems noted. Paternal Grandfather Colon cancer Paternal Aunt Breast cancer Family history of problems with anesthesia: No Surgical History Surgical History Hx of tubal ligation History of Ritchie colposuspension H/O knee surgery Social History Social History Household Members: Family and Children Household Members Other:: 4 Housing: Apartment Are you a primary residential care facility manager to a significant other at home: No Do you presently have visiting nurse or other home services: No Alcohol intake: current Alcohol intake frequency: does not drink Patient Tobacco Use Status: Never used Tobacco Have you been hit, kicked, punched, or otherwise hurt by someone within the past year? If so, by whom?: No Are you DNR?: No Advance Directives: No Advance Directives Information Provided: Yes Poor oral hygiene: No service: No Current occupational status: unemployed Meds Allergies Allergy/AdvReac Type Severity Reaction Status Date / Time No Known Allergies Allergy Verified 12/11/24 13:14 Home Medications ?Medication ?Instructions ?Recorded ?Confirmed ?Last Taken ?Type bupropion HCl 150 mg 24 hr tablet, 150 mg PO DAILY 04/13/23 12/11/24 03/04/24 History extended release cetirizine 10 mg tablet 10 mg PO DAILY allergies 04/13/23 12/11/24 03/04/24 History cyclobenzaprine 5 mg tablet 5 mg PO TID Muscle Spasm 04/13/23 12/11/24 03/04/24 History fluticasone propionate 50 2 spray intranasal BEDTIME 04/13/23 12/11/24 03/04/24 History mcg/actuation nasal spray,suspension montelukast 10 mg tablet 10 mg PO DAILY 04/13/23 12/11/24 03/04/24 History pantoprazole 40 mg tablet,delayed 40 mg PO DAILY 04/13/23 12/11/24 03/04/24 History release triamcinolone acetonide 0.025 % 1 appl topical BID PRN itch 04/13/23 12/11/24 Unknown History lotion albuterol sulfate 2.5 mg/3 mL 3 mg inhalation Q4H PRN breathing 10/19/23 12/11/24 Unknown History (0.083 %) solution for nebulization atorvastatin 40 mg tablet 40 mg PO DAILY 10/19/23 12/11/24 03/04/24 History bupropion HCl 300 mg 24 hr tablet, 300 mg PO DAILY 10/19/23 12/11/24 03/04/24 History extended release metformin 500 mg tablet,extended 1,000 mg PO BID diabetes mellitus 10/19/23 12/11/24 12/11/24 History release 24 hr rizatriptan 10 mg tablet 10 mg PO DAILY MRX1 PRN migraine 10/19/23 12/11/24 10/18/23 History albuterol sulfate 90 mcg/actuation 2 inh inhalation Q6H PRN shortness 03/05/24 12/11/24 Unknown History breath activated powder inhaler of breath or wheezing Exam Airway Mallampati Class: II (missing 2 back molars) TM Dist: >3cm Neck ROM: Full Heart: rrr Lungs: cta Assessment and Plan Assessment Anesthesia Assessment: Anesthesia Plan Discussed Final Anesthetic Review Family History of Problems with Anesthesia: No NPO: Yes ASA Class: III Final Preanesthetic Review: No Changes in Pt Med Stat, Meds/Allgs Chart Reviewed and Consent Obtained/Reviewed Patient Risk: Low Procedure Risk: Low Anesthetic Plan Anesthetic Plan: MAC: Disposition: Standard PACU
[2024-12-11] MEDS: Lactated Ringers 1,000 ML 100 ML IVCONT (13:20)
[2024-12-11 13:28] LABS: Glucose, Whole Blood 193 mg/dL (60-115)
[2024-12-11 13:34] VITALS: BP 142/79; PULSE 106; RESP 18; TEMP 36.8; O2SAT 98
--- NOTE | 2024-12-11 14:13 | MHC.SHP ---
Pre-Procedural Eval Section A - 24 Hr Update-Section A only Date of Service: 12/11/24 Section B - Complete if H&P > 30 days Chief Complaint: Secondary malignant neoplasm of liver and intrahep Details of Present Illness: Has known cancer with liver metastasis, undergoing neoadjuvant treatment, for flex sig to check response to treatment Relevant Family History (Specify if Yes): No Relevant Social History: None Present Medications: see Short Stay Collaborative assessment (Sleep apneaDiabetes Obesity) Medical History: Significant History (Sleep apnea, obesity, diabetes) History of Previous Operations: No relevant previous surgery Allergies: Allergies Allergy/AdvReac Type Severity Reaction Status Date / Time No Known Allergies Allergy Verified 12/11/24 13:14 Review of Systems Sugical H&P ROS: Negative: Constitution, Cardiovascular and Respiratory Exam Surgical H&P Exam: Normal: Heart, Normal: Lungs and Normal: Abdomen Plan Diagnosis/Plan: Unchanged I have reviewed the history and physical and performed a pertinent physical examination on my patient. No changes have occurred unless specified. Time Spent With Patient Time: Total time managing care of this patient today ____ minutes.
[2024-12-11 15:00] VITALS: BP 106/69; PULSE 103; RESP 16; TEMP 36.7; O2SAT 96
--- NOTE | 2024-12-11 15:00 | W.PM.OPN ---
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 She understood the technique of the planned procedure as well as the risks, benefits, and alternatives. She was brought to the operating room and placed in left lateral decubitus position under monitored anesthesia care. A surgical time-out was done. A full digital rectal exam was done. There were no palpable anal canal lesions. The tip of the Olympus colonoscope was gently introduced through the anal orifice advanced with insufflation. At level 25 cm, we are able to see this differential lesion, with narrowing of the lumen. However, this was able to accommodate the colonoscope easily. We reach up to the level of 35 cm and withdraw the scope gently. This the lesion seemed to involve on a short segment, but was patent enough to allow passage of the scope easily. I would not do any biopsies. This appears to be smaller and less in volume compared to description of the previous scope prior to chemotherapy. I continued to withdraw the scope with desufflation until this was withdrawn completely She tolerated procedure well. There were no immediate complications. I will inform the oncologist of the above findings.
[2024-12-11 15:15] VITALS: BP 128/80; PULSE 99; RESP 18; TEMP 36.3; O2SAT 99
== END 2024-12-11 15:39 | disposition home or self-care (01) ==
PROVIDERS: PCP Physician Assistant Medical; Visit Provider Surgery
PROC: 0DJD8ZZ Inspection of Lower Intestinal Tract, Via Natural or Artificial Opening Endoscopic (ICD-10-PCS; CPT 45330; principal; 2024-12-11 14:30)
DX: C18.9 Malignant neoplasm of colon, unspecified (principal); C78.7 Secondary malignant neoplasm of liver and intrahepatic bile duct; G47.33 Obstructive sleep apnea (adult) (pediatric); E11.9 Type 2 diabetes mellitus without complications; E78.5 Hyperlipidemia, unspecified; D64.9 Anemia, unspecified; J45.909 Unspecified asthma, uncomplicated; E66.9 Obesity, unspecified; Z68.41 Body mass index [BMI] 40.0-44.9, adult; Z92.21 Personal history of antineoplastic chemotherapy; Z79.02 Long term (current) use of antithrombotics/antiplatelets; Z79.899 Other long term (current) drug therapy; Z79.84 Long term (current) use of oral hypoglycemic drugs
CPT/HCPCS: 45330; 82947; J2704

== ENCOUNTER → 2024-12-11 13:03 | Outpatient (BNV) | payer OTHER, SELFPAY | PROVIDERS: PCP Physician Assistant Medical; Visit Provider Surgery | DX: C18.9 Malignant neoplasm of colon, unspecified (principal) | CPT/HCPCS: 45330 ==

== ENCOUNTER 2024-12-23 11:22 | Outpatient (AMB) | payer OTHER, SELFPAY ==
[2024-12-23 11:28] VITALS: BP 138/98; PULSE 111; BMI 41.4
--- NOTE | 2024-12-23 11:28 | A.OFFVIS_ITS ---
Vital Signs 12/23/24 11:28 Height 5 ft 3 in Weight 234 lb BMI 41.4 BP 138/98 H Blood Pressure Location Rt brachial Position Sitting Pulse 111 H Intake Visit Reasons: S/P EUA, flex sig Intake Note: Patient here s/p EUA, flex sigmoid. Reports procedure went well. Patient c/o: no concerns. No longer taking rx pain meds. Surgery: Flexible sigmoidoscopy to level 35 cm. Quality Assurance Qa Lab Analyst Required: No Accompanied by: Son Allergies No Known Allergies Allergy (Verified 12/23/24 11:29) Medication List - Last Reconciled 12/23/24 by Severo Tim MD albuterol sulfate 3 mg inhalation Q4H PRN albuterol sulfate 90 mcg/actuation 2 inhalations inhalation Q6H PRN atorvastatin 40 mg PO DAILY bupropion HCl XL 300 mg PO DAILY bupropion HCl XL 150 mg PO DAILY butenafine 1% (Lotrimin Ultra) 1 appl topical BID cetirizine 10 mg PO DAILY cholecalciferol (vitamin D3) 125 mcg PO DAILY cyclobenzaprine 5 mg PO TID dexamethasone 4 mg PO BID fluticasone propionate 50 mcg/actuation 2 sprays intranasal BEDTIME iron,carbonyl-vitamin C 65 mg iron- 125 mg (Vitron-C) 1 tab PO DAILY 90 days Magic Mouthwash Diphen/Nystat/Antacid 1:1:1 10 mL PO QID metformin ER 1,000 mg PO BID minocycline 100 mg PO Q12H montelukast 10 mg PO DAILY ondansetron 8 mg PO Q8H PRN pantoprazole 40 mg PO DAILY phenazopyridine (Pyridium) 200 mg PO TID rizatriptan 10 mg PO DAILY MRX1 PRN triamcinolone acetonide 0.1% 1 appl topical DAILY triamcinolone acetonide 0.025% 1 appl topical BID PRN HPI HPI S/P EUA, flex sig: Details: She underwent flexible sigmoidoscopy last 12/09/2024 for her history of sigmoid colon adenocarcinoma. She tolerated procedure well. She currently denies significant complaints. [facility] Medical History Colon cancer Anemia Non-insulin dependent type 2 diabetes mellitus Migraines Fibromyalgia Mild intermittent asthma HLD (hyperlipidemia) Surgical History Hx of tubal ligation History of Ritchie colposuspension H/O knee surgery Family History Mother Diabetes Father Leukemia Daughter Asthma Son No problems noted. Son No problems noted. Daughter No problems noted. Paternal Grandfather Colon cancer Paternal Aunt Breast cancer Social History Household Members: Family and Children Household Members Other:: 4 Housing: Apartment Are you a primary aged or disabled carer to a significant other at home: No Do you presently have visiting nurse or other home services: No Alcohol intake: current Alcohol intake frequency: does not drink Patient Tobacco Use Status: Never used Tobacco service: No Current occupational status: unemployed Review of Systems Const Denies chills and Denies fever(s) Card Denies chest pain at rest Resp Denies cough GI Denies abdominal pain and Denies hematochezia Physical Exam Vital Signs: Last Vital Signs Pulse 111 H 12/23/24 11:28 BP 138/98 H 12/23/24 11:28 BMI result Body Mass Index 41.4 Const General: comfortable and no acute distress Nutritional Appearance: obese Resp Effort & Inspection: normal respiratory effort GI Palpation (GI): Soft to palpation, not firm, nontender and no guarding Assessment & Plan Assessment & Plan (1) Colon cancer metastasized to liver: Code(s): C18.9 - Malignant neoplasm of colon, unspecified; C78.7 - Secondary malignant neoplasm of liver and intrahepatic bile duct Category: Medical Plan: Flexible sigmoidoscopy done last 12/09/2024 shows the tumor to be present. This was however able to accommodate the colonoscope easily, suggesting some response to chemotherapy. However, the tumor seemed to be still circumferential. She is to follow up with Dr. Rasmussen as she will need to continue with palliative chemotherapy for now. She has known liver metastatic disease I told her that I will discuss the above with Dr. Rasmussen. He can otherwise follow up with me on a p.r.n. basis. Coding Level of Care Code Est Pt Level 2 (93238) Diagnoses Colon cancer metastasized to liver C18.9; C78.7
--- OUTSIDE RECORDS SUMMARY | 2024-12-23 12:40 | XMS_ITS | Clinical Summary ---
[facility] Address [address] [place] [address] Care Team Providers Care Procurement Consultant Name Role Phone Unavailable Primary Care Provider [...] Documents on File Type Date Recorded Patient Digital Art Director Expl anation Health Care Decision (hx) 09/17/2020 AD ROMERO DIRECTIVE Health Care Decision (hx) 09/17/2020 AD ROMERO DIRECTIVE Health Care Decision (hx) 09/11/2020 AD ROMERO DIRECTIVE
== END 2024-12-23 11:37 | disposition home or self-care (01) ==
LOC: HO.HGS 11:22
PROVIDERS: PCP Physician Assistant Medical; Visit Provider Surgery
DX: C18.9 Malignant neoplasm of colon, unspecified (principal); C78.7 Secondary malignant neoplasm of liver and intrahepatic bile duct
CPT/HCPCS: 99212

== ENCOUNTER → 2024-12-23 11:22 | Outpatient (BNVA) | payer OTHER, SELFPAY | PROVIDERS: PCP Physician Assistant Medical; Visit Provider Surgery | DX: C18.9 Malignant neoplasm of colon, unspecified (principal); C78.7 Secondary malignant neoplasm of liver and intrahepatic bile duct | CPT/HCPCS: 99212 ==

== ENCOUNTER 2025-01-15 15:10 | Outpatient (REF) | payer OTHER, SELFPAY ==
--- OUTSIDE RECORDS SUMMARY | 2025-01-15 18:03 | XMS_ITS | Clinical Summary ---
[facility] [address] [place] [address] Care Team Providers Care Quality Process Engineer Name Role Phone Unavailable Primary Care Provider [...] Documents on File Type Date Recorded Patient Smash Piecer Expl anation Health Care Decision (hx) 09/17/2020 AD ROMERO DIRECTIVE Health Care Decision (hx) 09/17/2020 AD ROMERO DIRECTIVE Health Care Decision (hx) 09/11/2020 AD ROMERO DIRECTIVE
== END 2025-01-15 15:11 | disposition home or self-care (01) ==
LOC: HO.MRI 15:10
PROVIDERS: PCP Internal Medicine; Visit Provider Internal Medicine Medical Oncology
DX: Z13.89 Encounter for screening for other disorder (principal)

== ENCOUNTER → 2025-01-26 16:03 | Outpatient (BNV) | payer OTHER, SELFPAY | PROVIDERS: PCP Internal Medicine; Visit Provider Radiology Diagnostic Radiology | DX: C78.7 Secondary malignant neoplasm of liver and intrahepatic bile duct (principal); K76.89 Other specified diseases of liver | CPT/HCPCS: 74183 ==

== ENCOUNTER 2025-01-26 16:04 | Outpatient (REF) | payer OTHER, SELFPAY ==
--- NOTE | ~2025-01-26 | MR_ITS ---
EXAMINATION: MR ABDOMEN WITHOUT THEN WITH IV CONTRAST HISTORY: Follow-up on liver lesions, on chemo COMPARISON: Correlation is made with a CT of the abdomen dated 09/02/2024. TECHNIQUE: Axial in and out of phase T1-weighted gradient echo, axial diffusion weighted, and axial and coronal HASTE T2 with fat saturation images were obtained through the abdomen. Subsequently, fat suppressed axial and coronal T1-weighted images were obtained after the intravenous administration of 10 mL Gadavist. FINDINGS: Liver: There is mild heterogeneous loss of signal intensity in the liver on opposed phase imaging, consistent with steatosis. Numerous mildly T2 hyperintense and enhancing masses are seen within the liver, several of which are new from the prior CT scan including a 3.4 cm mass in segment VII, and a 2.2 cm lesion in segment VIII. There is a 3.5 cm mass in segment IV which is larger than on the prior study (previously 1.9 cm). Numerous smaller enhancing masses are seen scattered throughout the left lobe. The hepatic and portal veins are patent. There is no intrahepatic biliary dilatation. Gallbladder/biliary tree: No gallstones are identified. The common bile duct is normal in caliber. No intraluminal filling defects are identified to suggest choledocholithiasis. Spleen: The spleen is unremarkable. Pancreas: The pancreas is unremarkable. There is no enhancing pancreatic mass. The pancreatic duct is normal in caliber. Adrenals: The adrenal glands are unremarkable. Kidneys: There is scarring at the upper pole of the right kidney and an adjacent 10 mm cyst. There is no hydronephrosis. Lymph nodes: There is no retroperitoneal lymphadenopathy in the upper abdomen. Fluid: There is no ascites in the upper abdomen. Visualized bowel: The visualized bowels loops are unremarkable in appearance. Visualized bones: The visualized bones demonstrate normal marrow signal intensity. MR/MR abdomen wo/w con IMPRESSION: Mild heterogeneous hepatic steatosis. Diffuse hepatic metastatic disease as described. Multiple lesions in the right lobe are new from the prior CT scan. Electronically signed by: Serafin Biggs MD 01/27/2025 08:49 AM EDT
--- OUTSIDE RECORDS SUMMARY | 2025-01-26 16:12 | XMS_ITS | Clinical Summary ---
[facility] [address] [place] [address] Care Team Providers Care Line Staker Name Role Phone Unavailable Primary Care Provider [...] (2023-2 5 season) 2024 Influenza Vaccine (#1) 2025 HIB Vaccines Aged Out No longer [...] Documents on File Type Date Recorded Patient Well Control Instructor Expl anation Health Care Decision (hx) 09/17/2020 AD ROMERO DIRECTIVE Health Care Decision (hx) 09/17/2020 AD ROMERO DIRECTIVE Health Care Decision (hx) 09/11/2020 AD ROMERO DIRECTIVE
== END 2025-01-26 16:05 | disposition home or self-care (01) ==
LOC: HO.MRI 16:04
PROVIDERS: PCP Internal Medicine; Visit Provider Internal Medicine Medical Oncology
DX: C18.9 Malignant neoplasm of colon, unspecified (principal); C78.7 Secondary malignant neoplasm of liver and intrahepatic bile duct
CPT/HCPCS: 74183; A9585

== ENCOUNTER 2025-05-22 14:20 | Outpatient (REF) | payer OTHER, SELFPAY ==
[2025-05-22] MEDS: iohexoL 350 MG/ML 100 ML INFUS..BTL IV (16:54)
[2025-05-22] MEDS: Barium Sulfate Oral (Berry) 450 ML ORAL.SUSP 900 ML PO (16:56)
--- OUTSIDE RECORDS SUMMARY | 2025-05-22 17:22 | XMS_ITS | Clinical Summary ---
[facility] Address [address] [place] [address] Care Team Providers Care Mangle Roller Name Role Phone Unavailable Primary Care Provider [...] Cervical Cancer Screening: P ap Smear 1998 Depression Screening 07/24/2024 COVID-19 Vaccine (1 - 2023-2 5 season) 2025 Influenza Vaccine (#1) 2025 RSV Immunization Adult Patie nts (1 - 1-dose 75+ series) 01/21/2052 HIB Vaccines Aged Out No longer eligi [...] 5 Years) and At-Risk Patients (6 to 49 Years) Aged Out No longer eligible b ased on patient's age to complete this topic RSV Immunization Patients Un clau 20 months Aged Out No longer eligible b ased on patient's age to complete this topic Varicella Vaccines Aged Out No longer eligible based on patient's age to complete this topic Advance Directives Documents on File Type Date Recorded Patient Time Stamp Assembler Expl anation Health Care Decision (hx) 09/17/2020 AD ROMERO DIRECTIVE Health Care Decision (hx) 09/17/2020 AD ROMERO DIRECTIVE Health Care Decision (hx) 09/11/2020 AD ROMERO DIRECTIVE
== END 2025-05-22 14:21 | disposition home or self-care (01) ==
LOC: HO.CT 14:20
PROVIDERS: PCP Internal Medicine; Visit Provider Internal Medicine Medical Oncology
DX: C18.9 Malignant neoplasm of colon, unspecified (principal)
CPT/HCPCS: 74177; Q9967

== ENCOUNTER → 2025-05-22 14:22 | Outpatient (BNV) | payer OTHER, SELFPAY | PROVIDERS: PCP Internal Medicine; Visit Provider Radiology Diagnostic Radiology | DX: C18.9 Malignant neoplasm of colon, unspecified (principal); K76.89 Other specified diseases of liver; K63.89 Other specified diseases of intestine; N83.8 Other noninflammatory disorders of ovary, fallopian tube and broad ligament | CPT/HCPCS: 74177 ==